=== PATIENT | male | born 1945 | race Caucasian/White ===

== ENCOUNTER 2018-12-21 16:47 | Inpatient (IN) | payer MEDICARE ==
[~2018-12-21] VITALS: Ht 168.9 cm; Wt 112.4 kg
[2018-12-21 17:19] LABS: BASOPHILS 0 % (0-2); EOSINOPHILS 2.4 % (0-7); HEMATOCRIT 27.4 % (42.0-54.0); HEMOGLOBIN 9.2 g/dL (13.5-17.5); IMMATURE GRANULOCYTES 0.2 % (0-5); LYMPHOCYTES 13.8 % (15-50); MCH 28.8 pg (26.0-34.0); MCHC 33.6 g/dL (31.0-37.0); MCV 85.9 fL (80.0-100.0); MEAN PLATELET VOLUME 10.9 fL (7.4-10.4); NEUTROPHILS 71.6 % (40-80); RBC 3.19 10x6/uL (4.20-6.10); RDW 15.1 % (11.5-14.5); WBC 5.1 10x3/uL (4.8-10.8)
[2018-12-21 17:34] LABS: PLATELET COUNT 164 10x3/uL (130-400)
[2018-12-21 17:41] LABS: ANION GAP 11.7 mmol/L (8-16); BILIRUBIN - TOTAL 0.28 mg/dL (0.2-1.3); CALCIUM 8.2 mg/dL (8.5-10.1); CARBON DIOXIDE 26.9 mmol/L (21.0-32.0); CREATININE - SERUM 4.4 mg/dL (0.6-1.3); POTASSIUM - SERUM 5.6 mmol/L (3.5-5.1); PROTEIN - SERUM 5.9 g/dL (6.4-8.2)
[2018-12-21 17:49] LABS: MAGNESIUM - SERUM 2.2 mg/dL (1.8-2.4); TROPONIN-I 0.025 ng/mL (0.000-0.060)
--- NOTE | 2018-12-21 18:37 | MORECARE ---
CASE MANAGEMENT DISCHARGE SUMMARY PATIENT: ABBY PHILLIPS UNIT: [id number] ADM DATE: 12/21/18 AGE: 73 : [birth year] SEX: M ROOM/BED: D.2137 AUTHOR: NICOLASA MATTHEWS PHYSICIAN: REFERRING PHYSICIAN: THANH ALEJANDRO MD DATE OF SERVICE: 12/21/18 Discharge Plan Patient Name: ABBY PHILLIPS Facility: [facility]:[place] : 1945 Planned Disposition: Anticipated Discharge Date: Discharge Date: Expected LOS: Initial Reviewer: [email or web address] Initial Review Date: 12/21/2018 Generated: 12/21/18 7:37 pm Patient Name: ABBY PHILLIPS Page 34531 at 1837 All edits/amendments must be made on the electronic document DICTATION DATE: 12/21/181836 INSURANCE SALES SPECIALIST: APRIL 12/21/181836 RPT#: [id number] DC DATE: STATUS: ADM IN [facility] [address] [place] [address] END OF REPORT
--- NOTE | 2018-12-21 18:39 | NUR ---
1837-RECEIVED VIA STRETCHER TO ROOM FROM THE ED. GLASSES ON. WALSH CATH PATENT WITH YELLOW URINE, SLIGHT BLOOD SEEN IN TUBING. RIGHT AC PIV SEEN WITH SALINE LOCK. ON 2L PER NC. PATIENT IS VERY EDEMATOUS TO ALL EXTREMITIES. BILATERAL SHINS ARE PINK/DISCOLORED TO THEM BILATERAL LARGE BANDAIDS SEEN TO KNEES. BOTTOM LOOKS GOOD, NO SKIN ISSUE THERE. SEEMS SLIGHTLY LETHARGIC. FAMILY IS AT BEDISIDE. SON IN ROOM CALLING FOR MED LIST.
[2018-12-21 18:44] LABS: % SATURATION 10 % (15-55); IRON 22 ug/dl (35-150); TOTAL IRON BIND CAPACITY 205 ug/dl (260-445); UNSAT IRON BIND CAPACITY 183 ug/dl (150-375)
[2018-12-21 18:53] LABS: THYROID STIMULATING HORMONE 5.11 uIU/mL (0.36-3.74)
[2018-12-21] MEDS ORDERED: BAYER ASPIRIN325 MG PO (19:57)
[2018-12-21] MEDS ORDERED: REQUIP1 MG PO ×2 (19:58→19:59)
[2018-12-21] MEDS ORDERED: LISINOPRIL5 MG PO (19:59)
[2018-12-21] MEDS ORDERED: ZYLOPRIM100 MG PO (20:01)
[2018-12-21] MEDS ORDERED: SYNTHROID50 MCG PO (20:03)
[2018-12-21] MEDS ORDERED: CARDURA4 MG PO (20:04)
[2018-12-21] MEDS ORDERED: LIPITOR20 MG PO (20:04)
[2018-12-21] MEDS ORDERED: LYRICA200 MG PO (20:05)
[2018-12-21] MEDS ORDERED: LASIX80 MG PO (20:05)
[2018-12-21] MEDS ORDERED: METOPROLOL TART50 MG PO (20:06)
[2018-12-21] MEDS ORDERED: NEXIUM40 MG PO (20:07)
[2018-12-21] MEDS ORDERED: PLAVIX75 MG PO (20:08)
[2018-12-21] MEDS ORDERED: FERROUS SULFAT325 MG PO (20:09)
[2018-12-21] MEDS ORDERED: VITAMIN D31000 UNIT PO (20:10)
[2018-12-21] MEDS ORDERED: TRAZODONE HCL150 MG PO (20:11)
[2018-12-21] MEDS ORDERED: QUESTRAN LIG1 PACKET PO (20:12)
[2018-12-21] MEDS ORDERED: METOLAZONE5 MG PO (20:12)
[2018-12-21 20:14] VITALS: BP 197/56; BMI 37.2
--- NOTE | 2018-12-21 20:46 | NUR ---
INITIAL ASSEESSMENT COMPLETED. RECIEVED BEDSIDE REPORT. VSS, WITH BP OF 190/56 WILL NOTIFY PROVIDER. AAOX3, WITH LETHARGY. BRUISES AND REDENNED AREA BILAT KNEES, BANDAGES INTACT. PT DENIES ANY NEED FOR PAIN BUT STATES HE FEELS A LITTLE DISCOMFORT IN WALSH SITE/GROIN AREA. MED LIST RECIEVED FROM FAMILY. MED REC COMPLETED. PT ON TELE @ 55 SINUS YVETTE. EXTRA WARM BLANKET PROVIDED AT THIS TIME PER PT REQUEST. PT DENIES ANY FURHTER NEEDS AT THIS TIME. WILL CPOC. CL WITHIN REACH, BED IN LOW, SR UP X2, O2 @ 2L.
--- NOTE | 2018-12-21 21:35 | NUR ---
NOTIFIED PT'S CONTACT LENS TECHNICIANKARLEY ABOUT BP OF 190'S AND PAIN. HE STATES HE WILL ORDER SOME MEDICATIONS AND HE WILL BE ON THE UNIT TO ASSESS PT.
--- NOTE | 2018-12-21 22:51 | NUR ---
PT RESTING IN BED WITH EYES CLOSE. REAASSED BP, 201/56. ALL MEDS GIVEN INCLUDING BP MEDS, AND PRN 10MG HYDRALAZINE. HELD METOPROLOL PER PHOTOGRAMMETRIC STEREO COMPILER ORDER, SINCE HR HAS BEEN RUNNING SINUS YVETTE ON TELE. PT DENIES ANY DISCOMFORT OR PAIN AT THIS TIME. WILL CTM BP.
[2018-12-22] VITALS: BP 201/56
--- NOTE | 2018-12-22 03:15 | NUR ---
BP NOW 155/63. PT LAYING IN BED WITH EYES CLOSED. DENIES ANY FURTHER NEEDS AT THIS TIME. WILL CTM.
[2018-12-22 04:00] VITALS: BP 171/55
[2018-12-22 05:09] LABS: BASOPHILS 0.2 % (0-2); HEMATOCRIT 26.3 % (42.0-54.0); HEMOGLOBIN 8.7 g/dL (13.5-17.5); IMMATURE GRANULOCYTES 0.2 % (0-5); LYMPHOCYTES 14.9 % (15-50); MCH 28.4 pg (26.0-34.0); MCHC 33.1 g/dL (31.0-37.0); MCV 85.9 fL (80.0-100.0); MEAN PLATELET VOLUME 10.9 fL (7.4-10.4); MONOCYTES 14.3 % (2-11); NEUTROPHILS 67.4 % (40-80); PLATELET COUNT 158 10x3/uL (130-400); RBC 3.06 10x6/uL (4.20-6.10); RDW 15.2 % (11.5-14.5)
--- NOTE | 2018-12-22 05:12 | NUR ---
ON ASSESSMENT PT BP 171/55. 0.5ML OF 20MG/ML OF HYDRALAZINE GIVEN @ THIS TIME PER PROVIDERS ORDER. WILL CTM. PT IN BED WITH EYES CLOSE. NO S/S OF DISTRESS.
[2018-12-22 05:27] LABS: ALBUMIN 2.8 g/dL (3.4-5.0); ANION GAP 13.3 mmol/L (8-16); BILIRUBIN - TOTAL 0.32 mg/dL (0.2-1.3); CALCIUM 8.2 mg/dL (8.5-10.1); CARBON DIOXIDE 24.1 mmol/L (21.0-32.0); CREATININE - SERUM 4.5 mg/dL (0.6-1.3); MAGNESIUM - SERUM 2.1 mg/dL (1.8-2.4); PHOSPHOROUS 5.3 mg/dL (2.5-4.9); POTASSIUM - SERUM 5.4 mmol/L (3.5-5.1); PROTEIN - SERUM 5.6 g/dL (6.4-8.2)
--- NOTE | 2018-12-22 07:27 | NUR ---
REPORT RECEIVED. WILL CONTINUE WITH POC. PT CURRENTLY LYING SUPINE. CALL LIGHT W/I REACH. PT IS RESTING AT THE MOMENT. RR EVEN AND UNLABORED ON 2L 02. R.AC PIV IS SALINE LOCKED. PT DENIES ANY NEEDS AT THIS TIME. NO S/S OF DISTRESS NOTED. WILL CTM.
[2018-12-22 08:33] VITALS: BP 142/52
[2018-12-22 10:10] LABS: COMPLEMENT C4 17.9 mg/dL (17.4-52.2)
[2018-12-22 11:15] LABS: ERYTHROCYTE SEDIMENTATION RATE 6 mm/hr (0-20)
[2018-12-22 11:52] VITALS: BP 151/94
[2018-12-22 14:21] VITALS: Ht 168.9 cm; Wt 112.4 kg
[2018-12-22 15:46] VITALS: BP 170/53
--- NOTE | 2018-12-22 17:33 | NUR ---
PT ON BIPAP UPON ENTERING ROOM AND PT REQUESTED TO TAKE OFF SO THAT HE COULD EAT DINNER. REMOVED BIPAP AND PT BEGAN TO EAT. FSBS @1630 WAS 97 AND RECEIVED NO INSULIN. PT HAS SWOLLEN TESTICLE AND COMPLAIN ON PAIN. DISCOVERED THAT THE STATLOCK WAS ORIGINALLY PLACED TOO FAR DOWN THE LEG. REMOVED OLD STATLOCK, CLEANED WALSH CATH, AND PLACED NEW STATLOCK SO THAT IT WOULD NOT PULL ON CATHETER. PT VERBALIZED THAT IT FELT BETTER. RR EVEN AND UNLABORED ON 2L 02. WILL PASS BIPAP ON ONCE PT FINISHED EATING DINNER. PT CLEANED AND NEW LINEN PLACED. WILL CTM. DOBUTAMINE INFUSING @2.5MCG/KG/MIN.
[2018-12-22 18:03] LABS: APPEARANCE CLOUDY (CLEAR); BILIRUBIN NEGATIVE (NEGATIVE); COLOR YELLOW (YELLOW); CREATININE - URINE 114.4 mg/dL (30-125); GLUCOSE NEGATIVE (NEGATIVE); KETONE NEGATIVE (NEGATIVE); NITRITE NEGATIVE (NEGATIVE); PROTEIN 2+ mg/dL (NEGATIVE); PROTEIN - URINE 232.1 mg/dL (0.0-11.9); SPECIFIC GRAVITY 1.015 (1.005-1.020); UROBILINOGEN NORMAL (NORMAL)
[2018-12-22 18:04] LABS: EPITHELIAL CELLS 0-5 /hpf (0-5); WHITE CELLS - URINE 0-5 /hpf (0-5)
[2018-12-22 18:05] LABS: BACTERIA FEW /hpf (NONE SEEN)
--- NOTE | 2018-12-22 18:36 | NUR ---
I have reviewed this patient and I concur with the Shift Assessment completed by the Licensed Practical Nurse today this shift.
--- NOTE | 2018-12-22 19:30 | NUR ---
PT ASLEEP, SNORING WITH MOUTH OPEN AT TIMES. 2L O2 NC. PT HAS NO S/S OF DISTRESS. RESP EVEN AND UNLABORED. NAME AND DATE PLACED ON BOARD. BED LOW AND CALL LIGHT IN REACH. WALSH CATH NOTED. NO KINKS AND OFF FLOOR. WILL CPOC
[2018-12-22 20:00] VITALS: BP 180/59
--- NOTE | 2018-12-22 23:14 | NUR ---
FSBS IS 113 NO INSULIN NEEDED. PT AAO TO NAME AND . REORIENTED PT TO PLACE AND YEAR AND SITUATION. PT ABLE TO TELL PLACE BEFORE NURSE LEFT ROOM NEEDED REORIENTATION ON YEAR AGAIN. PT DENIES ANY NEEDS. DOBUTAMINE INFUSING ORDERED. DENIES ANY NEEDS. ALARM ON AND ACTIVE. WILL CPOC
[2018-12-23] VITALS: BP 155/45
[2018-12-23 05:09] LABS: BASOPHILS 0 % (0-2); EOSINOPHILS 1.4 % (0-7); HEMATOCRIT 25.5 % (42.0-54.0); HEMOGLOBIN 8.5 g/dL (13.5-17.5); IMMATURE GRANULOCYTES 0.2 % (0-5); LYMPHOCYTES 13.3 % (15-50); MCH 28.3 pg (26.0-34.0); MCHC 33.3 g/dL (31.0-37.0); MEAN PLATELET VOLUME 11.3 fL (7.4-10.4); MONOCYTES 13.6 % (2-11); NEUTROPHILS 71.5 % (40-80); PLATELET COUNT 166 10x3/uL (130-400); RDW 15.2 % (11.5-14.5); WBC 6.3 10x3/uL (4.8-10.8)
--- NOTE | 2018-12-23 05:35 | NUR ---
PT ON BIPAP. TOOK OFF FOR MORNING MEDS AND PLACED BACK ON. PT BP IS ELEVATED. 196/57 PRN HYDRALAZINE GIVEN ORDERED. DOBUTAMINE INFUSING ORDERED. PT HAS NO S/S OF DISTRESS. BEDLOW AND CALL LIGHT IN REACH. ATTEMPTING TO COLLECT URINE THAT IS ORDERED FROM WALSH TUBE. WILL CPOC
[2018-12-23 05:51] LABS: ALBUMIN 2.8 g/dL (3.4-5.0); ANION GAP 12.7 mmol/L (8-16); BILIRUBIN - TOTAL 0.3 mg/dL (0.2-1.3); CALCIUM 8.2 mg/dL (8.5-10.1); CARBON DIOXIDE 25.7 mmol/L (21.0-32.0); CREATININE - SERUM 4.9 mg/dL (0.6-1.3); MAGNESIUM - SERUM 2.2 mg/dL (1.8-2.4); PHOSPHOROUS 5.4 mg/dL (2.5-4.9); POTASSIUM - SERUM 5.4 mmol/L (3.5-5.1); PROTEIN - SERUM 5.6 g/dL (6.4-8.2)
--- NOTE | 2018-12-23 05:57 | NUR ---
CLEANED PT AND CHANGED LINEN. PT HAS CONFUSION. NO S/S OF DISTRESS. PT CALL LIGHT IN REACH. ON 2L O2 NC. WILL CPOC
[2018-12-23 07:04] VITALS: BP 106/57
--- NOTE | 2018-12-23 07:34 | NUR ---
ROUNDING DONE WITH PATIENT LAYING ON BACK WITH 2L PER NC ON. RESTING WITH EYES CLOSED, AROUSES EASILY. ON HEART MONITOR SHOWING SR W BBB, HR 65. BIPAP IN ROOM. RIGHT AC PIV SEEN WITH DOBUTAMINE INFUSING AT 2.5 MCG/8 CC PER PUMP. WALSH CATH PATENT WITH YELLOW URINE.
--- NOTE | 2018-12-23 08:08 | NUR ---
PAGE INTO JOSE ALEJANDRO GARNER APN R/T B/P 132/30 AND PATIENT IS ON DOBUTAMINE AND ALSO SUPPOSE TO HAVE BUMEX. AWAITING CALL BACK.
[2018-12-23 08:13] VITALS: BP 132/30
--- NOTE | 2018-12-23 08:21 | NUR ---
JOSE ALEJANDRO GARNER APN TO CALL BACK. ASKED THAT I CALL MAYDA SANCHES APN. I DID AND SHE SAID TO GO AHEAD AND GIVE THE MEDS.
--- NOTE | 2018-12-23 08:35 | NUR ---
0830-PATIENT NOT OPENING HIS EYES OR RESPOMDIMNG TO ME WITH A STERNAL RUB. RAPID RESPONSE CALLED. PLACED ON BIPAP.
[2018-12-23 09:17] LABS: FOLATE (FOLIC ACID) - SERUM 5.3 ng/mL (>3.0)
--- NOTE | 2018-12-23 09:36 | NUR ---
PATIENT IS MORE AWAKE NOW, TALKING TO ME. STATES HE DOES NOT KNOW WHAT HAPPEN THIS AM. I TOLD HIM. WILL LEAVE HIM ON BIPAP.
--- NOTE | 2018-12-23 10:49 | NUR ---
MARCOS Caruso T TO PLACE PATIENT BACK ON NASAL CANNULA. DR MACIAS IN TO SEE PATIENT. AWAITING NEW ORDERS.
--- NOTE | 2018-12-23 11:59 | NUR ---
CALLED ISAAK IN PHARMACY FOR SOURAV.
[2018-12-23 12:21] VITALS: BP 157/51
--- NOTE | 2018-12-23 13:04 | NUR ---
ON NASAL CANNULA, AROUSES EASILY WHEN TOUCHED. ALERT AND TALKING.
--- NOTE | 2018-12-23 14:07 | NUR ---
CALL PLACED TO MAYDA SANCHES APN PATIENT HAS ONLY HAD 100 CC URINE OUTPUT FOR THIS SHIFT AT THIS TIME. HAD TO LEAVE A VOICEMAIL.
[2018-12-23 14:17] LABS: T4 THYROXINE 5.1 ug/dL (4.7-13.3)
--- NOTE | 2018-12-23 14:25 | NUR ---
PATIENT IS VERY LETHARGIC AGAIN WHILE ON BIPAP. MARCOS WITH RT HERE. VSS. B/P 156/43, SAT IS 94%, AND HR 69. FSBS IS 123. LOOKING THOUGH ORDERS CT HEAD NOT PLACED. STAT ORDER IN. 1450-RADIOLOGY HERE FOR STAT CT OF HEAD. FEMALE FAMILY MEMBERS HERE.
--- NOTE | 2018-12-23 15:15 | NUR ---
RETURNS FROM CT, AROUSES SOME.
[2018-12-23 16:47] VITALS: BP 187/45
--- NOTE | 2018-12-23 17:01 | NUR ---
TAKEN OFF BIPAP AND PLACED ON NASAL CANNULA. FAMILY AT BEDSIDE. PATIENT TO EAT SUPPER THEN I WILL PLACED HIM BACK ON IT.
--- NOTE | 2018-12-23 17:06 | NUR ---
NEW ORDERS PER DR ALEJANDRO R/T SIOBHAN.
--- NOTE | 2018-12-23 17:43 | NUR ---
PLACED BACK ON BIPAP. PATIENT IS ALERT AND TALKING TO LOTS OF FAMILY IN THE ROOM.
--- NOTE | 2018-12-23 18:03 | NUR ---
PATIENT HAS NOT HAD A BOWEL MOVEMENT FOR STOOL COLLECTION FOR THIS SHIFT. WILL PASS TO NEXT SHIFT.
[2018-12-23 20:00] VITALS: BP 143/30
--- NOTE | 2018-12-23 20:05 | NUR ---
RECIEVED LAYING IN BED WITH EYES CLOSED AND CPAP IN PLACE. OPENS EYES WITH VERBAL STIMULI. ORIENTED TO PERSON. F/C INTACT WITH CLEAR YELLOW URINE DRAINING TO BEDSIDE DRAINAGE BAG. TELEMETRY IN PLACE. IV TO RIGHT AC WITH DOBUTAMINE AT 8CC/HR AND D5NS AT 30CC/HE.REMAINS ON 100CC FLUID RESTRICTION.
[2018-12-23 20:06] LABS: SPE - A/G RATIO 1.4 (0.7-1.7); SPE - ALPHA-1 GLOBULIN 0.3 g/dL (0.0-0.4); SPE - ALPHA-2 GLOBULIN 0.6 g/dL (0.4-1.0); SPE - BETA GLOBULIN 0.6 g/dL (0.7-1.3); SPE - GAMMA GLOBULIN 0.8 g/dL (0.4-1.8); SPE - M-SPIKE Not Observed g/dL (Not Observed); SPE - TOTAL PROTEIN 5.2 g/dL (6.0-8.5)
[2018-12-24] VITALS: BP 189/50
--- NOTE | 2018-12-24 03:39 | NUR ---
C/O CPAP MASK HURTING HIS NOSE. FOAM DSG APPLIED TO EASE PRESSURE. STATES IT FEELS BETTER.
[2018-12-24 05:00] VITALS: BP 136/69
--- NOTE | 2018-12-24 07:46 | NUR ---
ROUNDING DONE WITH PATIENT BEING ON BIPAP, AROUSES EASILY WHEN AWOKEN. ON HEART MONITOR SHOWING SR W BBB, HR 71. RIGHT AC PIV WITH DOBUTAMINE INFUSING AT 8 CC/HR. WALSH CATH PATENT WITH YELLOW URINE. GENITALS ARE VERY SWOLLEN. NPO STATUS FOR POSSIBLE SURGERY TODAY. COMPLETE SURGERY BATH AND LINENS DONE.
[2018-12-24 08:00] LABS: BASOPHILS 0 % (0-2); EOSINOPHILS 1.8 % (0-7); HEMATOCRIT 24.9 % (42.0-54.0); HEMOGLOBIN 8.4 g/dL (13.5-17.5); IMMATURE GRANULOCYTES 0.2 % (0-5); LYMPHOCYTES 13.5 % (15-50); MCH 28.4 pg (26.0-34.0); MCHC 33.7 g/dL (31.0-37.0); MCV 84.1 fL (80.0-100.0); MEAN PLATELET VOLUME 11.1 fL (7.4-10.4); MONOCYTES 18.6 % (2-11); NEUTROPHILS 65.9 % (40-80); PLATELET COUNT 169 10x3/uL (130-400); RBC 2.96 10x6/uL (4.20-6.10); RDW 15.2 % (11.5-14.5); WBC 6.5 10x3/uL (4.8-10.8)
[2018-12-24 08:26] LABS: ALBUMIN 2.7 g/dL (3.4-5.0); ANION GAP 13.9 mmol/L (8-16); BILIRUBIN - TOTAL 0.31 mg/dL (0.2-1.3); CALCIUM 8.2 mg/dL (8.5-10.1); CREATININE - SERUM 5.4 mg/dL (0.6-1.3); MAGNESIUM - SERUM 2.2 mg/dL (1.8-2.4); PHOSPHOROUS 5.3 mg/dL (2.5-4.9); POTASSIUM - SERUM 4.9 mmol/L (3.5-5.1); PROTEIN - SERUM 5.5 g/dL (6.4-8.2)
--- NOTE | 2018-12-24 09:24 | NUR ---
I TRIED CALLING [employer]) TO LET HER KNOW THAT PATIENT IS GOING TO SURGERY TODAY. LEFT VOICE MAIL.
--- NOTE | 2018-12-24 09:40 | EC ---
PATIENT:ABBY PHILLIPS DATE OF SERVICE: 12/21/18 SEX: M MEDICAL RECORD: [id number] DATE OF : [birth year] LOCATION:D.M2 D.213 AGE OF PATIENT: 73 ADMISSION DATE: 12/21/18 REFERRING PHYSICIAN: INTERPRETING PHYSICIAN: HOLLIS KINGSTON MD ECHOCARDIOGRAM REPORT ECHO CHARGES 4 ECHO COMPLETE Date: 12/22/18 CLINICAL DIAGNOSIS: DYSPNEA ECHOCARDIOGRAPHIC MEASUREMENTS (adult normal given) AC root (d.<3.7cm) 2.7 cm LV Septum d (<1.2 cm> 1.0 cm Valve Excursion 1.1 cm LV Septum (systole) 1.7 cm Left Atria (s.<4.0cm> 4.5 cm LVPW d(<1.2cm) 1.2 cm RV (d.<2.3cm) 3.4 cm LVPW (sytole) 1.5 cm LV diastole(<5.6CM) 6.2 cm MV E-F(>70mm/sec) cm LV systole 3.7 cm LVOT Diameter 1.5 cm MV exc.(>10mm) cm Est.ejection fraction (50-75%) % DOPPLER: LVIT cm/sec A 92 cm/sec E 104 cm/sec LA cm/sec RVSP 53.5 mmHg LVOT 128 cm/sec AOP1/2T m/s Asc. Ao 191 cm/sec RVOT 79 cm/sec RA cm/sec PA 108 cm/sec AV Gradient Peak 14.6 mmHg AV Mean 9.2 mmHg AV Area 1.2 cm MV Gradient Peak mmHg MV Mean mmHg MV Area cm COMMENTS: Structural Mill Supervisor: Petar HERNÁNDEZ Store Specialist: 1 Dr. Kingston TAPE# PACS Pericardial Effusion N DATE OF SERVICE: FINDINGS: 1. Left ventricular chamber size is mildly dilated. Left ventricular systolic function is preserved at 55%. 2. Left atrium is enlarged at 4.5 cm. Right atrium and right ventricular chamber sizes are within normal limits. 3. Valvular structures have normal structure and motion. 4. Doppler interrogation reveals mild tricuspid regurgitation, no other valvular insufficiency or stenosis; however, pulmonary systolic pressure is ECHOCARDIOGRAM REPORT [id number] ABBY PHILLIPS elevated at 54 mmHg. 5. No evidence of pericardial effusion or left ventricular thrombus. TRANSINT:[id number] Voice Confirmation ID: [id number] DOCUMENT ID: [id number] HOLLIS KINGSTON MD at 0940 CC: [id number] DICTATION DATE: 12/22/18951 WELFARE ELIGIBILITY INTERVIEWER: 12/22/18 1219 ADM IN [facility] [address] [id number]
--- NOTE | 2018-12-24 09:40 | NUR ---
0936-PERMITS ARE SIGNED.
[2018-12-24 10:06] LABS: INR 1.18 (0.85-1.17); PROTIME 14.4 SECONDS (11.6-15.0)
--- NOTE | 2018-12-24 11:05 | MORECARE ---
CASE MANAGEMENT DISCHARGE SUMMARY PATIENT: ABBY PHILLIPS UNIT: [id number] ADM DATE: 12/21/18 AGE: 73 : [birth year] SEX: M ROOM/BED: D.2137 AUTHOR: NICOLASA MATTHEWS PHYSICIAN: REFERRING PHYSICIAN: THANH ALEJANDRO MD DATE OF SERVICE: 12/24/18 Discharge Plan Patient Name: ABBY PHILLIPS [facility] : 1945 Planned Disposition: Anticipated Discharge Date: Discharge Date: Expected LOS: Initial Reviewer: [email or web address] Initial Review Date: 12/21/2018 Generated: 12/24/18 12:04 pm DCPIA - Discharge Planning Initial Assessment Updated by [email or web address]: Lizzie Basurto on 12/24/18 10:58 am * Is the patient Alert and Oriented? Yes * How many steps to enter\exit or inside your home? NONE * PCP [facility] SEAN FRIEDMAN * Pharmacy [facility] IN [place], [place] * Preadmission Environment Home with Family * ADLs Independent * Equipment BIPAP Cane Oxygen Wheelchair * Other Equipment OXYGEN STATIONARY UNIT AND PORTABLE, CANE, WHEELCHAIR, SHOWER CHAIR * List name and contact numbers for known caregivers / representatives who currently or will assist patient after discharge: [facility] [phone] * Verbal permission to speak to the caregivers and representatives has been obtained from the patient. No * Community resources currently utilized None * Please name any agencies selected above. N/A * Additional services required to return to the preadmission environment? Yes * Can the patient safely return to the preadmission environment? Yes * Has this patient been hospitalized within the prior 30 days at any hospital? No Last DP export: 12/21/18 5:37 p Patient Name: ABBY PHILLIPS Page 13587 at 1105 All edits/amendments must be made on the electronic document DICTATION DATE: 12/24/18 110 FOOT ORTHOPEDIST: APRIL 12/24/18 1104 RPT#: [id number] DC DATE: STATUS: ADM IN [facility] [address] [place] [address] END OF REPORT
--- NOTE | 2018-12-24 11:15 | MORECARE ---
CASE MANAGEMENT DISCHARGE SUMMARY PATIENT: ABBY PHILLIPS UNIT: [id number] ADM DATE: 12/21/18 AGE: 73 : [birth year] SEX: M ROOM/BED: D.7695 AUTHOR: BYRON,DOC PHYSICIAN: REFERRING PHYSICIAN: THANH ALEJANDRO MD DATE OF SERVICE: 12/24/18 Discharge Plan Patient Name: ABBY PHILLIPS Facility: [facility]:[place] : 1945 Planned Disposition: Anticipated Discharge Date: Discharge Date: Expected LOS: Initial Reviewer: [email or web address] Initial Review Date: 12/21/2018 Generated: 12/24/18 12:15 pm Comments DCP- Discharge Planning Updated by [id number]: Lizzie Basurto on 12/24/18 10:[address] CM VISITED W/ THE PATIENT AT THE BEDSIDE. HE STATES HE IS FEELING WORSE TODAY. PATIENT IS NPO FOR SURGERY FOR DIALYSIS ACCESS. HE STATED HE WAS COLD. CM PROVIDED A WARM BLANKET. HE STATED HE HAD ABDOMINAL PAIN AND "WAS HURTING ALL OVER." CM ADVISED HIS PRIMARY NURSE. THE PATIENT PLANS TO RETURN TO HOME AT DISCHARGE. LIVES WITH HIS SISTER. IS WILLING TO CONSIDER HOME HEALTH IF NEEDED. DID NOT GO INTO A LONG EXPLANATION HE IS UNCOMFORTABLE. HAS DME NOTED BUT CANNOT RECALL THE PROVIDER'S NAME. THE DME COMPANY IS LOCATED IN [place]. PHARMACY- [facility] IN [place] PCP IS LOCATED IN [facility]. CM WILL F/U WHEN PATIENT IS MORE COMFORTABLE. DCPIA - Discharge Planning Initial Assessment Updated by [email or web address]: Lizzie Basurto on 12/24/18 10:58 am * Is the patient Alert and Oriented? Yes * How many steps to enter\\exit or inside your home? NONE * PCP [facility] SEAN FRIEDMAN * Pharmacy [facility] IN [place], [place] * Preadmission Environment Home with Family * ADLs Independent * Equipment BIPAP Cane Oxygen Wheelchair * Other Equipment OXYGEN STATIONARY UNIT AND PORTABLE, CANE, WHEELCHAIR, SHOWER CHAIR * List name and contact numbers for known caregivers / representatives who currently or will assist patient after discharge: PARRISH GORDON- [facility]- [phone] * Verbal permission to speak to the caregivers and representatives has been obtained from the patient. No * Community resources currently utilized None * Please name any agencies selected above. N/A * Additional services required to return to the preadmission environment? Yes * Can the patient safely return to the preadmission environment? Yes * Has this patient been hospitalized within the prior 30 days at any hospital? No Last DP export: 12/24/18 10:05 a Patient Name: ABBY PHILLIPS Page 31892 at 1115 All edits/amendments must be made on the electronic document DICTATION DATE: 12/24/18 111 FARE REGISTER REPAIRER: APRIL 12/24/181113 RPT#: [id number] ID DATE: STATUS: ADM IN [facility] [address] [place] [address] END OF REPORT
--- NOTE | 2018-12-24 11:22 | NUR ---
TO OR VIA BED WITH PRE-OP OF ANCEF.
--- NOTE | 2018-12-24 13:55 | NUR ---
Nutrition follow-up: Pt NPO for sursgery today; dailysis access placement PO intake of renal diet has been ~75% of meal Labs reviewed WT: 233# RDN following.
--- NOTE | 2018-12-24 14:34 | NUR ---
PATIENT TO RETURN TO ROOM WITH NO SURGERY DONE AT THIS TIME. I CALLED SURGERY TO HAVE SOMEONE PLEASE COME AND TALK TO THE FAMILY. NO ANSWER.
--- NOTE | 2018-12-24 14:47 | NUR ---
DR RAE OFFICE TO CALL AND SPEAK TO HANDY (SISTER) AND TELLS HER THAT SURGERY HAS BEEN PUT OFF TILL THURSDAY. THIS IS WHAT HANDY TELLS ME. APPLE JUICE AND CRANBERRY JUICE GIVEN TO PATIENT.
[2018-12-24 16:11] LABS: ANCA - ANTIMYELOPEROXIDASE <9.0 U/mL (0.0-9.0); ANCA - ANTIPROTEINASE 3 <3.5 U/mL (0.0-3.5); ANCA - ATYPICAL <1:20 titer (Neg:<1:20); ANCA - CYTOPLASMIC <1:20 titer (Neg:<1:20); ANCA - PERINUCLEAR <1:20 titer (Neg:<1:20)
[2018-12-24 17:09] LABS: UPE RAND - ALBUMIN 68.9 % (()); UPE RAND - ALPHA 1 GLOBULIN 1.2 % (()); UPE RAND - ALPHA 2 GLOBULIN 5.1 % (()); UPE RAND - BETA GLOBULIN 11.1 % (()); UPE RAND - GAMMA GLOBULIN 13.6 % (())
--- NOTE | 2018-12-24 17:17 | MORECARE ---
CASE MANAGEMENT DISCHARGE SUMMARY PATIENT: ABBY PHILLIPS UNIT: [id number] ADM DATE: 12/21/18 AGE: 73 : 47 SEX: M ROOM/BED: D.5235 AUTHOR: BYRON,DOC PHYSICIAN: REFERRING PHYSICIAN: THANH ALEJANDRO MD DATE OF SERVICE: 12/24/18 Discharge Plan Patient Name: ABBY PHILLIPS Facility: [facility]:[place] : 1945 Planned Disposition: Home Anticipated Discharge Date: Discharge Date: Expected LOS: Initial Reviewer: [email or web address] Initial Review Date: 12/21/2018 Generated: 12/24/18 6:17 pm Comments DCP- Discharge Planning Updated by [email or web address]: Lizzie Basurto on 12/24/18 10:[address] CM VISITED W/ THE PATIENT AT THE BEDSIDE. HE STATES HE IS FEELING WORSE TODAY. PATIENT IS NPO FOR SURGERY FOR DIALYSIS ACCESS. HE STATED HE WAS COLD. CM PROVIDED A WARM BLANKET. HE STATED HE HAD ABDOMINAL PAIN AND "WAS HURTING ALL OVER." CM ADVISED HIS PRIMARY NURSE. THE PATIENT PLANS TO RETURN TO HOME AT DISCHARGE. LIVES WITH HIS SISTER. IS WILLING TO CONSIDER HOME HEALTH IF NEEDED. DID NOT GO INTO A LONG EXPLANATION HE IS UNCOMFORTABLE. HAS DME NOTED BUT CANNOT RECALL THE PROVIDER'S NAME. THE DME COMPANY IS LOCATED IN [place]. PHARMACY- [facility] IN [place] PCP IS LOCATED IN [facility]. CM WILL F/U WHEN PATIENT IS MORE COMFORTABLE. DCPIA - Discharge Planning Initial Assessment Updated by [id number]: Lizzie Basurto on 12/24/18 10:58 am * Is the patient Alert and Oriented? Yes * How many steps to enter\\exit or inside your home? NONE * PCP [facility] SEAN FRIEDMAN * Pharmacy [facility] IN [place], [place] * Preadmission Environment Home with Family * ADLs Independent * Equipment BIPAP Cane Oxygen Wheelchair * Other Equipment OXYGEN STATIONARY UNIT AND PORTABLE, CANE, WHEELCHAIR, SHOWER CHAIR * List name and contact numbers for known caregivers / representatives who currently or will assist patient after discharge: PARRISH GORDON- [facility]- [phone] * Verbal permission to speak to the caregivers and representatives has been obtained from the patient. No * Community resources currently utilized None * Please name any agencies selected above. N/A * Additional services required to return to the preadmission environment? Yes * Can the patient safely return to the preadmission environment? Yes * Has this patient been hospitalized within the prior 30 days at any hospital? No Last DP export: 12/24/18 10:15 a Patient Name: ABBY PHILLIPS Page 53049 at 1717 All edits/amendments must be made on the electronic document DICTATION DATE: 12/24/181716 GAS PLANT OPERATOR: APRIL 12/24/181716 RPT#: [id number] DC DATE: STATUS: ADM IN [facility] [address] [place] [address] END OF REPORT
--- NOTE | 2018-12-24 17:19 | NUR ---
SITTING UP IN THE BED EATING SUPPER, FEMALE MEMBER AT BEDSIDE. EMPTIED 700 CC OF CLEAR URINE FROM WALSH CATH. PATIENT IS ALERT AND TALKING. WILL CONTINUE TO MONITOR AND ASSESS OFTEN.
--- NOTE | 2018-12-24 17:38 | NUR ---
NO BOWEL MOVEMENT FOR THIS SHIFT TO BE OBTAINED, WILL PASS TO NEXT SHIFT.
[2018-12-24 17:57] VITALS: BP 115/44
--- NOTE | 2018-12-24 18:04 | NUR ---
CHARLEY (SON ) AND DR COOPER ARE AWARE OF SURGERY FOR HEMISPLIT TOMORROW. I ALSO CALLED HARJIT REBOLLEDOSPEEDER MACHINE OPERATOR AND MADE AWARE OF SURGERY.
--- NOTE | 2018-12-24 19:08 | NUR ---
PATIENT CLEANED UP FROM LARGE AMOUT STOOL, SENT TO LAB OREFERED.
--- NOTE | 2018-12-24 19:30 | NUR ---
EVENING ROUNDS COMPLETED. REPORT RECEIVED. PT SITTING UP IN BED WITH EYES OPEN, RR EVEN AND UNLABORED. BED IN LOW POSITION. NO S/S OF DISTRESS NOTED. 72 SINUS ON TELEMETRY. INTRODUCED SELF TO PT. PT REQUESTED TO BE PLACED ON BIPAP. NOTIFIED RESPIRATORY. PT DENIES FURTHER NEEDS AT THIS TIME. CALL LIGHT IN REACH. WILL CTM.
[2018-12-24 20:00] VITALS: BP 191/65
[2018-12-25] VITALS: BP 172/64
--- NOTE | 2018-12-25 01:23 | NUR ---
ADMINISTERED ORDERED PHENERGRAN FOR PT COMPLAINTS OF NAUSEA, ASSISTED PT IN ADJUSTING BIPAP SECURELY. PT DENIES FURTHER NEEDS AT THIS TIME. CALL LIGHT IN REACH. WILL CTM.
[2018-12-25 04:00] VITALS: BP 110/97
--- NOTE | 2018-12-25 04:39 | NUR ---
I have reviewed this patient and I concur with the Shift Assessment completed by the Licensed Practical Nurse today this shift.
[2018-12-25 05:43] LABS: BASOPHILS 0.2 % (0-2); EOSINOPHILS 1.7 % (0-7); HEMOGLOBIN 8.8 g/dL (13.5-17.5); IMMATURE GRANULOCYTES 2.3 % (0-5); LYMPHOCYTES 12.7 % (15-50); MCH 28.5 pg (26.0-34.0); MCHC 33.8 g/dL (31.0-37.0); MCV 84.1 fL (80.0-100.0); MONOCYTES 15.5 % (2-11); NEUTROPHILS 67.6 % (40-80); PLATELET COUNT 161 10x3/uL (130-400); RBC 3.09 10x6/uL (4.20-6.10); RDW 15.2 % (11.5-14.5)
[2018-12-25 05:44] LABS: WBC 8.2 10x3/uL (4.8-10.8)
[2018-12-25 06:09] LABS: ALBUMIN 2.6 g/dL (3.4-5.0); ANION GAP 14.2 mmol/L (8-16); BILIRUBIN - TOTAL 0.35 mg/dL (0.2-1.3); CALCIUM 8.1 mg/dL (8.5-10.1); CARBON DIOXIDE 21.8 mmol/L (21.0-32.0); CREATININE - SERUM 4.8 mg/dL (0.6-1.3); MAGNESIUM - SERUM 2.2 mg/dL (1.8-2.4); PHOSPHOROUS 4.6 mg/dL (2.5-4.9); PROTEIN - SERUM 5.7 g/dL (6.4-8.2)
[2018-12-25 10:08] VITALS: BP 135/48
--- NOTE | 2018-12-25 10:32 | NUR ---
ROHITH YANEZ AT BEDSIDE AND STATED THAT TEXT HER THIS AM AND PATIENT WILL HAVE DIALYSIS ACCESS PLACEMENT ON THURSDAY BECAUSE HIS CREATININE HAS IMPROVED AND DOES NOT NEED DIALYSIS RIGHT NOW. THIS JOURNEYMAN WELDER WAS UNAWARE OF CHANGES AND HAS KEPT PATIENT NPO ALL MORNING.
--- NOTE | 2018-12-25 11:57 | NUR ---
FSBS 107. NO INSULIN PER SLIDING SCALE.
--- NOTE | 2018-12-25 17:31 | NUR ---
FSBS 196. 2 UNITS HUMALOG ADMINISTERED PER SLIDING SCALE. MEDICATED FOR PAIN AT THIS TIME.
[2018-12-25 18:55] VITALS: BP 210/61
--- NOTE | 2018-12-25 19:30 | NUR ---
EVENING ROUNDS COMPLETED. REPORT RECEIVED. PT SITTING UP IN BED WITH EYES OPEN, RR EVEN AND UNLABORED. NO S/S OF DISTRESS NOTED. CALL LIGHT IN REACH. INTRODUCED SELF TO PT. PT DENIES FURTHER NEEDS AT THIS TIME. WILL CTM.
[2018-12-25 20:00] VITALS: BP 180/68
[2018-12-26] VITALS: BP 188/70
--- NOTE | 2018-12-26 01:22 | NUR ---
ADMINISTERED ORDERED HYDRALAZINE FOR PT BLOOD PRESSURE OF 199/65.
--- NOTE | 2018-12-26 02:54 | NUR ---
PT BLOOD PRESSURE HAS DECREASED TO 175/34. WILL CTM.
--- NOTE | 2018-12-26 03:20 | NUR ---
I have reviewed this patient and I concur with the Shift Assessment completed by the Licensed Practical Nurse today this shift.
[2018-12-26 04:00] VITALS: BP 185/80
[2018-12-26 06:43] LABS: BASOPHILS 0.1 % (0-2); EOSINOPHILS 3.4 % (0-7); HEMATOCRIT 24.2 % (42.0-54.0); HEMOGLOBIN 8.3 g/dL (13.5-17.5); IMMATURE GRANULOCYTES 0.3 % (0-5); LYMPHOCYTES 11.3 % (15-50); MCH 28.8 pg (26.0-34.0); MCHC 34.3 g/dL (31.0-37.0); MEAN PLATELET VOLUME 11.5 fL (7.4-10.4); MONOCYTES 13.3 % (2-11); NEUTROPHILS 71.6 % (40-80); PLATELET COUNT 187 10x3/uL (130-400); RBC 2.88 10x6/uL (4.20-6.10); RDW 15.4 % (11.5-14.5)
--- NOTE | 2018-12-26 07:00 | NUR ---
RECEIVED REPORT. ASSUMED CARE OF PATIENT. CALL LIGHT WITHIN REACH. NO DISTRESS. RESTING WELL WITH EYES CLOSED, EASILY AROUSED. RESP EVEN AND UNLABORED. F/C TO DRAINAGE VIA GRAVITY. DENIES PAIN.
[2018-12-26 07:14] LABS: ALBUMIN 2.5 g/dL (3.4-5.0); ANION GAP 12.8 mmol/L (8-16); BILIRUBIN - TOTAL 0.28 mg/dL (0.2-1.3); CALCIUM 8.1 mg/dL (8.5-10.1); CARBON DIOXIDE 25.5 mmol/L (21.0-32.0); CREATININE - SERUM 4.3 mg/dL (0.6-1.3); MAGNESIUM - SERUM 2.1 mg/dL (1.8-2.4); PHOSPHOROUS 4.4 mg/dL (2.5-4.9); POTASSIUM - SERUM 4.3 mmol/L (3.5-5.1); PROTEIN - SERUM 5.5 g/dL (6.4-8.2)
[2018-12-26 08:51] VITALS: BP 181/60
--- NOTE | 2018-12-26 08:54 | NUR ---
RESTING IN BED. CONSUMED AM MEAL. NO DISTRESS. CALL LIGHT WITHIN REACH.
--- NOTE | 2018-12-26 11:01 | NUR ---
ASSISTED PATIENT BACK TO BED WITH THE HELP OF PHYSICAL THERAPY. NEW STAT LOCK TO RIGHT THIGH APPLIED OLD ONE HAS CAME OFF. NO DISTRESS. RESTING WITH EYES CLOSED.
--- NOTE | 2018-12-26 11:56 | NUR ---
EPOGEN NOT AVAILABLE FROM PHARMACY YET. STILL WAITING.
--- NOTE | 2018-12-26 11:57 | NUR ---
FSBS 172. 2 UNITS HUMALOG ADMINISTERED PER SLIDING SCALE. NO DISTRESS.
[2018-12-26 12:07] VITALS: BP 173/60
[2018-12-26 16:59] VITALS: BP 170/60
--- NOTE | 2018-12-26 17:32 | NUR ---
FSBA 176. 2 UNITS HUMULOG ADMINISTERED PER SLIDING SCALE. PATIENT SITTING UP IN BED CONSUMING PM MEAL WITH FAMILY AT BEDSIDE. NO DISTRESS.
[2018-12-26 20:00] VITALS: BP 180/60
--- NOTE | 2018-12-26 23:51 | NUR ---
EVENING ROUNDS COMPLETED. REPORT RECEIVED. PT SITTING UP IN BED WITH EYES OPEN, BIPAP IN PLACE. EVENING MEDICATIONS ADMINISTERED WITHOUT ISSUE. 167 BLOOD SUGAR TREATED ORDERED PER SLIDING SCALE. NO S/S OF DISTRESS NOTED. CALL LIGHT IN REACH. WILL CTM.
[2018-12-27] VITALS: BP 170/77
--- NOTE | 2018-12-27 01:10 | NUR ---
ADMINISTERED ORDERED CATAPRES 0.1 MG TAB FOR PT BLOOD PRESSURE OF 179/77.
[2018-12-27 04:00] VITALS: BP 166/40
--- NOTE | 2018-12-27 04:00 | NUR ---
I have reviewed this patient and I concur with the Shift Assessment completed by the Licensed Practical Nurse today this shift.
[2018-12-27 05:37] LABS: BASOPHILS 0.1 % (0-2); EOSINOPHILS 2.8 % (0-7); HEMATOCRIT 24.1 % (42.0-54.0); HEMOGLOBIN 8.1 g/dL (13.5-17.5); IMMATURE GRANULOCYTES 0.3 % (0-5); LYMPHOCYTES 10.2 % (15-50); MCH 28.5 pg (26.0-34.0); MCHC 33.6 g/dL (31.0-37.0); MCV 84.9 fL (80.0-100.0); MEAN PLATELET VOLUME 11.2 fL (7.4-10.4); MONOCYTES 13.2 % (2-11); NEUTROPHILS 73.4 % (40-80); PLATELET COUNT 189 10x3/uL (130-400); RBC 2.84 10x6/uL (4.20-6.10); RDW 15.4 % (11.5-14.5); WBC 7.4 10x3/uL (4.8-10.8)
[2018-12-27 06:10] LABS: ALBUMIN 2.5 g/dL (3.4-5.0); ANION GAP 13.5 mmol/L (8-16); BILIRUBIN - TOTAL 0.32 mg/dL (0.2-1.3); CALCIUM 8.1 mg/dL (8.5-10.1); CARBON DIOXIDE 25.4 mmol/L (21.0-32.0); POTASSIUM - SERUM 3.9 mmol/L (3.5-5.1); PROTEIN - SERUM 5.7 g/dL (6.4-8.2)
[2018-12-27 08:00] VITALS: BP 179/66
[2018-12-27 12:12] VITALS: BP 182/61
[2018-12-27 16:24] VITALS: BP 183/58
[2018-12-27 20:00] VITALS: BP 103/58; BP 188/42
--- NOTE | 2018-12-27 20:10 | NUR ---
EVENING ROUNDS COMPLETED. PT APPEARS LETHARGIC ON INITIAL ASSESSMENT,EASY TO AROUSE. PT PIV INFILTRATED. REMOVED IV, APPLIED 2X2 GAUZE AND TAPED. RESTART A NEW PIV ON PT'S LAC 22G X1 STICK. PT TOLERATE WELL. PT CURRENLTY ON 4L O2 HIGHFLOW. TELEMTRY ON, BRUISES BILAT ARM AND REDDENED BUTTOCKS. PT CURRENTLY SITTING UP IN BED. DENIES ANY FURTHER NEEDS AT THIS TIME. WILL CPOC.
--- NOTE | 2018-12-28 02:32 | NUR ---
ATTEMPTED TO GET AN EKG ON PT. PT REFUSED EKG. STATES "I TOLD MY DOCTOR I DON'T WANT NO EKG, I WANT Y'ALL TO LEAVE ME ALONE, I DON'T WANT NOBODY SNOOPING AROUNDS." PT CURRENTLY ON BIPAP @ THIS TIME. WILL CTM.
[2018-12-28 04:00] VITALS: BP 118/60
[2018-12-28 06:31] LABS: BASOPHILS 0.1 % (0-2); EOSINOPHILS 2.4 % (0-7); HEMOGLOBIN 8.2 g/dL (13.5-17.5); IMMATURE GRANULOCYTES 0.1 % (0-5); LYMPHOCYTES 8.3 % (15-50); MCH 28.3 pg (26.0-34.0); MCHC 32.8 g/dL (31.0-37.0); MCV 86.2 fL (80.0-100.0); MEAN PLATELET VOLUME 11.5 fL (7.4-10.4); MONOCYTES 14.2 % (2-11); NEUTROPHILS 74.9 % (40-80); PLATELET COUNT 218 10x3/uL (130-400); RDW 15.4 % (11.5-14.5); WBC 7.6 10x3/uL (4.8-10.8)
--- NOTE | 2018-12-28 06:41 | NUR ---
PT REFUSED TO GET HIS FSBS CHECKED. STATES "I DON'T WANNA BE DISTURBED RIGHT NOW." PT ALSO REFUSED HIS AM SYNTHROID. WILL TRANFER REPORT TO INCOMING NURSE.
[2018-12-28 06:49] LABS: ALBUMIN 2.6 g/dL (3.4-5.0); ANION GAP 13.5 mmol/L (8-16); BILIRUBIN - TOTAL 0.32 mg/dL (0.2-1.3); CALCIUM 8.9 mg/dL (8.5-10.1); CARBON DIOXIDE 25.4 mmol/L (21.0-32.0); CREATININE - SERUM 4.2 mg/dL (0.6-1.3); POTASSIUM - SERUM 3.9 mmol/L (3.5-5.1); PROTEIN - SERUM 5.8 g/dL (6.4-8.2)
[2018-12-28 08:15] VITALS: BP 174/35
--- NOTE | 2018-12-28 08:20 | MORECARE ---
CASE MANAGEMENT DISCHARGE SUMMARY PATIENT: ABBY PHILLIPS UNIT: [id number] ADM DATE: 12/21/18 AGE: 73 : [birth year] SEX: M ROOM/BED: D.3119 AUTHOR: BYRON,DOC PHYSICIAN: REFERRING PHYSICIAN: THANH ALEJANDRO MD DATE OF SERVICE: 12/28/18 Discharge Plan Patient Name: ABBY PIHLLIPS Facility: [facility]:[place] : 1945 Planned Disposition: Home Anticipated Discharge Date: Discharge Date: Expected LOS: Initial Reviewer: [email or web address] Initial Review Date: 12/21/2018 Generated: 12/28/18 9:20 am DCP- Discharge Planning Updated by [email or web address]: Lizzie Basurto on 12/24/18 10:[address] CM VISITED W/ THE PATIENT AT THE BEDSIDE. HE STATES HE IS FEELING WORSE TODAY. PATIENT IS NPO FOR SURGERY FOR DIALYSIS ACCESS. HE STATED HE WAS COLD. CM PROVIDED A WARM BLANKET. HE STATED HE HAD ABDOMINAL PAIN AND "WAS HURTING ALL OVER." CM ADVISED HIS PRIMARY NURSE. THE PATIENT PLANS TO RETURN TO HOME AT DISCHARGE. LIVES WITH HIS SISTER. IS WILLING TO CONSIDER HOME HEALTH IF NEEDED. DID NOT GO INTO A LONG EXPLANATION HE IS UNCOMFORTABLE. HAS DME NOTED BUT CANNOT RECALL THE PROVIDER'S NAME. THE DME COMPANY IS LOCATED IN [place]. PHARMACY- [facility] IN [place] PCP IS LOCATED IN [facility]. CM WILL F/U WHEN PATIENT IS MORE COMFORTABLE. DCPIA - Discharge Planning Initial Assessment Updated by [email or web address]: Lizzie Basurto on 12/24/18 10:58 am * Is the patient Alert and Oriented? Yes * How many steps to enter\\exit or inside your home? NONE * PCP [facility] SEAN FRIEDMAN * Pharmacy [facility] IN [place], [place] * Preadmission Environment Home with Family * ADLs Independent * Equipment BIPAP Cane Oxygen Wheelchair * Other Equipment OXYGEN STATIONARY UNIT AND PORTABLE, CANE, WHEELCHAIR, SHOWER CHAIR * List name and contact numbers for known caregivers / representatives who currently or will assist patient after discharge: PARRISH GORDON- [facility]- [phone] * Verbal permission to speak to the caregivers and representatives has been obtained from the patient. No * Community resources currently utilized None * Please name any agencies selected above. N/A * Additional services required to return to the preadmission environment? Yes * Can the patient safely return to the preadmission environment? Yes * Has this patient been hospitalized within the prior 30 days at any hospital? No Last DP export: 12/24/18 4:17 p Patient Name: ABBY PHILLIPS Page [phone] at 0820 All edits/amendments must be made on the electronic document DICTATION DATE: 12/28/18818 PRODUCTION ADMINISTRATIVE ASSISTANT: APRIL 12/28/18818 RPT#: [id number] DC DATE: STATUS: ADM IN [facility] [address] [place] [address] END OF REPORT
[2018-12-28 11:48] VITALS: BP 167/37
--- NOTE | 2018-12-28 13:00 | NUR ---
TAKEN TO PROCEDURE VIA BED.
--- NOTE | 2018-12-28 14:00 | NUR ---
ARRIVE BACK TO ROOM VIA BED. VITALS STABLE AND DOCUMENTED POST OP VITALS. SEDATED, AROUSES EASILY TO STIMULI. FAMILY AT BEDSIDE. RESERVE LT ARM SIGNS PLACED ON DOOR AND ABOVE HOB. LT ARM DRESSING C/D/I. LT ARM IN SLING. CONTINUE PLAN OF CARE AND SAFETY PRECAUTIONS.
--- NOTE | 2018-12-28 19:30 | NUR ---
PT ASLEEP. AROUSES TO VERBAL STIMULI, DENIES ANY NEEDS. NO S/S OF DISTRESS. PT BEDLOW AND CALL LIGHT IN REACH. NAME AND DATE PLACED ON BOARD. 4L O2 NC. PT WILL CALL FOR ASSIST WHEN NEEDED. WILL CPOC
[2018-12-28 20:00] VITALS: BP 195/74
--- NOTE | 2018-12-29 | NUR ---
PT RIGHT HAND IV FOUND IN BED WITH PATENT. ONE ATTEMPT UNSUCCESSFUL. WILL CONTINUE TO ATTEMPT TO OBTAIN IV ACCESS. IV FOUND AROUND 2324 IN BED WITH CATH INTACT
--- NOTE | 2018-12-29 02:13 | NUR ---
TRAMADOL GIVEN FOR LEFT ARM PAIN
--- NOTE | 2018-12-29 02:51 | NUR ---
PT REPOSITIONED TO RIGHT SIDE. NURSE PLACED MOISTURE BARRIER ON BUTTOCK AND COMPLETED WALSH CARE, FIXED STAT LOCK SO IT IS CORRECT. MOISTURE BARRIER PLACED IN GROIN AND ON SCROTUM AND PENIS. PT DRANK 240 ML OF APPLE JUICE. NON ADHESIVE BARRIER AND A BANDAID PLACED ON BRIDGE OF NOSE DUE TO BREAKDOWN FROM BIPAP. PT WILL CALL FOR ASSIST WHEN NEEDED. WILL CPOC
[2018-12-29 05:10] LABS: BASOPHILS 0 % (0-2); HEMATOCRIT 23.1 % (42.0-54.0); HEMOGLOBIN 7.6 g/dL (13.5-17.5); IMMATURE GRANULOCYTES 0.3 % (0-5); LYMPHOCYTES 6.6 % (15-50); MCHC 32.9 g/dL (31.0-37.0); MCV 85.2 fL (80.0-100.0); MEAN PLATELET VOLUME 11.1 fL (7.4-10.4); MONOCYTES 15.2 % (2-11); NEUTROPHILS 76.9 % (40-80); PLATELET COUNT 206 10x3/uL (130-400); RBC 2.71 10x6/uL (4.20-6.10); RDW 15.6 % (11.5-14.5); WBC 7.7 10x3/uL (4.8-10.8)
[2018-12-29 05:48] LABS: ALBUMIN 2.4 g/dL (3.4-5.0); ANION GAP 13.1 mmol/L (8-16); BILIRUBIN - TOTAL 0.28 mg/dL (0.2-1.3); CALCIUM 8.3 mg/dL (8.5-10.1); CREATININE - SERUM 4.4 mg/dL (0.6-1.3); POTASSIUM - SERUM 4.1 mmol/L (3.5-5.1); PROTEIN - SERUM 5.6 g/dL (6.4-8.2)
--- NOTE | 2018-12-29 07:21 | NUR ---
PT FSBS IS 168 2 UNITS GIVEN. PT STILL DOESNT HAVE AN IV ACCESS. WILL PASS IN REPORT. PT TAKEN OFF BIPAP AND GIVEN MORNING MEDICAITONS. PT DENIES ANY NEEDS. WILL CPOC
[2018-12-29 11:47] VITALS: BP 164/56
[2018-12-29 11:49] VITALS: BP 176/52
--- NOTE | 2018-12-29 14:27 | NUR ---
Nutrition follow-up: Diet: Renal ADA with po intake 75-100% of most meals Pt has been NPO for several meals recently Labs reviewed Wt: 162# charted today??? Pt has not lose 74# overnight Please reweigh pt RDN following.
--- NOTE | 2018-12-29 15:26 | NUR ---
ALERT AND ORIENTED X4. PHYSICAL THERAPY ASSIST BACK TO BED FROM CHAIR. INITIATE PRBC TRANSFUSION. RESITE IV RT FA 20G SUCCESSFUL X1 ATTEMPT. INITIAL RATE AT 75ml/HR. BP-183/74, HR-68 SINUS RHYTHM, O2-100% WITH 4L NC, T-97.5. REMAIN IN ROOM FOR FIRST 15mins TO MONITOR FRO REACTIONS. CONTINUE PLAN OF CARE AND SAFETY PRECAUTIONS.
--- NOTE | 2018-12-29 15:40 | NUR ---
ALERT AND ORIENTED X4. SITTING UP IN BED. BP-176/67, HR-70 SINUS RHYTHM, R-16, O2-100% WITH 4L NC, T-98.3. INCREASE TRANSFUSION RATE TO 125mL/HR. NO SIGNS OF ADVERSE REACTION. CONTINUE TO MONITOR. CONTINUE PLAN OF CARE AND SAFETY PRECAUTIONS.
--- NOTE | 2018-12-29 18:16 | NUR ---
ALERT AND ORIENTED X4. LAYING IN BED. DC WALSH BULB INTACT. INITIATE RAJ CARE. SCROTUM AND HEAD OF PENIS SWOLLEN. ENCOURAGE TO INFORM NURSE AFTER FIRST URINATION. PRBC TRANSFUSION COMPLETE. BP-186/76, HR-75 SINUS RHYTHM, 02-100% WITH 4L NC, T-97. DENIES ANY OTHER NEEDS. CONTINUE PLAN OF CARE AND SAFETY PRECAUTIONS.
[2018-12-29 18:36] VITALS: BP 164/55
[2018-12-29 20:00] VITALS: BP 204/72
--- NOTE | 2018-12-29 20:00 | NUR ---
PT ALERT AND ORIENTED. URINATED SMALL AMOUNT INTO URINAL. ABDOMEN DISTENDED WITH ACTIVE BOWEL SOUNDS IN EACH FOUR QUADRANTS. LUNG DIMINSHED IN BILATERAL LOWER LOBES. PT WEARING 4L NC. SCROTOM SWOLLEN WITH REDNESS TO AREA. PT VERBALZES FLUID RESTRICTION. CALL LIGHT IN HAND. USES WHEN IN NEED.
--- NOTE | 2018-12-30 00:25 | NUR ---
PT BLOOD PRESSURE 204/76 ELECRONIC. MANUAL PRESENTS WITH 190/90. PT HAS HAD 0.1 CLONODINE PRN AND NO IMPROVEMENT IN RESULTS SO FAR. CALL TO RENAL PREPARATION PLANT REPAIRERDanial YANEZ. INSTRUCTED TO GIVE ADDITIONAL DOSE OF 0.1 CLONIDINE AT THIS TIME. ADMINISTERED ORDERED. PT TOLERATED WELL. HAS CALL LIGHT IN REACH.
--- NOTE | 2018-12-30 02:42 | NUR ---
BLOOD PRESSURE RECHECKED AND IS 169/88.
[2018-12-30 04:00] VITALS: BP 169/88
--- NOTE | 2018-12-30 04:04 | NUR ---
I have reviewed this patient and I concur with the Shift Assessment completed by the Licensed Practical Nurse today this shift.
[2018-12-30 06:48] LABS: BASOPHILS 0.1 % (0-2); HEMATOCRIT 25.3 % (42.0-54.0); HEMOGLOBIN 8.3 g/dL (13.5-17.5); IMMATURE GRANULOCYTES 0.1 % (0-5); MCH 27.9 pg (26.0-34.0); MCHC 32.8 g/dL (31.0-37.0); MCV 85.2 fL (80.0-100.0); MEAN PLATELET VOLUME 10.9 fL (7.4-10.4); MONOCYTES 14.8 % (2-11); PLATELET COUNT 213 10x3/uL (130-400); RBC 2.97 10x6/uL (4.20-6.10); RDW 15.6 % (11.5-14.5); WBC 7.1 10x3/uL (4.8-10.8)
[2018-12-30 07:14] LABS: ALBUMIN 2.5 g/dL (3.4-5.0); ANION GAP 13.1 mmol/L (8-16); BILIRUBIN - TOTAL 0.29 mg/dL (0.2-1.3); CALCIUM 8.5 mg/dL (8.5-10.1); CARBON DIOXIDE 25.8 mmol/L (21.0-32.0); CREATININE - SERUM 4.6 mg/dL (0.6-1.3); POTASSIUM - SERUM 3.9 mmol/L (3.5-5.1); PROTEIN - SERUM 5.8 g/dL (6.4-8.2)
[2018-12-30 08:10] VITALS: BP 138/86
[2018-12-30 11:37] VITALS: BP 121/74
--- NOTE | 2018-12-30 12:03 | NUR ---
Rehab Note- Acute Inpatient Rehab prescreen order received. THe patient has [facility] insurance and will require a PreAuth prior to an inpatient acute rehab stay. Will need an OT Eval- spoke with HARSHAL Lozada. Will begin the PreAuth process. Will follow at this time. THank you for this referral! Shauna Kulkarni RN CLinical Liaison, [facility] Re[facility]
[2018-12-30 14:38] VITALS: BP 132/76
--- NOTE | 2018-12-30 15:06 | NUR ---
I have reviewed this patient and I concur with the Shift Assessment completed by the Licensed Practical Nurse today this shift.
--- NOTE | 2018-12-30 15:36 | NUR ---
OT NOTE: PT COMPLETED BED MOB USING RUE WITH MOD A. PT COMPLETED HYGIENE TASKS WITH RUE WITH MIN/MOD A. THANK YOU, DEISY COTTON
--- NOTE | 2018-12-30 16:26 | MORECARE ---
CASE MANAGEMENT DISCHARGE SUMMARY PATIENT: ABBY PHILLIPS UNIT: [id number] ADM DATE: 12/21/18 AGE: 73 : [birth year] SEX: M ROOM/BED: D.6890 AUTHOR: BYRON,DOC PHYSICIAN: REFERRING PHYSICIAN: THANH ALEJANDRO MD DATE OF SERVICE: 12/30/18 Discharge Plan Patient Name: ABBY PHILLIPS Facility: [facility]:[place] : 1945 Planned Disposition: Home with Home Health Anticipated Discharge Date: 12/31/18 Discharge Date: Expected LOS: 10 Initial Reviewer: [email or web address] Initial Review Date: 12/21/2018 Generated: 12/30/18 5:26 pm DCP- Discharge Planning Updated by [email or web address]: Lizzie Basurto on 12/24/18 10:[address] CM VISITED W/ THE PATIENT AT THE BEDSIDE. HE STATES HE IS FEELING WORSE TODAY. PATIENT IS NPO FOR SURGERY FOR DIALYSIS ACCESS. HE STATED HE WAS COLD. CM PROVIDED A WARM BLANKET. HE STATED HE HAD ABDOMINAL PAIN AND "WAS HURTING ALL OVER." CM ADVISED HIS PRIMARY NURSE. THE PATIENT PLANS TO RETURN TO HOME AT DISCHARGE. LIVES WITH HIS SISTER. IS WILLING TO CONSIDER HOME HEALTH IF NEEDED. DID NOT GO INTO A LONG EXPLANATION HE IS UNCOMFORTABLE. HAS DME NOTED BUT CANNOT RECALL THE PROVIDER'S NAME. THE DME COMPANY IS LOCATED IN [place]. PHARMACY- [facility] IN [place] PCP IS LOCATED IN [facility]. CM WILL F/U WHEN PATIENT IS MORE COMFORTABLE. DCPIA - Discharge Planning Initial Assessment Updated by [id number]: Lizzie Basurto on 12/24/18 10:58 am * Is the patient Alert and Oriented? Yes * How many steps to enter\\exit or inside your home? NONE * PCP [facility] SEAN FRIDEMAN * Pharmacy [facility] IN [place], [place] * Preadmission Environment Home with Family * ADLs Independent * Equipment BIPAP Cane Oxygen Wheelchair * Other Equipment OXYGEN STATIONARY UNIT AND PORTABLE, CANE, WHEELCHAIR, SHOWER CHAIR * List name and contact numbers for known caregivers / representatives who currently or will assist patient after discharge: PARRISH GORDON- [facility]- [phone] * Verbal permission to speak to the caregivers and representatives has been obtained from the patient. No * Community resources currently utilized None * Please name any agencies selected above. N/A * Additional services required to return to the preadmission environment? Yes * Can the patient safely return to the preadmission environment? Yes * Has this patient been hospitalized within the prior 30 days at any hospital? No Coverage Notice Reviewer: [id number] Garcia Notice Issued Date-Time: 12/30/2018 15:55 Notice Type: Patient Choice Letter Notice Delivered To: Patient Relationship to Patient: Science Tutor Name: Delivery Method: HAND - Hand Delivered Anusha Days: Prior Verbal Notification: Recipient Understood Notice: Yes Recipient Signature: Yes Med Rec Note Co-signed by Attending: Coverage Notice Comment: NO HOME HEALTH PROVIDER CHOICE OUT OF [place] Reviewer: [email or web address] Skylar Garcia Notice Issued Date-Time: 12/30/2018 15:55 Notice Type: IM Discharge Notice Notice Delivered To: Patient Relationship to Patient: Science Tutor Name: Delivery Method: HAND - Hand Delivered Anusha Days: Prior Verbal Notification: Recipient Understood Notice: Yes Recipient Signature: Yes Med Rec Note Co-signed by Attending: Coverage Notice Comment: Last DP export: 12/28/18 7:20 a Patient Name: ABBY PHILLIPS Page [id number] at 1626 All edits/amendments must be made on the electronic document DICTATION DATE: 12/30/181624 BUSINESS APPLICATIONS MANAGER: APRIL 12/30/18 162 RPT#: [id number] DC DATE: STATUS: ADM IN [facility] [address] [place] [address] END OF REPORT
--- NOTE | 2018-12-30 16:34 | MORECARE ---
CASE MANAGEMENT DISCHARGE SUMMARY PATIENT: ABBY PHILLIPS UNIT: [id number] ADM DATE: 12/21/18 AGE: 73 : [birth year] SEX: M ROOM/BED: D.7299 AUTHOR: BYRON,DOC PHYSICIAN: REFERRING PHYSICIAN: THANH ALEJANDRO MD DATE OF SERVICE: 12/30/18 Discharge Plan Patient Name: ABBY PHILLIPS Facility: [facility]:[place] : 1945 Planned Disposition: Home with Home Health Anticipated Discharge Date: 12/31/18 Discharge Date: Expected LOS: 10 Initial Reviewer: [email or web address] Initial Review Date: 12/21/2018 Generated: 12/30/18 5:34 pm Comments DCP- Discharge Planning Updated by [email or web address]: Brandin Garcia on 12/30/18 3:[address] Patient Name: ABBY PHILLIPS Encounter No: [id number] : 1945 Primary Insurance: [facility] MEDICARE SOLUTIONS Anticipated DC Date: 12-31-2018 Planned Disposition: Home with Home Health External Planned Provider: TO BE DETERMINED DCP follow-up note: CM MET WITH PT IN ROOM TO DISCUSS DISCHARGE NEEDS AND PLANNING. CM DISCUSSED AVAILABILITY OF HOME HEALTH, REHAB SERVICES AND MEDICAL EQUIPMENT. PT DENIES REHAB NEED, STATES HE WANTS HOME HEALTH FOR HOME PHYSICAL THERAPY. PT STATES HE HAS NO PREFERENCE ON PROVIDER FROM [place] FOR HOME HEALTH. CHOICE SIGNED. PT PLANS TO DISCHARGE HOME WITH ASSISTANCE OF SISTER. PT'S SISTER TO TRANSPORT HOME AT DISCHARGE. IMPORTANT MESSAGE FROM MEDICARE PROVIDED AND EXPLAINED. CM TO FOLLOW AND ASSIST NEEDED. PT PLANS TO DISCHARGE HOME WITH SISTER. PT WANTS HOME HEALTH FOR PHYSICAL THERAPY. CM TO ARRANGE WITH NO PROVIDER PREFERENCE WITH PHYSICIAN AGREEMENT AND ORDER. Brandin Garcia, CASE MANAGEMENT DCP- Discharge Planning Updated by [id number]: Lizzie Basurto on 12/24/18 10:[address] CM VISITED W/ THE PATIENT AT THE BEDSIDE. HE STATES HE IS FEELING WORSE TODAY. PATIENT IS NPO FOR SURGERY FOR DIALYSIS ACCESS. HE STATED HE WAS COLD. CM PROVIDED A WARM BLANKET. HE STATED HE HAD ABDOMINAL PAIN AND "WAS HURTING ALL OVER." CM ADVISED HIS PRIMARY NURSE. THE PATIENT PLANS TO RETURN TO HOME AT DISCHARGE. LIVES WITH HIS SISTER. IS WILLING TO CONSIDER HOME HEALTH IF NEEDED. DID NOT GO INTO A LONG EXPLANATION HE IS UNCOMFORTABLE. HAS DME NOTED BUT CANNOT RECALL THE PROVIDER'S NAME. THE DME COMPANY IS LOCATED IN [place]. PHARMACY- [facility] IN [place] PCP IS LOCATED IN [facility]. CM WILL F/U WHEN PATIENT IS MORE COMFORTABLE. DCPIA - Discharge Planning Initial Assessment Updated by [id number]: Lizzie Basurto on 12/24/18 10:58 am * Is the patient Alert and Oriented? Yes * How many steps to enter\\exit or inside your home? NONE * PCP [facility] SEAN FRIEDMAN * Pharmacy [facility] IN [place], [place] * Preadmission Environment Home with Family * ADLs Independent * Equipment BIPAP Cane Oxygen Wheelchair * Other Equipment OXYGEN STATIONARY UNIT AND PORTABLE, CANE, WHEELCHAIR, SHOWER CHAIR * List name and contact numbers for known caregivers / representatives who currently or will assist patient after discharge: PARRISH GORDON- [facility] [phone] * Verbal permission to speak to the caregivers and representatives has been obtained from the patient. No * Community resources currently utilized None * Please name any agencies selected above. N/A * Additional services required to return to the preadmission environment? Yes * Can the patient safely return to the preadmission environment? Yes * Has this patient been hospitalized within the prior 30 days at any hospital? No Coverage Notice Reviewer: [id number] Garcia Notice Issued Date-Time: 12/30/2018 15:55 Notice Type: Patient Choice Letter Notice Delivered To: Patient Relationship to Patient: Art Editor Name: Delivery Method: HAND - Hand Delivered Anusha Days: Prior Verbal Notification: Recipient Understood Notice: Yes Recipient Signature: Yes Med Rec Note Co-signed by Attending: Coverage Notice Comment: NO HOME HEALTH PROVIDER CHOICE OUT OF [place] Reviewer: [id number] Skylar Garcia Notice Issued Date-Time: 12/30/2018 15:55 Notice Type: IM Discharge Notice Notice Delivered To: Patient Relationship to Patient: Art Editor Name: Delivery Method: HAND - Hand Delivered Anusha Days: Prior Verbal Notification: Recipient Understood Notice: Yes Recipient Signature: Yes Med Rec Note Co-signed by Attending: Coverage Notice Comment: Last DP export: 12/30/18 3:26 p Patient Name: ABBY PHILLIPS Page [id number] at 1634 All edits/amendments must be made on the electronic document DICTATION DATE: 12/30/181633 MARKETING PRODUCTION MANAGER: APRIL 12/30/18 163 RPT#: [id number] DC DATE: STATUS: ADM IN [facility] [address] [place] [address] END OF REPORT
[2018-12-30 20:00] VITALS: BP 198/66
[2018-12-31] VITALS: BP 213/65
--- NOTE | 2018-12-31 00:05 | NUR ---
PATIENT BP 213/65. 0.1MG OF CLONIDINE GIVEN. WILL CHECK BLOOD PRESSURE AGAIN IN 1 HOUR.
--- NOTE | 2018-12-31 01:00 | NUR ---
PATIENT'S BLOOD PRESSURE 190/58. PATIENT STATES HE FEELS FINE. NO PAIN. WILL CONTINUE TO MONITOR BLOOD PRESSURE.
--- NOTE | 2018-12-31 03:27 | NUR ---
PATIENT LAYING IN BED. EYES CLOSED, CHEST RISING AND FALLING. NO DISTRESS NOTED.
[2018-12-31 04:00] VITALS: BP 198/56
[2018-12-31 06:37] LABS: BASOPHILS 0 % (0-2); EOSINOPHILS 5.2 % (0-7); HEMATOCRIT 25.2 % (42.0-54.0); HEMOGLOBIN 8.2 g/dL (13.5-17.5); IMMATURE GRANULOCYTES 0.5 % (0-5); LYMPHOCYTES 10.3 % (15-50); MCH 27.8 pg (26.0-34.0); MCHC 32.5 g/dL (31.0-37.0); MCV 85.4 fL (80.0-100.0); MEAN PLATELET VOLUME 11.5 fL (7.4-10.4); MONOCYTES 15.1 % (2-11); NEUTROPHILS 68.9 % (40-80); PLATELET COUNT 228 10x3/uL (130-400); RBC 2.95 10x6/uL (4.20-6.10); RDW 15.6 % (11.5-14.5); WBC 6.3 10x3/uL (4.8-10.8)
[2018-12-31 06:58] LABS: ALBUMIN 2.2 g/dL (3.4-5.0); ANION GAP 13.6 mmol/L (8-16); BILIRUBIN - TOTAL 0.21 mg/dL (0.2-1.3); CALCIUM 8.2 mg/dL (8.5-10.1); CARBON DIOXIDE 25.1 mmol/L (21.0-32.0); CREATININE - SERUM 4.4 mg/dL (0.6-1.3); POTASSIUM - SERUM 3.7 mmol/L (3.5-5.1); PROTEIN - SERUM 5.5 g/dL (6.4-8.2)
--- NOTE | 2018-12-31 07:32 | NUR ---
REPORT RECEIVED. WILL CONTINUE WITH POC. PT CURRENTLY LYING SUPINE. CALL LIGHT W/I REACH. PT IS RESTING AT THE MOMENT. RR EVEN AND UNLABORED ON 4L 02. NS INFUSING @KVO VIA R.FOR PIV. PT DENIES ANY NEEDS AT THIS TIME. NO S/S OF DISTRESS NOTED. WILL CTM.
[2018-12-31 08:18] VITALS: BP 128/78
--- NOTE | 2018-12-31 09:25 | NUR ---
PT YELLING OUT INTO THE [place]. ASKED THE PT WHAT HE NEEDED AND HE SAID "I CAN YELL OUT IF I WANT TO, PEOPLE ARE LAUGHING SO IM GONNA YELL." WHEN ASKED THE PATIENT IF HE NEEDED ANYTHING HE SAID "IM ITCHING BUT IM NOT GONNA TAKE ANYTHING YOU GIVE ME." PT LYING SUPINE. CALL LIGHT W/I REACH. PT REFUSES HELP.
--- NOTE | 2018-12-31 09:37 | NUR ---
PT IS REFUSING ALL MEDICATIONS STATING "IM NOT TAKING ANYTHING. YOU DONT HAVE ANYTHING TO GIVE ME THATS GOING TO MAKE ME FEEL ANY BETTER THAN I DO." INSPITE OF INSTRUCTING PT ON THE IMPORTANCE OF TAKING MEDICATIONS, HE CONTINUED TO REFUSE.
--- NOTE | 2018-12-31 10:50 | NUR ---
OT NOTE: PT ANGRY AND AGITATED THIS AM. MOD ASSIST FOR BED MOB; PT WITH CONTINUAL C/O PAIN SECONDARY TO SWELLING OF SCROTUM. ASSIST WITH EOB SITTING DUE TO SAME ISSUE. TRANSFER TO CHAIR WITH MOD ASSIST. SET UP WITH FEEDING BUT PT REFUSED FOOD; ONLY AGREEABLE TO DRINK MILK AND JUICE. PATRICK GANDHI, OTR/L
[2018-12-31] MEDS ORDERED: LOPRESSOR25 MG PO (11:28)
[2018-12-31] MEDS ORDERED: REQUIP0.25 MG PO (11:29)
[2018-12-31] MEDS ORDERED: BUMEX2 MG PO (11:30)
[2018-12-31 11:51] VITALS: BP 152/72
--- NOTE | 2018-12-31 15:16 | OP ---
PATIENT NAME: ABBY PHILLIPS MEDICAL RECORD: [id number] :[birth year] LOCATION:D. D.2137 ADMISSION DATE:12/21/18 SURGEON: VERÓNICA RAE MD DATE OF OPERATION: 12/28/2018 PREOPERATIVE DIAGNOSIS: Chronic kidney disease V. POSTOPERATIVE DIAGNOSIS: Chronic kidney disease V. OPERATION PERFORMED: Creation of a left brachial artery to cephalic vein arteriovenous fistula. SURGEON: Verónica Rae MD ANESTHESIA: Regional nerve block plus IV sedation per ROGUER. REFERRING PHYSICIAN: Olman Byrnes MD PREOPERATIVE NOTE: Mr. Phillips is a 73-year-old white male diabetic, hypertensive patient with chronic renal insufficiency, who I had seen previously in my office and scheduled for an AV fistula creation to be done today. In the meantime, however, he was admitted to the hospital with an exacerbation of COPD and congestive heart failure and a worsening in his renal function. He is narrowly avoided insertion of a tunneled dialysis catheter. He is brought to the operating room today, still an inpatient to have his brachiocephalic AV fistula constructed. PROCEDURE IN DETAIL: After a left upper extremity nerve block and the patient was taken to the operating room and sedated then prepped and draped in a sterile manner. A Lutz drain was used as a proximal venous tourniquet and topical nitroglycerin ointment applied to the arm and forearm. Duplex ultrasound examination was performed and this revealed a large, very suitable cephalic vein in the upper arm with a large median cubital vein and atherosclerotic large brachial artery and a smaller vein at the wrist, which I did not think. At this point, we should risk a nonmaturing fistula, so I opted for the brachiocephalic. A transverse antecubital incision was made and the median cubital vein mobilized, it was about a centimeter in diameter and it is in mid portion of the antecubital space and tapered above and below that. Distally, there was a bifurcation where the distal vessels were ligated and the median cubital vein transected and bevelled. It was flushed with heparinized saline, treated with topical papaverine and occluded with an atraumatic vascular clamp proximally. The artery was exposed and controlled with doubly looped Silastic tapes proximally and distally and small branches divided between clips and also with electrocautery. The Silastic loops proved unable to occlude the artery and in addition of these during the procedure, vascular clamps were used. The artery was occluded and opened, flushed with heparinized saline proximally and distally and the end of the vein was sutured to the side of the artery with running 7-0 Prolene. The suture line was treated with EnSeal and when the occluding loops and clamps were released, flow was established in the artery and in the fistula and the suture line was hemostatic. There was good pulsatile Doppler flow in the median cubital and cephalic veins and good pulsatile flow was restored in the distal brachial artery. The wound was irrigated with Ancef and gentamicin solution. Hemostasis assured again with electrocautery and the wound closed with interrupted inverted 3-0 Vicryl and running intracuticular 4-0 Monocryl and Dermabond glue. It was dressed with Maxorb Ag, Tegaderm, and Cavilon skin prep OPERATIVE REPORT [id number] ABBY PHILLIPS and the patient was then awakened from his anesthetic, was taken to the recovery room. Blood loss during the operation was about 50 cc, was unreplaced. Sponges, instruments, and needles were accounted for. No drain was used and no surgical specimen submitted for histopathology. PLAN: The patient will go home when okay with nephrology. I will plan to see him back in my office in 2 weeks. I fully expect this fistula will mature, though I do not know if the patient may not require placement of a tunneled dialysis catheter before that. TRANSINT:[id number] Voice Confirmation ID: [id number] DOCUMENT ID: [id number] VERÓNICA RAE MD at 1516 CC: OLMAN BYRNES [id number] DICTATION DATE: 12/28/18 1458 HOME CARE MANAGER: 12/28/18 1545 ADM IN [facility] [address] [place] [address]
[2018-12-31 15:22] VITALS: BP 146/70
--- NOTE | 2018-12-31 19:34 | NUR ---
DONNED BILEVEL 06/19/30 % JAMEE APPLICATION WELL
[2018-12-31 20:00] VITALS: BP 203/65
--- NOTE | 2018-12-31 20:30 | NUR ---
EVENING ROUNDS COMPLETED. VSS, AA0X2, NO S/S OF RESP DISTRESS. RR EVEN AND UNLABORED. PT C/O OF RESTLESS LEG. REQUIP GIVEN ALONGSIDE HS MEDS. FSBS 191, 2 UNITS OF HUMALOG GIVEN. PT CURRENTLY ON 4L O2. ASSIST PT WITH HIS URINAL. PT VOICED THANKS. PT DENIES ANY FURTHER NEEDS AT THIS TIME. WILL CPOC. CL WITHIN REACH, BED IN LOW, SR UP X2.
[2019-01-01] VITALS: BP 156/63
--- NOTE | 2019-01-01 00:22 | NUR ---
PT C/O PAIN IN LEG, ABD. PO 50MG PRN ULTRAM GIVEN. PT CURRENTLY ON BIPAP. NO S/S OF DISTRESS. WILL CTM. CL IN REACH.
[2019-01-01 04:00] VITALS: BP 121/73
--- NOTE | 2019-01-01 05:12 | NUR ---
PT C/O HEADACHE AND BACK PAIN. TYLENOL PO 325MG GIVEN AT THIS TIME. PT INSIST THAT HE WANTS TO GET UP IN BED TO SIT IN CHAIR. ASSIST PT UP TO CHAIR. 02 4L. WILL CTM.
--- NOTE | 2019-01-01 07:14 | NUR ---
PT AWAKE AND ORIENTED SITTING IN CHAIR BY BED, ASSISTED HARJIT KILGORE IN MOVING PT BACK TO BED. PT WAS X2 ASSIST, BUT ABLE TO WALK FAIRLY WELL. PT WAS VERY CRANKY, STATES HE WANTS TO MAKE SURE HE SPEAKS TO CASE MANAGMENT TODAY. WILL ACCOMIDATE. NO OTHER COMPLAINTS/CONCERNS THIS A.M. REQUESTED I BOTHER HIM LITTLE POSSIBLE TODAY. WILL TRY. CL IN REACH, SRX2, BED ALARM ON.
[2019-01-01 09:12] VITALS: BP 225/76
[2019-01-01 10:10] LABS: BASOPHILS 0.1 % (0-2); EOSINOPHILS 4.4 % (0-7); HEMATOCRIT 26.2 % (42.0-54.0); HEMOGLOBIN 8.6 g/dL (13.5-17.5); IMMATURE GRANULOCYTES 0.1 % (0-5); LYMPHOCYTES 12.5 % (15-50); MCH 28.1 pg (26.0-34.0); MCHC 32.8 g/dL (31.0-37.0); MCV 85.6 fL (80.0-100.0); MEAN PLATELET VOLUME 10.8 fL (7.4-10.4); MONOCYTES 12.5 % (2-11); NEUTROPHILS 70.4 % (40-80); PLATELET COUNT 251 10x3/uL (130-400); RBC 3.06 10x6/uL (4.20-6.10); RDW 15.3 % (11.5-14.5); WBC 6.8 10x3/uL (4.8-10.8)
[2019-01-01 10:16] LABS: ANION GAP 14.9 mmol/L (8-16); CALCIUM 8.8 mg/dL (8.5-10.1); CARBON DIOXIDE 26.7 mmol/L (21.0-32.0); CREATININE - SERUM 4.7 mg/dL (0.6-1.3); POTASSIUM - SERUM 3.6 mmol/L (3.5-5.1)
[2019-01-01] MEDS ORDERED: CEFUROXIME500 MG PO (10:43)
--- NOTE | 2019-01-01 10:43 | NUR ---
I have reviewed this patient and I concur with the Shift Assessment completed by the Licensed Practical Nurse today this shift.
--- NOTE | 2019-01-01 12:47 | MORECARE ---
CASE MANAGEMENT DISCHARGE SUMMARY PATIENT: ABBY PHILLIPS UNIT: [id number] ADM DATE: 12/21/18 AGE: 73 : 47 SEX: M ROOM/BED: D.7752 AUTHOR: BYRONDOC PHYSICIAN: REFERRING PHYSICIAN: THANH ALEJANDRO MD DATE OF SERVICE: 01/01/19 Discharge Plan Patient Name: ABBY PHILLIPS Facility: [facility]:[place] : 1945 Planned Disposition: Home with Home Health Anticipated Discharge Date: 12/31/18 Discharge Date: Expected LOS: 10 Initial Reviewer: [email or web address] Initial Review Date: 12/21/2018 Generated: 01/01/19 1:46 pm Comments DCP- Discharge Planning Updated by [email or web address]: Jannette Gomez on 01/01/19 11:[address] DC WITH HH THRU [facility] SIGNED . ALL INFO CALLED IN [place] OFFICE AND FAXED DCP- Discharge Planning Updated by [email or web address]: Brandin Garcia on 12/30/18 3:[address] Patient Name: ABBY PHILLIPS Encounter No: [id number] : 1945 Primary Insurance: [facility] MEDICARE SOLUTIONS Anticipated DC Date: 12-31-2018 Planned Disposition: Home with Home Health External Planned Provider: TO BE DETERMINED DCP follow-up note: CM MET WITH PT IN ROOM TO DISCUSS DISCHARGE NEEDS AND PLANNING. CM DISCUSSED AVAILABILITY OF HOME HEALTH, REHAB SERVICES AND MEDICAL EQUIPMENT. PT DENIES REHAB NEED, STATES HE WANTS HOME HEALTH FOR HOME PHYSICAL THERAPY. PT STATES HE HAS NO PREFERENCE ON PROVIDER FROM [place] FOR HOME HEALTH. CHOICE SIGNED. PT PLANS TO DISCHARGE HOME WITH ASSISTANCE OF SISTER. PT'S SISTER TO TRANSPORT HOME AT DISCHARGE. IMPORTANT MESSAGE FROM MEDICARE PROVIDED AND EXPLAINED. CM TO FOLLOW AND ASSIST NEEDED. PT PLANS TO DISCHARGE HOME WITH SISTER. PT WANTS HOME HEALTH FOR PHYSICAL THERAPY. CM TO ARRANGE WITH NO PROVIDER PREFERENCE WITH PHYSICIAN AGREEMENT AND ORDER. Brandin Garcia, CASE MANAGEMENT DCP- Discharge Planning Updated by [id number]: Lizzie Basurto on 12/24/18 10:[address] CM VISITED W/ THE PATIENT AT THE BEDSIDE. HE STATES HE IS FEELING WORSE TODAY. PATIENT IS NPO FOR SURGERY FOR DIALYSIS ACCESS. HE STATED HE WAS COLD. CM PROVIDED A WARM BLANKET. HE STATED HE HAD ABDOMINAL PAIN AND "WAS HURTING ALL OVER." CM ADVISED HIS PRIMARY NURSE. THE PATIENT PLANS TO RETURN TO HOME AT DISCHARGE. LIVES WITH HIS SISTER. IS WILLING TO CONSIDER HOME HEALTH IF NEEDED. DID NOT GO INTO A LONG EXPLANATION HE IS UNCOMFORTABLE. HAS DME NOTED BUT CANNOT RECALL THE PROVIDER'S NAME. THE DME COMPANY IS LOCATED IN [place]. PHARMACY- [facility] IN [place] PCP IS LOCATED IN [facility]. CM WILL F/U WHEN PATIENT IS MORE COMFORTABLE. DCPIA - Discharge Planning Initial Assessment Updated by [id number]: Lizzie Basurto on 12/24/18 10:58 am * Is the patient Alert and Oriented? Yes * How many steps to enter\\exit or inside your home? NONE * PCP [facility] SEAN [facility]RIEDMAN * Pharmacy [facility] IN [place], [place] * Preadmission Environment Home with Family * ADLs Independent * Equipment BIPAP Cane Oxygen Wheelchair * Other Equipment OXYGEN STATIONARY UNIT AND PORTABLE, CANE, WHEELCHAIR, SHOWER CHAIR * List name and contact numbers for known caregivers / representatives who currently or will assist patient after discharge: PARRISH GORDON- [facility]- [phone] * Verbal permission to speak to the caregivers and representatives has been obtained from the patient. No * Community resources currently utilized None * Please name any agencies selected above. N/A * Additional services required to return to the preadmission environment? Yes * Can the patient safely return to the preadmission environment? Yes * Has this patient been hospitalized within the prior 30 days at any hospital? No Coverage Notice Reviewer: [id number] Garcia Notice Issued Date-Time: 12/30/2018 15:55 Notice Type: Patient Choice Letter Notice Delivered To: Patient Relationship to Patient: Machine Cutter Name: Delivery Method: HAND - Hand Delivered Anusha Days: Prior Verbal Notification: Recipient Understood Notice: Yes Recipient Signature: Yes Med Rec Note Co-signed by Attending: Coverage Notice Comment: NO HOME HEALTH PROVIDER CHOICE OUT OF [place] PT ZAF[facility] CALDERON Reviewer: [id number] Skylar Garcia Notice Issued Date-Time: 12/30/2018 15:55 Notice Type: IM Discharge Notice Notice Delivered To: Patient Relationship to Patient: Machine Cutter Name: Delivery Method: HAND - Hand Delivered Anusha Days: Prior Verbal Notification: Recipient Understood Notice: Yes Recipient Signature: Yes Med Rec Note Co-signed by Attending: Coverage Notice Comment: Last DP export: 12/30/18 3:34 p Patient Name: ABBY PHILLIPS Page 46898 at 1247 All edits/amendments must be made on the electronic document DICTATION DATE: 01/01/19 124 INDEPENDENT LIVING SPECIALIST: APRIL 01/01/19 1246 RPT#: [id number] DC DATE: STATUS: ADM IN [facility] [address] [place] [address] END OF REPORT
--- NOTE | 2019-01-01 15:14 | NUR ---
PT ESCORTED OUT VIA WHEELCHAIR TO SISTERS P.O.V WITH [facility]HA BY SIDE. AID ALICIA AND I ASSISTED IN TRANSFERS. PT REFUSED TO LET ME SEND HIM HOME WITH OXYGEN SINCE THE FAMILY FORGOT HIS. I TRIED MULTIPLE TIMES AND EXPLAINED THE RISK. DENIED MY ADVICE.
--- NOTE | 2019-01-03 10:31 | MORECARE ---
CASE MANAGEMENT DISCHARGE SUMMARY PATIENT: ABBY PHILLIPS UNIT: [id number] ADM DATE: 12/21/18 AGE: 73 : 47 SEX: M ROOM/BED: D.6702 AUTHOR: BYRON,DOC PHYSICIAN: REFERRING PHYSICIAN: THANH ALEJANDRO MD DATE OF SERVICE: 01/03/19 Discharge Plan Patient Name: ABBY PHILLIPS Facility: [facility]:[place] : 1945 Planned Disposition: Home with Home Health Anticipated Discharge Date: 01/01/19 Discharge Date: 01/01/2019 Expected LOS: 11 Initial Reviewer: [id number] Initial Review Date: 12/21/2018 Generated: 01/03/19 11:30 am Comments DCP- Discharge Planning Updated by [email or web address]: Jannette Gomez on 01/01/19 11:[address] DC WITH HH THRU [facility] SIGNED . ALL INFO CALLED IN [place] OFFICE AND FAXED DCP- Discharge Planning Updated by [id number]: Brandin Garcia on 12/30/18 3:[address] Patient Name: ABBY PHILLIPS Encounter No: [id number] : 1945 Primary Insurance: [facility] MEDICARE SOLUTIONS Anticipated DC Date: 12-31-2018 Planned Disposition: Home with Home Health External Planned Provider: TO BE DETERMINED DCP follow-up note: CM MET WITH PT IN ROOM TO DISCUSS DISCHARGE NEEDS AND PLANNING. CM DISCUSSED AVAILABILITY OF HOME HEALTH, REHAB SERVICES AND MEDICAL EQUIPMENT. PT DENIES REHAB NEED, STATES HE WANTS HOME HEALTH FOR HOME PHYSICAL THERAPY. PT STATES HE HAS NO PREFERENCE ON PROVIDER FROM [place] FOR HOME HEALTH. CHOICE SIGNED. PT PLANS TO DISCHARGE HOME WITH ASSISTANCE OF SISTER. PT'S SISTER TO TRANSPORT HOME AT DISCHARGE. IMPORTANT MESSAGE FROM MEDICARE PROVIDED AND EXPLAINED. CM TO FOLLOW AND ASSIST NEEDED. PT PLANS TO DISCHARGE HOME WITH SISTER. PT WANTS HOME HEALTH FOR PHYSICAL THERAPY. CM TO ARRANGE WITH NO PROVIDER PREFERENCE WITH PHYSICIAN AGREEMENT AND ORDER. Brandin Garcia, CASE MANAGEMENT DCP- Discharge Planning Updated by [id number]: Lizzie Basurto on 12/24/18 10:[address] CM VISITED W/ THE PATIENT AT THE BEDSIDE. HE STATES HE IS FEELING WORSE TODAY. PATIENT IS NPO FOR SURGERY FOR DIALYSIS ACCESS. HE STATED HE WAS COLD. CM PROVIDED A WARM BLANKET. HE STATED HE HAD ABDOMINAL PAIN AND "WAS HURTING ALL OVER." CM ADVISED HIS PRIMARY NURSE. THE PATIENT PLANS TO RETURN TO HOME AT DISCHARGE. LIVES WITH HIS SISTER. IS WILLING TO CONSIDER HOME HEALTH IF NEEDED. DID NOT GO INTO A LONG EXPLANATION HE IS UNCOMFORTABLE. HAS DME NOTED BUT CANNOT RECALL THE PROVIDER'S NAME. THE DME COMPANY IS LOCATED IN [place]. PHARMACY- [facility] IN [place] PCP IS LOCATED IN [facility]. CM WILL F/U WHEN PATIENT IS MORE COMFORTABLE. DCPIA - Discharge Planning Initial Assessment Updated by [id number]: Lizzie Basurto on 12/24/18 10:58 am * Is the patient Alert and Oriented? Yes * How many steps to enter\\exit or inside your home? NONE * PCP [facility] SEAN FRIEDMAN * Pharmacy [facility] IN [place], [place] * Preadmission Environment Home with Family * ADLs Independent * Equipment BIPAP Cane Oxygen Wheelchair * Other Equipment OXYGEN STATIONARY UNIT AND PORTABLE, CANE, WHEELCHAIR, SHOWER CHAIR * List name and contact numbers for known caregivers / representatives who currently or will assist patient after discharge: PARRISH GORDON- [facility]- [phone] * Verbal permission to speak to the caregivers and representatives has been obtained from the patient. No * Community resources currently utilized None * Please name any agencies selected above. N/A * Additional services required to return to the preadmission environment? Yes * Can the patient safely return to the preadmission environment? Yes * Has this patient been hospitalized within the prior 30 days at any hospital? No Coverage Notice Reviewer: [id number] Garcia Notice Issued Date-Time: 12/30/2018 15:55 Notice Type: Patient Choice Letter Notice Delivered To: Patient Relationship to Patient: Bit Sharpener Operator Name: Delivery Method: HAND - Hand Delivered Anusha Days: Prior Verbal Notification: Recipient Understood Notice: Yes Recipient Signature: Yes Med Rec Note Co-signed by Attending: Coverage Notice Comment: NO HOME HEALTH PROVIDER CHOICE OUT OF [place] PT ZAFAR CALDERON Reviewer: [id number] Garcia Notice Issued Date-Time: 12/30/2018 15:55 Notice Type: IM Discharge Notice Notice Delivered To: Patient Relationship to Patient: Bit Sharpener Operator Name: Delivery Method: HAND - Hand Delivered Anusha Days: Prior Verbal Notification: Recipient Understood Notice: Yes Recipient Signature: Yes Med Rec Note Co-signed by Attending: Coverage Notice Comment: Last DP export: 01/01/19 11:46 a Patient Name: ABBY PHILLIPS Page 16046 at 1031 All edits/amendments must be made on the electronic document DICTATION DATE: 01/03/19 1030 PEST CONTROL APPLICATOR: APRIL 01/03/19 1030 RPT#: [id number] DC DATE:01/01/19 STATUS: DIS IN [facility] [address] [place] [address] END OF REPORT
== END 2019-01-01 15:16 | disposition home health service (06) | DRG 673 ==
LOC: D.ER 16:47 → D.EDHOLD 17:17 → D.M2 17:17
PROVIDERS: Family Medicine; Internal Medicine Nephrology; Surgery; ADMIT Family Medicine; ATTEND Family Medicine
PROC: 03180JF Bypass Left Brachial Artery to Lower Arm Vein with Synthetic Substitute, Open Approach (ICD-10-PCS; principal; 2018-12-28 12:00)
DX: N17.9 Acute kidney failure, unspecified (principal); G92 Toxic encephalopathy; I50.31 Acute diastolic (congestive) heart failure; I13.2 Hypertensive heart and chronic kidney disease with heart failure and with stage 5 chronic kidney disease, or end stage renal disease; E87.1 Hypo-osmolality and hyponatremia; N39.0 Urinary tract infection, site not specified; E11.22 Type 2 diabetes mellitus with diabetic chronic kidney disease; N18.5 Chronic kidney disease, stage 5; D63.1 Anemia in chronic kidney disease; E03.9 Hypothyroidism, unspecified; R00.1 Bradycardia, unspecified; E87.5 Hyperkalemia; J98.4 Other disorders of lung; I44.0 Atrioventricular block, first degree; G25.81 Restless legs syndrome; B96.20 Unspecified Escherichia coli [E. coli] as the cause of diseases classified elsewhere

== ENCOUNTER 2019-04-09 16:18 | Inpatient (IN) | payer MEDICARE ==
[2019-04-09] VITALS (7 sets, daily range): BP systolic 98–156; BP diastolic 55–91; BMI 23.8
[~2019-04-09] VITALS: Ht 168.9 cm; Wt 67.4 kg
[~2019-04-09 16:18] MED LIST: BAYER ASPIRIN325 MG PO; BUMEX2 MG PO; CARDURA4 MG PO; CEFUROXIME500 MG PO; FERROUS SULFAT325 MG PO; LASIX80 MG PO; LIPITOR20 MG PO; LISINOPRIL5 MG PO; LOPRESSOR25 MG PO; LYRICA200 MG PO; METOLAZONE5 MG PO; METOPROLOL TART50 MG PO; NEXIUM40 MG PO; PLAVIX75 MG PO; QUESTRAN LIG1 PACKET PO; REQUIP0.25 MG PO; REQUIP1 MG PO; SYNTHROID50 MCG PO; TRAZODONE HCL150 MG PO; VITAMIN D31000 UNIT PO; ZYLOPRIM100 MG PO
[2019-04-09] MEDS ORDERED: ZYLOPRIM100 MG PO (16:20)
[2019-04-09] MEDS ORDERED: BAYER CHEWABLE81 MG PO (16:21)
[2019-04-09] MEDS ORDERED: LASIX80 MG PO (16:22)
[2019-04-09] MEDS ORDERED: METOPROLOL TART50 MG PO (16:23)
[2019-04-09] MEDS ORDERED: TRAZODONE (16:24)
[2019-04-09] MEDS ORDERED: VITAMIN D3 (16:24)
--- NOTE | 2019-04-09 16:30 | NUR ---
PIV TO LAV STARTED BOTTOM FILLER. PT STATES THE FISTULA (NOTED BY THRILL) TO LT UPPER ARM IS NOT FUNCTIONING AND WAS ONLY USED ONCE. DIALYSIS CATH NOTED TO RT CHEST.
[2019-04-09 17:45] LABS: MAGNESIUM - SERUM 1.7 mg/dL (1.8-2.4); POTASSIUM - SERUM 3.7 mmol/L (3.5-5.1); TROPONIN-I 0.032 ng/mL (0.000-0.060)
--- NOTE | 2019-04-09 19:00 | NUR ---
RECIEVED PT FROM ED. ADMISSION ASSESSMENT COMPLETE. VSS STABLE. NO VISUAL CUES OF DISTRESS NOTED. WILL CONTINUE TO MONITOR.
--- NOTE | 2019-04-09 19:20 | MORECARE ---
CASE MANAGEMENT DISCHARGE SUMMARY PATIENT: ABBY PHILLIPS UNIT: [id number] ADM DATE: 04/09/19 AGE: 73 : [birth year] SEX: M ROOM/BED: D.2305 AUTHOR: NICOLASA MATTHEWS PHYSICIAN: REFERRING PHYSICIAN: DARREL TOURE DO DATE OF SERVICE: 04/09/19 Discharge Plan Patient Name: ABBY PHILLIPS Facility: [facility]:[place] : 1945 Planned Disposition: Home Anticipated Discharge Date: 04/11/19 Discharge Date: Expected LOS: 2 Initial Reviewer: [email or web address] Initial Review Date: 04/09/2019 Generated: 04/09/19 8:20 pm DCPIA - Discharge Planning Initial Assessment Updated by [email or web address]: Lia Gordon on 04/09/19 7:18 pm * Is the patient Alert and Oriented? Yes * PCP Dr. Jef Erwin * Pharmacy [facility] * Preadmission Environment Home with Family * ADLs Partial Dependent * Partial ADLs (Assistance needed) Ambulation Medication Management Transfers * Equipment Wheelchair * List name and contact numbers for known caregivers / representatives who currently or will assist patient after discharge: Mariah Bauer - sister - [phone] * Verbal permission to speak to the caregivers and representatives has been obtained from the patient. Yes * Community resources currently utilized Other * Please name any agencies selected above. Dialysis [facility] Sister transports him to & from HD. * Additional services required to return to the preadmission environment? No * Can the patient safely return to the preadmission environment? Yes * Has this patient been hospitalized within the prior 30 days at any hospital? No Patient Name: ABBY PHILLIPS Page 40317 at 1920 All edits/amendments must be made on the electronic document DICTATION DATE: 04/09/191919 FIELD SUPERINTENDENT: APRIL 04/09/191919 RPT#: [id number] DC DATE: STATUS: ADM IN [facility] [address] [place] [address] END OF REPORT
--- NOTE | 2019-04-09 19:27 | MORECARE ---
CASE MANAGEMENT DISCHARGE SUMMARY PATIENT: ABBY PHILLIPS UNIT: [id number] ADM DATE: 04/09/19 AGE: 73 : [birth year] SEX: M ROOM/BED: D.2305 AUTHOR: BYRON,DOC PHYSICIAN: REFERRING PHYSICIAN: DARREL TOURE DO DATE OF SERVICE: 04/09/19 Discharge Plan Patient Name: ABBY PHILLIPS Facility: [facility]:[place] : 1945 Planned Disposition: Home Anticipated Discharge Date: 04/11/19 Discharge Date: Expected LOS: 2 Initial Reviewer: [email or web address] Initial Review Date: 04/09/2019 Generated: 04/09/19 8:26 pm Comments DCP- Discharge Planning Updated by [id number]: Lia Gordon on 04/09/19 6:[address] DC PLAN: Return home with his sister. Ambulance to transport. ANTICIPATED DC NEEDS: Refused rehab- unsure about home health. CM met with patient to complete initial dc planning assessment. CM educated patient on the CM role and verbal consent given by patient to complete assessment. CM verified patient's address, phone number, and emergency contact phone numbers. Patient lives at home with his sister. He reports his sister transports him to and from dialysis on ,,S[place] in [place]. At discharge patient plans to return home with his sister and feels this is a safe discharge. CM discussed availability of home health, rehab services, and medical equipment. He reports he is not able to ambulate now. CM asked about rehab and he said he would not go to rehab. He is unsure if he would want HH at this time. He has however had home health before. Patient denied known discharge needs at this time. Patient reports he will transport home by ambulance time of discharge. CM will continue to follow and will assist as needed with dc plans/needs. Lia Gordon RN, [facility] DCPIA - Discharge Planning Initial Assessment Updated by [id number]: Lia Gordon on 04/09/19 7:18 pm * Is the patient Alert and Oriented? Yes * PCP Dr. Jef Erwin * Pharmacy [facility] * Preadmission Environment Home with Family * ADLs Partial Dependent * Partial ADLs (Assistance needed) Ambulation Medication Management Transfers * Equipment Wheelchair * List name and contact numbers for known caregivers / representatives who currently or will assist patient after discharge: Mariah Bauer - sister - [phone] * Verbal permission to speak to the caregivers and representatives has been obtained from the patient. Yes * Community resources currently utilized Other * Please name any agencies selected above. Dialysis [facility] Sister transports him to & from HD. * Additional services required to return to the preadmission environment? No * Can the patient safely return to the preadmission environment? Yes * Has this patient been hospitalized within the prior 30 days at any hospital? No Last DP export: 04/09/19 6:20 p Patient Name: ABBY PHILLIPS Page 18840 at 1927 All edits/amendments must be made on the electronic document DICTATION DATE: 04/09/191925 SOLUTIONS OPERATOR: APRIL 04/09/191925 RPT#: [id number] DC DATE: STATUS: ADM IN [facility] [address] [place] [address] END OF REPORT
[2019-04-10] VITALS (25 sets, daily range): BP systolic 83–170; BP diastolic 31–118
--- NOTE | 2019-04-10 07:15 | NUR ---
REPORT RECEIVED. PT AWAKE AND ALERT. RESERVE LEFT ARM. TO RECEIVE DIALYSIS TODAY. PT HAS A LEFT ARM FISTULA. HE HAS A RIGHT CHEST HEMESPLIT AND A RIGHT UPPER ARM PIV. PT HAS PRESSURE ULCER TO COCCYX THAT IS COVERED WITH MEPELEX DRESSING. HE IS WEARING O2 AT 2L. HE HAS A G-TUBE. VSS. WILL CONTINUE TO MONITOR.
[2019-04-10 07:37] LABS: BASOPHILS 0 % (0-2); EOSINOPHILS 0 % (0-7); HEMATOCRIT 22.3 % (42.0-54.0); IMMATURE GRANULOCYTES 0.3 % (0-5); LYMPHOCYTES 8.1 % (15-50); MCH 25.5 pg (26.0-34.0); MCHC 30.9 g/dL (31.0-37.0); MCV 82.3 fL (80.0-100.0); NEUTROPHILS 85.6 % (40-80); RBC 2.71 10x6/uL (4.20-6.10); RDW 17.7 % (11.5-14.5); WBC 11.8 10x3/uL (4.8-10.8)
[2019-04-10 07:42] LABS: HEMOGLOBIN 6.9 g/dL (13.5-17.5); PLATELET COUNT 354 10x3/uL (130-400)
[2019-04-10 07:58] LABS: ALBUMIN 2.3 g/dL (3.4-5.0); ANION GAP 13.5 mmol/L (8-16); BILIRUBIN - TOTAL 0.37 mg/dL (0.2-1.3); CALCIUM 7.3 mg/dL (8.5-10.1); CARBON DIOXIDE 27.5 mmol/L (21.0-32.0); CREATININE - SERUM 4.1 mg/dL (0.6-1.3); PROTEIN - SERUM 5.6 g/dL (6.4-8.2)
--- NOTE | 2019-04-10 09:04 | NUR ---
PT ANGERED WHEN TOLD THAT HE WOULD BE NPO. STATED "HE WOULD NOT WAIT TO HAVE TO SWALLOW EVAL," AND THAT "YALL MAY FOLLOW THAT, BUT I WON'T." CALLED HERIBERTO OHARA, AND TOLD HER WHAT PT SAID AND HOW HE ACTED. SHE STATED TO TRY MECH SOFT DIET AND TO WATCH PT, AND THAT IF HE STARTS COUGHING AND CHOKING ON DINNER TO REMOVE IT AND MAKE HIM NPO AGAIN. WILL MONITOR.
--- NOTE | 2019-04-10 11:00 | NUR ---
PT RESTING QUIETLY. LAB ABLE TO GET 1ST CULTURE. UNABLE TO OBTAIN 2ND CULTURE AT THIS TIME. WENT ON AND GAVE 1ST DOSE OF VANC.
--- NOTE | 2019-04-10 12:30 | NUR ---
2ND BLOOD CULTURE OBTAINED.
--- NOTE | 2019-04-10 13:15 | NUR ---
DIALYSIS NURSE HERE STARTING PT ON DIALYSIS. TO RECEIVE BLOOD DURING DIALYSIS. WILL CONTINUE TO MONITOR.
--- NOTE | 2019-04-10 13:23 | NUR ---
PT CHOKING AND SPUTTERING ON LUNCH. REMOVED HIS TRAY AND TOLD HIM THAT HE COULDN'T HAVE ANYTHING ELSE TO EAT OR DRINK. PT UPSET, BUT EDUCATION PROVIDED ABOUT ASPIRATION. WILL MAKE PT NPO (PER DISCUSSION WITH HERIBERTO OHARA, EARLIER THIS AM).
--- NOTE | 2019-04-10 13:45 | NUR ---
DR TOURE WANTS PT TO HAVE BOLUS FEEDINGS VIA G-TUBE TID WITH 120ML OF NEPRO, TO TITRATE UP TO GOAL OF 240ML TID. HOLD IF RESIDUAL IS >200.
--- NOTE | 2019-04-10 14:33 | NUR ---
GETTING 1ST UNIT OF BLOOD WITH DIALYSIS.
--- NOTE | 2019-04-10 15:11 | NUR ---
PT STILL ON DIALYSIS. HAS FINISHED RECEIVING 2 UNITS OF PRBC.
--- NOTE | 2019-04-10 17:20 | NUR ---
BOLUS FEED OF 120ML NEPRO GIVEN WITH FLUSH. PT TOLERATED WELL. BRUSHED TEETH. PT SUCTIONING SPUTUM OUT OF MOUTH. VSS. WILL CONTINUE TO MONITOR.
--- NOTE | 2019-04-10 18:18 | NUR ---
PT REQUESTED FAN FOR ROOM. CALLED ANTHROPOLOGY INSTRUCTOR. STATED SHE WOULD LOOK FOR ONE.
--- NOTE | 2019-04-10 19:00 | NUR ---
REPORT RECEIVED, CARE ASSUMED. PT IS RESTING IN BED AT THIS TIME. REQUESTED A FAM FOR HIS ROOM, CALLED VERTICAL ROLL OPERATOR AGAIN, FAN LOCATED AND PLACED INTO ROOM FOR PATIENT. INITIAL ASSESSMENT COMPLETED, SEE FLOWSHEET FOR DETAILS. PT IS WANTING TO KNOW IF HE IS GOING HOME TOMORROW. NO FURTHER NEEDS NOTED. NO SIGNS OF ACUTE DISTRESS. WILL CONTINUE TO MONITOR.
--- NOTE | 2019-04-10 21:00 | NUR ---
PT IS RESTING IN BED AT THIS TIME. NO SIGNS OF ACUTE DISTRESS. NIGHT MEDS GIVEN PER G TUBE, SEE EMAR FOR DETAILS. WILL CONTINUE TO MONITOR.
--- NOTE | 2019-04-10 23:00 | NUR ---
REASSESSMENT COMPLETED, SEE FLOWSHEET FOR DETAILS. PT COMPLAINED OF NOT BEING ABLE TO SLEEP, READJUSTED PT IN BED. NO FURTHER NEEDS NOTED. NO SIGNS OF ACUTE DISTRESS. WILL CONTINUE TO MONITOR.
[2019-04-11] VITALS (16 sets, daily range): BP systolic 94–162; BP diastolic 36–337; Ht 168.9 cm; Wt 67.4 kg
--- NOTE | 2019-04-11 01:00 | NUR ---
PT IS RESTING IN BED AT THIS TIME. PT DENIES NEEDS AT THIS TIME. NO SIGNS OF ACUTE DISTRESS NOTED. WILL CONTINUE TO MONITOR.
[2019-04-11 02:57] LABS: BASOPHILS 0 % (0-2); EOSINOPHILS 1.1 % (0-7); IMMATURE GRANULOCYTES 0.3 % (0-5); LYMPHOCYTES 14.1 % (15-50); MCH 25.9 pg (26.0-34.0); MCHC 30.6 g/dL (31.0-37.0); MEAN PLATELET VOLUME 9.8 fL (7.4-10.4); MONOCYTES 11.7 % (2-11); NEUTROPHILS 72.8 % (40-80); PLATELET COUNT 355 10x3/uL (130-400); RDW 16.8 % (11.5-14.5); WBC 11.3 10x3/uL (4.8-10.8)
--- NOTE | 2019-04-11 03:00 | NUR ---
REASSESSMENT COMPLETED, SEE FLOWSHEET FOR DETAILS. PT IS LAYING IN BED REQUESTING PAPERWORK TO GO AMA. ADVISED PT THAT AT THIS TIME HE WOULD BE UNABLE TO GO AMA DUE TO HIM BEING UNABLE TO LEAVE THE HOSPITAL ON HIS OWN. THIS DID NOT SATISFY PT. I TOLD HIM THAT HE WOULD NEED TO BE RELEASED FROM THE HOSPITAL BY HIS PHYSICIAN. NO FURTHER NEEDS NOTED. NO SIGNS OF ACUTE DISTRESS. WILL CONTINUE TO MONITOR.
[2019-04-11 03:04] LABS: HEMATOCRIT 31.7 % (42.0-54.0); HEMOGLOBIN 9.7 g/dL (13.5-17.5); MCV 84.5 fL (80.0-100.0); RBC 3.75 10x6/uL (4.20-6.10)
[2019-04-11 03:16] LABS: ANION GAP 11.1 mmol/L (8-16); CALCIUM 7.9 mg/dL (8.5-10.1); CARBON DIOXIDE 30.5 mmol/L (21.0-32.0); VANCOMYCIN - RANDOM 17.9 ug/mL (10.0-20.0)
[2019-04-11 03:17] LABS: CREATININE - SERUM 2.7 mg/dL (0.6-1.3); POTASSIUM - SERUM 3.6 mmol/L (3.5-5.1)
--- NOTE | 2019-04-11 05:00 | NUR ---
PT IS LAYING IN BED WATCHING TV AT THIS TIME. NO NEEDS VOICED. NO SIGNS OF ACUTE DISTRESS. WILL CONTINUE TO MONITOR.
--- NOTE | 2019-04-11 09:54 | NUR ---
SPOKE WITH MOTHER IN LAW OF PT. GOT PT SON PHONE NUMBER FROM HER. TRANSFERRED SON TO PT ROOM.
--- NOTE | 2019-04-11 10:10 | NUR ---
PATIENT STATED SON WAS GOING TO COME PICK HIM UP.
--- NOTE | 2019-04-11 10:11 | NUR ---
DR TOURE AWARE OF PT WANTING TO LEAVE AMA.
--- NOTE | 2019-04-11 10:16 | NUR ---
[facility] PHONE NUMBER [phone]
--- NOTE | 2019-04-11 10:22 | NUR ---
PATIENT STATED HE WNATED TO BE DISCONNECTED FROM EVERYTING OR HE WOULD RIP IT OUT. I REMOVED IV, BLOOD PRESSURE CUFF, SPO2, AND TELEMETRY. EDUCATED HIM WE WOULD NOT BE ABLE TO MONITOR HIM WITHOUT THESE THINGS. HE STATED HE UNDERSTOOD. PATIENT WANTED A WHEELCHAIR. EDUCATED ON WHY I CAN NOT PROVIDE HIM WITH THAT.
--- NOTE | 2019-04-11 10:23 | NUR ---
PATIENT BLOOD PRESSURE IS HIGH. 202/48. HE REFUSED APRESOLINE. EDUCATED ON WHAT A HIGH BP DOES. STATED HE UNDRSTOOD THAT.
--- NOTE | 2019-04-11 11:07 | NUR ---
PATIENT REFUSED A FINGER STICK. TOLD HIM WE NEEDED TO CHECK HIS BLOOD SUGAR BUT HE STATED HIS SON WAS BOUT TO BE HERE TO PICK HIM UP.
--- NOTE | 2019-04-11 11:16 | NUR ---
NEPRO GIVEN. PATIENT DID NOT REFUSE. STATED HE UNDERSTOOD WHY NEPRO WAS BEING GIVEN.
--- NOTE | 2019-04-11 12:15 | NUR ---
spoke with son. stated he worked in and will not be able to pick him up at 1230. he stated he will be by this afternoon to speak with him.
--- NOTE | 2019-04-11 12:24 | NUR ---
spoke with sister. [phone]. stated she would get in contact with other sister to see what will be done about his ride.
--- NOTE | 2019-04-11 13:08 | NUR ---
patient keeps calling people in the hospital trying to get someone to pick him up.
--- NOTE | 2019-04-11 13:09 | NUR ---
sister has stated she will not come pick him up. pt aware she said that. no leads. no BP cuff no SPO2 attached due to refusal. patient wont even let me touch him to pull him up in bed.
--- NOTE | 2019-04-11 14:10 | NUR ---
GIANNI LOMBARDI STATED TO KEEP PATIENT HERE UNTIL WE KNOW MORE ABOUT WHETHER PT WILL HAVE A RIDE THIS AFTERNOON.
--- NOTE | 2019-04-11 14:31 | NUR ---
SPOKE WITH TRACY GALE. [phone].
--- NOTE | 2019-04-11 15:03 | NUR ---
spoke with son siddharth and sister jam. they stated they will not come by to pick him up. they want him to stay in the hospital. explained this to patient. explained to patient why he should remain in the hospital.
--- NOTE | 2019-04-11 15:14 | NUR ---
spoke with manuel from [facility]. explained situation. she is aware pt wants to leave AMA. stated she will speak with family as to why they can not transfer him over there until it is a actual discharge from the doctor.
--- NOTE | 2019-04-11 15:42 | NUR ---
nepro given at this time
--- NOTE | 2019-04-11 16:40 | NUR ---
ATTEMPTED AN IV TWICE ON PATIENT BECAUSE FIRST ONE WAS TAKEN OUT DUE TO AMA. NO SUCCESS.
--- NOTE | 2019-04-11 16:45 | NUR ---
speech eval at bedside. [facility] soft diet.
--- NOTE | 2019-04-11 17:08 | NUR ---
BLOOD PRESSURE CUFF PUT ON LEFT LOWER EXTREMITY. DULCE MARIATENT STATE THE BLOOD PRESSURE CUFF WAS MAKING HIS RIGHT ARM ACHE.
--- NOTE | 2019-04-11 17:08 | NUR ---
CHG BATH AND LINEN CHANGE. PATIENT IS COMPLIANT
--- NOTE | 2019-04-11 17:30 | NUR ---
PATIENT SON CAME BUT IS NOT TAKING PATIENT HOME.
--- NOTE | 2019-04-11 17:30 | NUR ---
chg bath and full linen change. patient laying in bed watching tv. suction at bedside. will continue to monitor.
--- NOTE | 2019-04-11 18:38 | NUR ---
patient ate 20% of meal. patient went sinus tach while eating. he had a hard time eating. he was sob. pulled him up in bed and raised his oxygen for 10 minutes until sob stopped. vss. will continue to monitor patient
--- NOTE | 2019-04-11 19:00 | NUR ---
BEDSIDE REPORT AND SHIFT ASSESSMENT COMPLETE. VSS, NO SIGNS OF ACUTE DISTRESS NOTED. PT REQUESTING SLEEPING MEDICINE, WILL CHECK MAR. DENIES ANY OTHER NEEDS AT THIS TIME, CALL LIGHT IN REACH. WILL CONTINUE TO MONITOR.
--- NOTE | 2019-04-11 21:00 | NUR ---
MEDS GIVEN PER MAR WITH APPLESAUCE, PT TOLERATED. DENIES ANY NEEDS AT THIS TIME. CALL LIGHT IN REACH, WILL CONTINUE TO MONITOR.
--- NOTE | 2019-04-11 23:00 | NUR ---
PT SLEEPING. VSS, NO SIGNS OF ACUTE DISTRESS NOTED. CALL LIGHT IN REACH, WILL CONTINUE TO MONITOR.
--- NOTE | 2019-04-12 01:00 | NUR ---
PT SLEEPING. VSS, NO SIGNS OF ACUTE DISTRESS NOTED. WILL CONTINUE TO MONITOR.
[2019-04-12 03:00] VITALS: BP 114/63
--- NOTE | 2019-04-12 03:00 | NUR ---
PT SLEEPING. VSS, NO SIGNS OF ACUTE DISTRESS NOTED. CALL LIGHT IN REACH.
[2019-04-12 05:19] LABS: BASOPHILS 0 % (0-2); EOSINOPHILS 2.2 % (0-7); HEMATOCRIT 31.3 % (42.0-54.0); HEMOGLOBIN 9.7 g/dL (13.5-17.5); IMMATURE GRANULOCYTES 0.3 % (0-5); LYMPHOCYTES 13.9 % (15-50); MCH 25.9 pg (26.0-34.0); MCV 83.7 fL (80.0-100.0); MEAN PLATELET VOLUME 9.8 fL (7.4-10.4); MONOCYTES 14.8 % (2-11); NEUTROPHILS 68.8 % (40-80); PLATELET COUNT 375 10x3/uL (130-400); RBC 3.74 10x6/uL (4.20-6.10); RDW 16.9 % (11.5-14.5); WBC 10.7 10x3/uL (4.8-10.8)
[2019-04-12 05:46] LABS: ANION GAP 10.6 mmol/L (8-16); CALCIUM 7.7 mg/dL (8.5-10.1); CARBON DIOXIDE 29.7 mmol/L (21.0-32.0); POTASSIUM - SERUM 3.3 mmol/L (3.5-5.1); VANCOMYCIN - RANDOM 16.1 ug/mL (10.0-20.0)
[2019-04-12 05:47] LABS: CREATININE - SERUM 3.5 mg/dL (0.6-1.3)
--- NOTE | 2019-04-12 06:45 | NUR ---
PT SLEEPING. VSS, NO SIGNS OF ACUTE DISTRESS NOTED.
[2019-04-12 07:00] VITALS: BP 116/48
--- NOTE | 2019-04-12 07:21 | NUR ---
RN LEFT BEFORE GIVING INSULIN. WENT BACK THROUGH GLUCOMETER AND COULD NOT FIND RESULTS THAT MATCHED MEDICAL RECORD NUMBER. LAST SUGAR WAS 142. NO INSULIN GIVEN.
--- NOTE | 2019-04-12 07:40 | NUR ---
RECEIEVED REPORT. INSULIN NOT GIVEN PER PROTOCOL. PATIENT IS ALERT AND AWAKE. STATES HE WANTS TO HAVE DIALYSIS TODAY. BED LOW AND LOCKED. NO DISTRESS. PATIENT TURNED TO SIDE. HOB 30. WILL CONTINUE TO MONITOR.
--- NOTE | 2019-04-12 09:45 | NUR ---
REPORT RECEIVED FROM HARJIT SOTELO. PT AWAKE AND ALERT IN BED. NO NEEDS AT THIS TIME.
[2019-04-12 11:00] VITALS: BP 106/42
--- NOTE | 2019-04-12 11:08 | NUR ---
SPEECH PATHOLOGIST IN WITH PT AT THIS TIME.
--- NOTE | 2019-04-12 12:43 | NUR ---
Nutrition Follow-up: Evaluated by ST; they rec mechanical soft with ground meats and gravy with thin liquids. Pt eating lunch at time of visit. Reports no difficulty chewing/swallowing. Diet: Regular, Mech Soft with Ground Meats and Gravy and Thin Liquids Wt: 139# No BMs recorded Labs noted: K+ 3.3, Ca 7.7, Glu 142 Meds noted: Lasix, NS @ 40, Humulin -Change to Renal Carb Consistent with consistencies per ST -Nepro with meals -[place] food preferences within diet restrictions -RD following
--- NOTE | 2019-04-12 13:24 | NUR ---
DIALYSIS BEING STARTED ON PT. HAVE ROOM TO TRANSFER PT TO.
--- NOTE | 2019-04-12 13:28 | NUR ---
ATTEMPTED TO CALL MED 2 TO GIVE REPORT. WAS TOLD THAT NURSE WOULD CALL BACK FOR REPORT.
--- NOTE | 2019-04-12 13:45 | NUR ---
REPORT GIVEN TO ANNA RODRIGUEZ, ON MED 2.
--- NOTE | 2019-04-12 14:21 | NUR ---
RECEIVED PT FROM ICU VIA BED. PT IS AAO AND BEDFAST. RR EVEN AND UNLABORED ON 3L 02. PT ABOUT TO BE TRANSFERED TO DIALYSIS. NO S/S OF DISTRESS NOTED. QUICKSTART COMPLETE. PT DENIES ANY NEEDS. WILL CTM.
--- NOTE | 2019-04-12 17:54 | NUR ---
PT RETURNED FROM DIALYSIS. CAREGIVER AT BEDSIDE. PT DENIES ANY NEEDS. WILL CTM.
--- NOTE | 2019-04-12 19:37 | NUR ---
BEDSIDE REPORT RECEIVED FROM DAY SHIFT, PT CARE ASSUMED. INTRODUCED SELF AND WROTE NAME ON BOARD. PT LYING IN BED WATCHING TV AND SUCTIONING MOUTH, AWAKE AND ALERT. DENIES ANY NEEDS AT THIS TIME. BED IN LOWEST POSITION, SR X2, CALL LIGHT WITHIN REACH. WILL CONTINUE TO MONITOR.
[2019-04-12 20:00] VITALS: BP 98/44
--- NOTE | 2019-04-12 21:55 | NUR ---
PT SITTING UP IN BED WATCHING TV. FSBS 231, NIGHT TIME MEDS ADMINISTERED, PER ORDER. SNACK OFFERED AND PT ACCEPTED. DENIES ANY OTHER NEEDS AT THIS TIME. BED IN LOWEST POSITION, SR X2, CALL LIGHT WITHIN REACH. WILL CONTINUE TO MONITOR.
[2019-04-13 00:30] VITALS: BP 97/50
--- NOTE | 2019-04-13 01:21 | NUR ---
PT C/O INABILITY TO SLEEP. PAGED AND SPOKE WITH HERIBERTO CRANDALL, RECEIVED TELEPHONE ORDER FOR LUNESTA 1 MG PO ONE TIME.
[2019-04-13 04:00] VITALS: BP 165/68
[2019-04-13 05:20] LABS: BASOPHILS 0 % (0-2); HEMATOCRIT 33.3 % (42.0-54.0); HEMOGLOBIN 10.3 g/dL (13.5-17.5); IMMATURE GRANULOCYTES 0.4 % (0-5); LYMPHOCYTES 14.2 % (15-50); MCHC 30.9 g/dL (31.0-37.0); MCV 84.1 fL (80.0-100.0); MONOCYTES 14.1 % (2-11); NEUTROPHILS 70.3 % (40-80); PLATELET COUNT 379 10x3/uL (130-400); RBC 3.96 10x6/uL (4.20-6.10); RDW 16.6 % (11.5-14.5)
[2019-04-13 05:43] LABS: CALCIUM 7.5 mg/dL (8.5-10.1); CARBON DIOXIDE 32.4 mmol/L (21.0-32.0); CREATININE - SERUM 2.9 mg/dL (0.6-1.3); POTASSIUM - SERUM 3.4 mmol/L (3.5-5.1); VANCOMYCIN - RANDOM 12.7 ug/mL (10.0-20.0)
[2019-04-13 08:00] VITALS: BP 158/71
[2019-04-13] MEDS ORDERED: OMNICEF300 MG PO (10:53)
--- NOTE | 2019-04-13 11:39 | NUR ---
PER KRISS SANCHES APN WILL REFER FLU SHOT TO DIALYSIS UNIT IN [place].
[2019-04-13 13:59] VITALS: BP 188/70
--- NOTE | 2019-04-13 17:05 | MORECARE ---
CASE MANAGEMENT DISCHARGE SUMMARY PATIENT: ABBY PHILLIPS UNIT: [id number] ADM DATE: 04/09/19 AGE: 73 : 47 SEX: M ROOM/BED: D.7432 AUTHOR: BYRON,DOC PHYSICIAN: REFERRING PHYSICIAN: DARREL TOURE DO DATE OF SERVICE: 04/13/19 Discharge Plan Patient Name: ABBY PHILLIPS Facility: [facility]:[place] : 1945 Planned Disposition: Snf Facility Anticipated Discharge Date: 04/14/19 Discharge Date: Expected LOS: 5 Initial Reviewer: [id number] Initial Review Date: 04/09/2019 Generated: 04/13/19 6:04 pm DCP- Discharge Planning Updated by [id number]: Lia Gordon on 04/09/19 6:[address] DC PLAN: Return home with his sister. Ambulance to transport. ANTICIPATED DC NEEDS: Refused rehab- unsure about home health. CM met with patient to complete initial dc planning assessment. CM educated patient on the CM role and verbal consent given by patient to complete assessment. CM verified patient's address, phone number, and emergency contact phone numbers. Patient lives at home with his sister. He reports his sister transports him to and from dialysis on ,,SAT in [place]. At discharge patient plans to return home with his sister and feels this is a safe discharge. CM discussed availability of home health, rehab services, and medical equipment. He reports he is not able to ambulate now. CM asked about rehab and he said he would not go to rehab. He is unsure if he would want HH at this time. He has however had home health before. Patient denied known discharge needs at this time. Patient reports he will transport home by ambulance time of discharge. CM will continue to follow and will assist as needed with dc plans/needs. Lia Gordon RN, [facility] DCPIA - Discharge Planning Initial Assessment Updated by [id number]: Lia Gordon on 04/09/19 7:18 pm * Is the patient Alert and Oriented? Yes * PCP Dr. Jef Erwin * Pharmacy [facility] * Preadmission Environment Home with Family * ADLs Partial Dependent * Partial ADLs (Assistance needed) Ambulation Medication Management Transfers * Equipment Wheelchair * List name and contact numbers for known caregivers / representatives who currently or will assist patient after discharge: Mariah Bauer - sister - [phone] * Verbal permission to speak to the caregivers and representatives has been obtained from the patient. Yes * Community resources currently utilized Other * Please name any agencies selected above. Dialysis T-TH-SAT Sister transports him to & from HD. * Additional services required to return to the preadmission environment? No * Can the patient safely return to the preadmission environment? Yes * Has this patient been hospitalized within the prior 30 days at any hospital? No External Providers External Provider: [facility] Next Contact Date: 04/13/2019 Service Request Date: Service Type: Resolution: Reviewer: Comments: Coverage Notice Reviewer: [id number] Skylar Garcia Notice Issued Date-Time: 04/13/2019 12:45 Notice Type: Patient Choice Letter Notice Delivered To: Patient Relationship to Patient: Fitness Worker Name: Delivery Method: HAND - Hand Delivered Anusha Days: Prior Verbal Notification: Recipient Understood Notice: Yes Recipient Signature: Yes Med Rec Note Co-signed by Attending: Coverage Notice Comment: NO HOME HEALTH PROVIDER PREFERENCE Reviewer: [id number] Skylar Garcia Notice Issued Date-Time: 04/13/2019 12:45 Notice Type: IM Discharge Notice Notice Delivered To: Patient Relationship to Patient: Fitness Worker Name: Delivery Method: HAND - Hand Delivered Anusha Days: Prior Verbal Notification: Recipient Understood Notice: Yes Recipient Signature: Yes Med Rec Note Co-signed by Attending: Coverage Notice Comment: Last DP export: 04/09/19 6:27 p Patient Name: ABBY PHILLIPS Page [id number] at 1705 All edits/amendments must be made on the electronic document DICTATION DATE: 04/13/191703 DIRECTOR OF STAFF DEVELOPMENT: APRIL 04/13/191703 RPT#: [id number] DC DATE: STATUS: ADM IN [facility] [address] [place] [address] END OF REPORT
--- NOTE | 2019-04-13 17:15 | MORECARE ---
CASE MANAGEMENT DISCHARGE SUMMARY PATIENT: ABBY PHILLIPS UNIT: [id number] ADM DATE: 04/09/19 AGE: 73 : 47 SEX: M ROOM/BED: D.2107 AUTHOR: BYRON,DOC PHYSICIAN: REFERRING PHYSICIAN: DARREL TOURE DO DATE OF SERVICE: 04/13/19 Discharge Plan Patient Name: ABBY PHILLIPS Facility: [facility]:[place] : 1945 Planned Disposition: Chcf Facility Anticipated Discharge Date: 04/14/19 Discharge Date: Expected LOS: 5 Initial Reviewer: [email or web address] Initial Review Date: 04/09/2019 Generated: 04/13/19 6:15 pm Comments DCP- Discharge Planning Updated by [id number]: Brandin Garcia on 04/13/19 4:[address] Patient Name: ABBY PHILLIPS Encounter No: [id number] : 1945 Primary Insurance: [facility] MEDICARE SOLUTIONS Anticipated DC Date: 04-14-2019 Planned Disposition: Chcf Facility External Planned Provider: [facility], MEDICARE REHAB BED DCP follow-up note: CM RECEIVED DISCHARGE ORDER, SPOKE TO BEDSIDE NURSE WHO INFORMED CM THAT PT WANTS TO SEE CM HE DOES NOT HAVE OXYGEN FOR DISCHARGE HOME TODAY. CM MET WITH PT IN ROOM TO DISCUSS DISCHARGE PLANNING AND NEEDS. CM DISCUSSED AVAILABILITY OF HOME HEALTH, REHAB SERVICES AND MEDICAL EQUIPMENT. PT REPORTS NEEDING OXYGEN FOR DISCHARGE HOME AND HE GETS HIS OXYGEN AT HOME FROM [facility]; PT REPORTS A FRIEND WILL PICK HIM UP FOR DISCHARGE HOME. IMPORTANT MESSAGE FROM MEDICARE PROVIDED AND EXPLAINED. CM CALLED [facility], THEY COULD NOT FIND PT IN THEIR SERVICE. CM CALLED [facility] IN [place], , SPOKE TO CHRIS WHO CONFIRMED PT IS ACTIVE AND WILL ARRANGE PORTABLE OXYGEN TO HOSPITAL FOR PT'S DISCHARAGE HOME. CM RECEIVED CALL FROM PT'S SON, CHARLEY, WHO INFORMED CM THAT PT CALLED FOR A RIDE HOME AND INFORMED CM THAT PT LIVES ALONE AND CANNOT GO HOME AND NEEDS TO RETURN TO REHAB. HE WILL CALL PT IN ROOM TO DISCUSS THIS. CM SPOKE TO PT IN ROOM A FEW MINUTES LATER. PT STATES HE TALKED TO HIS SON, AND HE THINKS HIS SISTER WILL CARE FOR HIM AT HIS HOME. CM CALLED PT'S SISTER, HANDY JONES, , LEFT [facility] ASKING FOR RETURN CALL. CM DISCUSSED PT'S FUNCTIONING. PT REPORTS INABILITY TO WALK BUT CAN TRANSFER FROM BED TO CHAIR WITHOUT ASSISTANCE. PT STATES HE HAS BEEN UNABLE TO WALK FOR ABOUT 6 WEEKS AND THAT IS WHY HE WAS IN REHAB. CM DISCUSSED HAVING SAFE DISCHARGE PLAN, PT AGREES THAT HIS SISTER CANNOT PICK HIM UP IF NEEDED AND PT AGREES TO GO BACK TO REHAB AT [facility]. CHOICE SIGNED. CM CALLED AND CANCELLED PORTABLE OXYGEN DELIVERY WITH [facility] IN [place]. CM CALLED [facility], , SPOKE TO KAM WHO INFORMED CM THAT PT HAS BEEN DECLINING RETURN TO REHAB AND WANTING TO LEAVE HOSPITAL AMA. CM EXPLAINED PT'S CHANGE OF MIND AND REQUESTING FURHTER REHAB. KAM REPORTS SHE NEEDS A REFERRAL AND PHYSICAL WELL OCCUPATIONAL THERAPY EVALUATIONS PT HAS MANAGED MEDICARE AND REQUIRES PRIOR AUTH TO RETURN TO REHAB AT [facility]. ORDERS OBTAINED. CM FAXED REFERRAL TO [facility], . CM WILL FAX OCCUPATIONAL THERAPY EVAUATION TO [facility] WHEN DOCUMENTED. CM WAITING ADMISISON DETERMINATION WELL INSURANCE AUTHORIZATION FOR [facility] REHAB SERVICES. Brandin Garcia, CASE MANAGEMENT DCP- Discharge Planning Updated by [id number]: Lia Gordon on 04/09/19 6:[address] DC PLAN: Return home with his sister. Ambulance to transport. ANTICIPATED DC NEEDS: Refused rehab- unsure about home health. CM met with patient to complete initial dc planning assessment. CM educated patient on the CM role and verbal consent given by patient to complete assessment. CM verified patient's address, phone number, and emergency contact phone numbers. Patient lives at home with his sister. He reports his sister transports him to and from dialysis on ,SAT in [place]. At discharge patient plans to return home with his sister and feels this is a safe discharge. CM discussed availability of home health, rehab services, and medical equipment. He reports he is not able to ambulate now. CM asked about rehab and he said he would not go to rehab. He is unsure if he would want HH at this time. He has however had home health before. Patient denied known discharge needs at this time. Patient reports he will transport home by ambulance time of discharge. CM will continue to follow and will assist as needed with dc plans/needs. Lia Gordon RN, [facility] DCPIA - Discharge Planning Initial Assessment Updated by [email or web address]: Lia Gordon on 04/09/19 7:18 pm * Is the patient Alert and Oriented? Yes * PCP Dr. Jef Erwin * Pharmacy [facility] * Preadmission Environment Home with Family * ADLs Partial Dependent * Partial ADLs (Assistance needed) Ambulation Medication Management Transfers * Equipment Wheelchair * List name and contact numbers for known caregivers / representatives who currently or will assist patient after discharge: Handy Jones - - [phone] * Verbal permission to speak to the caregivers and representatives has been obtained from the patient. Yes * Community resources currently utilized Other * Please name any agencies selected above. Dialysis T-TH-SAT Sister transports him to & from HD. * Additional services required to return to the preadmission environment? No * Can the patient safely return to the preadmission environment? Yes * Has this patient been hospitalized within the prior 30 days at any hospital? No Coverage Notice Reviewer: [id number] Skylar Garcia Notice Issued Date-Time: 04/13/2019 12:45 Notice Type: Patient Choice Letter Notice Delivered To: Patient Relationship to Patient: Soaking Tank Worker Name: Delivery Method: HAND - Hand Delivered Anusha Days: Prior Verbal Notification: Recipient Understood Notice: Yes Recipient Signature: Yes Med Rec Note Co-signed by Attending: Coverage Notice Comment: NO HOME HEALTH PROVIDER PREFERENCE Reviewer: [id number] Skylar Garcia Notice Issued Date-Time: 04/13/2019 12:45 Notice Type: IM Discharge Notice Notice Delivered To: Patient Relationship to Patient: Soaking Tank Worker Name: Delivery Method: HAND - Hand Delivered Anusha Days: Prior Verbal Notification: Recipient Understood Notice: Yes Recipient Signature: Yes Med Rec Note Co-signed by Attending: Coverage Notice Comment: Last DP export: 04/13/19 4:05 p Patient Name: ABBY PHILLIPS Page [id number] at 8193 All edits/amendments must be made on the electronic document DICTATION DATE: 101714 PEARL HAND: APRIL 04/13/191714 RPT#: [id number] DC DATE: STATUS: ADM IN [facility] [address] [place] [address] END OF REPORT
[2019-04-13 17:19] VITALS: BP 154/83
--- NOTE | 2019-04-13 17:43 | NUR ---
OT NOTE: PT COMPLETED BED MOB TASKS WITH ALIREZA Sutton. PT COMPLETED UE AROM AX. PT COMPLETED HYGIENE TASK WITH ALIREZA Sutton. THANK YOU, DEISY COTTON
--- NOTE | 2019-04-13 19:15 | NUR ---
REPORT RECEIVED, WILL CONTINUE POC. PATIENT IS A/OX4, IN BED WATCHING TV. PATIENT HAS RT CHEST HEMOSPLIT. PEG TUBE NOTED TO ABDOMEN. RR LABORED ON 4L O2 VIA NC. NO S/S OF DISTRESS OBSERVED. PATIENT DENIES FURTHER NEEDS AT THIS TIME. CL IN REACH, BED LOCKED AND LOWERED. WILL CTM.
[2019-04-13 20:00] VITALS: BP 173/74
--- NOTE | 2019-04-13 23:58 | NUR ---
PATIENT REQUESTED SOMETHING FOR SLEEP. KARLEY PAGED, ORDER FOR LUNESTA 1MG GIVEN. DOSE ADMINISTERED. WILL CTM.
[2019-04-14] VITALS: BP 143/70
[2019-04-14 04:00] VITALS: BP 159/66
[2019-04-14 05:16] LABS: BASOPHILS 0.1 % (0-2); EOSINOPHILS 1.2 % (0-7); HEMATOCRIT 31.4 % (42.0-54.0); HEMOGLOBIN 9.7 g/dL (13.5-17.5); IMMATURE GRANULOCYTES 0.5 % (0-5); LYMPHOCYTES 15.8 % (15-50); MCHC 30.9 g/dL (31.0-37.0); MCV 84.2 fL (80.0-100.0); MEAN PLATELET VOLUME 10.5 fL (7.4-10.4); MONOCYTES 12.5 % (2-11); NEUTROPHILS 69.9 % (40-80); PLATELET COUNT 422 10x3/uL (130-400); RBC 3.73 10x6/uL (4.20-6.10); RDW 16.8 % (11.5-14.5)
[2019-04-14 05:28] LABS: WBC 13.9 10x3/uL (4.8-10.8)
[2019-04-14 05:43] LABS: ANION GAP 13.1 mmol/L (8-16); CALCIUM 7.8 mg/dL (8.5-10.1); CARBON DIOXIDE 28.1 mmol/L (21.0-32.0); POTASSIUM - SERUM 3.2 mmol/L (3.5-5.1); VANCOMYCIN - RANDOM 11.9 ug/mL (10.0-20.0)
[2019-04-14 06:05] LABS: CREATININE - SERUM 3.7 mg/dL (0.6-1.3)
--- NOTE | 2019-04-14 09:22 | MORECARE ---
CASE MANAGEMENT DISCHARGE SUMMARY PATIENT: ABBY PHILLIPS UNIT: [id number] ADM DATE: 04/09/19 AGE: 73 : 47 SEX: M ROOM/BED: D.2102 AUTHOR: BYRON,NICOLASA PHYSICIAN: REFERRING PHYSICIAN: DARREL TOURE DO DATE OF SERVICE: 04/14/19 Discharge Plan Patient Name: ABBY PHILLIPS Facility: [facility]:[place] : 1945 Planned Disposition: Shelter Facility Anticipated Discharge Date: 04/14/19 Discharge Date: Expected LOS: 5 Initial Reviewer: [id number] Initial Review Date: 04/09/2019 Generated: 04/14/19 10:22 am Comments DCP- Discharge Planning Updated by [email or web address]: Brandin Garcia on 04/14/19 8:[address] Patient Name: ABBY PHILLIPS Encounter No: [id number] : 1945 Primary Insurance: [facility] MEDICARE SOLUTIONS Anticipated DC Date: 04-14-2019 Planned Disposition: Shelter Facility External [facility] BED DCP follow-up note: CM SPOKE TO MAIL TECHNICIAN NURSE WHO INFORMED CM THAT PT WANTS TO SEE CM. CM MET WITH PT IN ROOM, PT STATES HE WANTS TO GO BACK TO [facility] TODAY. CM EXPLAINED DELAY IN INSURANCE AUTHORIZATION AND ASSURED PT THAT CM WAS WORKING FAST POSSIBLE. PT THANKED CM. CM REVIEWED CHART, OCCUPATIONAL THERAPY EVALUATION AND NOTE FROM LAST EVENING TO [facility], . CM WAITING ADMISISON DETERMINATION WELL INSURANCE AUTHORIZATION FOR LONG-TERM REHAB SERVICES. Brandin Garcia, CASE ROXANNA DCP- Discharge Planning Updated by [id number]: Brandin Garcia on 04/13/19 4:[address] Patient Name: ABBY PHILLIPS Encounter No: [id number] : 1945 Primary Insurance: [facility] MEDICARE SOLUTIONS Anticipated DC Date: 04-14-2019 Planned Disposition: Shelter Facility External [facility] MEDICARE REHAB BED DCP follow-up note: CM RECEIVED DISCHARGE ORDER, SPOKE TO BEDSIDE NURSE WHO INFORMED CM THAT PT WANTS TO SEE CM HE DOES NOT HAVE OXYGEN FOR DISCHARGE HOME TODAY. CM MET WITH PT IN ROOM TO DISCUSS DISCHARGE PLANNING AND NEEDS. CM DISCUSSED AVAILABILITY OF HOME HEALTH, REHAB SERVICES AND MEDICAL EQUIPMENT. PT REPORTS NEEDING OXYGEN FOR DISCHARGE HOME AND HE GETS HIS OXYGEN AT HOME FROM [facility]; PT REPORTS A FRIEND WILL PICK HIM UP FOR DISCHARGE HOME. IMPORTANT MESSAGE FROM MEDICARE PROVIDED AND EXPLAINED. CM CALLED [facility], THEY COULD NOT FIND PT IN THEIR SERVICE. CM CALLED [facility] IN [place], , SPOKE TO CHRIS WHO CONFIRMED PT IS ACTIVE AND WILL ARRANGE PORTABLE OXYGEN TO HOSPITAL FOR PT'S DISCHARAGE HOME. CM RECEIVED CALL FROM PT'S SON, CHARLEY, WHO INFORMED CM THAT PT CALLED FOR A RIDE HOME AND INFORMED CM THAT PT LIVES ALONE AND CANNOT GO HOME AND NEEDS TO RETURN TO REHAB. HE WILL CALL PT IN ROOM TO DISCUSS THIS. CM SPOKE TO PT IN ROOM A FEW MINUTES LATER. PT STATES HE TALKED TO HIS SON, AND HE THINKS HIS SISTER WILL CARE FOR HIM AT HIS HOME. CM CALLED PT'S SISTER, HANDY JONES, , LEFT [place] ASKING FOR RETURN CALL. CM DISCUSSED PT'S FUNCTIONING. PT REPORTS INABILITY TO WALK BUT CAN TRANSFER FROM BED TO CHAIR WITHOUT ASSISTANCE. PT STATES HE HAS BEEN UNABLE TO WALK FOR ABOUT 6 WEEKS AND THAT IS WHY HE WAS IN REHAB. CM DISCUSSED HAVING SAFE DISCHARGE PLAN, PT AGREES THAT HIS SISTER CANNOT PICK HIM UP IF NEEDED AND PT AGREES TO GO BACK TO REHAB AT [facility]. CHOICE SIGNED. CM CALLED AND CANCELLED PORTABLE OXYGEN DELIVERY WITH [facility] IN [place]. CM CALLED [facility], , SPOKE TO KAM WHO INFORMED CM THAT PT HAS BEEN DECLINING RETURN TO REHAB AND WANTING TO LEAVE HOSPITAL AMA. CM EXPLAINED PT'S CHANGE OF MIND AND REQUESTING FURHTER REHAB. KAM REPORTS SHE NEEDS A REFERRAL AND PHYSICAL WELL OCCUPATIONAL THERAPY EVALUATIONS PT HAS MANAGED MEDICARE AND REQUIRES PRIOR AUTH TO RETURN TO REHAB AT LONG-TERM. ORDERS OBTAINED. CM FAXED REFERRAL TO [facility], . CM WILL FAX OCCUPATIONAL THERAPY EVAUATION TO [facility] WHEN DOCUMENTED. CM WAITING ADMISISON DETERMINATION WELL INSURANCE AUTHORIZATION FOR LONG-TERM REHAB SERVICES. Brandin Garcia, CASE MANAGEMENT DCP- Discharge Planning Updated by [id number]: Lia Gordon on 04/09/19 6:[address] DC PLAN: Return home with his sister. Ambulance to transport. ANTICIPATED DC NEEDS: Refused rehab- unsure about home health. CM met with patient to complete initial dc planning assessment. CM educated patient on the CM role and verbal consent given by patient to complete assessment. CM verified patient's address, phone number, and emergency contact phone numbers. Patient lives at home with his sister. He reports his sister transports him to and from dialysis on T,TH,SAT in [place]. At discharge patient plans to return home with his sister and feels this is a safe discharge. CM discussed availability of home health, rehab services, and medical equipment. He reports he is not able to ambulate now. CM asked about rehab and he said he would not go to rehab. He is unsure if he would want HH at this time. He has however had home health before. Patient denied known discharge needs at this time. Patient reports he will transport home by ambulance time of discharge. CM will continue to follow and will assist as needed with dc plans/needs. Lia Gordon RN, [facility] DCPIA - Discharge Planning Initial Assessment Updated by [id number]: Lia Gordon on 04/09/19 7:18 pm * Is the patient Alert and Oriented? Yes * PCP Dr. Jef Erwin * Pharmacy [facility] * Preadmission Environment Home with Family * ADLs Partial Dependent * Partial ADLs (Assistance needed) Ambulation Medication Management Transfers * Equipment Wheelchair * List name and contact numbers for known caregivers / representatives who currently or will assist patient after discharge: Handy Jones - sister - [phone] * Verbal permission to speak to the caregivers and representatives has been obtained from the patient. Yes * Community resources currently utilized Other * Please name any agencies selected above. Dialysis T-TH-SAT Sister transports him to & from HD. * Additional services required to return to the preadmission environment? No * Can the patient safely return to the preadmission environment? Yes * Has this patient been hospitalized within the prior 30 days at any hospital? No Coverage Notice Reviewer: [id number] - Brandin Garcia Notice Issued Date-Time: 04/13/2019 12:45 Notice Type: Patient Choice Letter Notice Delivered To: Patient Relationship to Patient: Technical Solutions Engineer Name: Delivery Method: HAND - Hand Delivered Anusha Days: Prior Verbal Notification: Recipient Understood Notice: Yes Recipient Signature: Yes Med Rec Note Co-signed by Attending: Coverage Notice Comment: NO HOME HEALTH PROVIDER PREFERENCE Reviewer: [id number] Skylar Garcia Notice Issued Date-Time: 04/13/2019 12:45 Notice Type: IM Discharge Notice Notice Delivered To: Patient Relationship to Patient: Technical Solutions Engineer Name: Delivery Method: HAND - Hand Delivered Anusha Days: Prior Verbal Notification: Recipient Understood Notice: Yes Recipient Signature: Yes Med Rec Note Co-signed by Attending: Coverage Notice Comment: Last DP export: 04/13/19 4:15 p Patient Name: ABBY PHILLIPS Page [id number] at 0922 All edits/amendments must be made on the electronic document DICTATION DATE: 04/14/19921 INSULATION ESTIMATOR: APRIL 04/14/19921 RPT#: [id number] DC DATE: STATUS: ADM IN [facility] [address] [place] [address] END OF REPORT
[2019-04-14 09:45] VITALS: BP 121/73
[2019-04-14 13:22] VITALS: BP 146/71
--- NOTE | 2019-04-14 14:26 | MORECARE ---
CASE MANAGEMENT DISCHARGE SUMMARY PATIENT: ABBY PHILLIPS UNIT: [id number] ADM DATE: 04/09/19 AGE: 73 : [birth year] SEX: M ROOM/BED: D.0124 AUTHOR: BYRON,DOC PHYSICIAN: REFERRING PHYSICIAN: DARREL TOURE DO DATE OF SERVICE: 04/14/19 Discharge Plan Patient Name: ABBY PHILLIPS Facility: [facility]:[place] : 1945 Planned Disposition: Home Anticipated Discharge Date: 04/14/19 Discharge Date: Expected LOS: 5 Initial Reviewer: [email or web address] Initial Review Date: 04/09/2019 Generated: 04/14/19 3:25 pm Comments DCP- Discharge Planning Updated by [email or web address]: Brandin Garcia on 04/14/19 1:[address] Patient Name: ABBY PHILLIPS Encounter No: [id number] : 1945 Primary Insurance: [facility] MEDICARE SOLUTIONS Anticipated DC Date: 04-14-2019 Planned Disposition: Home DCP follow-up note: CM SPOKE TO PRASHANTH OF [facility], SHE HAS MET WITH PT IN ROOM, HE HAS DECLINED TO GO TO THE FACILITY AND STATED TO HER HE IS GOING HOME, HIS SISTER IS TAKING CARE OF HIM. PT STATES THAT THEY WILL HIRE OTHER CAREGIVERS IF NECESSARY. CM TO FOLLOW UP WITH PT SOON POSSIBLE. Brandin Garcia, CASE MANAGEMENT DCP- Discharge Planning Updated by [id number]: Brandin Garcia on 04/14/19 8:[address] Patient Name: ABBY PHILLIPS Encounter No: [id number] : 1945 Primary Insurance: [facility] MEDICARE SOLUTIONS Anticipated DC Date: 04-14-2019 Planned Disposition: Detention Facility External Planned Provider: [facility], MEDICARE REHAB BED DCP follow-up note: CM SPOKE TO WHOLESALE PARTS SALESPERSON NURSE WHO INFORMED CM THAT PT WANTS TO SEE CM. CM MET WITH PT IN ROOM, PT STATES HE WANTS TO GO BACK TO [facility] TODAY. CM EXPLAINED DELAY IN INSURANCE AUTHORIZATION AND ASSURED PT THAT CM WAS WORKING FAST POSSIBLE. PT THANKED CM. CM REVIEWED CHART, OCCUPATIONAL THERAPY EVALUATION AND NOTE [facility], . CM WAITING ADMISISON DETERMINATION WELL INSURANCE AUTHORIZATION FOR [facility]. Brandin Garcia, CASE MANAGEMENT DCP- Discharge Planning Updated by [id number]: Brandin Garcia on 04/13/19 4:[address] Patient Name: ABBY PHILLIPS Encounter No: [id number] : 1945 Primary Insurance: [facility] MEDICARE SOLUTIONS Anticipated DC Date: 04-14-2019 Planned Disposition: Detention Facility External Planned Provider: [facility], MEDICARE REHAB BED DCP follow-up note: CM RECEIVED DISCHARGE ORDER, SPOKE TO BEDSIDE NURSE WHO INFORMED CM THAT PT WANTS TO SEE CM HE DOES NOT HAVE OXYGEN FOR DISCHARGE HOME TODAY. CM MET WITH PT IN ROOM TO DISCUSS DISCHARGE PLANNING AND NEEDS. CM DISCUSSED AVAILABILITY OF HOME HEALTH, REHAB SERVICES AND MEDICAL EQUIPMENT. PT REPORTS NEEDING OXYGEN FOR DISCHARGE HOME AND HE GETS HIS OXYGEN AT HOME FROM [facility] [place]; PT REPORTS A FRIEND WILL PICK HIM UP FOR DISCHARGE HOME. IMPORTANT MESSAGE FROM MEDICARE PROVIDED AND EXPLAINED. CM CALLED [facility], THEY COULD NOT FIND PT IN THEIR SERVICE. CM CALLED [facility] IN [place], , SPOKE TO CHRIS WHO CONFIRMED PT IS ACTIVE AND WILL ARRANGE PORTABLE OXYGEN TO HOSPITAL FOR PT'S DISCHARAGE HOME. CM RECEIVED CALL FROM PT'S SON, CHARLEY, WHO INFORMED CM THAT PT CALLED FOR A RIDE HOME AND INFORMED CM THAT PT LIVES ALONE AND CANNOT GO HOME AND NEEDS TO RETURN TO REHAB. HE WILL CALL PT IN ROOM TO DISCUSS THIS. CM SPOKE TO PT IN ROOM A FEW MINUTES LATER. PT STATES HE TALKED TO HIS SON, AND HE THINKS HIS SISTER WILL CARE FOR HIM AT HIS HOME. CM CALLED PT'S SISTER, HANDY JONES, , LEFT [place] ASKING FOR RETURN CALL. CM DISCUSSED PT'S FUNCTIONING. PT REPORTS INABILITY TO WALK BUT CAN TRANSFER FROM BED TO CHAIR WITHOUT ASSISTANCE. PT STATES HE HAS BEEN UNABLE TO WALK FOR ABOUT 6 WEEKS AND THAT IS WHY HE WAS IN REHAB. CM DISCUSSED HAVING SAFE DISCHARGE PLAN, PT AGREES THAT HIS SISTER CANNOT PICK HIM UP IF NEEDED AND PT AGREES TO GO BACK TO REHAB AT [facility]. CHOICE SIGNED. CM CALLED AND CANCELLED PORTABLE OXYGEN DELIVERY WITH [facility] IN [place]. CM CALLED [facility], , SPOKE TO KAM WHO INFORMED CM THAT PT HAS BEEN DECLINING RETURN TO REHAB AND WANTING TO LEAVE HOSPITAL AMA. CM EXPLAINED PT'S CHANGE OF MIND AND REQUESTING FURHTER REHAB. KAM REPORTS SHE NEEDS A REFERRAL AND PHYSICAL WELL OCCUPATIONAL THERAPY EVALUATIONS PT HAS MANAGED MEDICARE AND REQUIRES PRIOR AUTH TO RETURN TO REHAB AT [facility]. ORDERS OBTAINED. CM FAXED REFERRAL TO [facility], . CM WILL FAX OCCUPATIONAL THERAPY EVAUATION TO [facility] WHEN DOCUMENTED. CM WAITING ADMISISON DETERMINATION WELL INSURANCE AUTHORIZATION FOR [facility] RE[facility] SERVICES. Brandin Garcia, CASE MANAGEMENT DCP- Discharge Planning Updated by [id number]: Lia Gordon on 04/09/19 6:[address] DC PLAN: Return home with his sister. Ambulance to transport. ANTICIPATED DC NEEDS: Refused rehab- unsure about home health. CM met with patient to complete initial dc planning assessment. CM educated patient on the CM role and verbal consent given by patient to complete assessment. CM verified patient's address, phone number, and emergency contact phone numbers. Patient lives at home with his sister. He reports his sister transports him to and from dialysis on ,SAT in [place]. At discharge patient plans to return home with his sister and feels this is a safe discharge. CM discussed availability of home health, rehab services, and medical equipment. He reports he is not able to ambulate now. CM asked about rehab and he said he would not go to rehab. He is unsure if he would want HH at this time. He has however had home health before. Patient denied known discharge needs at this time. Patient reports he will transport home by ambulance time of discharge. CM will continue to follow and will assist as needed with dc plans/needs. Lia Gordon RN, [facility] DCPIA - Discharge Planning Initial Assessment Updated by [id number]: Lia Gordon on 04/09/19 7:18 pm * Is the patient Alert and Oriented? Yes * PCP Dr. Jef Erwin * Pharmacy [facility] * Preadmission Environment Home with Family * ADLs Partial Dependent * Partial ADLs (Assistance needed) Ambulation Medication Management Transfers * Equipment Wheelchair * List name and contact numbers for known caregivers / representatives who currently or will assist patient after discharge: Handy Jones - sister - [phone] * Verbal permission to speak to the caregivers and representatives has been obtained from the patient. Yes * Community resources currently utilized Other * Please name any agencies selected above. Dialysis [place] Sister transports him to & from HD. * Additional services required to return to the preadmission environment? No * Can the patient safely return to the preadmission environment? Yes * Has this patient been hospitalized within the prior 30 days at any hospital? No Coverage Notice Reviewer: [id number] Garcia Notice Issued Date-Time: 04/13/2019 12:45 Notice Type: Patient Choice Letter Notice Delivered To: Patient Relationship to Patient: Mandarin Chinese Teacher Name: Delivery Method: HAND - Hand Delivered Anusha Days: Prior Verbal Notification: Recipient Understood Notice: Yes Recipient Signature: Yes Med Rec Note Co-signed by Attending: Coverage Notice Comment: NO HOME HEALTH PROVIDER PREFERENCE Reviewer: [id number] Garcia Notice Issued Date-Time: 04/13/2019 12:45 Notice Type: IM Discharge Notice Notice Delivered To: Patient Relationship to Patient: Mandarin Chinese Teacher Name: Delivery Method: HAND - Hand Delivered Anusha Days: Prior Verbal Notification: Recipient Understood Notice: Yes Recipient Signature: Yes Med Rec Note Co-signed by Attending: Coverage Notice Comment: Last DP export: 04/14/19 8:22 a Patient Name: ABBY PHILLIPS Page [id number] at 1426 All edits/amendments must be made on the electronic document DICTATION DATE: 04/14/19 142 CORE CLEANER: APRIL 04/14/19 142 RPT#: [id number] DC DATE: STATUS: ADM IN [facility] [address] [place] [address] END OF REPORT
--- NOTE | 2019-04-14 16:11 | MORECARE ---
CASE MANAGEMENT DISCHARGE SUMMARY PATIENT: ABBY PHILLIPS UNIT: [id number] ADM DATE: 04/09/19 AGE: 73 : [birth year] SEX: M ROOM/BED: D.6287 AUTHOR: BYRON,DOC PHYSICIAN: REFERRING PHYSICIAN: DARREL TOURE DO DATE OF SERVICE: 04/14/19 Discharge Plan Patient Name: ABBY PHILLIPS Facility: [facility]:[place] : 1945 Planned Disposition: Home Anticipated Discharge Date: 04/14/19 Discharge Date: Expected LOS: 5 Initial Reviewer: [id number] Initial Review Date: 04/09/2019 Generated: 04/14/19 5:10 pm Comments DCP- Discharge Planning Updated by [id number]: Aj Millan on 04/14/19 3:[address] Patient Name: ABBY PHILLIPS Encounter No: [id number] : 1945 Primary Insurance: [facility] MEDICARE SOLUTIONS Anticipated DC Date: 04-14-2019 Planned Disposition: Home DCP follow-up note: CM SPOKE TO [facility]ASH[facility]TH OF [facility], SHE HAS MET WITH PT IN ROOM, HE HAS DECLINED TO GO TO THE FACILITY AND STATED TO HER HE IS GOING HOME, HIS SISTER IS TAKING CARE OF HIM. PT STATES THAT THEY WILL HIRE OTHER CAREGIVERS IF NECESSARY. CM TO FOLLOW UP WITH PT SOON POSSIBLE. Aj Millan, CASE MANAGEMENT Appended by Aj Millan on 04/14/2019 16:05 CDT: CM MET WITH PT IN DIALYSIS, THERE WERE NO OTHER PATIENTS THERE. CM DISCUSSED DISCHARGE PLANNING. PT REPORTS HE IS GOING HOME, NOT TO REHAB AND HE WANTS HOME HEALTH. PT INSISTS THAT HE HAS "SOMEONE" TO PICK HIM UP AND THAT HIS SISTER WILL BE HOME TO CARE FOR HIM AND THAT THEY WILL HIRE PERSONAL CARE IF NEEDED. CM INFORMED PT THAT [facility] WILL NOT ACCEPT PT BACK IF HE CHANGES HIS MIND. PT REPORTS UNDERSTANDING AND AGAIN STATES HE DOES NOT WANT TO RETURN. CM EXPLAINED THAT PT WAS DISCHARGED YESTERDAY AND HE NEEDS TO GET HIS RIDE HERE TO PICK HIM UP SOON POSSIBLE TODAY. CM EXPLAINED THAT THE HOSPITAL IS NOT A HOTEL AND THAT INSURANCE WILL NOT PAY FOR HIS STAY WHEN MEDICALLY STABLE. PT REPORTS UNDERSTANDING. PT REPORTS ABILITY TO USE THE PHONE IN THE ROOM AND HAS BEEN TALKING TO FAMILY AND FRIENDS. CM ADVISED PT THAT HIS SISTER HAS NOT CALLED CM BACK. PT ASSURES CM THAT SHE HAS AGREED TO ASSIST HIM AND HE IS GOING HOME. CM TO ARRANGE PORTABLE OXYGEN FROM [facility] AND HOME HEALTH FOR DISCHARGE HOME TODAY PREVIOUSLY ORDERED. AJ MILLAN CASE MANAGEMENT DCP- Discharge Planning Updated by [id number]: Aj Millan on 04/14/19 8:[address] Patient Name: ABBY PHILLIPS Encounter No: [id number] : 1945 Primary Insurance: [facility] MEDICARE SOLUTIONS Anticipated DC Date: 04-14-2019 Planned Disposition: [facility]sp Facility External Planned Provider: [facility], MEDICARE REHAB BED DCP follow-up note: CM SPOKE TO PARKING LOT SUPERVISOR NURSE WHO INFORMED CM THAT PT WANTS TO SEE CM. CM MET WITH PT IN ROOM, PT STATES HE WANTS TO GO BACK TO [facility] TODAY. CM EXPLAINED DELAY IN INSURANCE AUTHORIZATION AND ASSURED PT THAT CM WAS WORKING FAST POSSIBLE. PT THANKED CM. CM REVIEWED CHART, OCCUPATIONAL THERAPY EVALUATION AND NOTE FROM LAST EVENING TO [facility], . CM WAITING ADMISISON DETERMINATION WELL INSURANCE AUTHORIZATION FOR CUSTODIAL REHAB SERVICES. Aj Millan CASE ROXANNA DCP- Discharge Planning Updated by [id number]: Aj Millan on 04/13/19 4:[address] Patient Name: ABBY PHILLIPS Encounter No: [id number] : 1945 Primary Insurance: [facility] MEDICARE SOLUTIONS Anticipated DC Date: 04-14-2019 Planned Disposition: Usp Facility External Planned Provider: [facility], MEDICARE REHAB BED DCP follow-up note: CM RECEIVED DISCHARGE ORDER, SPOKE TO BEDSIDE NURSE WHO INFORMED CM THAT PT WANTS TO SEE CM HE DOES NOT HAVE OXYGEN FOR DISCHARGE HOME TODAY. CM MET WITH PT IN ROOM TO DISCUSS DISCHARGE PLANNING AND NEEDS. CM DISCUSSED AVAILABILITY OF HOME HEALTH, REHAB SERVICES AND MEDICAL EQUIPMENT. PT REPORTS NEEDING OXYGEN FOR DISCHARGE HOME AND HE GETS HIS OXYGEN AT HOME FROM [facility]; PT REPORTS A FRIEND WILL PICK HIM UP FOR DISCHARGE HOME. IMPORTANT MESSAGE FROM MEDICARE PROVIDED AND EXPLAINED. CM CALLED [facility], THEY COULD NOT FIND PT IN THEIR SERVICE. CM CALLED [facility] IN [place], , SPOKE TO CHRIS WHO CONFIRMED PT IS ACTIVE AND WILL ARRANGE PORTABLE OXYGEN TO HOSPITAL FOR PT'S DISCHARAGE HOME. CM RECEIVED CALL FROM PT'S SON, CHARLEY, WHO INFORMED CM THAT PT CALLED FOR A RIDE HOME AND INFORMED CM THAT PT LIVES ALONE AND CANNOT GO HOME AND NEEDS TO RETURN TO REHAB. HE WILL CALL PT IN ROOM TO DISCUSS THIS. CM SPOKE TO PT IN ROOM A FEW MINUTES LATER. PT STATES HE TALKED TO HIS SON, AND HE THINKS HIS SISTER WILL CARE FOR HIM AT HIS HOME. CM CALLED PT'S SISTER, MARIAH JONES, , LEFT [facility] ASKING FOR RETURN CALL. CM DISCUSSED PT'S FUNCTIONING. PT REPORTS INABILITY TO WALK BUT CAN TRANSFER FROM BED TO CHAIR WITHOUT ASSISTANCE. PT STATES HE HAS BEEN UNABLE TO WALK FOR ABOUT 6 WEEKS AND THAT IS WHY HE WAS IN REHAB. CM DISCUSSED HAVING SAFE DISCHARGE PLAN, PT AGREES THAT HIS SISTER CANNOT PICK HIM UP IF NEEDED AND PT AGREES TO GO BACK TO REHAB AT [facility]. CHOICE SIGNED. CM CALLED AND CANCELLED PORTABLE OXYGEN DELIVERY WITH [facility] IN [place]. CM CALLED [facility], , SPOKE TO KAM WHO INFORMED CM THAT PT HAS BEEN DECLINING RETURN TO REHAB AND WANTING TO LEAVE HOSPITAL AMA. CM EXPLAINED PT'S CHANGE OF MIND AND REQUESTING FURHTER REHAB. KAM REPORTS SHE NEEDS A REFERRAL AND PHYSICAL WELL OCCUPATIONAL THERAPY EVALUATIONS PT HAS MANAGED MEDICARE AND REQUIRES PRIOR AUTH TO RETURN TO REHAB AT [facility]UST[facility]. ORDERS OBTAINED. CM FAXED REFERRAL TO [facility], . CM WILL FAX OCCUPATIONAL THERAPY EVAUATION TO [facility] WHEN DOCUMENTED. CM WAITING ADMISISON DETERMINATION WELL INSURANCE AUTHORIZATION FOR CUSTODIAL REHAB SERVICES. Aj Millan, CASE MANAGEMENT DCP- Discharge Planning Updated by [id number]: Lia Gordon on 04/09/19 6:[address] DC PLAN: Return home with his sister. Ambulance to transport. ANTICIPATED DC NEEDS: Refused rehab- unsure about home health. CM met with patient to complete initial dc planning assessment. CM educated patient on the CM role and verbal consent given by patient to complete assessment. CM verified patient's address, phone number, and emergency contact phone numbers. Patient lives at home with his sister. He reports his sister transports him to and from dialysis on T,TH,SAT in [place]. At discharge patient plans to return home with his sister and feels this is a safe discharge. CM discussed availability of home health, rehab services, and medical equipment. He reports he is not able to ambulate now. CM asked about rehab and he said he would not go to rehab. He is unsure if he would want HH at this time. He has however had home health before. Patient denied known discharge needs at this time. Patient reports he will transport home by ambulance time of discharge. CM will continue to follow and will assist as needed with dc plans/needs. Lia Gordon RN, [facility] DCPIA - Discharge Planning Initial Assessment Updated by [id number]: Lia Gordon on 04/09/19 7:18 pm * Is the patient Alert and Oriented? Yes * PCP Dr. Jef Erwin * Pharmacy [facility] * Preadmission Environment Home with Family * ADLs Partial Dependent * Partial ADLs (Assistance needed) Ambulation Medication Management Transfers * Equipment Wheelchair * List name and contact numbers for known caregivers / representatives who currently or will assist patient after discharge: Mariah Jones - sister - [phone] * Verbal permission to speak to the caregivers and representatives has been obtained from the patient. Yes * Community resources currently utilized Other * Please name any agencies selected above. Dialysis [facility] Sister transports him to & from HD. * Additional services required to return to the preadmission environment? No * Can the patient safely return to the preadmission environment? Yes * Has this patient been hospitalized within the prior 30 days at any hospital? No Coverage Notice Reviewer: [id number] Skylar Millan Notice Issued Date-Time: 04/13/2019 12:45 Notice Type: Patient Choice Letter Notice Delivered To: Patient Relationship to Patient: First Aid Nurse Name: Delivery Method: HAND - Hand Delivered Anusha Days: Prior Verbal Notification: Recipient Understood Notice: Yes Recipient Signature: Yes Med Rec Note Co-signed by Attending: Coverage Notice Comment: NO HOME HEALTH PROVIDER PREFERENCE Reviewer: [id number] Skylar Millan Notice Issued Date-Time: 04/13/2019 12:45 Notice Type: IM Discharge Notice Notice Delivered To: Patient Relationship to Patient: First Aid Nurse Name: Delivery Method: HAND - Hand Delivered Anusha Days: Prior Verbal Notification: Recipient Understood Notice: Yes Recipient Signature: Yes Med Rec Note Co-signed by Attending: Coverage Notice Comment: Last DP export: 04/14/19 1:26 p Patient Name: ABBY PHILLIPS Page [id number] at 1611 All edits/amendments must be made on the electronic document DICTATION DATE: 04/14/191609 REAL ESTATE CLOSER: APRIL 04/14/191609 RPT#: [id number] DC DATE: STATUS: ADM IN [facility] [address] [place] [address] END OF REPORT
--- NOTE | 2019-04-14 16:43 | NUR ---
BACK FROM DIALYSIS. 1999 L REMOVED. PT REFUSED TO EAT DINNER. BS WAS 224 BUT DUE TO NOT EATING- INSULIN NOT GIVEN.
--- NOTE | 2019-04-14 17:09 | MORECARE ---
CASE MANAGEMENT DISCHARGE SUMMARY PATIENT: ABBY PHILLIPS UNIT: [id number] ADM DATE: 04/09/19 AGE: 73 : [birth year] SEX: M ROOM/BED: D.2106 AUTHOR: BYRON,DOC PHYSICIAN: REFERRING PHYSICIAN: DARREL TOURE DO DATE OF SERVICE: 04/14/19 Discharge Plan Patient Name: ABBY PHILLIPS Facility: [facility]:[place] : 1945 Planned Disposition: Home with Home Health Anticipated Discharge Date: 04/14/19 Discharge Date: Expected LOS: 5 Initial Reviewer: [id number] Initial Review Date: 04/09/2019 Generated: 04/14/19 6:08 pm Comments DCP- Discharge Planning Updated by [id number]: Aj Millan on 04/14/19 3:[address] Patient Name: ABBY PHILLIPS Encounter No: [id number] : 1945 Primary Insurance: [facility] MEDICARE SOLUTIONS Anticipated DC Date: 04-14-2019 Planned Disposition: Home DCP follow-up note: CM SPOKE TO PRASHANTH OF [facility], SHE HAS MET WITH PT IN ROOM, HE HAS DECLINED TO GO TO THE FACILITY AND STATED TO HER HE IS GOING HOME, HIS SISTER IS TAKING CARE OF HIM. PT STATES THAT THEY WILL HIRE OTHER CAREGIVERS IF NECESSARY. CM TO FOLLOW UP WITH PT SOON POSSIBLE. Aj Millan, CASE MANAGEMENT Appended by Aj Millan on 04/14/2019 16:05 CDT: CM MET WITH PT IN DIALYSIS, THERE WERE NO OTHER PATIENTS THERE. CM DISCUSSED DISCHARGE PLANNING. PT REPORTS HE IS GOING HOME, NOT TO REHAB AND HE WANTS HOME HEALTH. PT INSISTS THAT HE HAS "SOMEONE" TO PICK HIM UP AND THAT HIS SISTER WILL BE HOME TO CARE FOR HIM AND THAT THEY WILL HIRE PERSONAL CARE IF NEEDED. CM INFORMED PT THAT [facility] WILL NOT ACCEPT PT BACK IF HE CHANGES HIS MIND. PT REPORTS UNDERSTANDING AND AGAIN STATES HE DOES NOT WANT TO RETURN. CM EXPLAINED THAT PT WAS DISCHARGED YESTERDAY AND HE NEEDS TO GET HIS RIDE HERE TO PICK HIM UP SOON POSSIBLE TODAY. CM EXPLAINED THAT THE HOSPITAL IS NOT A HOTEL AND THAT INSURANCE WILL NOT PAY FOR HIS STAY WHEN MEDICALLY STABLE. PT REPORTS UNDERSTANDING. PT REPORTS ABILITY TO USE THE PHONE IN THE ROOM AND HAS BEEN TALKING TO FAMILY AND FRIENDS. CM ADVISED PT THAT HIS SISTER HAS NOT CALLED CM BACK. PT ASSURES CM THAT SHE HAS AGREED TO ASSIST HIM AND HE IS GOING HOME. CM TO ARRANGE PORTABLE OXYGEN FROM [facility] FOR DISCHARGE HOME TODAY PREVIOUSLY ORDERED. AJ MILLAN CASE MANAGEMENT DCP- Discharge Planning Updated by [id number]: Aj Millan on 04/14/19 8:[address] Patient Name: ABBY PHILLIPS Encounter No: [id number] : 1945 Primary Insurance: [facility] MEDICARE SOLUTIONS Anticipated DC Date: 04-14-2019 Planned Disposition: Shelter Facility External Planned Provider: [facility], MEDICARE REHAB BED DCP follow-up note: CM SPOKE TO FINANCIAL SYSTEMS DIRECTOR NURSE WHO INFORMED CM THAT PT WANTS TO SEE CM. CM MET WITH PT IN ROOM, PT STATES HE WANTS TO GO BACK TO [facility] TODAY. CM EXPLAINED DELAY IN INSURANCE AUTHORIZATION AND ASSURED PT THAT CM WAS WORKING FAST POSSIBLE. PT THANKED CM. CM REVIEWED CHART, OCCUPATIONAL THERAPY EVALUATION AND NOTE FROM LAST EVENING TO [facility], . CM WAITING ADMISISON DETERMINATION WELL INSURANCE AUTHORIZATION FOR [facility]. Aj Millan CASE ROXANNA DCP- Discharge Planning Updated by [id number]: Aj Millan on 04/13/19 4:[address] Patient Name: ABBY PHILLIPS Encounter No: [id number] : 1945 Primary Insurance: [facility] MEDICARE SOLUTIONS Anticipated DC Date: 04-14-2019 Planned Disposition: Shelter Facility External Planned Provider: [facility], MEDICARE REHAB BED DCP follow-up note: CM RECEIVED DISCHARGE ORDER, SPOKE TO BEDSIDE NURSE WHO INFORMED CM THAT PT WANTS TO SEE CM HE DOES NOT HAVE OXYGEN FOR DISCHARGE HOME TODAY. CM MET WITH PT IN ROOM TO DISCUSS DISCHARGE PLANNING AND NEEDS. CM DISCUSSED AVAILABILITY OF HOME HEALTH, REHAB SERVICES AND MEDICAL EQUIPMENT. PT REPORTS NEEDING OXYGEN FOR DISCHARGE HOME AND HE GETS HIS OXYGEN AT HOME FROM [facility]; PT REPORTS A FRIEND WILL PICK HIM UP FOR DISCHARGE HOME. IMPORTANT MESSAGE FROM MEDICARE PROVIDED AND EXPLAINED. CM CALLED [facility], THEY COULD NOT FIND PT IN THEIR SERVICE. CM CALLED [facility] IN [place], , SPOKE TO CHRIS WHO CONFIRMED PT IS ACTIVE AND WILL ARRANGE PORTABLE OXYGEN TO HOSPITAL FOR PT'S DISCHARAGE HOME. CM RECEIVED CALL FROM PT'S SON, CHARLEY, WHO INFORMED CM THAT PT CALLED FOR A RIDE HOME AND INFORMED CM THAT PT LIVES ALONE AND CANNOT GO HOME AND NEEDS TO RETURN TO REHAB. HE WILL CALL PT IN ROOM TO DISCUSS THIS. CM SPOKE TO PT IN ROOM A FEW MINUTES LATER. PT STATES HE TALKED TO HIS SON, AND HE THINKS HIS SISTER WILL CARE FOR HIM AT HIS HOME. CM CALLED PT'S SISTER, MARIAH JONES, , [place] [facility] [place] CALL. CM DISCUSSED PT'S FUNCTIONING. PT REPORTS INABILITY TO WALK BUT CAN TRANSFER FROM BED TO CHAIR WITHOUT ASSISTANCE. PT STATES HE HAS BEEN UNABLE TO WALK FOR ABOUT 6 WEEKS AND THAT IS WHY HE WAS IN REHAB. CM DISCUSSED HAVING SAFE DISCHARGE PLAN, PT AGREES THAT HIS SISTER CANNOT PICK HIM UP IF NEEDED AND PT AGREES TO GO BACK TO REHAB AT [facility]. CHOICE SIGNED. CM CALLED AND CANCELLED PORTABLE OXYGEN DELIVERY WITH [facility] IN [place]. CM CALLED [facility], , SPOKE TO KAM WHO INFORMED CM THAT PT HAS BEEN DECLINING RETURN TO REHAB AND WANTING TO LEAVE HOSPITAL AMA. CM EXPLAINED PT'S CHANGE OF MIND AND REQUESTING [facility] REHAB. KAM REPORTS SHE NEEDS A REFERRAL AND PHYSICAL WELL OCCUPATIONAL THERAPY EVALUATIONS PT HAS MANAGED MEDICARE AND REQUIRES PRIOR AUTH TO RETURN TO REHAB AT [facility]. ORDERS OBTAINED. CM FAXED REFERRAL TO [facility], . CM WILL FAX OCCUPATIONAL THERAPY EVAUATION TO [facility] WHEN DOCUMENTED. CM WAITING ADMISISON DETERMINATION WELL INSURANCE AUTHORIZATION FOR [facility] SERVICES. Aj Millan, CASE MANAGEMENT DCP- Discharge Planning Updated by [id number]: Lia Gordon on 04/09/19 6:[address] DC PLAN: Return home with his sister. Ambulance to transport. ANTICIPATED DC NEEDS: Refused rehab- unsure about home health. CM met with patient to complete initial dc planning assessment. CM educated patient on the CM role and verbal consent given by patient to complete assessment. CM verified patient's address, phone number, and emergency contact phone numbers. Patient lives at home with his sister. He reports his sister transports him to and from dialysis on T,TH,SAT in [place]. At discharge patient plans to return home with his sister and feels this is a safe discharge. CM discussed availability of home health, rehab services, and medical equipment. He reports he is not able to ambulate now. CM asked about rehab and he said he would not go to rehab. He is unsure if he would want HH at this time. He has however had home health before. Patient denied known discharge needs at this time. Patient reports he will transport home by ambulance time of discharge. CM will continue to follow and will assist as needed with dc plans/needs. Lia Gordon RN, [facility] DCPIA - Discharge Planning Initial Assessment Updated by [id number]: Lia Gordon on 04/09/19 7:18 pm * Is the patient Alert and Oriented? Yes * PCP Dr. Jef Erwin * [facility] * Preadmission Environment Home with Family * ADLs Partial Dependent * Partial ADLs (Assistance needed) Ambulation Medication Management Transfers * Equipment Wheelchair * List name and contact numbers for known caregivers / representatives who currently or will assist patient after discharge: Mariah Jones - sister - [phone] * Verbal permission to speak to the caregivers and representatives has been obtained from the patient. Yes * Community resources currently utilized Other * Please name any agencies selected above. Dialysis T-TH-SAT Sister transports him to & from HD. * Additional services required to return to the preadmission environment? No * Can the patient safely return to the preadmission environment? Yes * Has this patient been hospitalized within the prior 30 days at any hospital? No Coverage Notice Reviewer: [id number] Skylar Millan Notice Issued Date-Time: 04/13/2019 12:45 Notice Type: Patient Choice Letter Notice Delivered To: Patient Relationship to Patient: Cyber Workforce Developer And Manager Name: Delivery Method: HAND - Hand Delivered Anusha Days: Prior Verbal Notification: Recipient Understood Notice: Yes Recipient Signature: Yes Med Rec Note Co-signed by Attending: Coverage Notice Comment: NO HOME HEALTH PROVIDER PREFERENCE Reviewer: [id number] Skylar Millan Notice Issued Date-Time: 04/13/2019 12:45 Notice Type: IM Discharge Notice Notice Delivered To: Patient Relationship to Patient: Cyber Workforce Developer And Manager Name: Delivery Method: HAND - Hand Delivered Anusha Days: Prior Verbal Notification: Recipient Understood Notice: Yes Recipient Signature: Yes Med Rec Note Co-signed by Attending: Coverage Notice Comment: Last DP export: 04/14/19 3:11 p Patient Name: ABBY PHILLIPS Page 42531 at 1709 All edits/amendments must be made on the electronic document DICTATION DATE: 04/14/191707 COMMERCIAL ACCOUNT OFFICER: APRIL 04/14/191707 RPT#: [id number] DC DATE: STATUS: ADM IN [facility] [address] [place] [address] END OF REPORT
--- NOTE | 2019-04-14 17:17 | MORECARE ---
CASE MANAGEMENT DISCHARGE SUMMARY PATIENT: ABBY PHILLIPS UNIT: [id number] ADM DATE: 04/09/19 AGE: 73 : [birth year] SEX: M ROOM/BED: D.210 AUTHOR: BYRON,DOC PHYSICIAN: REFERRING PHYSICIAN: DARREL TOURE DO DATE OF SERVICE: 04/14/19 Discharge Plan Patient Name: ABBY PHILLIPS Facility: [facility]:[place] : 1945 Planned Disposition: Home with Home Health Anticipated Discharge Date: 04/14/19 Discharge Date: Expected LOS: 5 Initial Reviewer: [id number] Initial Review Date: 04/09/2019 Generated: 04/14/19 6:17 pm Comments DCP- Discharge Planning Updated by [id number]: Aj Millan on 04/14/19 4:[address] Patient Name: ABBY PHILLIPS Encounter No: [id number] : 1945 Primary Insurance: [facility] MEDICARE SOLUTIONS Anticipated DC Date: 04-14-2019 Planned Disposition: Home with Home Health External Planned Provider: [facility] DCP follow-up note: CM CALLED [facility] IN [place], , SPOKE TO CINTHYA WHO CONFIRMED PT IS ACTIVE AND WILL ARRANGE PORTABLE OXYGEN TO HOSPITAL FOR PT'S DISCHARAGE HOME TODAY. CM SPOKE TO PT IN ROOM. PT STILL INSISTANT ON GOING HOME, REFUSES ANY REHAB PLACEMENT. PT WILL ACCEPT HOME HEALTH. CHOICE LISTING GIVEN. PT HAS NO PREFERENCE ON PROVIDER. CHOICE LETTER SIGNED BY PT. PT REPORTS HE HAS CALLED HIS SON AND IS WORKING ON TRANSPORTATION NOW. OXYGEN HAS BEEN DELIVERED TO ROOM FROM [facility], RASHIDA FROM [employer] INSTRUCTED PT ON USE OF OXYGEN, PT REPORTS HAVING OXYGEN AT HOME AND KNOWS HOW TO USE THE E-TANK. CM [facility]ED [facility], , SPOKE TO APPEALS AND GENERALIST CLERK NURSE HERNANDEZ WHO INFORMED CM THAT THEY WILL ACCEPT PT BUT CAUTIONED THAT THEY WILL ASSESS PT AND IF HE DOES NOT HAVE 24 HOUR CAREGIVER, THEY WILL NOT SEE HIM AND MAY REPORT TO ADULT PROTECTIVE SERVICES. CM NOTIFIED PT WHO IS IN AGREEMENT AND ASSURES CM THAT HE HAS 24 HOUR CAREGIVER WITH HIS SISTER AND WILL HIRE SOMEONE IF NECESSARY. PT STATES THAT CM CAN TALK TO HIS SON, CHARLEY, REGARDING HIS CARE AND DISCHARGE PLAN. CM FAXED HOME HEALTH REFERRAL TO [facility] AT [phone]. CM RECEIVED CALL FROM CHARLEY PHILLIPS, , WHO HAS TALKED TO PT AND INFORMED CM THAT PT'S SISTER IS NOT ABLE TO TAKE CARE OF PT AND HE IS NOT GOING TO LEAD CARE MANAGER PT AND TAKE PT HOME. CM EXPLAINED THAT PT HAS DECLINED REHAB AND PT IS NOT DEEMED INCOMPETENT TO MAKE DECISIONS, PT HAS NO GUARDIAN AND CM CANNOT MAKE PT GO TO REHAB. CM EXPLAINED THAT PT IS FREE TO GO IF HE CAN FIND SOMEONE TO PICK HIM UP. CM EXPLAINED THAT HOME HEALTH WILL ASSESS PT AT HOME AND IF NOT SAFE DISCHARGE PLAN, IF PT DOES NOT HAVE 24 HOUR CARE, HOME HEALTH WILL NOT SEE PT AND MAY REPORT TO ADULT PROTECTIVE SERVICES. CHARLEY WILL CALL OTHER FAMILY MEMBERS TO SPEAK TO THEM REGARDING ASSISTANCE WITH PT AND DISCHARGE PLAN. CM INFORMED PT OF PHONE CALL. PT REPORTS HE WILL FIND SOMEONE TO PICK HIM UP TODAY AND THANKED CM FOR MAKING ARRANGEMENTS FOR HIM. CYLINDER BATCHER NURSE NOTIFIED. Aj Millan, CASE MANAGEMENT DCP- Discharge Planning Updated by [id number]: Aj Millan on 04/14/19 3:[address] Patient Name: ABBY PHILLIPS Encounter No: [id number] : 1945 Primary Insurance: [facility] MEDICARE SOLUTIONS Anticipated DC Date: 04-14-2019 Planned Disposition: Home DCP follow-up note: CM SPOKE TO PRASHANTH OF [facility], SHE HAS MET WITH PT IN ROOM, HE HAS DECLINED TO GO TO THE FACILITY AND STATED TO HER HE IS GOING HOME, HIS SISTER IS TAKING CARE OF HIM. PT STATES THAT THEY WILL HIRE OTHER CAREGIVERS IF NECESSARY. CM TO FOLLOW UP WITH PT SOON POSSIBLE. Aj Millan, CASE MANAGEMENT Appended by Aj Millan on 04/14/2019 16:05 CDT: CM MET WITH PT IN DIALYSIS, THERE WERE NO OTHER PATIENTS THERE. CM DISCUSSED DISCHARGE PLANNING. PT REPORTS HE IS GOING HOME, NOT TO REHAB AND HE WANTS HOME HEALTH. PT INSISTS THAT HE HAS "SOMEONE" TO PICK HIM UP AND THAT HIS SISTER WILL BE HOME TO CARE FOR HIM AND THAT THEY WILL HIRE PERSONAL CARE IF NEEDED. CM INFORMED PT THAT [facility] WILL NOT ACCEPT PT BACK IF HE CHANGES HIS MIND. PT REPORTS UNDERSTANDING AND AGAIN STATES HE DOES NOT WANT TO RETURN. CM EXPLAINED THAT PT WAS DISCHARGED YESTERDAY AND HE NEEDS TO GET HIS RIDE HERE TO PICK HIM UP SOON POSSIBLE TODAY. CM EXPLAINED THAT THE HOSPITAL IS NOT A HOTEL AND THAT INSURANCE WILL NOT PAY FOR HIS STAY WHEN MEDICALLY STABLE. PT REPORTS UNDERSTANDING. PT REPORTS ABILITY TO USE THE PHONE IN THE ROOM AND HAS BEEN TALKING TO FAMILY AND FRIENDS. CM ADVISED PT THAT HIS SISTER HAS NOT CALLED CM BACK. PT ASSURES CM THAT SHE HAS AGREED TO ASSIST HIM AND HE IS GOING HOME. CM TO ARRANGE PORTABLE OXYGEN FROM [facility] FOR DISCHARGE HOME TODAY PREVIOUSLY ORDERED. AJ MILLAN CASE MANAGEMENT DCP- Discharge Planning Updated by [id number]: Aj Millan on 04/14/19 8:[address] Patient Name: ABBY PHILLIPS Encounter No: [id number] : 1945 Primary Insurance: [facility] MEDICARE SOLUTIONS Anticipated DC Date: 04-14-2019 Planned Disposition: Snf Facility External Planned Provider[facility], MEDICARE REHAB BED DCP follow-up note: CM SPOKE TO CREDIT RATING INSPECTOR NURSE WHO INFORMED CM THAT PT WANTS TO SEE CM. CM MET WITH PT IN ROOM, PT STATES HE WANTS TO GO BACK TO [facility] TODAY. CM EXPLAINED DELAY IN INSURANCE AUTHORIZATION AND ASSURED PT THAT CM WAS WORKING FAST POSSIBLE. PT THANKED CM. CM REVIEWED CHART, OCCUPATIONAL THERAPY EVALUATION AND NOTE FROM LAST EVENING TO [facility], . CM WAITING ADMISISON DETERMINATION WELL INSURANCE AUTHORIZATION FOR [facility] SERVICES. Aj Millan CASE ROXANNA DCP- Discharge Planning Updated by [id number]: Aj Millan on 04/13/19 4:[address] Patient Name: ABBY PHILLIPS Encounter No: [id number] : 1945 Primary Insurance: [facility] MEDICARE SOLUTIONS Anticipated DC Date: 04-14-2019 Planned Disposition: Snf Facility External Planned Provider: [facility], MEDICARE REHAB BED DCP follow-up note: CM RECEIVED DISCHARGE ORDER, SPOKE TO BEDSIDE NURSE WHO INFORMED CM THAT PT WANTS TO SEE CM HE DOES NOT HAVE OXYGEN FOR DISCHARGE HOME TODAY. CM MET WITH PT IN ROOM TO DISCUSS DISCHARGE PLANNING AND NEEDS. CM DISCUSSED AVAILABILITY OF HOME HEALTH, REHAB SERVICES AND MEDICAL EQUIPMENT. PT REPORTS NEEDING OXYGEN FOR DISCHARGE HOME AND HE GETS HIS OXYGEN AT HOME FROM [facility]; PT REPORTS A FRIEND WILL PICK HIM UP FOR DISCHARGE HOME. IMPORTANT MESSAGE FROM MEDICARE PROVIDED AND EXPLAINED. CM CALLED [facility], THEY COULD NOT FIND PT IN THEIR SERVICE. CM CALLED [facility] IN [place], , SPOKE TO CHRIS WHO CONFIRMED PT IS ACTIVE AND WILL ARRANGE PORTABLE OXYGEN TO HOSPITAL FOR PT'S DISCHARAGE HOME. CM RECEIVED CALL FROM PT'S SON, CHARLEY, WHO INFORMED CM THAT PT CALLED FOR A RIDE HOME AND INFORMED CM THAT PT LIVES ALONE AND CANNOT GO HOME AND NEEDS TO RETURN TO REHAB. HE WILL CALL PT IN ROOM TO DISCUSS THIS. CM SPOKE TO PT IN ROOM A FEW MINUTES LATER. PT STATES HE TALKED TO HIS SON, AND HE THINKS HIS SISTER WILL CARE FOR HIM AT HIS HOME. CM CALLED PT'S SISTER, MARIAH JONES, , [place] [facility] [place] CALL. CM DISCUSSED PT'S FUNCTIONING. PT REPORTS INABILITY TO WALK BUT CAN TRANSFER FROM BED TO CHAIR WITHOUT ASSISTANCE. PT STATES HE HAS BEEN UNABLE TO WALK FOR ABOUT 6 WEEKS AND THAT IS WHY HE WAS IN REHAB. CM DISCUSSED HAVING SAFE DISCHARGE PLAN, PT AGREES THAT HIS SISTER CANNOT PICK HIM UP IF NEEDED AND PT AGREES TO GO BACK TO REHAB AT [facility]. CHOICE SIGNED. CM CALLED AND CANCELLED PORTABLE OXYGEN DELIVERY WITH [facility] IN [place]. CM CALLED [facility], , SPOKE TO KAM WHO INFORMED CM THAT PT HAS BEEN DECLINING RETURN TO REHAB AND WANTING TO LEAVE HOSPITAL AMA. CM EXPLAINED PT'S CHANGE OF MIND AND REQUESTING FURHTER REHAB. KAM REPORTS SHE NEEDS A REFERRAL AND PHYSICAL WELL OCCUPATIONAL THERAPY EVALUATIONS PT HAS MANAGED MEDICARE AND REQUIRES PRIOR AUTH TO RETURN TO REHAB AT [facility]. ORDERS OBTAINED. CM FAXED REFERRAL TO [facility], . CM WILL FAX OCCUPATIONAL THERAPY EVAUATION TO [facility] WHEN DOCUMENTED. CM WAITING ADMISISON DETERMINATION WELL INSURANCE AUTHORIZATION FOR [facility]. Aj Millan, CASE MANAGEMENT DCP- Discharge Planning Updated by [id number]: Lia Gordon on 04/09/19 6:[address] DC PLAN: Return home with his sister. Ambulance to transport. ANTICIPATED DC NEEDS: Refused rehab- unsure about home health. CM met with patient to complete initial dc planning assessment. CM educated patient on the CM role and verbal consent given by patient to complete assessment. CM verified patient's address, phone number, and emergency contact phone numbers. Patient lives at home with his sister. He reports his sister transports him to and from dialysis on T,TH,SAT in [place]. At discharge patient plans to return home with his sister and feels this is a safe discharge. CM discussed availability of home health, rehab services, and medical equipment. He reports he is not able to ambulate now. CM asked about rehab and he said he would not go to rehab. He is unsure if he would want HH at this time. He has however had home health before. Patient denied known discharge needs at this time. Patient reports he will transport home by ambulance time of discharge. CM will continue to follow and will assist as needed with dc plans/needs. Lia Gordon RN, [facility] DCPIA - Discharge Planning Initial Assessment Updated by [email or web address]: Lia Gordon on 04/09/19 7:18 pm * Is the patient Alert and Oriented? Yes * PCP Dr. Jef Erwin * [facility] * Preadmission Environment Home with Family * ADLs Partial Dependent * Partial ADLs (Assistance needed) Ambulation Medication Management Transfers * Equipment Wheelchair * List name and contact numbers for known caregivers / representatives who currently or will assist patient after discharge: Mariah Jones - sister - [phone] * Verbal permission to speak to the caregivers and representatives has been obtained from the patient. Yes * Community resources currently utilized Other * Please name any agencies selected above. Dialysis T-TH-SAT Sister transports him to & from HD. * Additional services required to return to the preadmission environment? No * Can the patient safely return to the preadmission environment? Yes * Has this patient been hospitalized within the prior 30 days at any hospital? No External Providers [facility] Next Contact Date: 04/14/2019 Service Request Date: Service Type: Resolution: Reviewer: Comments: Coverage Notice Reviewer: [id number] Skylar Millan Notice Issued Date-Time: 04/13/2019 12:45 Notice Type: Patient Choice Letter Notice Delivered To: Patient Relationship to Patient: County Home Demonstration Agent Name: Delivery Method: HAND - Hand Delivered Anusha Days: Prior Verbal Notification: Recipient Understood Notice: Yes Recipient Signature: Yes Med Rec Note Co-signed by Attending: Coverage Notice Comment: NO HOME HEALTH PROVIDER PREFERENCE Reviewer: [id number] Skylar Millan Notice Issued Date-Time: 04/13/2019 12:45 Notice Type: IM Discharge Notice Notice Delivered To: Patient Relationship to Patient: County Home Demonstration Agent Name: Delivery Method: HAND - Hand Delivered Anusha Days: Prior Verbal Notification: Recipient Understood Notice: Yes Recipient Signature: Yes Med Rec Note Co-signed by Attending: Coverage Notice Comment: Last DP export: 04/14/19 4:09 p Patient Name: ABBY PHILLIPS Page 54557 at 1717 All edits/amendments must be made on the electronic document DICTATION DATE: 04/14/191716 ALARM ADJUSTER: APRIL 04/14/191716 RPT#: [id number] DC DATE: STATUS: ADM IN [facility] [address] [place] [address] END OF REPORT
--- NOTE | 2019-04-14 18:56 | NUR ---
SISTER CALLED AND STATED THAT NO ONE CAN COME 3 HOURS AWAY TO PICK PT UP TO TAKE HOME. SISTER SAYS THE OTHER SISTER THAT WOULD BE TAKING CARE OF HIM IS SICK WITH THE FLU. FAMILY WANTS PT TO GO TO REHAB. EXPLAINED TO FAMILY THAT HE REFUSES TO GO TO REHAB.
--- NOTE | 2019-04-14 19:30 | NUR ---
PT CARE ASSUMED. RR EVEN BUT LABORED ON 4L NC. PT COUGHING UP PHLEGM AT THIS TIME. HOB AT 30. PROVIDED SNACK AND WATER PER REQUEST. NO S/S OF DISTRESS NOTED. WILL CPOC.
[2019-04-14 20:00] VITALS: BP 182/87
--- NOTE | 2019-04-14 22:46 | NUR ---
PT REFUSING MEPILEX ON BUTTOCKS
[2019-04-15] VITALS: BP 117/98
--- NOTE | 2019-04-15 02:26 | NUR ---
PT NOW REQUESTING MEPILEX BE PLACED ON BUTTOCKS.
[2019-04-15 05:13] LABS: BASOPHILS 0.1 % (0-2); HEMATOCRIT 31.6 % (42.0-54.0); HEMOGLOBIN 9.6 g/dL (13.5-17.5); IMMATURE GRANULOCYTES 0.6 % (0-5); LYMPHOCYTES 15.9 % (15-50); MCH 25.7 pg (26.0-34.0); MCHC 30.4 g/dL (31.0-37.0); MCV 84.7 fL (80.0-100.0); MEAN PLATELET VOLUME 10.2 fL (7.4-10.4); MONOCYTES 15.8 % (2-11); NEUTROPHILS 66.6 % (40-80); PLATELET COUNT 383 10x3/uL (130-400); RBC 3.73 10x6/uL (4.20-6.10); RDW 16.8 % (11.5-14.5)
[2019-04-15 05:35] LABS: ANION GAP 10.9 mmol/L (8-16); CARBON DIOXIDE 29.5 mmol/L (21.0-32.0); CREATININE - SERUM 3.6 mg/dL (0.6-1.3); POTASSIUM - SERUM 3.4 mmol/L (3.5-5.1); VANCOMYCIN - RANDOM 10.7 ug/mL (10.0-20.0)
[2019-04-15 05:42] LABS: CALCIUM 7.9 mg/dL (8.5-10.1)
[2019-04-15 08:32] VITALS: BP 171/61
--- NOTE | 2019-04-15 08:55 | NUR ---
ALAYNA LIBRARY TECHNICIAN GAVE PT NUMBERS TO CALL HIS SISTERS HANDY AND JORGE FOR A RIDE HOME BECAUSE HE HAS BEEN DISCHARGED. PT COULD NOT [phone] THIS NURSE CALLED [facility] AND RECEIVED NO ANSWER AND COULD NOT LEAVE A VOICEMAIL D/T THERE BEING NO VOICEMAIL SET UP. CALLED JORGE AND SPOKE WITH HER THAT PT NEEDS A RIDE AND I COULD NOT GET AHOLD OF [facility] I ALSO STATED TO HER PT NEEDS TO SPEAK WITH HER. SHE VERBALIZED UNDERSTANDING AND GAVE HER PT'S ROOM NUMBER [phone].
--- NOTE | 2019-04-15 11:46 | MORECARE ---
CASE MANAGEMENT DISCHARGE SUMMARY PATIENT: ABBY PHILLIPS UNIT: [id number] ADM DATE: 04/09/19 AGE: 73 : [birth year] SEX: M ROOM/BED: D.7161 AUTHOR: BYRON,DOC PHYSICIAN: REFERRING PHYSICIAN: DARREL TOURE DO DATE OF SERVICE: 04/15/19 Discharge Plan Patient Name: ABBY PHILLIPS Facility: [facility] : 1945 Planned Disposition: Home with Home Health Anticipated Discharge Date: 04/15/19 Discharge Date: Expected LOS: 6 Initial Reviewer: [id number] Initial Review Date: 04/09/2019 Generated: 04/15/19 12:45 pm Comments DCP- Discharge Planning Updated by [id number]: Aj Millan on 04/15/19 10:[address] Patient Name: ABBY PHILLIPS Encounter No: [id number] : 1945 Primary Insurance: [employer] Anticipated DC Date: 04-15-2019 Planned Disposition: Home with Home Health External [facility] follow-up note: CM SPOKE TO PT IN ROOM AT HIS REQUEST. PT REPORTS HIS SON IS ON THE WAY FROM [place] TO PICK HIM UP FOR TRANSPORT HOME TODAY. PT DENIES FURTHER DISCHARGE NEEDS. HARSHAL RECEIVED CALL FROM SHIRA OF [facility], . SHIRA REPORTS HE IS PT'S NEW HEALTH WORKERS. HARSHAL OBTAINED PERMISSION FROM PT TO SPEAK TO [facility]. HARSHAL UPDATED SHIRA ON PT'S TREATMENT AND DISCHARGE PLAN. SHIRA WILL CALL AND SPEAK TO DIALYSIS UNIT AND WILL FOLLOW UP WITH PT VIA PHONE AT HOME TO DETERMINE IF PT HAS FURHTER NEEDS OTHER THAN HOME HEALTH AFTER GETTING HOME. HARSHAL PROVIDED PT WITH [facility] CONTACT NUMBER. PT REPORTS HIS SON IS ON THE WAY TO [facility] PT TODAY FOR TRANSPORT HOME. [facility] IS SCHEDULED TO SEE PT ON 04-17-19. AJ MILLAN, CASE MANAGEMENT Aj Millan DCP- Discharge Planning Updated by [id number]: Aj Millan on 04/14/19 4:[address] Patient Name: ABBY PHILLIPS Encounter No: [id number] : 01-05-1946 Primary Insurance: [employer] Anticipated DC Date: 04-14-2019 Planned Disposition: Home with Home Health External Planned Provider: [facility] DCP follow-up note: CM CALLED [facility] IN [place], , SPOKE TO CINTHYA WHO CONFIRMED PT IS ACTIVE AND WILL ARRANGE PORTABLE OXYGEN TO HOSPITAL FOR PT'S DISCHARAGE HOME TODAY. CM SPOKE TO PT IN ROOM. PT STILL INSISTANT ON GOING HOME, REFUSES ANY REHAB PLACEMENT. PT WILL ACCEPT HOME HEALTH. CHOICE LISTING GIVEN. PT HAS NO PREFERENCE ON PROVIDER. CHOICE LETTER SIGNED BY PT. PT REPORTS HE HAS CALLED HIS SON AND IS WORKING ON TRANSPORTATION NOW. OXYGEN HAS BEEN DELIVERED TO ROOM FROM [facility], RASHIDA FROM [facility] INSTRUCTED PT ON USE OF OXYGEN, PT REPORTS HAVING OXYGEN AT HOME AND KNOWS HOW TO USE THE E-TANK. CM CALLED [facility], [facility], , SPOKE TO PHOTOGRAPHIC PLATEMAKER NURSE HERNANDEZ WHO INFORMED CM THAT THEY WILL ACCEPT PT BUT CAUTIONED THAT THEY WILL ASSESS PT AND IF HE DOES NOT HAVE 24 HOUR CAREGIVER, THEY WILL NOT SEE HIM AND MAY REPORT TO ADULT PROTECTIVE SERVICES. CM NOTIFIED PT WHO IS IN AGREEMENT AND ASSURES CM THAT HE HAS 24 HOUR CAREGIVER WITH HIS SISTER AND WILL HIRE SOMEONE IF NECESSARY. PT STATES THAT CM CAN TALK TO HIS SON, CHARLEY, REGARDING HIS CARE AND DISCHARGE PLAN. CM FAXED HOME HEALTH REFERRAL TO [facility] AT [phone]. CM RECEIVED CALL FROM CHARLEY PHILLIPS, , WHO HAS TALKED TO PT AND INFORMED CM THAT PT'S SISTER IS NOT ABLE TO TAKE CARE OF PT AND HE IS NOT GOING TO PROFESSOR OF HISTORICAL THEOLOGY PT AND TAKE PT HOME. CM EXPLAINED THAT PT HAS DECLINED REHAB AND PT IS NOT DEEMED INCOMPETENT TO MAKE DECISIONS, PT HAS NO GUARDIAN AND CM CANNOT MAKE PT GO TO REHAB. CM EXPLAINED THAT PT IS FREE TO GO IF HE CAN FIND SOMEONE TO PICK HIM UP. CM EXPLAINED THAT HOME HEALTH WILL ASSESS PT AT HOME AND IF NOT SAFE DISCHARGE PLAN, IF PT DOES NOT HAVE 24 HOUR CARE, HOME HEALTH WILL NOT SEE PT AND MAY REPORT TO ADULT PROTECTIVE SERVICES. CHARLEY WILL CALL OTHER FAMILY MEMBERS TO SPEAK TO THEM REGARDING ASSISTANCE WITH PT AND DISCHARGE PLAN. CM INFORMED PT OF PHONE CALL. PT REPORTS HE WILL FIND SOMEONE TO PICK HIM UP TODAY AND THANKED CM FOR MAKING ARRANGEMENTS FOR HIM. THREAT ANALYST NURSE NOTIFIED. SELENA Cullen MANAGEMENT DCP- Discharge Planning Updated by [id number]: Aj Millan on 04/14/19 3:[address] Patient Name: ABBY PHILLIPS Encounter No: [id number] : 1945 Primary Insurance: [facility] MEDICARE SOLUTIONS Anticipated DC Date: 04-14-2019 Planned Disposition: Home DCP follow-up note: CM SPOKE TO PRASHANTH [facility], SHE HAS MET WITH PT IN ROOM, HE HAS DECLINED TO GO TO THE FACILITY AND STATED TO HER HE IS GOING HOME, HIS SISTER IS TAKING CARE OF HIM. PT STATES THAT THEY WILL HIRE OTHER CAREGIVERS IF NECESSARY. CM TO FOLLOW UP WITH PT SOON POSSIBLE. Aj Millan, CASE MANAGEMENT Appended by Aj Millan on 04/14/2019 16:05 CDT: CM MET WITH PT IN DIALYSIS, THERE WERE NO OTHER PATIENTS THERE. CM DISCUSSED DISCHARGE PLANNING. PT REPORTS HE IS GOING HOME, NOT TO REHAB AND HE WANTS HOME HEALTH. PT INSISTS THAT HE HAS "SOMEONE" TO PICK HIM UP AND THAT HIS SISTER WILL BE HOME TO CARE FOR HIM AND THAT THEY WILL HIRE PERSONAL CARE IF NEEDED. CM INFORMED PT THAT [facility] NOT [facility] PT BACK IF HE CHANGES HIS MIND. PT REPORTS UNDERSTANDING AND AGAIN STATES HE DOES NOT WANT TO RETURN. CM EXPLAINED THAT PT WAS DISCHARGED YESTERDAY AND HE NEEDS TO GET HIS RIDE HERE TO PICK HIM UP SOON POSSIBLE TODAY. CM EXPLAINED THAT THE HOSPITAL IS NOT A HOTEL AND THAT INSURANCE WILL NOT PAY FOR HIS STAY WHEN MEDICALLY STABLE. PT REPORTS UNDERSTANDING. PT REPORTS ABILITY TO USE THE PHONE IN THE ROOM AND HAS BEEN TALKING TO FAMILY AND FRIENDS. CM ADVISED PT THAT HIS SISTER HAS NOT CALLED CM BACK. PT ASSURES CM THAT SHE HAS AGREED TO ASSIST HIM AND HE IS GOING HOME. CM TO ARRANGE PORTABLE OXYGEN FROM [facility] AND HOME HEALTH FOR DISCHARGE HOME TODAY PREVIOUSLY ORDERED. SELENA CULLEN DCP- Discharge Planning Updated by [id number]: Aj Millan on 04/14/19 8:[address] Patient Name: ABBY PHILLIPS Encounter No: [id number] : 1945 Primary Insurance: [facility] MEDICARE SOLUTIONS Anticipated DC Date: 04-14-2019 Planned Disposition: [facility] Facility External Planned Provider: [facility], MEDICARE REHAB BED DCP follow-up note: CM SPOKE TO DENTAL AMALGAM PROCESSOR NURSE WHO INFORMED CM THAT PT WANTS TO SEE CM. CM MET WITH PT IN ROOM, PT STATES HE WANTS TO GO BACK TO [place] REHAB TODAY. CM EXPLAINED DELAY IN INSURANCE AUTHORIZATION AND ASSURED PT THAT CM WAS WORKING FAST POSSIBLE. PT THANKED CM. CM REVIEWED CHART, OCCUPATIONAL THERAPY EVALUATION AND NOTE FROM LAST EVENING TO [facility], . CM WAITING ADMISISON DETERMINATION WELL INSURANCE AUTHORIZATION FOR [facility]. Aj Millan, CASE MANAGEMENT DCP- Discharge Planning Updated by [id number]: Aj Millan on 04/13/19 4:[address] Patient Name: ABBY PHILLIPS Encounter No: [id number] : 1945 Primary Insurance: [facility] MEDICARE SOLUTIONS Anticipated DC Date: 04-14-2019 Planned Disposition: [facility]sp Facility External Planned Provider: [facility], MEDICARE REHAB BED DCP follow-up note: CM RECEIVED DISCHARGE ORDER, SPOKE TO BEDSIDE NURSE WHO INFORMED CM THAT PT WANTS TO SEE CM HE DOES NOT HAVE OXYGEN FOR DISCHARGE HOME TODAY. CM MET WITH PT IN ROOM TO DISCUSS DISCHARGE PLANNING AND NEEDS. CM DISCUSSED AVAILABILITY OF HOME HEALTH, REHAB SERVICES AND MEDICAL EQUIPMENT. PT REPORTS NEEDING OXYGEN FOR DISCHARGE HOME AND HE GETS HIS OXYGEN AT HOME FROM [facility]; PT REPORTS A FRIEND WILL PICK HIM UP FOR DISCHARGE HOME. IMPORTANT MESSAGE FROM MEDICARE PROVIDED AND EXPLAINED. CM CALLED [facility], THEY COULD NOT FIND PT IN THEIR SERVICE. CM CALLED [facility] IN [place], , SPOKE TO CHRIS WHO CONFIRMED PT IS ACTIVE AND WILL ARRANGE PORTABLE OXYGEN TO HOSPITAL FOR PT'S DISCHARAGE HOME. CM RECEIVED CALL FROM PT'S SON, CHARLEY, WHO INFORMED CM THAT PT CALLED FOR A RIDE HOME AND INFORMED CM THAT PT LIVES ALONE AND CANNOT GO HOME AND NEEDS TO RETURN TO REHAB. HE WILL CALL PT IN ROOM TO DISCUSS THIS. CM SPOKE TO PT IN ROOM A FEW MINUTES LATER. PT STATES HE TALKED TO HIS SON, AND HE THINKS HIS SISTER WILL CARE FOR HIM AT HIS HOME. CM CALLED PT'S SISTER, MARIAH JONES, , LEFT [place] ASKING FOR RETURN CALL. CM DISCUSSED PT'S FUNCTIONING. PT REPORTS INABILITY TO WALK BUT CAN TRANSFER FROM BED TO CHAIR WITHOUT ASSISTANCE. PT STATES HE HAS BEEN UNABLE TO WALK FOR ABOUT 6 WEEKS AND THAT IS WHY HE WAS IN REHAB. CM DISCUSSED HAVING SAFE DISCHARGE PLAN, PT AGREES THAT HIS SISTER CANNOT PICK HIM UP IF NEEDED AND PT AGREES TO GO BACK TO REHAB AT [place] [facility]. CHOICE SIGNED. CM CALLED AND CANCELLED PORTABLE OXYGEN DELIVERY WITH [facility] IN [place]. CM CALLED [facility], , SPOKE TO KAM WHO INFORMED CM THAT PT HAS BEEN DECLINING RETURN TO REHAB AND WANTING TO LEAVE HOSPITAL AMA. CM EXPLAINED PT'S CHANGE OF MIND AND REQUESTING FURHTER REHAB. KAM REPORTS SHE NEEDS A REFERRAL AND PHYSICAL WELL OCCUPATIONAL THERAPY EVALUATIONS PT HAS MANAGED MEDICARE AND REQUIRES PRIOR AUTH TO RETURN TO REHAB AT [facility]. ORDERS OBTAINED. CM FAXED REFERRAL TO [facility], . CM WILL FAX OCCUPATIONAL THERAPY EVAUATION TO [facility] AND REHAB WHEN DOCUMENTED. CM WAITING ADMISISON DETERMINATION WELL INSURANCE AUTHORIZATION FOR [facility] SERVICES. Aj Millan, CASE MANAGEMENT DCP- Discharge Planning Updated by [id number]: Lia Gordon on 04/09/19 6:[address] DC PLAN: Return home with his sister. Ambulance to transport. ANTICIPATED DC NEEDS: Refused rehab- unsure about home health. CM met with patient to complete initial dc planning assessment. CM educated patient on the CM role and verbal consent given by patient to complete assessment. CM verified patient's address, phone number, and emergency contact phone numbers. Patient lives at home with his sister. He reports his sister transports him to and from dialysis on T,[place],S[place] in [place]. At discharge patient plans to return home with his sister and feels this is a safe discharge. CM discussed availability of home health, rehab services, and medical equipment. He reports he is not able to ambulate now. CM asked about rehab and he said he would not go to rehab. He is unsure if he would want HH at this time. He has however had home health before. Patient denied known discharge needs at this time. Patient reports he will transport home by ambulance time of discharge. CM will continue to follow and will assist as needed with dc plans/needs. Lia Gordon RN, [place] [place] DCP[facility] - Discharge Planning Initial Assessment Updated by [id number]: Lia Gordon on 04/09/19 7:18 pm * Is the patient Alert and Oriented? Yes * PCP Dr. Jef Erwin * Pharmacy [facility] * Preadmission Environment Home with Family * ADLs Partial Dependent * Partial ADLs (Assistance needed) Ambulation Medication Management Transfers * Equipment Wheelchair * List name and contact numbers for known caregivers / representatives who currently or will assist patient after discharge: Mariah fernandez - [phone] * Verbal permission to speak to the caregivers and representatives has been obtained from the patient. Yes * Community resources currently utilized Other * Please name any agencies selected above. Dialysis [place] Sister transports him to & from HD. * Additional services required to return to the preadmission environment? No * Can the patient safely return to the preadmission environment? Yes * Has this patient been hospitalized within the prior 30 days at any hospital? No Coverage Notice Reviewer: [id number] Millan Notice Issued Date-Time: 04/13/2019 12:45 Notice Type: Patient Choice Letter Notice Delivered To: Patient Relationship to Patient: Supervisor [employer] Former Name: Delivery Method: HAND - Hand Delivered Anusha Days: Prior Verbal Notification: Recipient Understood Notice: Yes Recipient Signature: Yes Med Rec Note Co-signed by Attending: Coverage Notice Comment: NO HOME HEALTH PROVIDER PREFERENCE Reviewer: [id number] Millan Notice Issued Date-Time: 04/13/2019 12:45 Notice Type: IM Discharge Notice Notice Delivered To: Patient Relationship to Patient: Supervisor [employer] Former Name: Delivery Method: HAND - Hand Delivered Anusha Days: Prior Verbal Notification: Recipient Understood Notice: Yes Recipient Signature: Yes Med Rec Note Co-signed by Attending: Coverage Notice Comment: Reviewer: [id number] Millan Notice Issued Date-Time: 04/14/2019 16:35 Notice Type: Patient Choice Letter Notice Delivered To: Patient Relationship to Patient: Supervisor [employer] Former Name: Delivery Method: HAND - Hand Delivered Anusha Days: Prior Verbal Notification: Recipient Understood Notice: Yes Recipient Signature: Yes Med Rec Note Co-signed by Attending: Coverage Notice Comment: NO HOME HEALTH PROVIDER PREFERENCE Last DP export: 04/14/19 4:17 p Patient Name: JACQUELINE, ABBY Page [id number] at 1146 All edits/amendments must be made on the electronic document DICTATION DATE: 04/15/19 114 PERSONNEL ADVISER: APRIL 04/15/19 114 RPT#: [id number] DC DATE: STATUS: ADM IN [facility] [address] [place] [address] END OF REPORT
--- NOTE | 2019-04-15 12:30 | NUR ---
PT'S SON CHARLEY AND PT'S SISTER AT BEDSIDE TO TAKE PT HOME. DISCHARGE INSTRUCTIONS EXPLAINED TO PT AND FAMILY BY THIS NURSE AND ALAYNA FURNITURE MOVER EXPLAINED HOME HEALTH AND CIGARETTE MAKING MACHINE CATCHER TO THEM. PT VERBALIZED UNDERSTANDING. PT HAS NO IV ACCESS. PT DRESSED. PT HAS OXYGEN FROM [facility] AND IS DC'D WITH THAT. PT TAKEN DOWN VIA WC BY VOLUNTEER ACCOMOMPANIED BY FAMILY AND LEFT IN SON'S TRUCK.
--- NOTE | 2019-04-15 14:07 | MORECARE ---
CASE MANAGEMENT DISCHARGE SUMMARY PATIENT: ABBY PHILLIPS UNIT: [id number] ADM DATE: 04/09/19 AGE: 73 : [birth year] SEX: M ROOM/BED: D.3808 AUTHOR: NICOLASA MATTHEWS PHYSICIAN: REFERRING PHYSICIAN: DARREL TOURE DO DATE OF SERVICE: 04/15/19 Discharge Plan Patient Name: ABBY PHILLIPS Facility: [facility]:[place] : 1945 Planned Disposition: Home with Home Health Anticipated Discharge Date: 04/15/19 Discharge Date: 04/15/2019 Expected LOS: 6 Initial Reviewer: [id number] Initial Review Date: 04/09/2019 Generated: 04/15/19 3:06 pm Comments DCP- Discharge Planning Updated by [id number]: Aj Millan on 04/15/19 10:[address] Patient Name: ABBY PHILLIPS Encounter No: [id number] : 1945 Primary Insurance: [employer] MEDICARE SOLUTIONS Anticipated DC Date: 04-15-2019 Planned Disposition: Home with Home Health External Planned Provider[facility] DCP follow-up note: CM SPOKE TO PT IN ROOM AT HIS REQUEST. PT REPORTS HIS SON IS ON THE WAY FROM [place] TO PICK HIM UP FOR TRANSPORT HOME TODAY. PT DENIES FURTHER DISCHARGE NEEDS. HARSHAL RECEIVED CALL FROM SHIRA OF [facility], . SHIRA REPORTS HE IS PT'S NEW EXECUTIVE ASST. HARSHAL OBTAINED PERMISSION FROM PT TO SPEAK TO MANLY. HARSHAL UPDATED SHIRA ON PT'S TREATMENT AND DISCHARGE PLAN. SHIRA WILL CALL AND SPEAK TO DIALYSIS UNIT AND WILL FOLLOW UP WITH PT VIA PHONE AT HOME TO DETERMINE IF PT HAS FURHTER NEEDS OTHER THAN HOME HEALTH AFTER GETTING HOME. HARSHAL PROVIDED PT WITH [facility] CONTACT NUMBER. PT REPORTS HIS SON IS ON THE WAY TO [place] [facility] TODAY FOR TRANSPORT HOME. [facility] IS SCHEDULED TO SEE PT ON 04-17-19. AJ MILLAN, CASE MANAGEMENT Aj Millan DCP- Discharge Planning Updated by [id number]: Aj Millan on 04/14/19 4:[address] Patient Name: ABBY PHILLIPS Encounter No: [id number] : 1945 Primary Insurance: [facility] MEDICARE SOLUTIONS Anticipated DC Date: 04-14-2019 Planned Disposition: Home with Home Health External Planned Provider: [facility] DCP follow-up note: CM CALLED [facility] IN [place], , SPOKE TO CINTHYA WHO CONFIRMED PT IS ACTIVE AND WILL ARRANGE PORTABLE OXYGEN TO HOSPITAL FOR PT'S DISCHARAGE HOME TODAY. CM SPOKE TO PT IN ROOM. PT STILL INSISTANT ON GOING HOME, REFUSES ANY REHAB PLACEMENT. PT WILL ACCEPT HOME HEALTH. CHOICE LISTING GIVEN. PT HAS NO PREFERENCE ON PROVIDER. CHOICE LETTER SIGNED BY PT. PT REPORTS HE HAS CALLED HIS SON AND IS WORKING ON TRANSPORTATION NOW. OXYGEN HAS BEEN DELIVERED TO ROOM FROM [facility], RASHIDA FROM [facility] INSTRUCTED PT ON USE OF OXYGEN, PT REPORTS HAVING OXYGEN AT HOME AND KNOWS HOW TO USE THE E-TANK. CM CALLED [facility], [place], , SPOKE TO POURER BUGGY LADLE NURSE HERNANDEZ WHO INFORMED CM THAT THEY WILL ACCEPT PT BUT CAUTIONED THAT THEY WILL ASSESS PT AND IF HE DOES NOT HAVE 24 HOUR CAREGIVER, THEY WILL NOT SEE HIM AND MAY REPORT TO ADULT PROTECTIVE SERVICES. CM NOTIFIED PT WHO IS IN AGREEMENT AND ASSURES CM THAT HE HAS 24 HOUR CAREGIVER WITH HIS SISTER AND WILL HIRE SOMEONE IF NECESSARY. PT STATES THAT CM CAN TALK TO HIS SON, CHARLEY, REGARDING HIS CARE AND DISCHARGE PLAN. CM FAXED HOME HEALTH REFERRAL TO [facility] AT [phone]. CM RECEIVED CALL FROM CHARLEY PHILLIPS, , WHO HAS TALKED TO PT AND INFORMED CM THAT PT'S SISTER IS NOT ABLE TO TAKE CARE OF PT AND HE IS NOT GOING TO [place] PT AND TAKE PT HOME. CM EXPLAINED THAT PT HAS DECLINED REHAB AND PT IS NOT DEEMED INCOMPETENT TO MAKE DECISIONS, PT HAS NO GUARDIAN AND CM CANNOT MAKE PT GO TO REHAB. CM EXPLAINED THAT PT IS FREE TO GO IF HE CAN FIND SOMEONE TO PICK HIM UP. CM EXPLAINED THAT HOME HEALTH WILL ASSESS PT AT HOME AND IF NOT SAFE DISCHARGE PLAN, IF PT DOES NOT HAVE 24 HOUR CARE, HOME HEALTH WILL NOT SEE PT AND MAY REPORT TO ADULT PROTECTIVE SERVICES. CHARLEY WILL CALL OTHER FAMILY MEMBERS TO SPEAK TO THEM REGARDING ASSISTANCE WITH PT AND DISCHARGE PLAN. CM INFORMED PT OF PHONE CALL. PT REPORTS HE WILL FIND SOMEONE TO PICK HIM UP TODAY AND THANKED CM FOR MAKING ARRANGEMENTS FOR HIM. STATE INSPECTOR NURSE NOTIFIED. SELENA Cullen MANAGEMENT DCP- Discharge Planning Updated by [id number]: jA Millan on 04/14/19 3:[address] Patient Name: ABBY PHILLIPS Encounter No: [id number] : 1945 Primary Insurance: [facility] MEDICARE SOLUTIONS Anticipated DC Date: 04-14-2019 Planned Disposition: Home DCP follow-up note: CM SPOKE TO PRASHANTH OF [facility], SHE HAS MET WITH PT IN ROOM, HE HAS DECLINED TO GO TO THE FACILITY AND STATED TO HER HE IS GOING HOME, HIS SISTER IS TAKING CARE OF HIM. PT STATES THAT THEY WILL HIRE OTHER CAREGIVERS IF NECESSARY. CM TO FOLLOW UP WITH PT SOON POSSIBLE. Aj Millan, CASE MANAGEMENT Appended by Aj Millan on 04/14/2019 16:05 CDT: CM MET WITH PT IN DIALYSIS, THERE WERE NO OTHER PATIENTS THERE. CM DISCUSSED DISCHARGE PLANNING. PT REPORTS HE IS GOING HOME, NOT TO REHAB AND HE WANTS HOME HEALTH. PT INSISTS THAT HE HAS "SOMEONE" TO PICK HIM UP AND THAT HIS SISTER WILL BE HOME TO CARE FOR HIM AND THAT THEY WILL HIRE PERSONAL CARE IF NEEDED. CM INFORMED PT THAT [facility] WILL NOT ACCEPT PT BACK IF HE CHANGES HIS MIND. PT REPORTS UNDERSTANDING AND AGAIN STATES HE DOES NOT WANT TO RETURN. CM EXPLAINED THAT PT WAS DISCHARGED YESTERDAY AND HE NEEDS TO GET HIS RIDE HERE TO PICK HIM UP SOON POSSIBLE TODAY. CM EXPLAINED THAT THE HOSPITAL IS NOT A HOTEL AND THAT INSURANCE WILL NOT PAY FOR HIS STAY WHEN MEDICALLY STABLE. PT REPORTS UNDERSTANDING. PT REPORTS ABILITY TO USE THE PHONE IN THE ROOM AND HAS BEEN TALKING TO FAMILY AND FRIENDS. CM ADVISED PT THAT HIS SISTER HAS NOT CALLED CM BACK. PT ASSURES CM THAT SHE HAS AGREED TO ASSIST HIM AND HE IS GOING HOME. CM TO ARRANGE PORTABLE OXYGEN FROM [facility] AND HOME HEALTH FOR DISCHARGE HOME TODAY PREVIOUSLY ORDERED. SELENA CULLEN DCP- Discharge Planning Updated by [id number]: Aj Millan on 04/14/19 8:[address] Patient Name: ABBY PHILLIPS Encounter No: [id number] : 1945 Primary Insurance: [facility] MEDICARE SOLUTIONS Anticipated DC Date: 04-14-2019 Planned Disposition: Detention Facility External Planned Provider: [facility], MEDICARE REHAB BED DCP follow-up note: CM SPOKE TO TOUCH UP WORKER NURSE WHO INFORMED CM THAT PT WANTS TO SEE CM. CM MET WITH PT IN ROOM, PT STATES HE WANTS TO GO BACK TO [place] REHAB TODAY. CM EXPLAINED DELAY IN INSURANCE AUTHORIZATION AND ASSURED PT THAT CM WAS WORKING FAST POSSIBLE. PT THANKED CM. CM REVIEWED CHART, OCCUPATIONAL THERAPY EVALUATION AND NOTE FROM LAST EVENING TO [facility], . CM WAITING ADMISISON DETERMINATION WELL INSURANCE AUTHORIZATION FOR LONG-TERM REHAB SERVICES. Aj Millan, CASE MANAGEMENT DCP- Discharge Planning Updated by [id number]: Aj Millan on 04/13/19 4:[address] Patient Name: ABBY PHILLIPS Encounter No: [id number] : 1945 Primary Insurance: [facility] MEDICARE SOLUTIONS Anticipated DC Date: 04-14-2019 Planned Disposition: Detention Facility External Planned Provider: [facility], MEDICARE REHAB BED DCP follow-up note: CM RECEIVED DISCHARGE ORDER, SPOKE TO BEDSIDE NURSE WHO INFORMED CM THAT PT WANTS TO SEE CM HE DOES NOT HAVE OXYGEN FOR DISCHARGE HOME TODAY. CM MET WITH PT IN ROOM TO DISCUSS DISCHARGE PLANNING AND NEEDS. CM DISCUSSED AVAILABILITY OF HOME HEALTH, REHAB SERVICES AND MEDICAL EQUIPMENT. PT REPORTS NEEDING OXYGEN FOR DISCHARGE HOME AND HE GETS HIS OXYGEN AT HOME FROM [facility]; PT REPORTS A FRIEND WILL PICK HIM UP FOR DISCHARGE HOME. IMPORTANT MESSAGE FROM MEDICARE PROVIDED AND EXPLAINED. CM CALLED [facility], THEY COULD NOT FIND PT IN THEIR SERVICE. CM CALLED [facility] IN [place], , SPOKE TO CHRIS WHO CONFIRMED PT IS ACTIVE AND WILL ARRANGE PORTABLE OXYGEN TO HOSPITAL FOR PT'S DISCHARAGE HOME. CM RECEIVED CALL FROM PT'S SON, CHARLEY, WHO INFORMED CM THAT PT CALLED FOR A RIDE HOME AND INFORMED CM THAT PT LIVES ALONE AND CANNOT GO HOME AND NEEDS TO RETURN TO REHAB. HE WILL CALL PT IN ROOM TO DISCUSS THIS. CM SPOKE TO PT IN ROOM A FEW MINUTES LATER. PT STATES HE TALKED TO HIS SON, AND HE THINKS HIS SISTER WILL CARE FOR HIM AT HIS HOME. CM CALLED PT'S SISTER, MARIAH JONES, , LEFT MESSSAGE ASKING FOR RETURN CALL. CM DISCUSSED PT'S FUNCTIONING. PT REPORTS INABILITY TO WALK BUT CAN TRANSFER FROM BED TO CHAIR WITHOUT ASSISTANCE. PT STATES HE HAS BEEN UNABLE TO WALK FOR ABOUT 6 WEEKS AND THAT IS WHY HE WAS IN REHAB. CM DISCUSSED HAVING SAFE DISCHARGE PLAN, PT AGREES THAT HIS SISTER CANNOT PICK HIM UP IF NEEDED AND PT AGREES TO GO BACK TO REHAB AT [facility] [facility]. CHOICE SIGNED. CM CALLED AND CANCELLED PORTABLE OXYGEN DELIVERY WITH [facility] IN [place]. CM CALLED [facility], , SPOKE TO KAM WHO INFORMED CM THAT PT HAS BEEN DECLINING RETURN TO REHAB AND WANTING TO LEAVE HOSPITAL AMA. CM EXPLAINED PT'S CHANGE OF MIND AND REQUESTING FURHTER REHAB. KAM REPORTS SHE NEEDS A REFERRAL AND PHYSICAL WELL OCCUPATIONAL THERAPY EVALUATIONS PT HAS MANAGED MEDICARE AND REQUIRES PRIOR AUTH TO RETURN TO REHAB AT LONG-TERM. ORDERS OBTAINED. CM FAXED REFERRAL TO [facility], . CM WILL FAX OCCUPATIONAL THERAPY EVAUATION TO [facility] AND [facility]HAB WHEN DOCUMENTED. CM WAITING ADMISISON DETERMINATION WELL INSURANCE AUTHORIZATION FOR LONG-TERM REHAB SERVICES. Aj Millan, CASE MANAGEMENT DCP- Discharge Planning Updated by [id number]: Liabon Gordon on 04/09/19 6:[address] DC PLAN: Return home with his sister. Ambulance to transport. ANTICIPATED DC NEEDS: Refused rehab- unsure about home health. CM met with patient to complete initial dc planning assessment. CM educated patient on the CM role and verbal consent given by patient to complete assessment. CM verified patient's address, phone number, and emergency contact phone numbers. Patient lives at home with his sister. He reports his sister transports him to and from dialysis on T,,SAT in [place]. At discharge patient plans to return home with his sister and feels this is a safe discharge. CM discussed availability of home health, rehab services, and medical equipment. He reports he is not able to ambulate now. CM asked about rehab and he said he would not go to rehab. He is unsure if he would want HH at this time. He has however had home health before. Patient denied known discharge needs at this time. Patient reports he will transport home by ambulance time of discharge. CM will continue to follow and will assist as needed with dc plans/needs. Lia Gordon RN, [facility] DCPIA - Discharge Planning Initial Assessment Updated by [id number]: Lia Gordon on 04/09/19 7:18 pm * Is the patient Alert and Oriented? Yes * PCP Dr. Jef Erwin * Pharmacy [facility] * Preadmission Environment Home with Family * ADLs Partial Dependent * Partial ADLs (Assistance needed) Ambulation Medication Management Transfers * Equipment Wheelchair * List name and contact numbers for known caregivers / representatives who currently or will assist patient after discharge: Mariah fernandez - [phone] * Verbal permission to speak to the caregivers and representatives has been obtained from the patient. Yes * Community resources currently utilized Other * Please name any agencies selected above. Dialysis [facility] Sister transports him to & from HD. * Additional services required to return to the preadmission environment? No * Can the patient safely return to the preadmission environment? Yes * Has this patient been hospitalized within the prior 30 days at any hospital? No Coverage Notice Reviewer: [id number] Millan Notice Issued Date-Time: 04/13/2019 12:45 Notice Type: Patient Choice Letter Notice Delivered To: Patient Relationship to Patient: Entry Level Project Coordinator Name: Delivery Method: HAND - Hand Delivered Anusha Days: Prior Verbal Notification: Recipient Understood Notice: Yes Recipient Signature: Yes Med Rec Note Co-signed by Attending: Coverage Notice Comment: NO HOME HEALTH PROVIDER PREFERENCE Reviewer: [id number] Millan Notice Issued Date-Time: 04/13/2019 12:45 Notice Type: IM Discharge Notice Notice Delivered To: Patient Relationship to Patient: Entry Level Project Coordinator Name: Delivery Method: HAND - Hand Delivered Anusha Days: Prior Verbal Notification: Recipient Understood Notice: Yes Recipient Signature: Yes Med Rec Note Co-signed by Attending: Coverage Notice Comment: Reviewer: [id number] Millan Notice Issued Date-Time: 04/14/2019 16:35 Notice Type: Patient Choice Letter Notice Delivered To: Patient Relationship to Patient: Entry Level Project Coordinator Name: Delivery Method: HAND - Hand Delivered Anusha Days: Prior Verbal Notification: Recipient Understood Notice: Yes Recipient Signature: Yes Med Rec Note Co-signed by Attending: Coverage Notice Comment: NO HOME HEALTH PROVIDER PREFERENCE Last DP export: 04/15/19 10:45 a Patient Name: ABBY PHILLIPS Page [id number] at 1407 All edits/amendments must be made on the electronic document DICTATION DATE: 04/15/191405 MEDIA JOB TITLES: APRIL 04/15/191405 RPT#: [id number] DC DATE:04/15/19 STATUS: DIS IN [facility] [address] [place] [address] END OF REPORT
== END 2019-04-15 13:40 | disposition home health service (06) | DRG 177 ==
LOC: D.ER 16:18 → D.ICU 18:20 → D.M2 18:20 → D.ICU 04-11 09:02 → D.M2 04-12 14:15
PROVIDERS: Emergency Medicine; ADMIT Internal Medicine; ATTEND Internal Medicine
DX: J69.0 Pneumonitis due to inhalation of food and vomit (principal); N18.6 End stage renal disease; J96.01 Acute respiratory failure with hypoxia; I13.2 Hypertensive heart and chronic kidney disease with heart failure and with stage 5 chronic kidney disease, or end stage renal disease; I50.32 Chronic diastolic (congestive) heart failure; I12.0 Hypertensive chronic kidney disease with stage 5 chronic kidney disease or end stage renal disease; E11.22 Type 2 diabetes mellitus with diabetic chronic kidney disease; E11.65 Type 2 diabetes mellitus with hyperglycemia; Z99.2 Dependence on renal dialysis; D63.1 Anemia in chronic kidney disease; E87.6 Hypokalemia

== ENCOUNTER 2019-04-18 15:52 | Inpatient (IN) | payer MEDICARE ==
[~2019-04-18] VITALS: Ht 168.9 cm; Wt 71.1 kg
[~2019-04-18 15:52] MED LIST changes: +BAYER CHEWABLE81 MG PO; +OMNICEF300 MG PO; +TRAZODONE; +VITAMIN D3
[2019-04-18 18:29] LABS: BASOPHILS 0.1 % (0-2); EOSINOPHILS 0.4 % (0-7); HEMATOCRIT 30.2 % (42.0-54.0); HEMOGLOBIN 9.2 g/dL (13.5-17.5); IMMATURE GRANULOCYTES 0.2 % (0-5); LYMPHOCYTES 15.6 % (15-50); MCH 25.5 pg (26.0-34.0); MCHC 30.5 g/dL (31.0-37.0); MCV 83.7 fL (80.0-100.0); MEAN PLATELET VOLUME 9.7 fL (7.4-10.4); MONOCYTES 7.9 % (2-11); NEUTROPHILS 75.8 % (40-80); PLATELET COUNT 421 10x3/uL (130-400); RBC 3.61 10x6/uL (4.20-6.10); RDW 16.8 % (11.5-14.5); WBC 11.6 10x3/uL (4.8-10.8)
[2019-04-18 18:59] LABS: ALBUMIN 2.3 g/dL (3.4-5.0); ALKALINE PHOSPHATASE 123 U/L (46-116); ALT (SGPT) 11 U/L (10-68); BILIRUBIN - TOTAL 0.38 mg/dL (0.2-1.3); CALC OSMOLALITY 289 mosm/kg (275-300); CALCIUM 7.5 mg/dL (8.5-10.1); CARBON DIOXIDE 25.3 mmol/L (21.0-32.0); CHLORIDE - SERUM 96 mmol/L (98-107); CREATININE - SERUM 6.6 mg/dL (0.6-1.3); GLUCOSE 148 mg/dL (74-106); POTASSIUM - SERUM 4.3 mmol/L (3.5-5.1); PROTEIN - SERUM 5.6 g/dL (6.4-8.2); SODIUM 134 mmol/L (136-145); UREA NITROGEN 67 mg/dL (7-18); eGFR NON AFRICAN AMERICAN 9 mL/min (90-120)
[2019-04-18 19:12] LABS: PRO BNP 27494 pg/mL (0-125); TROPONIN-I < 0.017 ng/mL (0.000-0.060)
[2019-04-18 20:00] VITALS: BP 167/56
[2019-04-18 22:46] VITALS: BP 167/56; BMI 26.2
--- NOTE | 2019-04-18 23:08 | NUR ---
RECIEVED REPORT FROM STEVE LOMBARDI IN ER. ARRIVED TO FLOOR ON STRETCHER. REQUIRED 3 STAFF TO TRANSFER TO BED. PT STATES HE IS UNABLE TO WALK OR BEAR WT. ALERT AND ORIENTED X4. FISTULA TO LEFT ARM WITH BRUIT AND TRILL. BRUISING TO LEFT UPPER ARM. USES URINAL. ALL HS MEDICATION GIVEN EXCEPT LASIX WAS GIVEN IN ER. LUNG SOUNDS CRACKLES BILATERALLY. FREQUENT COUGH PRODUCTIVE. SPUTUM WHITE. REQUIRES EXTENSIVE ASSIST WITH ADLS. WILL CONT. POC.
[2019-04-19] VITALS: BP 174/50
[2019-04-19 04:00] VITALS: BP 191/61
[2019-04-19 05:43] LABS: ALBUMIN 2.3 g/dL (3.4-5.0); ANION GAP 15.7 mmol/L (8-16); BILIRUBIN - TOTAL 0.41 mg/dL (0.2-1.3); CALCIUM 7.6 mg/dL (8.5-10.1); CARBON DIOXIDE 27.6 mmol/L (21.0-32.0); CREATININE - SERUM 6.6 mg/dL (0.6-1.3); POTASSIUM - SERUM 4.3 mmol/L (3.5-5.1); PROTEIN - SERUM 5.7 g/dL (6.4-8.2)
[2019-04-19 05:50] LABS: HEMATOCRIT 30.3 % (42.0-54.0); HEMOGLOBIN 9.3 g/dL (13.5-17.5); MCH 25.3 pg (26.0-34.0); MCHC 30.7 g/dL (31.0-37.0); MCV 82.6 fL (80.0-100.0); MEAN PLATELET VOLUME 9.9 fL (7.4-10.4); PLATELET COUNT 432 10x3/uL (130-400); RBC 3.67 10x6/uL (4.20-6.10); RDW 17.2 % (11.5-14.5); WBC 11.4 10x3/uL (4.8-10.8)
[2019-04-19 07:10] LABS: LYMPHOCYTES 15 % (15-50); MONOCYTES 12 % (2-11); NEUTROPHILS 72 % (40-80); PLATELET ESTIMATE NORMAL
--- NOTE | 2019-04-19 07:30 | NUR ---
RECIEVED REPORT. RESTING IN BED WITH EYES CLOSED. NO SIGNS OF DISTRESS. CONTINUE PLAN OF CARE AND SAFETY PRECAUTIONS.
[2019-04-19 08:45] VITALS: BP 180/67
--- NOTE | 2019-04-19 12:30 | NUR ---
TAKEN TO DIALYSIS VIA BED.
[2019-04-19 14:24] VITALS: BMI 26.2
--- NOTE | 2019-04-19 15:35 | MORECARE ---
CASE MANAGEMENT DISCHARGE SUMMARY PATIENT: ABBY PHILLIPS UNIT: [id number] ADM DATE: 04/19/19 AGE: 73 : [birth year] SEX: M ROOM/BED: D.9441 AUTHOR: BYRNO,DOC PHYSICIAN: REFERRING PHYSICIAN: SAMUEL COOPER MD DATE OF SERVICE: 04/19/19 Discharge Plan Patient Name: ABBY PHILLIPS Facility: [facility]:[place] : 1945 Planned Disposition: Home Anticipated Discharge Date: 04/19/19 Discharge Date: Expected LOS: 1 Initial Reviewer: [id number] Initial Review Date: 04/18/2019 Generated: 04/19/19 4:35 pm DCPIA - Discharge Planning Initial Assessment Updated by [id number]: Brandin Garcia on 04/19/19 3:31 pm * Is the patient Alert and Oriented? Yes * How many steps to enter\\exit or inside your home? NONE * PCP DR. ARACELI SIDHU * Pharmacy [facility] * Preadmission Environment Home with Family * ADLs Partial Dependent * Partial ADLs (Assistance needed) Ambulation Bathing Dressing Medication Management Toileting Transfers * Equipment Areli Lift Oxygen Wheelchair * Other Equipment HOME AND PORTABLE OXYGEN, [facility] * List name and contact numbers for known caregivers / representatives who currently or will assist patient after discharge: HANDY JONES, SISTER [phone] JORGE GORDON, SISTER, CHARLEY PHILLIPS, SON, * Verbal permission to speak to the caregivers and representatives has been obtained from the patient. Yes * Community resources currently utilized None * Please name any agencies selected above. PT HAD INTAKE WITH [facility] FROM [place], ACCORDING TO PT, THEY DECLINED T PROVIDE SERVICES UNTIL HE WAS "DOING BETTER". * Additional services required to return to the preadmission environment? No * Can the patient safely return to the preadmission environment? Yes * Has this patient been hospitalized within the prior 30 days at any hospital? Yes Coverage Notice Reviewer: [id number] - Deborah [place] Notice Issued Date-Time: 04/19/2019 9:30 Notice Type: Medicare Outpatient Observation Notice Notice Delivered To: Patient Relationship to Patient: Self Marine Mammal Trainer Name: Delivery Method: HAND - Hand Delivered Anusha Days: Prior Verbal Notification: Recipient Understood Notice: Yes Recipient Signature: Yes Med Rec Note Co-signed by Attending: Coverage Notice Comment: Patient Name: ABBY PHILLIPS Page [id number] at 1535 All edits/amendments must be made on the electronic document DICTATION DATE: 04/19/191534 JAVA ENGINEER: APRIL 04/19/191534 RPT#: [id number] DC DATE: STATUS: ADM IN [facility] [address] [place] [address] END OF REPORT
--- NOTE | 2019-04-19 15:48 | MORECARE ---
CASE MANAGEMENT DISCHARGE SUMMARY PATIENT: ABBY PHILLIPS UNIT: [id number] ADM DATE: 04/19/19 AGE: 73 : 49 SEX: M ROOM/BED: D.3028 AUTHOR: BYRON,DOC PHYSICIAN: REFERRING PHYSICIAN: SAMUEL COOPER MD DATE OF SERVICE: 04/19/19 Discharge Plan Patient Name: ABBY PHILLIPS Facility: [facility]:[place] : 1945 Planned Disposition: Home Anticipated Discharge Date: 04/19/19 Discharge Date: Expected LOS: 1 Initial Reviewer: [id number] Initial Review Date: 04/18/2019 Generated: 04/19/19 4:48 pm Comments DCP- Discharge Planning Updated by [email or web address]: Brandin Garcia on 04/19/19 2:[address] Patient Name: ABBY PHILLIPS Admission Status: ER Accout number: [id number] Admission Date: 04-19-2019 : 1945 Admission Diagnosis: Attending: SAMUEL COOPER Current LOS: 1 Anticipated DC Date: 04-19-2019 Planned Disposition: Home Primary Insurance: [facility] MEDICARE SOLUTIONS Discharge Planning Comments: CM MET WITH PT IN ROOM TO DISCUSS DISCHARGE PLANNING AND NEEDS. PT REPORTS LIVING AT HOME DEPENDENTLY WITH HIS SISTER HANDY WHO IS STAYING WITH PT IN PT'S HOME TO CARE FOR PT. . PT HAS ARELI LIFT AND WHEELCHAIR WELL HOME AND PORTABLE OXYGEN FROM [facility]. PT HAS NO OUTSIDE SERVICES ASSISTING IN THE HOME [facility] DECLINED TO ADMIT HIM AND TOLD HIM HE HAS TO BE DOING BETTER FOR HOME HEALTH SERVICES. CM DISCUSSED AVAILABILITY OF HOME HEALTH, REHAB SERVICES AND MEDICAL EQUIPMENT. PT DECLINED CUSTODIAL OR REHAB PLACEMENT. PT DENIES DISCHARGE NEEDS, REPORTS HIS SISTER HANDY WILL PICK HIM UP FOR DISCHARGE HOME. PT REPORTS MISSING DIALYSIS BECAUSE HE WENT ON THURSDAY AND THEY DID NOT HAVE A SLING TO USE ON THE LIFT TO PICK HIM UP AT THE DIALYSIS UNIT. PT STATES HE HAS A SLING AT HOME AND FORGOT ABOUT IT. PT REPORTS HIS SISTER USES THE ARELI LIFT TO GET HIM TO THE WHEELCHAIR AND THEY WILL LEAVE THE SLING UNDER HIM FOR DIALYSIS TO USE FROM NOW ON. CHOICE SIGNED FOR [facility] TO VERIFY WITH THEM THAT THEY WILL NOT SEE PT. CM CALLED [email or web address], , LEFT MESSAGE ASKING FOR THE NURSE TO CALL CM BACK. PT PLANS TO DISCHARGE HOME WITH HIS SISTER, PT REPORTS HIS SISTER WILL PICK HIM UP FOR DISCHARGE HOME. PT DECLINES CUSTODIAL, PRISON OR REHAB PLACEMENT. Geotechnical Engineering Technician: Brandin Garcia DCPIA - Discharge Planning Initial Assessment Updated by [id number]: Brandin Garcia on 04/19/19 3:31 pm * Is the patient Alert and Oriented? Yes * How many steps to enter\\exit or inside your home? NONE * PCP DR. ARACELI SIDHU * Pharmacy [facility] * Preadmission Environment Home with Family * ADLs Partial Dependent * Partial ADLs (Assistance needed) Ambulation Bathing Dressing Medication Management Toileting Transfers * Equipment Areli Lift Oxygen Wheelchair * Other Equipment HOME AND PORTABLE OXYGEN, [facility] * List name and contact numbers for known caregivers / representatives who currently or will assist patient after discharge: HANDY JONES, SISTER [phone] JORGE GORDON, SISTER, CHARLEY PHILLIPS, SON, * Verbal permission to speak to the caregivers and representatives has been obtained from the patient. Yes * Community resources currently utilized None * Please name any agencies selected above. PT HAD INTAKE WITH [facility] FROM [place], ACCORDING TO PT, THEY DECLINED T PROVIDE SERVICES UNTIL HE WAS "DOING BETTER". * Additional services required to return to the preadmission environment? No * Can the patient safely return to the preadmission environment? Yes * Has this patient been hospitalized within the prior 30 days at any hospital? Yes Coverage Notice Reviewer: [id number] - Deborah Augustin Notice Issued Date-Time: 04/19/2019 9:30 Notice Type: Medicare Outpatient Observation Notice Notice Delivered To: Patient Relationship to Patient: Self Plastic Mould Maker Name: Delivery Method: HAND - Hand Delivered Anusha Days: Prior Verbal Notification: Recipient Understood Notice: Yes Recipient Signature: Yes Med Rec Note Co-signed by Attending: Coverage Notice Comment: Reviewer: [id number] - Brandin Garcia Notice Issued Date-Time: 04/19/2019 12:15 Notice Type: Patient Choice Letter Notice Delivered To: Patient Relationship to Patient: Plastic Mould Maker Name: Delivery Method: HAND - Hand Delivered Anusha Days: Prior Verbal Notification: Recipient Understood Notice: Yes Recipient Signature: Yes Med Rec Note Co-signed by Attending: Coverage Notice Comment: [facility] Last DP export: 04/19/19 2:35 p Patient Name: ABBY PHILLIPS Page 01965 at 1548 All edits/amendments must be made on the electronic document DICTATION DATE: 04/19/191547 PASSENGER ATTENDANT: APRIL 04/19/191547 RPT#: [id number] DC DATE: STATUS: ADM IN [facility] [address] [place] [address] END OF REPORT
--- NOTE | 2019-04-19 17:03 | MORECARE ---
CASE MANAGEMENT DISCHARGE SUMMARY PATIENT: ABBY PHILLIPS UNIT: [id number] ADM DATE: 04/19/19 AGE: 73 : [birth year] SEX: M ROOM/BED: D.0091 AUTHOR: BYRON,DOC PHYSICIAN: REFERRING PHYSICIAN: SAMUEL COOPER MD DATE OF SERVICE: 04/19/19 Discharge Plan Patient Name: ABBY PHILLIPS Facility: [facility]:[place] : 1945 Planned Disposition: Home Anticipated Discharge Date: 04/19/19 Discharge Date: Expected LOS: 1 Initial Reviewer: [id number] Initial Review Date: 04/18/2019 Generated: 04/19/19 6:03 pm Comments DCP- Discharge Planning Updated by [id number]: Brandin Garcia on 04/19/19 3:[address] Patient Name: ABBY PHILLIPS Admission Status: ER Accout number: [id number] Admission Date: 04-19-2019 : 1945 Admission Diagnosis: Attending: SAMUEL COOPER Current LOS: 1 Anticipated DC Date: 04-19-2019 Planned Disposition: Home Primary Insurance: [facility] MEDICARE SOLUTIONS Discharge Planning Comments: CM MET WITH PT IN ROOM TO DISCUSS DISCHARGE PLANNING AND NEEDS. PT REPORTS LIVING AT HOME DEPENDENTLY WITH HIS SISTER HANDY WHO IS STAYING WITH PT IN PT'S HOME TO CARE FOR PT. . PT HAS HARSHAL LIFT AND WHEELCHAIR WELL HOME AND PORTABLE OXYGEN FROM [facility]. PT HAS NO OUTSIDE SERVICES ASSISTING IN THE HOME [facility] DECLINED TO ADMIT HIM AND TOLD HIM HE HAS TO BE DOING BETTER FOR HOME HEALTH SERVICES. CM DISCUSSED AVAILABILITY OF HOME HEALTH, REHAB SERVICES AND MEDICAL EQUIPMENT. PT DECLINED JAIL OR REHAB PLACEMENT. PT DENIES DISCHARGE NEEDS, REPORTS HIS SISTER HANDY WILL PICK HIM UP FOR DISCHARGE HOME. PT REPORTS MISSING DIALYSIS BECAUSE HE WENT ON THURSDAY AND THEY DID NOT HAVE A SLING TO USE ON THE LIFT TO PICK HIM UP AT THE DIALYSIS UNIT. PT STATES HE HAS A SLING AT HOME AND FORGOT ABOUT IT. PT REPORTS HIS SISTER USES THE HARSHAL LIFT TO GET HIM TO THE WHEELCHAIR AND THEY WILL LEAVE THE SLING UNDER HIM FOR DIALYSIS TO USE FROM NOW ON. CHOICE SIGNED FOR [facility] TO VERIFY WITH THEM THAT THEY WILL NOT SEE PT. CM CALLED [facility], , LEFT MESSAGE ASKING FOR THE NURSE TO CALL CM BACK. PT PLANS TO DISCHARGE HOME WITH HIS SISTER, PT REPORTS HIS SISTER WILL PICK HIM UP FOR DISCHARGE HOME. PT DECLINES JAIL, DETENTION OR REHAB PLACEMENT. Market Director: Brandin Garcia Appended by Brandin Garcia on 04/19/2019 16:56 CDT: CM RECEIVED CALL FROM JERICA OF [facility] WHO INFORMED CM THAT THEY DID GO FOR THE HOME HEALTH ADMIT AND INFORMED PT AND FAMILY THAT PT NEEDS REHAB AND IS NOT APPROPRIATE FOR HOME HEALTH SERVICES AT THIS TIME. PT PLANS TO DISCHARGE HOME WITH HIS SISTER, PT REPORTS HIS SISTER WILL PICK HIM UP FOR DISCHARGE HOME. PT DECLINES JAIL, DETENTION OR REHAB PLACEMENT. Market Director: Brandin Garcia DCPIA - Discharge Planning Initial Assessment Updated by [id number]: Brandin Garcia on 04/19/19 3:31 pm * Is the patient Alert and Oriented? Yes * How many steps to enter\\exit or inside your home? NONE * PCP DR. ARACELI SIDHU * Pharm[facility] * Preadmission Environment Home with Family * ADLs Partial Dependent * Partial ADLs (Assistance needed) Ambulation Bathing Dressing Medication Management Toileting Transfers * Equipment Harshal Lift Oxygen Wheelchair * Other Equipment HOME AND PORTABLE OXYGEN, [facility] * List name and contact numbers for known caregivers / representatives who currently or will assist patient after discharge: HANDY JONES, SISTER [phone] JORGE GORDON, SISTER, CHARLEY PHILLIPS, SON, * Verbal permission to speak to the caregivers and representatives has been obtained from the patient. Yes * Community resources currently utilized None * Please name any agencies selected above. PT HAD INTAKE WITH [facility] FROM [place], ACCORDING TO PT, THEY DECLINED T PROVIDE SERVICES UNTIL HE WAS "DOING BETTER". * Additional services required to return to the preadmission environment? No * Can the patient safely return to the preadmission environment? Yes * Has this patient been hospitalized within the prior 30 days at any hospital? Yes Coverage Notice Reviewer: [id number] - Deborah [place] Notice Issued Date-Time: 04/19/2019 9:30 Notice Type: Medicare Outpatient Observation Notice Notice Delivered To: Patient Relationship to Patient: Self Warp Dyeing Vat Tender Name: Delivery Method: HAND - Hand Delivered Anusha Days: Prior Verbal Notification: Recipient Understood Notice: Yes Recipient Signature: Yes Med Rec Note Co-signed by Attending: Coverage Notice Comment: Reviewer: [id number] Skylar Garcia Notice Issued Date-Time: 04/19/2019 12:15 Notice Type: Patient Choice Letter Notice Delivered To: Patient Relationship to Patient: Warp Dyeing Vat Tender Name: Delivery Method: HAND - Hand Delivered Anusha Days: Prior Verbal Notification: Recipient Understood Notice: Yes Recipient Signature: Yes Med Rec Note Co-signed by Attending: Coverage Notice Comment: [facility] Last DP export: 04/19/19 2:48 p Patient Name: ABBY PHILLIPS Page 99295 at 1703 All edits/amendments must be made on the electronic document DICTATION DATE: 04/19/191702 MACHINING SUPERVISOR: APRIL 04/19/191702 RPT#: [id number] DC DATE: STATUS: ADM IN [facility] [address] [place] [address] END OF REPORT
--- NOTE | 2019-04-19 17:22 | NUR ---
RETURN TO ROOM VIA BED. ALERT AND ORIENTED X4. CHECK WITH HERIBERTO LUU REGARDING DISCHARGE PLANNING PER PATIENT REQUEST. BELL STATES, "DUE TO ELEVATED WBC, WAIT TO DC UNTIL TOMORROW." NOTIFY PATIENT PLAN OF CARE. DENIES ANY OTHER NEEDS. CONTINUE PLAN OF CARE AND SAFETY PRECAUTIONS.
--- NOTE | 2019-04-19 19:11 | NUR ---
PATIENT IS AAO. WATCHING TV. PATENT DENIES ANY PAIN OR CONCERNS AT THIS TIME. NO SIGNS OF VISIBLE DISTRESS. BED IN THE LOWEST POSITION AND CALL LIGHT WITHIN REACH.
[2019-04-19 20:00] VITALS: BP 143/61
--- NOTE | 2019-04-19 20:39 | NUR ---
CALLED HERIBERTO SANCHES ABOUT PATIENT BP (191/101). Jason SANCHES ORDERED CLONIDINE 0.1MG Q4H PRN IF SYSTOLIC GREATER THAN 170 AND TO RESTART AMLODIPINE 5 MG PO DAILY IN THE MORNING (04/20).
[2019-04-20] VITALS: BP 148/60
[2019-04-20 04:00] VITALS: BP 161/57
[2019-04-20 06:01] LABS: ANION GAP 13.1 mmol/L (8-16); CALCIUM 7.5 mg/dL (8.5-10.1); CARBON DIOXIDE 29.3 mmol/L (21.0-32.0); CREATININE - SERUM 4.4 mg/dL (0.6-1.3); GENTAMICIN - RANDOM 1.5 ug/mL (0.5-2.0); PHOSPHOROUS 4.5 mg/dL (2.5-4.9); POTASSIUM - SERUM 3.4 mmol/L (3.5-5.1); VANCOMYCIN - RANDOM 11.1 ug/mL (10.0-20.0)
[2019-04-20 07:53] LABS: BASOPHILS 0.2 % (0-2); EOSINOPHILS 0.6 % (0-7); HEMATOCRIT 32.1 % (42.0-54.0); HEMOGLOBIN 9.8 g/dL (13.5-17.5); IMMATURE GRANULOCYTES 0.4 % (0-5); LYMPHOCYTES 19.1 % (15-50); MCH 25.3 pg (26.0-34.0); MCHC 30.5 g/dL (31.0-37.0); MCV 82.7 fL (80.0-100.0); MONOCYTES 11.4 % (2-11); NEUTROPHILS 68.3 % (40-80); PLATELET COUNT 383 10x3/uL (130-400); RBC 3.88 10x6/uL (4.20-6.10); RDW 16.8 % (11.5-14.5)
[2019-04-20 08:00] VITALS: BP 176/49
--- NOTE | 2019-04-20 08:59 | NUR ---
AM MEDS GIVEN AT THIS TIME. PT EATING BREAKFAST, RESPOSITIONED PT IN BED. PT STATING THAT HE IS SUPPOSE TO GET DIALYSIS AGAIN TODAY, WILL CALL DIALYSIS TO FIND OUT. PT DENIES ANY NEEDS AT THIS TIME. CALL LIGHT IN REACH, NAD NOTED,W ILL CONTINUE TO MONITOR.
--- NOTE | 2019-04-20 11:12 | NUR ---
CALLED PHARMACY AND SPOKE WITH MIGUEL A, INFORMED HER THAT I NEED HUMALOG FOR PT.
--- NOTE | 2019-04-20 11:42 | NUR ---
BLOOD SUGAR OF 266, 6UNITS OF HUMALOG GIVEN AT THIS TIME, PT ASKING TO SEE DOCTOR, INFORMED HIM THAT JIMMY THAO WITH [facility] WAS IN TO SEE HIM THIS AM AND ORDERED FOR HIM TO GO TO DIALYSIS FOR 2HRS TODAY. PT STATED THAT JIMMY DID NOT TALK TO HIM THIS AM. THIS NURSE SAW WHEN JIMMY THAO WENT IN PT'S ROOM. HELPED PT TO REPOSITION IN BED, CALL LIGHT IN REACH, NAD NOTED.
[2019-04-20 12:00] VITALS: BP 164/87
--- NOTE | 2019-04-20 14:01 | NUR ---
REPOSITIONED PT IN BED, PT DENIES ANY OTHER NEEDS AT THIS TIME. CALL LIGHT IN REACH, NAD NOTED, WILL CONITNUE TO MONITOR.
--- NOTE | 2019-04-20 14:38 | MORECARE ---
CASE MANAGEMENT DISCHARGE SUMMARY PATIENT: ABBY PHILLIPS UNIT: [id number] ADM DATE: 04/19/19 AGE: 73 : 49 SEX: M ROOM/BED: D.3768 AUTHOR: BYRON,DOC PHYSICIAN: REFERRING PHYSICIAN: SAMUEL COOPER MD DATE OF SERVICE: 04/20/19 Discharge Plan Patient Name: ABBY PHILLIPS Facility: [facility]:[place] : 1945 Planned Disposition: Home Anticipated Discharge Date: 04/19/19 Discharge Date: Expected LOS: 1 Initial Reviewer: [id number] Initial Review Date: 04/18/2019 Generated: 04/20/19 3:37 pm Comments DCP- Discharge Planning Updated by [id number]: Brandin Garcia on 04/20/19 1:[address] Patient Name: ABBY PHILLIPS Encounter No: [id number] : 1945 Primary Insurance: [facility] MEDICARE SOLUTIONS Anticipated DC Date: 04-19-2019 Planned Disposition: Home DCP follow-up note: CM MET WITH PT IN ROOM AND ENCOURAGED PT TO GO TO REHAB PRIOR TO DISCHARGE HOME. PT CONTINUES TO REFUSE AND REPORTS HIS SISTER WILL PICK HIM UP FOR DISCHARGE HOME. PT STATES HE MAY NEED OXYGEN FROM [facility] AGAIN TO GO HOME. CM EXPLAINED THAT IF HIS SISTER IS PICKING HIM UP AND SHE IS STAYING WITH PT IN PT'S HOME, SHE SHOULD BRING OXYGEN WITH HER. PT WILL REQUEST HIS SISTER BRING OXYGEN WITH HER. HARSHAL RECEIVED CALL FROM MIRIAM GORDON, , WHO INFORMED CM THAT PT HAS BEEN CALLING STATING HE IS GOING TO BE DISCHARGED TODAY AND NEEDS A RIDE HOME. JORGE STATES PT NEEDS TO GO BACK TO NURSING FACILITY FOR REHAB AND NOT HOME. HARSHAL EXPLAINED THAT CM CANNOT MAKE PT DO SOMETHING AGAINST PT'S WILL AND THAT IF PT IS NOT DEEMED INCOMPETENT BY A PHYSICIAN OR COURT, PT CAN MAKE BAD DECISIONS FOR HIMSELF. CM EXPLAINED HOW TO FILE FOR GUARDIANSHIP OF A PERSON AND THAT THIS WOULD HAVE TO BE GRANTED FOR ANYONE TO MAKE PT DO SOMETHING AGAINST HIS WILL. JORGE REPORTS UNDERSTANDING. PT PLANS TO DISCHARGE HOME WITH HIS SISTER, PT REPORTS HIS SISTER WILL PICK HIM UP FOR DISCHARGE HOME. PT DECLINES [facility], CARE HOME OR REHAB PLACEMENT. PATIENT IS NOT APPROPRIATE FOR HOME HEALTH PER [facility]. Teaching Music Lessons: Brandin Garcia DCP- Discharge Planning Updated by [email or web address]: Brandin Garcia on 04/19/19 3:[address] Patient Name: ABBY PHILLIPS Admission Status: ER Accout number: [id number] Admission Date: 04-19-2019 : 1945 Admission Diagnosis: Attending: SAMUEL COOPER Current LOS: 1 Anticipated DC Date: 04-19-2019 Planned Disposition: Home Primary Insurance: [facility] MEDICARE SOLUTIONS Discharge Planning Comments: CM MET WITH PT IN ROOM TO DISCUSS DISCHARGE PLANNING AND NEEDS. PT REPORTS LIVING AT HOME DEPENDENTLY WITH HIS SISTER HANDY WHO IS STAYING WITH PT IN PT'S HOME TO CARE FOR PT. . PT HAS ARELI LIFT AND WHEELCHAIR WELL HOME AND PORTABLE OXYGEN FROM [facility]. PT HAS NO OUTSIDE SERVICES ASSISTING IN THE HOME [facility] DECLINED TO ADMIT HIM AND TOLD HIM HE HAS TO BE DOING BETTER FOR HOME HEALTH SERVICES. CM DISCUSSED AVAILABILITY OF HOME HEALTH, REHAB SERVICES AND MEDICAL EQUIPMENT. PT DECLINED [facility] OR REHAB PLACEMENT. PT DENIES DISCHARGE NEEDS, REPORTS HIS SISTER HANDY WILL PICK HIM UP FOR DISCHARGE HOME. PT REPORTS MISSING DIALYSIS BECAUSE HE WENT ON THURSDAY AND THEY DID NOT HAVE A SLING TO USE ON THE LIFT TO PICK HIM UP AT THE DIALYSIS UNIT. PT STATES HE HAS A SLING AT HOME AND FORGOT ABOUT IT. PT REPORTS HIS SISTER USES THE ARELI LIFT TO GET HIM TO THE WHEELCHAIR AND THEY WILL LEAVE THE SLING UNDER HIM FOR DIALYSIS TO USE FROM NOW ON. CHOICE SIGNED FOR [facility] TO VERIFY WITH THEM THAT THEY WILL NOT SEE PT. CM CALLED [facility], , LEFT MESSAGE ASKING FOR THE NURSE TO CALL CM BACK. PT PLANS TO DISCHARGE HOME WITH HIS SISTER, PT REPORTS HIS SISTER WILL PICK HIM UP FOR DISCHARGE HOME. PT DECLINES [facility], CARE HOME OR REHAB PLACEMENT. Teaching Music Lessons: Brandin Garcia Appended by Brandin Garcia on 04/19/2019 16:56 CDT: CM RECEIVED CALL FROM JERICA OF [facility] WHO INFORMED CM THAT THEY DID GO FOR THE HOME HEALTH ADMIT AND INFORMED PT AND FAMILY THAT PT NEEDS REHAB AND IS NOT APPROPRIATE FOR HOME HEALTH SERVICES AT THIS TIME. PT PLANS TO DISCHARGE HOME WITH HIS SISTER, PT REPORTS HIS SISTER WILL PICK HIM UP FOR DISCHARGE HOME. PT DECLINES [facility], CARE HOME OR REHAB PLACEMENT. Teaching Music Lessons: Brandin Garcia DCPIA - Discharge Planning Initial Assessment Updated by [id number]: Brandin Garcia on 04/19/19 3:31 pm * Is the patient Alert and Oriented? Yes * How many steps to enter\\exit or inside your home? NONE * PCP DR. ARACELI SIDHU * Pharmacy [facility] * Preadmission Environment Home with Family * ADLs Partial Dependent * Partial ADLs (Assistance needed) Ambulation Bathing Dressing Medication Management Toileting Transfers * Equipment Areli Lift Oxygen Wheelchair * Other Equipment HOME AND PORTABLE OXYGEN, [facility] * List name and contact numbers for known caregivers / representatives who currently or will assist patient after discharge: HANDY JONES, SISTER [phone] JORGE GORDON, SISTER, CHARLEY PHILLIPS, SON, * Verbal permission to speak to the caregivers and representatives has been obtained from the patient. Yes * Community resources currently utilized None * Please name any agencies selected above. PT HAD INTAKE WITH [facility] FROM [place], ACCORDING TO PT, THEY DECLINED T PROVIDE SERVICES UNTIL HE WAS "DOING BETTER". * Additional services required to return to the preadmission environment? No * Can the patient safely return to the preadmission environment? Yes * Has this patient been hospitalized within the prior 30 days at any hospital? Yes Coverage Notice Reviewer: [id number] - Deborah [place] Notice Issued Date-Time: 04/19/2019 9:30 Notice Type: Medicare Outpatient Observation Notice Notice Delivered To: Patient Relationship to Patient: Self Chief Supply Chain Officer Name: Delivery Method: HAND - Hand Delivered Anusha Days: Prior Verbal Notification: Recipient Understood Notice: Yes Recipient Signature: Yes Med Rec Note Co-signed by Attending: Coverage Notice Comment: Reviewer: [id number] - Brandin Garcia Notice Issued Date-Time: 04/19/2019 12:15 Notice Type: Patient Choice Letter Notice Delivered To: Patient Relationship to Patient: Chief Supply Chain Officer Name: Delivery Method: HAND - Hand Delivered Anusha Days: Prior Verbal Notification: Recipient Understood Notice: Yes Recipient Signature: Yes Med Rec Note Co-signed by Attending: Coverage Notice Comment: [facility] Last DP export: 04/19/19 4:03 p Patient Name: ABBY PHILLIPS Page 18703 at 1438 All edits/amendments must be made on the electronic document DICTATION DATE: 04/20/191436 BEACH PATROL LIEUTENANT: APRIL 04/20/191436 RPT#: [id number] DC DATE: STATUS: ADM IN [facility] [address] [facility] [place] [address] END OF REPORT
[2019-04-20 16:00] VITALS: BP 124/46
--- NOTE | 2019-04-20 19:21 | NUR ---
BEDSIDE REPORT RECEIVED, PT CARE ASSUMED. INTRODUCED SELF AND WROTE NAME ON BOARD. PT LYING IN BED, AAOX4, DENIES ANY NEEDS AT THIS TIME. DR. PATEL AT BEDSIDE. BED IN LOWEST POSITION, SR X2, CALL LIGHT WITHIN REACH. WILL CONTINUE TO MONITOR.
[2019-04-20 20:18] VITALS: Ht 168.9 cm; Wt 71.1 kg
[2019-04-20 20:35] VITALS: BP 183/54
--- NOTE | 2019-04-20 20:44 | NUR ---
ASSISTED PT TO DIALYSIS VIA BED WITH MARYSOL GERARD.
--- NOTE | 2019-04-20 23:41 | NUR ---
PT BACK TO ROOM VIA BED ACCOMPANIED BY MARYSOL GERARD. FSBS 166, REFUSED INSULIN. NIGHT TIME MEDS ADMINSITERED, PER ORDER. OFFERED SNACK, PT ACCEPTED. DENIES ANY OTHER NEEDS AT THIS TIME. BED IN LOWEST POSITION, SR X3, CALL LIGHT WITHIN REACH. WILL CONTINUE TO MONITOR.
[2019-04-21 00:45] VITALS: BP 144/63
--- NOTE | 2019-04-21 02:26 | NUR ---
PT LYING IN BED AWAKE, REQUESTED EXTRA BLANKET. TOOK EXTRA BLANKET TO PT. PT DENIES ANY OTHER NEEDS AT THIS TIME. BED IN LOWEST POSITION, SR X3, CALL LIGHT WITHIN REACH. WILL CONTINUE TO MONITOR.
[2019-04-21 04:30] VITALS: BP 160/64
[2019-04-21 04:49] LABS: BASOPHILS 0.2 % (0-2); EOSINOPHILS 0.5 % (0-7); HEMATOCRIT 31.2 % (42.0-54.0); HEMOGLOBIN 9.5 g/dL (13.5-17.5); IMMATURE GRANULOCYTES 0.5 % (0-5); MCH 25.5 pg (26.0-34.0); MCHC 30.4 g/dL (31.0-37.0); MCV 83.6 fL (80.0-100.0); MEAN PLATELET VOLUME 9.7 fL (7.4-10.4); MONOCYTES 10.6 % (2-11); NEUTROPHILS 70.2 % (40-80); PLATELET COUNT 330 10x3/uL (130-400); RBC 3.73 10x6/uL (4.20-6.10); RDW 16.8 % (11.5-14.5); WBC 12.2 10x3/uL (4.8-10.8)
[2019-04-21 05:21] LABS: CARBON DIOXIDE 29.4 mmol/L (21.0-32.0); CREATININE - SERUM 3.3 mg/dL (0.6-1.3); VANCOMYCIN - RANDOM 15.4 ug/mL (10.0-20.0)
[2019-04-21 05:22] LABS: ANION GAP 9.6 mmol/L (8-16); CALCIUM 7.6 mg/dL (8.5-10.1); PHOSPHOROUS 2.3 mg/dL (2.5-4.9)
--- NOTE | 2019-04-21 07:50 | NUR ---
REPORT RECIEVED. PT LYING FOWLERS. HE HAS A R WRIST PIV THAT IS SL. HE STATES HE IS READY TO GO HOME. RR EVEN AND UNLABORED ON 2L NC. HE HAS A R CHEST HEMO SPLIT AND A L AV FISTULA WHICH MAKES HIM A L ARM RESERVE. HE ALSO HAS A PEG TUBE WHICH WE ARE NOT USING. BED LOCKED AND IN LOWEST POSITION, CALL LIGHT WITHIN REACH. WILL CTM
--- NOTE | 2019-04-21 08:24 | MORECARE ---
CASE MANAGEMENT DISCHARGE SUMMARY PATIENT: ABBY PHILLIPS UNIT: [id number] ADM DATE: 04/19/19 AGE: 73 : [birth year] SEX: M ROOM/BED: D.0455 AUTHOR: BYRON,DOC PHYSICIAN: REFERRING PHYSICIAN: SAMUEL COOPER MD DATE OF SERVICE: 04/21/19 Discharge Plan Patient Name: ABBY PHILLIPS Facility: [facility]:[place] : 1945 Planned Disposition: Home Anticipated Discharge Date: 04/19/19 Discharge Date: Expected LOS: 1 Initial Reviewer: [id number] Initial Review Date: 04/18/2019 Generated: 04/21/19 9:24 am Comments DCP- Discharge Planning Updated by [id number]: Brandin Garcia on 04/20/19 1:[address] Patient Name: ABBY PHILLIPS Encounter No: [id number] : 1945 Primary Insurance: [place] MEDIC[employer] SOLUTIONS Anticipated DC Date: 04-19-2019 Planned Disposition: Home DCP follow-up note: CM MET WITH PT IN ROOM AND ENCOURAGED PT TO GO TO REHAB PRIOR TO DISCHARGE HOME. PT CONTINUES TO REFUSE AND REPORTS HIS SISTER WILL PICK HIM UP FOR DISCHARGE HOME. PT STATES HE MAY NEED OXYGEN FROM [facility] AGAIN TO GO HOME. CM EXPLAINED THAT IF HIS SISTER IS PICKING HIM UP AND SHE IS STAYING WITH PT IN PT'S HOME, SHE SHOULD BRING OXYGEN WITH HER. PT WILL REQUEST HIS SISTER BRING OXYGEN WITH HER. HARSHAL RECEIVED CALL FROM MIRIAM GORDON, , WHO INFORMED CM THAT PT HAS BEEN CALLING STATING HE IS GOING TO BE DISCHARGED TODAY AND NEEDS A RIDE HOME. JORGE STATES PT NEEDS TO GO BACK TO NURSING FACILITY FOR REHAB AND NOT HOME. HARSHAL EXPLAINED THAT CM CANNOT MAKE PT DO SOMETHING AGAINST PT'S WILL AND THAT IF PT IS NOT DEEMED INCOMPETENT BY A PHYSICIAN OR COURT, PT CAN MAKE BAD DECISIONS FOR HIMSELF. CM EXPLAINED HOW TO FILE FOR GUARDIANSHIP OF A PERSON AND THAT THIS WOULD HAVE TO BE GRANTED FOR ANYONE TO MAKE PT DO SOMETHING AGAINST HIS WILL. JORGE REPORTS UNDERSTANDING. PT PLANS TO DISCHARGE HOME WITH HIS SISTER, PT REPORTS HIS SISTER WILL PICK HIM UP FOR DISCHARGE HOME. PT DECLINES PENITENTIARY, [facility]PC OR REHAB PLACEMENT. PATIENT IS NOT APPROPRIATE FOR HOME HEALTH PER [facility]. Workers Compensation Claims Examiner: Brandin Garcia DCP- Discharge Planning Updated by [email or web address]: Brandin Garcia on 04/19/19 3:[address] Patient Name: ABBY PHILLIPS Admission Status: ER Accout number: [id number] Admission Date: 04-19-2019 : 1945 Admission Diagnosis: Attending: SAMUEL COOPER Current LOS: 1 Anticipated DC Date: 04-19-2019 Planned Disposition: Home Primary Insurance: [place] [employer] Discharge Planning Comments: CM MET WITH PT IN ROOM TO DISCUSS DISCHARGE PLANNING AND NEEDS. PT REPORTS LIVING AT HOME DEPENDENTLY WITH HIS SISTER HANDY WHO IS STAYING WITH PT IN PT'S HOME TO CARE FOR PT. . PT HAS ARELI LIFT AND WHEELCHAIR WELL HOME AND PORTABLE OXYGEN FROM [facility]. PT HAS NO OUTSIDE SERVICES ASSISTING IN THE HOME [facility] DECLINED TO ADMIT HIM AND TOLD HIM HE HAS TO BE DOING BETTER FOR HOME HEALTH SERVICES. CM DISCUSSED AVAILABILITY OF HOME HEALTH, REHAB SERVICES AND MEDICAL EQUIPMENT. PT DECLINED PENITENTIARY OR REHAB PLACEMENT. PT DENIES DISCHARGE NEEDS, REPORTS HIS SISTER HANDY WILL PICK HIM UP FOR DISCHARGE HOME. PT REPORTS MISSING DIALYSIS BECAUSE HE WENT ON THURSDAY AND THEY DID NOT HAVE A SLING TO USE ON THE LIFT TO PICK HIM UP AT THE DIALYSIS UNIT. PT STATES HE HAS A SLING AT HOME AND FORGOT ABOUT IT. PT REPORTS HIS SISTER USES THE ARELI LIFT TO GET HIM TO THE WHEELCHAIR AND THEY WILL LEAVE THE SLING UNDER HIM FOR DIALYSIS TO USE FROM NOW ON. CHOICE SIGNED FOR [facility] TO VERIFY WITH THEM THAT THEY WILL NOT SEE PT. CM CALLED [facility], , LEFT MESSAGE ASKING FOR THE NURSE TO CALL CM BACK. PT PLANS TO DISCHARGE HOME WITH HIS SISTER, PT REPORTS HIS SISTER WILL PICK HIM UP FOR DISCHARGE HOME. PT DECLINES PENITENTIARY, FPC OR REHAB PLACEMENT. Workers Compensation Claims Examiner: Brandin Garcia Appended by Brandin Garcia on 04/19/2019 16:56 CDT: CM RECEIVED CALL FROM JERICA OF [facility] WHO INFORMED CM THAT THEY DID GO FOR THE HOME HEALTH ADMIT AND INFORMED PT AND FAMILY THAT PT NEEDS REHAB AND IS NOT APPROPRIATE FOR HOME HEALTH SERVICES AT THIS TIME. PT PLANS TO DISCHARGE HOME WITH HIS SISTER, PT REPORTS HIS SISTER WILL PICK HIM UP FOR DISCHARGE HOME. PT DECLINES PENITENTIARY, FPC OR REHAB PLACEMENT. Workers Compensation Claims Examiner: Brandin Garcia DCPIA - Discharge Planning Initial Assessment Updated by [id number]: Brandin Garcia on 04/19/19 3:31 pm * Is the patient Alert and Oriented? Yes * How many steps to enter\\exit or inside your home? NONE * PCP DR. ARACELI SIDHU * Pharmacy [facility] * Preadmission Environment Home with Family * ADLs Partial Dependent * Partial ADLs (Assistance needed) Ambulation Bathing Dressing Medication Management Toileting Transfers * Equipment Areli Lift Oxygen Wheelchair * Other Equipment HOME AND PORTABLE OXYGEN, [facility] * List name and contact numbers for known caregivers / representatives who currently or will assist patient after discharge: HANDY JONES, SISTER [phone] JORGE GORDON, SISTER, CHARLEY PHILLIPS, SON, * Verbal permission to speak to the caregivers and representatives has been obtained from the patient. Yes * Community resources currently utilized None * Please name any agencies selected above. PT HAD INTAKE WITH [facility], ACCORDING TO PT, THEY DECLINED T PROVIDE SERVICES UNTIL HE WAS "DOING BETTER". * Additional services required to return to the preadmission environment? No * Can the patient safely return to the preadmission environment? Yes * Has this patient been hospitalized within the prior 30 days at any hospital? Yes Coverage Notice Reviewer: [id number] - Deborah Augustin Notice Issued Date-Time: 04/19/2019 9:30 Notice Type: Medicare Outpatient Observation Notice Notice Delivered To: Patient Relationship to Patient: Self Train Starter Name: Delivery Method: HAND - Hand Delivered Anusha Days: Prior Verbal Notification: Recipient Understood Notice: Yes Recipient Signature: Yes Med Rec Note Co-signed by Attending: Coverage Notice Comment: Reviewer: [id number] - Brandin Garcia Notice Issued Date-Time: 04/19/2019 12:15 Notice Type: Patient Choice Letter Notice Delivered To: Patient Relationship to Patient: Train Starter Name: Delivery Method: HAND - Hand Delivered Anusha Days: Prior Verbal Notification: Recipient Understood Notice: Yes Recipient Signature: Yes Med Rec Note Co-signed by Attending: Coverage Notice Comment: [facility] Last DP export: 04/20/19 1:38 p Patient Name: ABBY PHILLIPS Page 76589 at 0824 All edits/amendments must be made on the electronic document DICTATION DATE: 04/21/19823 LANDSCAPE CONTRACTOR: APRIL 04/21/19823 RPT#: [id number] DC DATE: STATUS: ADM IN [facility] [address] [facility] [place] [address] END OF REPORT
[2019-04-21 08:55] VITALS: BP 166/56
--- NOTE | 2019-04-21 09:45 | MORECARE ---
CASE MANAGEMENT DISCHARGE SUMMARY PATIENT: ABBY PHILLIPS UNIT: [id number] ADM DATE: 04/19/19 AGE: 73 : [birth year] SEX: M ROOM/BED: D.3846 AUTHOR: BYRONDOC PHYSICIAN: REFERRING PHYSICIAN: SAMUEL COOPER MD DATE OF SERVICE: 04/21/19 Discharge Plan Patient Name: ABBY PHILLIPS Facility: [facility]:[place] : 1945 Planned Disposition: Left Against Medical Advice Anticipated Discharge Date: 04/21/19 Discharge Date: Expected LOS: 2 Initial Reviewer: [id number] Initial Review Date: 04/18/2019 Generated: 04/21/19 10:44 am Comments DCP- Discharge Planning Updated by [id number]: Brandin Garcia on 04/20/19 1:[address] Patient Name: ABBY PHILLIPS Encounter No: [id number] : 1945 Primary Insurance: [facility] MEDICARE SOLUTIONS Anticipated DC Date: 04-19-2019 Planned Disposition: Home DCP follow-up note: CM MET WITH PT IN ROOM AND ENCOURAGED PT TO GO TO REHAB PRIOR TO DISCHARGE HOME. PT CONTINUES TO REFUSE AND REPORTS HIS SISTER WILL PICK HIM UP FOR DISCHARGE HOME. PT STATES HE MAY NEED OXYGEN FROM [facility] AGAIN TO GO HOME. CM EXPLAINED THAT IF HIS SISTER IS PICKING HIM UP AND SHE IS STAYING WITH PT IN PT'S HOME, SHE SHOULD BRING OXYGEN WITH HER. PT WILL REQUEST HIS SISTER BRING OXYGEN WITH HER. HARSHAL RECEIVED CALL FROM MIRIAM GORDON, , WHO INFORMED CM THAT PT HAS BEEN CALLING STATING HE IS GOING TO BE DISCHARGED TODAY AND NEEDS A RIDE HOME. JORGE STATES PT NEEDS TO GO BACK TO NURSING FACILITY FOR REHAB AND NOT HOME. HARSHAL EXPLAINED THAT CM CANNOT MAKE PT DO SOMETHING AGAINST PT'S WILL AND THAT IF PT IS NOT DEEMED INCOMPETENT BY A PHYSICIAN OR COURT, PT CAN MAKE BAD DECISIONS FOR HIMSELF. HARSHAL EXPLAINED HOW TO FILE FOR GUARDIANSHIP OF A PERSON AND THAT THIS WOULD HAVE TO BE GRANTED FOR ANYONE TO MAKE PT DO SOMETHING AGAINST HIS WILL. JORGE REPORTS UNDERSTANDING. PT PLANS TO DISCHARGE HOME WITH HIS SISTER, PT REPORTS HIS SISTER WILL PICK HIM UP FOR DISCHARGE HOME. PT DECLINES USP, SNF OR REHAB PLACEMENT. PATIENT IS NOT APPROPRIATE FOR HOME HEALTH PER [facility]. Per Diem Interpreter: Brandin Garcia DCP- Discharge Planning Updated by [id number]: Brandin Garcia on 04/19/19 3:[address] Patient Name: ABBY PHILLIPS Admission Status: ER Accout number: [id number] Admission Date: 04-19-2019 : 1945 Admission Diagnosis: Attending: SAMUEL COOPER Current LOS: 1 Anticipated DC Date: 04-19-2019 Planned Disposition: Home Primary Insurance: [facility] MEDICARE SOLUTIONS Discharge Planning Comments: CM MET WITH PT IN ROOM TO DISCUSS DISCHARGE PLANNING AND NEEDS. PT REPORTS LIVING AT HOME DEPENDENTLY WITH HIS SISTER HANDY WHO IS STAYING WITH PT IN PT'S HOME TO CARE FOR PT. . PT HAS [employer] LIFT AND WHEELCHAIR WELL HOME AND PORTABLE OXYGEN FROM [facility]. PT HAS NO OUTSIDE SERVICES ASSISTING IN THE HOME [facility] DECLINED TO ADMIT HIM AND TOLD HIM HE HAS TO BE DOING BETTER FOR HOME HEALTH SERVICES. CM DISCUSSED AVAILABILITY OF HOME HEALTH, REHAB SERVICES AND MEDICAL EQUIPMENT. PT DECLINED USP OR REHAB PLACEMENT. PT DENIES DISCHARGE NEEDS, REPORTS HIS SISTER HANDY WILL PICK HIM UP FOR DISCHARGE HOME. PT REPORTS MISSING DIALYSIS BECAUSE HE WENT ON THURSDAY AND THEY DID NOT HAVE A SLING TO USE ON THE LIFT TO PICK HIM UP AT THE DIALYSIS UNIT. PT STATES HE HAS A SLING AT HOME AND FORGOT ABOUT IT. PT REPORTS HIS SISTER USES THE HARSHAL LIFT TO GET HIM TO THE WHEELCHAIR AND THEY WILL LEAVE THE SLING UNDER HIM FOR DIALYSIS TO USE FROM NOW ON. CHOICE SIGNED FOR [facility] TO VERIFY WITH THEM THAT THEY WILL NOT SEE PT. CM CALLED [facility], , LEFT MESSAGE ASKING FOR THE NURSE TO CALL CM BACK. PT PLANS TO DISCHARGE HOME WITH HIS SISTER, PT REPORTS HIS SISTER WILL PICK HIM UP FOR DISCHARGE HOME. PT DECLINES USP, SNF OR REHAB PLACEMENT. Per Diem Interpreter: Brandin Garcia Appended by Brandin Garcia on 04/19/2019 16:56 CDT: CM RECEIVED CALL FROM JERICA OF [facility] WHO INFORMED CM THAT THEY DID GO FOR THE HOME HEALTH ADMIT AND INFORMED PT AND FAMILY THAT PT NEEDS REHAB AND IS NOT APPROPRIATE FOR HOME HEALTH SERVICES AT THIS TIME. PT PLANS TO DISCHARGE HOME WITH HIS SISTER, PT REPORTS HIS SISTER WILL PICK HIM UP FOR DISCHARGE HOME. PT DECLINES USP, SNF OR REHAB PLACEMENT. Per Diem Interpreter: Brandin Garcia DCPIA - Discharge Planning Initial Assessment Updated by [id number]: Brandin Garcia on 04/19/19 3:31 pm * Is the patient Alert and Oriented? Yes * How many steps to enter\\exit or inside your home? NONE * PCP DR. ARACELI SIDHU * [facility] * Preadmission Environment Home with Family * ADLs Partial Dependent * Partial ADLs (Assistance needed) Ambulation Bathing Dressing Medication Management Toileting Transfers * Equipment Harshal Lift Oxygen Wheelchair * Other Equipment HOME AND PORTABLE OXYGEN, [facility] * List name and contact numbers for known caregivers / representatives who currently or will assist patient after discharge: HANDY JONES, SISTER [phone] JORGE GORDON, SISTER, CHARLEY PHILLIPS, SON, * Verbal permission to speak to the caregivers and representatives has been obtained from the patient. Yes * Community resources currently utilized None * Please name any agencies selected above. PT HAD INTAKE WITH [facility] FROM [facility], ACCORDING TO PT, THEY DECLINED T PROVIDE SERVICES UNTIL HE WAS "DOING BETTER". * Additional services required to return to the preadmission environment? No * Can the patient safely return to the preadmission environment? Yes * Has this patient been hospitalized within the prior 30 days at any hospital? Yes Coverage Notice Reviewer: [id number] - Deborah Augustin Notice Issued Date-Time: 04/19/2019 9:30 Notice Type: Medicare Outpatient Observation Notice Notice Delivered To: Patient Relationship to Patient: Self Wreath Machine Operator Name: Delivery Method: HAND - Hand Delivered Anusha Days: Prior Verbal Notification: Recipient Understood Notice: Yes Recipient Signature: Yes Med Rec Note Co-signed by Attending: Coverage Notice Comment: Reviewer: [id number] - Brandin Garcia Notice Issued Date-Time: 04/19/2019 12:15 Notice Type: Patient Choice Letter Notice Delivered To: Patient Relationship to Patient: Wreath Machine Operator Name: Delivery Method: HAND - Hand Delivered Anusha Days: Prior Verbal Notification: Recipient Understood Notice: Yes Recipient Signature: Yes Med Rec Note Co-signed by Attending: Coverage Notice Comment: [employer] Last DP export: 04/21/19 7:24 Patient Name: ABBY PHILLIPS Page [id number] at 0945 All edits/amendments must be made on the electronic document DICTATION DATE: 04/21/19943 OUTSIDE EVENT SALES SPECIALIST: APRIL 04/21/19943 RPT#: [id number] DC DATE: STATUS: ADM IN [facility] [address] [place] [address] END OF REPORT
--- NOTE | 2019-04-21 09:59 | MORECARE ---
CASE MANAGEMENT DISCHARGE SUMMARY PATIENT: ABBY PHILLIPS UNIT: [id number] ADM DATE: 04/19/19 AGE: 73 : [birth year] SEX: M ROOM/BED: D.1177 AUTHOR: BYRON,DOC PHYSICIAN: REFERRING PHYSICIAN: SAMUEL COOPER MD DATE OF SERVICE: 04/21/19 Discharge Plan Patient Name: ABBY PHILLIPS Facility: [facility]:[place] : 1945 Planned Disposition: Left Against Medical Advice Anticipated Discharge Date: 04/21/19 Discharge Date: Expected LOS: 2 Initial Reviewer: [id number] Initial Review Date: 04/18/2019 Generated: 04/21/19 10:59 am Comments DCP- Discharge Planning Updated by [id number]: Brandin Garcia on 04/21/19 8:[address] Patient Name: ABBY PHILLIPS Encounter No: [id number] : 1945 Primary Insurance: [facility] MEDICARE SOLUTIONS Anticipated DC Date: 04-21-2019 Planned Disposition: Left Against Medical Advice DCP follow-up note: CM SPOKE TO HERIBERTO SANCHES REGARDING PT'S DISCHARGE PLAN. TREATMENT TEAM CONCERNED THAT PT DOES NOT HAVE SAFE DISCHARGE PLAN. CM MET WITH HERIBERTO SANCHES WITH PT IN ROOM. PT INSISTS THAT HE WILL GO HOME, JOHN SANCHES, , WILL PICK HIM UP. PT REPORTS ALEXSANDRA LOPEZ, A FRIEND FROM [place] WILL ASSIST WITH CARING FOR PT IN HOME AND ASSIST WITH GETTING TO AND FROM DIALYSIS. PT REPORTS HE NORMALLY DRIVES HIMSELF TO AND FROM DIALYSIS AND IS ABLE TO TRANSFER HIMSELF TO A WHEELCHAIR, GET TO HIS CAR, GET THE WHEELCHAIR INTO THE TRUCK OF THE CAR AND THEN WALK TO AND GET INTO THE DRIVERS SEAT HOLDING ON TO THE CAR. PT REPORTS HAVING ELECTRIC AND MANUAL WHEELCHAIR AND IS ABLE TO TRANSFER HIMSELF FROM BED TO CHAIR AND CHAIR TO BED. PT DOES NOT KNOW THE NUMBER TO HIS FRIEND ALEXSANDRA, TO VERIFY HE WILL ASSIST AFTER DISCHARGE. PT REPORTS HIS SISTER HANDY LIVES IN HIS HOUSE AND HAS FOR FOUR MONTHS. CM ADVISED THAT FAMILY INFORMED STAFF HERE THAT PT NEEDS NURSING REHAB. PT REPORTS THAT HIS FAMILY IS WANTING TO KEEP HIM AWAY AND IN THE PRISON. HERIBERTO SANCHES ADVISED THAT PT MUST HAVE A SAFE AND VERIFIABLE PLAN TO DISCHARGE HOME. CM ATTEMPTED TO CALL [facility], ; THERE WAS NO ANSWER AND NO MESSAGE MACHINE. CM CALLED [facility], , SPOKE TO SKIVER COUNTER RAYNE WHO INFORMED CM THAT THEY CAN DELIVER PORTABLE OXYGEN TO PT'S ROOM FOR DISCHARGE IF NEEDED. HARSHAL SPOKE TO PT IN ROOM, HERIBERTO SANCHES WAS IN ROOM SPEAKING TO PT. PT STATES HE IS LEAVING "AMA". HERIBERTO SANCHES INFORMED PT THAT PT MUST HAVE A PERSON TO VERIFY THEY ARE TRANSPORTING PRIOR TO ANY AMA FORMS BEING PRESENTED. CM ADVISED PT IF HE IS ABLE TO VERIFY TRANSPORATATION BY CM SPEAKING TO THAT PERSON AND THEY AGREE TO SCUBA DIVING TEACHER PT, CM WILL ASK JEANNIE TO DELIVER PORTABLE OXYGEN TO ROOM. CM ASKED THAT IF PT CHANGES HIS MIND AND DECIDES TO GO TO LONGTERM REHAB, TO PLEASE NOTIFY CM AND CM WILL BE GLAD TO ASSIST WITH PLACEMENT. PT DECLINED. CM WAITING ON PT TO DEVELOP TRANSPORTATION HOME. IF TRANSPORTATION IS VERIFIED, CALL JEANNIE, , WILL HAS AGREED TO ARRANGE PORTABLE OXGYEN TO HOSPITAL FOR PT TO LEAVE HOSPITAL. CM TO CONTINUE TO FOLLOW AND ASSIST NEEDED. Intelligence Applications: Brandin Garcia DCP- Discharge Planning Updated by [id number]: Brandin Garcia on 04/20/19 1:[address] Patient Name: ABBY PHILLIPS Encounter No: [id number] : 1945 Primary Insurance: [facility] MEDICARE SOLUTIONS Anticipated DC Date: 04-19-2019 Planned Disposition: Home DCP follow-up note: HARSHAL MET WITH PT IN ROOM AND ENCOURAGED PT TO GO TO REHAB PRIOR TO DISCHARGE HOME. PT CONTINUES TO REFUSE AND REPORTS HIS SISTER WILL PICK HIM UP FOR DISCHARGE HOME. PT STATES HE MAY NEED OXYGEN FROM [facility] AGAIN TO GO HOME. HARSHAL EXPLAINED THAT IF HIS SISTER IS PICKING HIM UP AND SHE IS STAYING WITH PT IN PT'S HOME, SHE SHOULD BRING OXYGEN WITH HER. PT WILL REQUEST HIS SISTER BRING OXYGEN WITH HER. HARSHAL RECEIVED CALL FROM MIRIAM GORDON, , WHO INFORMED CM THAT PT HAS BEEN CALLING STATING HE IS GOING TO BE DISCHARGED TODAY AND NEEDS A RIDE HOME. JORGE STATES PT NEEDS TO GO BACK TO NURSING FACILITY FOR REHAB AND NOT HOME. CM EXPLAINED THAT CM CANNOT MAKE PT DO SOMETHING AGAINST PT'S WILL AND THAT IF PT IS NOT DEEMED INCOMPETENT BY A PHYSICIAN OR COURT, PT CAN MAKE BAD DECISIONS FOR HIMSELF. CM EXPLAINED HOW TO FILE FOR GUARDIANSHIP OF A PERSON AND THAT THIS WOULD HAVE TO BE GRANTED FOR ANYONE TO MAKE PT DO SOMETHING AGAINST HIS WILL. JORGE REPORTS UNDERSTANDING. PT PLANS TO DISCHARGE HOME WITH HIS SISTER, PT REPORTS HIS SISTER WILL PICK HIM UP FOR DISCHARGE HOME. PT DECLINES PRISON, LONGTERM OR REHAB PLACEMENT. PATIENT IS NOT APPROPRIATE FOR HOME HEALTH PER [facility]. Intelligence Applications: Brandin Garcia DCP- Discharge Planning Updated by [id number]: Brandin Garcia on 04/19/19 3:[address] Patient Name: ABBY PHILLIPS Admission Status: ER Accout number: [id number] Admission Date: 04-19-2019 : 1945 Admission Diagnosis: Attending: SAMUEL COOPER Current LOS: 1 Anticipated DC Date: 04-19-2019 Planned Disposition: Home Primary Insurance: [facility] MEDICARE SOLUTIONS Discharge Planning Comments: CM MET WITH PT IN ROOM TO DISCUSS DISCHARGE PLANNING AND NEEDS. PT REPORTS LIVING AT HOME DEPENDENTLY WITH HIS SISTER HANDY WHO IS STAYING WITH PT IN PT'S HOME TO CARE FOR PT. . PT HAS [employer] LIFT AND WHEELCHAIR WELL HOME AND PORTABLE OXYGEN FROM [facility]. PT HAS NO OUTSIDE SERVICES ASSISTING IN THE HOME [facility] DECLINED TO ADMIT HIM AND TOLD HIM HE HAS TO BE DOING BETTER FOR HOME HEALTH SERVICES. CM DISCUSSED AVAILABILITY OF HOME HEALTH, REHAB SERVICES AND MEDICAL EQUIPMENT. PT DECLINED PRISON OR REHAB PLACEMENT. PT DENIES DISCHARGE NEEDS, REPORTS HIS SISTER HANDY WILL PICK HIM UP FOR DISCHARGE HOME. PT REPORTS MISSING DIALYSIS BECAUSE HE WENT ON THURSDAY AND THEY DID NOT HAVE A SLING TO USE ON THE LIFT TO PICK HIM UP AT THE DIALYSIS UNIT. PT STATES HE HAS A SLING AT HOME AND FORGOT ABOUT IT. PT REPORTS HIS SISTER USES THE [employer] LIFT TO GET HIM TO THE WHEELCHAIR AND THEY WILL LEAVE THE SLING UNDER HIM FOR DIALYSIS TO USE FROM NOW ON. CHOICE SIGNED FOR [facility] TO VERIFY WITH THEM THAT THEY WILL NOT SEE PT. CM CALLED [facility], , LEFT MESSAGE ASKING FOR THE NURSE TO CALL CM BACK. PT PLANS TO DISCHARGE HOME WITH HIS SISTER, PT REPORTS HIS SISTER WILL PICK HIM UP FOR DISCHARGE HOME. PT DECLINES PRISON, LONGTERM OR REHAB PLACEMENT. Intelligence Applications: Brandin Garcia Appended by Brandin Garcia on 04/19/2019 16:56 CDT: CM RECEIVED CALL FROM JERICA OF [employer] [facility] WHO INFORMED CM THAT THEY DID GO FOR THE HOME HEALTH ADMIT AND INFORMED PT AND FAMILY THAT PT NEEDS REHAB AND IS NOT APPROPRIATE FOR HOME HEALTH SERVICES AT THIS TIME. PT PLANS TO DISCHARGE HOME WITH HIS SISTER, PT REPORTS HIS SISTER WILL PICK HIM UP FOR DISCHARGE HOME. PT DECLINES PRISON, LONGTERM OR REHAB PLACEMENT. Intelligence Applications: Brandin Garcia DCPIA - Discharge Planning Initial Assessment Updated by [id number]: Brandin Garcia on 04/19/19 3:31 pm * Is the patient Alert and Oriented? Yes * How many steps to enter\\exit or inside your home? NONE * PCP DR. ARACELI SIDHU * Pharmacy [facility] * Preadmission Environment Home with Family * ADLs Partial Dependent * Partial ADLs (Assistance needed) Ambulation Bathing Dressing Medication Management Toileting Transfers * Equipment Areli Lift Oxygen Wheelchair * Other Equipment HOME AND PORTABLE OXYGEN, [facility] * List name and contact numbers for known caregivers / representatives who currently or will assist patient after discharge: HANDY JONES, SISTER [phone] JORGE GORDON, SISTER, CHARLEY PHILLIPS, SON, * Verbal permission to speak to the caregivers and representatives has been obtained from the patient. Yes * Community resources currently utilized None * Please name any agencies selected above. PT HAD INTAKE WITH [employer] [facility] FROM [place], ACCORDING TO PT, THEY DECLINED T PROVIDE SERVICES UNTIL HE WAS "DOING BETTER". * Additional services required to return to the preadmission environment? No * Can the patient safely return to the preadmission environment? Yes * Has this patient been hospitalized within the prior 30 days at any hospital? Yes Coverage Notice Reviewer: [id number] Skylar Cabrera [place] Notice Issued Date-Time: 04/19/2019 9:30 Notice Type: Medicare Outpatient Observation Notice Notice Delivered To: Patient Relationship to Patient: Self Wire Sawyer Name: Delivery Method: HAND - Hand Delivered Anusha Days: Prior Verbal Notification: Recipient Understood Notice: Yes Recipient Signature: Yes Med Rec Note Co-signed by Attending: Coverage Notice Comment: Reviewer: [id number] Skylar Garcia Notice Issued Date-Time: 04/19/2019 12:15 Notice Type: Patient Choice Letter Notice Delivered To: Patient Relationship to Patient: Wire Sawyer Name: Delivery Method: HAND - Hand Delivered Anusha Days: Prior Verbal Notification: Recipient Understood Notice: Yes Recipient Signature: Yes Med Rec Note Co-signed by Attending: Coverage Notice Comment: [facility] Last DP export: 04/21/19 8:45 Patient Name: ABBY PHILLIPS Page 32881 at 0959 All edits/amendments must be made on the electronic document DICTATION DATE: 04/21/19958 ECONOMICS INSTRUCTOR: APRIL 04/21/19958 RPT#: [id number] DC DATE: STATUS: ADM IN [facility] [address] [place] [address] END OF REPORT
[2019-04-21 12:10] VITALS: BP 144/56
--- NOTE | 2019-04-21 12:37 | MORECARE ---
CASE MANAGEMENT DISCHARGE SUMMARY PATIENT: ABBY PHILLIPS UNIT: [id number] ADM DATE: 04/19/19 AGE: 73 : [birth year] SEX: M ROOM/BED: D.9612 AUTHOR: BYRON,DOC PHYSICIAN: REFERRING PHYSICIAN: SAMUEL COOPER MD DATE OF SERVICE: 04/21/19 Discharge Plan Patient Name: ABBY PHILLIPS Facility: [facility]:Wellborn : 1945 Planned Disposition: Left Against Medical Advice Anticipated Discharge Date: 04/21/19 Discharge Date: Expected LOS: 2 Initial Reviewer: [id number] Initial Review Date: 04/18/2019 Generated: 04/21/19 1:37 pm Comments DCP- Discharge Planning Updated by [id number]: Brandin Garcia on 04/21/19 11:[address] Patient Name: ABBY PHILLIPS Encounter No: [id number] : 1945 Primary Insurance: [facility] MEDICARE SOLUTIONS Anticipated DC Date: 04-21-2019 Planned Disposition: Left Against Medical Advice DCP follow-up note: CM SPOKE TO BEDSIDE NURSE WHO REPORTS PT'S SISTER, JORGE, CALLED AND STATES SHE WILL NOT BE PICKING PT UP FOR TRANSPORT HOME. CM MET WITH PT IN ROOM TO DISCUSS DISCHARGE PLANNING AND NEEDS. PT REPORTS STILL PLANNING TO LEAVE WHEN HE FINDS A RIDE. CM EXPLAINED THAT PT'S FAMILY MEMBERS ARE CALLING AND INFORMING HOSPITAL STAFF THEY ARE NOT PICKING UP PT. PT STATES HE HAS FRIENDS THAT ARE GOING TO HELP. CM PROVIDED PT WITH MEDICARE WEBSITE RESULTS FOR LONG-TERM REHABS WITHIN 50 MILES OF HIS HOME. CM EXPLAINED THAT [facility] WILL NOT ACCEPT PT BACK AND THAT IF PT CHANGES HIS MIND AND DECIDES TO GO TO REHAB, CM WILL NEED PT'S TOP TWO SELECTIONS AND SIGNATURE ON THE CHOICE FORM. IMPORTANT MESSAGE FROM MEDICARE PROVIDED AND EXPLAINED. PT ASKED CM TO CALL ADAM SANCHES, PHARMACIST AT [facility] TO HAVE HER , JOHN SANCHES, CALL PT. CM CALLED AND WAS ADVISED BY ADAM THAT AGUSTIN SPOKE TO PT YESTERDAY AND SHE WILL LET HER KNOW THAT PT WANTS TO TALK TO HIM AGAIN. CM STILL REFUSING LONG-TERM FACLITY PLACEMENT. CM WAITING ON PT TO DEVELOP TRANSPORTATION HOME. IF TRANSPORTATION IS VERIFIED, CALL JEANNIE, , WILL HAS AGREED TO ARRANGE PORTABLE OXGYEN TO HOSPITAL FOR PT TO LEAVE HOSPITAL. CM TO CONTINUE TO FOLLOW AND ASSIST NEEDED. [employer] Department: Brandin Garcia DCP- Discharge Planning Updated by [id number]: Brandin Garcia on 04/21/19 8:[address] Patient Name: ABBY PHILLIPS Encounter No: [id number] : 1945 Primary Insurance: [facility] MEDICARE SOLUTIONS Anticipated DC Date: 04-21-2019 Planned Disposition: Left Against Medical Advice DCP follow-up note: CM SPOKE TO HERIBERTO SANCHES REGARDING PT'S DISCHARGE PLAN. TREATMENT TEAM CONCERNED THAT PT DOES NOT HAVE SAFE DISCHARGE PLAN. CM MET WITH HERIBERTO SANCHES WITH PT IN ROOM. PT INSISTS THAT HE WILL GO HOME, JOHN SANCHES, , WILL PICK HIM UP. PT REPORTS ALEXSANDRA LOPEZ, A FRIEND FROM [facility] WILL ASSIST WITH CARING FOR PT IN HOME AND ASSIST WITH GETTING TO AND FROM DIALYSIS. PT REPORTS HE NORMALLY DRIVES HIMSELF TO AND FROM DIALYSIS AND IS ABLE TO TRANSFER HIMSELF TO A WHEELCHAIR, GET TO HIS CAR, GET THE WHEELCHAIR INTO THE TRUCK OF THE CAR AND THEN WALK TO AND GET INTO THE DRIVERS SEAT HOLDING ON TO THE CAR. PT REPORTS HAVING ELECTRIC AND MANUAL WHEELCHAIR AND IS ABLE TO TRANSFER HIMSELF FROM BED TO CHAIR AND CHAIR TO BED. PT DOES NOT KNOW THE NUMBER TO HIS FRIEND ALEXSANDRA, TO VERIFY HE WILL ASSIST AFTER DISCHARGE. PT REPORTS HIS SISTER HANDY LIVES IN HIS HOUSE AND HAS FOR FOUR MONTHS. CM ADVISED THAT FAMILY INFORMED STAFF HERE THAT PT NEEDS NURSING REHAB. PT REPORTS THAT HIS FAMILY IS WANTING TO KEEP HIM AWAY AND IN THE LONG TERM. HERIBERTO SANCHES ADVISED THAT PT MUST HAVE A SAFE AND VERIFIABLE PLAN TO DISCHARGE HOME. CM ATTEMPTED TO CALL JOHN SANCHES, ; THERE WAS NO ANSWER AND NO MESSAGE MACHINE. CM CALLED [facility], , SPOKE TO GAME AUTHOR RAYNE WHO INFORMED CM THAT THEY CAN DELIVER PORTABLE OXYGEN TO PT'S ROOM FOR DISCHARGE IF NEEDED. HARSHAL SPOKE TO PT IN ROOM, HERIBERTO SANCHES WAS IN ROOM SPEAKING TO PT. PT STATES HE IS LEAVING "AMA". HERIBERTO SANCHES INFORMED PT THAT PT MUST HAVE A PERSON TO VERIFY THEY ARE TRANSPORTING PRIOR TO ANY AMA FORMS BEING PRESENTED. CM ADVISED PT IF HE IS ABLE TO VERIFY TRANSPORATATION BY CM SPEAKING TO THAT PERSON AND THEY AGREE TO [employer] DIRECTOR PT, CM WILL ASK JEANNIE TO DELIVER PORTABLE OXYGEN TO ROOM. CM ASKED THAT IF PT CHANGES HIS MIND AND DECIDES TO GO TO LONG-TERM REHAB, TO PLEASE NOTIFY CM AND CM WILL BE GLAD TO ASSIST WITH PLACEMENT. PT DECLINED. CM WAITING ON PT TO DEVELOP TRANSPORTATION HOME. IF TRANSPORTATION IS VERIFIED, CALL JEANNIE, , WILL HAS AGREED TO ARRANGE PORTABLE OXGYEN TO HOSPITAL FOR PT TO LEAVE HOSPITAL. CM TO CONTINUE TO FOLLOW AND ASSIST NEEDED. [employer] Department: Brandin Garcia DCP- Discharge Planning Updated by [id number]: Brandin Garcia on 04/20/19 1:[address] Patient Name: ABBY PHILLIPS Encounter No: [id number] : 1945 Primary Insurance: [facility] MEDICARE SOLUTIONS Anticipated DC Date: 04-19-2019 Planned Disposition: Home DCP follow-up note: CM MET WITH PT IN ROOM AND ENCOURAGED PT TO GO TO REHAB PRIOR TO DISCHARGE HOME. PT CONTINUES TO REFUSE AND REPORTS HIS SISTER WILL PICK HIM UP FOR DISCHARGE HOME. PT STATES HE MAY NEED OXYGEN FROM [facility] AGAIN TO GO HOME. HARSHAL EXPLAINED THAT IF HIS SISTER IS PICKING HIM UP AND SHE IS STAYING WITH PT IN PT'S HOME, SHE SHOULD BRING OXYGEN WITH HER. PT WILL REQUEST HIS SISTER BRING OXYGEN WITH HER. HARSHAL RECEIVED CALL FROM MIRIAM GORDON, , WHO INFORMED CM THAT PT HAS BEEN CALLING STATING HE IS GOING TO BE DISCHARGED TODAY AND NEEDS A RIDE HOME. JORGE STATES PT NEEDS TO GO BACK TO NURSING FACILITY FOR REHAB AND NOT HOME. HARSHAL EXPLAINED THAT CM CANNOT MAKE PT DO SOMETHING AGAINST PT'S WILL AND THAT IF PT IS NOT DEEMED INCOMPETENT BY A PHYSICIAN OR COURT, PT CAN MAKE BAD DECISIONS FOR HIMSELF. HARSHAL EXPLAINED HOW TO FILE FOR GUARDIANSHIP OF A PERSON AND THAT THIS WOULD HAVE TO BE GRANTED FOR ANYONE TO MAKE PT DO SOMETHING AGAINST HIS WILL. JORGE REPORTS UNDERSTANDING. PT PLANS TO DISCHARGE HOME WITH HIS SISTER, PT REPORTS HIS SISTER WILL PICK HIM UP FOR DISCHARGE HOME. PT DECLINES LONG TERM, LONG-TERM OR REHAB PLACEMENT. PATIENT IS NOT APPROPRIATE FOR HOME HEALTH PER [facility]. [employer] Department: Brandin Garcia DCP- Discharge Planning Updated by [id number]: Brandin Garcia on 04/19/19 3:[address] Patient Name: ABBY PHILLIPS Admission Status: ER Accout number: [id number] Admission Date: 04-19-2019 : 1945 Admission Diagnosis: Attending: SAMUEL COOPER Current LOS: 1 Anticipated DC Date: 04-19-2019 Planned Disposition: Home Primary Insurance: [facility] MEDICARE SOLUTIONS Discharge Planning Comments: CM MET WITH PT IN ROOM TO DISCUSS DISCHARGE PLANNING AND NEEDS. PT REPORTS LIVING AT HOME DEPENDENTLY WITH HIS SISTER HANDY WHO IS STAYING WITH PT IN PT'S HOME TO CARE FOR PT. . PT HAS [employer] LIFT AND WHEELCHAIR WELL HOME AND PORTABLE OXYGEN FROM [facility]. PT HAS NO OUTSIDE SERVICES ASSISTING IN THE HOME [facility] DECLINED TO ADMIT HIM AND TOLD HIM HE HAS TO BE DOING BETTER FOR HOME HEALTH SERVICES. CM DISCUSSED AVAILABILITY OF HOME HEALTH, REHAB SERVICES AND MEDICAL EQUIPMENT. PT DECLINED LONG TERM OR REHAB PLACEMENT. PT DENIES DISCHARGE NEEDS, REPORTS HIS SISTER HANDY WILL PICK HIM UP FOR DISCHARGE HOME. PT REPORTS MISSING DIALYSIS BECAUSE HE WENT ON THURSDAY AND THEY DID NOT HAVE A SLING TO USE ON THE LIFT TO PICK HIM UP AT THE DIALYSIS UNIT. PT STATES HE HAS A SLING AT HOME AND FORGOT ABOUT IT. PT REPORTS HIS SISTER USES THE ARELI LIFT TO GET HIM TO THE WHEELCHAIR AND THEY WILL LEAVE THE SLING UNDER HIM FOR DIALYSIS TO USE FROM NOW ON. CHOICE SIGNED FOR [facility] TO VERIFY WITH THEM THAT THEY WILL NOT SEE PT. CM CALLED [facility], , LEFT MESSAGE ASKING FOR THE NURSE TO CALL CM BACK. PT PLANS TO DISCHARGE HOME WITH HIS SISTER, PT REPORTS HIS SISTER WILL PICK HIM UP FOR DISCHARGE HOME. PT DECLINES LONG TERM, LONG-TERM OR REHAB PLACEMENT. [employer] Department: Brandin Garcia Appended by Brandin Garcia on 04/19/2019 16:56 CDT: CM RECEIVED CALL FROM JERICA OF [facility] WHO INFORMED CM THAT THEY DID GO FOR THE HOME HEALTH ADMIT AND INFORMED PT AND FAMILY THAT PT NEEDS REHAB AND IS NOT APPROPRIATE FOR HOME HEALTH SERVICES AT THIS TIME. PT PLANS TO DISCHARGE HOME WITH HIS SISTER, PT REPORTS HIS SISTER WILL PICK HIM UP FOR DISCHARGE HOME. PT DECLINES LONG TERM, LONG-TERM OR REHAB PLACEMENT. [employer]man [employer] Department: Brandin Garcia DCPIA - Discharge Planning Initial Assessment Updated by [id number]: Brandin Garcia on 04/19/19 3:31 pm * Is the patient Alert and Oriented? Yes * How many steps to enter\\exit or inside your home? NONE * PCP DR. ARACELI SIDHU * Pharmacy [facility] * Preadmission Environment Home with Family * ADLs Partial Dependent * Partial ADLs (Assistance needed) Ambulation Bathing Dressing Medication Management Toileting Transfers * Equipment Areli Lift Oxygen Wheelchair * Other Equipment HOME AND PORTABLE OXYGEN, [facility] * List name and contact numbers for known caregivers / representatives who currently or will assist patient after discharge: HANDY JONES, SISTER [phone] JORGE GORDON, SISTER, CHARLEY PHILLIPS, SON, * Verbal permission to speak to the caregivers and representatives has been obtained from the patient. Yes * Community resources currently utilized None * Please name any agencies selected above. PT HAD INTAKE WITH [email or web address] [facility] FROM [facility], ACCORDING TO PT, THEY DECLINED T PROVIDE SERVICES UNTIL HE WAS "DOING BETTER". * Additional services required to return to the preadmission environment? No * Can the patient safely return to the preadmission environment? Yes * Has this patient been hospitalized within the prior 30 days at any hospital? Yes Coverage Notice Reviewer: [email or web address] - Deborah Augustin Notice Issued Date-Time: 04/19/2019 9:30 Notice Type: Medicare Outpatient Observation Notice Notice Delivered To: Patient Relationship to Patient: Self [employer] Professor Name: Delivery Method: HAND - Hand Delivered Anusha Days: Prior Verbal Notification: Recipient Understood Notice: Yes Recipient Signature: Yes Med Rec Note Co-signed by Attending: Coverage Notice Comment: Reviewer: [email or web address] Skylar Garcia Notice Issued Date-Time: 04/19/2019 12:15 Notice Type: Patient Choice Letter Notice Delivered To: Patient Relationship to Patient: [employer] Professor Name: Delivery Method: HAND - Hand Delivered Anusha Days: Prior Verbal Notification: Recipient Understood Notice: Yes Recipient Signature: Yes Med Rec Note Co-signed by Attending: Coverage Notice Comment: [employer] [facility] Reviewer: [id number] Skylar Garcia Notice Issued Date-Time: 04/21/2019 11:45 Notice Type: IM Discharge Notice Notice Delivered To: Patient Relationship to Patient: [employer] Professor Name: Delivery Method: HAND - Hand Delivered Anusha Days: Prior Verbal Notification: Recipient Understood Notice: Yes Recipient Signature: Yes Med Rec Note Co-signed by Attending: Coverage Notice Comment: Last DP export: 04/21/19 8:59 Patient Name: ABBY PHILLIPS Page [id number] at 1237 All edits/amendments must be made on the electronic document DICTATION DATE: 04/21/19 123 CHIEF COOK: APRIL 04/21/19 1237 RPT#: [id number] DC DATE: STATUS: ADM IN [facility] [address] [place] [address] END OF REPORT
--- NOTE | 2019-04-21 14:03 | NUR ---
PT TAKIN TO DIALYSIS AT THIS TIME.
--- NOTE | 2019-04-21 14:29 | NUR ---
Nutrition Follow-up: Pt reports good appetite/PO intake and that he ate the majority of his breakfast this AM. PO intake record states 25%. Also states he drinks 2 Nepro/day. No c/o chewing/swallowing difficulties. Per chart, noted multiple skin issues. Diet: Mechanical Soft Renal ADA, Nepro BID No new wt Last BM: 04/20 Labs noted: Na 133, K+ 4.0, PO4 2.3, Glu 216 Meds noted: Humalog, Lasix -Continue current diet/supplements as tolerated. -May consider Trae for wound healing if acceptable to pt. -Rec new wt; will monitor trend. -RD following.
--- NOTE | 2019-04-21 17:16 | MORECARE ---
CASE MANAGEMENT DISCHARGE SUMMARY PATIENT: ABBY PHILLIPS UNIT: [id number] ADM DATE: 04/19/19 AGE: 73 : [birth year] SEX: M ROOM/BED: D.0307 AUTHOR: BYRONDOC PHYSICIAN: REFERRING PHYSICIAN: SAMUEL COOPER MD DATE OF SERVICE: 04/21/19 Discharge Plan Patient Name: ABBY PHILLIPS Facility: [facility]:[place] : 1945 Planned Disposition: Correction Facility Anticipated Discharge Date: 04/21/19 Discharge Date: Expected LOS: 2 Initial Reviewer: [id number] Initial Review Date: 04/18/2019 Generated: 04/21/19 6:16 pm Comments DCP- Discharge Planning Updated by [id number]: Brandin Garcia on 04/21/19 4:[address] Patient Name: ABBY PHILLIPS Encounter No: [id number] : 1945 Primary Insurance: C MEDICARE SOLUTIONS Anticipated DC Date: 04-21-2019 Planned Disposition: Correction Facility External Planned Provider: [facility] OR OTHER INTERMEDIATE IN [place] DCP follow-up note: CM RECEIVED CALL FROM CHARLEY PHILLIPS, PT'S SON, WHO REPORTS THAT HE HAS TALKED TO PT VIA PHONE AND PT IS NOW AGREEING TO GO TO INTERMEDIATE REHAB IN [place], CLOSE TO HIS SON. CM ATTEMPTED TO SEE PT WHO WAS OUT OF ROOM AT APPROXIMATELY 1345 HOURS. CM WILL SPEAK TO PT SOON POSSIBLE REGARDING INTERMEDIATE REHAB IN [place] AND SEND REFERRALS IF PT WILL SIGN THE CONSENT. SELENA Escobedo DCP- Discharge Planning Updated by [id number]: Brandin Garcia on 04/21/19 11:[address] Patient Name: ABBY PHILLIPS Encounter No: [id number] : 1945 Primary Insurance: [facility] MEDICARE SOLUTIONS Anticipated DC Date: 04-21-2019 Planned Disposition: Left Against Medical Advice DCP follow-up note: CM SPOKE TO BEDSIDE NURSE WHO REPORTS PT'S SISTER, JORGE, CALLED AND STATES SHE WILL NOT BE PICKING PT UP FOR TRANSPORT HOME. CM MET WITH PT IN ROOM TO DISCUSS DISCHARGE PLANNING AND NEEDS. PT REPORTS STILL PLANNING TO LEAVE WHEN HE FINDS A RIDE. CM EXPLAINED THAT PT'S FAMILY MEMBERS ARE CALLING AND INFORMING HOSPITAL STAFF THEY ARE NOT PICKING UP PT. PT STATES HE HAS FRIENDS THAT ARE GOING TO HELP. CM PROVIDED PT WITH MEDICARE WEBSITE RESULTS FOR INTERMEDIATE REHABS WITHIN 50 MILES OF HIS HOME. CM EXPLAINED THAT [facility] WILL NOT ACCEPT PT BACK AND THAT IF PT CHANGES HIS MIND AND DECIDES TO GO TO REHAB, CM WILL NEED PT'S TOP TWO SELECTIONS AND SIGNATURE ON THE CHOICE FORM. IMPORTANT MESSAGE FROM MEDICARE PROVIDED AND EXPLAINED. PT ASKED CM TO CALL ADAM SANCHES, PHARMACIST AT [facility] TO HAVE HER , JOHN SANCHES, CALL PT. CM CALLED AND WAS ADVISED BY ADAM THAT AGUSTIN SPOKE TO PT YESTERDAY AND SHE WILL LET HER KNOW THAT PT WANTS TO TALK TO HIM AGAIN. CM STILL REFUSING INTERMEDIATE FACLITY PLACEMENT. CM WAITING ON PT TO DEVELOP TRANSPORTATION HOME. IF TRANSPORTATION IS VERIFIED, CALL JEANNIE, , WILL HAS AGREED TO ARRANGE PORTABLE OXGYEN TO HOSPITAL FOR PT TO LEAVE HOSPITAL. CM TO CONTINUE TO FOLLOW AND ASSIST NEEDED. Bevel Polisher: Brandin Garcia DCP- Discharge Planning Updated by [id number]: Brandin Garcia on 04/21/19 8:[address] Patient Name: ABBY PHILLIPS Encounter No: [id number] : 1945 Primary Insurance: [facility] MEDICARE SOLUTIONS Anticipated DC Date: 04-21-2019 Planned Disposition: Left Against Medical Advice DCP follow-up note: CM SPOKE TO HERIBERTO SANCHES REGARDING PT'S DISCHARGE PLAN. TREATMENT TEAM CONCERNED THAT PT DOES NOT HAVE SAFE DISCHARGE PLAN. CM MET WITH HERIBERTO SANCHES WITH PT IN ROOM. PT INSISTS THAT HE WILL GO HOME, JOHN SANCHES, , WILL PICK HIM UP. PT REPORTS ALEXSANDRA LOPEZ, A FRIEND FROM [place] WILL ASSIST WITH CARING FOR PT IN HOME AND ASSIST WITH GETTING TO AND FROM DIALYSIS. PT REPORTS HE NORMALLY DRIVES HIMSELF TO AND FROM DIALYSIS AND IS ABLE TO TRANSFER HIMSELF TO A WHEELCHAIR, GET TO HIS CAR, GET THE WHEELCHAIR INTO THE TRUCK OF THE CAR AND THEN WALK TO AND GET INTO THE DRIVERS SEAT HOLDING ON TO THE CAR. PT REPORTS HAVING ELECTRIC AND MANUAL WHEELCHAIR AND IS ABLE TO TRANSFER HIMSELF FROM BED TO CHAIR AND CHAIR TO BED. PT DOES NOT KNOW THE NUMBER TO HIS FRIEND ALEXSANDRA, TO VERIFY HE WILL ASSIST AFTER DISCHARGE. PT REPORTS HIS SISTER HANDY LIVES IN HIS HOUSE AND HAS FOR FOUR MONTHS. CM ADVISED THAT FAMILY INFORMED STAFF HERE THAT PT NEEDS NURSING REHAB. PT REPORTS THAT HIS FAMILY IS WANTING TO KEEP HIM AWAY AND IN THE CARE HOME. HERIBERTO SANCHES ADVISED THAT PT MUST HAVE A SAFE AND VERIFIABLE PLAN TO DISCHARGE HOME. CM ATTEMPTED TO CALL JOHN VERÓNICA, ; THERE WAS NO ANSWER AND NO MESSAGE MACHINE. CM CALLED [facility], , SPOKE TO BUMPER AND PAINTER WILL WHO INFORMED CM THAT THEY CAN DELIVER PORTABLE OXYGEN TO PT'S ROOM FOR DISCHARGE IF NEEDED. HARSHAL SPOKE TO PT IN ROOM, HERIBERTO SANCHES WAS IN ROOM SPEAKING TO PT. PT STATES HE IS LEAVING "AMA". HERIBERTO SANCHES INFORMED PT THAT PT MUST HAVE A PERSON TO VERIFY THEY ARE TRANSPORTING PRIOR TO ANY AMA FORMS BEING PRESENTED. CM ADVISED PT IF HE IS ABLE TO VERIFY TRANSPORATATION BY CM SPEAKING TO THAT PERSON AND THEY AGREE TO [employer]TONHOLE MAKER HAND PT, CM WILL ASK JEANNIE TO DELIVER PORTABLE OXYGEN TO ROOM. CM ASKED THAT IF PT CHANGES HIS MIND AND DECIDES TO GO TO INTERMEDIATE REHAB, TO PLEASE NOTIFY CM AND CM WILL BE GLAD TO ASSIST WITH PLACEMENT. PT DECLINED. CM WAITING ON PT TO DEVELOP TRANSPORTATION HOME. IF TRANSPORTATION IS VERIFIED, CALL JEANNIE, , WILL HAS AGREED TO ARRANGE PORTABLE OXGYEN TO HOSPITAL FOR PT TO LEAVE HOSPITAL. CM TO CONTINUE TO FOLLOW AND ASSIST NEEDED. Bevel Polisher: Brandin Garcia DCP- Discharge Planning Updated by [id number]: Brandin Garcia on 04/20/19 1:[address] Patient Name: ABBY PHILLIPS Encounter No: [id number] : 1945 Primary Insurance: [facility] MEDICARE SOLUTIONS Anticipated DC Date: 04-19-2019 Planned Disposition: Home DCP follow-up note: CM MET WITH PT IN ROOM AND ENCOURAGED PT TO GO TO REHAB PRIOR TO DISCHARGE HOME. PT CONTINUES TO REFUSE AND REPORTS HIS SISTER WILL PICK HIM UP FOR DISCHARGE HOME. PT STATES HE MAY NEED OXYGEN FROM [facility] AGAIN TO GO HOME. CM EXPLAINED THAT IF HIS SISTER IS PICKING HIM UP AND SHE IS STAYING WITH PT IN PT'S HOME, SHE SHOULD BRING OXYGEN WITH HER. PT WILL REQUEST HIS SISTER BRING OXYGEN WITH HER. CM RECEIVED CALL FROM MIRIAM GORDON, , WHO INFORMED CM THAT PT HAS BEEN CALLING STATING HE IS GOING TO BE DISCHARGED TODAY AND NEEDS A RIDE HOME. JORGE STATES PT NEEDS TO GO BACK TO NURSING FACILITY FOR REHAB AND NOT HOME. CM EXPLAINED THAT CM CANNOT MAKE PT DO SOMETHING AGAINST PT'S WILL AND THAT IF PT IS NOT DEEMED INCOMPETENT BY A PHYSICIAN OR COURT, PT CAN MAKE BAD DECISIONS FOR HIMSELF. CM EXPLAINED HOW TO FILE FOR GUARDIANSHIP OF A PERSON AND THAT THIS WOULD HAVE TO BE GRANTED FOR ANYONE TO MAKE PT DO SOMETHING AGAINST HIS WILL. JORGE REPORTS UNDERSTANDING. PT PLANS TO DISCHARGE HOME WITH HIS SISTER, PT REPORTS HIS SISTER WILL PICK HIM UP FOR DISCHARGE HOME. PT DECLINES CARE HOME, INTERMEDIATE OR REHAB PLACEMENT. PATIENT IS NOT APPROPRIATE FOR HOME HEALTH PER [facility]. Bevel Polisher: Brandin Garcia DCP- Discharge Planning Updated by [id number]: Brandin Garcia on 04/19/19 3:[address] Patient Name: ABBY PHILLIPS Admission Status: ER Accout number: [id number] Admission Date: 04-19-2019 : 1945 Admission Diagnosis: Attending: SAMUEL COOPER Current LOS: 1 Anticipated DC Date: 04-19-2019 Planned Disposition: Home Primary Insurance: [facility] MEDICARE SOLUTIONS Discharge Planning Comments: CM MET WITH PT IN ROOM TO DISCUSS DISCHARGE PLANNING AND NEEDS. PT REPORTS LIVING AT HOME DEPENDENTLY WITH HIS SISTER HANDY WHO IS STAYING WITH PT IN PT'S HOME TO CARE FOR PT. . PT HAS [employer] LIFT AND WHEELCHAIR WELL HOME AND PORTABLE OXYGEN FROM [facility]. PT HAS NO OUTSIDE SERVICES ASSISTING IN THE HOME [facility] [employer] [facility] DECLINED TO ADMIT HIM AND TOLD HIM HE HAS TO BE DOING BETTER FOR HOME HEALTH SERVICES. CM DISCUSSED AVAILABILITY OF HOME HEALTH, REHAB SERVICES AND MEDICAL EQUIPMENT. PT DECLINED CARE HOME OR REHAB PLACEMENT. PT DENIES DISCHARGE NEEDS, REPORTS HIS SISTER HANDY WILL PICK HIM UP FOR DISCHARGE HOME. PT REPORTS MISSING DIALYSIS BECAUSE HE WENT ON THURSDAY AND THEY DID NOT HAVE A SLING TO USE ON THE LIFT TO PICK HIM UP AT THE DIALYSIS UNIT. PT STATES HE HAS A SLING AT HOME AND FORGOT ABOUT IT. PT REPORTS HIS SISTER USES THE ARELI LIFT TO GET HIM TO THE WHEELCHAIR AND THEY WILL LEAVE THE SLING UNDER HIM FOR DIALYSIS TO USE FROM NOW ON. CHOICE SIGNED FOR [facility] TO VERIFY WITH THEM THAT THEY WILL NOT SEE PT. CM CALLED [facility], , LEFT MESSAGE ASKING FOR THE NURSE TO CALL CM BACK. PT PLANS TO DISCHARGE HOME WITH HIS SISTER, PT REPORTS HIS SISTER WILL PICK HIM UP FOR DISCHARGE HOME. PT DECLINES CARE HOME, INTERMEDIATE OR REHAB PLACEMENT. Bevel Polisher: Brandin Garcia Appended by Brandin Garcia on 04/19/2019 16:56 CDT: CM RECEIVED CALL FROM JERICA OF [facility] WHO INFORMED CM THAT THEY DID GO FOR THE HOME HEALTH ADMIT AND INFORMED PT AND FAMILY THAT PT NEEDS REHAB AND IS NOT APPROPRIATE FOR HOME HEALTH SERVICES AT THIS TIME. PT PLANS TO DISCHARGE HOME WITH HIS SISTER, PT REPORTS HIS SISTER WILL PICK HIM UP FOR DISCHARGE HOME. PT DECLINES CARE HOME, INTERMEDIATE OR REHAB PLACEMENT. Bevel Polisher: Brandin Garcia DCPIA - Discharge Planning Initial Assessment Updated by [id number]: Brandin Garcia on 04/19/19 3:31 pm * Is the patient Alert and Oriented? Yes * How many steps to enter\\exit or inside your home? NONE * PCP DR. ARACELI SIDHU * Pharmacy [facility] * Preadmission Environment Home with Family * ADLs Partial Dependent * Partial ADLs (Assistance needed) Ambulation Bathing Dressing Medication Management Toileting Transfers * Equipment Areli Lift Oxygen Wheelchair * Other Equipment HOME AND PORTABLE OXYGEN, [facility] * List name and contact numbers for known caregivers / representatives who currently or will assist patient after discharge: HANDY JONES, SISTER [phone] JORGE GORDON, SISTER, CHARLEY PHILLIPS, SON, * Verbal permission to speak to the caregivers and representatives has been obtained from the patient. Yes * Community resources currently utilized None * Please name any agencies selected above. PT HAD INTAKE WITH [facility] FROM [place], ACCORDING TO PT, THEY DECLINED T PROVIDE SERVICES UNTIL HE WAS "DOING BETTER". * Additional services required to return to the preadmission environment? No * Can the patient safely return to the preadmission environment? Yes * Has this patient been hospitalized within the prior 30 days at any hospital? Yes Coverage Notice Reviewer: [id number] - [facility] Notice Issued Date-Time: 04/19/2019 9:30 Notice Type: Medicare Outpatient Observation Notice Notice Delivered To: Patient Relationship to Patient: Self Cardiac Nurse Name: Delivery Method: HAND - Hand Delivered Anusha Days: Prior Verbal Notification: Recipient Understood Notice: Yes Recipient Signature: Yes Med Rec Note Co-signed by Attending: Coverage Notice Comment: Reviewer: LIO Garcia Notice Issued Date-Time: 04/19/2019 12:15 Notice Type: Patient Choice Letter Notice Delivered To: Patient Relationship to Patient: Cardiac Nurse Name: Delivery Method: HAND - Hand Delivered Anusha Days: Prior Verbal Notification: Recipient Understood Notice: Yes Recipient Signature: Yes Med Rec Note Co-signed by Attending: Coverage Notice Comment: [facility] Reviewer: [id number] Garcia Notice Issued Date-Time: 04/21/2019 11:45 Notice Type: IM Discharge Notice Notice Delivered To: Patient Relationship to Patient: Cardiac Nurse Name: Delivery Method: HAND - Hand Delivered Anusha Days: Prior Verbal Notification: Recipient Understood Notice: Yes Recipient Signature: Yes Med Rec Note Co-signed by Attending: Coverage Notice Comment: Last DP export: 04/21/19 11:37 Patient Name: ABBY PHILLIPS Page [id number] at 1716 All edits/amendments must be made on the electronic document DICTATION DATE: 04/21/191715 JUVENILE COUNSELOR: APRIL 04/21/191715 RPT#: [id number] DC DATE: STATUS: ADM IN [facility] [address] [place] [address] END OF REPORT
--- NOTE | 2019-04-21 19:17 | NUR ---
BEDSIDE REPORT RECEIVED FROM DAY SHIFT, PT CARE ASSUMED. WROTE NAME ON BOARD, PT LYING IN BED WATCHING TV, ON THE PHONE WITH FAMILY, AAOX4. C/O LEFT LEG PAIN OF 8, ON A SCALE OF 0 - 10. DENIES ANY OTHER NEEDS AT THIS TIME. BED IN LOWEST POSITION, SR X2, CALL LIGHT WITHIN REACH. WILL CONTINUE TO MONITOR.
[2019-04-21 20:00] VITALS: BP 170/53
--- NOTE | 2019-04-21 23:02 | NUR ---
PT C/O SOB, RR 19, EVEN AND SHALLOW, O2 SAT 99% WITH O2 @ 2L VIA NC, DIMINISHED BREATH SOUNDS NOTED BILATERALLY LOWER LOBES, ALL OTHER LOBES CLEAR. SOLDERING MACHINE TENDER DR COOMBS.
--- NOTE | 2019-04-21 23:46 | NUR ---
MANAGER PARK DOCTOR PAGED AGAIN.
[2019-04-22 00:01] VITALS: BP 142/62
[2019-04-22 04:00] VITALS: BP 175/46
[2019-04-22 05:39] LABS: BASOPHILS 0.2 % (0-2); EOSINOPHILS 0.9 % (0-7); HEMATOCRIT 31.3 % (42.0-54.0); HEMOGLOBIN 9.5 g/dL (13.5-17.5); IMMATURE GRANULOCYTES 0.6 % (0-5); LYMPHOCYTES 22.6 % (15-50); MCH 25.5 pg (26.0-34.0); MCHC 30.4 g/dL (31.0-37.0); MCV 83.9 fL (80.0-100.0); MEAN PLATELET VOLUME 9.4 fL (7.4-10.4); MONOCYTES 11.7 % (2-11); PLATELET COUNT 299 10x3/uL (130-400); RBC 3.73 10x6/uL (4.20-6.10); RDW 16.5 % (11.5-14.5); WBC 11.7 10x3/uL (4.8-10.8)
[2019-04-22 06:11] LABS: ANION GAP 12.1 mmol/L (8-16); CALCIUM 7.9 mg/dL (8.5-10.1); CARBON DIOXIDE 28.2 mmol/L (21.0-32.0); CREATININE - SERUM 2.9 mg/dL (0.6-1.3); VANCOMYCIN - RANDOM 12.2 ug/mL (10.0-20.0)
[2019-04-22 06:14] LABS: POTASSIUM - SERUM 3.3 mmol/L (3.5-5.1)
--- NOTE | 2019-04-22 07:08 | NUR ---
REPORT RECEIVED. WILL CONTINUE WITH POC. PT CURRENTLY LYING SEMI FOWLERS. CALL LIGHT W/I REACH. PT IS ASLEEP AT THIS TIME WITH EYES CLOSED. RR EVEN AND UNLABORED ON 2L 02. R.WRIST PIV IS SALINE LOCKED. NO S/S OF DISTRESS NOTED. PT DENIES ANY NEEDS. WILL CTM.
[2019-04-22 08:00] VITALS: BP 175/70
--- NOTE | 2019-04-22 10:04 | MORECARE ---
CASE MANAGEMENT DISCHARGE SUMMARY PATIENT: ABBY PHILLIPS UNIT: [id number] ADM DATE: 04/19/19 AGE: 73 : [birth year] SEX: M ROOM/BED: D.4832 AUTHOR: BYRONDOC PHYSICIAN: REFERRING PHYSICIAN: SAMUEL COOPER MD DATE OF SERVICE: 04/22/19 Discharge Plan Patient Name: ABBY PHILLIPS Facility: [facility]:[place] : 1945 Planned Disposition: Residential Facility Anticipated Discharge Date: 04/21/19 Discharge Date: Expected LOS: 2 Initial Reviewer: [id number] Initial Review Date: 04/18/2019 Generated: 04/22/19 11:04 am Comments DCP- Discharge Planning Updated by [id number]: Brandin Garcia on 04/21/19 4:[address] Patient Name: ABBY PHILLIPS Encounter No: [id number] : 1945 Primary Insurance: [facility] MED[employer] SOLUTIONS Anticipated DC Date: 04-21-2019 Planned Disposition: Residential Facility External Planned Provider: [facility] OR OTHER [facility] IN [place] DCP follow-up note: CM RECEIVED CALL FROM CHARLEY PHILLIPS, PT'S SON, WHO REPORTS THAT HE HAS TALKED TO PT VIA PHONE AND PT IS NOW AGREEING TO GO TO [facility] REHAB IN [place], CLOSE TO HIS SON. CM ATTEMPTED TO SEE PT WHO WAS OUT OF ROOM AT APPROXIMATELY 1345 HOURS. CM WILL SPEAK TO PT SOON POSSIBLE REGARDING HAL[facility]AY REHAB IN [place] AND SEND REFERRALS IF PT WILL SIGN THE CONSENT. SELENA Escobedo DCP- Discharge Planning Updated by [id number]: Brandin Garcia on 04/21/19 11:[address] Patient Name: ABBY PHILLIPS Encounter No: [id number] : 1945 Primary Insurance: [facility] [employer] SOLUTIONS Anticipated DC Date: 04-21-2019 Planned Disposition: Left Against Medical Advice DCP follow-up note: CM SPOKE TO BEDSIDE NURSE WHO REPORTS PT'S SISTER, JORGE, CALLED AND STATES SHE WILL NOT BE PICKING PT UP FOR TRANSPORT HOME. CM MET WITH PT IN ROOM TO DISCUSS DISCHARGE PLANNING AND NEEDS. PT REPORTS STILL PLANNING TO LEAVE WHEN HE FINDS A RIDE. CM EXPLAINED THAT PT'S FAMILY MEMBERS ARE CALLING AND INFORMING HOSPITAL STAFF THEY ARE NOT PICKING UP PT. PT STATES HE HAS FRIENDS THAT ARE GOING TO HELP. CM PROVIDED PT WITH MEDICARE WEBSITE RESULTS FOR HALFWAY REHABS WITHIN 50 MILES OF HIS HOME. CM EXPLAINED THAT [facility] WILL NOT ACCEPT PT BACK AND THAT IF PT CHANGES HIS MIND AND DECIDES TO GO TO REHAB, CM WILL NEED PT'S TOP TWO SELECTIONS AND SIGNATURE ON THE CHOICE FORM. IMPORTANT MESSAGE FROM MEDICARE PROVIDED AND EXPLAINED. PT ASKED CM TO CALL ADAM SANCHES, PHARMACIST AT [facility] TO HAVE HER , JOHN SANCHES, CALL PT. CM CALLED AND WAS ADVISED BY ADAM THAT AGUSTIN SPOKE TO PT YESTERDAY AND SHE WILL LET HER KNOW THAT PT WANTS TO TALK TO HIM AGAIN. CM STILL REFUSING HALFWAY FACLITY PLACEMENT. CM WAITING ON PT TO DEVELOP TRANSPORTATION HOME. IF TRANSPORTATION IS VERIFIED, CALL JEANNIE, , WILL HAS AGREED TO ARRANGE PORTABLE OXGYEN TO HOSPITAL FOR PT TO LEAVE HOSPITAL. CM TO CONTINUE TO FOLLOW AND ASSIST NEEDED. Capture Manager: Brandin Garcia DCP- Discharge Planning Updated by [id number]: Brandin Garcia on 04/21/19 8:[address] Patient Name: ABBY PHILLIPS Encounter No: [id number] : 1945 Primary Insurance: [facility] MED[employer] SOLUTIONS Anticipated DC Date: 04-21-2019 Planned Disposition: Left Against Medical Advice DCP follow-up note: CM SPOKE TO HERIBERTO SANCHES REGARDING PT'S DISCHARGE PLAN. TREATMENT TEAM CONCERNED THAT PT DOES NOT HAVE SAFE DISCHARGE PLAN. CM MET WITH HERIBERTO SANCHES WITH PT IN ROOM. PT INSISTS THAT HE WILL GO HOME, [facility] SANCHES, , WILL PICK HIM UP. PT REPORTS ALEXSANDRA LOPEZ, A FRIEND FROM [place] WILL ASSIST WITH CARING FOR PT IN HOME AND ASSIST WITH GETTING TO AND FROM DIALYSIS. PT REPORTS HE NORMALLY DRIVES HIMSELF TO AND FROM DIALYSIS AND IS ABLE TO TRANSFER HIMSELF TO A WHEELCHAIR, GET TO HIS CAR, GET THE WHEELCHAIR INTO THE TRUCK OF THE CAR AND THEN WALK TO AND GET INTO THE DRIVERS SEAT HOLDING ON TO THE CAR. PT REPORTS HAVING ELECTRIC AND MANUAL WHEELCHAIR AND IS ABLE TO TRANSFER HIMSELF FROM BED TO CHAIR AND CHAIR TO BED. PT DOES NOT KNOW THE NUMBER TO HIS FRIEND ALEXSANDRA, TO VERIFY HE WILL ASSIST AFTER DISCHARGE. PT REPORTS HIS SISTER HANDY LIVES IN HIS HOUSE AND HAS FOR FOUR MONTHS. CM ADVISED THAT FAMILY INFORMED STAFF HERE THAT PT NEEDS NURSING REHAB. PT REPORTS THAT HIS FAMILY IS WANTING TO KEEP HIM AWAY AND IN THE [facility]. HERIBERTO SANCHES ADVISED THAT PT MUST HAVE A SAFE AND VERIFIABLE PLAN TO DISCHARGE HOME. CM ATTEMPTED TO CALL JOHN VERÓNICA, ; THERE WAS NO ANSWER AND NO MESSAGE MACHINE. CM CALLED [facility], , SPOKE TO PRACTICE PERFORMANCE MANAGER WILL WHO INFORMED CM THAT THEY CAN DELIVER PORTABLE OXYGEN TO PT'S ROOM FOR DISCHARGE IF NEEDED. HARSHAL SPOKE TO PT IN ROOM, HERIBERTO SANCHES WAS IN ROOM SPEAKING TO PT. PT STATES HE IS LEAVING "AMA". HERIBERTO SANCHES INFORMED PT THAT PT MUST HAVE A PERSON TO VERIFY THEY ARE TRANSPORTING PRIOR TO ANY AMA FORMS BEING PRESENTED. CM ADVISED PT IF HE IS ABLE TO VERIFY TRANSPORATATION BY CM SPEAKING TO THAT PERSON AND THEY AGREE TO TOOL RADIAL DRILL PRESS SET UP OPERATOR PT, CM WILL ASK JEANNIE TO DELIVER PORTABLE OXYGEN TO ROOM. CM ASKED THAT IF PT CHANGES HIS MIND AND DECIDES TO GO TO HALFWAY REHAB, TO PLEASE NOTIFY CM AND CM WILL BE GLAD TO ASSIST WITH PLACEMENT. PT DECLINED. CM WAITING ON PT TO DEVELOP TRANSPORTATION HOME. IF TRANSPORTATION IS VERIFIED, CALL JEANNIE, , WILL HAS AGREED TO ARRANGE PORTABLE OXGYEN TO HOSPITAL FOR PT TO LEAVE HOSPITAL. CM TO CONTINUE TO FOLLOW AND ASSIST NEEDED. Capture Manager: Brandin Garcia DCP- Discharge Planning Updated by [id number]: Brandin Garcia on 04/20/19 1:[address] Patient Name: ABBY PHILLIPS Encounter No: [id number] : 1945 Primary Insurance: [facility] [employer] SOLUTIONS Anticipated DC Date: 04-19-2019 Planned Disposition: Home DCP follow-up note: CM MET WITH PT IN ROOM AND ENCOURAGED PT TO GO TO REHAB PRIOR TO DISCHARGE HOME. PT CONTINUES TO REFUSE AND REPORTS HIS SISTER WILL PICK HIM UP FOR DISCHARGE HOME. PT STATES HE MAY NEED OXYGEN FROM [facility] AGAIN TO GO HOME. CM EXPLAINED THAT IF HIS SISTER IS PICKING HIM UP AND SHE IS STAYING WITH PT IN PT'S HOME, SHE SHOULD BRING OXYGEN WITH HER. PT WILL REQUEST HIS SISTER BRING OXYGEN WITH HER. CM RECEIVED CALL FROM MIRIAM GORDON, , WHO INFORMED CM THAT PT HAS BEEN CALLING STATING HE IS GOING TO BE DISCHARGED TODAY AND NEEDS A RIDE HOME. JORGE STATES PT NEEDS TO GO BACK TO NURSING FACILITY FOR REHAB AND NOT HOME. CM EXPLAINED THAT CM CANNOT MAKE PT DO SOMETHING AGAINST PT'S WILL AND THAT IF PT IS NOT DEEMED INCOMPETENT BY A PHYSICIAN OR COURT, PT CAN MAKE BAD DECISIONS FOR HIMSELF. CM EXPLAINED HOW TO FILE FOR GUARDIANSHIP OF A PERSON AND THAT THIS WOULD HAVE TO BE GRANTED FOR ANYONE TO MAKE PT DO SOMETHING AGAINST HIS WILL. JORGE REPORTS UNDERSTANDING. PT PLANS TO DISCHARGE HOME WITH HIS SISTER, PT REPORTS HIS SISTER WILL PICK HIM UP FOR DISCHARGE HOME. PT DECLINES [facility], [facility] OR REHAB PLACEMENT. PATIENT IS NOT APPROPRIATE FOR HOME HEALTH PER [facility]. Capture Manager: Brandin Garcia DCP- Discharge Planning Updated by [id number]: Brandin Garcia on 04/19/19 3:[address] Patient Name: ABBY PHILLIPS Admission Status: ER Accout number: [id number] Admission Date: 04-19-2019 : 1945 Admission Diagnosis: Attending: SAMUEL COOPER Current LOS: 1 Anticipated DC Date: 04-19-2019 Planned Disposition: Home Primary Insurance: [facility] MEDICARE SOLUTIONS Discharge Planning Comments: CM MET WITH PT IN ROOM TO DISCUSS DISCHARGE PLANNING AND NEEDS. PT REPORTS LIVING AT HOME DEPENDENTLY WITH HIS SISTER HANDY WHO IS STAYING WITH PT IN PT'S HOME TO CARE FOR PT. . PT HAS [facility] LIFT AND WHEELCHAIR WELL HOME AND PORTABLE OXYGEN FROM [facility]. PT HAS NO OUTSIDE SERVICES ASSISTING IN THE HOME [facility] DECLINED TO ADMIT HIM AND TOLD HIM HE HAS TO BE DOING BETTER FOR HOME HEALTH SERVICES. CM DISCUSSED AVAILABILITY OF HOME HEALTH, REHAB SERVICES AND MEDICAL EQUIPMENT. PT DECLINED [facility] OR REHAB PLACEMENT. PT DENIES DISCHARGE NEEDS, REPORTS HIS SISTER HANDY WILL PICK HIM UP FOR DISCHARGE HOME. PT REPORTS MISSING DIALYSIS BECAUSE HE WENT ON THURSDAY AND THEY DID NOT HAVE A SLING TO USE ON THE LIFT TO PICK HIM UP AT THE DIALYSIS UNIT. PT STATES HE HAS A SLING AT HOME AND FORGOT ABOUT IT. PT REPORTS HIS SISTER USES THE [employer] LIFT TO GET HIM TO THE WHEELCHAIR AND THEY WILL LEAVE THE SLING UNDER HIM FOR DIALYSIS TO USE FROM NOW ON. CHOICE SIGNED FOR [facility] TO VERIFY WITH THEM THAT THEY WILL NOT SEE PT. CM CALLED [facility], , LEFT MESSAGE ASKING FOR THE NURSE TO CALL CM BACK. PT PLANS TO DISCHARGE HOME WITH HIS SISTER, PT REPORTS HIS SISTER WILL PICK HIM UP FOR DISCHARGE HOME. PT DECLINES [facility], [facility] OR REHAB PLACEMENT. Capture Manager: Brandin Garcia Appended by Brandin Garcia on 04/19/2019 16:56 CDT: CM RECEIVED CALL FROM JERICA OF [facility] WHO INFORMED CM THAT THEY DID GO FOR THE HOME HEALTH ADMIT AND INFORMED PT AND FAMILY THAT PT NEEDS REHAB AND IS NOT APPROPRIATE FOR HOME HEALTH SERVICES AT THIS TIME. PT PLANS TO DISCHARGE HOME WITH HIS SISTER, PT REPORTS HIS SISTER WILL PICK HIM UP FOR DISCHARGE HOME. PT DECLINES [facility], [facility] OR REHAB PLACEMENT. Capture Manager: Brandin Garcia DCPIA - Discharge Planning Initial Assessment Updated by [id number]: Brandin Garcia on 04/19/19 3:31 pm * Is the patient Alert and Oriented? Yes * How many steps to enter\\exit or inside your home? NONE * PCP DR. ARACELI SIDHU * [facility] * Preadmission Environment Home with Family * ADLs Partial Dependent * Partial ADLs (Assistance needed) Ambulation Bathing Dressing Medication Management Toileting Transfers * Equipment [employer] Lift Oxygen Wheelchair * Other Equipment HOME AND PORTABLE OXYGEN, [facility] * List name and contact numbers for known caregivers / representatives who currently or will assist patient after discharge: HANDY JONES, SISTER [phone] JORGE GORDON, SISTER, CHARLEY PHILLIPS, SON, * Verbal permission to speak to the caregivers and representatives has been obtained from the patient. Yes * Community resources currently utilized None * Please name any agencies selected above. PT HAD INTAKE WITH [facility] FROM [place], ACCORDING TO PT, THEY DECLINED T PROVIDE SERVICES UNTIL HE WAS "DOING BETTER". * Additional services required to return to the preadmission environment? No * Can the patient safely return to the preadmission environment? Yes * Has this patient been hospitalized within the prior 30 days at any hospital? Yes External Providers External Provider: OTHER-OTHER Next Contact Date: 04/22/2019 Service Request Date: Service Type: Resolution: Reviewer: Comments: External Provider: OTHER-OTHER Next Contact Date: 04/22/2019 Service Request Date: Service Type: Resolution: Reviewer: Comments: Coverage Notice Reviewer: [id number] - Deborah Augustin Notice Issued Date-Time: 04/19/2019 9:30 Notice Type: Medicare Outpatient Observation Notice Notice Delivered To: Patient Relationship to Patient: Self Risk Control Consultant Name: Delivery Method: HAND - Hand Delivered Anusha Days: Prior Verbal Notification: Recipient Understood Notice: Yes Recipient Signature: Yes Med Rec Note Co-signed by Attending: Coverage Notice Comment: Reviewer: [id number] Garcia Notice Issued Date-Time: 04/19/2019 12:15 Notice Type: Patient Choice Letter Notice Delivered To: Patient Relationship to Patient: Risk Control Consultant Name: Delivery Method: HAND - Hand Delivered Anusha Days: Prior Verbal Notification: Recipient Understood Notice: Yes Recipient Signature: Yes Med Rec Note Co-signed by Attending: Coverage Notice Comment: [facility] Reviewer: [id number] Skylar Garcia Notice Issued Date-Time: 04/21/2019 11:45 Notice Type: IM Discharge Notice Notice Delivered To: Patient Relationship to Patient: Risk Control Consultant Name: Delivery Method: HAND - Hand Delivered Anusha Days: Prior Verbal Notification: Recipient Understood Notice: Yes Recipient Signature: Yes Med Rec Note Co-signed by Attending: Coverage Notice Comment: Last DP export: 04/21/19 4:16 Patient Name: ABBY PHILLIPS Page [id number] at 1004 All edits/amendments must be made on the electronic document DICTATION DATE: 04/22/19 1003 VP PACKAGING: DM 04/22/19 1003 RPT#: [id number] DC DATE: STATUS: ADM IN [facility] [address] [place] [address] END OF REPORT
--- NOTE | 2019-04-22 11:01 | MORECARE ---
CASE MANAGEMENT DISCHARGE SUMMARY PATIENT: ABBY PHILLIPS UNIT: [id number] ADM DATE: 04/19/19 AGE: 73 : [birth year] SEX: M ROOM/BED: D.0324 AUTHOR: BYRONDOC PHYSICIAN: REFERRING PHYSICIAN: SAMUEL COOPER MD DATE OF SERVICE: 04/22/19 Discharge Plan Patient Name: ABBY PHILLIPS Facility: [facility]:[place] : 1945 Planned Disposition: Long Term Facility Anticipated Discharge Date: 04/21/19 Discharge Date: Expected LOS: 2 Initial Reviewer: [id number] Initial Review Date: 04/18/2019 Generated: 04/22/19 12:01 pm Comments DCP- Discharge Planning Updated by [id number]: Brandin Garcia on 04/21/19 4:[address] Patient Name: ABBY PHILLIPS Encounter No: [id number] : 1945 Primary Insurance: [employer] Anticipated DC Date: 04-21-2019 Planned Disposition: Long Term Facility External Planned Provider: [facility] OR OTHER [facility] IN [place] DCP follow-up note: CM RECEIVED CALL FROM CHARLEY PHILLIPS, PT'S SON, WHO REPORTS THAT HE HAS TALKED TO PT VIA PHONE AND PT IS NOW AGREEING TO GO TO [facility] RE[facility] IN [place], CLOSE TO HIS SON. CM ATTEMPTED TO SEE PT WHO WAS OUT OF ROOM AT APPROXIMATELY 1345 HOURS. CM WILL SPEAK TO PT SOON POSSIBLE REGARDING [facility] REHAB IN [place] AND SEND REFERRALS IF PT WILL SIGN THE CONSENT. SELENA Escobedo DCP- Discharge Planning Updated by [id number]: Brandin Garcia on 04/21/19 11:[address] Patient Name: ABBY PHILLIPS Encounter No: [id number] : 1945 Primary Insurance: [facility] MEDICARE SOLUTIONS Anticipated DC Date: 04-21-2019 Planned Disposition: Left Against Medical Advice DCP follow-up note: CM SPOKE TO BEDSIDE NURSE WHO REPORTS PT'S SISTER, JORGE, CALLED AND STATES SHE WILL NOT BE PICKING PT UP FOR TRANSPORT HOME. CM MET WITH PT IN ROOM TO DISCUSS DISCHARGE PLANNING AND NEEDS. PT REPORTS STILL PLANNING TO LEAVE WHEN HE FINDS A RIDE. CM EXPLAINED THAT PT'S FAMILY MEMBERS ARE CALLING AND INFORMING HOSPITAL STAFF THEY ARE NOT PICKING UP PT. PT STATES HE HAS FRIENDS THAT ARE GOING TO HELP. CM PROVIDED PT WITH MEDICARE WEBSITE RESULTS FOR [facility] REHABS WITHIN 50 MILES OF HIS HOME. CM EXPLAINED THAT [facility] WILL NOT ACCEPT PT BACK AND THAT IF PT CHANGES HIS MIND AND DECIDES TO GO TO REHAB, CM WILL NEED PT'S TOP TWO SELECTIONS AND SIGNATURE ON THE CHOICE FORM. IMPORTANT MESSAGE FROM MEDICARE PROVIDED AND EXPLAINED. PT ASKED CM TO CALL ADAM SNACHES, PHARMACIST AT [facility] TO HAVE HER , JOHN SANCHES, CALL PT. CM CALLED AND WAS ADVISED BY ADAM THAT AGUSTIN SPOKE TO PT YESTERDAY AND SHE WILL LET HER KNOW THAT PT WANTS TO TALK TO HIM AGAIN. CM STILL REFUSING [facility] FACLITY PLACEMENT. CM WAITING ON PT TO DEVELOP TRANSPORTATION HOME. IF TRANSPORTATION IS VERIFIED, CALL JEANN[facility], , WILL HAS AGREED TO ARRANGE PORTABLE OXGYEN TO HOSPITAL FOR PT TO LEAVE HOSPITAL. CM TO CONTINUE TO FOLLOW AND ASSIST NEEDED. Tub Washer: Brandin Garcia DCP- Discharge Planning Updated by [id number]: Brandin Garcia on 04/21/19 8:[address] Patient Name: ABBY PHILLIPS Encounter No: [id number] : 1945 Primary Insurance: [facility] MEDICARE SOLUTIONS Anticipated DC Date: 04-21-2019 Planned Disposition: Left Against Medical Advice DCP follow-up note: CM SPOKE TO HERIBERTO SANCHES REGARDING PT'S DISCHARGE PLAN. TREATMENT TEAM CONCERNED THAT PT DOES NOT HAVE SAFE DISCHARGE PLAN. CM MET WITH HERIBERTO SANCHES WITH PT IN ROOM. PT INSISTS THAT HE WILL GO HOME, JOHN SANCHES, , WILL PICK HIM UP. PT REPORTS ALEXSANDRA LOPEZ, A FRIEND FROM [place] WILL ASSIST WITH CARING FOR PT IN HOME AND ASSIST WITH GETTING TO AND FROM DIALYSIS. PT REPORTS HE NORMALLY DRIVES HIMSELF TO AND FROM DIALYSIS AND IS ABLE TO TRANSFER HIMSELF TO A WHEELCHAIR, GET TO HIS CAR, GET THE WHEELCHAIR INTO THE TRUCK OF THE CAR AND THEN WALK TO AND GET INTO THE DRIVERS SEAT HOLDING ON TO THE CAR. PT REPORTS HAVING ELECTRIC AND MANUAL WHEELCHAIR AND IS ABLE TO TRANSFER HIMSELF FROM BED TO CHAIR AND CHAIR TO BED. PT DOES NOT KNOW THE NUMBER TO HIS FRIEND ALEXSANDRA, TO VERIFY HE WILL ASSIST AFTER DISCHARGE. PT REPORTS HIS SISTER HANDY LIVES IN HIS HOUSE AND HAS FOR FOUR MONTHS. CM ADVISED THAT FAMILY INFORMED STAFF HERE THAT PT NEEDS NURSING REHAB. PT REPORTS THAT HIS FAMILY IS WANTING TO KEEP HIM AWAY AND IN THE RESIDENTIAL. HERIBERTO SANCHES ADVISED THAT PT MUST HAVE A SAFE AND VERIFIABLE PLAN TO DISCHARGE HOME. CM ATTEMPTED TO CALL JOHN VERÓNICA, ; THERE WAS NO ANSWER AND NO MESSAGE MACHINE. CM CALLED [facility], , SPOKE TO CIVIL ENGINEERING MANAGER WILL WHO INFORMED CM THAT THEY CAN DELIVER PORTABLE OXYGEN TO PT'S ROOM FOR DISCHARGE IF NEEDED. HARSHAL SPOKE TO PT IN ROOM, HERIBERTO SANCHES WAS IN ROOM SPEAKING TO PT. PT STATES HE IS LEAVING "AMA". HERIBERTO SANCHES INFORMED PT THAT PT MUST HAVE A PERSON TO VERIFY THEY ARE TRANSPORTING PRIOR TO ANY AMA FORMS BEING PRESENTED. CM ADVISED PT IF HE IS ABLE TO VERIFY TRANSPORATATION BY CM SPEAKING TO THAT PERSON AND THEY AGREE TO DISCOVERY MANAGER PT, CM WILL ASK JEANNIE TO DELIVER PORTABLE OXYGEN TO ROOM. CM ASKED THAT IF PT CHANGES HIS MIND AND DECIDES TO GO TO [facility] REH[facility], TO PLEASE NOTIFY CM AND CM WILL BE GLAD TO ASSIST WITH PLACEMENT. PT DECLINED. CM WAITING ON PT TO DEVELOP TRANSPORTATION HOME. IF TRANSPORTATION IS VERIFIED, CALL JEANNIE, , WILL HAS AGREED TO ARRANGE PORTABLE OXGYEN TO HOSPITAL FOR PT TO LEAVE HOSPITAL. CM TO CONTINUE TO FOLLOW AND ASSIST NEEDED. Tub Washer: Brandin Garcia DCP- Discharge Planning Updated by [id number]: Brandin Garcia on 04/20/19 1:[address] Patient Name: ABBY PHILLIPS Encounter No: [id number] : 1945 Primary Insurance: [facility] MEDICARE SOLUTIONS Anticipated DC Date: 04-19-2019 Planned Disposition: Home DCP follow-up note: CM MET WITH PT IN ROOM AND ENCOURAGED PT TO GO TO REHAB PRIOR TO DISCHARGE HOME. PT CONTINUES TO REFUSE AND REPORTS HIS SISTER WILL PICK HIM UP FOR DISCHARGE HOME. PT STATES HE MAY NEED OXYGEN FROM [facility] AGAIN TO GO HOME. CM EXPLAINED THAT IF HIS SISTER IS PICKING HIM UP AND SHE IS STAYING WITH PT IN PT'S HOME, SHE SHOULD BRING OXYGEN WITH HER. PT WILL REQUEST HIS SISTER BRING OXYGEN WITH HER. CM RECEIVED CALL FROM MIRIAM GORDON, , WHO INFORMED CM THAT PT HAS BEEN CALLING STATING HE IS GOING TO BE DISCHARGED TODAY AND NEEDS A RIDE HOME. JORGE STATES PT NEEDS TO GO BACK TO NURSING FACILITY FOR REHAB AND NOT HOME. CM EXPLAINED THAT CM CANNOT MAKE PT DO SOMETHING AGAINST PT'S WILL AND THAT IF PT IS NOT DEEMED INCOMPETENT BY A PHYSICIAN OR COURT, PT CAN MAKE BAD DECISIONS FOR HIMSELF. CM EXPLAINED HOW TO FILE FOR GUARDIANSHIP OF A PERSON AND THAT THIS WOULD HAVE TO BE GRANTED FOR ANYONE TO MAKE PT DO SOMETHING AGAINST HIS WILL. JORGE REPORTS UNDERSTANDING. PT PLANS TO DISCHARGE HOME WITH HIS SISTER, PT REPORTS HIS SISTER WILL PICK HIM UP FOR DISCHARGE HOME. PT DECLINES RESIDENTIAL, [facility] OR REHAB PLACEMENT. PATIENT IS NOT APPROPRIATE FOR HOME HEALTH PER [employer] PENDING SALE TO [facility]. Tub Washer: Brandin Garcia DCP- Discharge Planning Updated by [id number]: Brandin Garcia on 04/19/19 3:[address] Patient Name: ABBY PHILLIPS Admission Status: ER Accout number: [id number] Admission Date: 04-19-2019 : 1945 Admission Diagnosis: Attending: SAMUEL COOPER Current LOS: 1 Anticipated DC Date: 04-19-2019 Planned Disposition: Home Primary Insurance: [facility] MEDICARE SOLUTIONS Discharge Planning Comments: CM MET WITH PT IN ROOM TO DISCUSS DISCHARGE PLANNING AND NEEDS. PT REPORTS LIVING AT HOME DEPENDENTLY WITH HIS SISTER HANDY WHO IS STAYING WITH PT IN PT'S HOME TO CARE FOR PT. . PT HAS [facility] LIFT AND WHEELCHAIR WELL HOME AND PORTABLE OXYGEN FROM [facility]. PT HAS NO OUTSIDE SERVICES ASSISTING IN THE HOME [facility] DECLINED TO ADMIT HIM AND TOLD HIM HE HAS TO BE DOING BETTER FOR HOME HEALTH SERVICES. CM DISCUSSED AVAILABILITY OF HOME HEALTH, REHAB SERVICES AND MEDICAL EQUIPMENT. PT DECLINED RESIDENTIAL OR REHAB PLACEMENT. PT DENIES DISCHARGE NEEDS, REPORTS HIS SISTER HANDY WILL PICK HIM UP FOR DISCHARGE HOME. PT REPORTS MISSING DIALYSIS BECAUSE HE WENT ON THURSDAY AND THEY DID NOT HAVE A SLING TO USE ON THE LIFT TO PICK HIM UP AT THE DIALYSIS UNIT. PT STATES HE HAS A SLING AT HOME AND FORGOT ABOUT IT. PT REPORTS HIS SISTER USES THE [employer] LIFT TO GET HIM TO THE WHEELCHAIR AND THEY WILL LEAVE THE SLING UNDER HIM FOR DIALYSIS TO USE FROM NOW ON. CHOICE SIGNED FOR [employer] PENDING SALE TO [facility] TO VERIFY WITH THEM THAT THEY WILL NOT SEE PT. CM CALLED [employer] [facility]ENDING [facility] TO [facility], , LEFT MESSAGE ASKING FOR THE NURSE TO CALL CM BACK. PT PLANS TO DISCHARGE HOME WITH HIS SISTER, PT REPORTS HIS SISTER WILL PICK HIM UP FOR DISCHARGE HOME. PT DECLINES RESIDENTIAL, [facility] OR REHAB PLACEMENT. Tub Washer: Brandin Garcia Appended by Brandin Garcia on 04/19/2019 16:56 CDT: CM RECEIVED CALL FROM JERICA OF [employer] [facility]ENDING [facility] WHO INFORMED CM THAT THEY DID GO FOR THE HOME HEALTH ADMIT AND INFORMED PT AND FAMILY THAT PT NEEDS REHAB AND IS NOT APPROPRIATE FOR HOME HEALTH SERVICES AT THIS TIME. PT PLANS TO DISCHARGE HOME WITH HIS SISTER, PT REPORTS HIS SISTER WILL PICK HIM UP FOR DISCHARGE HOME. PT DECLINES RESIDENTIAL, [facility] OR REHAB PLACEMENT. Tub Washer: Brandin Garcia DCPIA - Discharge Planning Initial Assessment Updated by [id number]: Brandin Garcia on 04/22/19 10:55 am * Is the patient Alert and Oriented? Yes * How many steps to enter\\exit or inside your home? NONE * PCP DR. ARACELI SIDHU * Pharmacy [facility] * Preadmission Environment Home with Family * ADLs Partial Dependent * Partial ADLs (Assistance needed) Ambulation Bathing Dressing Medication Management Toileting Transfers * Equipment Areli Lift Oxygen Wheelchair * Other Equipment HOME AND PORTABLE OXYGEN, [facility] * List name and contact numbers for known caregivers / representatives who currently or will assist patient after discharge: HANDY JONES, SISTER [phone] JORGE GORDON, SISTER, CHARLEY PHILLIPS, SON, * Verbal permission to speak to the caregivers and representatives has been obtained from the patient. Yes * Community resources currently utilized None * Please name any agencies selected above. PT HAD INTAKE WITH [facility] FROM [place], ACCORDING TO PT, THEY DECLINED T PROVIDE SERVICES UNTIL HE WAS "DOING BETTER" OUTPATIENT DIALYSIS , [facility], [facility], [facility]. PT REPORTS HE HAS BEEN DRIVING HIMSELF. * Additional services required to return to the preadmission environment? No * Can the patient safely return to the preadmission environment? Yes * Has this patient been hospitalized within the prior 30 days at any hospital? Yes Coverage Notice Reviewer: [id number] Skylar Deborah Augustin Notice Issued Date-Time: 04/19/2019 9:30 Notice Type: Medicare Outpatient Observation Notice Notice Delivered To: Patient Relationship to Patient: Self Behavioral Medical Director Name: Delivery Method: HAND - Hand Delivered Anusha Days: Prior Verbal Notification: Recipient Understood Notice: Yes Recipient Signature: Yes Med Rec Note Co-signed by Attending: Coverage Notice Comment: Reviewer: [id number] Skylar Garcia Notice Issued Date-Time: 04/19/2019 12:15 Notice Type: Patient Choice Letter Notice Delivered To: Patient Relationship to Patient: Behavioral Medical Director Name: Delivery Method: HAND - Hand Delivered Anusha Days: Prior Verbal Notification: Recipient Understood Notice: Yes Recipient Signature: Yes Med Rec Note Co-signed by Attending: Coverage Notice Comment: [facility] Reviewer: [id number] Skylar Garcia Notice Issued Date-Time: 04/21/2019 11:45 Notice Type: IM Discharge Notice Notice Delivered To: Patient Relationship to Patient: Behavioral Medical Director Name: Delivery Method: HAND - Hand Delivered Anusha Days: Prior Verbal Notification: Recipient Understood Notice: Yes Recipient Signature: Yes Med Rec Note Co-signed by Attending: Coverage Notice Comment: Last DP export: 04/22/19 9:04 Patient Name: ABBY PHILLIPS Page [id number] at 1101 All edits/amendments must be made on the electronic document DICTATION DATE: 04/22/191100 MONORAIL OPERATOR: APRIL 04/22/191100 RPT#: [id number] DC DATE: STATUS: ADM IN [facility] [address] [place] [address] END OF REPORT
--- NOTE | 2019-04-22 11:10 | NUR ---
I have reviewed this patient and I concur with the Shift Assessment completed by the Licensed Practical Nurse today this shift.
--- NOTE | 2019-04-22 11:17 | MORECARE ---
CASE MANAGEMENT DISCHARGE SUMMARY PATIENT: ABBY PHILLIPS UNIT: [id number] ADM DATE: 04/19/19 AGE: 73 : [birth year] SEX: M ROOM/BED: D.0888 AUTHOR: BYRON,DOC PHYSICIAN: REFERRING PHYSICIAN: SAMUEL COOPER MD DATE OF SERVICE: 04/22/19 Discharge Plan Patient Name: ABBY PHILLIPS Facility: [facility]:[place] : 1945 Planned Disposition: Group Home Facility Anticipated Discharge Date: 04/21/19 Discharge Date: Expected LOS: 2 Initial Reviewer: [id number] Initial Review Date: 04/18/2019 Generated: 04/22/19 12:16 pm Comments DCP- Discharge Planning Updated by [id number]: Brandin Garcia on 04/22/19 10:[address] Patient Name: ABBY PHILLIPS Encounter No: [id number] : 1945 Primary Insurance: [facility] MEDICARE SOLUTIONS Anticipated DC Date: 04-21-2019 Planned Disposition: Group Home Facility External Planned Provider: [facility] IN [place], MEDICARE REHAB BED DCP follow-up note: CM SPOKE TO PT IN ROOM REGARDING DISCHARGE PLANNING. PT WILL GO TO REHAB IN [place] SO HE WILL BE CLOSE TO HIS SON. PT ASKED CM TO HURRY UP HE IS TIRED OF BEING IN THE HOSPITAL. CM EXPLAINED TO PT THAT IF HE WOULD HAVE DECIDED SOONER, CM WOULD HAVE ALREADY BEEN WORKING ON REHAB PLACEMENT. PT SIGNED CONSENT FOR [facility] SUGGESTED BY HIS SON AND FOR ANY PRISON REHAB IN [place]. CM EXPLAINED TO PT THAT HIS INSURANCE MAY TAKE SEVERAL DAYS TO APPROVE OR DECLINE REHAB SERVICES AND THAT CM WILL HAVE TO FIND A FACILITY THAT WILL TRANSPORT TO DIALYSIS AND IF ALL OF THAT IS DONE, CM WILL HAVE TO REQUEST A NEW DIALYSIS UNIT. PT REPORTS UNDERSTANDING. CM CALLED [facility], , SPOKE TO KAVIN WHO WILL SCREEN FOR ADMISSION. CM FAXED REFERRAL TO [facility] AT [phone]. CM NOTIFIED PRASHAN[facility] OF [facility], , OF REFERRAL. CM FAXED REFERRAL FOR [facility] TO PRASHANTH AT [phone]. CM WAITING ADMISSION DETERMINATIONS FROM [facility] AND [facility]. Brandin Garcia CASE MANAGEMENT DCP- Discharge Planning Updated by [id number]: Brandin Garcia on 04/21/19 4:[address] Patient Name: ABBY PHILLIPS Encounter No: [id number] : 1945 Primary Insurance: [facility] MEDICARE SOLUTIONS Anticipated DC Date: 04-21-2019 Planned Disposition: Group Home Facility External Planned Provider: [facility] OTHER [facility] IN [place] DCP follow-up note: CM RECEIVED CALL FROM CHARLEY PHILLIPS, PT'S SON, WHO REPORTS THAT HE HAS TALKED TO PT VIA PHONE AND PT IS NOW AGREEING TO GO TO PRISON REHAB IN [place], CLOSE TO HIS SON. CM ATTEMPTED TO SEE PT WHO WAS OUT OF ROOM AT APPROXIMATELY 1345 HOURS. CM WILL SPEAK TO PT SOON POSSIBLE REGARDING PRISON REHAB IN [place] AND SEND REFERRALS IF PT WILL SIGN THE CONSENT. Brandin Garcia CASE MANAGEMENT DCP- Discharge Planning Updated by [id number]: Brandin Garcia on 04/21/19 11:[address] Patient Name: ABBY PHILLIPS Encounter No: [id number] : 1945 Primary Insurance: [facility] MEDICARE SOLUTIONS Anticipated DC Date: 04-21-2019 Planned Disposition: Left Against Medical Advice DCP follow-up note: CM SPOKE TO BEDSIDE NURSE WHO REPORTS PT'S SISTER, JORGE, CALLED AND STATES SHE WILL NOT BE PICKING PT UP FOR TRANSPORT HOME. CM MET WITH PT IN ROOM TO DISCUSS DISCHARGE PLANNING AND NEEDS. PT REPORTS STILL PLANNING TO LEAVE WHEN HE FINDS A RIDE. CM EXPLAINED THAT PT'S FAMILY MEMBERS ARE CALLING AND INFORMING HOSPITAL STAFF THEY ARE NOT PICKING UP PT. PT STATES HE HAS FRIENDS THAT ARE GOING TO HELP. CM PROVIDED PT WITH MEDICARE WEBSITE RESULTS FOR PRISON REHABS WITHIN 50 MILES OF HIS HOME. CM EXPLAINED THAT [facility] WILL NOT ACCEPT PT BACK AND THAT IF PT CHANGES HIS MIND AND DECIDES TO GO TO REHAB, CM WILL NEED PT'S TOP TWO SELECTIONS AND SIGNATURE ON THE CHOICE FORM. IMPORTANT MESSAGE FROM MEDICARE PROVIDED AND EXPLAINED. PT ASKED CM TO CALL ADAM SANCHES, PHARMACIST AT [facility] TO HAVE HER , JOHN SANCHES, CALL PT. CM CALLED AND WAS ADVISED BY ADAM THAT AGUSTIN SPOKE TO PT YESTERDAY AND SHE WILL LET HER KNOW THAT PT WANTS TO TALK TO HIM AGAIN. CM STILL REFUSING PRISON FACLITY PLACEMENT. CM WAITING ON PT TO DEVELOP TRANSPORTATION HOME. IF TRANSPORTATION IS VERIFIED, CALL JEANN[facility] [phone], WILL HAS AGREED TO ARRANGE PORTABLE OXGYEN TO HOSPITAL FOR PT TO LEAVE HOSPITAL. CM TO CONTINUE TO FOLLOW AND ASSIST NEEDED. Orientation & Mobility Specialist: Brandin Garcia DCP- Discharge Planning Updated by [id number]: Brandin Garcia on 04/21/19 8:[address] Patient Name: ABBY PHILLIPS Encounter No: [id number] : 1945 Primary Insurance: [facility] MEDICARE SOLUTIONS Anticipated DC Date: 04-21-2019 Planned Disposition: Left Against Medical Advice DCP follow-up note: CM SPOKE TO HERIBERTO SANCHES REGARDING PT'S DISCHARGE PLAN. TREATMENT TEAM CONCERNED THAT PT DOES NOT HAVE SAFE DISCHARGE PLAN. CM MET WITH HERIBERTO SANCHES WITH PT IN ROOM. PT INSISTS THAT HE WILL GO HOME, JOHN SANCHES, , WILL PICK HIM UP. PT REPORTS ALEXSANDRA LOPEZ, A FRIEND FROM [facility] WILL ASSIST WITH CARING FOR PT IN HOME AND ASSIST WITH GETTING TO AND FROM DIALYSIS. PT REPORTS HE NORMALLY DRIVES HIMSELF TO AND FROM DIALYSIS AND IS ABLE TO TRANSFER HIMSELF TO A WHEELCHAIR, GET TO HIS CAR, GET THE WHEELCHAIR INTO THE TRUCK OF THE CAR AND THEN WALK TO AND GET INTO THE DRIVERS SEAT HOLDING ON TO THE CAR. PT REPORTS HAVING ELECTRIC AND MANUAL WHEELCHAIR AND IS ABLE TO TRANSFER HIMSELF FROM BED TO CHAIR AND CHAIR TO BED. PT DOES NOT KNOW THE NUMBER TO HIS FRIEND ALEXSANDRA, TO VERIFY HE WILL ASSIST AFTER DISCHARGE. PT REPORTS HIS SISTER HANDY LIVES IN HIS HOUSE AND HAS FOR FOUR MONTHS. CM ADVISED THAT FAMILY INFORMED STAFF HERE THAT PT NEEDS NURSING REHAB. PT REPORTS THAT HIS FAMILY IS WANTING TO KEEP HIM AWAY AND IN THE [facility]. HERIBERTO SANCHES ADVISED THAT PT MUST HAVE A SAFE AND VERIFIABLE PLAN TO DISCHARGE HOME. CM ATTEMPTED TO CALL JOHN SANCHES, ; THERE WAS NO ANSWER AND NO MESSAGE MACHINE. CM CALLED [facility], , SPOKE TO BANDER RAYNE WHO INFORMED CM THAT THEY CAN DELIVER PORTABLE OXYGEN TO PT'S ROOM FOR DISCHARGE IF NEEDED. CM SPOKE TO PT IN ROOM, HERIBERTO VERÓNICA WAS IN ROOM SPEAKING TO PT. PT STATES HE IS LEAVING "AMA". HERIBERTO SANCHES INFORMED PT THAT PT MUST HAVE A PERSON TO VERIFY THEY ARE TRANSPORTING PRIOR TO ANY AMA FORMS BEING PRESENTED. CM ADVISED PT IF HE IS ABLE TO VERIFY TRANSPORATATION BY CM SPEAKING TO THAT PERSON AND THEY AGREE TO AD OPERATIONS ASSOCIATE PT, CM WILL ASK [facility] TO DELIVER PORTABLE OXYGEN TO ROOM. CM ASKED THAT IF PT CHANGES HIS MIND AND DECIDES TO GO TO PRISON REHAB, TO PLEASE NOTIFY CM AND CM WILL BE GLAD TO ASSIST WITH PLACEMENT. PT DECLINED. CM WAITING ON PT TO DEVELOP TRANSPORTATION HOME. IF TRANSPORTATION IS VERIFIED, CALL JEANNIE, , WILL HAS AGREED TO ARRANGE PORTABLE OXGYEN TO HOSPITAL FOR PT TO LEAVE HOSPITAL. CM TO CONTINUE TO FOLLOW AND ASSIST NEEDED. Orientation & Mobility Specialist: Brandin Garcia DCP- Discharge Planning Updated by [id number]: Brandin Garcia on 04/20/19 1:[address] Patient Name: ABBY PHILLIPS Encounter No: [id number] : 1945 Primary Insurance: [facility] MEDICARE SOLUTIONS Anticipated DC Date: 04-19-2019 Planned Disposition: Home DCP follow-up note: CM MET WITH PT IN ROOM AND ENCOURAGED PT TO GO TO REHAB PRIOR TO DISCHARGE HOME. PT CONTINUES TO REFUSE AND REPORTS HIS SISTER WILL PICK HIM UP FOR DISCHARGE HOME. PT STATES HE MAY NEED OXYGEN FROM [facility] AGAIN TO GO HOME. HARSHAL EXPLAINED THAT IF HIS SISTER IS PICKING HIM UP AND SHE IS STAYING WITH PT IN PT'S HOME, SHE SHOULD BRING OXYGEN WITH HER. PT WILL REQUEST HIS SISTER BRING OXYGEN WITH HER. HARSHAL RECEIVED CALL FROM MIRIAM GORDON, , WHO INFORMED CM THAT PT HAS BEEN CALLING STATING HE IS GOING TO BE DISCHARGED TODAY AND NEEDS A RIDE HOME. JORGE STATES PT NEEDS TO GO BACK TO NURSING FACILITY FOR REHAB AND NOT HOME. HARSHAL EXPLAINED THAT CM CANNOT MAKE PT DO SOMETHING AGAINST PT'S WILL AND THAT IF PT IS NOT DEEMED INCOMPETENT BY A PHYSICIAN OR COURT, PT CAN MAKE BAD DECISIONS FOR HIMSELF. HARSHAL EXPLAINED HOW TO FILE FOR GUARDIANSHIP OF A PERSON AND THAT THIS WOULD HAVE TO BE GRANTED FOR ANYONE TO MAKE PT DO SOMETHING AGAINST HIS WILL. JORGE REPORTS UNDERSTANDING. PT PLANS TO DISCHARGE HOME WITH HIS SISTER, PT REPORTS HIS SISTER WILL PICK HIM UP FOR DISCHARGE HOME. PT DECLINES [facility], PRISON OR REHAB PLACEMENT. PATIENT IS NOT APPROPRIATE FOR HOME HEALTH PER [facility]. Orientation & Mobility Specialist: Brandin Garcia DCP- Discharge Planning Updated by [id number]: Brandin Garcia on 04/19/19 3:[address] Patient Name: ABBY PHILLIPS Admission Status: ER Accout number: [id number] Admission Date: 04-19-2019 : 1945 Admission Diagnosis: Attending: SAMUEL COOPER Current LOS: 1 Anticipated DC Date: 04-19-2019 Planned Disposition: Home Primary Insurance: [facility] MEDICARE SOLUTIONS Discharge Planning Comments: CM MET WITH PT IN ROOM TO DISCUSS DISCHARGE PLANNING AND NEEDS. PT REPORTS LIVING AT HOME DEPENDENTLY WITH HIS SISTER HANDY WHO IS STAYING WITH PT IN PT'S HOME TO CARE FOR PT. . PT HAS [employer] WHEELCHAIR WELL HOME AND PORTABLE OXYGEN FROM [facility]. PT HAS NO OUTSIDE SERVICES ASSISTING IN THE HOME [facility] DECLINED TO ADMIT HIM AND TOLD HIM HE HAS TO BE DOING BETTER FOR HOME HEALTH SERVICES. CM DISCUSSED AVAILABILITY OF HOME HEALTH, REHAB SERVICES AND MEDICAL EQUIPMENT. PT DECLINED [facility] OR REHAB PLACEMENT. PT DENIES DISCHARGE NEEDS, REPORTS HIS SISTER HANDY WILL PICK HIM UP FOR DISCHARGE HOME. PT REPORTS MISSING DIALYSIS BECAUSE HE WENT ON THURSDAY AND THEY DID NOT HAVE A SLING TO USE ON THE LIFT TO PICK HIM UP AT THE DIALYSIS UNIT. PT STATES HE HAS A SLING AT HOME AND FORGOT ABOUT IT. PT REPORTS HIS SISTER USES THE [employer] LIFT TO GET HIM TO THE WHEELCHAIR AND THEY WILL LEAVE THE SLING UNDER HIM FOR DIALYSIS TO USE FROM NOW ON. CHOICE SIGNED FOR [facility] TO VERIFY WITH THEM THAT THEY WILL NOT SEE PT. CM CALLED [facility], , LEFT MESSAGE ASKING FOR THE NURSE TO CALL CM BACK. PT PLANS TO DISCHARGE HOME WITH HIS SISTER, PT REPORTS HIS SISTER WILL PICK HIM UP FOR DISCHARGE HOME. PT DECLINES [facility], PRISON OR REHAB PLACEMENT. Orientation & Mobility Specialist: Brandin Garcia Appended by Brandin Garcia on 04/19/2019 16:56 CDT: CM RECEIVED CALL FROM JERICA OF [facility] [facility] WHO INFORMED CM THAT THEY DID GO FOR THE HOME HEALTH ADMIT AND INFORMED PT AND FAMILY THAT PT NEEDS REHAB AND IS NOT APPROPRIATE FOR HOME HEALTH SERVICES AT THIS TIME. PT PLANS TO DISCHARGE HOME WITH HIS SISTER, PT REPORTS HIS SISTER WILL PICK HIM UP FOR DISCHARGE HOME. PT DECLINES [facility], PRISON OR REHAB PLACEMENT. Orientation & Mobility Specialist: Brandin Garcia DCPIA - Discharge Planning Initial Assessment Updated by [id number]: Brandin Garcia on 04/22/19 11:13 am * Is the patient Alert and Oriented? Yes * How many steps to enter\\exit or inside your home? NONE * PCP DR. ARACELI SIDHU * Pharmacy [facility] * Preadmission Environment Home with Family * ADLs Partial Dependent * Partial ADLs (Assistance needed) Ambulation Bathing Dressing Medication Management Toileting Transfers * Equipment [employer] Lift Oxygen Wheelchair * Other Equipment HOME AND PORTABLE OXYGEN, [facility] * List name and contact numbers for known caregivers / representatives who currently or will assist patient after discharge: HANDY JONES, SISTER [phone] JORGE GORDON, SISTER, CHARLEY PHILLIPS, SON, * Verbal permission to speak to the caregivers and representatives has been obtained from the patient. Yes * Community resources currently utilized None * Please name any agencies selected above. PT HAD INTAKE WITH [facility] [facility] FROM [facility], ACCORDING TO PT, THEY DECLINED T PROVIDE SERVICES UNTIL HE WAS "DOING BETTER" OUTPATIENT DIALYSIS , [facility], [facility], [facility]. PT REPORTS HE HAS BEEN DRIVING HIMSELF. * Additional services required to return to the preadmission environment? No * Can the patient safely return to the preadmission environment? Yes * Has this patient been hospitalized within the prior 30 days at any hospital? Yes Coverage Notice Reviewer: [id number] Skylar Garcia Notice Issued Date-Time: 04/21/2019 11:45 Notice Type: IM Discharge Notice Notice Delivered To: Patient Relationship to Patient: Dude Wrangler Name: Delivery Method: HAND - Hand Delivered Anusha Days: Prior Verbal Notification: Recipient Understood Notice: Yes Recipient Signature: Yes Med Rec Note Co-signed by Attending: Coverage Notice Comment: Reviewer: [id number] Skylar Garcia Notice Issued Date-Time: 04/22/2019 16:05 Notice Type: Patient Choice Letter Notice Delivered To: Patient Relationship to Patient: Dude Wrangler Name: Delivery Method: HAND - Hand Delivered Anusha Days: Prior Verbal Notification: Recipient Understood Notice: Yes Recipient Signature: Yes Med Rec Note Co-signed by Attending: Coverage Notice Comment: [facility]. Reviewer: [id number] - Brandin Garcia Notice Issued Date-Time: 04/19/2019 12:15 Notice Type: Patient Choice Letter Notice Delivered To: Patient Relationship to Patient: Dude Wrangler Name: Delivery Method: HAND - Hand Delivered Anusha Days: Prior Verbal Notification: Recipient Understood Notice: Yes Recipient Signature: Yes Med Rec Note Co-signed by Attending: Coverage Notice Comment: [facility] Reviewer: [id number] - Deborah Augustin Notice Issued Date-Time: 04/19/2019 9:30 Notice Type: Medicare Outpatient Observation Notice Notice Delivered To: Patient Relationship to Patient: Self Dude Wrangler Name: Delivery Method: HAND - Hand Delivered Anusha Days: Prior Verbal Notification: Recipient Understood Notice: Yes Recipient Signature: Yes Med Rec Note Co-signed by Attending: Coverage Notice Comment: Last DP export: 04/22/19 10:01 Patient Name: ABBY HPILLIPS Page [id number] at 1117 All edits/amendments must be made on the electronic document DICTATION DATE: 04/22/19 1116 PIPE WASHER: APRIL 04/22/19 1116 RPT#: [id number] DC DATE: STATUS: ADM IN [facility] [address] [place] [address] END OF REPORT
[2019-04-22 12:00] VITALS: BP 117/72
--- NOTE | 2019-04-22 13:39 | NUR ---
PT HYPERTENSIVE WITH SYS BP OF 212. CALLED AND SPOKE WITH LUIS ALBERTO HDEZ APN WHO ORDERED 0.1MG CLONIDINE Q6HPR FOR SYS BP GREATER THAN 170. PT ALSO REPORTS OF SEVERE PAIN TO FINGERS ON LEFT HAND STATING "THEYRE BURNING BAD." LUIS ALBERTO ALSO ORDERED NORCO 7.5MG Q6HPRN. WILL ADMININSTER BOTH MEDICATIONS AND CTM.
[2019-04-22 16:04] VITALS: BP 157/62
--- NOTE | 2019-04-22 19:40 | NUR ---
RECEIVED REPORT, WILL ASSUME CARE OF PT, COMPLAINS OF PAIN ALL OVER, GAVE NORCO ORDER, BED IS LOW, SRX2, CALL LIGHT IN REACH, WILL CONTINUE PLAN OF CARE
[2019-04-22 20:02] VITALS: BP 181/55
--- NOTE | 2019-04-22 23:12 | NUR ---
BIN TRIPPER OPERATOR REPORTS PT REFUSED VITALS
--- NOTE | 2019-04-23 01:07 | NUR ---
I have reviewed this patient and I concur with the Shift Assessment completed by the Licensed Practical Nurse today this shift.
[2019-04-23 04:45] VITALS: BP 166/66
[2019-04-23 05:40] LABS: BASOPHILS 0.1 % (0-2); EOSINOPHILS 1.2 % (0-7); HEMATOCRIT 28.4 % (42.0-54.0); HEMOGLOBIN 8.5 g/dL (13.5-17.5); IMMATURE GRANULOCYTES 0.7 % (0-5); LYMPHOCYTES 17.8 % (15-50); MCH 25.1 pg (26.0-34.0); MCHC 29.9 g/dL (31.0-37.0); MCV 83.8 fL (80.0-100.0); MEAN PLATELET VOLUME 9.9 fL (7.4-10.4); MONOCYTES 10.7 % (2-11); NEUTROPHILS 69.5 % (40-80); PLATELET COUNT 297 10x3/uL (130-400); RBC 3.39 10x6/uL (4.20-6.10); RDW 16.6 % (11.5-14.5); WBC 14.1 10x3/uL (4.8-10.8)
[2019-04-23 05:56] LABS: CALCIUM 7.9 mg/dL (8.5-10.1); CARBON DIOXIDE 28.7 mmol/L (21.0-32.0); PHOSPHOROUS 2.3 mg/dL (2.5-4.9); POTASSIUM - SERUM 3.7 mmol/L (3.5-5.1); VANCOMYCIN - RANDOM 10.4 ug/mL (10.0-20.0)
[2019-04-23 05:59] LABS: CREATININE - SERUM 3.8 mg/dL (0.6-1.3)
--- NOTE | 2019-04-23 07:54 | NUR ---
PATIENT REQUESTED TO BE TURNED TO HIS RIGHT SIDE. HE HAS A PEG TUBE IN LEFT ABD. HE DOES NOT HAVE A GOWN OR ANYTHING , JUST A SHEET. THE ROOM IS COOL AND HE REPORTS THAT HE IS FEELING HOT.
[2019-04-23 08:00] VITALS: BP 155/62
--- NOTE | 2019-04-23 09:04 | NUR ---
Patient will be going to dialysis in about 1 hour. Holding lowpressor and lasix after discussing with the patient and dialysis nurse.
--- NOTE | 2019-04-23 11:01 | NUR ---
PATIENT IS IN DIALYSIS AT THIS TIME.
--- NOTE | 2019-04-23 14:31 | NUR ---
PATIENT IS BACK FROM DIALYSIS. THEY REMOVED 4 LITERS.
--- NOTE | 2019-04-23 14:39 | NUR ---
PATIENT IS SITTING UP IN BED, HE ATE LUNCH AND DENIES ANY NEEDS AT THIS TIME.
[2019-04-23 16:00] VITALS: BP 145/68
--- NOTE | 2019-04-23 17:45 | NUR ---
Changed peg tube dressing. It was stuck to the skin with green drainage. Soaked it first with normal saline, then removed it when it came loose at no discomfort to the patient. Applied the slit gauze to keep area clean and dry. redressed the right hand iv. IV is infusing as ordered.
[2019-04-23 20:35] VITALS: BP 139/45
--- NOTE | 2019-04-23 22:59 | NUR ---
INITIAL ROUNDS COMPLETED AT 1914 HRS. PT HAS C/O NAUSEA. DEMANDING SOMETHING FOR NAUSEA. INFORMED PT NO ORDERS AND WILL CALL MD. PT DEMANDING SOMETHING NOW. INFORMED PT AGAIN THAT MD NEEDED TO BE CALLED FOR ORDER. RENAL SERVICES CALLED AT 0 HRS. LUIS ALBERTO HDEZ APN RETURNED CALL. INFIRMED OF PT'S/O NAUSEA. NEW ORDERS RECEIVED AND NOTED. ZOFRAN 4MG SIVP GIVEN. ASSESSMENT COMPLETED AT 2024 HRS. PT STATED ZOFRAN ALLEVIATED NAUSEA. VSS. 02 2LNC. IV TO R WRIST SL. R CHEST HEMOAPLIT CLEAN, DRY AND INTACT. IMMATURE FISTULA TO THE L ARM WITH BRUIT AND THRILL. LUNGS DIMINISHED N BASES BILAT. TIP OF R THUMB AND R INDEX FINGER BLACK. PEG TUBE NOTED. THURSTON. PM FSBS 205. 4 UNITS HUMALOG GIVEN SUB-Q TO ABD. PM MEDS GIVEN. PM SNACK SERVED. PT REPOSITIONED IN BED FOR COMFORT. MEPILEX NOTED TO BUTTOCKS. NORCO 7.5 PO GIVEN AT 2300 FOR C/O R THUMB PAIN. WILL CONTINUE TO MONITOR. SR UP X2, CALL LIGHT WITHIN REACH.
--- NOTE | 2019-04-23 23:28 | NUR ---
PT REFUSES VS AT THIS TIME.
--- NOTE | 2019-04-24 00:34 | NUR ---
TYLENOL 650 MG PO GIVEN FOR C/O BUTTOCKS PAIN. REPOSITIONED IN BED PER REQUEST. SR UP X2,CALL LIGHT WITHIN REACH.
--- NOTE | 2019-04-24 02:21 | NUR ---
PT YELLING AT CIRCUIT MANAGER STATING SHE IS USELESS. INFORMED PT NOT TO SPEAK TO STAFF THAT WAY. PT THEN STATED "WHEN I PUT MY CALL LIGHT ON YOU BETTER BE HERE IMMEDIATELY!" INFORMED PT I WILL ANSWER HIS CALL LIGHT IN A TIMELY MANNER BUT IF THIS NURSE IS IN ANOTHER PT'S ROOM I WOULD BE A FEW MINUTES. PT THEN GRUMBLED. REPOSITIONED IN BED. CALL LIGHT WITHIN REACH.
--- NOTE | 2019-04-24 04:18 | NUR ---
PT REFUSES 0400 VS. CALL LIGHT WITHIN REACH.
[2019-04-24 04:54] LABS: BASOPHILS 0.2 % (0-2); EOSINOPHILS 0.7 % (0-7); HEMATOCRIT 29.8 % (42.0-54.0); HEMOGLOBIN 8.9 g/dL (13.5-17.5); IMMATURE GRANULOCYTES 0.6 % (0-5); LYMPHOCYTES 14.4 % (15-50); MCH 25.6 pg (26.0-34.0); MCHC 29.9 g/dL (31.0-37.0); MEAN PLATELET VOLUME 10.3 fL (7.4-10.4); MONOCYTES 9.1 % (2-11); PLATELET COUNT 306 10x3/uL (130-400); RBC 3.47 10x6/uL (4.20-6.10); RDW 16.7 % (11.5-14.5); WBC 17.5 10x3/uL (4.8-10.8)
--- NOTE | 2019-04-24 04:55 | NUR ---
PT HAD Ericka PAK LPN REMOVE MEPILEX TO COCCYX AND APPLY LAILA'S TO AREA EARLIER IN THE SHIFT. PT NOW REQUESTS MEPILEX BE PLACED BACK ON WOUNDS ARE STINGING. 2 SORES NOTED. #1 TO COCCYX STAGE 3 APPROX 1CM X 0.25 CM AND 0.25 CM DEEP. 2ND SORE STAGE 2 IRREGULAR SHAPED 3CM X 5CM. AREA CLEANED AND DRIED AND NEW MEPILEX APPLIED. CALL LIGHT WITHIN REACH.
[2019-04-24 05:00] LABS: MCV 85.9 fL (80.0-100.0)
[2019-04-24 05:13] LABS: ANION GAP 12.1 mmol/L (8-16); CALCIUM 8.5 mg/dL (8.5-10.1); CARBON DIOXIDE 28.3 mmol/L (21.0-32.0); CREATININE - SERUM 3.4 mg/dL (0.6-1.3); VANCOMYCIN - RANDOM 9.9 ug/mL (10.0-20.0)
[2019-04-24 05:17] LABS: POTASSIUM - SERUM 4.4 mmol/L (3.5-5.1)
--- NOTE | 2019-04-24 07:15 | NUR ---
PT REFUSED 2400 AND 0400 VS. CONTINUES TO HAVE C/O L THUMB PAIN. CALL LIGHT WITHIN REACH.
--- NOTE | 2019-04-24 07:32 | NUR ---
PATIENT IS RESTING ON HIS BACK IN BED. HE HAS HAD ZOFRAN FOR NAUSEA LAST NIGHT. HE DENIES ANY NEEDS AT THIS TIME.
[2019-04-24 08:47] VITALS: BP 160/57
--- NOTE | 2019-04-24 10:21 | NUR ---
PATIENT IS REQUESTING PAIN MEDICATION. THE MEDICATION IS NOT LOADED IN THE PIXIS , CALLED PHARM AND THEY WILL REFILL .
--- NOTE | 2019-04-24 11:21 | NUR ---
removed iv from right wrist because it was dislodged and sore. catheter intact. patient is refusing to have another iv placed at this time. He is refusing the in and out cath, however he states that he will use the urinal for the urine sample. Will come back and aask him to reconsider the IV in about 30 minutes.
[2019-04-24 13:04] VITALS: BP 143/52
--- NOTE | 2019-04-24 14:58 | NUR ---
PT REFUSED CXR ON 04/24/19 @ 1500. VERBALIZED TO NURSE TIAN
--- NOTE | 2019-04-24 16:24 | NUR ---
PATIENT AGREED TO GET AN IV PLACED. I ATTEMPTED AN IV AND WAS UNABLE TO. ASKED ANOTHER NURSE ON THE FLOOR TO ATTEMPT THE IV.
--- NOTE | 2019-04-24 16:58 | NUR ---
IV STARTED BY GOPI LOMBARDI IN RIGHT WRIST.
--- NOTE | 2019-04-24 17:27 | NUR ---
1645 20 GAUGE IV PLACED TO RIGHT ANTERIOR WRIST X 1 STICK. GOOD BLOOD RETURN, EASY FLUSH. TOLERATED IV PLACEMENET WELL. IV TAPED, DATED AND SECURED. NO DISTRESS.
[2019-04-24 17:47] VITALS: BP 107/46
--- NOTE | 2019-04-24 19:32 | NUR ---
INITIAL ROUNDS COMPLETED. NO DISTRESS NOTED. CALL LIGHT WITHIN REACH.
[2019-04-24 20:32] VITALS: BP 150/58
--- NOTE | 2019-04-24 22:17 | NUR ---
ASSESSMENT COMPLETED AT 1945 HRS. VSS. PT ALERT AND ORIENTED TO PERSON, PLACE AND TIME. THURSTON. O2 2LNC. LUNGS DIMINISHED IN BASES BILAT. PT HS A PRODUCTIVE COUGH WITH GARCIA SPUTUM NOTED. MEPILEX TO COCCYX AND BUTTOCKS CLEAN,DRY AND INTACT. THE TIPS OF R THUMB AND R INDEX FINGER NECROTIC. L ARM FISTULA WITH GOOD BRUIT AND THRILL. R CHEST HEMOSPLIT CLEAN, DRY AND INTACT. PEG TUBE NOTED. GREEN EXUDATE NOTED AROUND INSERTION SITE. AREA CLEANED AND NEW DRAIN SPONGES APPLIED. PM FSBS 259. 6 UNITS HUMALOG GIVEN SUB-Q TO UPPER R ARM. PM MEDS GIVEN. PM SNACK SERVED. PT REPOSITIONED IN BED FOR COMFORT. PT REFUSES IN AND OUT CATH. CLEAN CATH URINE OBTAIN. URINE DARKA ND CLOUDY. SENT TO LAB. PT CURRENTLY RESTING WITH EYES CLOSED. RESP EVEN AND REGULAR. SR UP X2, CALL LIGHT WITHIN REACH.
[2019-04-24 23:51] VITALS: BP 159/50
--- NOTE | 2019-04-25 00:03 | NUR ---
NORCO 7.5MG PO GIVEN FOR C/O R THUMB PAIN. CALL LIGHT WITHIN REACH.
--- NOTE | 2019-04-25 02:08 | NUR ---
PT RESTING WITH EYES CLOSED. RESP EVEN AND REGULAR. SR UP X2, CALL LIGHT WITHIN REACH.
--- NOTE | 2019-04-25 04:16 | NUR ---
PT REQUESTING NORCO FOR CHRONIC PAIN. INFORMED NEXT DOSE NOT DUE UNTIL 0600. WILL CONTINUE TO MONITOR.
[2019-04-25 04:30] VITALS: BP 157/47
--- NOTE | 2019-04-25 04:47 | NUR ---
PT REFUSES AM LAB DRAW.
--- NOTE | 2019-04-25 06:45 | NUR ---
AM FSBS 150. NO COVERGE NECESSARY. PT UNCOOPERATIVE WITH LAB THIS AM. STATES PAIN IS NOW 5/10. WILL CONTINUE TO MONITOR. CALL LIGHT WITHIN REACH.
--- NOTE | 2019-04-25 08:57 | MORECARE ---
CASE MANAGEMENT DISCHARGE SUMMARY PATIENT: ABBY PHILLIPS UNIT: [id number] ADM DATE: 04/19/19 AGE: 73 : [birth year] SEX: M ROOM/BED: D.2743 AUTHOR: BYRON,DOC PHYSICIAN: REFERRING PHYSICIAN: SAMUEL COOPER MD DATE OF SERVICE: 04/25/19 Discharge Plan Patient Name: ABBY PHILLIPS Facility: [facility]:[place] : 1945 Planned Disposition: Long Term Facility Anticipated Discharge Date: 04/21/19 Discharge Date: Expected LOS: 2 Initial Reviewer: [id number] Initial Review Date: 04/18/2019 Generated: 04/25/19 9:57 am Comments DCP- Discharge Planning Updated by [id number]: Brandin Garcia on 04/22/19 10:[address] Patient Name: ABBY PHILLIPS Encounter No: [id number] : 1945 Primary Insurance: [facility] MEDICARE SOLUTIONS Anticipated DC Date: 04-21-2019 Planned Disposition: Long Term Facility External Planned Provider: [facility] IN [place], MEDICARE REHAB BED DCP follow-up note: CM SPOKE TO PT IN ROOM REGARDING DISCHARGE PLANNING. PT WILL GO TO REHAB IN [place] SO HE WILL BE CLOSE TO HIS SON. PT ASKED CM TO HURRY UP HE IS TIRED OF BEING IN THE HOSPITAL. CM EXPLAINED TO PT THAT IF HE WOULD HAVE DECIDED SOONER, CM WOULD HAVE ALREADY BEEN WORKING ON REHAB PLACEMENT. PT SIGNED CONSENT FOR [facility] SUGGESTED BY HIS SON AND FOR ANY [facility] IN [place]. CM EXPLAINED TO PT THAT HIS INSURANCE MAY TAKE SEVERAL DAYS TO APPROVE OR DECLINE REHAB SERVICES AND THAT CM WILL HAVE TO FIND A FACILITY THAT WILL TRANSPORT TO DIALYSIS AND IF ALL OF THAT IS DONE, CM WILL HAVE TO REQUEST A NEW DIALYSIS UNIT. PT REPORTS UNDERSTANDING. CM CALLED [facility], , SPOKE TO KAVIN WHO WILL SCREEN FOR ADMISSION. CM FAXED REFERRAL TO [facility] AT [phone]. CM NOTIFIED [facility] OF [facility], , OF REFERRAL. CM FAXED REFERRAL FOR [facility] TO [facility] AT [phone]. CM WAITING ADMISSION DETERMINATIONS FROM [facility] AND [facility]. Brandin Garcia CASE MANAGEMENT DCP- Discharge Planning Updated by [id number]: Brandin Garcia on 04/21/19 4:[address] Patient Name: ABBY PHILLIPS Encounter No: [id number] : 1945 Primary Insurance: [facility] MEDICARE SOLUTIONS Anticipated DC Date: 04-21-2019 Planned Disposition: Long Term Facility External Planned Provider: [facility] OTHER [facility] IN [place] DCP follow-up note: CM RECEIVED CALL FROM CHARLEY PHILLIPS, PT'S SON, WHO REPORTS THAT HE HAS TALKED TO PT VIA PHONE AND PT IS NOW AGREEING TO GO TO [facility] IN [place], CLOSE TO HIS SON. CM ATTEMPTED TO SEE PT WHO WAS OUT OF ROOM AT APPROXIMATELY 1345 HOURS. CM WILL SPEAK TO PT SOON POSSIBLE REGARDING [facility] IN [place] AND SEND REFERRALS IF PT WILL SIGN THE CONSENT. Brandin Garcia CASE MANAGEMENT DCP- Discharge Planning Updated by [id number]: Brandin Garcia on 04/21/19 11:[address] Patient Name: ABBY PHILLIPS Encounter No: [id number] : 1945 Primary Insurance: [facility] MEDICARE SOLUTIONS Anticipated DC Date: 04-21-2019 Planned Disposition: Left Against Medical Advice DCP follow-up note: CM SPOKE TO BEDSIDE NURSE WHO REPORTS PT'S SISTER, JORGE, CALLED AND STATES SHE WILL NOT BE PICKING PT UP FOR TRANSPORT HOME. CM MET WITH PT IN ROOM TO DISCUSS DISCHARGE PLANNING AND NEEDS. PT REPORTS STILL PLANNING TO LEAVE WHEN HE FINDS A RIDE. CM EXPLAINED THAT PT'S FAMILY MEMBERS ARE CALLING AND INFORMING HOSPITAL STAFF THEY ARE NOT PICKING UP PT. PT STATES HE HAS FRIENDS THAT ARE GOING TO HELP. CM PROVIDED PT WITH MEDICARE WEBSITE RESULTS FOR [facility] REHABS WITHIN 50 MILES OF HIS HOME. CM EXPLAINED THAT [facility] WILL NOT ACCEPT PT BACK AND THAT IF PT CHANGES HIS MIND AND DECIDES TO GO TO REHAB, CM WILL NEED PT'S TOP TWO SELECTIONS AND SIGNATURE ON THE CHOICE FORM. IMPORTANT MESSAGE FROM MEDICARE PROVIDED AND EXPLAINED. PT ASKED CM TO CALL ADAM SANCHES, PHARMACIST AT [facility] TO HAVE HER , JOHN SANCHES, CALL PT. CM CALLED AND WAS ADVISED BY ADAM THAT AGUSTIN SPOKE TO PT YESTERDAY AND SHE WILL LET HER KNOW THAT PT WANTS TO TALK TO HIM AGAIN. CM STILL REFUSING JAIL FACLITY PLACEMENT. CM WAITING ON PT TO DEVELOP TRANSPORTATION HOME. IF TRANSPORTATION IS VERIFIED, CALL JEANN[facility] [phone], WILL HAS AGREED TO ARRANGE PORTABLE OXGYEN TO HOSPITAL FOR PT TO LEAVE HOSPITAL. CM TO CONTINUE TO FOLLOW AND ASSIST NEEDED. Facilities Engineer: Brandin Garcia DCP- Discharge Planning Updated by [id number]: Brandin Garcia on 04/21/19 8:[address] Patient Name: ABBY PHILLIPS Encounter No: [id number] : 1945 Primary Insurance: [facility] MEDICARE SOLUTIONS Anticipated DC Date: 04-21-2019 Planned Disposition: Left Against Medical Advice DCP follow-up note: CM SPOKE TO HERIBERTO SANCHES REGARDING PT'S DISCHARGE PLAN. TREATMENT TEAM CONCERNED THAT PT DOES NOT HAVE SAFE DISCHARGE PLAN. CM MET WITH HERIBERTO SANCHES WITH PT IN ROOM. PT INSISTS THAT HE WILL GO HOME, JOHN SANCHES, , WILL PICK HIM UP. PT REPORTS ALEXSANDRA LOPEZ, A FRIEND FROM [facility] WILL ASSIST WITH CARING FOR PT IN HOME AND ASSIST WITH GETTING TO AND FROM DIALYSIS. PT REPORTS HE NORMALLY DRIVES HIMSELF TO AND FROM DIALYSIS AND IS ABLE TO TRANSFER HIMSELF TO A WHEELCHAIR, GET TO HIS CAR, GET THE WHEELCHAIR INTO THE TRUCK OF THE CAR AND THEN WALK TO AND GET INTO THE DRIVERS SEAT HOLDING ON TO THE CAR. PT REPORTS HAVING ELECTRIC AND MANUAL WHEELCHAIR AND IS ABLE TO TRANSFER HIMSELF FROM BED TO CHAIR AND CHAIR TO BED. PT DOES NOT KNOW THE NUMBER TO HIS FRIEND ALEXSANDRA, TO VERIFY HE WILL ASSIST AFTER DISCHARGE. PT REPORTS HIS SISTER HANDY LIVES IN HIS HOUSE AND HAS FOR FOUR MONTHS. CM ADVISED THAT FAMILY INFORMED STAFF HERE THAT PT NEEDS NURSING REHAB. PT REPORTS THAT HIS FAMILY IS WANTING TO KEEP HIM AWAY AND IN THE HALF-WAY. HERIBERTO SANCHES ADVISED THAT PT MUST HAVE A SAFE AND VERIFIABLE PLAN TO DISCHARGE HOME. CM ATTEMPTED TO CALL JOHN SANCHES, ; THERE WAS NO ANSWER AND NO MESSAGE MACHINE. CM CALLED [facility], , SPOKE TO [employer]ANCE IMAGING DIRECTOR RAYNE WHO INFORMED CM THAT THEY CAN DELIVER PORTABLE OXYGEN TO PT'S ROOM FOR DISCHARGE IF NEEDED. CM SPOKE TO PT IN ROOM, HERIBERTO VERÓNICA WAS IN ROOM SPEAKING TO PT. PT STATES HE IS LEAVING "AMA". HERIBERTO SANCHES INFORMED PT THAT PT MUST HAVE A PERSON TO VERIFY THEY ARE TRANSPORTING PRIOR TO ANY AMA FORMS BEING PRESENTED. CM ADVISED PT IF HE IS ABLE TO VERIFY TRANSPORATATION BY CM SPEAKING TO THAT PERSON AND THEY AGREE TO PROGRAM EVALUATOR PT, CM WILL ASK [facility] TO DELIVER PORTABLE OXYGEN TO ROOM. CM ASKED THAT IF PT CHANGES HIS MIND AND DECIDES TO GO TO JAIL REHAB, TO PLEASE NOTIFY CM AND CM WILL BE GLAD TO ASSIST WITH PLACEMENT. PT DECLINED. CM WAITING ON PT TO DEVELOP TRANSPORTATION HOME. IF TRANSPORTATION IS VERIFIED, CALL JEANNIE, , WILL HAS AGREED TO ARRANGE PORTABLE OXGYEN TO HOSPITAL FOR PT TO LEAVE HOSPITAL. CM TO CONTINUE TO FOLLOW AND ASSIST NEEDED. Facilities Engineer: Brandin Gracia DCP- Discharge Planning Updated by [id number]: Brandin Garcia on 04/20/19 1:[address] Patient Name: ABBY PHILLIPS Encounter No: [id number] : 1945 Primary Insurance: [facility] MEDICARE SOLUTIONS Anticipated DC Date: 04-19-2019 Planned Disposition: Home DCP follow-up note: CM MET WITH PT IN ROOM AND ENCOURAGED PT TO GO TO REHAB PRIOR TO DISCHARGE HOME. PT CONTINUES TO REFUSE AND REPORTS HIS SISTER WILL PICK HIM UP FOR DISCHARGE HOME. PT STATES HE MAY NEED OXYGEN FROM [facility] AGAIN TO GO HOME. HARSHAL EXPLAINED THAT IF HIS SISTER IS PICKING HIM UP AND SHE IS STAYING WITH PT IN PT'S HOME, SHE SHOULD BRING OXYGEN WITH HER. PT WILL REQUEST HIS SISTER BRING OXYGEN WITH HER. HARSHAL RECEIVED CALL FROM MIRIAM GORDON, , WHO INFORMED CM THAT PT HAS BEEN CALLING STATING HE IS GOING TO BE DISCHARGED TODAY AND NEEDS A RIDE HOME. JORGE STATES PT NEEDS TO GO BACK TO NURSING FACILITY FOR REHAB AND NOT HOME. HARSHAL EXPLAINED THAT CM CANNOT MAKE PT DO SOMETHING AGAINST PT'S WILL AND THAT IF PT IS NOT DEEMED INCOMPETENT BY A PHYSICIAN OR COURT, PT CAN MAKE BAD DECISIONS FOR HIMSELF. HARSHAL EXPLAINED HOW TO FILE FOR GUARDIANSHIP OF A PERSON AND THAT THIS WOULD HAVE TO BE GRANTED FOR ANYONE TO MAKE PT DO SOMETHING AGAINST HIS WILL. JORGE REPORTS UNDERSTANDING. PT PLANS TO DISCHARGE HOME WITH HIS SISTER, PT REPORTS HIS SISTER WILL PICK HIM UP FOR DISCHARGE HOME. PT DECLINES HALF-WAY, JAIL OR REHAB PLACEMENT. PATIENT IS NOT APPROPRIATE FOR HOME HEALTH PER [facility]. Facilities Engineer: Brandin Garcia DCP- Discharge Planning Updated by [id number]: Brandin Garcia on 04/19/19 3:[address] Patient Name: ABBY PHILLIPS Admission Status: ER Accout number: [id number] Admission Date: 04-19-2019 : 1945 Admission Diagnosis: Attending: SAMUEL COOPER Current LOS: 1 Anticipated DC Date: 04-19-2019 Planned Disposition: Home Primary Insurance: [facility] MEDICARE SOLUTIONS Discharge Planning Comments: CM MET WITH PT IN ROOM TO DISCUSS DISCHARGE PLANNING AND NEEDS. PT REPORTS LIVING AT HOME DEPENDENTLY WITH HIS SISTER HANDY WHO IS STAYING WITH PT IN PT'S HOME TO CARE FOR PT. . PT HAS [employer] WHEELCHAIR WELL HOME AND PORTABLE OXYGEN FROM [facility] [employer]. PT HAS NO OUTSIDE SERVICES ASSISTING IN THE HOME [facility] DECLINED TO ADMIT HIM AND TOLD HIM HE HAS TO BE DOING BETTER FOR HOME HEALTH SERVICES. CM DISCUSSED AVAILABILITY OF HOME HEALTH, REHAB SERVICES AND MEDICAL EQUIPMENT. PT DECLINED HALF-WAY OR REHAB PLACEMENT. PT DENIES DISCHARGE NEEDS, REPORTS HIS SISTER HANDY WILL PICK HIM UP FOR DISCHARGE HOME. PT REPORTS MISSING DIALYSIS BECAUSE HE WENT ON THURSDAY AND THEY DID NOT HAVE A SLING TO USE ON THE LIFT TO PICK HIM UP AT THE DIALYSIS UNIT. PT STATES HE HAS A SLING AT HOME AND FORGOT ABOUT IT. PT REPORTS HIS SISTER USES THE [employer] LIFT TO GET HIM TO THE WHEELCHAIR AND THEY WILL LEAVE THE SLING UNDER HIM FOR DIALYSIS TO USE FROM NOW ON. CHOICE SIGNED FOR [facility] TO VERIFY WITH THEM THAT THEY WILL NOT SEE PT. CM CALLED [facility], , LEFT MESSAGE ASKING FOR THE NURSE TO CALL CM BACK. PT PLANS TO DISCHARGE HOME WITH HIS SISTER, PT REPORTS HIS SISTER WILL PICK HIM UP FOR DISCHARGE HOME. PT DECLINES HALF-WAY, JAIL OR REHAB PLACEMENT. Facilities Engineer: Brandin Garcia Appended by Brandin Garcia on 04/19/2019 16:56 CDT: CM RECEIVED CALL FROM JERICA OF [facility] WHO INFORMED CM THAT THEY DID GO FOR THE HOME HEALTH ADMIT AND INFORMED PT AND FAMILY THAT PT NEEDS REHAB AND IS NOT APPROPRIATE FOR HOME HEALTH SERVICES AT THIS TIME. PT PLANS TO DISCHARGE HOME WITH HIS SISTER, PT REPORTS HIS SISTER WILL PICK HIM UP FOR DISCHARGE HOME. PT DECLINES HALF-WAY, JAIL OR REHAB PLACEMENT. Facilities Engineer: Brandin Garcia DCPIA - Discharge Planning Initial Assessment Updated by [id number]: Brandin Garcia on 04/22/19 11:13 am * Is the patient Alert and Oriented? Yes * How many steps to enter\\exit or inside your home? NONE * PCP DR. ARACELI SIDHU * Pharmacy [facility] * Preadmission Environment Home with Family * ADLs Partial Dependent * Partial ADLs (Assistance needed) Ambulation Bathing Dressing Medication Management Toileting Transfers * Equipment [employer] Lift Oxygen Wheelchair * Other Equipment HOME AND PORTABLE OXYGEN, [facility] * List name and contact numbers for known caregivers / representatives who currently or will assist patient after discharge: HANDY JONES, SISTER [phone] JORGE GORDON, SISTER, CHARLEY PHILLIPS, SON, * Verbal permission to speak to the caregivers and representatives has been obtained from the patient. Yes * Community resources currently utilized None * Please name any agencies selected above. PT HAD INTAKE WITH [facility] FROM [facility], ACCORDING TO PT, THEY DECLINED T PROVIDE SERVICES UNTIL HE WAS "DOING BETTER" OUTPATIENT DIALYSIS , [facility], [facility], [facility]. PT REPORTS HE HAS BEEN DRIVING HIMSELF. * Additional services required to return to the preadmission environment? No * Can the patient safely return to the preadmission environment? Yes * Has this patient been hospitalized within the prior 30 days at any hospital? Yes Coverage Notice Reviewer: [id number] - Deborah Carbon Notice Issued Date-Time: 04/19/2019 9:30 Notice Type: Medicare Outpatient Observation Notice Notice Delivered To: Patient Relationship to Patient: Self Manager System Name: Delivery Method: HAND - Hand Delivered Anusha Days: Prior Verbal Notification: Recipient Understood Notice: Yes Recipient Signature: Yes Med Rec Note Co-signed by Attending: Coverage Notice Comment: Reviewer: [id number] Skylar Garcia Notice Issued Date-Time: 04/19/2019 12:15 Notice Type: Patient Choice Letter Notice Delivered To: Patient Relationship to Patient: Manager System Name: Delivery Method: HAND - Hand Delivered Anusha Days: Prior Verbal Notification: Recipient Understood Notice: Yes Recipient Signature: Yes Med Rec Note Co-signed by Attending: Coverage Notice Comment: [facility] Reviewer: [id number] Skylar Garcia Notice Issued Date-Time: 04/21/2019 11:45 Notice Type: IM Discharge Notice Notice Delivered To: Patient Relationship to Patient: Manager System Name: Delivery Method: HAND - Hand Delivered Anusha Days: Prior Verbal Notification: Recipient Understood Notice: Yes Recipient Signature: Yes Med Rec Note Co-signed by Attending: Coverage Notice Comment: Reviewer: [id number] Garcia Notice Issued Date-Time: 04/22/2019 16:05 Notice Type: Patient Choice Letter Notice Delivered To: Patient Relationship to Patient: Manager System Name: Delivery Method: HAND - Hand Delivered Anusah Days: Prior Verbal Notification: Recipient Understood Notice: Yes Recipient Signature: Yes Med Rec Note Co-signed by Attending: Coverage Notice Comment: [facility]. Last DP export: 04/22/19 10:17 Patient Name: ABBY PHILLIPS Page [id number] at 0857 All edits/amendments must be made on the electronic document DICTATION DATE: 04/25/19856 DIRECTOR VIDEO: APRIL 04/25/19856 RPT#: [id number] DC DATE: STATUS: ADM IN [facility] [address] [place] [address] END OF REPORT
[2019-04-25 09:13] VITALS: BP 163/57
--- NOTE | 2019-04-25 09:43 | NUR ---
PATIENT IS REFUSING LABS, REFUSED CHEST X RAY, AND JUST REFUSED TO TAKE HIS PO MEDICATIONS THIS MORNING.
[2019-04-25 10:22] LABS: HEMATOCRIT 31.6 % (42.0-54.0); HEMOGLOBIN 9.8 g/dL (13.5-17.5); MCH 26.1 pg (26.0-34.0); MCV 84.3 fL (80.0-100.0); PLATELET COUNT 284 10x3/uL (130-400); RBC 3.75 10x6/uL (4.20-6.10); RDW 17.2 % (11.5-14.5); WBC 21.1 10x3/uL (4.8-10.8)
[2019-04-25 10:38] LABS: EOSINOPHILS 1 % (0-7); LYMPHOCYTES 20 % (15-50); MONOCYTES 9 % (2-11); NEUTROPHILS 65 % (40-80); PLATELET ESTIMATE NORMAL
--- NOTE | 2019-04-25 10:39 | NUR ---
PATIENT TOOK HIS MEDS AND NOW WANTS TO GET HIS XRAY.
--- NOTE | 2019-04-25 10:41 | NUR ---
CALLED [facility], AND THEY SAID THEY WILL TRY AGAIN SOON POSSIBLE.
[2019-04-25 12:17] VITALS: BP 157/49
--- NOTE | 2019-04-25 14:13 | MORECARE ---
CASE MANAGEMENT DISCHARGE SUMMARY PATIENT: ABBY PHILLIPS UNIT: [id number] ADM DATE: 04/19/19 AGE: 73 : [birth year] SEX: M ROOM/BED: D.7764 AUTHOR: BYRON,DOC PHYSICIAN: REFERRING PHYSICIAN: SAMUEL COOPER MD DATE OF SERVICE: 04/25/19 Discharge Plan Patient Name: ABBY PHILLIPS Facility: [facility]:Melvin : 1945 Planned Disposition: Usp Facility Anticipated Discharge Date: 04/21/19 Discharge Date: Expected LOS: 2 Initial Reviewer: [id number] Initial Review Date: 04/18/2019 Generated: 04/25/19 3:13 pm Comments DCP- Discharge Planning Updated by [id number]: Brandin Garcia on 04/25/19 1:[address] Patient Name: ABBY PHILLIPS Encounter No: [id number] : 1945 Primary Insurance: [facility] MEDICARE SOLUTIONS Anticipated DC Date: 04-21-2019 Planned Disposition: Usp Facility External Planned Provider: [facility] IN [place], MEDICARE REHAB BED DCP follow-up note: CM RECEIVED CALL FROM CHARLEY PHILLIPS, PT'S SON, WHO ASKED WHAT IS TAKING SO LONG TO GET PT INTO REHAB IN [place]. CM EXPLAINED PLACEMENT PROCESS, INSURANCE APPROVAL TIME FRAME AND ALSO THE PROCESS OF HAVING TO GET ACCEPTING DIALYSIS UNIT IF CM CAN GET FACILITY TO ACCEPT PT. CHARLEY REPORTS UNDERSTANDING. CM CALLED [facility], , SPOKE TO SYD WHO INFORMED CM THAT SHE DID NOT GET THE REFERRAL. CM CONFIRMED FAX NUMBER, REVIEWED AND FOUND FAX CONFIRMATION FROM THURSDAY. CM FAXED REFERRAL AND UPDATE TO [facility] AT [phone]. CM SPOKE [facility] OF [facility], , SHE WILL CALL [facility] AND GET UPDATE SHE HAS NOT "HEARD A WORD". CM FAXED REFERRAL [facility] FOR THE [facility] TO [facility] AT [phone]. CM WAITING ADMISSION DETERMINATIONS FROM [facility] AND [facility]. Brandin Garcia, CASE MANAGEMENT DCP- Discharge Planning Updated by [id number]: Brandin Garcia on 04/22/19 10:[address] Patient Name: ABBY PHILLIPS Encounter No: [id number] : 1945 Primary Insurance: [facility] MEDICARE SOLUTIONS Anticipated DC Date: 04-21-2019 Planned Disposition: Usp Facility External Planned Provider: [facility] IN [place], MEDICARE REHAB BED DCP follow-up note: CM SPOKE TO PT IN ROOM REGARDING DISCHARGE PLANNING. PT WILL GO TO REHAB IN [place] SO HE WILL BE CLOSE TO HIS SON. PT ASKED CM TO HURRY UP HE IS TIRED OF BEING IN THE HOSPITAL. CM EXPLAINED TO PT THAT IF HE WOULD HAVE DECIDED SOONER, CM WOULD HAVE ALREADY BEEN WORKING ON REHAB PLACEMENT. PT SIGNED CONSENT FOR [facility] SUGGESTED BY HIS SON AND FOR ANY GROUP HOME REHAB IN [place]. CM EXPLAINED TO PT THAT HIS INSURANCE MAY TAKE SEVERAL DAYS TO APPROVE OR DECLINE REHAB SERVICES AND THAT CM WILL HAVE TO FIND A FACILITY THAT WILL TRANSPORT TO DIALYSIS AND IF ALL OF THAT IS DONE, CM WILL HAVE TO REQUEST A NEW DIALYSIS UNIT. PT REPORTS UNDERSTANDING. CM CALLED [facility], , SPOKE TO KAVIN WHO WILL SCREEN FOR ADMISSION. CM FAXED REFERRAL TO [facility] AT [phone]. CM NOTIFIED PRASHANTH OF THE [facility], , OF REFERRAL. CM FAXED REFERRAL FOR THE [facility] TO [facility] AT [phone]. CM WAITING ADMISSION DETERMINATIONS FROM [facility] AND [facility]. Brandin Garcia, CASE MANAGEMENT DCP- Discharge Planning Updated by [id number]: Brandin Garcia on 04/21/19 4:[address] Patient Name: ABBY PHILLIPS Encounter No: [id number] : 1945 Primary Insurance: [facility] MEDICARE SOLUTIONS Anticipated DC Date: 04-21-2019 Planned Disposition: [facility]sp Facility External Planned Provider: [facility] OR OTHER GROUP HOME IN [place] DCP follow-up note: CM RECEIVED CALL FROM CHARLEY PHILLIPS, PT'S SON, WHO REPORTS THAT HE HAS TALKED TO PT VIA PHONE AND PT IS NOW AGREEING TO GO TO GROUP HOME REHAB IN [place], CLOSE TO HIS SON. CM ATTEMPTED TO SEE PT WHO WAS OUT OF ROOM AT APPROXIMATELY 1345 HOURS. CM WILL SPEAK TO PT SOON POSSIBLE REGARDING GROUP HOME REHAB IN [place] AND SEND REFERRALS IF PT WILL SIGN THE CONSENT. Brandin Garcia, CASE MANAGEMENT DCP- Discharge Planning Updated by [id number]: Brandin Garcia on 04/21/19 11:[address] Patient Name: ABBY PHILLIPS Encounter No: [id number] : 1945 Primary Insurance: [facility] MEDICARE SOLUTIONS Anticipated DC Date: 04-21-2019 Planned Disposition: Left Against Medical Advice DCP follow-up note: CM SPOKE TO BEDSIDE NURSE WHO REPORTS PT'S SISTER, JORGE, CALLED AND STATES SHE WILL NOT BE PICKING PT UP FOR TRANSPORT HOME. CM MET WITH PT IN ROOM TO DISCUSS DISCHARGE PLANNING AND NEEDS. PT REPORTS STILL PLANNING TO LEAVE WHEN HE FINDS A RIDE. CM EXPLAINED THAT PT'S FAMILY MEMBERS ARE CALLING AND INFORMING HOSPITAL STAFF THEY ARE NOT PICKING UP PT. PT STATES HE HAS FRIENDS THAT ARE GOING TO HELP. CM PROVIDED PT WITH MEDICARE WEBSITE RESULTS FOR GROUP HOME REHABS WITHIN 50 MILES OF HIS HOME. CM EXPLAINED THAT [facility] WILL NOT ACCEPT PT BACK AND THAT IF PT CHANGES HIS MIND AND DECIDES TO GO TO REHAB, CM WILL NEED PT'S TOP TWO SELECTIONS AND SIGNATURE ON THE CHOICE FORM. IMPORTANT MESSAGE FROM MEDICARE PROVIDED AND EXPLAINED. PT ASKED CM TO CALL ADAM SANCHES, PHARMACIST AT [facility] TO HAVE HER , JOHN SANCHES, CALL PT. CM CALLED AND WAS ADVISED BY ADAM THAT AGUSTIN SPOKE TO PT YESTERDAY AND SHE WILL LET HER KNOW THAT PT WANTS TO TALK TO HIM AGAIN. CM STILL REFUSING GROUP HOME FACLITY PLACEMENT. CM WAITING ON PT TO DEVELOP TRANSPORTATION HOME. IF TRANSPORTATION IS VERIFIED, CALL [facility], , WILL HAS AGREED TO ARRANGE PORTABLE OXGYEN TO HOSPITAL FOR PT TO LEAVE HOSPITAL. CM TO CONTINUE TO FOLLOW AND ASSIST NEEDED. Public Services Assistant: Brandin Garcia DCP- Discharge Planning Updated by [id number]: Brandin Garcia on 04/21/19 8:[address] Patient Name: ABBY PHILLIPS Encounter No: [id number] : 1945 Primary Insurance: [facility] MEDICARE SOLUTIONS Anticipated DC Date: 04-21-2019 Planned Disposition: Left Against Medical Advice DCP follow-up note: HARSHAL SPOKE TO HERIBERTO SANCHES REGARDING PT'S DISCHARGE PLAN. TREATMENT TEAM CONCERNED THAT PT DOES NOT HAVE SAFE DISCHARGE PLAN. CM MET WITH HERIBERTO SANCHES WITH PT IN ROOM. PT INSISTS THAT HE WILL GO HOME, JOHN SANCHES, , WILL PICK HIM UP. PT REPORTS ALEXSANDRA LOPEZ, A FRIEND FROM [place] WILL ASSIST WITH CARING FOR PT IN HOME AND ASSIST WITH GETTING TO AND FROM DIALYSIS. PT REPORTS HE NORMALLY DRIVES HIMSELF TO AND FROM DIALYSIS AND IS ABLE TO TRANSFER HIMSELF TO A WHEELCHAIR, GET TO HIS CAR, GET THE WHEELCHAIR INTO THE TRUCK OF THE CAR AND THEN WALK TO AND GET INTO THE DRIVERS SEAT HOLDING ON TO THE CAR. PT REPORTS HAVING ELECTRIC AND MANUAL WHEELCHAIR AND IS ABLE TO TRANSFER HIMSELF FROM BED TO CHAIR AND CHAIR TO BED. PT DOES NOT KNOW THE NUMBER TO HIS FRIEND ALEXSANDRA, TO VERIFY HE WILL ASSIST AFTER DISCHARGE. PT REPORTS HIS SISTER HANDY LIVES IN HIS HOUSE AND HAS FOR FOUR MONTHS. CM ADVISED THAT FAMILY INFORMED STAFF HERE THAT PT NEEDS NURSING REHAB. PT REPORTS THAT HIS FAMILY IS WANTING TO KEEP HIM AWAY AND IN THE SENIOR LIVING. HERIBERTO SANCHES ADVISED THAT PT MUST HAVE A SAFE AND VERIFIABLE PLAN TO DISCHARGE HOME. CM ATTEMPTED TO CALL JOHN SANCHES, ; THERE WAS NO ANSWER AND NO MESSAGE MACHINE. CM CALLED [facility], , SPOKE TO SENIOR INTERACTION DESIGNER WILL WHO INFORMED CM THAT THEY CAN DELIVER PORTABLE OXYGEN TO PT'S ROOM FOR DISCHARGE IF NEEDED. HARSHAL SPOKE TO PT IN ROOM, HERIBERTO SANCHES WAS IN ROOM SPEAKING TO PT. PT STATES HE IS LEAVING "AMA". HERIBERTO SANCHES INFORMED PT THAT PT MUST HAVE A PERSON TO VERIFY THEY ARE TRANSPORTING PRIOR TO ANY AMA FORMS BEING PRESENTED. CM ADVISED PT IF HE IS ABLE TO VERIFY TRANSPORATATION BY CM SPEAKING TO THAT PERSON AND THEY AGREE TO HAMMER SHOP SUPERVISOR PT, CM WILL ASK [facility] TO DELIVER PORTABLE OXYGEN TO ROOM. CM ASKED THAT IF PT CHANGES HIS MIND AND DECIDES TO GO TO GROUP HOME REHAB, TO PLEASE NOTIFY CM AND CM WILL BE GLAD TO ASSIST WITH PLACEMENT. PT DECLINED. CM WAITING ON PT TO DEVELOP TRANSPORTATION HOME. IF TRANSPORTATION IS VERIFIED, CALL [facility], , WILL HAS AGREED TO ARRANGE PORTABLE OXGYEN TO HOSPITAL FOR PT TO LEAVE HOSPITAL. CM TO CONTINUE TO FOLLOW AND ASSIST NEEDED. Public Services Assistant: Brandin Garcia DCP- Discharge Planning Updated by [id number]: Brandin Garcia on 04/20/19 1:[address] Patient Name: ABBY PHILLIPS Encounter No: [id number] : 1945 Primary Insurance: [employer] MEDICARE SOLUTIONS Anticipated DC Date: 04-19-2019 Planned Disposition: Home DCP follow-up note: CM MET WITH PT IN ROOM AND ENCOURAGED PT TO GO TO REHAB PRIOR TO DISCHARGE HOME. PT CONTINUES TO REFUSE AND REPORTS HIS SISTER WILL PICK HIM UP FOR DISCHARGE HOME. PT STATES HE MAY NEED OXYGEN FROM [facility] AGAIN TO GO HOME. CM EXPLAINED THAT IF HIS SISTER IS PICKING HIM UP AND SHE IS STAYING WITH PT IN PT'S HOME, SHE SHOULD BRING OXYGEN WITH HER. PT WILL REQUEST HIS SISTER BRING OXYGEN WITH HER. CM RECEIVED CALL FROM MIRIAM GORDON, , WHO INFORMED CM THAT PT HAS BEEN CALLING STATING HE IS GOING TO BE DISCHARGED TODAY AND NEEDS A RIDE HOME. JORGE STATES PT NEEDS TO GO BACK TO NURSING FACILITY FOR REHAB AND NOT HOME. CM EXPLAINED THAT CM CANNOT MAKE PT DO SOMETHING AGAINST PT'S WILL AND THAT IF PT IS NOT DEEMED INCOMPETENT BY A PHYSICIAN OR COURT, PT CAN MAKE BAD DECISIONS FOR HIMSELF. CM EXPLAINED HOW TO FILE FOR GUARDIANSHIP OF A PERSON AND THAT THIS WOULD HAVE TO BE GRANTED FOR ANYONE TO MAKE PT DO SOMETHING AGAINST HIS WILL. JORGE REPORTS UNDERSTANDING. PT PLANS TO DISCHARGE HOME WITH HIS SISTER, PT REPORTS HIS SISTER WILL PICK HIM UP FOR DISCHARGE HOME. PT DECLINES SENIOR LIVING, GROUP HOME OR REHAB PLACEMENT. PATIENT IS NOT APPROPRIATE FOR HOME HEALTH PER [facility]. Public Services Assistant: Brandin Garcia DCP- Discharge Planning Updated by [id number]: Brandin Garcia on 04/19/19 3:[address] Patient Name: ABBY PHILLIPS Admission Status: ER Accout number: [id number] Admission Date: 04-19-2019 : 1945 Admission Diagnosis: Attending: SAMUEL COOPER Current LOS: 1 Anticipated DC Date: 04-19-2019 Planned Disposition: Home Primary Insurance: [facility] MEDICARE SOLUTIONS Discharge Planning Comments: CM MET WITH PT IN ROOM TO DISCUSS DISCHARGE PLANNING AND NEEDS. PT REPORTS LIVING AT HOME DEPENDENTLY WITH HIS SISTER HANDY WHO IS STAYING WITH PT IN PT'S HOME TO CARE FOR PT. . PT HAS [facility] LIFT AND WHEELCHAIR WELL HOME AND PORTABLE OXYGEN FROM [facility]. PT HAS NO OUTSIDE SERVICES ASSISTING IN THE HOME [facility] DECLINED TO ADMIT HIM AND TOLD HIM HE HAS TO BE DOING BETTER FOR HOME HEALTH SERVICES. CM DISCUSSED AVAILABILITY OF HOME HEALTH, REHAB SERVICES AND MEDICAL EQUIPMENT. PT DECLINED SENIOR LIVING OR REHAB PLACEMENT. PT DENIES DISCHARGE NEEDS, REPORTS HIS SISTER HANDY WILL PICK HIM UP FOR DISCHARGE HOME. PT REPORTS MISSING DIALYSIS BECAUSE HE WENT ON THURSDAY AND THEY DID NOT HAVE A SLING TO USE ON THE LIFT TO PICK HIM UP AT THE DIALYSIS UNIT. PT STATES HE HAS A SLING AT HOME AND FORGOT ABOUT IT. PT REPORTS HIS SISTER USES THE [employer] LIFT TO GET HIM TO THE WHEELCHAIR AND THEY WILL LEAVE THE SLING UNDER HIM FOR DIALYSIS TO USE FROM NOW ON. CHOICE SIGNED FOR [facility] TO VERIFY WITH THEM THAT THEY WILL NOT SEE PT. CM CALLED [facility], , LEFT MESSAGE ASKING FOR THE NURSE TO CALL CM BACK. PT PLANS TO DISCHARGE HOME WITH HIS SISTER, PT REPORTS HIS SISTER WILL PICK HIM UP FOR DISCHARGE HOME. PT DECLINES SENIOR LIVING, GROUP HOME OR REHAB PLACEMENT. Public Services Assistant: Brandin Garcia Appended by Brandin Garcia on 04/19/2019 16:56 CDT: CM RECEIVED CALL FROM JERICA OF [facility] WHO INFORMED CM THAT THEY DID GO FOR THE HOME HEALTH ADMIT AND INFORMED PT AND FAMILY THAT PT NEEDS REHAB AND IS NOT APPROPRIATE FOR HOME HEALTH SERVICES AT THIS TIME. PT PLANS TO DISCHARGE HOME WITH HIS SISTER, PT REPORTS HIS SISTER WILL PICK HIM UP FOR DISCHARGE HOME. PT DECLINES SENIOR LIVING, GROUP HOME OR REHAB PLACEMENT. Public Services Assistant: Brandin Garcia DCPIA - Discharge Planning Initial Assessment Updated by [id number]: Brandin Garcia on 04/22/19 11:13 am * Is the patient Alert and Oriented? Yes * How many steps to enter\\exit or inside your home? NONE * PCP DR. ARACELI SIDHU * [facility] * Preadmission Environment Home with Family * ADLs Partial Dependent * Partial ADLs (Assistance needed) Ambulation Bathing Dressing Medication Management Toileting Transfers * Equipment [facility] Lift Oxygen Wheelchair * Other Equipment HOME AND PORTABLE OXYGEN, [facility] * List name and contact numbers for known caregivers / representatives who currently or will assist patient after discharge: HANDY JONES, SISTER [phone] JORGE GORDON, SISTER, CHARLEY PHILLIPS, SON, * Verbal permission to speak to the caregivers and representatives has been obtained from the patient. Yes * Community resources currently utilized None * Please name any agencies selected above. PT HAD INTAKE WITH [facility] FROM [place], ACCORDING TO PT, THEY DECLINED T PROVIDE SERVICES UNTIL HE WAS "DOING BETTER" OUTPATIENT DIALYSIS , [facility], [facility], [facility]. PT REPORTS HE HAS BEEN DRIVING HIMSELF. * Additional services required to return to the preadmission environment? No * Can the patient safely return to the preadmission environment? Yes * Has this patient been hospitalized within the prior 30 days at any hospital? Yes Coverage Notice Reviewer: [id number] Skylar Augustin Notice Issued Date-Time: 04/19/2019 9:30 Notice Type: Medicare Outpatient Observation Notice Notice Delivered To: Patient Relationship to Patient: Self Direct Sales Representative Name: Delivery Method: HAND - Hand Delivered Anusha Days: Prior Verbal Notification: Recipient Understood Notice: Yes Recipient Signature: Yes Med Rec Note Co-signed by Attending: Coverage Notice Comment: Reviewer: [id number] Garcia Notice Issued Date-Time: 04/19/2019 12:15 Notice Type: Patient Choice Letter Notice Delivered To: Patient Relationship to Patient: Direct Sales Representative Name: Delivery Method: HAND - Hand Delivered Anusha Days: Prior Verbal Notification: Recipient Understood Notice: Yes Recipient Signature: Yes Med Rec Note Co-signed by Attending: Coverage Notice Comment: [employer] [facility] Reviewer: [id number] Skylar Garcia Notice Issued Date-Time: 04/21/2019 11:45 Notice Type: IM Discharge Notice Notice Delivered To: Patient Relationship to Patient: Direct Sales Representative Name: Delivery Method: HAND - Hand Delivered Anusha Days: Prior Verbal Notification: Recipient Understood Notice: Yes Recipient Signature: Yes Med Rec Note Co-signed by Attending: Coverage Notice Comment: Reviewer: [id number] Garcia Notice Issued Date-Time: 04/22/2019 16:05 Notice Type: Patient Choice Letter Notice Delivered To: Patient Relationship to Patient: Direct Sales Representative Name: Delivery Method: HAND - Hand Delivered Anusha Days: Prior Verbal Notification: Recipient Understood Notice: Yes Recipient Signature: Yes Med Rec Note Co-signed by Attending: Coverage Notice Comment: [facility]. Last DP export: 04/25/19 7:57 Patient Name: ABBY PHILLIPS Page [id number] at 1413 All edits/amendments must be made on the electronic document DICTATION DATE: 04/25/191412 MILK PICKUP TRUCK DRIVER: APRIL 04/25/191412 RPT#: [id number] DC DATE: STATUS: ADM IN [facility] [address] [place] [address] END OF REPORT
[2019-04-25 17:24] VITALS: BP 178/62
[2019-04-25 20:00] VITALS: BP 164/54
--- NOTE | 2019-04-25 23:00 | NUR ---
PT FENESTRATED GAUZE ABD DRESSING WAS FOUND IN BED. PT STATES HE HAD NO IDEA HOW IT CAME OFF.SITE CLEANED AND NEW FENESTRATED GAUZE DRESSING PLACED AND TAPED. PT VOICED THANKS.
[2019-04-26] VITALS: BP 178/61
--- NOTE | 2019-04-26 | NUR ---
PT BP 178/61. PO PRN 0.1MG CLONIDE GIVEN AT THIS TIME. WILL CTM.
--- NOTE | 2019-04-26 00:44 | NUR ---
PT C/O PAIN. KASSY LOMBARDI HELP ADMINISTER TYLENOL AT THIS TIME.
[2019-04-26 04:00] VITALS: BP 138/47
[2019-04-26 06:02] LABS: BASOPHILS 0.2 % (0-2); EOSINOPHILS 1.4 % (0-7); HEMATOCRIT 32.6 % (42.0-54.0); HEMOGLOBIN 9.9 g/dL (13.5-17.5); IMMATURE GRANULOCYTES 0.6 % (0-5); LYMPHOCYTES 17.4 % (15-50); MCH 25.6 pg (26.0-34.0); MCHC 30.4 g/dL (31.0-37.0); MCV 84.2 fL (80.0-100.0); MONOCYTES 10.1 % (2-11); NEUTROPHILS 70.3 % (40-80); PLATELET COUNT 239 10x3/uL (130-400); RBC 3.87 10x6/uL (4.20-6.10); RDW 17.9 % (11.5-14.5)
[2019-04-26 06:03] LABS: WBC 11.6 10x3/uL (4.8-10.8)
--- NOTE | 2019-04-26 07:37 | NUR ---
SLEEPING BUT AWAKENS EAISLY. O2 AT 2 L/M PER NC. LEFT ARM FISTULA NOTED. RIGHT CHEST HEMISPLIT. OLD PEG TUBE NOTED. SORE TO LEFT HEEL ANDMEPIPLEX TO BUTTOCKS. FINGERS ARE NECORITIC ON LEFT HAND TO THUMB AND FOREFINGER . PT IS BEDFAST. SR UP WITH CALL LIGHT IN REACH
[2019-04-26 09:29] VITALS: BP 156/54
--- NOTE | 2019-04-26 09:58 | MORECARE ---
CASE MANAGEMENT DISCHARGE SUMMARY PATIENT: ABBY PHILLIPS UNIT: [id number] ADM DATE: 04/19/19 AGE: 73 : [birth year] SEX: M ROOM/BED: D.4738 AUTHOR: BYRONDOC PHYSICIAN: REFERRING PHYSICIAN: SAMUEL COOPER MD DATE OF SERVICE: 04/26/19 Discharge Plan Patient Name: ABBY PHILLIPS Facility: [facility]:[place] : 1945 Planned Disposition: Penitentiary Facility Anticipated Discharge Date: 04/21/19 Discharge Date: Expected LOS: 2 Initial Reviewer: [id number] Initial Review Date: 04/18/2019 Generated: 04/26/19 10:58 am Comments DCP- Discharge Planning Updated by [id number]: Brandin Garcia on 04/26/19 8:[address] Patient Name: ABBY PHILLIPS Encounter No: [id number] : 1945 Primary Insurance: [facility] MEDICARE SOLUTIONS Anticipated DC Date: 04-21-2019 Planned Disposition: Penitentiary Facility External Planned Provider:[facility] IN [place], MEDICARE REHAB BED DCP follow-up note: CM FAXED REFERRALUPDATE TO [facility] AT [phone]. CM FAXED REFERRAL UDPATE FOR THE [facility] TO PRASHANTH AT [phone]. CM TO DISCUSS WITH REHAB TODAY THAT PT NEEDS TO HAVE DEMONSTRATED ABILITY TO SIT FOR THREE OR MORE HOURS IN CHAIR FOR OUTPATIENT DIALYSIS. CM WAITING ADMISSION DETERMINATIONS FROM [facility] AND [facility]. Brandin Garcia CASE ROXANNA DCP- Discharge Planning Updated by [id number]: Brandin Garcia on 04/25/19 1:[address] Patient Name: ABBY PHILLIPS Encounter No: [id number] : 1945 Primary Insurance: [facility] MEDICARE SOLUTIONS Anticipated DC Date: 04-21-2019 Planned Disposition: Penitentiary Facility External Planned Provider: [facility] IN [place], MEDICARE REHAB BED DCP follow-up note: CM RECEIVED CALL FROM CHARLEY PHILLIPS, PT'S SON, WHO ASKED WHAT IS TAKING SO LONG TO GET PT INTO REHAB IN [place]. CM EXPLAINED PLACEMENT PROCESS, INSURANCE APPROVAL TIME FRAME AND ALSO THE PROCESS OF HAVING TO GET ACCEPTING DIALYSIS UNIT IF CM CAN GET FACILITY TO ACCEPT PT. CHARLEY REPORTS UNDERSTANDING. CM CALLED [facility], , SPOKE TO SYD WHO INFORMED CM THAT SHE DID NOT GET THE REFERRAL. CM CONFIRMED FAX NUMBER, REVIEWED AND FOUND FAX CONFIRMATION FROM THURSDAY. CM FAXED REFERRAL AND UPDATE TO E[facility] AT [phone]. CM SPOKE PRASHANTH OF THE [facility], , SHE WILL CALL THE [facility] AND GET UPDATE SHE HAS NOT "HEARD A WORD". CM FAXED REFERRAL UDPATE FOR THE [facility] TO PRASHANTH AT [phone]. CM WAITING ADMISSION DETERMINATIONS FROM [facility] AND [facility]. Brandin Garcia, CASE MANAGEMENT DCP- Discharge Planning Updated by [id number]: Brandin Garcia on 04/22/19 10:[address] Patient Name: ABBY PHILLIPS Encounter No: [id number] : 1945 Primary Insurance: [facility] MEDICARE SOLUTIONS Anticipated DC Date: 04-21-2019 Planned Disposition: Penitentiary Facility External Planned Provider: [facility] IN [place], MEDICARE REHAB BED DCP follow-up note: CM SPOKE TO PT IN ROOM REGARDING DISCHARGE PLANNING. PT WILL GO TO REHAB IN [place] SO HE WILL BE CLOSE TO HIS SON. PT ASKED CM TO HURRY UP HE IS TIRED OF BEING IN THE HOSPITAL. CM EXPLAINED TO PT THAT IF HE WOULD HAVE DECIDED SOONER, CM WOULD HAVE ALREADY BEEN WORKING ON REHAB PLACEMENT. PT SIGNED CONSENT FOR [facility] SUGGESTED BY HIS SON AND FOR ANY [facility] IN [place]. CM EXPLAINED TO PT THAT HIS INSURANCE MAY TAKE SEVERAL DAYS TO APPROVE OR DECLINE REHAB SERVICES AND THAT CM WILL HAVE TO FIND A FACILITY THAT WILL TRANSPORT TO DIALYSIS AND IF ALL OF THAT IS DONE, CM WILL HAVE TO REQUEST A NEW DIALYSIS UNIT. PT REPORTS UNDERSTANDING. CM CALLED [facility], , SPOKE TO KAVIN WHO WILL SCREEN FOR ADMISSION. CM FAXED REFERRAL TO [facility] AT [phone]. CM NOTIFIED PRASHANTH OF THE [facility], , OF REFERRAL. CM FAXED REFERRAL FOR THE [facility] TO PRASHANTH AT [phone]. CM WAITING ADMISSION DETERMINATIONS FROM [facility] AND [facility]. Brandin Garcia, CASE MANAGEMENT DCP- Discharge Planning Updated by [id number]: Brandin Garcia on 04/21/19 4:[address] Patient Name: ABBY PHILLIPS Encounter No: [id number] : 1945 Primary Insurance: [facility] MEDICARE SOLUTIONS Anticipated DC Date: 04-21-2019 Planned Disposition: Penitentiary Facility External Planned Provider: [facility] OTHER [facility] IN [place] DCP follow-up note: CM RECEIVED CALL FROM CHARLEY PHILLIPS, PT'S SON, WHO REPORTS THAT HE HAS TALKED TO PT VIA PHONE AND PT IS NOW AGREEING TO GO TO [facility] IN [place], CLOSE TO HIS SON. CM ATTEMPTED TO SEE PT WHO WAS OUT OF ROOM AT APPROXIMATELY 1345 HOURS. CM WILL SPEAK TO PT SOON POSSIBLE REGARDING [facility] IN [place] AND SEND REFERRALS IF PT WILL SIGN THE CONSENT. Brandin Garcia, CASE MANAGEMENT DCP- Discharge Planning Updated by [id number]: Brandin Garcia on 04/21/19 11:[address] Patient Name: ABBY PHILLIPS Encounter No: [id number] : 1945 Primary Insurance: [facility] MEDICARE SOLUTIONS Anticipated DC Date: 04-21-2019 Planned Disposition: Left Against Medical Advice DCP follow-up note: CM SPOKE TO BEDSIDE NURSE WHO REPORTS PT'S SISTER, JORGE, CALLED AND STATES SHE WILL NOT BE PICKING PT UP FOR TRANSPORT HOME. CM MET WITH PT IN ROOM TO DISCUSS DISCHARGE PLANNING AND NEEDS. PT REPORTS STILL PLANNING TO LEAVE WHEN HE FINDS A RIDE. CM EXPLAINED THAT PT'S FAMILY MEMBERS ARE CALLING AND INFORMING HOSPITAL STAFF THEY ARE NOT PICKING UP PT. PT STATES HE HAS FRIENDS THAT ARE GOING TO HELP. CM PROVIDED PT WITH MEDICARE WEBSITE RESULTS FOR [facility] REHABS WITHIN 50 MILES OF HIS HOME. CM EXPLAINED THAT [facility] WILL NOT ACCEPT PT BACK AND THAT IF PT CHANGES HIS MIND AND DECIDES TO GO TO REHAB, CM WILL NEED PT'S TOP TWO SELECTIONS AND SIGNATURE ON THE CHOICE FORM. IMPORTANT MESSAGE FROM MEDICARE PROVIDED AND EXPLAINED. PT ASKED CM TO CALL ADAM SANCHES, PHARMACIST AT [facility] TO HAVE HER , JOHN SANCHES, CALL PT. CM CALLED AND WAS ADVISED BY ADAM THAT AGUSTIN SPOKE TO PT YESTERDAY AND SHE WILL LET HER KNOW THAT PT WANTS TO TALK TO HIM AGAIN. CM STILL REFUSING [facility] FACLITY PLACEMENT. CM WAITING ON PT TO DEVELOP TRANSPORTATION HOME. IF TRANSPORTATION IS VERIFIED, CALL [facility], , WILL HAS AGREED TO ARRANGE PORTABLE OXGYEN TO HOSPITAL FOR PT TO LEAVE HOSPITAL. CM TO CONTINUE TO FOLLOW AND ASSIST NEEDED. Assembly Member: Brandin Garcia DCP- Discharge Planning Updated by [id number]: Brandin Garcia on 04/21/19 8:[address] Patient Name: ABBY PHILLIPS Encounter No: [id number] : 1945 Primary Insurance: [facility] MEDICARE SOLUTIONS Anticipated DC Date: 04-21-2019 Planned Disposition: Left Against Medical Advice DCP follow-up note: CM SPOKE TO HERIBERTO SANCHES REGARDING PT'S DISCHARGE PLAN. TREATMENT TEAM CONCERNED THAT PT DOES NOT HAVE SAFE DISCHARGE PLAN. CM MET WITH HERIBERTO SANCHES WITH PT IN ROOM. PT INSISTS THAT HE WILL GO HOME, JOHN VERÓNICA, , WILL PICK HIM UP. PT REPORTS ALEXSANDRA LOPEZ, A FRIEND FROM [place] WILL ASSIST WITH CARING FOR PT IN HOME AND ASSIST WITH GETTING TO AND FROM DIALYSIS. PT REPORTS HE NORMALLY DRIVES HIMSELF TO AND FROM DIALYSIS AND IS ABLE TO TRANSFER HIMSELF TO A WHEELCHAIR, GET TO HIS CAR, GET THE WHEELCHAIR INTO THE TRUCK OF THE CAR AND THEN WALK TO AND GET INTO THE DRIVERS SEAT HOLDING ON TO THE CAR. PT REPORTS HAVING ELECTRIC AND MANUAL WHEELCHAIR AND IS ABLE TO TRANSFER HIMSELF FROM BED TO CHAIR AND CHAIR TO BED. PT DOES NOT KNOW THE NUMBER TO HIS FRIEND ALEXSANDRA, TO VERIFY HE WILL ASSIST AFTER DISCHARGE. PT REPORTS HIS SISTER HANDY LIVES IN HIS HOUSE AND HAS FOR FOUR MONTHS. CM ADVISED THAT FAMILY INFORMED STAFF HERE THAT PT NEEDS NURSING REHAB. PT REPORTS THAT HIS FAMILY IS WANTING TO KEEP HIM AWAY AND IN THE HALFWAY. HERIBERTO SANCHES ADVISED THAT PT MUST HAVE A SAFE AND VERIFIABLE PLAN TO DISCHARGE HOME. CM ATTEMPTED TO CALL JOHN SANCHES, ; THERE WAS NO ANSWER AND NO MESSAGE MACHINE. CM CALLED [facility], , SPOKE TO MIXING SUPERVISOR RAYNE WHO INFORMED CM THAT THEY CAN DELIVER PORTABLE OXYGEN TO PT'S ROOM FOR DISCHARGE IF NEEDED. HARSHAL SPOKE TO PT IN ROOM, HERIBERTO SANCHES WAS IN ROOM SPEAKING TO PT. PT STATES HE IS LEAVING "AMA". HERIBERTO VERÓNICA INFORMED PT THAT PT MUST HAVE A PERSON TO VERIFY THEY ARE TRANSPORTING PRIOR TO ANY AMA FORMS BEING PRESENTED. CM ADVISED PT IF HE IS ABLE TO VERIFY TRANSPORATATION BY CM SPEAKING TO THAT PERSON AND THEY AGREE TO AGENCY APPOINTMENTS SUPERVISOR PT, CM WILL ASK JE[facility] TO DELIVER PORTABLE OXYGEN TO ROOM. CM ASKED THAT IF PT CHANGES HIS MIND AND DECIDES TO GO TO [facility] REHAB, TO PLEASE NOTIFY CM AND CM WILL BE GLAD TO ASSIST WITH PLACEMENT. PT DECLINED. CM WAITING ON PT TO DEVELOP TRANSPORTATION HOME. IF TRANSPORTATION IS VERIFIED, CALL JEANNIE [phone], WILL HAS AGREED TO ARRANGE PORTABLE OXGYEN TO HOSPITAL FOR PT TO LEAVE HOSPITAL. CM TO CONTINUE TO FOLLOW AND ASSIST NEEDED. Assembly Member: Brandin Garcia DCP- Discharge Planning Updated by [id number]: Brandin Garcia on 04/20/19 1:[address] Patient Name: ABBY PHILLIPS Encounter No: [id number] : 1945 Primary Insurance: [facility] MEDICARE SOLUTIONS Anticipated DC Date: 04-19-2019 Planned Disposition: Home DCP follow-up note: HARSHAL MET WITH PT IN ROOM AND ENCOURAGED PT TO GO TO REHAB PRIOR TO DISCHARGE HOME. PT CONTINUES TO REFUSE AND REPORTS HIS SISTER WILL PICK HIM UP FOR DISCHARGE HOME. PT STATES HE MAY NEED OXYGEN FROM [facility] AGAIN TO GO HOME. HARSHAL EXPLAINED THAT IF HIS SISTER IS PICKING HIM UP AND SHE IS STAYING WITH PT IN PT'S HOME, SHE SHOULD BRING OXYGEN WITH HER. PT WILL REQUEST HIS SISTER BRING OXYGEN WITH HER. HARSHAL RECEIVED CALL FROM MIRIAM GORDON, , WHO INFORMED CM THAT PT HAS BEEN CALLING STATING HE IS GOING TO BE DISCHARGED TODAY AND NEEDS A RIDE HOME. JORGE STATES PT NEEDS TO GO BACK TO NURSING FACILITY FOR REHAB AND NOT HOME. HARSHAL EXPLAINED THAT CM CANNOT MAKE PT DO SOMETHING AGAINST PT'S WILL AND THAT IF PT IS NOT DEEMED INCOMPETENT BY A PHYSICIAN OR COURT, PT CAN MAKE BAD DECISIONS FOR HIMSELF. HARSHAL EXPLAINED HOW TO FILE FOR GUARDIANSHIP OF A PERSON AND THAT THIS WOULD HAVE TO BE GRANTED FOR ANYONE TO MAKE PT DO SOMETHING AGAINST HIS WILL. JORGE REPORTS UNDERSTANDING. PT PLANS TO DISCHARGE HOME WITH HIS SISTER, PT REPORTS HIS SISTER WILL PICK HIM UP FOR DISCHARGE HOME. PT DECLINES HALFWAY, CORRECTION OR REHAB PLACEMENT. PATIENT IS NOT APPROPRIATE FOR HOME HEALTH PER [facility]. Assembly Member: Brandin Garcia DCP- Discharge Planning Updated by [id number]: Brandin Garcia on 04/19/19 3:[address] Patient Name: ABBY PHILLIPS Admission Status: ER Accout number: [id number] Admission Date: 04-19-2019 : 1945 Admission Diagnosis: Attending: SAMUEL COOPER Current LOS: 1 Anticipated DC Date: 04-19-2019 Planned Disposition: Home Primary Insurance: [facility] MEDICARE SOLUTIONS Discharge Planning Comments: CM MET WITH PT IN ROOM TO DISCUSS DISCHARGE PLANNING AND NEEDS. PT REPORTS LIVING AT HOME DEPENDENTLY WITH HIS SISTER HANDY WHO IS STAYING WITH PT IN PT'S HOME TO CARE FOR PT. . PT HAS [facility] LIFT AND WHEELCHAIR WELL HOME AND PORTABLE OXYGEN FROM [facility]. PT HAS NO OUTSIDE SERVICES ASSISTING IN THE HOME [facility] DECLINED TO ADMIT HIM AND TOLD HIM HE HAS TO BE DOING BETTER FOR HOME HEALTH SERVICES. CM DISCUSSED AVAILABILITY OF HOME HEALTH, REHAB SERVICES AND MEDICAL EQUIPMENT. PT DECLINED HALFWAY OR REHAB PLACEMENT. PT DENIES DISCHARGE NEEDS, REPORTS HIS SISTER HANDY WILL PICK HIM UP FOR DISCHARGE HOME. PT REPORTS MISSING DIALYSIS BECAUSE HE WENT ON THURSDAY AND THEY DID NOT HAVE A SLING TO USE ON THE LIFT TO PICK HIM UP AT THE DIALYSIS UNIT. PT STATES HE HAS A SLING AT HOME AND FORGOT ABOUT IT. PT REPORTS HIS SISTER USES THE [employer] LIFT TO GET HIM TO THE WHEELCHAIR AND THEY WILL LEAVE THE SLING UNDER HIM FOR DIALYSIS TO USE FROM NOW ON. CHOICE SIGNED FOR [facility] ON LICENSE OF [facility] TO VERIFY WITH THEM THAT THEY WILL NOT SEE PT. CM CALLED [facility] ON LICENSE OF [facility], , LEFT MESSAGE ASKING FOR THE NURSE TO CALL CM BACK. PT PLANS TO DISCHARGE HOME WITH HIS SISTER, PT REPORTS HIS SISTER WILL PICK HIM UP FOR DISCHARGE HOME. PT DECLINES HALFWAY, CORRECTION OR REHAB PLACEMENT. Assembly Member: Brandin Garcia Appended by Brandin Garcia on 04/19/2019 16:56 CDT: CM RECEIVED CALL FROM JERICA OF [facility] ON LICENSE OF [facility] WHO INFORMED CM THAT THEY DID GO FOR THE HOME HEALTH ADMIT AND INFORMED PT AND FAMILY THAT PT NEEDS REHAB AND IS NOT APPROPRIATE FOR HOME HEALTH SERVICES AT THIS TIME. PT PLANS TO DISCHARGE HOME WITH HIS SISTER, PT REPORTS HIS SISTER WILL PICK HIM UP FOR DISCHARGE HOME. PT DECLINES HALFWAY, CORRECTION OR REHAB PLACEMENT. Assembly Member: Brandin Garcia DCPIA - Discharge Planning Initial Assessment Updated by [id number]: Brandin Garcia on 04/22/19 11:13 am * Is the patient Alert and Oriented? Yes * How many steps to enter\\exit or inside your home? NONE * PCP DR. ARACELI SIDHU * Pharmacy [facility] * Preadmission Environment Home with Family * ADLs Partial Dependent * Partial ADLs (Assistance needed) Ambulation Bathing Dressing Medication Management Toileting Transfers * Equipment Areli Lift Oxygen Wheelchair * Other Equipment HOME AND PORTABLE OXYGEN, [facility] * List name and contact numbers for known caregivers / representatives who currently or will assist patient after discharge: HANDY JONES, SISTER [phone] JORGE GORDON, SISTER, CHARLEY PHILLIPS, SON, * Verbal permission to speak to the caregivers and representatives has been obtained from the patient. Yes * Community resources currently utilized None * Please name any agencies selected above. PT HAD INTAKE WITH [facility] ON LICENSE OF [facility] FROM [place], ACCORDING TO PT, THEY DECLINED T PROVIDE SERVICES UNTIL HE WAS "DOING BETTER" OUTPATIENT DIALYSIS , [facility], [facility], [facility]. PT REPORTS HE HAS BEEN DRIVING HIMSELF. * Additional services required to return to the preadmission environment? No * Can the patient safely return to the preadmission environment? Yes * Has this patient been hospitalized within the prior 30 days at any hospital? Yes Coverage Notice Reviewer: [id number] Skylar Augustin Notice Issued Date-Time: 04/19/2019 9:30 Notice Type: Medicare Outpatient Observation Notice Notice Delivered To: Patient Relationship to Patient: Self Emergency Planner Name: Delivery Method: HAND - Hand Delivered Anusha Days: Prior Verbal Notification: Recipient Understood Notice: Yes Recipient Signature: Yes Med Rec Note Co-signed by Attending: Coverage Notice Comment: Reviewer: [id number] - Brandin Garcia Notice Issued Date-Time: 04/19/2019 12:15 Notice Type: Patient Choice Letter Notice Delivered To: Patient Relationship to Patient: Emergency Planner Name: Delivery Method: HAND - Hand Delivered Anusha Days: Prior Verbal Notification: Recipient Understood Notice: Yes Recipient Signature: Yes Med Rec Note Co-signed by Attending: Coverage Notice Comment: [facility] Reviewer: [id number] Skylar Garcia Notice Issued Date-Time: 04/21/2019 11:45 Notice Type: IM Discharge Notice Notice Delivered To: Patient Relationship to Patient: Emergency Planner Name: Delivery Method: HAND - Hand Delivered Anusha Days: Prior Verbal Notification: Recipient Understood Notice: Yes Recipient Signature: Yes Med Rec Note Co-signed by Attending: Coverage Notice Comment: Reviewer: [id number] Skylar Garcia Notice Issued Date-Time: 04/22/2019 16:05 Notice Type: Patient Choice Letter Notice Delivered To: Patient Relationship to Patient: Emergency Planner Name: Delivery Method: HAND - Hand Delivered Anusha Days: Prior Verbal Notification: Recipient Understood Notice: Yes Recipient Signature: Yes Med Rec Note Co-signed by Attending: Coverage Notice Comment: [facility]. Last DP export: 04/25/19 1:13 Patient Name: ABBY PHILLIPS Page [id number] at 0958 All edits/amendments must be made on the electronic document DICTATION DATE: 04/26/19957 FILM BOOKER: APRIL 04/26/19957 RPT#: [id number] DC DATE: STATUS: ADM IN [facility] [address] [place] [address] END OF REPORT
[2019-04-26 12:13] VITALS: BP 171/53
--- NOTE | 2019-04-26 13:53 | NUR ---
TO DIALYSIS PER BED
--- NOTE | 2019-04-26 15:50 | NUR ---
I have reviewed this patient and I concur with the Shift Assessment completed by the Licensed Practical Nurse today this shift.
--- NOTE | 2019-04-26 17:28 | NUR ---
PT BACK FROM [facility]YLSIS. V/S STABLE DENIES ANY NEEDS. SR UP WITH CALL LIGHT IN REACH. WILL MONITOR
--- NOTE | 2019-04-26 19:27 | NUR ---
BEDSIDE REPORT RECEIVED FROM DAY SHIFT, PT CARE ASSUMED. WROTE NAME ON BOARD, PT SITTING UP IN BED VISITING WITH [id number] AND GRANDSON, [id number]. DENIES ANY NEEDS AT THIS TIME. BED IN LOWEST POSITION, SR X2, CALL LIGHT WITHIN REACH. WILL CONTINUE TO MONITOR.
[2019-04-26 20:35] VITALS: BP 167/53
--- NOTE | 2019-04-26 21:16 | NUR ---
CALL RECEIVED FROM ER HAT CUTTER THAT PT CALLED AND STATED THAT HE WAS IN DISTRESS. ENTERED PT ROOM AND ASKED PT IF HE WAS OK. PT STATED "YES, I NEEDED SOME CRACKERS AND A SPRITE AND TO BE COVERED UP, IM COLD" PT DID NOT APPEAR TO BE IN DISTRESS. NO C/O PAIN.
--- NOTE | 2019-04-27 03:15 | NUR ---
PT C/O SOB, REQUESTING RESPIRATORY TX. RESPIRATORY CALLED.
[2019-04-27 04:30] VITALS: BP 161/48
[2019-04-27 07:05] LABS: BASOPHILS 0.1 % (0-2); HEMATOCRIT 28.9 % (42.0-54.0); HEMOGLOBIN 8.6 g/dL (13.5-17.5); IMMATURE GRANULOCYTES 0.7 % (0-5); LYMPHOCYTES 19.1 % (15-50); MCH 25.7 pg (26.0-34.0); MCHC 29.8 g/dL (31.0-37.0); MEAN PLATELET VOLUME 9.6 fL (7.4-10.4); MONOCYTES 11.6 % (2-11); NEUTROPHILS 67.5 % (40-80); RBC 3.34 10x6/uL (4.20-6.10); RDW 18.4 % (11.5-14.5); WBC 14.3 10x3/uL (4.8-10.8)
[2019-04-27 07:08] LABS: MCV 86.5 fL (80.0-100.0); PLATELET COUNT 367 10x3/uL (130-400)
--- NOTE | 2019-04-27 07:32 | NUR ---
LYING QUIETLY. ALERT AND ORIENTED. PT HAS A RIGHT CHEST HEMOSPLIT. RESERVE LEFT ARM WITH INMATURE FISTULA. PEG TUBE TO ABD. PT HAS 2 NACORTIC FINGERS ON THE RIGHT HAND. DENIES ANY NEEDS AT PRESENT TIME.
[2019-04-27 09:13] VITALS: BP 166/80
--- NOTE | 2019-04-27 12:02 | NUR ---
OT NOTE: PT DOING MUCH BETTER TODAY. PARTICIPATED WITH THERAPY; NO AGITATION NOTED ON THIS DATE. PERFORMED SIMPLE GROOMING WITH SET UP; ABLE TO MARINA SOCKS AND GOWN WITH MIN ASSIST. ABLE TO SIT UP ON EOB AND PERFORM UE/LE EXS WITH MIN REST BREAKS. GOOD SITTING BALANCE; TRANSFERRED FROM BED TO CHAIR WITH MIN ASSIST AND USE OF WALKER AND GAIT BELT. PATRICK GANDHI, OTR/L
--- NOTE | 2019-04-27 12:21 | MORECARE ---
CASE MANAGEMENT DISCHARGE SUMMARY PATIENT: ABBY PHILLIPS UNIT: [id number] ADM DATE: 04/19/19 AGE: 73 : [birth year] SEX: M ROOM/BED: D.2378 AUTHOR: BYRON,DOC PHYSICIAN: REFERRING PHYSICIAN: SAMUEL COOPER MD DATE OF SERVICE: 04/27/19 Discharge Plan Patient Name: ABBY PHILLIPS Facility: [facility]:[place] : 1945 Planned Disposition: [facility] Facility Anticipated Discharge Date: 04/21/19 Discharge Date: Expected LOS: 2 Initial Reviewer: [id number] Initial Review Date: 04/18/2019 Generated: 04/27/19 1:21 pm Comments DCP- Discharge Planning Updated by [id number]: Brandin Garcia on 04/27/19 11:[address] Patient Name: ABBY PHILLIPS Encounter No: [id number] : 1945 Primary Insurance: [facility] MEDIC[facility] SOLUTIONS Anticipated DC Date: 04-21-2019 Planned Disposition: [facility] Facility External Planned Provider: [facility] IN [place], MEDICARE REHAB BED DCP follow-up note: CM REVIEWED CHART, PT DID NOT PARTICIPATE WITH THERAPY ON 04-26-19. CM MET WITH PT IN ROOM TO DISCUSS DISCHARGE PLANNING AND NEEDS. PT DOES NOT WANT [facility]. PT INSISTS THAT HE WANTS REHAB SERVICES. CM EXPLAINED THAT PT HAS TO PARTICIPATE FULLY WITH THERAPY EACH TIME OFFERED INSURANCE WILL NOT PAY FOR REHAB SERVICES WITHOUT PARTICIPATION WITH OFFERED THERAPY. PT REPORTS UNDERSTANDING. PT PROMISES TO PARTICIPATE WITH THERAPY SERVICES AND UNDERSTANDS THAT HE MUST SIT UP IN [place] FOR THREE OR MORE HOURS TO SHOW HE CAN GO TO OUTPATIENT DIALYSIS. CM RECEIVED CALL FROM MATILDA OF [facility] WHO WILL FOLLOW, BUT WILL ONLY CONSIDER IF PT IS PARTICIPATING WITH THERAPY. CM [facility] [phone]. AND [facility] AT [phone], ONCE NEW THERAPY NOTES ARE DOCUMENTED ON 04-27. CM WAITING [facility] DET[facility]ATIONS [facility] AND [facility]. IF EITHER FACLITY WILL ACCEPT, CM WILL REQUEST CHANGE OF DIALYSIS UNIT. PT'S INSURANCE ALSO REQUIRES PRIOR AUTHORIZATION FOR REHAB PLACEMENT. Brandin Garcia, CASE MANAGEMENT DCP- Discharge Planning Updated by [id number]: Brandin Garcia on 04/26/19 8:[address] Patient Name: ABBY PHILLIPS Encounter No: [id number] : 1945 Primary Insurance: [facility] MEDICARE SOLUTIONS Anticipated DC Date: 04-21-2019 Planned Disposition: [facility] Facility External [facility] IN [place], MEDICARE REHAB BED DCP follow-up note: CM FAXED REFERRALUPDATE TO [facility] AT [phone]. CM FAXED REFERRAL UDPATE FOR [facility] TO [facility] AT [phone]. CM TO DISCUSS WITH REHAB TODAY THAT PT NEEDS TO HAVE DEMONSTRATED ABILITY TO SIT FOR THREE OR MORE HOURS IN CHAIR FOR OUTPATIENT DIALYSIS. CM WAITING ADMISSION DETERMINATIONS FROM [facility] AND [facility]. Brandin Garcia CASE MANAGEMENT DCP- Discharge Planning Updated by [id number]: Brandin Garcia on 04/25/19 1:[address] Patient Name: ABBY PHILLIPS Encounter No: [id number] : 1945 Primary Insurance: [facility] MEDICARE SOLUTIONS Anticipated DC Date: 04-21-2019 Planned Disposition: [facility] Facility External [facility] IN [place], MEDICARE REHAB BED DCP follow-up note: CM RECEIVED CALL FROM CHARLEY PHILLIPS, PT'S SON, WHO ASKED WHAT IS TAKING SO LONG TO GET PT INTO REHAB IN [place]. CM EXPLAINED PLACEMENT PROCESS, INSURANCE APPROVAL TIME FRAME AND ALSO THE PROCESS OF HAVING TO GET ACCEPTING DIALYSIS UNIT IF CM CAN GET FACILITY TO ACCEPT PT. CHARLEY REPORTS UNDERSTANDING. CM [facility], , SPOKE TO SDY WHO INFORMED CM THAT SHE DID NOT GET THE REFERRAL. CM CONFIRMED FAX NUMBER, REVIEWED AND FOUND FAX CONFIRMATION FROM THURSDAY. CM FAXED REFERRAL AND UPDATE TO [facility] AT [phone]. CM SPOKE PRASHANTH OF [facility], , SHE WILL CALL [facility] AND GET UPDATE SHE HAS NOT "HEARD A WORD". CM FAXED REFERRAL UDPATE FOR [facility] TO [facility] AT [phone]. CM WAITING ADMISSION DETERMINATIONS FROM [facility] AND [facility]. SELENA Escobedo MANAGEMENT DCP- Discharge Planning Updated by [id number]: Brandin Garcia on 04/22/19 10:[address] Patient Name: ABBY PHILLIPS Encounter No: [id number] : 1945 Primary Insurance: [facility] MEDIC[facility] SOLUTIONS Anticipated DC Date: 04-21-2019 Planned Disposition: [facility] Facility External Planned Provider: [facility] [place], MEDICARE REHAB BED DCP follow-up note: CM SPOKE TO PT IN ROOM REGARDING DISCHARGE PLANNING. PT WILL GO TO REHAB IN [place] SO HE WILL BE CLOSE TO HIS SON. PT ASKED CM TO HURRY UP HE IS TIRED OF BEING IN THE HOSPITAL. CM EXPLAINED TO PT THAT IF HE WOULD HAVE DECIDED SOONER, CM WOULD HAVE ALREADY BEEN WORKING ON REHAB PLACEMENT. PT SIGNED CONSENT FOR [facility] SUGGESTED BY HIS SON AND FOR ANY [facility] REH[facility] IN [place]. CM EXPLAINED TO PT THAT HIS INSURANCE MAY TAKE SEVERAL DAYS TO APPROVE OR DECLINE REHAB SERVICES AND THAT CM WILL HAVE TO FIND A FACILITY THAT WILL TRANSPORT TO DIALYSIS AND IF ALL OF THAT IS DONE, CM WILL HAVE TO REQUEST A NEW DIALYSIS UNIT. PT REPORTS UNDERSTANDING. CM CALLED [facility], , SPOKE TO KAVIN WHO WILL SCREEN FOR ADMISSION. CM FAXED REFERRAL TO [facility] AT [phone]. CM NOTIFIED PRASHANTH OF [facility], , OF REFERRAL. CM FAXED REFERRAL FOR [facility] TO [facility] AT [phone]. CM WAITING [facility] DET[facility]MINATIONS [facility] AND [facility]. Brandin Garcia, CASE MANAGEMENT DCP- Discharge Planning Updated by [id number]: Brandin Garcia on 04/21/19 4:[address] Patient Name: ABBY PHILLIPS Encounter No: [id number] : 1945 Primary Insurance: [facility] MEDIC[facility] SOLUTIONS Anticipated DC Date: 04-21-2019 Planned Disposition: [facility] Facility External Planned Provider: [facility] OTHER [facility] IN [place] DCP follow-up note: CM RECEIVED CALL FROM CHARLEY PHILLIPS, PT'S SON, WHO REPORTS THAT HE HAS TALKED TO PT VIA PHONE AND PT IS NOW AGREEING TO GO TO [facility] RE[facility] IN [place], CLOSE TO HIS SON. CM ATTEMPTED TO SEE PT WHO WAS OUT OF ROOM AT APPROXIMATELY 1345 HOURS. CM WILL SPEAK TO PT SOON POSSIBLE REGARDING [facility] IN [place] AND SEND REFERRALS IF PT WILL SIGN THE CONSENT. Brandin Garcia, CASE MANAGEMENT DCP- Discharge Planning Updated by [id number]: Brandin Garcia on 04/21/19 11:[address] Patient Name: ABBY PHILLIPS Encounter No: [id number] : 1945 Primary Insurance: [facility] MEDICARE SOLUTIONS Anticipated DC Date: 04-21-2019 Planned Disposition: Left Against Medical Advice DCP follow-up note: CM SPOKE TO BEDSIDE NURSE WHO REPORTS PT'S SISTER, JORGE, CALLED AND STATES SHE WILL NOT BE PICKING PT UP FOR TRANSPORT HOME. CM MET WITH PT IN ROOM TO DISCUSS DISCHARGE PLANNING AND NEEDS. PT REPORTS STILL PLANNING TO LEAVE WHEN HE FINDS A RIDE. CM EXPLAINED THAT PT'S FAMILY MEMBERS ARE CALLING AND INFORMING HOSPITAL STAFF THEY ARE NOT PICKING UP PT. PT STATES HE HAS FRIENDS THAT ARE GOING TO HELP. CM PROVIDED PT WITH MEDICARE WEBSITE RESULTS FOR [facility] WITHIN 50 MILES OF HIS HOME. CM EXPLAINED THAT [facility] WILL NOT ACCEPT PT BACK AND THAT IF PT CHANGES HIS MIND AND DECIDES TO GO TO REHAB, CM WILL NEED PT'S TOP TWO SELECTIONS AND SIGNATURE ON THE CHOICE FORM. IMPORTANT MESSAGE FROM MEDICARE PROVIDED AND EXPLAINED. PT ASKED CM TO CALL ADAM SANCHES, PHARMACIST AT [facility] TO HAVE HER , JOHN SANCHES, CALL PT. CM CALLED AND WAS ADVISED BY ADAM THAT AGUSTIN SPOKE TO PT YESTERDAY AND SHE WILL LET HER KNOW THAT PT WANTS TO TALK TO HIM AGAIN. CM STILL REFUSING [facility] FACLITY PLACEMENT. CM WAITING ON PT TO DEVELOP TRANSPORTATION HOME. IF TRANSPORTATION IS VERIFIED, CALL [facility], , WILL HAS AGREED TO ARRANGE PORTABLE OXGYEN TO HOSPITAL FOR PT TO LEAVE HOSPITAL. CM TO CONTINUE TO FOLLOW AND ASSIST NEEDED. Chief Yeoman: Brandin Garcia DCP- Discharge Planning Updated by [id number]: Brandin Garcia on 04/21/19 8:[address] Patient Name: ABBY PHILLIPS Encounter No: [id number] : 1945 Primary Insurance: [facility] MEDIC[facility] SOLUTIONS Anticipated DC Date: 04-21-2019 Planned Disposition: Left Against Medical Advice DCP follow-up note: HARSHAL SPOKE TO HERIBERTO SANCHES REGARDING PT'S DISCHARGE PLAN. TREATMENT TEAM CONCERNED THAT PT DOES NOT HAVE SAFE DISCHARGE PLAN. CM MET WITH HERIBERTO SANCHES WITH PT IN ROOM. PT INSISTS THAT HE WILL GO HOME, JOHN SANCHES, , WILL PICK HIM UP. PT REPORTS ALEXSANDRA LOPEZ, A FRIEND FROM [facility] WILL ASSIST WITH CARING FOR PT IN HOME AND ASSIST WITH GETTING TO AND FROM DIALYSIS. PT REPORTS HE NORMALLY DRIVES HIMSELF TO AND FROM DIALYSIS AND IS ABLE TO TRANSFER HIMSELF TO A WHEELCHAIR, GET TO HIS CAR, GET THE WHEELCHAIR INTO THE TRUCK OF THE CAR AND THEN WALK TO AND GET INTO THE DRIVERS SEAT HOLDING ON TO THE CAR. PT REPORTS HAVING ELECTRIC AND MANUAL WHEELCHAIR AND IS ABLE TO TRANSFER HIMSELF FROM BED TO CHAIR AND CHAIR TO BED. PT DOES NOT KNOW THE NUMBER TO HIS FRIEND ALEXSANDRA, TO VERIFY HE WILL ASSIST AFTER DISCHARGE. PT REPORTS HIS SISTER HANDY LIVES IN HIS HOUSE AND HAS FOR FOUR MONTHS. CM ADVISED THAT FAMILY INFORMED STAFF HERE THAT PT NEEDS NURSING REHAB. PT REPORTS THAT HIS FAMILY IS WANTING TO KEEP HIM AWAY AND IN THE [facility]. HERIBERTO SANCHES ADVISED THAT PT MUST HAVE A SAFE AND VERIFIABLE PLAN TO DISCHARGE HOME. HARSHAL ATTEMPTED TO CALL JOHN SANCHES, ; THERE WAS NO ANSWER AND NO MESSAGE MACHINE. HARSHAL CALLED [facility], , SPOKE TO POURER METAL RAYNE WHO INFORMED CM THAT THEY CAN DELIVER PORTABLE OXYGEN TO PT'S ROOM FOR DISCHARGE IF NEEDED. HARSHAL SPOKE TO PT IN ROOM, HERIBERTO SANCHES WAS IN ROOM SPEAKING TO PT. PT STATES HE IS LEAVING "AMA". HERIBERTO SANCHES INFORMED PT THAT PT MUST HAVE A PERSON TO VERIFY THEY ARE TRANSPORTING PRIOR TO ANY AMA FORMS BEING PRESENTED. HARSHAL ADVISED PT IF HE IS ABLE TO VERIFY TRANSPORATATION BY CM SPEAKING TO THAT PERSON AND THEY AGREE TO COMMUTATOR ASSEMBLER PT, HARSHAL WILL ASK [facility] TO DELIVER PORTABLE OXYGEN TO ROOM. CM ASKED THAT IF PT CHANGES HIS MIND AND DECIDES TO GO TO [facility], TO PLEASE NOTIFY CM AND CM WILL BE GLAD TO ASSIST WITH PLACEMENT. PT DECLINED. CM WAITING ON PT TO DEVELOP TRANSPORTATION HOME. IF TRANSPORTATION IS VERIFIED, CALL [facility], , WILL HAS AGREED TO ARRANGE PORTABLE OXGYEN TO HOSPITAL FOR PT TO LEAVE HOSPITAL. CM TO CONTINUE TO FOLLOW AND ASSIST NEEDED. Chief Yeoman: Brandin Garcia DCP- Discharge Planning Updated by [email or web address]: Brandin Garcia on 04/20/19 1:[address] Patient Name: ABBY PHILLIPS Encounter No: [id number] : 1945 Primary Insurance: [facility] MEDICARE SOLUTIONS Anticipated DC Date: 04-19-2019 Planned Disposition: Home DCP follow-up note: CM MET WITH PT IN ROOM AND ENCOURAGED PT TO GO TO REHAB PRIOR TO DISCHARGE HOME. PT CONTINUES TO REFUSE AND REPORTS HIS SISTER WILL PICK HIM UP FOR DISCHARGE HOME. PT STATES HE MAY NEED OXYGEN FROM [facility] AGAIN TO GO HOME. CM EXPLAINED THAT IF HIS SISTER IS PICKING HIM UP AND SHE IS STAYING WITH PT IN PT'S HOME, SHE SHOULD BRING OXYGEN WITH HER. PT WILL REQUEST HIS SISTER BRING OXYGEN WITH HER. CM RECEIVED CALL FROM MIRIAM GORDON, , WHO INFORMED CM THAT PT HAS BEEN CALLING STATING HE IS GOING TO BE DISCHARGED TODAY AND NEEDS A RIDE HOME. JORGE STATES PT NEEDS TO GO BACK TO NURSING FACILITY FOR REHAB AND NOT HOME. CM EXPLAINED THAT CM CANNOT MAKE PT DO SOMETHING AGAINST PT'S WILL AND THAT IF PT IS NOT DEEMED INCOMPETENT BY A PHYSICIAN OR COURT, PT CAN MAKE BAD DECISIONS FOR HIMSELF. CM EXPLAINED HOW TO FILE FOR GUARDIANSHIP OF A PERSON AND THAT THIS WOULD HAVE TO BE GRANTED FOR ANYONE TO MAKE PT DO SOMETHING AGAINST HIS WILL. JORGE REPORTS UNDERSTANDING. PT PLANS TO DISCHARGE HOME WITH HIS SISTER, PT REPORTS HIS SISTER WILL PICK HIM UP FOR DISCHARGE HOME. PT DECLINES [facility], [facility] OR REHAB PLACEMENT. PATIENT IS NOT APPROPRIATE FOR HOME HEALTH PER [facility]. Chief Yeoman: Brandin Garcia DCP- Discharge Planning Updated by [id number]: Brandin Garcia on 04/19/19 3:[address] Patient Name: ABBY PHILLIPS Admission Status: ER Accout number: [id number] Admission Date: 04-19-2019 : 1945 Admission Diagnosis: Attending: SAMUEL COOPER Current LOS: 1 Anticipated DC Date: 04-19-2019 Planned Disposition: Home Primary Insurance: [facility] MEDICARE SOLUTIONS Discharge Planning Comments: CM MET WITH PT IN ROOM TO DISCUSS DISCHARGE PLANNING AND NEEDS. PT REPORTS LIVING AT HOME DEPENDENTLY WITH HIS SISTER HANDY WHO IS STAYING WITH PT IN PT'S HOME TO CARE FOR PT. . PT HAS [facility] LIFT AND WHEELCHAIR WELL HOME AND PORTABLE OXYGEN FROM [facility]. PT HAS NO OUTSIDE SERVICES ASSISTING IN THE HOME [facility] DECLINED TO ADMIT HIM AND TOLD HIM HE HAS TO BE DOING BETTER FOR HOME HEALTH SERVICES. CM DISCUSSED AVAILABILITY OF HOME HEALTH, REHAB SERVICES AND MEDICAL EQUIPMENT. PT DECLINED [facility] OR REHAB PLACEMENT. PT DENIES DISCHARGE NEEDS, REPORTS HIS SISTER HANDY WILL PICK HIM UP FOR DISCHARGE HOME. PT REPORTS MISSING DIALYSIS BECAUSE HE WENT ON THURSDAY AND THEY DID NOT HAVE A SLING TO USE ON THE LIFT TO PICK HIM UP AT THE DIALYSIS UNIT. PT STATES HE HAS A SLING AT HOME AND FORGOT ABOUT IT. PT REPORTS HIS SISTER USES THE ARELI LIFT TO GET HIM TO THE WHEELCHAIR AND THEY WILL LEAVE THE SLING UNDER HIM FOR DIALYSIS TO USE FROM NOW ON. CHOICE SIGNED FOR [facility] TO VERIFY WITH THEM THAT THEY WILL NOT SEE PT. CM CALLED [facility], , LEFT MESSAGE ASKING FOR THE NURSE TO CALL CM BACK. PT PLANS TO DISCHARGE HOME WITH HIS SISTER, PT REPORTS HIS SISTER WILL PICK HIM UP FOR DISCHARGE HOME. PT DECLINES [facility], [facility] OR REHAB PLACEMENT. Chief Yeoman: Brandin Garcia Appended by Brandin Garcia on 04/19/2019 16:56 CDT: CM RECEIVED CALL FROM JERICA OF [facility] WHO INFORMED CM THAT THEY DID GO FOR THE HOME HEALTH ADMIT AND INFORMED PT AND FAMILY THAT PT NEEDS REHAB AND IS NOT APPROPRIATE FOR HOME HEALTH SERVICES AT THIS TIME. PT PLANS TO DISCHARGE HOME WITH HIS SISTER, PT REPORTS HIS SISTER WILL PICK HIM UP FOR DISCHARGE HOME. PT DECLINES [facility], [facility] OR REHAB PLACEMENT. Chief Yeoman: Brandin Garcia DCPIA - Discharge Planning Initial Assessment Updated by [id number]: Brandin Garcia on 04/22/19 11:13 am * Is the patient Alert and Oriented? Yes * How many steps to enter\\exit or inside your home? NONE * PCP DR. ARACELI SIDHU * [facility] * Preadmission Environment Home with Family * ADLs Partial Dependent * Partial ADLs (Assistance needed) Ambulation Bathing Dressing Medication Management Toileting Transfers * Equipment [employer] Lift Oxygen Wheelchair * Other Equipment HOME AND PORTABLE OXYGEN, [facility] * List name and contact numbers for known caregivers / representatives who currently or will assist patient after discharge: HANDY JONES, SISTER [phone] JORGE GORDON, SISTER, CHARLEY PHILLIPS, SON, * Verbal permission to speak to the caregivers and representatives has been obtained from the patient. Yes * Community resources currently utilized None * Please name any agencies selected above. PT HAD INTAKE WITH [facility] FROM [facility], ACCORDING TO PT, THEY DECLINED T PROVIDE SERVICES UNTIL HE WAS "DOING BETTER" OUTPATIENT DIALYSIS , [facility], [facility], [facility]. PT REPORTS HE HAS BEEN DRIVING HIMSELF. * Additional services required to return to the preadmission environment? No * Can the patient safely return to the preadmission environment? Yes * Has this patient been hospitalized within the prior 30 days at any hospital? Yes Coverage Notice Reviewer: [id number] Skylar Augustin Notice Issued Date-Time: 04/19/2019 9:30 Notice Type: Medicare Outpatient Observation Notice Notice Delivered To: Patient Relationship to Patient: Self Rib Cloth Knitter Name: Delivery Method: HAND - Hand Delivered Anusha Days: Prior Verbal Notification: Recipient Understood Notice: Yes Recipient Signature: Yes Med Rec Note Co-signed by Attending: Coverage Notice Comment: Reviewer: [id number] Garcia Notice Issued Date-Time: 04/19/2019 12:15 Notice Type: Patient Choice Letter Notice Delivered To: Patient Relationship to Patient: Rib Cloth Knitter Name: Delivery Method: HAND - Hand Delivered Anusha Days: Prior Verbal Notification: Recipient Understood Notice: Yes Recipient Signature: Yes Med Rec Note Co-signed by Attending: Coverage Notice Comment: [facility] Reviewer: [id number] Garcia Notice Issued Date-Time: 04/21/2019 11:45 Notice Type: IM Discharge Notice Notice Delivered To: Patient Relationship to Patient: Rib Cloth Knitter Name: Delivery Method: HAND - Hand Delivered Anusha Days: Prior Verbal Notification: Recipient Understood Notice: Yes Recipient Signature: Yes Med Rec Note Co-signed by Attending: Coverage Notice Comment: Reviewer: [id number] Garcia Notice Issued Date-Time: 04/22/2019 16:05 Notice Type: Patient Choice Letter Notice Delivered To: Patient Relationship to Patient: Rib Cloth Knitter Name: Delivery Method: HAND - Hand Delivered Anusha Days: Prior Verbal Notification: Recipient Understood Notice: Yes Recipient Signature: Yes Med Rec Note Co-signed by Attending: Coverage Notice Comment: [facility]. Last DP export: 04/26/19 8:58 Patient Name: ABBY PHILLIPS Page [id number] at 1221 All edits/amendments must be made on the electronic document DICTATION DATE: 04/27/19 1221 LIQUOR ESTABLISHMENT MANAGER: APRIL 04/27/19 1221 RPT#: [id number] RI DATE: STATUS: ADM IN [facility] [address] [place] [address] END OF REPORT
[2019-04-27 13:36] VITALS: BP 118/48
--- NOTE | 2019-04-27 13:49 | NUR ---
I have reviewed this patient and I concur with the Shift Assessment completed by the Licensed Practical Nurse today this shift.
--- NOTE | 2019-04-27 14:10 | NUR ---
Nutrition Follow-up: Pt sitting up in chair with lunch tray at time of visit. C/o of nausea; no vomiting. Per record, 25% of breakfast eaten this AM. Drinking 2 Nepro/day. Diet: Renal ADA, Mechanical Soft PO intake: 67% avg x 6 meals No new wt Last BM: 3-4 days ago per pt Labs reviewed Meds reviewed -Continue current diet/supplements as tolerated. -Rec new wt. -RD following.
--- NOTE | 2019-04-27 17:26 | NUR ---
OT NOTE: PT COMPLETED GROOMING TASKS WITH MIN A. PT COMPLETED BED MOB TASKS WITH MIN A. THANK YOU, DEISY COTTON
[2019-04-27 18:12] VITALS: BP 169/59
--- NOTE | 2019-04-27 19:14 | NUR ---
BEDSIDE REPORT RECEIVED FROM DAY SHIFT, PT CARE ASSUMED. WROTE NAME ON BOARD, PT SITTING UP IN BED, AAOX4, C/O SOB, REQUESTING RESPIRATORY TX. RESPIRATORY CURRENTLY ROUNDING ON THE UNIT, INFORMED OF PT'S REQUEST, STATED WOULD SEE HIM NEXT FOR PRN TREATMENT. DENIES ANY OTHER NEEDS AT THIS TIME. BED IN LOWEST POSITION, SR X2, CALL LIGHT WITHIN REACH. WILL CONTINUE TO MONITOR.
[2019-04-27 20:00] VITALS: BP 178/65
--- NOTE | 2019-04-27 22:17 | NUR ---
FSBS 197. NIGHT TIME MEDS ADMINISTERED, PER ORDER. OFFERED PT SNACK, PT ACCEPTED. C/O SOB, RESPIRATORY CALLED. DENIES ANY OTHER NEEDS AT THIS TIME. BED IN LOWEST POSITION, SR X2, CALL LIGHT WITHIN REACH. WILL CONTINUE TO MONITOR.
[2019-04-28] VITALS: BP 148/50
[2019-04-28 04:00] VITALS: BP 156/75
[2019-04-28 06:09] LABS: BASOPHILS 0.1 % (0-2); EOSINOPHILS 1.1 % (0-7); HEMATOCRIT 28.8 % (42.0-54.0); HEMOGLOBIN 8.6 g/dL (13.5-17.5); IMMATURE GRANULOCYTES 0.4 % (0-5); LYMPHOCYTES 17.8 % (15-50); MCH 25.9 pg (26.0-34.0); MCHC 29.9 g/dL (31.0-37.0); MCV 86.7 fL (80.0-100.0); MEAN PLATELET VOLUME 9.7 fL (7.4-10.4); MONOCYTES 13.6 % (2-11); PLATELET COUNT 378 10x3/uL (130-400); RBC 3.32 10x6/uL (4.20-6.10); RDW 18.6 % (11.5-14.5); WBC 13.4 10x3/uL (4.8-10.8)
--- NOTE | 2019-04-28 07:55 | MORECARE ---
CASE MANAGEMENT DISCHARGE SUMMARY PATIENT: ABBY PHILLIPS UNIT: [id number] ADM DATE: 04/19/19 AGE: 73 : [birth year] SEX: M ROOM/BED: D.8612 AUTHOR: BYRON,DOC PHYSICIAN: REFERRING PHYSICIAN: SAMUEL COOPER MD DATE OF SERVICE: 04/28/19 Discharge Plan Patient Name: ABBY PHILLIPS Facility: [facility]:[place] : 1945 Planned Disposition: Custodial Facility Anticipated Discharge Date: 04/21/19 Discharge Date: Expected LOS: 2 Initial Reviewer: [email or web address] Initial Review Date: 04/18/2019 Generated: 04/28/19 8:54 am Comments DCP- Discharge Planning Updated by [id number]: Brandin Garcia on 04/28/19 6:[address] Patient Name: ABBY PHILLIPS Encounter No: [id number] : 1945 Primary Insurance: [facility] [employer] Anticipated DC Date: 04-21-2019 Planned Disposition: Custodial Facility External Planned Provider: [facility] OR [facility] IN [place], MEDICARE REHAB BED DCP follow-up note: CM REVIEWED CHART, PT DID PARTICIPATE WITH THERAPY ON 04-27-19. PT DID SIT UP IN CHAIR FOR THREE OR MORE HOURS. CM FAXED REFERRAL UPDATE TO [facility] AT [phone]. AND [facility] AT [phone]. CM WAITING ADMISSION DETERMINATIONS FROM [facility] AND [facility]. IF EITHER FACLITY WILL ACCEPT, CM WILL REQUEST CHANGE OF DIALYSIS UNIT. PT'S INSURANCE ALSO REQUIRES PRIOR AUTHORIZATION FOR REHAB PLACEMENT. SELENA Escobedo DCP- Discharge Planning Updated by [id number]: Brandin Garcia on 04/27/19 11:[address] Patient Name: ABBY PHILLIPS Encounter No: [id number] : 1945 Primary Insurance: [facility] [employer] [employer] Anticipated DC Date: 04-21-2019 Planned Disposition: Custodial Facility External Planned Provider: [facility] OR [facility] IN [place], MEDICARE REHAB BED DCP follow-up note: CM REVIEWED CHART, PT DID NOT PARTICIPATE WITH THERAPY ON 04-26-19. CM MET WITH PT IN ROOM TO DISCUSS DISCHARGE PLANNING AND NEEDS. PT DOES NOT WANT PRISON CARE OR HOSPICE. PT INSISTS THAT HE WANTS REHAB SERVICES. CM EXPLAINED THAT PT HAS TO PARTICIPATE FULLY WITH THERAPY EACH TIME OFFERED INSURANCE WILL NOT PAY FOR REHAB SERVICES WITHOUT PARTICIPATION WITH OFFERED THERAPY. PT REPORTS UNDERSTANDING. PT PROMISES TO PARTICIPATE WITH THERAPY SERVICES AND UNDERSTANDS THAT HE MUST SIT UP IN CHAIR FOR THREE OR MORE HOURS TO SHOW HE CAN GO TO OUTPATIENT DIALYSIS. CM RECEIVED CALL FROM MATILDA OF [facility] WHO WILL FOLLOW, BUT WILL ONLY CONSIDER IF PT IS PARTICIPATING WITH THERAPY. CM TO FAX REFERRAL UPDATE [facility] AT [phone]. AND [facility] AT [phone], ONCE NEW THERAPY NOTES ARE DOCUMENTED ON 04-27. CM WAITING ADMISSION DETERMINATIONS FROM [facility] AND [facility]. IF EITHER FACLITY WILL ACCEPT, CM WILL REQUEST CHANGE OF DIALYSIS UNIT. PT'S INSURANCE ALSO REQUIRES PRIOR AUTHORIZATION FOR REHAB PLACEMENT. Brandin Garcia, CASE MANAGEMENT DCP- Discharge Planning Updated by [id number]: Brandin Garcia on 04/26/19 8:[address] Patient Name: ABBY PHILLIPS Encounter No: [id number] : 1945 Primary Insurance: [facility] [employer] [employer] Anticipated DC Date: 04-21-2019 Planned Disposition: Custodial Facility External [facility] IN [place], MEDICARE REHAB BED DCP follow-up note: CM [facility] [phone]. CM FAXED REFERRAL UDPATE FOR [facility] TO PRASHANTH AT [phone]. CM TO DISCUSS WITH REHAB TODAY THAT PT NEEDS TO HAVE DEMONSTRATED ABILITY TO SIT FOR THREE OR MORE HOURS IN CHAIR FOR OUTPATIENT DIALYSIS. CM WAITING ADMISSION DETERMINATIONS FROM [facility] AND [facility]. Brandin Garcia CASE MANAGEMENT DCP- Discharge Planning Updated by [id number]: Brandin Garcia on 04/25/19 1:[address] Patient Name: ABBY PHILLIPS Encounter No: [id number] : 1945 Primary Insurance: [facility] [employer] [employer] Anticipated DC Date: 04-21-2019 Planned Disposition: Custodial Facility External Planned Provider: [facility] IN [place], MEDICARE REHAB BED DCP follow-up note: CM RECEIVED CALL FROM CHARLEY PHILLIPS, PT'S SON, WHO ASKED WHAT IS TAKING SO LONG TO GET PT INTO REHAB IN [place]. CM EXPLAINED PLACEMENT PROCESS, INSURANCE APPROVAL TIME FRAME AND ALSO THE PROCESS OF HAVING TO GET ACCEPTING DIALYSIS UNIT IF CM CAN GET FACILITY TO ACCEPT PT. CHARLEY REPORTS UNDERSTANDING. CM CALLED [facility], , SPOKE TO SYD WHO INFORMED CM THAT SHE DID NOT GET THE REFERRAL. CM CONFIRMED FAX NUMBER, REVIEWED AND FOUND FAX CONFIRMATION FROM THURSDAY. CM FAXED REFERRAL AND UPDATE TO [facility] AT [phone]. CM SPOKE PRASHANTH OF [facility], , SHE WILL CALL [facility] AND GET UPDATE SHE HAS NOT "HEARD A WORD". CM FAXED REFERRAL UDPATE FOR [facility] TO PR[facility]AN[facility] AT [phone]. CM WAITING [facility]ATIONS [facility]. Brandin Garcia, CASE MANAGEMENT DCP- Discharge Planning Updated by [id number]: Brandin Garcia on 04/22/19 10:[address] Patient Name: ABBY PHILLIPS Encounter No: [id number] : 1945 Primary Insurance: [facility] [employer] [employer] Anticipated DC Date: 04-21-2019 Planned Disposition: Custodial Facility External Planned Provider: [facility] IN [place], MEDICARE REHAB BED DCP follow-up note: CM SPOKE TO PT IN ROOM REGARDING DISCHARGE PLANNING. PT WILL GO TO REHAB IN [place] SO HE WILL BE CLOSE TO HIS SON. PT ASKED CM TO HURRY UP HE IS TIRED OF BEING IN THE HOSPITAL. CM EXPLAINED TO PT THAT IF HE WOULD HAVE DECIDED SOONER, CM WOULD HAVE ALREADY BEEN WORKING ON REHAB PLACEMENT. PT SIGNED CONSENT FOR [facility] SUGGESTED BY HIS SON AND FOR ANY LONG TERM REHAB IN [place]. CM EXPLAINED TO PT THAT HIS INSURANCE MAY TAKE SEVERAL DAYS TO APPROVE OR DECLINE REHAB SERVICES AND THAT CM WILL HAVE TO FIND A FACILITY THAT WILL TRANSPORT TO DIALYSIS AND IF ALL OF THAT IS DONE, CM WILL HAVE TO REQUEST A NEW DIALYSIS UNIT. PT REPORTS UNDERSTANDING. CM CALLED [facility], , SPOKE TO KAVIN WHO WILL SCREEN FOR ADMISSION. CM FAXED REFERRAL TO [facility] AT [phone]. CM NOTIFIED PRASHANTH OF [facility], , OF REFERRAL. CM FAXED REFERRAL FOR [facility] TO PRASHANTH AT [phone]. CM WAITING ADMISSION DETERMINATIONS FROM [facility]. Brandin Garcia, CASE MANAGEMENT DCP- Discharge Planning Updated by [id number]: Brandin Garcia on 04/21/19 4:[address] Patient Name: ABBY PHILLIPS Encounter No: [id number] : 1945 Primary Insurance: [facility] [employer] [employer] Anticipated DC Date: 04-21-2019 Planned Disposition: Custodial Facility External Planned Provider: [facility] OR OTHER LONG TERM IN [place] DCP follow-up note: CM RECEIVED CALL FROM CHARLEY PHILLIPS, PT'S SON, WHO REPORTS THAT HE HAS TALKED TO PT VIA PHONE AND PT IS NOW AGREEING TO GO TO LONG TERM REHAB IN [place], CLOSE TO HIS SON. CM ATTEMPTED TO SEE PT WHO WAS OUT OF ROOM AT APPROXIMATELY 1345 HOURS. CM WILL SPEAK TO PT SOON POSSIBLE REGARDING LONG TERM REHAB IN [place] AND SEND REFERRALS IF PT WILL SIGN THE CONSENT. Brandin Garcia CASE ROXANNA DCP- Discharge Planning Updated by [id number]: Brandin Garcia on 04/21/19 11:[address] Patient Name: ABBY PHILLIPS Encounter No: [id number] : 1945 Primary Insurance: [facility] [employer] [employer] Anticipated DC Date: 04-21-2019 Planned Disposition: Left Against Medical Advice DCP follow-up note: CM SPOKE TO BEDSIDE NURSE WHO REPORTS PT'S SISTER, JORGE, CALLED AND STATES SHE WILL NOT BE PICKING PT UP FOR TRANSPORT HOME. CM MET WITH PT IN ROOM TO DISCUSS DISCHARGE PLANNING AND NEEDS. PT REPORTS STILL PLANNING TO LEAVE WHEN HE FINDS A RIDE. CM EXPLAINED THAT PT'S FAMILY MEMBERS ARE CALLING AND INFORMING HOSPITAL STAFF THEY ARE NOT PICKING UP PT. PT STATES HE HAS FRIENDS THAT ARE GOING TO HELP. CM PROVIDED PT WITH MEDICARE WEBSITE RESULTS FOR LONG TERM REHABS WITHIN 50 MILES OF HIS HOME. CM EXPLAINED THAT [facility] WILL NOT ACCEPT PT BACK AND THAT IF PT CHANGES HIS MIND AND DECIDES TO GO TO REHAB, CM WILL NEED PT'S TOP TWO SELECTIONS AND SIGNATURE ON THE CHOICE FORM. IMPORTANT MESSAGE FROM MEDICARE PROVIDED AND EXPLAINED. PT ASKED CM TO CALL ADAM SANCHES, PHARMACIST AT [facility] TO HAVE HER , JOHN SANCHES, CALL PT. CM CALLED AND WAS ADVISED BY ADAM THAT AGUTSIN SPOKE TO PT YESTERDAY AND SHE WILL LET HER KNOW THAT PT WANTS TO TALK TO HIM AGAIN. CM STILL REFUSING LONG TERM FACLITY PLACEMENT. CM WAITING ON PT TO DEVELOP TRANSPORTATION HOME. IF TRANSPORTATION IS VERIFIED, CALL [facility], , WILL HAS AGREED TO ARRANGE PORTABLE OXGYEN TO HOSPITAL FOR PT TO LEAVE HOSPITAL. CM TO CONTINUE TO FOLLOW AND ASSIST NEEDED. Manual Qa Tester: Brandin Garcia DCP- Discharge Planning Updated by [id number]: Brandin Garcia on 04/21/19 8:[address] Patient Name: ABBY PHILLIPS Encounter No: [id number] : 1945 Primary Insurance: [facility] [employer] [employer] Anticipated DC Date: 04-21-2019 Planned Disposition: Left Against Medical Advice DCP follow-up note: CM SPOKE TO HERIBERTO SANCHES REGARDING PT'S DISCHARGE PLAN. TREATMENT TEAM CONCERNED THAT PT DOES NOT HAVE SAFE DISCHARGE PLAN. CM MET WITH HERIBERTO SANCHES WITH PT IN ROOM. PT INSISTS THAT HE WILL GO HOME, [facility], , WILL PICK HIM UP. PT REPORTS ALEXSANDRA LOPEZ, A FRIEND FROM [facility] WILL ASSIST WITH CARING FOR PT IN HOME AND ASSIST WITH GETTING TO AND FROM DIALYSIS. PT REPORTS HE NORMALLY DRIVES HIMSELF TO AND FROM DIALYSIS AND IS ABLE TO TRANSFER HIMSELF TO A WHEELCHAIR, GET TO HIS CAR, GET THE WHEELCHAIR INTO THE TRUCK OF THE CAR AND THEN WALK TO AND GET INTO THE DRIVERS SEAT HOLDING ON TO THE CAR. PT REPORTS HAVING ELECTRIC AND MANUAL WHEELCHAIR AND IS ABLE TO TRANSFER HIMSELF FROM BED TO CHAIR AND CHAIR TO BED. PT DOES NOT KNOW THE NUMBER TO HIS FRIEND ALEXSANDRA, TO VERIFY HE WILL ASSIST AFTER DISCHARGE. PT REPORTS HIS SISTER HANDY LIVES IN HIS HOUSE AND HAS FOR FOUR MONTHS. CM ADVISED THAT FAMILY INFORMED STAFF HERE THAT PT NEEDS NURSING REHAB. PT REPORTS THAT HIS FAMILY IS WANTING TO KEEP HIM AWAY AND IN THE DETENTION. HERIBERTO SANCHES ADVISED THAT PT MUST HAVE A SAFE AND VERIFIABLE PLAN TO DISCHARGE HOME. CM ATTEMPTED TO CALL JOHN [facility], ; THERE WAS NO ANSWER AND NO MESSAGE MACHINE. CM CALLED [facility], , SPOKE TO [employer] WILL WHO INFORMED CM THAT THEY CAN DELIVER PORTABLE OXYGEN TO PT'S ROOM FOR DISCHARGE IF NEEDED. CM SPOKE TO PT IN ROOM, HERIBERTO SANCHES WAS IN ROOM SPEAKING TO PT. PT STATES HE IS LEAVING "AMA". HERIBERTO SANCHES INFORMED PT THAT PT MUST HAVE A PERSON TO VERIFY THEY ARE TRANSPORTING PRIOR TO ANY AMA FORMS BEING PRESENTED. CM ADVISED PT IF HE IS ABLE TO VERIFY TRANSPORATATION BY CM SPEAKING TO THAT PERSON AND THEY AGREE TO LABOR AND DELIVERY NURSE PT, CM WILL ASK [facility] TO DELIVER PORTABLE OXYGEN TO ROOM. CM ASKED THAT IF PT CHANGES HIS MIND AND DECIDES TO GO TO LONG TERM REHAB, TO PLEASE NOTIFY CM AND CM WILL BE GLAD TO ASSIST WITH PLACEMENT. PT DECLINED. CM WAITING ON PT TO DEVELOP TRANSPORTATION HOME. IF TRANSPORTATION IS VERIFIED, CALL [facility], , WILL HAS AGREED TO ARRANGE PORTABLE OXGYEN TO HOSPITAL FOR PT TO LEAVE HOSPITAL. CM TO CONTINUE TO FOLLOW AND ASSIST NEEDED. Manual Qa Tester: Brandin Garcia DCP- Discharge Planning Updated by [id number]: Brandin Garcia on 04/20/19 1:[address] Patient Name: ABBY PHILLIPS Encounter No: [id number] : 1945 Primary Insurance: [facility] [employer] Anticipated DC Date: 04-19-2019 Planned Disposition: Home DCP follow-up note: CM MET WITH PT IN ROOM AND ENCOURAGED PT TO GO TO REHAB PRIOR TO DISCHARGE HOME. PT CONTINUES TO REFUSE AND REPORTS HIS SISTER WILL PICK HIM UP FOR DISCHARGE HOME. PT STATES HE MAY NEED OXYGEN FROM [facility] AGAIN TO GO HOME. CM EXPLAINED THAT IF HIS SISTER IS PICKING HIM UP AND SHE IS STAYING WITH PT IN PT'S HOME, SHE SHOULD BRING OXYGEN WITH HER. PT WILL REQUEST HIS SISTER BRING OXYGEN WITH HER. CM RECEIVED CALL FROM MIRIAM GORDON, , WHO INFORMED CM THAT PT HAS BEEN CALLING STATING HE IS GOING TO BE DISCHARGED TODAY AND NEEDS A RIDE HOME. JORGE STATES PT NEEDS TO GO BACK TO NURSING FACILITY FOR REHAB AND NOT HOME. CM EXPLAINED THAT CM CANNOT MAKE PT DO SOMETHING AGAINST PT'S WILL AND THAT IF PT IS NOT DEEMED INCOMPETENT BY A PHYSICIAN OR COURT, PT CAN MAKE BAD DECISIONS FOR HIMSELF. CM EXPLAINED HOW TO FILE FOR GUARDIANSHIP OF A PERSON AND THAT THIS WOULD HAVE TO BE GRANTED FOR ANYONE TO MAKE PT DO SOMETHING AGAINST HIS WILL. JORGE REPORTS UNDERSTANDING. PT PLANS TO DISCHARGE HOME WITH HIS SISTER, PT REPORTS HIS SISTER WILL PICK HIM UP FOR DISCHARGE HOME. PT DECLINES DETENTION, LONG TERM OR REHAB PLACEMENT. PATIENT IS NOT APPROPRIATE FOR HOME HEALTH PER [facility]. Manual Qa Tester: Brandin Garcia DCP- Discharge Planning Updated by [id number]: Brandin Garcia on 04/19/19 3:[address] Patient Name: ABBY PHILLIPS Admission Status: ER Accout number: [id number] Admission Date: 04-19-2019 : 1945 Admission Diagnosis: Attending: SAMUEL COOPER Current LOS: 1 Anticipated DC Date: 04-19-2019 Planned Disposition: Home Primary Insurance: [facility] [employer] [employer] Discharge Planning Comments: CM MET WITH PT IN ROOM TO DISCUSS DISCHARGE PLANNING AND NEEDS. PT REPORTS LIVING AT HOME DEPENDENTLY WITH HIS SISTER HANDY WHO IS STAYING WITH PT IN PT'S HOME TO CARE FOR PT. . PT HAS [facility] WHEELCHAIR WELL HOME AND PORTABLE OXYGEN FROM [facility]. PT HAS NO OUTSIDE SERVICES ASSISTING IN THE HOME [facility] DECLINED TO ADMIT HIM AND TOLD HIM HE HAS TO BE DOING BETTER FOR HOME HEALTH SERVICES. CM DISCUSSED AVAILABILITY OF HOME HEALTH, REHAB SERVICES AND MEDICAL EQUIPMENT. PT DECLINED DETENTION OR REHAB PLACEMENT. PT DENIES DISCHARGE NEEDS, REPORTS HIS SISTER HANDY WILL PICK HIM UP FOR DISCHARGE HOME. PT REPORTS MISSING DIALYSIS BECAUSE HE WENT ON THURSDAY AND THEY DID NOT HAVE A SLING TO USE ON THE LIFT TO PICK HIM UP AT THE DIALYSIS UNIT. PT STATES HE HAS A SLING AT HOME AND FORGOT ABOUT IT. PT REPORTS HIS SISTER USES THE [employer] LIFT TO GET HIM TO THE WHEELCHAIR AND THEY WILL LEAVE THE SLING UNDER HIM FOR DIALYSIS TO USE FROM NOW ON. CHOICE SIGNED FOR [facility] TO VERIFY WITH THEM THAT THEY WILL NOT SEE PT. CM CALLED [facility], , LEFT MESSAGE ASKING FOR THE NURSE TO CALL CM BACK. PT PLANS TO DISCHARGE HOME WITH HIS SISTER, PT REPORTS HIS SISTER WILL PICK HIM UP FOR DISCHARGE HOME. PT DECLINES DETENTION, LONG TERM OR REHAB PLACEMENT. Manual Qa Tester: Brandin Garcia Appended by Brandin Garcia on 04/19/2019 16:56 CDT: CM RECEIVED CALL FROM JERICA OF [employer] [facility] WHO INFORMED CM THAT THEY DID GO FOR THE HOME HEALTH ADMIT AND INFORMED PT AND FAMILY THAT PT NEEDS REHAB AND IS NOT APPROPRIATE FOR HOME HEALTH SERVICES AT THIS TIME. PT PLANS TO DISCHARGE HOME WITH HIS SISTER, PT REPORTS HIS SISTER WILL PICK HIM UP FOR DISCHARGE HOME. PT DECLINES DETENTION, LONG TERM OR REHAB PLACEMENT. Manual Qa Tester: Brandin Garcia DCPIA - Discharge Planning Initial Assessment Updated by [id number]: Brandin Garcia on 04/22/19 11:13 am * Is the patient Alert and Oriented? Yes * How many steps to enter\\exit or inside your home? NONE * PCP DR. ARACELI SIDHU * Pharmacy [facility] * Preadmission Environment Home with Family * ADLs Partial Dependent * Partial ADLs (Assistance needed) Ambulation Bathing Dressing Medication Management Toileting Transfers * Equipment [employer] Lift Oxygen Wheelchair * Other Equipment HOME AND PORTABLE OXYGEN, [facility] * List name and contact numbers for known caregivers / representatives who currently or will assist patient after discharge: HANDY JONES, SISTER [phone] JORGE GORDON, SISTER, CHARLEY PHILLIPS, SON, * Verbal permission to speak to the caregivers and representatives has been obtained from the patient. Yes * Community resources currently utilized None * Please name any agencies selected above. PT HAD INTAKE WITH [facility] [facility] FROM [facility], ACCORDING TO PT, THEY DECLINED T PROVIDE SERVICES UNTIL HE WAS "DOING BETTER" OUTPATIENT DIALYSIS , [facility], [facility], [facility]. PT REPORTS HE HAS BEEN DRIVING HIMSELF. * Additional services required to return to the preadmission environment? No * Can the patient safely return to the preadmission environment? Yes * Has this patient been hospitalized within the prior 30 days at any hospital? Yes Coverage Notice Reviewer: [id number] - Deborah [place] Notice Issued Date-Time: 04/19/2019 9:30 Notice Type: Medicare Outpatient Observation Notice Notice Delivered To: Patient Relationship to Patient: Self Compressor Mechanic Name: Delivery Method: HAND - Hand Delivered Anusha Days: Prior Verbal Notification: Recipient Understood Notice: Yes Recipient Signature: Yes Med Rec Note Co-signed by Attending: Coverage Notice Comment: Reviewer: LIO Garcia Notice Issued Date-Time: 04/19/2019 12:15 Notice Type: Patient Choice Letter Notice Delivered To: Patient Relationship to Patient: Compressor Mechanic Name: Delivery Method: HAND - Hand Delivered Anusha Days: Prior Verbal Notification: Recipient Understood Notice: Yes Recipient Signature: Yes Med Rec Note Co-signed by Attending: Coverage Notice Comment: [facility] Reviewer: LIO Garcia Notice Issued Date-Time: 04/21/2019 11:45 Notice Type: IM Discharge Notice Notice Delivered To: Patient Relationship to Patient: Compressor Mechanic Name: Delivery Method: HAND - Hand Delivered Anusha Days: Prior Verbal Notification: Recipient Understood Notice: Yes Recipient Signature: Yes Med Rec Note Co-signed by Attending: Coverage Notice Comment: Reviewer: LIO Garcia Notice Issued Date-Time: 04/22/2019 16:05 Notice Type: Patient Choice Letter Notice Delivered To: Patient Relationship to Patient: Compressor Mechanic Name: Delivery Method: HAND - Hand Delivered Anusha Days: Prior Verbal Notification: Recipient Understood Notice: Yes Recipient Signature: Yes Med Rec Note Co-signed by Attending: Coverage Notice Comment: [facility] LONG TERM FACILITY. Last DP export: 04/27/19 11:21 Patient Name: ABBY PHILLIPS Page [id number] at 0755 All edits/amendments must be made on the electronic document DICTATION DATE: 04/28/19 075 PLATING TANK OPERATOR APPRENTICE: APRIL 04/28/19 0754 RPT#: [id number] DC DATE: STATUS: ADM IN [facility] [address] [place] [address] END OF REPORT
[2019-04-28 10:44] VITALS: BP 132/96
[2019-04-28 13:42] VITALS: BP 117/81
--- NOTE | 2019-04-28 14:00 | NUR ---
OT NOTE: PT AGREEABLE TO SIT UP IN CHAIR; BED MOB WITH MIN ASSIST; RESISTANT TO ALLOW THERAPIST TO MARINA SOCKS BUT EDUCATED ON SAFETY AND PREVENTION OF FALLS. MIN ASSIST TO MARINA GOWN. SET UP FOR FEEDING. SIT TO STAND WITH MIN ASSIST; TRANSFER TO CHAIR WITH MIN ASSIST AND USE OF WALKER. UE AROM EXS WHILE SITTING UP. TOLERATED 90 DEGREES SHOULDER FLEX FOR L UE. PATRICK GANDHI OTR/Kayleigh
--- NOTE | 2019-04-28 15:26 | NUR ---
OT NOTE: PT EXHIBITED INCREASED AGITATION. PT COMPLETED BED MOBILITY TASK WITH CGA/MIN A. PT COMPLETED SIT TO STAND WITH CGA/MIN. PT COMPLETED FACE WASH WITH SET UP. PT COMPLETED GROOMING WITH SET UP. THANK YOU, DEISY COTTON
[2019-04-28 18:20] VITALS: BP 158/82
--- NOTE | 2019-04-28 18:55 | NUR ---
PT TAKEN TO DIALYSIS. VSS. DENIES PAIN OR NEEDS. BED LOW. HE IS ON 2L NC.
[2019-04-28 20:00] VITALS: BP 154/55
--- NOTE | 2019-04-28 21:00 | NUR ---
DIALYSIS NURSE CALLED TO SAY PT IS C/O BEING CONSTIPATED. HE IS TRYING TO REMOVE THE STOOL WITH HIS FINGER.INSTRUCTED PT NOT TO DO THAT AND GAVE HIM A PRUNE JUICE. ORDER GIVEN BY DR. COOPER TO GIVE STOOL SOFTENER NEEDED FOR CONSTIPATION. @ 2300 PT BACK FROM DIALYSIS. HE HAD A LARGE FORMED-HARD BOWEL MOVEMENT. OFFERED STOOL SOFTENER. HE DOES NOT WANT ONE AT THIS TIME BUT MAYBE TOMORROW HE STATES. VSS. PM MEDS GIVEN. GOWN AND LINEN CHANGE DONE. COCCYX WOUND CLEANED AND NEW MEPILEX PLACED OVER WOUND. BED LOW, AUGUSTINE BED ALARM ON AND CALL LIGHT IS WITHIN REACH. DENIES NEEDS AT THIS TIME.
[2019-04-29 04:00] VITALS: BP 171/54
--- NOTE | 2019-04-29 05:57 | NUR ---
AM MEDS GIVEN AND ATTEMPTED TO CHANGE PEG TUBE DRESSING. DRESSING HAS BROWN DRAINAGE AND THERE IS A FOUL ODOR NOTED. PT STATES TO COME BACK LATER BECAUSE HE WANTS TO SLEEP. ENCOURAGED HIM TO LET ME CHANGE IT AND DISCUSSED RISK OF INFECTION. HE STILL REFUSED AND ASKED ME TO GET OUT OF HIS ROOM SO HE COULD SLEEP. DENIES PAIN OR NEEDS. BED LOW. CALL LIGHT IN REACH.
[2019-04-29 07:00] LABS: BASOPHILS 0.3 % (0-2); EOSINOPHILS 1.5 % (0-7); HEMATOCRIT 32.6 % (42.0-54.0); HEMOGLOBIN 9.7 g/dL (13.5-17.5); IMMATURE GRANULOCYTES 0.6 % (0-5); LYMPHOCYTES 11.6 % (15-50); MCHC 29.8 g/dL (31.0-37.0); MCV 87.4 fL (80.0-100.0); MEAN PLATELET VOLUME 9.8 fL (7.4-10.4); MONOCYTES 14.7 % (2-11); NEUTROPHILS 71.3 % (40-80); PLATELET COUNT 342 10x3/uL (130-400); RBC 3.73 10x6/uL (4.20-6.10); RDW 19.2 % (11.5-14.5); WBC 14.3 10x3/uL (4.8-10.8)
--- NOTE | 2019-04-29 07:33 | MORECARE ---
CASE MANAGEMENT DISCHARGE SUMMARY PATIENT: ABBY PHILLIPS UNIT: [id number] ADM DATE: 04/19/19 AGE: 73 : [birth year] SEX: M ROOM/BED: D.3454 AUTHOR: BYRON,DOC PHYSICIAN: REFERRING PHYSICIAN: SAMUEL COOPER MD DATE OF SERVICE: 04/29/19 Discharge Plan Patient Name: ABBY PHILLIPS Facility: [facility]:[place] : 1945 Planned Disposition: Half-Way Facility Anticipated Discharge Date: 04/21/19 Discharge Date: Expected LOS: 2 Initial Reviewer: [id number] Initial Review Date: 04/18/2019 Generated: 04/29/19 8:33 am Comments DCP- Discharge Planning Updated by [id number]: Brandin Garcia on 04/29/19 6:[address] Patient Name: ABBY PHILLIPS Encounter No: [id number] : 1945 Primary Insurance: [facility] MEDICARE SOLUTIONS Anticipated DC Date: 04-21-2019 Planned Disposition: Half-Way Facility External Planned Provider:[facility] [place] DCP follow-up note: CM REVIEWED CHART, PT DID PARTICIPATE WITH THERAPY ON 04-27-19 AND 04-28-19. PT HAS DEMONSTRATED ABILITY TO TRANSFER AND SIT IN CHAIR FOR THREE OR MORE HOURS. CM FAXED REFERRAL UPDATE TO [facility] AT [phone]. [facility] [place] [phone]. CM WAITING ADMISSION DETERMINATIONS FROM [facility] AND [facility] IF EITHER FACLITY WILL ACCEPT, CM WILL REQUEST CHANGE OF DIALYSIS UNIT. PT'S INSURANCE ALSO REQUIRES PRIOR AUTHORIZATION FOR REHAB PLACEMENT. SELENA Escobedo DCP- Discharge Planning Updated by [id number]: Brandin Garcia on 04/28/19 6:[address] Patient Name: ABBY PHILLIPS Encounter No: [id number] : 1945 Primary Insurance: [facility] MEDICARE SOLUTIONS Anticipated DC Date: 04-21-2019 Planned Disposition: Half-Way Facility External Planned Provider[place] [facility] [place] [facility] [place] B[place] DCP follow-up note: CM REVIEWED CHART, PT DID PARTICIPATE WITH THERAPY ON 04-27-19. PT DID SIT UP IN CHAIR FOR THREE OR MORE HOURS. CM FAXED REFERRAL UPDATE TO [facility] AT [phone]. [facility] [phone]. CM WAITING ADMISSION DETERMINATIONS FROM [facility] IF EITHER FACLITY WILL ACCEPT, CM WILL REQUEST CHANGE OF DIALYSIS UNIT. PT'S INSURANCE ALSO REQUIRES PRIOR AUTHORIZATION FOR REHAB PLACEMENT. Brandin Garcia CASE MANAGEMENT DCP- Discharge Planning Updated by [id number]: Brandin Garcia on 04/27/19 11:[address] Patient Name: ABBY PHILLIPS Encounter No: [id number] : 1945 Primary Insurance: [facility] MEDICARE SOLUTIONS Anticipated DC Date: 04-21-2019 Planned Disposition: Half-Way Facility External Planned Provider: [facility] [place] B[place] DCP follow-up note: CM REVIEWED CHART, PT DID NOT PARTICIPATE WITH THERAPY ON 04-26-19. CM MET WITH PT IN ROOM TO DISCUSS DISCHARGE PLANNING AND NEEDS. PT DOES NOT WANT CUSTODIAL CARE OR HOSPICE. PT INSISTS THAT HE WANTS REHAB SERVICES. CM EXPLAINED THAT PT HAS TO PARTICIPATE FULLY WITH THERAPY EACH TIME OFFERED INSURANCE WILL NOT PAY FOR REHAB SERVICES WITHOUT PARTICIPATION WITH OFFERED THERAPY. PT REPORTS UNDERSTANDING. PT PROMISES TO PARTICIPATE WITH THERAPY SERVICES AND UNDERSTANDS THAT HE MUST SIT UP IN CHAIR FOR THREE OR MORE HOURS TO SHOW HE CAN GO TO OUTPATIENT DIALYSIS. CM RECEIVED CALL FROM MATILDA OF [facility] WHO WILL FOLLOW, BUT WILL ONLY CONSIDER IF PT IS PARTICIPATING WITH THERAPY. CM TO FAX REFERRAL UPDATE STO [facility] AT [phone]. AND [facility] [phone], ONCE NEW THERAPY NOTES ARE DOCUMENTED ON 04-27. CM WAITING ADMISSION DETERMINATIONS FROM [facility] IF EITHER FACLITY WILL ACCEPT, CM WILL REQUEST CHANGE OF DIALYSIS UNIT. PT'S INSURANCE ALSO REQUIRES PRIOR AUTHORIZATION FOR REHAB PLACEMENT. SELENA Escobedo MANAGEMENT DCP- Discharge Planning Updated by [id number]: Brandin Garcia on 04/26/19 8:[address] Patient Name: ABBY PHILLIPS Encounter No: [id number] : 1945 Primary Insurance: [facility] MEDICARE SOLUTIONS Anticipated DC Date: 04-21-2019 Planned Disposition: Half-Way Facility External Planned Provider:[facility] OR [facility] [place], MEDICARE REHAB BED DCP follow-up note: CM FAXED REFERRALUPDATE TO [facility] AT [phone]. CM FA[facility]ED REFERRAL [facility] TO [facility] AT [phone]. CM TO DISCUSS WITH REHAB TODAY THAT PT NEEDS TO HAVE DEMONSTRATED ABILITY TO SIT FOR THREE OR MORE HOURS IN CHAIR FOR OUTPATIENT DIALYSIS. CM WAITING ADMISSION DETERMINATIONS FROM [facility] AND [facility]. Brandin Garcia CASE MANAGEMENT DCP- Discharge Planning Updated by [id number]: Brandin Garcia on 04/25/19 1:[address] Patient Name: ABBY PHILLIPS Encounter No: [id number] : 1945 Primary Insurance: [facility] MEDICARE SOLUTIONS Anticipated DC Date: 04-21-2019 Planned Disposition: Half-Way Facility External Planned Provider: [facility] OR [facility] [place], MEDICARE REHAB BED DCP follow-up note: CM RECEIVED CALL FROM CHARLEY PHILLIPS, PT'S SON, WHO ASKED WHAT IS TAKING SO LONG TO GET PT INTO REHAB IN [place]. CM EXPLAINED PLACEMENT PROCESS, INSURANCE APPROVAL TIME FRAME AND ALSO THE PROCESS OF HAVING TO GET ACCEPTING DIALYSIS UNIT IF CM CAN GET FACILITY TO ACCEPT PT. CHARLEY REPORTS UNDERSTANDING. CM CALLED [facility], , SPOKE TO SYD WHO INFORMED CM THAT SHE DID NOT GET THE REFERRAL. CM CONFIRMED FAX NUMBER, REVIEWED AND FOUND FAX CONFIRMATION FROM THURSDAY. CM FAXED REFERRAL AND UPDATE TO [facility] AT [phone]. CM SPOKE PRASH[facility] OF [facility], , SHE WILL CALL [facility] AND GET UPDATE SHE HAS NOT "HEARD A WORD". CM FAXED REF[facility]AL [facility] TO [facility] AT [phone]. CM WAITING ADMISSION DETERMINATIONS FROM [facility] Brandin Garcia, CASE MANAGEMENT DCP- Discharge Planning Updated by [id number]: Brandin Garcia on 04/22/19 10:[address] Patient Name: ABBY PHILLIPS Encounter No: [id number] : 1945 Primary Insurance: [facility] MEDICARE SOLUTIONS Anticipated DC Date: 04-21-2019 Planned Disposition: Half-Way Facility External Planned Provider: [facility] [place], MEDICARE REHAB BED DCP follow-up note: CM SPOKE TO PT IN ROOM REGARDING DISCHARGE PLANNING. PT WILL GO TO REHAB IN [place] SO HE WILL BE CLOSE TO HIS SON. PT ASKED CM TO HURRY UP HE IS TIRED OF BEING IN THE HOSPITAL. CM EXPLAINED TO PT THAT IF HE WOULD HAVE DECIDED SOONER, CM WOULD HAVE ALREADY BEEN WORKING ON REHAB PLACEMENT. PT SIGNED CONSENT FOR [facility] SUGGESTED BY HIS SON AND FOR ANY [facility] RE[facility]AB IN [place]. CM EXPLAINED TO PT THAT HIS INSURANCE MAY TAKE SEVERAL DAYS TO APPROVE OR DECLINE REHAB SERVICES AND THAT CM WILL HAVE TO FIND A FACILITY THAT WILL TRANSPORT TO DIALYSIS AND IF ALL OF THAT IS DONE, CM WILL HAVE TO REQUEST A NEW DIALYSIS UNIT. PT REPORTS UNDERSTANDING. CM CALLED [facility], , SPOKE TO KAVIN WHO WILL SCREEN FOR ADMISSION. CM FAXED REFERRAL TO [facility] AT [phone]. CM NOTIFIED [facility] , [place]FERR[place]. CM [place]ED [facility] [facility] [place] [facility] AT [phone]. CM WAITING ADMISSION DETERMINATIONS FROM [facility] Brandin Garcia, CASE MANAGEMENT DCP- Discharge Planning Updated by [id number]: Brandin Garcia on 04/21/19 4:[address] Patient Name: ABBY PHILLIPS Encounter No: [id number] : 1945 Primary Insurance: [facility] MEDICARE SOLUTIONS Anticipated DC Date: 04-21-2019 Planned Disposition: Half-Way Facility External Planned Provider: [facility] OTHER [facility] [place] DCP follow-up note: CM RECEIVED CALL FROM CHARLEY PHILLIPS, PT'S SON, WHO REPORTS THAT HE HAS TALKED TO PT VIA PHONE AND PT IS NOW AGREEING TO GO TO [facility] [place], CLOSE TO HIS SON. CM ATTEMPTED TO SEE PT WHO WAS OUT OF ROOM AT APPROXIMATELY 1345 HOURS. CM WILL SPEAK TO PT SOON POSSIBLE REGARDING [facility] RE[facility] IN [place] AND SEND REFERRALS IF PT WILL SIGN THE CONSENT. Brandin Garcia, CASE MANAGEMENT DCP- Discharge Planning Updated by [id number]: Brandin Garcia on 04/21/19 11:[address] Patient Name: ABBY PHILLIPS Encounter No: [id number] : 1945 Primary Insurance: [facility] MEDICARE SOLUTIONS Anticipated DC Date: 04-21-2019 Planned Disposition: Left Against Medical Advice DCP follow-up note: CM SPOKE TO BEDSIDE NURSE WHO REPORTS PT'S SISTER, JORGE, CALLED AND STATES SHE WILL NOT BE PICKING PT UP FOR TRANSPORT HOME. CM MET WITH PT IN ROOM TO DISCUSS DISCHARGE PLANNING AND NEEDS. PT REPORTS STILL PLANNING TO LEAVE WHEN HE FINDS A RIDE. CM EXPLAINED THAT PT'S FAMILY MEMBERS ARE CALLING AND INFORMING HOSPITAL STAFF THEY ARE NOT PICKING UP PT. PT STATES HE HAS FRIENDS THAT ARE GOING TO HELP. CM PROVIDED PT WITH MEDICARE WEBSITE RESULTS FOR [facility] RE[facility]ABS WITHIN 50 MILES OF HIS HOME. CM EXPLAINED THAT [facility] WILL NOT ACCEPT PT BACK AND THAT IF PT CHANGES HIS MIND AND DECIDES TO GO TO REHAB, CM WILL NEED PT'S TOP TWO SELECTIONS AND SIGNATURE ON THE CHOICE FORM. IMPORTANT MESSAGE FROM MEDICARE PROVIDED AND EXPLAINED. PT ASKED CM TO CALL ADAM SANCHES, PHARMACIST AT [facility] TO HAVE HER , JOHN SANCHES, CALL PT. CM CALLED AND WAS ADVISED BY ADAM THAT AGUSTIN SPOKE TO PT YESTERDAY AND SHE WILL LET HER KNOW THAT PT WANTS TO TALK TO HIM AGAIN. CM STILL REFUSING [facility] FACLITY PLACEMENT. CM WAITING ON PT TO DEVELOP TRANSPORTATION HOME. IF TRANSPORTATION IS VERIFIED, CALL [facility], , WILL HAS AGREED TO ARRANGE PORTABLE OXGYEN TO HOSPITAL FOR PT TO LEAVE HOSPITAL. CM TO CONTINUE TO FOLLOW AND ASSIST NEEDED. Wet Process Operator: Brandin Garcia DCP- Discharge Planning Updated by [id number]: Brandin Garcia on 04/21/19 8:[address] Patient Name: ABBY PHILLIPS Encounter No: [id number] : 1945 Primary Insurance: [facility] MEDICARE SOLUTIONS Anticipated DC Date: 04-21-2019 Planned Disposition: Left Against Medical Advice DCP follow-up note: HARSHAL SPOKE TO HERIBERTO SANCHES REGARDING PT'S DISCHARGE PLAN. TREATMENT TEAM CONCERNED THAT PT DOES NOT HAVE SAFE DISCHARGE PLAN. CM MET WITH HERIBERTO SANCHES WITH PT IN ROOM. PT INSISTS THAT HE WILL GO HOME, JOHN SANCHES, , WILL PICK HIM UP. PT REPORTS ALEXSANDRA LOPEZ, A FRIEND FROM [facility] WILL ASSIST WITH CARING FOR PT IN HOME AND ASSIST WITH GETTING TO AND FROM DIALYSIS. PT REPORTS HE NORMALLY DRIVES HIMSELF TO AND FROM DIALYSIS AND IS ABLE TO TRANSFER HIMSELF TO A WHEELCHAIR, GET TO HIS CAR, GET THE WHEELCHAIR INTO THE TRUCK OF THE CAR AND THEN WALK TO AND GET INTO THE DRIVERS SEAT HOLDING ON TO THE CAR. PT REPORTS HAVING ELECTRIC AND MANUAL WHEELCHAIR AND IS ABLE TO TRANSFER HIMSELF FROM BED TO CHAIR AND CHAIR TO BED. PT DOES NOT KNOW THE NUMBER TO HIS FRIEND ALEXSANDRA, TO VERIFY HE WILL ASSIST AFTER DISCHARGE. PT REPORTS HIS SISTER HANDY LIVES IN HIS HOUSE AND HAS FOR FOUR MONTHS. CM ADVISED THAT FAMILY INFORMED STAFF HERE THAT PT NEEDS NURSING REHAB. PT REPORTS THAT HIS FAMILY IS WANTING TO KEEP HIM AWAY AND IN THE PRISON. HERIBERTO SANCHES ADVISED THAT PT MUST HAVE A SAFE AND VERIFIABLE PLAN TO DISCHARGE HOME. CM ATTEMPTED TO CALL JOHN SANCHES, ; THERE WAS NO ANSWER AND NO MESSAGE MACHINE. CM CALLED [facility], , SPOKE TO ORDERING MACHINE OPERATOR [facility] WHO INFORMED CM THAT THEY CAN DELIVER PORTABLE OXYGEN TO PT'S ROOM FOR DISCHARGE IF NEEDED. HARSHAL SPOKE TO PT IN ROOM, HERIBERTO SANCHES WAS IN ROOM SPEAKING TO PT. PT STATES HE IS LEAVING "AMA". HERIBERTO SANCHES INFORMED PT THAT PT MUST HAVE A PERSON TO VERIFY THEY ARE TRANSPORTING PRIOR TO ANY AMA FORMS BEING PRESENTED. CM ADVISED PT IF HE IS ABLE TO VERIFY TRANSPORATATION BY CM SPEAKING TO THAT PERSON AND THEY AGREE TO PRINT CUTTER PT, CM WILL ASK [facility] TO DELIVER PORTABLE OXYGEN TO ROOM. CM ASKED THAT IF PT CHANGES HIS MIND AND DECIDES TO GO TO [facility] RE[facility], TO PLEASE NOTIFY CM AND CM WILL BE GLAD TO ASSIST WITH PLACEMENT. PT DECLINED. CM WAITING ON PT TO DEVELOP TRANSPORTATION HOME. IF TRANSPORTATION IS VERIFIED, CALL [facility], , WILL HAS AGREED TO ARRANGE PORTABLE OXGYEN TO HOSPITAL FOR PT TO LEAVE HOSPITAL. CM TO CONTINUE TO FOLLOW AND ASSIST NEEDED. Wet Process Operator: Brandin Garcia DCP- Discharge Planning Updated by [id number]: Brandin Garcia on 04/20/19 1:[address] Patient Name: ABBY PHILLIPS Encounter No: [id number] : 1945 Primary Insurance: [employer] MEDICARE SOLUTIONS Anticipated DC Date: 04-19-2019 Planned Disposition: Home DCP follow-up note: CM MET WITH PT IN ROOM AND ENCOURAGED PT TO GO TO REHAB PRIOR TO DISCHARGE HOME. PT CONTINUES TO REFUSE AND REPORTS HIS SISTER WILL PICK HIM UP FOR DISCHARGE HOME. PT STATES HE MAY NEED OXYGEN FROM [facility] AGAIN TO GO HOME. CM EXPLAINED THAT IF HIS SISTER IS PICKING HIM UP AND SHE IS STAYING WITH PT IN PT'S HOME, SHE SHOULD BRING OXYGEN WITH HER. PT WILL REQUEST HIS SISTER BRING OXYGEN WITH HER. CM RECEIVED CALL FROM MIRIAM GORDON, , WHO INFORMED CM THAT PT HAS BEEN CALLING STATING HE IS GOING TO BE DISCHARGED TODAY AND NEEDS A RIDE HOME. JORGE STATES PT NEEDS TO GO BACK TO NURSING FACILITY FOR REHAB AND NOT HOME. CM EXPLAINED THAT CM CANNOT MAKE PT DO SOMETHING AGAINST PT'S WILL AND THAT IF PT IS NOT DEEMED INCOMPETENT BY A PHYSICIAN OR COURT, PT CAN MAKE BAD DECISIONS FOR HIMSELF. CM EXPLAINED HOW TO FILE FOR GUARDIANSHIP OF A PERSON AND THAT THIS WOULD HAVE TO BE GRANTED FOR ANYONE TO MAKE PT DO SOMETHING AGAINST HIS WILL. JORGE REPORTS UNDERSTANDING. PT PLANS TO DISCHARGE HOME WITH HIS SISTER, PT REPORTS HIS SISTER WILL PICK HIM UP FOR DISCHARGE HOME. PT DECLINES PRISON, [facility] OR REHAB PLACEMENT. PATIENT IS NOT APPROPRIATE FOR HOME HEALTH PER [facility]. Wet Process Operator: Brandin Garcia DCP- Discharge Planning Updated by [id number]: Brandin Garcia on 04/19/19 3:[address] Patient Name: ABBY PHILLIPS Admission Status: ER Accout number: [id number] Admission Date: 04-19-2019 : 1945 Admission Diagnosis: Attending: SAMUEL COOPER Current LOS: 1 Anticipated DC Date: 04-19-2019 Planned Disposition: Home Primary Insurance: [facility] MEDICARE SOLUTIONS Discharge Planning Comments: CM MET WITH PT IN ROOM TO DISCUSS DISCHARGE PLANNING AND NEEDS. PT REPORTS LIVING AT HOME DEPENDENTLY WITH HIS SISTER HANDY WHO IS STAYING WITH PT IN PT'S HOME TO CARE FOR PT. . PT HAS [facility] LIFT AND WHEELCHAIR WELL HOME AND PORTABLE OXYGEN FROM [facility]. PT HAS NO OUTSIDE SERVICES ASSISTING IN THE HOME [facility] DECLINED TO ADMIT HIM AND TOLD HIM HE HAS TO BE DOING BETTER FOR HOME HEALTH SERVICES. CM DISCUSSED AVAILABILITY OF HOME HEALTH, REHAB SERVICES AND MEDICAL EQUIPMENT. PT DECLINED PRISON OR REHAB PLACEMENT. PT DENIES DISCHARGE NEEDS, REPORTS HIS SISTER HANDY WILL PICK HIM UP FOR DISCHARGE HOME. PT REPORTS MISSING DIALYSIS BECAUSE HE WENT ON THURSDAY AND THEY DID NOT HAVE A SLING TO USE ON THE LIFT TO PICK HIM UP AT THE DIALYSIS UNIT. PT STATES HE HAS A SLING AT HOME AND FORGOT ABOUT IT. PT REPORTS HIS SISTER USES THE [employer] LIFT TO GET HIM TO THE WHEELCHAIR AND THEY WILL LEAVE THE SLING UNDER HIM FOR DIALYSIS TO USE FROM NOW ON. CHOICE SIGNED FOR [facility] TO VERIFY WITH THEM THAT THEY WILL NOT SEE PT. CM CALLED [facility], , LEFT MESSAGE ASKING FOR THE NURSE TO CALL CM BACK. PT PLANS TO DISCHARGE HOME WITH HIS SISTER, PT REPORTS HIS SISTER WILL PICK HIM UP FOR DISCHARGE HOME. PT DECLINES PRISON, [facility] OR REHAB PLACEMENT. Wet Process Operator: Brandin Garcia Appended by Brandin Garcia on 04/19/2019 16:56 CDT: CM RECEIVED CALL FROM JERICA OF [facility] WHO INFORMED CM THAT THEY DID GO FOR THE HOME HEALTH ADMIT AND INFORMED PT AND FAMILY THAT PT NEEDS REHAB AND IS NOT APPROPRIATE FOR HOME HEALTH SERVICES AT THIS TIME. PT PLANS TO DISCHARGE HOME WITH HIS SISTER, PT REPORTS HIS SISTER WILL PICK HIM UP FOR DISCHARGE HOME. PT DECLINES PRISON, [facility] OR REHAB PLACEMENT. Wet Process Operator: Brandin Garcia DCPIA - Discharge Planning Initial Assessment Updated by [id number]: Brandin Garcia on 04/22/19 11:13 am * Is the patient Alert and Oriented? Yes * How many steps to enter\\exit or inside your home? NONE * PCP DR. ARACELI SIDHU * [facility] * Preadmission Environment Home with Family * ADLs Partial Dependent * Partial ADLs (Assistance needed) Ambulation Bathing Dressing Medication Management Toileting Transfers * Equipment [employer] Lift Oxygen Wheelchair * Other Equipment HOME AND PORTABLE OXYGEN, [facility] * List name and contact numbers for known caregivers / representatives who currently or will assist patient after discharge: HANDY JONES, SISTER [phone] JORGE GORDON, SISTER, CHARLEY PHILLIPS, SON, * Verbal permission to speak to the caregivers and representatives has been obtained from the patient. Yes * Community resources currently utilized None * Please name any agencies selected above. PT HAD INTAKE WITH [facility] FROM [facility], ACCORDING TO PT, THEY DECLINED T PROVIDE SERVICES UNTIL HE WAS "DOING BETTER" OUTPATIENT DIALYSIS , [facility], [facility], [facility]. PT REPORTS HE HAS BEEN DRIVING HIMSELF. * Additional services required to return to the preadmission environment? No * Can the patient safely return to the preadmission environment? Yes * Has this patient been hospitalized within the prior 30 days at any hospital? Yes Coverage Notice Reviewer: [id number] Skylar Augustin Notice Issued Date-Time: 04/19/2019 9:30 Notice Type: Medicare Outpatient Observation Notice Notice Delivered To: Patient Relationship to Patient: Self Evaluation Assistant Name: Delivery Method: HAND - Hand Delivered Anusha Days: Prior Verbal Notification: Recipient Understood Notice: Yes Recipient Signature: Yes Med Rec Note Co-signed by Attending: Coverage Notice Comment: Reviewer: [id number] Garcia Notice Issued Date-Time: 04/19/2019 12:15 Notice Type: Patient Choice Letter Notice Delivered To: Patient Relationship to Patient: Evaluation Assistant Name: Delivery Method: HAND - Hand Delivered Anusha Days: Prior Verbal Notification: Recipient Understood Notice: Yes Recipient Signature: Yes Med Rec Note Co-signed by Attending: Coverage Notice Comment: [facility] Reviewer: [id number] Skylar Garcia Notice Issued Date-Time: 04/21/2019 11:45 Notice Type: IM Discharge Notice Notice Delivered To: Patient Relationship to Patient: Evaluation Assistant Name: Delivery Method: HAND - Hand Delivered Anusha Days: Prior Verbal Notification: Recipient Understood Notice: Yes Recipient Signature: Yes Med Rec Note Co-signed by Attending: Coverage Notice Comment: Reviewer: [id number] Garcia Notice Issued Date-Time: 04/22/2019 16:05 Notice Type: Patient Choice Letter Notice Delivered To: Patient Relationship to Patient: Evaluation Assistant Name: Delivery Method: HAND - Hand Delivered Anusha Days: Prior Verbal Notification: Recipient Understood Notice: Yes Recipient Signature: Yes Med Rec Note Co-signed by Attending: Coverage Notice Comment: [facility]. Last DP export: 04/28/19 6:55 Patient Name: ABBY PHILLIPS Page [id number] at 0733 All edits/amendments must be made on the electronic document DICTATION DATE: 04/29/19732 DELIVERY REP: APRIL 04/29/19732 RPT#: [id number] DC DATE: STATUS: ADM IN [facility] [address] [place] [address] END OF REPORT
[2019-04-29 08:58] VITALS: BP 161/60
--- NOTE | 2019-04-29 09:15 | NUR ---
PT PEG TUBE DRESSING SOILED WITH GRAYISH/GREEN TINGED DRAINAGE WITH ODOR. CLEANSED WITE WITH WOUND CLEANSER AND PLACED ON NREW DRESSING. PEG TUBE CLOGGED WITH SAME DRAINAGE AND FLUSHED WITH 40ML OF WATER. PT WANTING TO NEW O2 TUBING AND MEPILEX PLACED ON BUTTOCK. CHANGED O2 TUBING AND PT HAS A STAGE 2 TO HIS LEFT BUTTOCK AND STAGE 3 TO COCCYX PLACED MEPILEX.
--- NOTE | 2019-04-29 11:25 | NUR ---
PT DEMANDING TO GET BACK IN BED. CALLED FRANK FROM [facility] AND HE STATES HE WILL LET THE OTHER [facility] KNOW. I VERBALIZED UNDERSTANDING.
[2019-04-29 12:00] VITALS: BP 155/50
--- NOTE | 2019-04-29 12:17 | NUR ---
[facility] STATES PT TRIED TO HIT HER DURING TRANSFER BACK TO BED.
--- NOTE | 2019-04-29 12:27 | NUR ---
I have reviewed this patient and I concur with the Shift Assessment completed by the Licensed Practical Nurse today this shift.
--- NOTE | 2019-04-29 14:49 | MORECARE ---
CASE MANAGEMENT DISCHARGE SUMMARY PATIENT: ABBY PHILLIPS UNIT: [id number] ADM DATE: 04/19/19 AGE: 73 : [birth year] SEX: M ROOM/BED: D.4789 AUTHOR: BYRON,DOC PHYSICIAN: REFERRING PHYSICIAN: SAMUEL COOPER MD DATE OF SERVICE: 04/29/19 Discharge Plan Patient Name: ABBY PHILLIPS Facility: [facility]:[place] : 1945 Planned Disposition: Shelter Facility Anticipated Discharge Date: 04/21/19 Discharge Date: Expected LOS: 2 Initial Reviewer: [id number] Initial Review Date: 04/18/2019 Generated: 04/29/19 3:49 pm Comments DCP- Discharge Planning Updated by [id number]: Brandin Garcia on 04/29/19 6:[address] Patient Name: ABBY PHILLIPS Encounter No: [id number] : 1945 Primary Insurance: [facility] MEDICARE SOLUTIONS Anticipated DC Date: 04-21-2019 Planned Disposition: Shelter Facility External Planned Provider:[facility] OR [facility] [place], MEDICARE REHAB BED DCP follow-up note: CM REVIEWED CHART, PT DID PARTICIPATE WITH THERAPY ON 04-27-19 AND 04-28-19. PT HAS DEMONSTRATED ABILITY TO TRANSFER AND SIT IN CHAIR FOR THREE OR MORE HOURS. CM FAXED REFERRAL UPDATE TO [facility] AT [phone]. AND [facility] AT [phone]. CM WAITING ADMISSION DETERMINATIONS FROM [facility] AND [facility]. IF EITHER FACLITY WILL ACCEPT, CM WILL REQUEST CHANGE OF DIALYSIS UNIT. PT'S INSURANCE ALSO REQUIRES PRIOR AUTHORIZATION FOR REHAB PLACEMENT. SELENA Escobedo DCP- Discharge Planning Updated by [id number]: Brandin Garcia on 04/28/19 6:[address] Patient Name: ABBY PHILLIPS Encounter No: [id number] : 1945 Primary Insurance: [facility] MEDICARE SOLUTIONS Anticipated DC Date: 04-21-2019 Planned Disposition: Shelter Facility External Planned Provider: [facility] IN [place], MEDICARE REHAB BED DCP follow-up note: CM REVIEWED CHART, PT DID PARTICIPATE WITH THERAPY ON 04-27-19. PT DID SIT UP IN CHAIR FOR THREE OR MORE HOURS. CM FAXED REFERRAL UPDATE TO [facility] AT [phone]. AND [facility] AT [phone]. CM WAITING ADMISSION DETERMINATIONS FROM [facility] AND [facility]. IF EITHER FACLITY WILL ACCEPT, CM WILL REQUEST CHANGE OF DIALYSIS UNIT. PT'S INSURANCE ALSO REQUIRES PRIOR AUTHORIZATION FOR REHAB PLACEMENT. Brandin Garcia CASE MANAGEMENT DCP- Discharge Planning Updated by [id number]: Brandin Garcia on 04/27/19 11:[address] Patient Name: ABBY PHILLIPS Encounter No: [id number] : 1945 Primary Insurance: [facility] MEDICARE SOLUTIONS Anticipated DC Date: 04-21-2019 Planned Disposition: Shelter Facility External Planned Provider: [facility] IN [place], MEDICARE REHAB BED DCP follow-up note: CM REVIEWED CHART, PT DID NOT PARTICIPATE WITH THERAPY ON 04-26-19. CM MET WITH PT IN ROOM TO DISCUSS DISCHARGE PLANNING AND NEEDS. PT DOES NOT WANT [facility]PC CARE OR HOSPICE. PT INSISTS THAT HE WANTS REHAB SERVICES. CM EXPLAINED THAT PT HAS TO PARTICIPATE FULLY WITH THERAPY EACH TIME OFFERED INSURANCE WILL NOT PAY FOR REHAB SERVICES WITHOUT PARTICIPATION WITH OFFERED THERAPY. PT REPORTS UNDERSTANDING. PT PROMISES TO PARTICIPATE WITH THERAPY SERVICES AND UNDERSTANDS THAT HE MUST SIT UP IN CHAIR FOR THREE OR MORE HOURS TO SHOW HE CAN GO TO OUTPATIENT DIALYSIS. CM RECEIVED CALL FROM MATILDA OF [facility] WHO WILL FOLLOW, BUT WILL ONLY CONSIDER IF PT IS PARTICIPATING WITH THERAPY. CM TO FAX REFERRAL UPDATE ST[facility] AT [phone]. AND [facility] AT [phone], ONCE NEW THERAPY NOTES ARE DOCUMENTED ON 04-27. CM WAITING ADMISSION DETERMINATIONS FROM [facility] AND [facility]. IF EITHER FACLITY WILL ACCEPT, CM WILL REQUEST CHANGE OF DIALYSIS UNIT. PT'S INSURANCE ALSO REQUIRES PRIOR AUTHORIZATION FOR REHAB PLACEMENT. SELENA Escobedo MANAGEMENT DCP- Discharge Planning Updated by [id number]: Brandin Garcia on 04/26/19 8:[address] Patient Name: ABBY PHILLIPS Encounter No: [id number] : 1945 Primary Insurance: [facility] MEDICARE SOLUTIONS Anticipated DC Date: 04-21-2019 Planned Disposition: Shelter Facility External [facility] [place], MEDICARE REHAB BED DCP follow-up note: CM FAXED REFERRALUPDATE TO [facility] AT [phone]. CM FA[facility] AT [phone]. CM TO DISCUSS WITH REHAB TODAY THAT PT NEEDS TO HAVE DEMONSTRATED ABILITY TO SIT FOR THREE OR MORE HOURS IN CHAIR FOR OUTPATIENT DIALYSIS. CM WAITING ADMISSION DETERMINATIONS FROM [facility] AND [facility]. Brandin Garcia CASE MANAGEMENT DCP- Discharge Planning Updated by [id number]: Brandin Garcia on 04/25/19 1:[address] Patient Name: ABBY PHILLIPS Encounter No: [id number] : 1945 Primary Insurance: [facility] MEDICARE SOLUTIONS Anticipated DC Date: 04-21-2019 Planned Disposition: Shelter Facility External [facility] IN [place], MEDICARE REHAB BED DCP follow-up note: CM RECEIVED CALL FROM CHARLEY PHILLIPS, PT'S SON, WHO ASKED WHAT IS TAKING SO LONG TO GET PT INTO REHAB IN [place]ENTER. CM EXPLAINED PLACEMENT PROCESS, INSURANCE APPROVAL TIME FRAME AND ALSO THE PROCESS OF HAVING TO GET ACCEPTING DIALYSIS UNIT IF CM CAN GET FACILITY TO ACCEPT PT. CHARLEY REPORTS UNDERSTANDING. CM CALLED [facility], , SPOKE TO SYD WHO INFORMED CM THAT SHE DID NOT GET THE REFERRAL. CM CONFIRMED FAX NUMBER, REVIEWED AND FOUND FAX CONFIRMATION FROM THURSDAY. CM FAXED REFERRAL AND UPDATE TO [facility] AT [phone]. CM SPOKE [facility] OF [facility], , SHE WILL CALL [facility] AND GET UPDATE SHE HAS NOT "HEARD A WORD". CM FA[facility]ED [facility] AT [phone]. CM WAITING ADMISSION DETERMINATIONS FROM [facility] AND [facility]. Brandin Garcia, CASE MANAGEMENT DCP- Discharge Planning Updated by [id number]: Brandin Garcia on 04/22/19 10:[address] Patient Name: ABBY PHILLIPS Encounter No: [id number] : 1945 Primary Insurance: [facility] MEDICARE SOLUTIONS Anticipated DC Date: 04-21-2019 Planned Disposition: Shelter Facility External Planned Provider: [facility] [place], MEDICARE REHAB BED DCP follow-up note: CM SPOKE TO PT IN ROOM REGARDING DISCHARGE PLANNING. PT WILL GO TO REHAB IN CENTER SO HE WILL BE CLOSE TO HIS SON. PT ASKED CM TO HURRY UP HE IS TIRED OF BEING IN THE HOSPITAL. CM EXPLAINED TO PT THAT IF HE WOULD HAVE DECIDED SOONER, CM WOULD HAVE ALREADY BEEN WORKING ON REHAB PLACEMENT. PT SIGNED CONSENT FOR [facility] SUGGESTED BY HIS SON AND FOR ANY [facility] IN [place]. CM EXPLAINED TO PT THAT HIS INSURANCE MAY TAKE SEVERAL DAYS TO APPROVE OR DECLINE REHAB SERVICES AND THAT CM WILL HAVE TO FIND A FACILITY THAT WILL TRANSPORT TO DIALYSIS AND IF ALL OF THAT IS DONE, CM WILL HAVE TO REQUEST A NEW DIALYSIS UNIT. PT REPORTS UNDERSTANDING. CM CALLED [facility], , SPOKE TO KAVIN WHO WILL SCREEN FOR ADMISSION. [facility] AT [phone]. CM NOTIFIED [facility] OF [facility], , OF REFERRAL. CM FAXED REFERRAL FOR [facility] TO [facility] AT [phone]. CM WAITING ADMISSION DETERMINATIONS FROM [facility] AND [facility]. Brandin Garcia, CASE MANAGEMENT DCP- Discharge Planning Updated by [id number]: rBandin Garcia on 04/21/19 4:[address] Patient Name: ABBY PHILLIPS Encounter No: [id number] : 1945 Primary Insurance: [facility] MEDICARE SOLUTIONS Anticipated DC Date: 04-21-2019 Planned Disposition: Shelter Facility External Planned Provider: [facility] [place] DCP follow-up note: CM RECEIVED CALL FROM CHARLEY PHILLIPS, PT'S SON, WHO REPORTS THAT HE HAS TALKED TO PT VIA PHONE AND PT IS NOW AGREEING TO GO TO [facility] [place], CLOSE TO HIS SON. CM ATTEMPTED TO SEE PT WHO WAS OUT OF ROOM AT APPROXIMATELY 1345 HOURS. CM WILL SPEAK TO PT SOON POSSIBLE REGARDING [facility] IN [place] AND SEND REFERRALS IF PT WILL SIGN THE CONSENT. Brandin Garcia, CASE MANAGEMENT DCP- Discharge Planning Updated by [id number]: Brandin Garcia on 04/21/19 11:[address] Patient Name: ABBY PHILLIPS Encounter No: [id number] : 1945 Primary Insurance: [facility] MEDICARE SOLUTIONS Anticipated DC Date: 04-21-2019 Planned Disposition: Left Against Medical Advice DCP follow-up note: CM SPOKE TO BEDSIDE NURSE WHO REPORTS PT'S SISTER, JORGE, CALLED AND STATES SHE WILL NOT BE PICKING PT UP FOR TRANSPORT HOME. CM MET WITH PT IN ROOM TO DISCUSS DISCHARGE PLANNING AND NEEDS. PT REPORTS STILL PLANNING TO LEAVE WHEN HE FINDS A RIDE. CM EXPLAINED THAT PT'S FAMILY MEMBERS ARE CALLING AND INFORMING HOSPITAL STAFF THEY ARE NOT PICKING UP PT. PT STATES HE HAS FRIENDS THAT ARE GOING TO HELP. CM PROVIDED PT WITH MEDICARE WEBSITE RESULTS FOR [facility] RE[facility]ABS WITHIN 50 MILES OF HIS HOME. CM EXPLAINED THAT [facility] WILL NOT ACCEPT PT BACK AND THAT IF PT CHANGES HIS MIND AND DECIDES TO GO TO REHAB, CM WILL NEED PT'S TOP TWO SELECTIONS AND SIGNATURE ON THE CHOICE FORM. IMPORTANT MESSAGE FROM MEDICARE PROVIDED AND EXPLAINED. PT ASKED CM TO CALL ADAM SANCHES, PHARMACIST AT [facility] TO HAVE HER , JOHN SANCHES, CALL PT. CM CALLED AND WAS ADVISED BY ADAM THAT AGUSTIN SPOKE TO PT YESTERDAY AND SHE WILL LET HER KNOW THAT PT WANTS TO TALK TO HIM AGAIN. CM STILL REFUSING [facility] FACLITY PLACEMENT. CM WAITING ON PT TO DEVELOP TRANSPORTATION HOME. IF TRANSPORTATION IS VERIFIED, CALL [facility], , WILL HAS AGREED TO ARRANGE PORTABLE OXGYEN TO HOSPITAL FOR PT TO LEAVE HOSPITAL. CM TO CONTINUE TO FOLLOW AND ASSIST NEEDED. Science Instructor: Brandin Garcia DCP- Discharge Planning Updated by [id number]: Brandin Garcia on 04/21/19 8:[address] Patient Name: ABBY PHILLIPS Encounter No: [id number] : 1945 Primary Insurance: [facility] MEDICARE SOLUTIONS Anticipated DC Date: 04-21-2019 Planned Disposition: Left Against Medical Advice DCP follow-up note: HARSHAL SPOKE TO HERIBERTO SANCHES REGARDING PT'S DISCHARGE PLAN. TREATMENT TEAM CONCERNED THAT PT DOES NOT HAVE SAFE DISCHARGE PLAN. CM MET WITH HERIBERTO SANCHES WITH PT IN ROOM. PT INSISTS THAT HE WILL GO HOME, JOHN SANCHES, , WILL PICK HIM UP. PT REPORTS ALEXSANDRA LOPEZ, A FRIEND FROM [place] WILL ASSIST WITH CARING FOR PT IN HOME AND ASSIST WITH GETTING TO AND FROM DIALYSIS. PT REPORTS HE NORMALLY DRIVES HIMSELF TO AND FROM DIALYSIS AND IS ABLE TO TRANSFER HIMSELF TO A WHEELCHAIR, GET TO HIS CAR, GET THE WHEELCHAIR INTO THE TRUCK OF THE CAR AND THEN WALK TO AND GET INTO THE DRIVERS SEAT HOLDING ON TO THE CAR. PT REPORTS HAVING ELECTRIC AND MANUAL WHEELCHAIR AND IS ABLE TO TRANSFER HIMSELF FROM BED TO CHAIR AND CHAIR TO BED. PT DOES NOT KNOW THE NUMBER TO HIS FRIEND ALEXSANDRA, TO VERIFY HE WILL ASSIST AFTER DISCHARGE. PT REPORTS HIS SISTER HANDY LIVES IN HIS HOUSE AND HAS FOR FOUR MONTHS. CM ADVISED THAT FAMILY INFORMED STAFF HERE THAT PT NEEDS NURSING REHAB. PT REPORTS THAT HIS FAMILY IS WANTING TO KEEP HIM AWAY AND IN THE SENIOR CARE. HERIBERTO SANCHES ADVISED THAT PT MUST HAVE A SAFE AND VERIFIABLE PLAN TO DISCHARGE HOME. CM ATTEMPTED TO CALL JOHN SANCHES, ; THERE WAS NO ANSWER AND NO MESSAGE MACHINE. CM CALLED [facility], , SPOKE TO [employer] [facility] WHO INFORMED CM THAT THEY CAN DELIVER PORTABLE OXYGEN TO PT'S ROOM FOR DISCHARGE IF NEEDED. HARSHAL SPOKE TO PT IN ROOM, HERIBERTO SANCHES WAS IN ROOM SPEAKING TO PT. PT STATES HE IS LEAVING "AMA". HERIBERTO SANCHES INFORMED PT THAT PT MUST HAVE A PERSON TO VERIFY THEY ARE TRANSPORTING PRIOR TO ANY AMA FORMS BEING PRESENTED. CM ADVISED PT IF HE IS ABLE TO VERIFY TRANSPORATATION BY CM SPEAKING TO THAT PERSON AND THEY AGREE TO STRUCTURAL STEEL WORKER PT, CM WILL ASK [facility] TO DELIVER PORTABLE OXYGEN TO ROOM. CM ASKED THAT IF PT CHANGES HIS MIND AND DECIDES TO GO TO [facility] RE[facility], TO PLEASE NOTIFY CM AND CM WILL BE GLAD TO ASSIST WITH PLACEMENT. PT DECLINED. CM WAITING ON PT TO DEVELOP TRANSPORTATION HOME. IF TRANSPORTATION IS VERIFIED, CALL [facility], , WILL HAS AGREED TO ARRANGE PORTABLE OXGYEN TO HOSPITAL FOR PT TO LEAVE HOSPITAL. CM TO CONTINUE TO FOLLOW AND ASSIST NEEDED. Science Instructor: Brandin Garcia DCP- Discharge Planning Updated by [id number]: Brandin Garcia on 04/20/19 1:[address] Patient Name: ABBY PHILLIPS Encounter No: [id number] : 1945 Primary Insurance: [employer] MEDICARE SOLUTIONS Anticipated DC Date: 04-19-2019 Planned Disposition: Home DCP follow-up note: CM MET WITH PT IN ROOM AND ENCOURAGED PT TO GO TO REHAB PRIOR TO DISCHARGE HOME. PT CONTINUES TO REFUSE AND REPORTS HIS SISTER WILL PICK HIM UP FOR DISCHARGE HOME. PT STATES HE MAY NEED OXYGEN FROM [facility] AGAIN TO GO HOME. CM EXPLAINED THAT IF HIS SISTER IS PICKING HIM UP AND SHE IS STAYING WITH PT IN PT'S HOME, SHE SHOULD BRING OXYGEN WITH HER. PT WILL REQUEST HIS SISTER BRING OXYGEN WITH HER. CM RECEIVED CALL FROM MIRIAM GORDON, , WHO INFORMED CM THAT PT HAS BEEN CALLING STATING HE IS GOING TO BE DISCHARGED TODAY AND NEEDS A RIDE HOME. JORGE STATES PT NEEDS TO GO BACK TO NURSING FACILITY FOR REHAB AND NOT HOME. CM EXPLAINED THAT CM CANNOT MAKE PT DO SOMETHING AGAINST PT'S WILL AND THAT IF PT IS NOT DEEMED INCOMPETENT BY A PHYSICIAN OR COURT, PT CAN MAKE BAD DECISIONS FOR HIMSELF. CM EXPLAINED HOW TO FILE FOR GUARDIANSHIP OF A PERSON AND THAT THIS WOULD HAVE TO BE GRANTED FOR ANYONE TO MAKE PT DO SOMETHING AGAINST HIS WILL. JORGE REPORTS UNDERSTANDING. PT PLANS TO DISCHARGE HOME WITH HIS SISTER, PT REPORTS HIS SISTER WILL PICK HIM UP FOR DISCHARGE HOME. PT DECLINES SENIOR CARE, [facility] OR REHAB PLACEMENT. PATIENT IS NOT APPROPRIATE FOR HOME HEALTH PER [facility]. Science Instructor: Brandin Garcia DCP- Discharge Planning Updated by [id number]: Brandin Garcia on 04/19/19 3:[address] Patient Name: ABBY PHILLIPS Admission Status: ER Accout number: [id number] Admission Date: 04-19-2019 : 1945 Admission Diagnosis: Attending: SAMUEL COOPER Current LOS: 1 Anticipated DC Date: 04-19-2019 Planned Disposition: Home Primary Insurance: [facility] MEDICARE SOLUTIONS Discharge Planning Comments: CM MET WITH PT IN ROOM TO DISCUSS DISCHARGE PLANNING AND NEEDS. PT REPORTS LIVING AT HOME DEPENDENTLY WITH HIS SISTER HANDY WHO IS STAYING WITH PT IN PT'S HOME TO CARE FOR PT. . PT HAS [facility] LIFT AND WHEELCHAIR WELL HOME AND PORTABLE OXYGEN FROM [facility]. PT HAS NO OUTSIDE SERVICES ASSISTING IN THE HOME [facility] DECLINED TO ADMIT HIM AND TOLD HIM HE HAS TO BE DOING BETTER FOR HOME HEALTH SERVICES. CM DISCUSSED AVAILABILITY OF HOME HEALTH, REHAB SERVICES AND MEDICAL EQUIPMENT. PT DECLINED SENIOR CARE OR REHAB PLACEMENT. PT DENIES DISCHARGE NEEDS, REPORTS HIS SISTER HANDY WILL PICK HIM UP FOR DISCHARGE HOME. PT REPORTS MISSING DIALYSIS BECAUSE HE WENT ON THURSDAY AND THEY DID NOT HAVE A SLING TO USE ON THE LIFT TO PICK HIM UP AT THE DIALYSIS UNIT. PT STATES HE HAS A SLING AT HOME AND FORGOT ABOUT IT. PT REPORTS HIS SISTER USES THE [employer] LIFT TO GET HIM TO THE WHEELCHAIR AND THEY WILL LEAVE THE SLING UNDER HIM FOR DIALYSIS TO USE FROM NOW ON. CHOICE SIGNED FOR [facility] TO VERIFY WITH THEM THAT THEY WILL NOT SEE PT. CM CALLED [facility], , LEFT MESSAGE ASKING FOR THE NURSE TO CALL CM BACK. PT PLANS TO DISCHARGE HOME WITH HIS SISTER, PT REPORTS HIS SISTER WILL PICK HIM UP FOR DISCHARGE HOME. PT DECLINES SENIOR CARE, [facility] OR REHAB PLACEMENT. Science Instructor: Brandin Garcia Appended by Brandin Garcia on 04/19/2019 16:56 CDT: CM RECEIVED CALL FROM JERICA OF [facility] WHO INFORMED CM THAT THEY DID GO FOR THE HOME HEALTH ADMIT AND INFORMED PT AND FAMILY THAT PT NEEDS REHAB AND IS NOT APPROPRIATE FOR HOME HEALTH SERVICES AT THIS TIME. PT PLANS TO DISCHARGE HOME WITH HIS SISTER, PT REPORTS HIS SISTER WILL PICK HIM UP FOR DISCHARGE HOME. PT DECLINES SENIOR CARE, [facility] OR REHAB PLACEMENT. Science Instructor: Brandin Garcia DCPIA - Discharge Planning Initial Assessment Updated by [id number]: Brandin Garcia on 04/22/19 11:13 am * Is the patient Alert and Oriented? Yes * How many steps to enter\\exit or inside your home? NONE * PCP DR. ARACELI SIDHU * [facility] * Preadmission Environment Home with Family * ADLs Partial Dependent * Partial ADLs (Assistance needed) Ambulation Bathing Dressing Medication Management Toileting Transfers * Equipment Areli Lift Oxygen Wheelchair * Other Equipment HOME AND PORTABLE OXYGEN, [facility] * List name and contact numbers for known caregivers / representatives who currently or will assist patient after discharge: HANDY JONES, SISTER [phone] JORGE GORDON, SISTER, CHARLEY PHILLIPS, SON, * Verbal permission to speak to the caregivers and representatives has been obtained from the patient. Yes * Community resources currently utilized None * Please name any agencies selected above. PT HAD INTAKE WITH [facility] FROM [place], ACCORDING TO PT, THEY DECLINED T PROVIDE SERVICES UNTIL HE WAS "DOING BETTER" OUTPATIENT DIALYSIS , [facility], [facility], [facility]. PT REPORTS HE HAS BEEN DRIVING HIMSELF. * Additional services required to return to the preadmission environment? No * Can the patient safely return to the preadmission environment? Yes * Has this patient been hospitalized within the prior 30 days at any hospital? Yes External Providers External Provider: OTHER-OTHER Next Contact Date: 04/29/2019 Service Request Date: Service Type: Resolution: Reviewer: Comments: Coverage Notice Reviewer: [id number] Skylar Augustin Notice Issued Date-Time: 04/19/2019 9:30 Notice Type: Medicare Outpatient Observation Notice Notice Delivered To: Patient Relationship to Patient: Self Forward Air Controller/Air Officer Name: Delivery Method: HAND - Hand Delivered Anusha Days: Prior Verbal Notification: Recipient Understood Notice: Yes Recipient Signature: Yes Med Rec Note Co-signed by Attending: Coverage Notice Comment: Reviewer: [id number] Garcia Notice Issued Date-Time: 04/19/2019 12:15 Notice Type: Patient Choice Letter Notice Delivered To: Patient Relationship to Patient: Forward Air Controller/Air Officer Name: Delivery Method: HAND - Hand Delivered Anusha Days: Prior Verbal Notification: Recipient Understood Notice: Yes Recipient Signature: Yes Med Rec Note Co-signed by Attending: Coverage Notice Comment: [facility] Reviewer: [id number] Skylar Garcia Notice Issued Date-Time: 04/21/2019 11:45 Notice Type: IM Discharge Notice Notice Delivered To: Patient Relationship to Patient: Forward Air Controller/Air Officer Name: Delivery Method: HAND - Hand Delivered Anusha Days: Prior Verbal Notification: Recipient Understood Notice: Yes Recipient Signature: Yes Med Rec Note Co-signed by Attending: Coverage Notice Comment: Reviewer: [id number] Garcia Notice Issued Date-Time: 04/22/2019 16:05 Notice Type: Patient Choice Letter Notice Delivered To: Patient Relationship to Patient: Forward Air Controller/Air Officer Name: Delivery Method: HAND - Hand Delivered Anusha Days: Prior Verbal Notification: Recipient Understood Notice: Yes Recipient Signature: Yes Med Rec Note Co-signed by Attending: Coverage Notice Comment: [facility]. Last DP export: 04/29/19 6:33 Patient Name: ABBY PHILLIPS Page [id number] at 1449 All edits/amendments must be made on the electronic document DICTATION DATE: 04/29/191448 AUDIT MACHINE OPERATOR: APRIL 04/29/191448 RPT#: [id number] DC DATE: STATUS: ADM IN [facility] [address] [place] [address] END OF REPORT
--- NOTE | 2019-04-29 14:59 | MORECARE ---
CASE MANAGEMENT DISCHARGE SUMMARY PATIENT: ABBY PHILLIPS UNIT: [id number] ADM DATE: 04/19/19 AGE: 73 : [birth year] SEX: M ROOM/BED: D.9362 AUTHOR: BYRON,DOC PHYSICIAN: REFERRING PHYSICIAN: SAMUEL COOPER MD DATE OF SERVICE: 04/29/19 Discharge Plan Patient Name: ABBY PHILLIPS Facility: [facility]:[place] : 1945 Planned Disposition: Fpc Facility Anticipated Discharge Date: 05/02/19 Discharge Date: Expected LOS: 13 Initial Reviewer: [id number] Initial Review Date: 04/18/2019 Generated: 04/29/19 3:59 pm Comments DCP- Discharge Planning Updated by [id number]: Brandin Garcia on 04/29/19 6:[address] Patient Name: ABBY PHILLIPS Encounter No: [id number] : 1945 Primary Insurance: [facility] MEDICARE SOLUTIONS Anticipated DC Date: 04-21-2019 Planned Disposition: Fpc Facility External Planned Provider:[facility] OR [facility] IN [place], MEDICARE REHAB BED DCP follow-up note: CM REVIEWED CHART, PT DID PARTICIPATE WITH THERAPY ON 04-27-19 AND 04-28-19. PT HAS DEMONSTRATED ABILITY TO TRANSFER AND SIT IN CHAIR FOR THREE OR MORE HOURS. CM FAXED REFERRAL UPDATE TO [facility] AT [phone]. AND [facility] AT [phone]. CM WAITING ADMISSION DETERMINATIONS FROM [facility] AND [facility]. IF EITHER FACLITY WILL ACCEPT, CM WILL REQUEST CHANGE OF DIALYSIS UNIT. PT'S INSURANCE ALSO REQUIRES PRIOR AUTHORIZATION FOR REHAB PLACEMENT. SELENA Escobedo DCP- Discharge Planning Updated by [id number]: Brandin Garcia on 04/28/19 6:[address] Patient Name: ABBY PHILLIPS Encounter No: [id number] : 1945 Primary Insurance: [facility] MEDICARE SOLUTIONS Anticipated DC Date: 04-21-2019 Planned Disposition: Fpc Facility External Planned Provider: [facility] IN [place], MEDICARE REHAB BED DCP follow-up note: CM REVIEWED CHART, PT DID PARTICIPATE WITH THERAPY ON 04-27-19. PT DID SIT UP IN CHAIR FOR THREE OR MORE HOURS. CM FAXED REFERRAL UPDATE TO [facility] AT [phone]. AND [facility] AT [phone]. CM WAITING ADMISSION DETERMINATIONS FROM [facility] AND [facility]. IF EITHER FACLITY WILL ACCEPT, CM WILL REQUEST CHANGE OF DIALYSIS UNIT. PT'S INSURANCE ALSO REQUIRES PRIOR AUTHORIZATION FOR REHAB PLACEMENT. Brandin Garcia CASE MANAGEMENT DCP- Discharge Planning Updated by [id number]: Brandin Garcia on 04/27/19 11:[address] Patient Name: ABBY PHILLIPS Encounter No: [id number] : 1945 Primary Insurance: [facility] MEDICARE SOLUTIONS Anticipated DC Date: 04-21-2019 Planned Disposition: Fpc Facility External Planned Provider: [facility] IN [place], MEDICARE REHAB BED DCP follow-up note: CM REVIEWED CHART, PT DID NOT PARTICIPATE WITH THERAPY ON 04-26-19. CM MET WITH PT IN ROOM TO DISCUSS DISCHARGE PLANNING AND NEEDS. PT DOES NOT WANT CARE HOME CARE OR HOSPICE. PT INSISTS THAT HE WANTS REHAB SERVICES. CM EXPLAINED THAT PT HAS TO PARTICIPATE FULLY WITH THERAPY EACH TIME OFFERED INSURANCE WILL NOT PAY FOR REHAB SERVICES WITHOUT PARTICIPATION WITH OFFERED THERAPY. PT REPORTS UNDERSTANDING. PT PROMISES TO PARTICIPATE WITH THERAPY SERVICES AND UNDERSTANDS THAT HE MUST SIT UP IN CHAIR FOR THREE OR MORE HOURS TO SHOW HE CAN GO TO OUTPATIENT DIALYSIS. CM RECEIVED CALL FROM MATILDA OF [facility] WHO WILL FOLLOW, BUT WILL ONLY CONSIDER IF PT IS PARTICIPATING WITH THERAPY. CM TO FAX REFERRAL UPDATE [facility] AT [phone]. AND [facility] AT [phone], ONCE NEW THERAPY NOTES ARE DOCUMENTED ON 04-27. CM WAITING ADMISSION DETERMINATIONS FROM [facility] AND [facility]. IF EITHER FACLITY WILL ACCEPT, CM WILL REQUEST CHANGE OF DIALYSIS UNIT. PT'S INSURANCE ALSO REQUIRES PRIOR AUTHORIZATION FOR REHAB PLACEMENT. SELENA Escobedo MANAGEMENT DCP- Discharge Planning Updated by [id number]: Brandin Garcia on 04/26/19 8:[address] Patient Name: ABBY PHILLIPS Encounter No: [id number] : 1945 Primary Insurance: [facility] MEDICARE SOLUTIONS Anticipated DC Date: 04-21-2019 Planned Disposition: Fpc Facility External [facility] IN [place], MEDICARE REHAB BED DCP follow-up note: CM FAXED REFERRALUPDATE TO [facility] AT [phone]. CM FAXED REFERRAL [facility] TO [facility] AT [phone]. CM TO DISCUSS WITH REHAB TODAY THAT PT NEEDS TO HAVE DEMONSTRATED ABILITY TO SIT FOR THREE OR MORE HOURS IN CHAIR FOR OUTPATIENT DIALYSIS. CM WAITING ADMISSION DETERMINATIONS FROM [facility] AND [facility]. Brandin Garcia CASE MANAGEMENT DCP- Discharge Planning Updated by [id number]: Brandin Garcia on 04/25/19 1:[address] Patient Name: ABBY PHILLIPS Encounter No: [id number] : 1945 Primary Insurance: [facility] MEDICARE SOLUTIONS Anticipated DC Date: 04-21-2019 Planned Disposition: Fpc Facility External Planned Provider: [facility] IN [place], MEDICARE REHAB BED DCP follow-up note: CM RECEIVED CALL FROM CHARLEY PHILLIPS, PT'S SON, WHO ASKED WHAT IS TAKING SO LONG TO GET PT INTO REHAB IN [place]. CM EXPLAINED PLACEMENT PROCESS, INSURANCE APPROVAL TIME FRAME AND ALSO THE PROCESS OF HAVING TO GET ACCEPTING DIALYSIS UNIT IF CM CAN GET FACILITY TO ACCEPT PT. CHARLEY REPORTS UNDERSTANDING. CM CALLED [facility], , SPOKE TO SYD WHO INFORMED CM THAT SHE DID NOT GET THE REFERRAL. CM CONFIRMED FAX NUMBER, REVIEWED AND FOUND FAX CONFIRMATION FROM THURSDAY. CM FAXED REFERRAL AND UPDATE TO [facility] AT [phone]. CM SPOKE PR[facility] OF [facility], , SHE WILL CALL [facility] AND GET UPDATE SHE HAS NOT "HEARD A WORD". CM FAXED REFERRAL [facility] TO [facility] AT [phone]. CM WAITING ADMISSION DETERMINATIONS FROM [facility] AND [facility]. Brandin Garcia, CASE MANAGEMENT DCP- Discharge Planning Updated by [id number]: Brandin Garcia on 04/22/19 10:[address] Patient Name: ABBY PHILLIPS Encounter No: [id number] : 1945 Primary Insurance: [facility] MEDICARE SOLUTIONS Anticipated DC Date: 04-21-2019 Planned Disposition: Fpc Facility External Planned Provider: [facility] IN [place], MEDICARE REHAB BED DCP follow-up note: CM SPOKE TO PT IN ROOM REGARDING DISCHARGE PLANNING. PT WILL GO TO REHAB IN [place] SO HE WILL BE CLOSE TO HIS SON. PT ASKED CM TO HURRY UP HE IS TIRED OF BEING IN THE HOSPITAL. CM EXPLAINED TO PT THAT IF HE WOULD HAVE DECIDED SOONER, CM WOULD HAVE ALREADY BEEN WORKING ON REHAB PLACEMENT. PT SIGNED CONSENT FOR [facility] SUGGESTED BY HIS SON AND FOR ANY SENIOR CARE REHAB IN [place]. CM EXPLAINED TO PT THAT HIS INSURANCE MAY TAKE SEVERAL DAYS TO APPROVE OR DECLINE REHAB SERVICES AND THAT CM WILL HAVE TO FIND A FACILITY THAT WILL TRANSPORT TO DIALYSIS AND IF ALL OF THAT IS DONE, CM WILL HAVE TO REQUEST A NEW DIALYSIS UNIT. PT REPORTS UNDERSTANDING. CM CALLED [facility], , SPOKE TO KAVIN WHO WILL SCREEN FOR ADMISSION. CM [facility]ED [facility] AT [phone]. CM NOTIFIED PRASHAN[facility] OF [facility], , OF REFERRAL. CM FAXED REFERRAL FOR [facility] TO [facility] AT [phone]. CM WAITING ADMISSION DETERMINATIONS FROM [facility] AND [facility]. Brandin Garcia, CASE MANAGEMENT DCP- Discharge Planning Updated by [id number]: Brandin Garcia on 04/21/19 4:[address] Patient Name: ABBY PHILLIPS Encounter No: [id number] : 1945 Primary Insurance: [facility] MEDICARE SOLUTIONS Anticipated DC Date: 04-21-2019 Planned Disposition: Fpc Facility External Planned Provider: [facility] OR OTHER [facility] IN [place] DCP follow-up note: CM RECEIVED CALL FROM CHARLEY PHILLIPS, PT'S SON, WHO REPORTS THAT HE HAS TALKED TO PT VIA PHONE AND PT IS NOW AGREEING TO GO TO SENIOR CARE REHAB IN [place], CLOSE TO HIS SON. CM ATTEMPTED TO SEE PT WHO WAS OUT OF ROOM AT APPROXIMATELY 1345 HOURS. CM WILL SPEAK TO PT SOON POSSIBLE REGARDING SENIOR CARE REHAB IN [place] AND SEND REFERRALS IF PT WILL SIGN THE CONSENT. Brandin Garcia, CASE MANAGEMENT DCP- Discharge Planning Updated by [id number]: Brandin Garcia on 04/21/19 11:[address] Patient Name: ABBY PHILLIPS Encounter No: [id number] : 1945 Primary Insurance: [facility] MEDICARE SOLUTIONS Anticipated DC Date: 04-21-2019 Planned Disposition: Left Against Medical Advice DCP follow-up note: CM SPOKE TO BEDSIDE NURSE WHO REPORTS PT'S SISTER, JORGE, CALLED AND STATES SHE WILL NOT BE PICKING PT UP FOR TRANSPORT HOME. CM MET WITH PT IN ROOM TO DISCUSS DISCHARGE PLANNING AND NEEDS. PT REPORTS STILL PLANNING TO LEAVE WHEN HE FINDS A RIDE. CM EXPLAINED THAT PT'S FAMILY MEMBERS ARE CALLING AND INFORMING HOSPITAL STAFF THEY ARE NOT PICKING UP PT. PT STATES HE HAS FRIENDS THAT ARE GOING TO HELP. CM PROVIDED PT WITH MEDICARE WEBSITE RESULTS FOR SENIOR CARE REHABS WITHIN 50 MILES OF HIS HOME. CM EXPLAINED THAT [facility] WILL NOT ACCEPT PT BACK AND THAT IF PT CHANGES HIS MIND AND DECIDES TO GO TO REHAB, CM WILL NEED PT'S TOP TWO SELECTIONS AND SIGNATURE ON THE CHOICE FORM. IMPORTANT MESSAGE FROM MEDICARE PROVIDED AND EXPLAINED. PT ASKED CM TO CALL ADAM SANCHES, PHARMACIST AT [facility] TO HAVE HER , JOHN SANCHES, CALL PT. CM CALLED AND WAS ADVISED BY ADAM THAT AGUSTIN SPOKE TO PT YESTERDAY AND SHE WILL LET HER KNOW THAT PT WANTS TO TALK TO HIM AGAIN. CM STILL REFUSING SENIOR CARE FACLITY PLACEMENT. CM WAITING ON PT TO DEVELOP TRANSPORTATION HOME. IF TRANSPORTATION IS VERIFIED, CALL [facility], , WILL HAS AGREED TO ARRANGE PORTABLE OXGYEN TO HOSPITAL FOR PT TO LEAVE HOSPITAL. CM TO CONTINUE TO FOLLOW AND ASSIST NEEDED. Automation Test Developer: Brandin Garcia DCP- Discharge Planning Updated by [id number]: Brandin Garcia on 04/21/19 8:[address] Patient Name: ABBY PHILLIPS Encounter No: [id number] : 1945 Primary Insurance: [facility] MEDICARE SOLUTIONS Anticipated DC Date: 04-21-2019 Planned Disposition: Left Against Medical Advice DCP follow-up note: HARSHAL SPOKE TO HERIBERTO SANCHES REGARDING PT'S DISCHARGE PLAN. TREATMENT TEAM CONCERNED THAT PT DOES NOT HAVE SAFE DISCHARGE PLAN. CM MET WITH HERIBERTO SANCHES WITH PT IN ROOM. PT INSISTS THAT HE WILL GO HOME, JOHN SANCHES, , WILL PICK HIM UP. PT REPORTS ALEXSANDRA LOPEZ, A FRIEND FROM [place] WILL ASSIST WITH CARING FOR PT IN HOME AND ASSIST WITH GETTING TO AND FROM DIALYSIS. PT REPORTS HE NORMALLY DRIVES HIMSELF TO AND FROM DIALYSIS AND IS ABLE TO TRANSFER HIMSELF TO A WHEELCHAIR, GET TO HIS CAR, GET THE WHEELCHAIR INTO THE TRUCK OF THE CAR AND THEN WALK TO AND GET INTO THE DRIVERS SEAT HOLDING ON TO THE CAR. PT REPORTS HAVING ELECTRIC AND MANUAL WHEELCHAIR AND IS ABLE TO TRANSFER HIMSELF FROM BED TO CHAIR AND CHAIR TO BED. PT DOES NOT KNOW THE NUMBER TO HIS FRIEND ALEXSANDRA, TO VERIFY HE WILL ASSIST AFTER DISCHARGE. PT REPORTS HIS SISTER HANDY LIVES IN HIS HOUSE AND HAS FOR FOUR MONTHS. CM ADVISED THAT FAMILY INFORMED STAFF HERE THAT PT NEEDS NURSING REHAB. PT REPORTS THAT HIS FAMILY IS WANTING TO KEEP HIM AWAY AND IN THE SENIOR CARE. HERIBERTO SANCHES ADVISED THAT PT MUST HAVE A SAFE AND VERIFIABLE PLAN TO DISCHARGE HOME. CM ATTEMPTED TO CALL JOHN SANCHES, ; THERE WAS NO ANSWER AND NO MESSAGE MACHINE. CM CALLED [facility], , SPOKE TO PRESS SETTER [facility] WHO INFORMED CM THAT THEY CAN DELIVER PORTABLE OXYGEN TO PT'S ROOM FOR DISCHARGE IF NEEDED. HARSHAL SPOKE TO PT IN ROOM, HERIBERTO SANCHES WAS IN ROOM SPEAKING TO PT. PT STATES HE IS LEAVING "AMA". HERIBERTO SANCHES INFORMED PT THAT PT MUST HAVE A PERSON TO VERIFY THEY ARE TRANSPORTING PRIOR TO ANY AMA FORMS BEING PRESENTED. CM ADVISED PT IF HE IS ABLE TO VERIFY TRANSPORATATION BY CM SPEAKING TO THAT PERSON AND THEY AGREE TO WELDER EXPLOSION PT, CM WILL ASK [facility] TO DELIVER PORTABLE OXYGEN TO ROOM. CM ASKED THAT IF PT CHANGES HIS MIND AND DECIDES TO GO TO SENIOR CARE REHAB, TO PLEASE NOTIFY CM AND CM WILL BE GLAD TO ASSIST WITH PLACEMENT. PT DECLINED. CM WAITING ON PT TO DEVELOP TRANSPORTATION HOME. IF TRANSPORTATION IS VERIFIED, CALL [facility], , WILL HAS AGREED TO ARRANGE PORTABLE OXGYEN TO HOSPITAL FOR PT TO LEAVE HOSPITAL. CM TO CONTINUE TO FOLLOW AND ASSIST NEEDED. Automation Test Developer: Brandin Garcia DCP- Discharge Planning Updated by [id number]: Brandin Garcia on 04/20/19 1:[address] Patient Name: ABBY PHILLIPS Encounter No: [id number] : 1945 Primary Insurance: [employer] MEDICARE SOLUTIONS Anticipated DC Date: 04-19-2019 Planned Disposition: Home DCP follow-up note: CM MET WITH PT IN ROOM AND ENCOURAGED PT TO GO TO REHAB PRIOR TO DISCHARGE HOME. PT CONTINUES TO REFUSE AND REPORTS HIS SISTER WILL PICK HIM UP FOR DISCHARGE HOME. PT STATES HE MAY NEED OXYGEN FROM [facility] AGAIN TO GO HOME. CM EXPLAINED THAT IF HIS SISTER IS PICKING HIM UP AND SHE IS STAYING WITH PT IN PT'S HOME, SHE SHOULD BRING OXYGEN WITH HER. PT WILL REQUEST HIS SISTER BRING OXYGEN WITH HER. CM RECEIVED CALL FROM MIRIAM GORDON, , WHO INFORMED CM THAT PT HAS BEEN CALLING STATING HE IS GOING TO BE DISCHARGED TODAY AND NEEDS A RIDE HOME. JORGE STATES PT NEEDS TO GO BACK TO NURSING FACILITY FOR REHAB AND NOT HOME. CM EXPLAINED THAT CM CANNOT MAKE PT DO SOMETHING AGAINST PT'S WILL AND THAT IF PT IS NOT DEEMED INCOMPETENT BY A PHYSICIAN OR COURT, PT CAN MAKE BAD DECISIONS FOR HIMSELF. CM EXPLAINED HOW TO FILE FOR GUARDIANSHIP OF A PERSON AND THAT THIS WOULD HAVE TO BE GRANTED FOR ANYONE TO MAKE PT DO SOMETHING AGAINST HIS WILL. JORGE REPORTS UNDERSTANDING. PT PLANS TO DISCHARGE HOME WITH HIS SISTER, PT REPORTS HIS SISTER WILL PICK HIM UP FOR DISCHARGE HOME. PT DECLINES SENIOR CARE, SENIOR CARE OR REHAB PLACEMENT. PATIENT IS NOT APPROPRIATE FOR HOME HEALTH PER [facility]. Automation Test Developer: Brandin Garcia DCP- Discharge Planning Updated by [id number]: Brandin Garcia on 04/19/19 3:[address] Patient Name: ABBY PHILLIPS Admission Status: ER Accout number: [id number] Admission Date: 04-19-2019 : 1945 Admission Diagnosis: Attending: SAMUEL COOPER Current LOS: 1 Anticipated DC Date: 04-19-2019 Planned Disposition: Home Primary Insurance: [facility] MEDICARE SOLUTIONS Discharge Planning Comments: CM MET WITH PT IN ROOM TO DISCUSS DISCHARGE PLANNING AND NEEDS. PT REPORTS LIVING AT HOME DEPENDENTLY WITH HIS SISTER HANDY WHO IS STAYING WITH PT IN PT'S HOME TO CARE FOR PT. . PT HAS [facility] LIFT AND WHEELCHAIR WELL HOME AND PORTABLE OXYGEN FROM [facility]. PT HAS NO OUTSIDE SERVICES ASSISTING IN THE HOME [facility] DECLINED TO ADMIT HIM AND TOLD HIM HE HAS TO BE DOING BETTER FOR HOME HEALTH SERVICES. CM DISCUSSED AVAILABILITY OF HOME HEALTH, REHAB SERVICES AND MEDICAL EQUIPMENT. PT DECLINED SENIOR CARE OR REHAB PLACEMENT. PT DENIES DISCHARGE NEEDS, REPORTS HIS SISTER HANDY WILL PICK HIM UP FOR DISCHARGE HOME. PT REPORTS MISSING DIALYSIS BECAUSE HE WENT ON THURSDAY AND THEY DID NOT HAVE A SLING TO USE ON THE LIFT TO PICK HIM UP AT THE DIALYSIS UNIT. PT STATES HE HAS A SLING AT HOME AND FORGOT ABOUT IT. PT REPORTS HIS SISTER USES THE [employer] LIFT TO GET HIM TO THE WHEELCHAIR AND THEY WILL LEAVE THE SLING UNDER HIM FOR DIALYSIS TO USE FROM NOW ON. CHOICE SIGNED FOR [facility] TO VERIFY WITH THEM THAT THEY WILL NOT SEE PT. CM CALLED [facility], , LEFT MESSAGE ASKING FOR THE NURSE TO CALL CM BACK. PT PLANS TO DISCHARGE HOME WITH HIS SISTER, PT REPORTS HIS SISTER WILL PICK HIM UP FOR DISCHARGE HOME. PT DECLINES SENIOR CARE, SENIOR CARE OR REHAB PLACEMENT. Automation Test Developer: Brandin Garcia Appended by Brandin Garcia on 04/19/2019 16:56 CDT: CM RECEIVED CALL FROM JERICA OF [facility] WHO INFORMED CM THAT THEY DID GO FOR THE HOME HEALTH ADMIT AND INFORMED PT AND FAMILY THAT PT NEEDS REHAB AND IS NOT APPROPRIATE FOR HOME HEALTH SERVICES AT THIS TIME. PT PLANS TO DISCHARGE HOME WITH HIS SISTER, PT REPORTS HIS SISTER WILL PICK HIM UP FOR DISCHARGE HOME. PT DECLINES SENIOR CARE, SENIOR CARE OR REHAB PLACEMENT. Automation Test Developer: Brandin Garcia DCPIA - Discharge Planning Initial Assessment Updated by [id number]: Brandin Garcia on 04/22/19 11:13 am * Is the patient Alert and Oriented? Yes * How many steps to enter\\exit or inside your home? NONE * PCP DR. ARACELI SIDHU * [facility] * Preadmission Environment Home with Family * ADLs Partial Dependent * Partial ADLs (Assistance needed) Ambulation Bathing Dressing Medication Management Toileting Transfers * Equipment [employer] Lift Oxygen Wheelchair * Other Equipment HOME AND PORTABLE OXYGEN, [facility] * List name and contact numbers for known caregivers / representatives who currently or will assist patient after discharge: HANDY JONES, SISTER [phone] JORGE GORDON, SISTER, CHARLEY PHILLIPS, SON, * Verbal permission to speak to the caregivers and representatives has been obtained from the patient. Yes * Community resources currently utilized None * Please name any agencies selected above. PT HAD INTAKE WITH Audiam FROM [facility], ACCORDING TO PT, THEY DECLINED T PROVIDE SERVICES UNTIL HE WAS "DOING BETTER" OUTPATIENT DIALYSIS , [facility], [facility], [facility]. PT REPORTS HE HAS BEEN DRIVING HIMSELF. * Additional services required to return to the preadmission environment? No * Can the patient safely return to the preadmission environment? Yes * Has this patient been hospitalized within the prior 30 days at any hospital? Yes Coverage Notice Reviewer: [id number] Skylar Augustin Notice Issued Date-Time: 04/19/2019 9:30 Notice Type: Medicare Outpatient Observation Notice Notice Delivered To: Patient Relationship to Patient: Self [employer] Name: Delivery Method: HAND - Hand Delivered Anusha Days: Prior Verbal Notification: Recipient Understood Notice: Yes Recipient Signature: Yes Med Rec Note Co-signed by Attending: Coverage Notice Comment: Reviewer: [id number] Garcia Notice Issued Date-Time: 04/19/2019 12:15 Notice Type: Patient Choice Letter Notice Delivered To: Patient Relationship to Patient: [employer] Name: Delivery Method: HAND - Hand Delivered Anusha Days: Prior Verbal Notification: Recipient Understood Notice: Yes Recipient Signature: Yes Med Rec Note Co-signed by Attending: Coverage Notice Comment: [facility] Reviewer: [id number] Skylar Garcia Notice Issued Date-Time: 04/21/2019 11:45 Notice Type: IM Discharge Notice Notice Delivered To: Patient Relationship to Patient: [employer] Name: Delivery Method: HAND - Hand Delivered Anusha Days: Prior Verbal Notification: Recipient Understood Notice: Yes Recipient Signature: Yes Med Rec Note Co-signed by Attending: Coverage Notice Comment: Reviewer: [id number] Garcia Notice Issued Date-Time: 04/22/2019 16:05 Notice Type: Patient Choice Letter Notice Delivered To: Patient Relationship to Patient: [employer] Name: Delivery Method: HAND - Hand Delivered Anusha Days: Prior Verbal Notification: Recipient Understood Notice: Yes Recipient Signature: Yes Med Rec Note Co-signed by Attending: Coverage Notice Comment: [facility]. Last DP export: 04/29/19 1:49 Patient Name: ABBY PHILLIPS Page [id number] at 1455 All edits/amendments must be made on the electronic document DICTATION DATE: 04/29/191458 EXPENSE CLERK: APRIL 04/29/191458 RPT#: [id number] DC DATE: STATUS: ADM IN [facility] [address] [place] [address] END OF REPORT
--- NOTE | 2019-04-29 15:21 | MORECARE ---
CASE MANAGEMENT DISCHARGE SUMMARY PATIENT: ABBY PHILLIPS UNIT: [id number] ADM DATE: 04/19/19 AGE: 73 : [birth year] SEX: M ROOM/BED: D.6774 AUTHOR: BYRON,DOC PHYSICIAN: REFERRING PHYSICIAN: SAMUEL COOPER MD DATE OF SERVICE: 04/29/19 Discharge Plan Patient Name: ABBY PHILLIPS Facility: [facility]:[place] : 1945 Planned Disposition: Fpc Facility Anticipated Discharge Date: 05/02/19 Discharge Date: Expected LOS: 13 Initial Reviewer: [id number] Initial Review Date: 04/18/2019 Generated: 04/29/19 4:20 pm Comments DCP- Discharge Planning Updated by [id number]: Brandin Garcia on 04/29/19 2:[address] Patient Name: ABBY PHILLIPS Encounter No: [id number] : 1945 Primary Insurance: [facility] MEDICARE SOLUTIONS Anticipated DC Date: 05-02-2019 Planned Disposition: Fpc Facility External Planned Provider: [facility], MEDICARE REHAB BED DCP follow-up note: CM RECEIVED CALL FROM PRASHANTH OF [facility], THEY WILL NOT ACCEPT ANOTHER DIALYSIS PATIENT AT THIS TIME. CM CALLED [facility], , WAS ADVISED THAT ADMISSIONS STAFF WERE IN MEETING; CM LEFT MESSAGE ASKING FOR UPDATE ON REHAB REFERRAL WITH CM CONTACT INFORMATION. CM CALLED AND SPOKE TO BETINA OF [facility], ; BETINA INFORMED CM THAT SHE HAS SEVERAL HOMES IN THE [place] AREA AND WILL SCREEN PT FOR REHAB ADMISSION, SHE WILL PERSONALLY COME TO HOSPITAL ON THURSDAY, , TO ASSESS PT FOR ADMISSION; [facility] IS IN NETWORK WITH PT'S INSURANCE. CM FAXED REFERRAL FOR [facility] AT [phone]. CM UPDATED PT WHO REPORTS WANTING REHAB PLACEMENT IN [place] CLOSE TO HIS SON POSSIBLE. CM UPDATE DR. COOPER VIA PHONE. DR. COOPER ADVISED THAT PT IS READY TO DISCHARGE TO REHAB WHEN ACCEPTED. PT HAS BEEN DECLINED BY THE [facility]; CM WAITING ADMISSION DETERMINATIONS FROM [facility] AND [facility] FOR REHAB PLACEMENT. IF ACCEPTED AT EITHER FACILITY, CM WILL REQUEST CHANGE OF OUTPATIENT DIALYSIS UNIT. Brandin Garcia CASE MANAGEMENT DCP- Discharge Planning Updated by [id number]: Brandin Garcia on 04/29/19 6:[address] Patient Name: ABBY PHILLIPS Encounter No: [id number] : 1945 Primary Insurance: [facility] MEDICARE SOLUTIONS Anticipated DC Date: 04-21-2019 Planned Disposition: Fpc Facility External Planned Provider:[facility] OR [facility] [place], MEDICARE REHAB BED DCP follow-up note: CM REVIEWED CHART, PT DID PARTICIPATE WITH THERAPY ON 04-27-19 AND 04-28-19. PT HAS DEMONSTRATED ABILITY TO TRANSFER AND SIT IN CHAIR FOR THREE OR MORE HOURS. CM FAXED REFERRAL UPDATE TO [facility] AT [phone]. AND THE [facility] AT [phone]. CM WAITING ADMISSION DETERMINATIONS FROM [facility] AND THE [facility]. IF EITHER FACLITY WILL ACCEPT, CM WILL REQUEST CHANGE OF DIALYSIS UNIT. PT'S INSURANCE ALSO REQUIRES PRIOR AUTHORIZATION FOR REHAB PLACEMENT. SELENA Escobedo MANAGEMENT DCP- Discharge Planning Updated by [id number]: Brandin Garcia on 04/28/19 6:[address] Patient Name: ABBY PHILLIPS Encounter No: [id number] : 1945 Primary Insurance: [facility] MEDICARE SOLUTIONS Anticipated DC Date: 04-21-2019 Planned Disposition: Fpc Facility External Planned Provider: [facility] OR [facility] [place], MEDICARE REHAB BED DCP follow-up note: CM REVIEWED CHART, PT DID PARTICIPATE WITH THERAPY ON 04-27-19. PT DID SIT UP IN CHAIR FOR THREE OR MORE HOURS. CM FAXED REFERRAL UPDATE TO [facility] AT [phone]. AND THE [facility] AT [phone]. CM WAITING ADMISSION DETERMINATIONS FROM [facility] AND THE [facility]. IF EITHER FACLITY WILL ACCEPT, CM WILL REQUEST CHANGE OF DIALYSIS UNIT. PT'S INSURANCE ALSO REQUIRES PRIOR AUTHORIZATION FOR REHAB PLACEMENT. Brandin Garcia CASE MANAGEMENT DCP- Discharge Planning Updated by [id number]: Brandin Garcia on 04/27/19 11:[address] Patient Name: ABBY PHILLIPS Encounter No: [id number] : 1945 Primary Insurance: [facility] MEDICARE SOLUTIONS Anticipated DC Date: 04-21-2019 Planned Disposition: Fpc Facility External Planned Provider: [facility] [place], MEDICARE REHAB BED DCP follow-up note: CM REVIEWED CHART, PT DID NOT PARTICIPATE WITH THERAPY ON 04-26-19. CM MET WITH PT IN ROOM TO DISCUSS DISCHARGE PLANNING AND NEEDS. PT DOES NOT WANT [facility] OR HOSPICE. PT INSISTS THAT HE WANTS REHAB SERVICES. CM EXPLAINED THAT PT HAS TO PARTICIPATE FULLY WITH THERAPY EACH TIME OFFERED INSURANCE WILL NOT PAY FOR REHAB SERVICES WITHOUT PARTICIPATION WITH OFFERED THERAPY. PT REPORTS UNDERSTANDING. PT PROMISES TO PARTICIPATE WITH THERAPY SERVICES AND UNDERSTANDS THAT HE MUST SIT UP IN CHAIR FOR THREE OR MORE HOURS TO SHOW HE CAN GO TO OUTPATIENT DIALYSIS. CM RECEIVED CALL FROM MATILDA OF THE [facility] WHO WILL FOLLOW, BUT WILL ONLY CONSIDER IF PT IS PARTICIPATING WITH THERAPY. CM TO FAX REFERRAL UPDATE [facility] AT [phone]. AND THE [facility] AT [phone], ONCE NEW THERAPY NOTES ARE DOCUMENTED ON 04-27. CM WAITING ADMISSION DETERMINATIONS FROM [facility] AND [facility]. IF EITHER FACLITY WILL ACCEPT, CM WILL REQUEST CHANGE OF DIALYSIS UNIT. PT'S INSURANCE ALSO REQUIRES PRIOR AUTHORIZATION FOR REHAB PLACEMENT. Brandin Garcia, CASE MANAGEMENT DCP- Discharge Planning Updated by [id number]: Brandin Garcia on 04/26/19 8:[address] Patient Name: ABBY PHILLIPS Encounter No: [id number] : 1945 Primary Insurance: [facility] MEDICARE SOLUTIONS Anticipated DC Date: 04-21-2019 Planned Disposition: Fpc Facility External Planned Provider:[facility] [place], MEDICARE REHAB BED DCP follow-up note: CM FAXED REFERRALUPDATE TO [facility] AT [phone]. CM FAXED REFERRAL [facility] FOR THE [facility] TO PRASHANTH AT [phone]. CM TO DISCUSS WITH REHAB TODAY THAT PT NEEDS TO HAVE DEMONSTRATED ABILITY TO SIT FOR THREE OR MORE HOURS IN CHAIR FOR OUTPATIENT DIALYSIS. CM WAITING ADMISSION DETERMINATIONS FROM [facility] AND THE [facility]. SELENA Escobedo MANAGEMENT DCP- Discharge Planning Updated by [id number]: Brandin Garcia on 04/25/19 1:[address] Patient Name: ABBY PHILLIPS Encounter No: [id number] : 1945 Primary Insurance: [facility] MEDICARE SOLUTIONS Anticipated DC Date: 04-21-2019 Planned Disposition: Fpc Facility External Planned Provider: [facility] OR [facility] [place], MEDICARE REHAB BED DCP follow-up note: CM RECEIVED CALL FROM CHARLEY JACQUELINE, PT'S SON, WHO ASKED WHAT IS TAKING SO LONG TO GET PT INTO REHAB IN [place]. CM EXPLAINED PLACEMENT PROCESS, INSURANCE APPROVAL TIME FRAME AND ALSO THE PROCESS OF HAVING TO GET ACCEPTING DIALYSIS UNIT IF CM CAN GET FACILITY TO ACCEPT PT. CHARLEY REPORTS UNDERSTANDING. CM CALLED [facility], , SPOKE TO SYD WHO INFORMED CM THAT SHE DID NOT GET THE REFERRAL. CM CONFIRMED FAX NUMBER, REVIEWED AND FOUND FAX CONFIRMATION FROM THURSDAY. CM FAXED REFERRAL AND UPDATE TO [facility] AT [phone]. CM SPOKE PRASHANTH OF THE [facility], , SHE WILL CALL [facility] AND GET UPDATE SHE HAS NOT "HEARD A WORD". CM FAXED REFERRAL [facility] FOR THE [facility] TO PRASHANTH AT [phone]. CM WAITING ADMISSION DETERMINATIONS FROM [facility] AND [facility]. SELENA Escobedo MANAGEMENT DCP- Discharge Planning Updated by [id number]: Brandin Garcia on 04/22/19 10:[address] Patient Name: ABBY PHILLIPS Encounter No: [id number] : 1945 Primary Insurance: [facility] MEDIC[facility] SOLUTIONS Anticipated DC Date: 04-21-2019 Planned Disposition: Fpc Facility External Planned Provider: [facility] OR [facility] [place], MEDICARE REHAB BED DCP follow-up note: CM SPOKE TO PT IN ROOM REGARDING DISCHARGE PLANNING. PT WILL GO TO REHAB IN [place] SO HE WILL BE CLOSE TO HIS SON. PT ASKED CM TO HURRY UP HE IS TIRED OF BEING IN THE HOSPITAL. CM EXPLAINED TO PT THAT IF HE WOULD HAVE DECIDED SOONER, CM WOULD HAVE ALREADY BEEN WORKING ON REHAB PLACEMENT. PT SIGNED CONSENT FOR [facility] SUGGESTED BY HIS SON AND FOR ANY HALF-WAY REHAB IN [place]. CM EXPLAINED TO PT THAT HIS INSURANCE MAY TAKE SEVERAL DAYS TO APPROVE OR DECLINE REHAB SERVICES AND THAT CM WILL HAVE TO FIND A FACILITY THAT WILL TRANSPORT TO DIALYSIS AND IF ALL OF THAT IS DONE, CM WILL HAVE TO REQUEST A NEW DIALYSIS UNIT. PT REPORTS UNDERSTANDING. CM CALLED [facility], , SPOKE TO KAVIN WHO WILL SCREEN FOR ADMISSION. CM FAXED REFERRAL TO [facility] AT [phone]. CM NOTIFIED PRASHANTH OF THE [facility], , OF REFERRAL. CM FAXED REFERRAL FOR THE [facility] TO PRASHANTH AT [phone]. CM WAITING ADMISSION DETERMINATIONS FROM [facility] AND [facility]. Brandin Garcia, CASE MANAGEMENT DCP- Discharge Planning Updated by [id number]: Brandin Garcia on 04/21/19 4:[address] Patient Name: ABBY PHILLIPS Encounter No: [id number] : 1945 Primary Insurance: [facility] MEDIC[facility] SOLUTIONS Anticipated DC Date: 04-21-2019 Planned Disposition: Fpc Facility External Planned Provider: [facility] OR OTHER HALF-WAY IN [place] DCP follow-up note: CM RECEIVED CALL FROM CHARLEY PHILLIPS, PT'S SON, WHO REPORTS THAT HE HAS TALKED TO PT VIA PHONE AND PT IS NOW AGREEING TO GO TO HALF-WAY REHAB IN [place], CLOSE TO HIS SON. CM ATTEMPTED TO SEE PT WHO WAS OUT OF ROOM AT APPROXIMATELY 1345 HOURS. CM WILL SPEAK TO PT SOON POSSIBLE REGARDING HALF-WAY REHAB IN [place] AND SEND REFERRALS IF PT WILL SIGN THE CONSENT. Brandin Garcia, CASE ROXANNA DCP- Discharge Planning Updated by [id number]: Brandin Garcia on 04/21/19 11:[address] Patient Name: ABBY PHILLIPS Encounter No: [id number] : 1945 Primary Insurance: [facility] MEDIC[facility] SOLUTIONS Anticipated DC Date: 04-21-2019 Planned Disposition: Left Against Medical Advice DCP follow-up note: CM SPOKE TO BEDSIDE NURSE WHO REPORTS PT'S SISTER, JORGE, CALLED AND STATES SHE WILL NOT BE PICKING PT UP FOR TRANSPORT HOME. CM MET WITH PT IN ROOM TO DISCUSS DISCHARGE PLANNING AND NEEDS. PT REPORTS STILL PLANNING TO LEAVE WHEN HE FINDS A RIDE. CM EXPLAINED THAT PT'S FAMILY MEMBERS ARE CALLING AND INFORMING HOSPITAL STAFF THEY ARE NOT PICKING UP PT. PT STATES HE HAS FRIENDS THAT ARE GOING TO HELP. CM PROVIDED PT WITH MEDICARE WEBSITE RESULTS FOR HALF-WAY REHABS WITHIN 50 MILES OF HIS HOME. CM EXPLAINED THAT [facility] WILL NOT ACCEPT PT BACK AND THAT IF PT CHANGES HIS MIND AND DECIDES TO GO TO REHAB, CM WILL NEED PT'S TOP TWO SELECTIONS AND SIGNATURE ON THE CHOICE FORM. IMPORTANT MESSAGE FROM MEDICARE PROVIDED AND EXPLAINED. PT ASKED CM TO CALL ADAM SANCHES, PHARMACIST AT [facility] TO HAVE HER , JOHN SANCHES, CALL PT. CM CALLED AND WAS ADVISED BY ADAM THAT AGUSTIN SPOKE TO PT YESTERDAY AND SHE WILL LET HER KNOW THAT PT WANTS TO TALK TO HIM AGAIN. CM STILL REFUSING HALF-WAY FACLITY PLACEMENT. CM WAITING ON PT TO DEVELOP TRANSPORTATION HOME. IF TRANSPORTATION IS VERIFIED, CALL [facility], , WILL HAS AGREED TO ARRANGE PORTABLE OXGYEN TO HOSPITAL FOR PT TO LEAVE HOSPITAL. CM TO CONTINUE TO FOLLOW AND ASSIST NEEDED. Metal Handler: Brandin Garcia DCP- Discharge Planning Updated by [id number]: Brandin Garcia on 04/21/19 8:[address] Patient Name: ABBY PHILLIPS Encounter No: [id number] : 1945 Primary Insurance: [facility] MEDIC[facility] SOLUTIONS Anticipated DC Date: 04-21-2019 Planned Disposition: Left Against Medical Advice DCP follow-up note: CM SPOKE TO HERIBERTO SANCHES REGARDING PT'S DISCHARGE PLAN. TREATMENT TEAM CONCERNED THAT PT DOES NOT HAVE SAFE DISCHARGE PLAN. CM MET WITH HERIBERTO SANCHES WITH PT IN ROOM. PT INSISTS THAT HE WILL GO HOME, JOHN SANCHES, , WILL PICK HIM UP. PT REPORTS ALEXSANDRA LOPEZ, A FRIEND FROM [place] WILL ASSIST WITH CARING FOR PT IN HOME AND ASSIST WITH GETTING TO AND FROM DIALYSIS. PT REPORTS HE NORMALLY DRIVES HIMSELF TO AND FROM DIALYSIS AND IS ABLE TO TRANSFER HIMSELF TO A WHEELCHAIR, GET TO HIS CAR, GET THE WHEELCHAIR INTO THE TRUCK OF THE CAR AND THEN WALK TO AND GET INTO THE DRIVERS SEAT HOLDING ON TO THE CAR. PT REPORTS HAVING ELECTRIC AND MANUAL WHEELCHAIR AND IS ABLE TO TRANSFER HIMSELF FROM BED TO CHAIR AND CHAIR TO BED. PT DOES NOT KNOW THE NUMBER TO HIS FRIEND ALEXSANDRA, TO VERIFY HE WILL ASSIST AFTER DISCHARGE. PT REPORTS HIS SISTER HANDY LIVES IN HIS HOUSE AND HAS FOR FOUR MONTHS. CM ADVISED THAT FAMILY INFORMED STAFF HERE THAT PT NEEDS NURSING REHAB. PT REPORTS THAT HIS FAMILY IS WANTING TO KEEP HIM AWAY AND IN THE [facility]. HERIBERTO SANCHES ADVISED THAT PT MUST HAVE A SAFE AND VERIFIABLE PLAN TO DISCHARGE HOME. CM ATTEMPTED TO CALL JOHN SANCHES, ; THERE WAS NO ANSWER AND NO MESSAGE MACHINE. CM CALLED [facility], , SPOKE TO INSOLE LIP TURNER RAYNE WHO INFORMED CM THAT THEY CAN DELIVER PORTABLE OXYGEN TO PT'S ROOM FOR DISCHARGE IF NEEDED. HARSHAL SPOKE TO PT IN ROOM, HERIBERTO SANCHES WAS IN ROOM SPEAKING TO PT. PT STATES HE IS LEAVING "AMA". HERIBERTO SANCHES INFORMED PT THAT PT MUST HAVE A PERSON TO VERIFY THEY ARE TRANSPORTING PRIOR TO ANY AMA FORMS BEING PRESENTED. CM ADVISED PT IF HE IS ABLE TO VERIFY TRANSPORATATION BY CM SPEAKING TO THAT PERSON AND THEY AGREE TO SNAILER PT, CM WILL ASK [facility] TO DELIVER PORTABLE OXYGEN TO ROOM. CM ASKED THAT IF PT CHANGES HIS MIND AND DECIDES TO GO TO HALF-WAY REHAB, TO PLEASE NOTIFY CM AND CM WILL BE GLAD TO ASSIST WITH PLACEMENT. PT DECLINED. CM WAITING ON PT TO DEVELOP TRANSPORTATION HOME. IF TRANSPORTATION IS VERIFIED, CALL [facility], , WILL HAS AGREED TO ARRANGE PORTABLE OXGYEN TO HOSPITAL FOR PT TO LEAVE HOSPITAL. CM TO CONTINUE TO FOLLOW AND ASSIST NEEDED. Metal Handler: Brandin Garcia DCP- Discharge Planning Updated by [id number]: Brandin Garcia on 04/20/19 1:[address] Patient Name: ABBY PHILLIPS Encounter No: [id number] : 1945 Primary Insurance: [facility] MEDIC[facility] SOLUTIONS Anticipated DC Date: 04-19-2019 Planned Disposition: Home DCP follow-up note: CM MET WITH PT IN ROOM AND ENCOURAGED PT TO GO TO REHAB PRIOR TO DISCHARGE HOME. PT CONTINUES TO REFUSE AND REPORTS HIS SISTER WILL PICK HIM UP FOR DISCHARGE HOME. PT STATES HE MAY NEED OXYGEN FROM [facility] AGAIN TO GO HOME. CM EXPLAINED THAT IF HIS SISTER IS PICKING HIM UP AND SHE IS STAYING WITH PT IN PT'S HOME, SHE SHOULD BRING OXYGEN WITH HER. PT WILL REQUEST HIS SISTER BRING OXYGEN WITH HER. CM RECEIVED CALL FROM MIRIAM GORDON, , WHO INFORMED CM THAT PT HAS BEEN CALLING STATING HE IS GOING TO BE DISCHARGED TODAY AND NEEDS A RIDE HOME. JORGE STATES PT NEEDS TO GO BACK TO NURSING FACILITY FOR REHAB AND NOT HOME. CM EXPLAINED THAT CM CANNOT MAKE PT DO SOMETHING AGAINST PT'S WILL AND THAT IF PT IS NOT DEEMED INCOMPETENT BY A PHYSICIAN OR COURT, PT CAN MAKE BAD DECISIONS FOR HIMSELF. CM EXPLAINED HOW TO FILE FOR GUARDIANSHIP OF A PERSON AND THAT THIS WOULD HAVE TO BE GRANTED FOR ANYONE TO MAKE PT DO SOMETHING AGAINST HIS WILL. JORGE REPORTS UNDERSTANDING. PT PLANS TO DISCHARGE HOME WITH HIS SISTER, PT REPORTS HIS SISTER WILL PICK HIM UP FOR DISCHARGE HOME. PT DECLINES [facility], HALF-WAY OR REHAB PLACEMENT. PATIENT IS NOT APPROPRIATE FOR HOME HEALTH PER [facility]. Metal Handler: Brandin Garcia DCP- Discharge Planning Updated by [id number]: Brandin Garcia on 04/19/19 3:[address] Patient Name: ABBY PHILLIPS Admission Status: ER Accout number: [id number] Admission Date: 04-19-2019 : 1945 Admission Diagnosis: Attending: SAMUEL COOPER Current LOS: 1 Anticipated DC Date: 04-19-2019 Planned Disposition: Home Primary Insurance: [facility] MEDICARE SOLUTIONS Discharge Planning Comments: CM MET WITH PT IN ROOM TO DISCUSS DISCHARGE PLANNING AND NEEDS. PT REPORTS LIVING AT HOME DEPENDENTLY WITH HIS SISTER HANDY WHO IS STAYING WITH PT IN PT'S HOME TO CARE FOR PT. . PT HAS [employer] LIFT AND WHEELCHAIR WELL HOME AND PORTABLE OXYGEN FROM [facility]. PT HAS NO OUTSIDE SERVICES ASSISTING IN THE HOME [employer] [facility] DECLINED TO ADMIT HIM AND TOLD HIM HE HAS TO BE DOING BETTER FOR HOME HEALTH SERVICES. CM DISCUSSED AVAILABILITY OF HOME HEALTH, REHAB SERVICES AND MEDICAL EQUIPMENT. PT DECLINED [facility] OR REHAB PLACEMENT. PT DENIES DISCHARGE NEEDS, REPORTS HIS SISTER HANDY WILL PICK HIM UP FOR DISCHARGE HOME. PT REPORTS MISSING DIALYSIS BECAUSE HE WENT ON THURSDAY AND THEY DID NOT HAVE A SLING TO USE ON THE LIFT TO PICK HIM UP AT THE DIALYSIS UNIT. PT STATES HE HAS A SLING AT HOME AND FORGOT ABOUT IT. PT REPORTS HIS SISTER USES THE [employer] LIFT TO GET HIM TO THE WHEELCHAIR AND THEY WILL LEAVE THE SLING UNDER HIM FOR DIALYSIS TO USE FROM NOW ON. CHOICE SIGNED FOR [employer] [facility] TO VERIFY WITH THEM THAT THEY WILL NOT SEE PT. CM CALLED [employer] [facility], , LEFT MESSAGE ASKING FOR THE NURSE TO CALL CM BACK. PT PLANS TO DISCHARGE HOME WITH HIS SISTER, PT REPORTS HIS SISTER WILL PICK HIM UP FOR DISCHARGE HOME. PT DECLINES [facility], HALF-WAY OR REHAB PLACEMENT. Metal Handler: Brandin Garcia Appended by Brandin Garcia on 04/19/2019 16:56 CDT: CM RECEIVED CALL FROM JERICA OF [employer] [facility] WHO INFORMED CM THAT THEY DID GO FOR THE [facility] ADMIT AND INFORMED PT AND FAMILY THAT PT NEEDS REHAB AND IS NOT APPROPRIATE FOR HOME HEALTH SERVICES AT THIS TIME. PT PLANS TO DISCHARGE HOME WITH HIS SISTER, PT REPORTS HIS SISTER WILL PICK HIM UP FOR DISCHARGE HOME. PT DECLINES [facility], HALF-WAY OR REHAB PLACEMENT. Metal Handler: Brandin Garcia DCPIA - Discharge Planning Initial Assessment Updated by [id number]: Brandin Garcia on 04/22/19 11:13 am * Is the patient Alert and Oriented? Yes * How many steps to enter\\exit or inside your home? NONE * PCP DR. ARACELI SIDHU * Pharmacy [facility] * Preadmission Environment Home with Family * ADLs Partial Dependent * Partial ADLs (Assistance needed) Ambulation Bathing Dressing Medication Management Toileting Transfers * Equipment [employer] Lift Oxygen Wheelchair * Other Equipment HOME AND PORTABLE OXYGEN, [facility] * List name and contact numbers for known caregivers / representatives who currently or will assist patient after discharge: HANDY JONES, SISTER [phone] JORGE GORDON, SISTER, CHARLEY PHILLIPS, SON, * Verbal permission to speak to the caregivers and representatives has been obtained from the patient. Yes * Community resources currently utilized None * Please name any agencies selected above. PT HAD INTAKE WITH [facility] FROM [place], ACCORDING TO PT, THEY DECLINED T PROVIDE SERVICES UNTIL HE WAS "DOING BETTER" OUTPATIENT DIALYSIS , [facility], [facility], [facility]. PT REPORTS HE HAS BEEN DRIVING HIMSELF. * Additional services required to return to the preadmission environment? No * Can the patient safely return to the preadmission environment? Yes * Has this patient been hospitalized within the prior 30 days at any hospital? Yes Coverage Notice Reviewer: [id number] Skylar Deborahbon Augustin Notice Issued Date-Time: 04/19/2019 9:30 Notice Type: Medicare Outpatient Observation Notice Notice Delivered To: Patient Relationship to Patient: Self Irrigation Equipment Mechanic Name: Delivery Method: HAND - Hand Delivered Anusha Days: Prior Verbal Notification: Recipient Understood Notice: Yes Recipient Signature: Yes Med Rec Note Co-signed by Attending: Coverage Notice Comment: Reviewer: [id number] Garcia Notice Issued Date-Time: 04/19/2019 12:15 Notice Type: Patient Choice Letter Notice Delivered To: Patient Relationship to Patient: Irrigation Equipment Mechanic Name: Delivery Method: HAND - Hand Delivered Anusha Days: Prior Verbal Notification: Recipient Understood Notice: Yes Recipient Signature: Yes Med Rec Note Co-signed by Attending: Coverage Notice Comment: [facility] Reviewer: [id number] Garcia Notice Issued Date-Time: 04/21/2019 11:45 Notice Type: IM Discharge Notice Notice Delivered To: Patient Relationship to Patient: Irrigation Equipment Mechanic Name: Delivery Method: HAND - Hand Delivered Anusha Days: Prior Verbal Notification: Recipient Understood Notice: Yes Recipient Signature: Yes Med Rec Note Co-signed by Attending: Coverage Notice Comment: Reviewer: [id number] Garcia Notice Issued Date-Time: 04/22/2019 16:05 Notice Type: Patient Choice Letter Notice Delivered To: Patient Relationship to Patient: Irrigation Equipment Mechanic Name: Delivery Method: HAND - Hand Delivered Anusha Days: Prior Verbal Notification: Recipient Understood Notice: Yes Recipient Signature: Yes Med Rec Note Co-signed by Attending: Coverage Notice Comment: [facility] HALF-WAY FACILITY. Last DP export: 04/29/19 1:59 Patient Name: ABBY PHILLIPS Page [id number] at 1521 All edits/amendments must be made on the electronic document DICTATION DATE: 04/29/19 1520 CAUSTIC ROOM OPERATOR: APRIL 04/29/19 1520 RPT#: [id number] DC DATE: STATUS: ADM IN [facility] [address] [place] [address] END OF REPORT
[2019-04-29 19:00] VITALS: BP 166/88
--- NOTE | 2019-04-29 19:00 | NUR ---
PT CARE ASSUMED. RR EVEN AND UNLABORED ON 2L NC. PT DENIES NEEDS AT THIS TIME. NO S/S OF DISTRESS NOTED. A&O X3. SR X2. CALL LIGHT IN REACH. WILL CTM.
[2019-04-30] VITALS: BP 174/84
[2019-04-30 04:00] VITALS: BP 180/82
--- NOTE | 2019-04-30 05:41 | NUR ---
PT REFUSED AM LAB WORK
[2019-04-30 08:19] VITALS: BP 174/65
--- NOTE | 2019-04-30 09:46 | NUR ---
AM MEDS GIVEN AT THIS TIME. ALSO GAVE NORCO FOR PAIN LEVEL OF 10/10 TO LT THUMB, PT ASKING FOR SOMETHING STRONGER THAN NORCO, BECAUSE HE SAYS THAT THE NORCO DOES NOT HELP HIS THUMB PAIN. WILL CALL DOCTOR AND SEE IF SOMETHING ELSE CAN BE ORDERED.
--- NOTE | 2019-04-30 10:35 | NUR ---
PT RESTING COMFORTABLY WITH EYES CLOSED, WILL GIVE NEUROTIN ONCE PT IS AWAKE. CALL LIGHT IN REACH, NAD NOTED, WILL CONTINUE TO MONITOR.
[2019-04-30 13:10] LABS: BASOPHILS 0.2 % (0-2); EOSINOPHILS 2.5 % (0-7); HEMATOCRIT 31.8 % (42.0-54.0); HEMOGLOBIN 9.5 g/dL (13.5-17.5); IMMATURE GRANULOCYTES 0.7 % (0-5); LYMPHOCYTES 18.6 % (15-50); MCH 26.2 pg (26.0-34.0); MCHC 29.9 g/dL (31.0-37.0); MCV 87.6 fL (80.0-100.0); MEAN PLATELET VOLUME 9.4 fL (7.4-10.4); RBC 3.63 10x6/uL (4.20-6.10); RDW 19.3 % (11.5-14.5); WBC 12.2 10x3/uL (4.8-10.8)
[2019-04-30 13:13] LABS: PLATELET COUNT 442 10x3/uL (130-400)
--- NOTE | 2019-04-30 13:30 | NUR ---
PT TO DIALYSIS VIA BED, NAD NOTED.
[2019-04-30 13:31] LABS: ANION GAP 11.3 mmol/L (8-16); CALCIUM 9.2 mg/dL (8.5-10.1); CARBON DIOXIDE 30.2 mmol/L (21.0-32.0); CREATININE - SERUM 3.8 mg/dL (0.6-1.3); POTASSIUM - SERUM 4.5 mmol/L (3.5-5.1)
--- NOTE | 2019-04-30 17:17 | NUR ---
PT BACK TO ROOM 2128, VIA BED. PT DENIES ANY NEEDS AT THIS TIME. CALL LIGHT IN REACH, NAD NOTED,W ILL CONTINUE TO MONITOR.
--- NOTE | 2019-04-30 19:43 | NUR ---
RECIEVED LATING IN BED WITH EYES OPEN. ALERT AND ORIENTED. HARD TO UNDERSTAND D/T VERY LOW TONE VOICE. BECOMES AGGITAED EASILY. HEMOSPLIT TO RIGHT5 CHEST WITH DSG CDI. ALSO, PEG TUBE TO LUQ WITH DSG CDI. BRUSING TO BILATERL ARMS. NECROTIC AREAS TO LEFT THUMB, INDEX FINGER AND THIRD DIGIT. ALSO, LEFT FOOT SCABED AREAS TO LEFT GREAT TOE AND 2ND DIGIT. LEFT LOWER SCHOFIELD ALSO HAS SCABBED AREAS. PT VERY ANGRY AND DOES NOT WANT ANYONE TO WAKE HIM UP TONIGHYT. WILL CONVEY MSG TO AID. DENIES ANY OTHER NEEDS.
[2019-05-01 07:52] VITALS: BP 158/68
[2019-05-01 12:00] VITALS: BP 112/45
[2019-05-01 15:47] VITALS: BP 136/65
--- NOTE | 2019-05-01 19:45 | NUR ---
PT CARE ASSUMED. BEDSIDE SHIFT REPORT COMPLETE. PT UP IN BED EATING A SNACK. RR EVEN AND UNLABORED ON 2L NC. NO S/S OF DISTRESS NOTED AT THIS TIME. SR X2. CALL LIGHT IN REACH. WILL CTM.
[2019-05-01 20:00] VITALS: BP 181/63
--- NOTE | 2019-05-02 00:24 | NUR ---
CALLED FOR ASSISTANCE. PT EXPRESSING THAT HE COULD NOT BREATHE. ELEVATED BED 90 DEGREES. VISABLE USE OF ACCESSORY MUSCLES WHEN TAKING A BREATH. IT INFRASTRUCTURE MANAGER CALLED TO BEDSIDE FOR ASSESMENT. UPDRAFT GIVEN. SPO2 99% ON 7L NC. NO FURTHER S/S OF DISTRESS AT THIS TIME. WILL CTM.
[2019-05-02 00:34] VITALS: BP 192/81
[2019-05-02 04:00] VITALS: BP 188/53
[2019-05-02 05:51] LABS: BASOPHILS 0.1 % (0-2); EOSINOPHILS 2.5 % (0-7); HEMATOCRIT 30.9 % (42.0-54.0); IMMATURE GRANULOCYTES 0.8 % (0-5); LYMPHOCYTES 22.2 % (15-50); MCH 25.9 pg (26.0-34.0); MCHC 29.1 g/dL (31.0-37.0); MEAN PLATELET VOLUME 9.7 fL (7.4-10.4); MONOCYTES 11.6 % (2-11); NEUTROPHILS 62.8 % (40-80); PLATELET COUNT 444 10x3/uL (130-400); RBC 3.47 10x6/uL (4.20-6.10); RDW 20.4 % (11.5-14.5); WBC 14.4 10x3/uL (4.8-10.8)
[2019-05-02 06:22] LABS: ANION GAP 11.3 mmol/L (8-16); CALCIUM 8.7 mg/dL (8.5-10.1); CARBON DIOXIDE 28.9 mmol/L (21.0-32.0); CREATININE - SERUM 3.8 mg/dL (0.6-1.3); POTASSIUM - SERUM 4.2 mmol/L (3.5-5.1)
--- NOTE | 2019-05-02 07:12 | NUR ---
PT RESTING PEACEFULLY, BREATHS EVEN/REGULAR/UNLABORED. NO SIGNS/SYMTPOMS OF ACUTE DISTRESS NOTED AT THIS TIME. CL IN REACH, SRX2, NO FAMLY PRESENT AT BEDSIDE.
[2019-05-02 07:38] VITALS: BP 141/34
--- NOTE | 2019-05-02 08:58 | MORECARE ---
CASE MANAGEMENT DISCHARGE SUMMARY PATIENT: ABBY PHILLIPS UNIT: [id number] ADM DATE: 04/19/19 AGE: 73 : [birth year] SEX: M ROOM/BED: D.5181 AUTHOR: BYRON,DOC PHYSICIAN: REFERRING PHYSICIAN: SAMUEL COOPER MD DATE OF SERVICE: 05/02/19 Discharge Plan Patient Name: ABBY PHILLIPS Facility: [facility]:[place] : 1945 Planned Disposition: Jail Facility Anticipated Discharge Date: 05/02/19 Discharge Date: Expected LOS: 13 Initial Reviewer: [id number] Initial Review Date: 04/18/2019 Generated: 05/02/19 9:58 am Comments DCP- Discharge Planning Updated by [id number]: Brandin Garcia on 04/29/19 2:[address] Patient Name: ABBY PIHLLIPS Encounter No: [id number] : 1945 Primary Insurance: [facility] MEDICARE SOLUTIONS Anticipated DC Date: 05-02-2019 Planned Disposition: Jail Facility External Planned Provider: [facility], MEDICARE REHAB BED DCP follow-up note: CM RECEIVED CALL FROM PRASHANTH OF [facility], THEY WILL NOT ACCEPT ANOTHER DIALYSIS PATIENT AT THIS TIME. CM CALLED [facility], , WAS ADVISED THAT ADMISSIONS STAFF WERE IN MEETING; CM LEFT MESSAGE ASKING FOR UPDATE ON REHAB REFERRAL WITH CM CONTACT INFORMATION. CM CALLED AND SPOKE TO BETINA OF [facility], ; BETINA INFORMED CM THAT SHE HAS SEVERAL HOMES IN THE [place] AREA AND WILL SCREEN PT FOR REHAB ADMISSION, SHE WILL PERSONALLY COME TO HOSPITAL ON , TO ASSESS PT FOR ADMISSION; [facility] IS IN NETWORK WITH PT'S INSURANCE. CM FAXED REFERRAL FOR [facility] AT [phone]. CM UPDATED PT WHO REPORTS WANTING REHAB PLACEMENT IN [place] CLOSE TO HIS SON POSSIBLE. CM UPDATE DR. COOPER VIA PHONE. DR. COOPER ADVISED THAT PT IS READY TO DISCHARGE TO REHAB WHEN ACCEPTED. PT HAS BEEN DECLINED BY [facility]; CM WAITING ADMISSION DETERMINATIONS FROM [facility] AND [facility] FOR REHAB PLACEMENT. IF ACCEPTED AT EITHER FACILITY, CM WILL REQUEST CHANGE OF OUTPATIENT DIALYSIS UNIT. Brandin Garcia CASE MANAGEMENT DCP- Discharge Planning Updated by [id number]: Brandin Garcia on 04/29/19 6:[address] Patient Name: ABBY PHILLIPS Encounter No: [id number] : 1945 Primary Insurance: [facility] MEDICARE SOLUTIONS Anticipated DC Date: 04-21-2019 Planned Disposition: Jail Facility External Planned Provider:[facility] OR [facility] [place], MEDICARE REHAB BED DCP follow-up note: CM REVIEWED CHART, PT DID PARTICIPATE WITH THERAPY ON 04-27-19 AND 04-28-19. PT HAS DEMONSTRATED ABILITY TO TRANSFER AND SIT IN CHAIR FOR THREE OR MORE HOURS. CM FAXED REFERRAL UPDATE TO [facility] AT [phone]. AND [facility] AT [phone]. CM WAITING ADMISSION DETERMINATIONS FROM [facility] AND [facility]. IF EITHER FACLITY WILL ACCEPT, CM WILL REQUEST CHANGE OF DIALYSIS UNIT. PT'S INSURANCE ALSO REQUIRES PRIOR AUTHORIZATION FOR REHAB PLACEMENT. SELENA Escobedo MANAGEMENT DCP- Discharge Planning Updated by [id number]: Brandin Garcia on 04/28/19 6:[address] Patient Name: ABBY PHILLIPS Encounter No: [id number] : 1945 Primary Insurance: [facility] MEDICARE SOLUTIONS Anticipated DC Date: 04-21-2019 Planned Disposition: Jail Facility External Planned Provider: [facility] OR [facility] [place], MEDICARE REHAB BED DCP follow-up note: CM REVIEWED CHART, PT DID PARTICIPATE WITH THERAPY ON 04-27-19. PT DID SIT UP IN CHAIR FOR THREE OR MORE HOURS. CM FAXED REFERRAL UPDATE TO [facility] AT [phone]. AND [facility] AT [phone]. CM WAITING ADMISSION DETERMINATIONS FROM [facility] AND [facility]. IF EITHER FACLITY WILL ACCEPT, CM WILL REQUEST CHANGE OF DIALYSIS UNIT. PT'S INSURANCE ALSO REQUIRES PRIOR AUTHORIZATION FOR REHAB PLACEMENT. Brandin Garcia CASE MANAGEMENT DCP- Discharge Planning Updated by [id number]: Brandin Garcia on 04/27/19 11:[address] Patient Name: ABBY PHILLIPS Encounter No: [id number] : 1945 Primary Insurance: [facility] MEDICARE SOLUTIONS Anticipated DC Date: 04-21-2019 Planned Disposition: Jail Facility External Planned Provider: [facility] [place], MEDICARE REHAB BED DCP follow-up note: CM REVIEWED CHART, PT DID NOT PARTICIPATE WITH THERAPY ON 04-26-19. CM MET WITH PT IN ROOM TO DISCUSS DISCHARGE PLANNING AND NEEDS. PT DOES NOT WANT SCREW MACHINE SETTER CARE OR HOSPICE. PT INSISTS THAT HE WANTS REHAB SERVICES. CM EXPLAINED THAT PT HAS TO PARTICIPATE FULLY WITH THERAPY EACH TIME OFFERED INSURANCE WILL NOT PAY FOR REHAB SERVICES WITHOUT PARTICIPATION WITH OFFERED THERAPY. PT REPORTS UNDERSTANDING. PT PROMISES TO PARTICIPATE WITH THERAPY SERVICES AND UNDERSTANDS THAT HE MUST SIT UP IN CHAIR FOR THREE OR MORE HOURS TO SHOW HE CAN GO TO OUTPATIENT DIALYSIS. CM RECEIVED CALL FROM MATILDA OF THE [facility] WHO WILL FOLLOW, BUT WILL ONLY CONSIDER IF PT IS PARTICIPATING WITH THERAPY. CM TO FAX REFERRAL UPDATE [facility] AT [phone]. AND [facility] AT [phone], ONCE NEW THERAPY NOTES ARE DOCUMENTED ON 04-27. CM WAITING ADMISSION DETERMINATIONS FROM [facility] AND [facility]. IF EITHER FACLITY WILL ACCEPT, CM WILL REQUEST CHANGE OF DIALYSIS UNIT. PT'S INSURANCE ALSO REQUIRES PRIOR AUTHORIZATION FOR REHAB PLACEMENT. Brandin Garcia, CASE MANAGEMENT DCP- Discharge Planning Updated by [id number]: Brandin Garcia on 04/26/19 8:[address] Patient Name: ABBY PHILLIPS Encounter No: [id number] : 1945 Primary Insurance: [facility] MEDICARE SOLUTIONS Anticipated DC Date: 04-21-2019 Planned Disposition: Jail Facility External Planned Provider:[facility] [place], MEDICARE REHAB BED DCP follow-up note: CM FAXED REFERRALUPDATE TO [facility] AT [phone]. CM FAXED REFERRAL [facility] FOR [facility] TO PRASHANTH AT [phone]. CM TO DISCUSS WITH REHAB TODAY THAT PT NEEDS TO HAVE DEMONSTRATED ABILITY TO SIT FOR THREE OR MORE HOURS IN CHAIR FOR OUTPATIENT DIALYSIS. CM WAITING ADMISSION DETERMINATIONS FROM [facility] AND [facility]. SELENA Escobedo MANAGEMENT DCP- Discharge Planning Updated by [id number]: Brandin Garcia on 04/25/19 1:[address] Patient Name: ABBY PHILLIPS Encounter No: [id number] : 1945 Primary Insurance: [facility] MEDICARE SOLUTIONS Anticipated DC Date: 04-21-2019 Planned Disposition: Jail Facility External Planned Provider: [facility] OR [facility] [place], MEDICARE REHAB BED DCP follow-up note: CM RECEIVED CALL FROM CHARLEY JACQUELINE, PT'S SON, WHO ASKED WHAT IS TAKING SO LONG TO GET PT INTO REHAB IN [place]. CM EXPLAINED PLACEMENT PROCESS, INSURANCE APPROVAL TIME FRAME AND ALSO THE PROCESS OF HAVING TO GET ACCEPTING DIALYSIS UNIT IF CM CAN GET FACILITY TO ACCEPT PT. CHARLEY REPORTS UNDERSTANDING. CM CALLED [facility], , SPOKE TO SYD WHO INFORMED CM THAT SHE DID NOT GET THE REFERRAL. CM CONFIRMED FAX NUMBER, REVIEWED AND FOUND FAX CONFIRMATION FROM THURSDAY. CM FAXED REFERRAL AND UPDATE TO [facility] AT [phone]. CM SPOKE PRASHANTH OF [facility], , SHE WILL CALL [facility] AND GET UPDATE SHE HAS NOT "HEARD A WORD". CM FAXED REFERRAL [facility] FOR [facility] TO PRASHANTH AT [phone]. CM WAITING ADMISSION DETERMINATIONS FROM [facility] AND [facility]. SELENA Escobedo MANAGEMENT DCP- Discharge Planning Updated by [id number]: Brandin Garcia on 04/22/19 10:[address] Patient Name: ABBY PHILLIPS Encounter No: [id number] : 1945 Primary Insurance: [facility] MEDICARE SOLUTIONS Anticipated DC Date: 04-21-2019 Planned Disposition: Jail Facility External Planned Provider: [facility] OR [facility] [place], MEDICARE REHAB BED DCP follow-up note: CM SPOKE TO PT IN ROOM REGARDING DISCHARGE PLANNING. PT WILL GO TO REHAB IN [place] SO HE WILL BE CLOSE TO HIS SON. PT ASKED CM TO HURRY UP HE IS TIRED OF BEING IN THE HOSPITAL. CM EXPLAINED TO PT THAT IF HE WOULD HAVE DECIDED SOONER, CM WOULD HAVE ALREADY BEEN WORKING ON REHAB PLACEMENT. PT SIGNED CONSENT FOR [facility] SUGGESTED BY HIS SON AND FOR ANY DETENTION REHAB IN [place]. CM EXPLAINED TO PT THAT HIS INSURANCE MAY TAKE SEVERAL DAYS TO APPROVE OR DECLINE REHAB SERVICES AND THAT CM WILL HAVE TO FIND A FACILITY THAT WILL TRANSPORT TO DIALYSIS AND IF ALL OF THAT IS DONE, CM WILL HAVE TO REQUEST A NEW DIALYSIS UNIT. PT REPORTS UNDERSTANDING. CM CALLED [facility], , SPOKE TO KAVIN WHO WILL SCREEN FOR ADMISSION. CM FAXED REFERRAL TO [facility] AT [phone]. CM NOTIFIED PRASHANTH OF [facility], , OF REFERRAL. CM FAXED REFERRAL FOR [facility] TO PRASHANTH AT [phone]. CM WAITING [facility]ATIONS [facility]. Brandin Garcia, CASE MANAGEMENT DCP- Discharge Planning Updated by [id number]: Brandin Garcia on 04/21/19 4:[address] Patient Name: ABBY PHILLIPS Encounter No: [id number] : 1945 Primary Insurance: [facility] MEDICARE SOLUTIONS Anticipated DC Date: 04-21-2019 Planned Disposition: Jail Facility External Planned Provider: [facility] OR OTHER DETENTION IN [place] DCP follow-up note: CM RECEIVED CALL FROM CHARLEY PHILLIPS, PT'S SON, WHO REPORTS THAT HE HAS TALKED TO PT VIA PHONE AND PT IS NOW AGREEING TO GO TO DETENTION REHAB IN [place], CLOSE TO HIS SON. CM ATTEMPTED TO SEE PT WHO WAS OUT OF ROOM AT APPROXIMATELY 1345 HOURS. CM WILL SPEAK TO PT SOON POSSIBLE REGARDING DETENTION REHAB IN [place] AND SEND REFERRALS IF PT WILL SIGN THE CONSENT. Brandin Garcia, CASE ROXANNA DCP- Discharge Planning Updated by [id number]: Brandin Garcia on 04/21/19 11:[address] Patient Name: ABBY PHILLIPS Encounter No: [id number] : 1945 Primary Insurance: [facility] MEDICARE SOLUTIONS Anticipated DC Date: 04-21-2019 Planned Disposition: Left Against Medical Advice DCP follow-up note: CM SPOKE TO BEDSIDE NURSE WHO REPORTS PT'S SISTER, JORGE, CALLED AND STATES SHE WILL NOT BE PICKING PT UP FOR TRANSPORT HOME. CM MET WITH PT IN ROOM TO DISCUSS DISCHARGE PLANNING AND NEEDS. PT REPORTS STILL PLANNING TO LEAVE WHEN HE FINDS A RIDE. CM EXPLAINED THAT PT'S FAMILY MEMBERS ARE CALLING AND INFORMING HOSPITAL STAFF THEY ARE NOT PICKING UP PT. PT STATES HE HAS FRIENDS THAT ARE GOING TO HELP. CM PROVIDED PT WITH MEDICARE WEBSITE RESULTS FOR DETENTION REHABS WITHIN 50 MILES OF HIS HOME. CM EXPLAINED THAT [facility] WILL NOT ACCEPT PT BACK AND THAT IF PT CHANGES HIS MIND AND DECIDES TO GO TO REHAB, CM WILL NEED PT'S TOP TWO SELECTIONS AND SIGNATURE ON THE CHOICE FORM. IMPORTANT MESSAGE FROM MEDICARE PROVIDED AND EXPLAINED. PT ASKED CM TO CALL ADAM SANCHES, PHARMACIST AT [facility] TO HAVE HER , JOHN SANCHES, CALL PT. CM CALLED AND WAS ADVISED BY ADAM THAT AGUSTIN SPOKE TO PT YESTERDAY AND SHE WILL LET HER KNOW THAT PT WANTS TO TALK TO HIM AGAIN. CM STILL REFUSING DETENTION FACLITY PLACEMENT. CM WAITING ON PT TO DEVELOP TRANSPORTATION HOME. IF TRANSPORTATION IS VERIFIED, CALL [facility], , WILL HAS AGREED TO ARRANGE PORTABLE OXGYEN TO HOSPITAL FOR PT TO LEAVE HOSPITAL. CM TO CONTINUE TO FOLLOW AND ASSIST NEEDED. [employer] Room Service Supervisor: Brandin Garcia DCP- Discharge Planning Updated by [id number]: Brandin Garcia on 04/21/19 8:[address] Patient Name: ABBY PHILLIPS Encounter No: [id number] : 1945 Primary Insurance: [facility] MEDICARE SOLUTIONS Anticipated DC Date: 04-21-2019 Planned Disposition: Left Against Medical Advice DCP follow-up note: CM SPOKE TO HERIBERTO SANCHES REGARDING PT'S DISCHARGE PLAN. TREATMENT TEAM CONCERNED THAT PT DOES NOT HAVE SAFE DISCHARGE PLAN. CM MET WITH HERIBERTO SANCHES WITH PT IN ROOM. PT INSISTS THAT HE WILL GO HOME, JOHN SANCHES, , WILL PICK HIM UP. PT REPORTS ALEXSANDRA LOPEZ, A FRIEND FROM [facility] WILL ASSIST WITH CARING FOR PT IN HOME AND ASSIST WITH GETTING TO AND FROM DIALYSIS. PT REPORTS HE NORMALLY DRIVES HIMSELF TO AND FROM DIALYSIS AND IS ABLE TO TRANSFER HIMSELF TO A WHEELCHAIR, GET TO HIS CAR, GET THE WHEELCHAIR INTO THE TRUCK OF THE CAR AND THEN WALK TO AND GET INTO THE DRIVERS SEAT HOLDING ON TO THE CAR. PT REPORTS HAVING ELECTRIC AND MANUAL WHEELCHAIR AND IS ABLE TO TRANSFER HIMSELF FROM BED TO CHAIR AND CHAIR TO BED. PT DOES NOT KNOW THE NUMBER TO HIS FRIEND ALEXSANDRA, TO VERIFY HE WILL ASSIST AFTER DISCHARGE. PT REPORTS HIS SISTER HANDY LIVES IN HIS HOUSE AND HAS FOR FOUR MONTHS. CM ADVISED THAT FAMILY INFORMED STAFF HERE THAT PT NEEDS NURSING REHAB. PT REPORTS THAT HIS FAMILY IS WANTING TO KEEP HIM AWAY AND IN THE [place]. HERIBERTO SANCHES ADVISED THAT PT MUST HAVE A SAFE AND VERIFIABLE PLAN TO DISCHARGE HOME. CM ATTEMPTED TO CALL JOHN SANCHES, ; THERE WAS NO ANSWER AND NO MESSAGE MACHINE. CM CALLED [facility], , SPOKE TO [employer] SUPERVISOR RAYNE WHO INFORMED CM THAT THEY CAN DELIVER PORTABLE OXYGEN TO PT'S ROOM FOR DISCHARGE IF NEEDED. HARSHAL SPOKE TO PT IN ROOM, HERIBERTO SANCHES WAS IN ROOM SPEAKING TO PT. PT STATES HE IS LEAVING "AMA". HERIBERTO SANCHES INFORMED PT THAT PT MUST HAVE A PERSON TO VERIFY THEY ARE TRANSPORTING PRIOR TO ANY AMA FORMS BEING PRESENTED. CM ADVISED PT IF HE IS ABLE TO VERIFY TRANSPORATATION BY CM SPEAKING TO THAT PERSON AND THEY AGREE TO FILM SPLICER PT, CM WILL ASK [facility] TO DELIVER PORTABLE OXYGEN TO ROOM. CM ASKED THAT IF PT CHANGES HIS MIND AND DECIDES TO GO TO DETENTION REHAB, TO PLEASE NOTIFY CM AND CM WILL BE GLAD TO ASSIST WITH PLACEMENT. PT DECLINED. CM WAITING ON PT TO DEVELOP TRANSPORTATION HOME. IF TRANSPORTATION IS VERIFIED, CALL [facility], , WILL HAS AGREED TO ARRANGE PORTABLE OXGYEN TO HOSPITAL FOR PT TO LEAVE HOSPITAL. CM TO CONTINUE TO FOLLOW AND ASSIST NEEDED. [employer] Motel Room Service Supervisor: Brandin Garcia DCP- Discharge Planning Updated by [id number]: rBandin Garcia on 04/20/19 1:[address] Patient Name: ABBY PHILLIPS Encounter No: [id number] : 1945 Primary Insurance: [facility] MEDICARE SOLUTIONS Anticipated DC Date: 04-19-2019 Planned Disposition: Home DCP follow-up note: CM MET WITH PT IN ROOM AND ENCOURAGED PT TO GO TO REHAB PRIOR TO DISCHARGE HOME. PT CONTINUES TO REFUSE AND REPORTS HIS SISTER WILL PICK HIM UP FOR DISCHARGE HOME. PT STATES HE MAY NEED OXYGEN FROM [facility] AGAIN TO GO HOME. CM EXPLAINED THAT IF HIS SISTER IS PICKING HIM UP AND SHE IS STAYING WITH PT IN PT'S HOME, SHE SHOULD BRING OXYGEN WITH HER. PT WILL REQUEST HIS SISTER BRING OXYGEN WITH HER. CM RECEIVED CALL FROM MIRIAM GORDON, , WHO INFORMED CM THAT PT HAS BEEN CALLING STATING HE IS GOING TO BE DISCHARGED TODAY AND NEEDS A RIDE HOME. JORGE STATES PT NEEDS TO GO BACK TO NURSING FACILITY FOR REHAB AND NOT HOME. CM EXPLAINED THAT CM CANNOT MAKE PT DO SOMETHING AGAINST PT'S WILL AND THAT IF PT IS NOT DEEMED INCOMPETENT BY A PHYSICIAN OR COURT, PT CAN MAKE BAD DECISIONS FOR HIMSELF. CM EXPLAINED HOW TO FILE FOR GUARDIANSHIP OF A PERSON AND THAT THIS WOULD HAVE TO BE GRANTED FOR ANYONE TO MAKE PT DO SOMETHING AGAINST HIS WILL. JORGE REPORTS UNDERSTANDING. PT PLANS TO DISCHARGE HOME WITH HIS SISTER, PT REPORTS HIS SISTER WILL PICK HIM UP FOR DISCHARGE HOME. PT DECLINES [facility], DETENTION OR REHAB PLACEMENT. PATIENT IS NOT APPROPRIATE FOR HOME HEALTH PER [employer] [facility]. Hotel Or Motel Room Service Supervisor: Brandin Garcia DCP- Discharge Planning Updated by [id number]: Brandin Garcia on 04/19/19 3:[address] Patient Name: ABBY PHILLIPS Admission Status: ER Accout number: [id number] Admission Date: 04-19-2019 : 1945 Admission Diagnosis: Attending: SAMUEL COOPER Current LOS: 1 Anticipated DC Date: 04-19-2019 Planned Disposition: Home Primary Insurance: [facility] MEDICARE SOLUTIONS Discharge Planning Comments: CM MET WITH PT IN ROOM TO DISCUSS DISCHARGE PLANNING AND NEEDS. PT REPORTS LIVING AT HOME DEPENDENTLY WITH HIS SISTER HANDY WHO IS STAYING WITH PT IN PT'S HOME TO CARE FOR PT. . PT HAS [employer] LIFT AND WHEELCHAIR WELL HOME AND PORTABLE OXYGEN FROM [facility]. PT HAS NO OUTSIDE SERVICES ASSISTING IN THE HOME [employer] [facility] DECLINED TO ADMIT HIM AND TOLD HIM HE HAS TO BE DOING BETTER FOR HOME HEALTH SERVICES. CM DISCUSSED AVAILABILITY OF HOME HEALTH, REHAB SERVICES AND MEDICAL EQUIPMENT. PT DECLINED [facility] OR REHAB PLACEMENT. PT DENIES DISCHARGE NEEDS, REPORTS HIS SISTER HANDY WILL PICK HIM UP FOR DISCHARGE HOME. PT REPORTS MISSING DIALYSIS BECAUSE HE WENT ON THURSDAY AND THEY DID NOT HAVE A SLING TO USE ON THE LIFT TO PICK HIM UP AT THE DIALYSIS UNIT. PT STATES HE HAS A SLING AT HOME AND FORGOT ABOUT IT. PT REPORTS HIS SISTER USES THE [employer] LIFT TO GET HIM TO THE WHEELCHAIR AND THEY WILL LEAVE THE SLING UNDER HIM FOR DIALYSIS TO USE FROM NOW ON. CHOICE SIGNED FOR [employer] [facility] TO VERIFY WITH THEM THAT THEY WILL NOT SEE PT. CM CALLED [employer] [facility], , LEFT MESSAGE ASKING FOR THE NURSE TO CALL CM BACK. PT PLANS TO DISCHARGE HOME WITH HIS SISTER, PT REPORTS HIS SISTER WILL PICK HIM UP FOR DISCHARGE HOME. PT DECLINES [facility], DETENTION OR REHAB PLACEMENT. Hotel [employer] Motel Room Service Supervisor: Brandin Garcia Appended by Brandin Garcia on 04/19/2019 16:56 CDT: CM RECEIVED CALL FROM JERICA OF [employer] [facility] WHO INFORMED CM THAT THEY DID GO FOR THE [facility] ADMIT AND INFORMED PT AND FAMILY THAT PT NEEDS REHAB AND IS NOT APPROPRIATE FOR HOME HEALTH SERVICES AT THIS TIME. PT PLANS TO DISCHARGE HOME WITH HIS SISTER, PT REPORTS HIS SISTER WILL PICK HIM UP FOR DISCHARGE HOME. PT DECLINES [facility], DETENTION OR REHAB PLACEMENT. Hotel Or Motel Room Service Supervisor: Brandin Garcia DCPIA - Discharge Planning Initial Assessment Updated by [id number]: Brandin Garcia on 04/22/19 11:13 am * Is the patient Alert and Oriented? Yes * How many steps to enter\\exit or inside your home? NONE * PCP DR. ARACELI SIDHU * Pharmacy [facility] * Preadmission Environment Home with Family * ADLs Partial Dependent * Partial ADLs (Assistance needed) Ambulation Bathing Dressing Medication Management Toileting Transfers * Equipment [employer] Lift Oxygen Wheelchair * Other Equipment HOME AND PORTABLE OXYGEN, [facility] * List name and contact numbers for known caregivers / representatives who currently or will assist patient after discharge: HANDY JONES, SISTER [phone] JORGE GORDON, SISTER, CHARLEY PHILLIPS, SON, * Verbal permission to speak to the caregivers and representatives has been obtained from the patient. Yes * Community resources currently utilized None * Please name any agencies selected above. PT HAD INTAKE WITH [facility] FROM [place], ACCORDING TO PT, THEY DECLINED T PROVIDE SERVICES UNTIL HE WAS "DOING BETTER" OUTPATIENT DIALYSIS , [facility], [facility], [facility]. PT REPORTS HE HAS BEEN DRIVING HIMSELF. * Additional services required to return to the preadmission environment? No * Can the patient safely return to the preadmission environment? Yes * Has this patient been hospitalized within the prior 30 days at any hospital? Yes Coverage Notice Reviewer: [id number] Skylar Deborahbon Augustin Notice Issued Date-Time: 04/19/2019 9:30 Notice Type: Medicare Outpatient Observation Notice Notice Delivered To: Patient Relationship to Patient: Self Receiving Supervisor Name: Delivery Method: HAND - Hand Delivered Anusha Days: Prior Verbal Notification: Recipient Understood Notice: Yes Recipient Signature: Yes Med Rec Note Co-signed by Attending: Coverage Notice Comment: Reviewer: [id number] Garcia Notice Issued Date-Time: 04/19/2019 12:15 Notice Type: Patient Choice Letter Notice Delivered To: Patient Relationship to Patient: Receiving Supervisor Name: Delivery Method: HAND - Hand Delivered Anusha Days: Prior Verbal Notification: Recipient Understood Notice: Yes Recipient Signature: Yes Med Rec Note Co-signed by Attending: Coverage Notice Comment: [facility] Reviewer: [id number] Garcia Notice Issued Date-Time: 04/21/2019 11:45 Notice Type: IM Discharge Notice Notice Delivered To: Patient Relationship to Patient: Receiving Supervisor Name: Delivery Method: HAND - Hand Delivered Anusha Days: Prior Verbal Notification: Recipient Understood Notice: Yes Recipient Signature: Yes Med Rec Note Co-signed by Attending: Coverage Notice Comment: Reviewer: [id number] Garcia Notice Issued Date-Time: 04/22/2019 16:05 Notice Type: Patient Choice Letter Notice Delivered To: Patient Relationship to Patient: Receiving Supervisor Name: Delivery Method: HAND - Hand Delivered Anusha Days: Prior Verbal Notification: Recipient Understood Notice: Yes Recipient Signature: Yes Med Rec Note Co-signed by Attending: Coverage Notice Comment: [facility] DETENTION FACILITY. Last DP export: 04/29/19 2:21 Patient Name: ABBY PHILLIPS Page [id number] at 0858 All edits/amendments must be made on the electronic document DICTATION DATE: 05/02/19857 CHILI PEPPER GRINDER: APRIL 05/02/19857 RPT#: [id number] DC DATE: STATUS: ADM IN [facility] [address] [place] [address] END OF REPORT
--- NOTE | 2019-05-02 09:11 | MORECARE ---
CASE MANAGEMENT DISCHARGE SUMMARY PATIENT: ABBY PHILLIPS UNIT: [id number] ADM DATE: 04/19/19 AGE: 73 : 49 SEX: M ROOM/BED: D.8873 AUTHOR: BYRON,DOC PHYSICIAN: REFERRING PHYSICIAN: SAMUEL COOPER MD DATE OF SERVICE: 05/02/19 Discharge Plan Patient Name: ABBY PHILLIPS Facility: [facility]:[employer] : 1945 Planned Disposition: Prison Facility Anticipated Discharge Date: 05/02/19 Discharge Date: Expected LOS: 13 Initial Reviewer: [id number] Initial Review Date: 04/18/2019 Generated: 05/02/19 10:11 am Comments DCP- Discharge Planning Updated by [id number]: Brandin Garcia on 05/02/19 8:[address] Patient Name: ABBY PHILLIPS Encounter No: [id number] : 1945 Primary Insurance: [facility] MEDICARE SOLUTIONS Anticipated DC Date: 05-02-2019 Planned Disposition: Prison Facility External Planned Provider: [facility], MEDICARE REHAB BED DCP follow-up note: CM FAXED UPDATE TO [facility] AT [phone]. CM CALLED [facility], , WAS ADVISED BY ISAIAH THAT ADMISSIONS STAFF WERE IN THEIR MORNING MEETING; CM LEFT MESSAGE ASKING FOR UPDATE ON REHAB REFERRAL WITH CM CONTACT INFORMATION. CM FAXED REFERRAL UDPATE FOR [facility] AT [phone]. BETINA OF THE [facility], , WILL SCREEN PT FOR REHAB ADMISSION, TODAY, , TO ASSESS PT FOR ADMISSION; THE [facility] IS IN NETWORK WITH PT'S INSURANCE.. PT HAS BEEN DECLINED BY THE [facility]; CM WAITING ADMISSION DETERMINATIONS FROM [facility] AND THE [facility] FOR REHAB PLACEMENT. IF ACCEPTED AT EITHER FACILITY, CM WILL REQUEST CHANGE OF OUTPATIENT DIALYSIS UNIT. Brandin Garcia, CASE MANAGEMENT DCP- Discharge Planning Updated by [id number]: Brandin Garcia on 04/29/19 2:[address] Patient Name: ABBY PHILLIPS Encounter No: [id number] : 1945 Primary Insurance: [facility] MEDICARE SOLUTIONS Anticipated DC Date: 05-02-2019 Planned Disposition: Prison Facility External Planned Provider: [facility], MEDICARE REHAB BED DCP follow-up note: CM RECEIVED CALL FROM PRASHANTH OF THE [facility] [place], THEY WILL NOT ACCEPT ANOTHER DIALYSIS PATIENT AT THIS TIME. CM CALLED [facility], , WAS ADVISED THAT ADMISSIONS STAFF WERE IN MEETING; CM LEFT MESSAGE ASKING FOR UPDATE ON REHAB REFERRAL WITH CM CONTACT INFORMATION. CM CALLED AND SPOKE TO BETINA OF THE [facility], ; BETINA INFORMED CM THAT SHE HAS SEVERAL HOMES IN THE [place] AREA AND WILL SCREEN PT FOR REHAB ADMISSION, SHE WILL PERSONALLY COME TO HOSPITAL ON THURSDAY, , TO ASSESS PT FOR ADMISSION; THE [facility] IS IN NETWORK WITH PT'S INSURANCE. CM FAXED REFERRAL FOR THE [facility] AT [phone]. CM UPDATED PT WHO REPORTS WANTING REHAB PLACEMENT IN [place] CLOSE TO HIS SON POSSIBLE. CM UPDATE DR. COOPER VIA PHONE. DR. COOPER ADVISED THAT PT IS READY TO DISCHARGE TO REHAB WHEN ACCEPTED. PT HAS BEEN DECLINED BY THE [facility]; CM WAITING ADMISSION DETERMINATIONS FROM [facility] AND THE [facility] FOR REHAB PLACEMENT. IF ACCEPTED AT EITHER FACILITY, CM WILL REQUEST CHANGE OF OUTPATIENT DIALYSIS UNIT. Brandin Garcia, CASE MANAGEMENT DCP- Discharge Planning Updated by [id number]: Brandin Garcia on 04/29/19 6:[address] Patient Name: ABBY PHILLIPS Encounter No: [id number] : 1945 Primary Insurance: [facility] MEDIC[facility] SOLUTIONS Anticipated DC Date: 04-21-2019 Planned Disposition: Prison Facility External Planned Provider:[facility] OR THE [facility] IN [place], MEDICARE REHAB BED DCP follow-up note: CM REVIEWED CHART, PT DID PARTICIPATE WITH THERAPY ON 04-27-19 AND 04-28-19. PT HAS DEMONSTRATED ABILITY TO TRANSFER AND SIT IN CHAIR FOR THREE OR MORE HOURS. CM FAXED REFERRAL UPDATE TO [facility] AT [phone]. AND THE [facility] AT [phone]. CM WAITING ADMISSION DETERMINATIONS FROM [facility] AND THE [facility]. IF EITHER FACLITY WILL ACCEPT, CM WILL REQUEST CHANGE OF DIALYSIS UNIT. PT'S INSURANCE ALSO REQUIRES PRIOR AUTHORIZATION FOR REHAB PLACEMENT. Brandin Garcia CASE MANAGEMENT DCP- Discharge Planning Updated by [id number]: Brandin Garcia on 04/28/19 6:[address] Patient Name: ABBY PHILLIPS Encounter No: [id number] : 1945 Primary Insurance: [facility] MEDICARE SOLUTIONS Anticipated DC Date: 04-21-2019 Planned Disposition: Prison Facility External Planned Provider: [facility] OR [facility] IN [place], MEDICARE REHAB BED DCP follow-up note: CM REVIEWED CHART, PT DID PARTICIPATE WITH THERAPY ON 04-27-19. PT DID SIT UP IN CHAIR FOR THREE OR MORE HOURS. CM FAXED REFERRAL UPDATE TO [facility] AT [phone]. AND THE [facility] AT [phone]. CM WAITING ADMISSION DETERMINATIONS FROM [facility] AND THE [facility]. IF EITHER FACLITY WILL ACCEPT, CM WILL REQUEST CHANGE OF DIALYSIS UNIT. PT'S INSURANCE ALSO REQUIRES PRIOR AUTHORIZATION FOR REHAB PLACEMENT. Brandin Garcia CASE MANAGEMENT DCP- Discharge Planning Updated by [id number]: Brandin Garcia on 04/27/19 11:[address] Patient Name: ABBY PHILLIPS Encounter No: [id number] : 1945 Primary Insurance: [facility] MED[facility] SOLUTIONS Anticipated DC Date: 04-21-2019 Planned Disposition: Prison Facility External Planned Provider: [facility] OR [facility] IN [place], MEDICARE REHAB BED DCP follow-up note: CM REVIEWED CHART, PT DID NOT PARTICIPATE WITH THERAPY ON 04-26-19. CM MET WITH PT IN ROOM TO DISCUSS DISCHARGE PLANNING AND NEEDS. PT DOES NOT WANT [facility] C[facility] OR HOSPICE. PT INSISTS THAT HE WANTS REHAB SERVICES. CM EXPLAINED THAT PT HAS TO PARTICIPATE FULLY WITH THERAPY EACH TIME OFFERED INSURANCE WILL NOT PAY FOR REHAB SERVICES WITHOUT PARTICIPATION WITH OFFERED THERAPY. PT REPORTS UNDERSTANDING. PT PROMISES TO PARTICIPATE WITH THERAPY SERVICES AND UNDERSTANDS THAT HE MUST SIT UP IN CHAIR FOR THREE OR MORE HOURS TO SHOW HE CAN GO TO OUTPATIENT DIALYSIS. CM RECEIVED CALL FROM MATILDA OF THE [facility] WHO WILL FOLLOW, BUT WILL ONLY CONSIDER IF PT IS PARTICIPATING WITH THERAPY. CM TO FAX REFERRAL UPDATE ST[facility] AT [phone]. AND THE [facility] AT [phone], ONCE NEW THERAPY NOTES ARE DOCUMENTED ON 04-27. CM WAITING ADMISSION DETERMINATIONS FROM [facility] AND THE [facility]. IF EITHER FACLITY WILL ACCEPT, CM WILL REQUEST CHANGE OF DIALYSIS UNIT. PT'S INSURANCE ALSO REQUIRES PRIOR AUTHORIZATION FOR REHAB PLACEMENT. Brandin Garcia, CASE MANAGEMENT DCP- Discharge Planning Updated by [id number]: Brandin Garcia on 04/26/19 8:[address] Patient Name: ABBY PHILLIPS Encounter No: [id number] : 1945 Primary Insurance: [facility] MEDIC[facility] SOLUTIONS Anticipated DC Date: 04-21-2019 Planned Disposition: Prison Facility External Planned Provider:[facility] OR [facility] IN [place], MEDICARE REHAB BED DCP follow-up note: CM [facility] AT [phone]. CM FAXED REFERRAL UDPATE FOR THE [facility] TO PRASHANTH AT [phone]. CM TO DISCUSS WITH REHAB TODAY THAT PT NEEDS TO HAVE DEMONSTRATED ABILITY TO SIT FOR THREE OR MORE HOURS IN CHAIR FOR OUTPATIENT DIALYSIS. CM WAITING ADMISSION DETERMINATIONS FROM [facility] AND THE [facility]. Brandin Garcia, CASE MANAGEMENT DCP- Discharge Planning Updated by [id number]: Brandin Garcia on 04/25/19 1:[address] Patient Name: ABBY PHILLIPS Encounter No: [id number] : 1945 Primary Insurance: [facility] SOLUTIONS Anticipated DC Date: 04-21-2019 Planned Disposition: Prison Facility External Planned Provider: [facility] OR [facility] IN [place], MEDICARE REHAB BED DCP follow-up note: CM RECEIVED CALL FROM CHARLEY PHILLIPS, PT'S SON, WHO ASKED WHAT IS TAKING SO LONG TO GET PT INTO REHAB IN [place]. CM EXPLAINED PLACEMENT PROCESS, INSURANCE APPROVAL TIME FRAME AND ALSO THE PROCESS OF HAVING TO GET ACCEPTING DIALYSIS UNIT IF CM CAN GET FACILITY TO ACCEPT PT. CHARLEY REPORTS UNDERSTANDING. CM CALLED [facility], , SPOKE TO SYD WHO INFORMED CM THAT SHE DID NOT GET THE REFERRAL. CM CONFIRMED FAX NUMBER, REVIEWED AND FOUND FAX CONFIRMATION FROM THURSDAY. CM FAXED REFERRAL AND UPDATE TO [facility] AT [phone]. CM SPOKE PRASHANTH OF THE [facility], , [facility] AND GET UPDATE SHE HAS NOT "HEARD A WORD". CM FAXED REFERRAL UDPATE FOR THE [facility] TO PRASHANTH AT [phone]. CM WAITING ADMISSION DETERMINATIONS FROM [facility] AND THE [facility]. Brandin Garcia, CASE MANAGEMENT DCP- Discharge Planning Updated by [id number]: Brandin Garcia on 04/22/19 10:[address] Patient Name: ABBY PHILLIPS Encounter No: [id number] : 1945 Primary Insurance: [facility] MEDIC[facility] SOLUTIONS Anticipated DC Date: 04-21-2019 Planned Disposition: Prison Facility External Planned Provider: [place] IN [place], MEDICARE REHAB BED DCP follow-up note: CM SPOKE TO PT IN ROOM REGARDING DISCHARGE PLANNING. PT WILL GO TO REHAB IN [place] SO HE WILL BE CLOSE TO HIS SON. PT ASKED HARSHAL TO HURRY UP HE IS TIRED OF BEING IN THE HOSPITAL. CM EXPLAINED TO PT THAT IF HE WOULD HAVE DECIDED SOONER, CM WOULD HAVE ALREADY BEEN WORKING ON REHAB PLACEMENT. PT SIGNED CONSENT FOR [facility] SUGGESTED BY HIS SON AND FOR ANY [facility] REHAB IN [place]. CM EXPLAINED TO PT THAT HIS INSURANCE MAY TAKE SEVERAL DAYS TO APPROVE OR DECLINE REHAB SERVICES AND THAT CM WILL HAVE TO FIND A FACILITY THAT WILL TRANSPORT TO DIALYSIS AND IF ALL OF THAT IS DONE, CM WILL HAVE TO REQUEST A NEW DIALYSIS UNIT. PT REPORTS UNDERSTANDING. CM CALLED [facility], , SPOKE TO KAVIN WHO WILL SCREEN FOR ADMISSION. CM [facility]ED REFERRAL TO [facility] AT [phone]. CM NOTIFIED PRASHANTH OF THE [facility], , OF REFERRAL. CM FAXED REFERRAL FOR THE [facility] TO PRASHANTH AT [phone]. CM WAITING ADMISSION DETERMINATIONS FROM [facility] AND THE [facility]. Brandin Garcia CASE MANAGEMENT DCP- Discharge Planning Updated by [id number]: Brandin Garcia on 04/21/19 4:[address] Patient Name: ABBY PHILLIPS Encounter No: [id number] : 1945 Primary Insurance: [facility] MED[facility] SOLUTIONS Anticipated DC Date: 04-21-2019 Planned Disposition: Prison Facility External Planned Provider: [facility] OR OTHER DETENTION IN [place] DCP follow-up note: CM RECEIVED CALL FROM CHARLEY PHILLIPS, PT'S SON, WHO REPORTS THAT HE HAS TALKED TO PT VIA PHONE AND PT IS NOW AGREEING TO GO TO DETENTION REHAB IN [place], CLOSE TO HIS SON. CM ATTEMPTED TO SEE PT WHO WAS OUT OF ROOM AT APPROXIMATELY 1345 HOURS. CM WILL SPEAK TO PT SOON POSSIBLE REGARDING DETENTION REHAB IN [place] AND SEND REFERRALS IF PT WILL SIGN THE CONSENT. Brandin Garcia CASE ROXANNA DCP- Discharge Planning Updated by [id number]: Brandin Garcia on 04/21/19 11:[address] Patient Name: ABBY PHILLIPS Encounter No: [id number] : 1945 Primary Insurance: [facility] MED[facility] SOLUTIONS Anticipated DC Date: 04-21-2019 Planned Disposition: Left Against Medical Advice DCP follow-up note: CM SPOKE TO BEDSIDE NURSE WHO REPORTS PT'S SISTER, JORGE, CALLED AND STATES SHE WILL NOT BE PICKING PT UP FOR TRANSPORT HOME. CM MET WITH PT IN ROOM TO DISCUSS DISCHARGE PLANNING AND NEEDS. PT REPORTS STILL PLANNING TO LEAVE WHEN HE FINDS A RIDE. CM EXPLAINED THAT PT'S FAMILY MEMBERS ARE CALLING AND INFORMING HOSPITAL STAFF THEY ARE NOT PICKING UP PT. PT STATES HE HAS FRIENDS THAT ARE GOING TO HELP. CM PROVIDED PT WITH MEDICARE WEBSITE RESULTS FOR DETENTION REHABS WITHIN 50 MILES OF HIS HOME. CM EXPLAINED THAT [facility] WILL NOT ACCEPT PT BACK AND THAT IF PT CHANGES HIS MIND AND DECIDES TO GO TO REHAB, CM WILL NEED PT'S TOP TWO SELECTIONS AND SIGNATURE ON THE CHOICE FORM. IMPORTANT MESSAGE FROM MEDICARE PROVIDED AND EXPLAINED. PT ASKED CM TO CALL ADAM SANCHES, PHARMACIST AT [facility] TO HAVE HER , JOHN SANCHES, CALL PT. CM CALLED AND WAS ADVISED BY ADAM THAT AGUSTIN SPOKE TO PT YESTERDAY AND SHE WILL LET HER KNOW THAT PT WANTS TO TALK TO HIM AGAIN. CM STILL REFUSING DETENTION FACLITY PLACEMENT. CM WAITING ON PT TO DEVELOP TRANSPORTATION HOME. IF TRANSPORTATION IS VERIFIED, CALL JEANNIE [phone], RAYNE HAS AGREED TO ARRANGE PORTABLE OXGYEN TO HOSPITAL FOR PT TO LEAVE HOSPITAL. CM TO CONTINUE TO FOLLOW AND ASSIST NEEDED. Auto Glass Worker: Brandin Garcia DCP- Discharge Planning Updated by [id number]: Brandin Garcia on 04/21/19 8:[address] Patient Name: ABBY PHILLIPS Encounter No: [id number] : 1945 Primary Insurance: [facility] MEDIC[facility] SOLUTIONS Anticipated DC Date: 04-21-2019 Planned Disposition: Left Against Medical Advice DCP follow-up note: CM SPOKE TO HERIBERTO SANCHES REGARDING PT'S DISCHARGE PLAN. TREATMENT TEAM CONCERNED THAT PT DOES NOT HAVE SAFE DISCHARGE PLAN. CM MET WITH HERIBERTO SANCHES WITH PT IN ROOM. PT INSISTS THAT HE WILL GO HOME, JOHN SANCHES, , WILL PICK HIM UP. PT REPORTS ALEXSANDRA LOPEZ, A FRIEND FROM [facility] WILL ASSIST WITH CARING FOR PT IN HOME AND ASSIST WITH GETTING TO AND FROM DIALYSIS. PT REPORTS HE NORMALLY DRIVES HIMSELF TO AND FROM DIALYSIS AND IS ABLE TO TRANSFER HIMSELF TO A WHEELCHAIR, GET TO HIS CAR, GET THE WHEELCHAIR INTO THE TRUCK OF THE CAR AND THEN WALK TO AND GET INTO THE DRIVERS SEAT HOLDING ON TO THE CAR. PT REPORTS HAVING ELECTRIC AND MANUAL WHEELCHAIR AND IS ABLE TO TRANSFER HIMSELF FROM BED TO CHAIR AND CHAIR TO BED. PT DOES NOT KNOW THE NUMBER TO HIS FRIEND ALEXSANDRA, TO VERIFY HE WILL ASSIST AFTER DISCHARGE. PT REPORTS HIS SISTER HANDY LIVES IN HIS HOUSE AND HAS FOR FOUR MONTHS. CM ADVISED THAT FAMILY INFORMED STAFF HERE THAT PT NEEDS NURSING REHAB. PT REPORTS THAT HIS FAMILY IS WANTING TO KEEP HIM AWAY AND IN THE GROUP HOME. HERIBERTO SANCHES ADVISED THAT PT MUST HAVE A SAFE AND VERIFIABLE PLAN TO DISCHARGE HOME. CM ATTEMPTED TO CALL JOHN SANCHES, ; THERE WAS NO ANSWER AND NO MESSAGE MACHINE. CM CALLED [facility], , SPOKE TO DOLL DRESSER RAYNE WHO INFORMED CM THAT THEY CAN DELIVER PORTABLE OXYGEN TO PT'S ROOM FOR DISCHARGE IF NEEDED. HARSHAL SPOKE TO PT IN ROOM, HERIBERTO SANCHES WAS IN ROOM SPEAKING TO PT. PT STATES HE IS LEAVING "AMA". HERIBERTO SANCHES INFORMED PT THAT PT MUST HAVE A PERSON TO VERIFY THEY ARE TRANSPORTING PRIOR TO ANY AMA FORMS BEING PRESENTED. CM ADVISED PT IF HE IS ABLE TO VERIFY TRANSPORATATION BY CM SPEAKING TO THAT PERSON AND THEY AGREE TO HUMAN SERVICE COORDINATOR PT, CM WILL ASK CHADE TO DELIVER PORTABLE OXYGEN TO ROOM. CM ASKED THAT IF PT CHANGES HIS MIND AND DECIDES TO GO TO DETENTION REHAB, TO PLEASE NOTIFY CM AND CM WILL BE GLAD TO ASSIST WITH PLACEMENT. PT DECLINED. CM WAITING ON PT TO DEVELOP TRANSPORTATION HOME. IF TRANSPORTATION IS VERIFIED, CALL JEANNIE, , WILL HAS AGREED TO ARRANGE PORTABLE OXGYEN TO HOSPITAL FOR PT TO LEAVE HOSPITAL. CM TO CONTINUE TO FOLLOW AND ASSIST NEEDED. Auto Glass Worker: Brandin Garcia DCP- Discharge Planning Updated by [id number]: Brandin Garcia on 04/20/19 1:[address] Patient Name: ABBY PHLILIPS Encounter No: [id number] : 1945 Primary Insurance: [facility] MED[facility] SOLUTIONS Anticipated DC Date: 04-19-2019 Planned Disposition: Home DCP follow-up note: CM MET WITH PT IN ROOM AND ENCOURAGED PT TO GO TO REHAB PRIOR TO DISCHARGE HOME. PT CONTINUES TO REFUSE AND REPORTS HIS SISTER WILL PICK HIM UP FOR DISCHARGE HOME. PT STATES HE MAY NEED OXYGEN FROM [facility] AGAIN TO GO HOME. HARSHAL EXPLAINED THAT IF HIS SISTER IS PICKING HIM UP AND SHE IS STAYING WITH PT IN PT'S HOME, SHE SHOULD BRING OXYGEN WITH HER. PT WILL REQUEST HIS SISTER BRING OXYGEN WITH HER. HARSHAL RECEIVED CALL FROM MIRIAM GORDON, , WHO INFORMED CM THAT PT HAS BEEN CALLING STATING HE IS GOING TO BE DISCHARGED TODAY AND NEEDS A RIDE HOME. JORGE STATES PT NEEDS TO GO BACK TO NURSING FACILITY FOR REHAB AND NOT HOME. HARSHAL EXPLAINED THAT CM CANNOT MAKE PT DO SOMETHING AGAINST PT'S WILL AND THAT IF PT IS NOT DEEMED INCOMPETENT BY A PHYSICIAN OR COURT, PT CAN MAKE BAD DECISIONS FOR HIMSELF. HARSHAL EXPLAINED HOW TO FILE FOR GUARDIANSHIP OF A PERSON AND THAT THIS WOULD HAVE TO BE GRANTED FOR ANYONE TO MAKE PT DO SOMETHING AGAINST HIS WILL. JORGE REPORTS UNDERSTANDING. PT PLANS TO DISCHARGE HOME WITH HIS SISTER, PT REPORTS HIS SISTER WILL PICK HIM UP FOR DISCHARGE HOME. PT DECLINES GROUP HOME, DETENTION OR REHAB PLACEMENT. PATIENT IS NOT APPROPRIATE FOR HOME HEALTH PER [facility]. Auto Glass Worker: Brandin Garcia DCP- Discharge Planning Updated by [id number]: Brandin Garcia on 04/19/19 3:[address] Patient Name: ABBY PHILLIPS Admission Status: ER Accout number: [id number] Admission Date: 04-19-2019 : 1945 Admission Diagnosis: Attending: SAMUEL COOPER Current LOS: 1 Anticipated DC Date: 04-19-2019 Planned Disposition: Home Primary Insurance: [facility] MEDIC[facility] SOLUTIONS Discharge Planning Comments: CM MET WITH PT IN ROOM TO DISCUSS DISCHARGE PLANNING AND NEEDS. PT REPORTS LIVING AT HOME DEPENDENTLY WITH HIS SISTER HANDY WHO IS STAYING WITH PT IN PT'S HOME TO CARE FOR PT. . PT HAS [employer] L[employer] AND WHEELCHAIR WELL HOME AND PORTABLE OXYGEN FROM [facility]. PT HAS NO OUTSIDE SERVICES ASSISTING IN THE HOME [facility] DECLINED TO ADMIT HIM AND TOLD HIM HE HAS TO BE DOING BETTER FOR HOME HEALTH SERVICES. CM DISCUSSED AVAILABILITY OF HOME HEALTH, REHAB SERVICES AND MEDICAL EQUIPMENT. PT DECLINED GROUP HOME OR REHAB PLACEMENT. PT DENIES DISCHARGE NEEDS, REPORTS HIS SISTER HANDY WILL PICK HIM UP FOR DISCHARGE HOME. PT REPORTS MISSING DIALYSIS BECAUSE HE WENT ON THURSDAY AND THEY DID NOT HAVE A SLING TO USE ON THE LIFT TO PICK HIM UP AT THE DIALYSIS UNIT. PT STATES HE HAS A SLING AT HOME AND FORGOT ABOUT IT. PT REPORTS HIS SISTER USES THE [employer] LIFT TO GET HIM TO THE WHEELCHAIR AND THEY WILL LEAVE THE SLING UNDER HIM FOR DIALYSIS TO USE FROM NOW ON. CHOICE SIGNED FOR [facility] TO VERIFY WITH THEM THAT THEY WILL NOT SEE PT. CM CALLED [employer] [facility], , LEFT MESSAGE ASKING FOR THE NURSE TO CALL CM BACK. PT PLANS TO DISCHARGE HOME WITH HIS SISTER, PT REPORTS HIS SISTER WILL PICK HIM UP FOR DISCHARGE HOME. PT DECLINES GROUP HOME, DETENTION OR REHAB PLACEMENT. Auto Glass Worker: Brandin Garcia Appended by Brandin Garcia on 04/19/2019 16:56 CDT: CM RECEIVED CALL FROM JERICA OF [facility] WHO INFORMED CM THAT THEY DID GO FOR THE HOME HEALTH ADMIT AND INFORMED PT AND FAMILY THAT PT NEEDS REHAB AND IS NOT APPROPRIATE FOR HOME HEALTH SERVICES AT THIS TIME. PT PLANS TO DISCHARGE HOME WITH HIS SISTER, PT REPORTS HIS SISTER WILL PICK HIM UP FOR DISCHARGE HOME. PT DECLINES GROUP HOME, DETENTION OR REHAB PLACEMENT. Auto Glass Worker: Brandin Garcia DCPIA - Discharge Planning Initial Assessment Updated by [id number]: Brandin Garcia on 04/22/19 11:13 am * Is the patient Alert and Oriented? Yes * How many steps to enter\\exit or inside your home? NONE * PCP DR. ARACELI SIDHU * Pharmacy [facility] * Preadmission Environment Home with Family * ADLs Partial Dependent * Partial ADLs (Assistance needed) Ambulation Bathing Dressing Medication Management Toileting Transfers * Equipment [employer] Lift Oxygen Wheelchair * Other Equipment HOME AND PORTABLE OXYGEN, [facility] * List name and contact numbers for known caregivers / representatives who currently or will assist patient after discharge: HANDY JONES, SISTER [phone] JORGE GORDON, SISTER, CHARLEY PHILLIPS, SON, * Verbal permission to speak to the caregivers and representatives has been obtained from the patient. Yes * Community resources currently utilized None * Please name any agencies selected above. PT HAD INTAKE WITH Celly FROM [facility], ACCORDING TO PT, THEY DECLINED T PROVIDE SERVICES UNTIL HE WAS "DOING BETTER" OUTPATIENT DIALYSIS , [facility], [facility], [facility]. PT REPORTS HE HAS BEEN DRIVING HIMSELF. * Additional services required to return to the preadmission environment? No * Can the patient safely return to the preadmission environment? Yes * Has this patient been hospitalized within the prior 30 days at any hospital? Yes Coverage Notice Reviewer: [id number] - Deobrah Augustin Notice Issued Date-Time: 04/19/2019 9:30 Notice Type: Medicare Outpatient Observation Notice Notice Delivered To: Patient Relationship to Patient: Self Digital Printer Operator Name: Delivery Method: HAND - Hand Delivered Anusha Days: Prior Verbal Notification: Recipient Understood Notice: Yes Recipient Signature: Yes Med Rec Note Co-signed by Attending: Coverage Notice Comment: Reviewer: [id number] - Brandin Garcia Notice Issued Date-Time: 04/22/2019 16:05 Notice Type: Patient Choice Letter Notice Delivered To: Patient Relationship to Patient: Digital Printer Operator Name: Delivery Method: HAND - Hand Delivered Anusha Days: Prior Verbal Notification: Recipient Understood Notice: Yes Recipient Signature: Yes Med Rec Note Co-signed by Attending: Coverage Notice Comment: [facility]. Reviewer: [id number] Skylar Garcia Notice Issued Date-Time: 04/19/2019 12:15 Notice Type: Patient Choice Letter Notice Delivered To: Patient Relationship to Patient: Digital Printer Operator Name: Delivery Method: HAND - Hand Delivered Anusha Days: Prior Verbal Notification: Recipient Understood Notice: Yes Recipient Signature: Yes Med Rec Note Co-signed by Attending: Coverage Notice Comment: [facility] Reviewer: [id number] Skylar Garcia Notice Issued Date-Time: 04/21/2019 11:45 Notice Type: IM Discharge Notice Notice Delivered To: Patient Relationship to Patient: Digital Printer Operator Name: Delivery Method: HAND - Hand Delivered Anusha Days: Prior Verbal Notification: Recipient Understood Notice: Yes Recipient Signature: Yes Med Rec Note Co-signed by Attending: Coverage Notice Comment: Last DP export: 05/02/19 7:58 Patient Name: ABBY PHILLIPS Page [id number] at 0911 All edits/amendments must be made on the electronic document DICTATION DATE: 05/02/19910 PROCEDURE MANAGER: APRIL 05/02/19910 RPT#: [id number] DC DATE: STATUS: ADM IN [facility] [address] [place] [address] END OF REPORT
--- NOTE | 2019-05-02 10:35 | NUR ---
I have reviewed this patient and I concur with the Shift Assessment completed by the Licensed Practical Nurse today this shift.
[2019-05-02 11:27] VITALS: BP 138/48
--- NOTE | 2019-05-02 11:29 | MORECARE ---
CASE MANAGEMENT DISCHARGE SUMMARY PATIENT: ABBY PHILLIPS UNIT: [id number] ADM DATE: 04/19/19 AGE: 73 : [birth year] SEX: M ROOM/BED: D.0732 AUTHOR: BYRON,DOC PHYSICIAN: REFERRING PHYSICIAN: SAMUEL COOPER MD DATE OF SERVICE: 05/02/19 Discharge Plan Patient Name: ABBY PHILLIPS Facility: [facility]:[place] : 1945 Planned Disposition: Shelter Facility Anticipated Discharge Date: 05/02/19 Discharge Date: Expected LOS: 13 Initial Reviewer: [id number] Initial Review Date: 04/18/2019 Generated: 05/02/19 12:28 pm DCP- Discharge Planning Updated by [id number]: Brandin Garcia on 05/02/19 8:[address] Patient Name: ABBY PHILLIPS Encounter No: [id number] : 1945 Primary Insurance: [facility] Anticipated DC Date: 05-02-2019 Planned Disposition: Shelter Facility External Planned Provider: [facility], MEDICARE REHAB BED DCP follow-up note: CM FAXED UPDATE TO [facility] AT [phone]. CM CALLED [facility], , WAS ADVISED BY ISAIAH THAT ADMISSIONS STAFF WERE IN THEIR MORNING MEETING; CM LEFT MESSAGE ASKING FOR UPDATE ON REHAB REFERRAL WITH CM CONTACT INFORMATION. CM FAXED REFERRAL UDPATE FOR [facility] AT [phone]. BETINA OF [facility], , WILL SCREEN PT FOR REHAB ADMISSION, TODAY, , TO ASSESS PT FOR ADMISSION; THE [facility] IS IN NETWORK WITH PT'S INSURANCE.. PT HAS BEEN DECLINED BY THE [facility]; CM WAITING ADMISSION DETERMINATIONS FROM [facility] AND [facility] FOR REHAB PLACEMENT. IF ACCEPTED AT EITHER FACILITY, CM WILL REQUEST CHANGE OF OUTPATIENT DIALYSIS UNIT. Brandin Garcia, CASE MANAGEMENT DCP- Discharge Planning Updated by [id number]: Brandin Garcia on 04/29/19 2:[address] Patient Name: ABBY PHILLIPS Encounter No: [id number] : 1945 Primary Insurance: [facility] Anticipated DC Date: 05-02-2019 Planned Disposition: Shelter Facility External Planned Provider: [facility], MEDICARE REHAB BED DCP follow-up note: CM RECEIVED CALL FROM PRASHANTH OF THE [facility], THEY WILL NOT ACCEPT ANOTHER DIALYSIS PATIENT AT THIS TIME. CM CALLED [facility], , WAS ADVISED THAT ADMISSIONS STAFF WERE IN MEETING; CM LEFT MESSAGE ASKING FOR UPDATE ON REHAB REFERRAL WITH CM CONTACT INFORMATION. CM CALLED AND SPOKE TO BETINA OF [facility], ; BETINA INFORMED CM THAT SHE HAS SEVERAL HOMES IN THE [place] AREA AND WILL SCREEN PT FOR REHAB ADMISSION, SHE WILL PERSONALLY COME TO HOSPITAL ON THURSDAY, , TO ASSESS PT FOR ADMISSION; THE [facility] IS IN NETWORK WITH PT'S INSURANCE. CM FAXED REFERRAL FOR [facility] AT [phone]. CM UPDATED PT WHO REPORTS WANTING REHAB PLACEMENT IN [place] CLOSE TO HIS SON POSSIBLE. CM UPDATE DR. COOPER VIA PHONE. DR. COOPER ADVISED THAT PT IS READY TO DISCHARGE TO REHAB WHEN ACCEPTED. PT HAS BEEN DECLINED BY THE [facility]; CM WAITING ADMISSION DETERMINATIONS FROM [facility] AND [facility] FOR REHAB PLACEMENT. IF ACCEPTED AT EITHER FACILITY, CM WILL REQUEST CHANGE OF OUTPATIENT DIALYSIS UNIT. Brandin Garcia, CASE MANAGEMENT DCP- Discharge Planning Updated by [id number]: Brandin Garcia on 04/29/19 6:[address] Patient Name: ABBY PHILLIPS Encounter No: [id number] : 1945 Primary Insurance: [facility] SOLUT[facility] Anticipated DC Date: 04-21-2019 Planned Disposition: Shelter Facility External Planned Provider:[facility] IN [place], MEDICARE REHAB BED DCP follow-up note: CM REVIEWED CHART, PT DID PARTICIPATE WITH THERAPY ON 04-27-19 AND 04-28-19. PT HAS DEMONSTRATED ABILITY TO TRANSFER AND SIT IN CHAIR FOR THREE OR MORE HOURS. CM FAXED REFERRAL UPDATE TO [facility] AT [phone]. AND THE [facility] AT [phone]. CM WAITING ADMISSION DETERMINATIONS FROM [facility] AND [facility]. IF EITHER FACLITY WILL ACCEPT, CM WILL REQUEST CHANGE OF DIALYSIS UNIT. PT'S INSURANCE ALSO REQUIRES PRIOR AUTHORIZATION FOR REHAB PLACEMENT. Brandin Garcia CASE MANAGEMENT DCP- Discharge Planning Updated by [id number]: Brandin Garcia on 04/28/19 6:[address] Patient Name: ABBY PHILLIPS Encounter No: [id number] : 1945 Primary Insurance: [facility] SOLUT[facility] Anticipated DC Date: 04-21-2019 Planned Disposition: Shelter Facility External Planned Provider: [facility] OR [facility] [place], MEDICARE REHAB BED DCP follow-up note: CM REVIEWED CHART, PT DID PARTICIPATE WITH THERAPY ON 04-27-19. PT DID SIT UP IN CHAIR FOR THREE OR MORE HOURS. CM FAXED REFERRAL UPDATE TO [facility] AT [phone]. AND [facility] AT [phone]. CM WAITING ADMISSION DETERMINATIONS FROM [facility] AND [facility]. IF EITHER FACLITY WILL ACCEPT, CM WILL REQUEST CHANGE OF DIALYSIS UNIT. PT'S INSURANCE ALSO REQUIRES PRIOR AUTHORIZATION FOR REHAB PLACEMENT. Brandin Garcia CASE ROXANNA DCP- Discharge Planning Updated by [id number]: Brandin Garcia on 04/27/19 11:[address] Patient Name: ABBY PHILLIPS Encounter No: [id number] : 1945 Primary Insurance: [facility] Anticipated DC Date: 04-21-2019 Planned Disposition: Shelter Facility External Planned Provider: [facility] OR [facility] IN [place], MEDICARE REHAB BED DCP follow-up note: CM REVIEWED CHART, PT DID NOT PARTICIPATE WITH THERAPY ON 04-26-19. CM MET WITH PT IN ROOM TO DISCUSS DISCHARGE PLANNING AND NEEDS. PT DOES NOT WANT [facility] OR HOSPICE. PT INSISTS THAT HE WANTS REHAB SERVICES. CM EXPLAINED THAT PT HAS TO PARTICIPATE FULLY WITH THERAPY EACH TIME OFFERED INSURANCE WILL NOT PAY FOR REHAB SERVICES WITHOUT PARTICIPATION WITH OFFERED THERAPY. PT REPORTS UNDERSTANDING. PT PROMISES TO PARTICIPATE WITH THERAPY SERVICES AND UNDERSTANDS THAT HE MUST SIT UP IN CHAIR FOR THREE OR MORE HOURS TO SHOW HE CAN GO TO OUTPATIENT DIALYSIS. CM RECEIVED CALL FROM MATILDA OF [facility] WHO WILL FOLLOW, BUT WILL ONLY CONSIDER IF PT IS PARTICIPATING WITH THERAPY. CM TO FAX REFERRAL UPDATE [facility] AT [phone]. AND [facility] AT [phone], ONCE NEW THERAPY NOTES ARE DOCUMENTED ON 04-27. CM WAITING ADMISSION DETERMINATIONS FROM [facility] AND [facility]. IF EITHER FACLITY WILL ACCEPT, CM WILL REQUEST CHANGE OF DIALYSIS UNIT. PT'S INSURANCE ALSO REQUIRES PRIOR AUTHORIZATION FOR REHAB PLACEMENT. Brandin Garcia, CASE MANAGEMENT DCP- Discharge Planning Updated by [id number]: Brandin Garcia on 04/26/19 8:[address] Patient Name: ABBY PHILLIPS Encounter No: [id number] : 1945 Primary Insurance: [facility] Anticipated DC Date: 04-21-2019 Planned Disposition: Shelter Facility External Planned Provider:[facility] OR [facility] IN [place], MEDICARE REHAB BED DCP follow-up note: CM FAXED RE[facility]ERRAL[facility] AT [phone]. CM FAXED REFERRAL UDPATE FOR [facility] TO PRASHANTH AT [phone]. CM TO DISCUSS WITH REHAB TODAY THAT PT NEEDS TO HAVE DEMONSTRATED ABILITY TO SIT FOR THREE OR MORE HOURS IN CHAIR FOR OUTPATIENT DIALYSIS. CM WAITING ADMISSION DETERMINATIONS FROM [facility] AND [facility]. Brandin Garcia, CASE MANAGEMENT DCP- Discharge Planning Updated by [id number]: Brandin Garcia on 04/25/19 1:[address] Patient Name: ABBY PHILLIPS Encounter No: [id number] : 1945 Primary Insurance: [facility] Anticipated DC Date: 04-21-2019 Planned Disposition: Shelter Facility External Planned Provider: [facility] IN [place], MEDICARE REHAB BED DCP follow-up note: CM RECEIVED CALL FROM CHARLEY PHILLIPS, PT'S SON, WHO ASKED WHAT IS TAKING SO LONG TO GET PT INTO REHAB IN [place]. CM EXPLAINED PLACEMENT PROCESS, INSURANCE APPROVAL TIME FRAME AND ALSO THE PROCESS OF HAVING TO GET ACCEPTING DIALYSIS UNIT IF CM CAN GET FACILITY TO ACCEPT PT. CHARLEY REPORTS UNDERSTANDING. CM CALLED [facility], , SPOKE TO SYD WHO INFORMED CM THAT SHE DID NOT GET THE REFERRAL. CM CONFIRMED FAX NUMBER, REVIEWED AND FOUND FAX CONFIRMATION FROM THURSDAY. CM FAXED REFERRAL AND UPDATE TO [facility] AT [phone]. CM SPOKE PRASHANTH OF [facility], , [facility] AND GET UPDATE SHE HAS NOT "HEARD A WORD". CM FAXED REFERRAL UDPATE FOR [facility] TO PRASHANTH AT [phone]. CM WAITING ADMISSION DETERMINATIONS FROM [facility] AND [facility]. Brandin Garcia, CASE MANAGEMENT DCP- Discharge Planning Updated by [id number]: Brandin Garcia on 04/22/19 10:[address] Patient Name: ABBY PHILLIPS Encounter No: [id number] : 1945 Primary Insurance: [facility] Anticipated DC Date: 04-21-2019 Planned Disposition: Shelter Facility External Planned Provider: [facility] [place], MEDICARE REHAB BED DCP follow-up note: CM SPOKE TO PT IN ROOM REGARDING DISCHARGE PLANNING. PT WILL GO TO REHAB IN [place] SO HE WILL BE CLOSE TO HIS SON. PT ASKED HARSHAL TO HURRY UP HE IS TIRED OF BEING IN THE HOSPITAL. CM EXPLAINED TO PT THAT IF HE WOULD HAVE DECIDED SOONER, CM WOULD HAVE ALREADY BEEN WORKING ON REHAB PLACEMENT. PT SIGNED CONSENT FOR [facility] SUGGESTED BY HIS SON AND FOR ANY ALF REHAB IN [place]. CM EXPLAINED TO PT THAT HIS INSURANCE MAY TAKE SEVERAL DAYS TO APPROVE OR DECLINE REHAB SERVICES AND THAT CM WILL HAVE TO FIND A FACILITY THAT WILL TRANSPORT TO DIALYSIS AND IF ALL OF THAT IS DONE, CM WILL HAVE TO REQUEST A NEW DIALYSIS UNIT. PT REPORTS UNDERSTANDING. CM CALLED [facility], , SPOKE TO KAVIN WHO WILL SCREEN FOR ADMISSION. CM FAXED REFERRAL TO [facility] AT [phone]. CM NOTIFIED PRASHANTH OF THE [facility], , OF REFERRAL. CM FAXED REFERRAL FOR [facility] TO PRASHANTH AT [phone]. CM WAITING ADMISSION DETERMINATIONS FROM [facility] AND [facility]. Brandin Garcia CASE MANAGEMENT DCP- Discharge Planning Updated by [id number]: Brandin Garcia on 04/21/19 4:[address] Patient Name: ABBY PHILLIPS Encounter No: [id number] : 1945 Primary Insurance: [facility] [employer] Anticipated DC Date: 04-21-2019 Planned Disposition: Shelter Facility External Planned Provider: [facility] OR OTHER ALF IN [place] DCP follow-up note: CM RECEIVED CALL FROM CHARLEY PHILLIPS, PT'S SON, WHO REPORTS THAT HE HAS TALKED TO PT VIA PHONE AND PT IS NOW AGREEING TO GO TO ALF REHAB IN [place], CLOSE TO HIS SON. CM ATTEMPTED TO SEE PT WHO WAS OUT OF ROOM AT APPROXIMATELY 1345 HOURS. CM WILL SPEAK TO PT SOON POSSIBLE REGARDING ALF REHAB IN [place] AND SEND REFERRALS IF PT WILL SIGN THE CONSENT. SELENA Escobedo DCP- Discharge Planning Updated by [id number]: Brandin Garcia on 04/21/19 11:[address] Patient Name: ABBY PHILLIPS Encounter No: [id number] : 1945 Primary Insurance: [facility] [employer]UT[facility] Anticipated DC Date: 04-21-2019 Planned Disposition: Left Against Medical Advice DCP follow-up note: CM SPOKE TO BEDSIDE NURSE WHO REPORTS PT'S SISTER, JORGE, CALLED AND STATES SHE WILL NOT BE PICKING PT UP FOR TRANSPORT HOME. CM MET WITH PT IN ROOM TO DISCUSS DISCHARGE PLANNING AND NEEDS. PT REPORTS STILL PLANNING TO LEAVE WHEN HE FINDS A RIDE. CM EXPLAINED THAT PT'S FAMILY MEMBERS ARE CALLING AND INFORMING HOSPITAL STAFF THEY ARE NOT PICKING UP PT. PT STATES HE HAS FRIENDS THAT ARE GOING TO HELP. CM PROVIDED PT WITH MEDICARE WEBSITE RESULTS FOR ALF REHABS WITHIN 50 MILES OF HIS HOME. CM EXPLAINED THAT [facility] WILL NOT ACCEPT PT BACK AND THAT IF PT CHANGES HIS MIND AND DECIDES TO GO TO REHAB, CM WILL NEED PT'S TOP TWO SELECTIONS AND SIGNATURE ON THE CHOICE FORM. IMPORTANT MESSAGE FROM MEDICARE PROVIDED AND EXPLAINED. PT ASKED CM TO CALL ADAM SANCHES, PHARMACIST AT [facility] TO HAVE HER , JOHN SANCHES, CALL PT. CM CALLED AND WAS ADVISED BY ADAM THAT AGUSTIN SPOKE TO PT YESTERDAY AND SHE WILL LET HER KNOW THAT PT WANTS TO TALK TO HIM AGAIN. CM STILL REFUSING ALF FACLITY PLACEMENT. CM WAITING ON PT TO DEVELOP TRANSPORTATION HOME. IF TRANSPORTATION IS VERIFIED, CALL JEANNIE [phone], RAYNE HAS AGREED TO ARRANGE PORTABLE OXGYEN TO HOSPITAL FOR PT TO LEAVE HOSPITAL. CM TO CONTINUE TO FOLLOW AND ASSIST NEEDED. Bread Oven Operator: Brandin Garcia DCP- Discharge Planning Updated by [id number]: Brandin Garcia on 04/21/19 8:[address] Patient Name: ABBY PHILLIPS Encounter No: [id number] : 1945 Primary Insurance: [facility] SOLUTIONS Anticipated DC Date: 04-21-2019 Planned Disposition: Left Against Medical Advice DCP follow-up note: CM SPOKE TO HERIBERTO SANCHES REGARDING PT'S DISCHARGE PLAN. TREATMENT TEAM CONCERNED THAT PT DOES NOT HAVE SAFE DISCHARGE PLAN. HARSHAL MET WITH HERIBERTO SANCHES WITH PT IN ROOM. PT INSISTS THAT HE WILL GO HOME, JOHN SANCHES, , WILL PICK HIM UP. PT REPORTS ALEXSANDRA LOPEZ, A FRIEND FROM [facility] WILL ASSIST WITH CARING FOR PT IN HOME AND ASSIST WITH GETTING TO AND FROM DIALYSIS. PT REPORTS HE NORMALLY DRIVES HIMSELF TO AND FROM DIALYSIS AND IS ABLE TO TRANSFER HIMSELF TO A WHEELCHAIR, GET TO HIS CAR, GET THE WHEELCHAIR INTO THE TRUCK OF THE CAR AND THEN WALK TO AND GET INTO THE DRIVERS SEAT HOLDING ON TO THE CAR. PT REPORTS HAVING ELECTRIC AND MANUAL WHEELCHAIR AND IS ABLE TO TRANSFER HIMSELF FROM BED TO CHAIR AND CHAIR TO BED. PT DOES NOT KNOW THE NUMBER TO HIS FRIEND ALEXSANDRA, TO VERIFY HE WILL ASSIST AFTER DISCHARGE. PT REPORTS HIS SISTER HANDY LIVES IN HIS HOUSE AND HAS FOR FOUR MONTHS. CM ADVISED THAT FAMILY INFORMED STAFF HERE THAT PT NEEDS NURSING REHAB. PT REPORTS THAT HIS FAMILY IS WANTING TO KEEP HIM AWAY AND IN THE SHELTER. HERIBERTO SANCHES ADVISED THAT PT MUST HAVE A SAFE AND VERIFIABLE PLAN TO DISCHARGE HOME. CM ATTEMPTED TO CALL JOHN SANCHES, ; THERE WAS NO ANSWER AND NO MESSAGE MACHINE. CM CALLED [facility], , SPOKE TO STRAIGHTEDGE MAN RAYNE WHO INFORMED CM THAT THEY CAN DELIVER PORTABLE OXYGEN TO PT'S ROOM FOR DISCHARGE IF NEEDED. HARSHAL SPOKE TO PT IN ROOM, HERIBERTO SANCHES WAS IN ROOM SPEAKING TO PT. PT STATES HE IS LEAVING "AMA". HERIBERTO SANCHES INFORMED PT THAT PT MUST HAVE A PERSON TO VERIFY THEY ARE TRANSPORTING PRIOR TO ANY AMA FORMS BEING PRESENTED. CM ADVISED PT IF HE IS ABLE TO VERIFY TRANSPORATATION BY CM SPEAKING TO THAT PERSON AND THEY AGREE TO CENTRIFUGAL CASTING MACHINE TENDER PT, CM WILL ASK [facility]ADE TO DELIVER PORTABLE OXYGEN TO ROOM. CM ASKED THAT IF PT CHANGES HIS MIND AND DECIDES TO GO TO ALF REHAB, TO PLEASE NOTIFY CM AND CM WILL BE GLAD TO ASSIST WITH PLACEMENT. PT DECLINED. CM WAITING ON PT TO DEVELOP TRANSPORTATION HOME. IF TRANSPORTATION IS VERIFIED, CALL JEANNIE, , WILL HAS AGREED TO ARRANGE PORTABLE OXGYEN TO HOSPITAL FOR PT TO LEAVE HOSPITAL. CM TO CONTINUE TO FOLLOW AND ASSIST NEEDED. Bread Oven Operator: Brandin Garcia DCP- Discharge Planning Updated by [id number]: Brandin Garcia on 04/20/19 1:[address] Patient Name: ABBY PHILLIPS Encounter No: [id number] : 1945 Primary Insurance: [facility] [employer] Anticipated DC Date: 04-19-2019 Planned Disposition: Home DCP follow-up note: CM MET WITH PT IN ROOM AND ENCOURAGED PT TO GO TO REHAB PRIOR TO DISCHARGE HOME. PT CONTINUES TO REFUSE AND REPORTS HIS SISTER WILL PICK HIM UP FOR DISCHARGE HOME. PT STATES HE MAY NEED OXYGEN FROM [facility] AGAIN TO GO HOME. HARSHAL EXPLAINED THAT IF HIS SISTER IS PICKING HIM UP AND SHE IS STAYING WITH PT IN PT'S HOME, SHE SHOULD BRING OXYGEN WITH HER. PT WILL REQUEST HIS SISTER BRING OXYGEN WITH HER. HARSHAL RECEIVED CALL FROM MIRIAM GORDON, , WHO INFORMED CM THAT PT HAS BEEN CALLING STATING HE IS GOING TO BE DISCHARGED TODAY AND NEEDS A RIDE HOME. JORGE STATES PT NEEDS TO GO BACK TO NURSING FACILITY FOR REHAB AND NOT HOME. HARSHAL EXPLAINED THAT CM CANNOT MAKE PT DO SOMETHING AGAINST PT'S WILL AND THAT IF PT IS NOT DEEMED INCOMPETENT BY A PHYSICIAN OR COURT, PT CAN MAKE BAD DECISIONS FOR HIMSELF. HARSHAL EXPLAINED HOW TO FILE FOR GUARDIANSHIP OF A PERSON AND THAT THIS WOULD HAVE TO BE GRANTED FOR ANYONE TO MAKE PT DO SOMETHING AGAINST HIS WILL. JORGE REPORTS UNDERSTANDING. PT PLANS TO DISCHARGE HOME WITH HIS SISTER, PT REPORTS HIS SISTER WILL PICK HIM UP FOR DISCHARGE HOME. PT DECLINES SHELTER, ALF OR REHAB PLACEMENT. PATIENT IS NOT APPROPRIATE FOR HOME HEALTH PER [facility]. Bread Oven Operator: Brandin Garcia DCP- Discharge Planning Updated by [id number]: Brandin Garcia on 04/19/19 3:[address] Patient Name: ABBY PHILLIPS Admission Status: ER Accout number: [id number] Admission Date: 04-19-2019 : 1945 Admission Diagnosis: Attending: SAMUEL COOPER Current LOS: 1 Anticipated DC Date: 04-19-2019 Planned Disposition: Home Primary Insurance: [facility] SOLUT[facility] Discharge Planning Comments: CM MET WITH PT IN ROOM TO DISCUSS DISCHARGE PLANNING AND NEEDS. PT REPORTS LIVING AT HOME DEPENDENTLY WITH HIS SISTER HANDY WHO IS STAYING WITH PT IN PT'S HOME TO CARE FOR PT. . PT HAS [facility] LIFT AND WHEELCHAIR WELL HOME AND PORTABLE OXYGEN FROM [facility]. PT HAS NO OUTSIDE SERVICES ASSISTING IN THE HOME [facility] DECLINED TO ADMIT HIM AND TOLD HIM HE HAS TO BE DOING BETTER FOR HOME HEALTH SERVICES. CM DISCUSSED AVAILABILITY OF HOME HEALTH, REHAB SERVICES AND MEDICAL EQUIPMENT. PT DECLINED SHELTER OR REHAB PLACEMENT. PT DENIES DISCHARGE NEEDS, REPORTS HIS SISTER HANDY WILL PICK HIM UP FOR DISCHARGE HOME. PT REPORTS MISSING DIALYSIS BECAUSE HE WENT ON THURSDAY AND THEY DID NOT HAVE A SLING TO USE ON THE LIFT TO PICK HIM UP AT THE DIALYSIS UNIT. PT STATES HE HAS A SLING AT HOME AND FORGOT ABOUT IT. PT REPORTS HIS SISTER USES THE ARELI LIFT TO GET HIM TO THE WHEELCHAIR AND THEY WILL LEAVE THE SLING UNDER HIM FOR DIALYSIS TO USE FROM NOW ON. CHOICE SIGNED FOR [facility] TO VERIFY WITH THEM THAT THEY WILL NOT SEE PT. CM CALLED [facility], , LEFT MESSAGE ASKING FOR THE NURSE TO CALL CM BACK. PT PLANS TO DISCHARGE HOME WITH HIS SISTER, PT REPORTS HIS SISTER WILL PICK HIM UP FOR DISCHARGE HOME. PT DECLINES SHELTER, ALF OR REHAB PLACEMENT. Bread Oven Operator: Brandin Garcia Appended by Brandin Garcia on 04/19/2019 16:56 CDT: CM RECEIVED CALL FROM JERICA OF [facility] WHO INFORMED CM THAT THEY DID GO FOR THE HOME HEALTH ADMIT AND INFORMED PT AND FAMILY THAT PT NEEDS REHAB AND IS NOT APPROPRIATE FOR HOME HEALTH SERVICES AT THIS TIME. PT PLANS TO DISCHARGE HOME WITH HIS SISTER, PT REPORTS HIS SISTER WILL PICK HIM UP FOR DISCHARGE HOME. PT DECLINES SHELTER, ALF OR REHAB PLACEMENT. Bread Oven Operator: Brandin Garcia DCPIA - Discharge Planning Initial Assessment Updated by [id number]: Brandin Garcia on 04/22/19 11:13 am * Is the patient Alert and Oriented? Yes * How many steps to enter\\exit or inside your home? NONE * PCP DR. ARACELI SIDHU * Pharmacy [facility] * Preadmission Environment Home with Family * ADLs Partial Dependent * Partial ADLs (Assistance needed) Ambulation Bathing Dressing Medication Management Toileting Transfers * Equipment Areli Lift Oxygen Wheelchair * Other Equipment HOME AND PORTABLE OXYGEN, [facility] * List name and contact numbers for known caregivers / representatives who currently or will assist patient after discharge: HANDY JONES, SISTER [phone] JORGE GORDON, SISTER, CHARLEY PHILLIPS, SON, * Verbal permission to speak to the caregivers and representatives has been obtained from the patient. Yes * Community resources currently utilized None * Please name any agencies selected above. PT HAD INTAKE WITH [facility] FROM [facility], ACCORDING TO PT, THEY DECLINED T PROVIDE SERVICES UNTIL HE WAS "DOING BETTER" OUTPATIENT DIALYSIS , [facility], [facility], [facility]. PT REPORTS HE HAS BEEN DRIVING HIMSELF. * Additional services required to return to the preadmission environment? No * Can the patient safely return to the preadmission environment? Yes * Has this patient been hospitalized within the prior 30 days at any hospital? Yes Coverage Notice Reviewer: [id number] - Dbeorah Augustin Notice Issued Date-Time: 04/19/2019 9:30 Notice Type: Medicare Outpatient Observation Notice Notice Delivered To: Patient Relationship to Patient: Self Internet Network Specialist Name: Delivery Method: HAND - Hand Delivered Anusha Days: Prior Verbal Notification: Recipient Understood Notice: Yes Recipient Signature: Yes Med Rec Note Co-signed by Attending: Coverage Notice Comment: Reviewer: [id number] - Brandin Garcia Notice Issued Date-Time: 04/19/2019 12:15 Notice Type: Patient Choice Letter Notice Delivered To: Patient Relationship to Patient: Internet Network Specialist Name: Delivery Method: HAND - Hand Delivered Anusha Days: Prior Verbal Notification: Recipient Understood Notice: Yes Recipient Signature: Yes Med Rec Note Co-signed by Attending: Coverage Notice Comment: [facility] Reviewer: [id number] Skylar Garcia Notice Issued Date-Time: 04/21/2019 11:45 Notice Type: IM Discharge Notice Notice Delivered To: Patient Relationship to Patient: Internet Network Specialist Name: Delivery Method: HAND - Hand Delivered Anusha Days: Prior Verbal Notification: Recipient Understood Notice: Yes Recipient Signature: Yes Med Rec Note Co-signed by Attending: Coverage Notice Comment: Reviewer: [id number] Skylar Garcia Notice Issued Date-Time: 04/22/2019 16:05 Notice Type: Patient Choice Letter Notice Delivered To: Patient Relationship to Patient: Internet Network Specialist Name: Delivery Method: HAND - Hand Delivered Anusha Days: Prior Verbal Notification: Recipient Understood Notice: Yes Recipient Signature: Yes Med Rec Note Co-signed by Attending: Coverage Notice Comment: [facility] OR [place] [facility]. Last DP export: 05/02/19 8:11 Patient Name: ABBY PHILLIPS Page 19552 at 1129 All edits/amendments must be made on the electronic document DICTATION DATE: 05/02/191127 ANTHROPOLOGY PROFESSOR: APRIL 05/02/19 112 RPT#: [id number] DC DATE: STATUS: ADM IN [facility] [address] [place] [address] END OF REPORT
--- NOTE | 2019-05-02 11:36 | MORECARE ---
CASE MANAGEMENT DISCHARGE SUMMARY PATIENT: ABBY PHILLIPS UNIT: [id number] ADM DATE: 04/19/19 AGE: 73 : [birth year] SEX: M ROOM/BED: D.3592 AUTHOR: BYRON,DOC PHYSICIAN: REFERRING PHYSICIAN: SAMUEL COOPER MD DATE OF SERVICE: 05/02/19 Discharge Plan Patient Name: ABBY PHILLIPS Facility: [facility]:[place] : 1945 Planned Disposition: [facility] Facility Anticipated Discharge Date: 05/02/19 Discharge Date: Expected LOS: 13 Initial Reviewer: [id number] Initial Review Date: 04/18/2019 Generated: 05/02/19 12:36 pm Comments DCP- Discharge Planning Updated by [id number]: Brandin Garcia on 05/02/19 10:[address] Patient Name: ABBY PHILLIPS Encounter No: [id number] : 1945 Primary Insurance: [facility] MEDICARE SOLUTIONS Anticipated DC Date: 05-02-2019 Planned Disposition: [facility] Facility External Planned Provider: [facility], MEDICARE REHAB BED DCP follow-up note: CM RECEIVED CALL FROM SYD OF [facility], , WAS ADVISED THEY ARE "PACKED" WITH NO BEDS AVAILABLE. CM RECEIVED CALL FROM BETINA OF [facility] [phone], WHO INFORMED CM THAT CLINICALLY, THEY WILL ACCEPT AND WILL ROZ FOR PRIOR AUTHORIZATION FROM PT'S INSURANCE FOR REHAB; BETINA WILL CALL CM SHORTLY REGARDING DIALYSIS UNIT PLACEMENT SCHEDULE NEEDS. BETINA WILL ALSO CALL PT'S SON. BETINA OF [facility], , CALLED, SHE HAS SPOKEN TO CHARLEY WHO DELINED PLACEMENT AT [facility] AND WANTS PLACEMENT AT [facility] OR [facility]. CM CALLED CHARLEY PHILLIPS AT [phone], LEFT MESSAGE ASKING FOR IMMEDIATE RETURN CALL. PT HAS BEEN DECLINED BY [facility] AND [facility]; PT HAS BEEN ACCEPTED CLINICALLY BY [facility] FOR REHAB PLACEMENT. PT'S FAMILY HAS CANCELLED PLACEMENT; CM WAITING ON RETURN CALL FROM CHARLEY PHILLIPS, PT'S SON. Brandin Garcia, CASE MANAGEMENT DCP- Discharge Planning Updated by [id number]: Brandin Garcia on 05/02/19 8:[address] Patient Name: ABBY PHILLIPS Encounter No: [id number] : 1945 Primary Insurance: [facility] MEDICARE SOLUTIONS Anticipated DC Date: 05-02-2019 Planned Disposition: [facility] Facility External Planned Provider: [facility], MEDICARE REHAB BED DCP follow-up note: CM FAXED UPDATE TO [facility] AT [phone]. CM CALLED [facility], , WAS ADVISED BY ISAIAH THAT ADMISSIONS STAFF WERE IN THEIR MORNING MEETING; CM LEFT MESSAGE ASKING FOR UPDATE ON REHAB REFERRAL WITH CM CONTACT INFORMATION. CM FAXED REFERRAL UDPATE FOR [facility] AT [phone]. BETINA OF [facility], , WILL SCREEN PT FOR REHAB ADMISSION, TODAY, , TO ASSESS PT FOR ADMISSION; [facility] IS IN NETWORK WITH PT'S INSURANCE.. PT HAS BEEN DECLINED BY [facility]; CM WAITING ADMISSION DETERMINATIONS FROM [facility] AND [facility] FOR REHAB PLACEMENT. IF ACCEPTED AT EITHER FACILITY, CM WILL REQUEST CHANGE OF OUTPATIENT DIALYSIS UNIT. Brandin Garcia, CASE MANAGEMENT DCP- Discharge Planning Updated by [id number]: Brandin Garcia on 04/29/19 2:[address] Patient Name: ABBY PHILLIPS Encounter No: [id number] : 1945 Primary Insurance: [facility] MEDICARE SOLUTIONS Anticipated DC Date: 05-02-2019 Planned Disposition: [facility] Facility External Planned Provider: [facility], MEDICARE REHAB BED DCP follow-up note: CM RECEIVED CALL FROM PRASHANTH OF [facility], THEY WILL NOT ACCEPT ANOTHER DIALYSIS PATIENT AT THIS TIME. CM CALLED [facility], , WAS ADVISED THAT ADMISSIONS STAFF WERE IN MEETING; CM LEFT MESSAGE ASKING FOR UPDATE ON REHAB REFERRAL WITH CM CONTACT INFORMATION. CM CALLED AND SPOKE TO BETINA OF [facility], ; BETINA INFORMED CM THAT SHE HAS SEVERAL HOMES IN THE [place] AREA AND WILL SCREEN PT FOR REHAB ADMISSION, SHE WILL PERSONALLY COME TO HOSPITAL ON THURSDAY, , TO ASSESS PT FOR ADMISSION; THE [facility] IS IN NETWORK WITH PT'S INSURANCE. CM FAXED REFERRAL FOR [facility] AT [phone]. CM UPDATED PT WHO REPORTS WANTING REHAB PLACEMENT IN [place] CLOSE TO HIS SON POSSIBLE. CM UPDATE DR. COOPER VIA PHONE. DR. COOPER ADVISED THAT PT IS READY TO DISCHARGE TO REHAB WHEN ACCEPTED. PT HAS BEEN DECLINED BY [facility]; CM WAITING ADMISSION DETERMINATIONS FROM [facility] AND [facility] FOR REHAB PLACEMENT. IF ACCEPTED AT EITHER FACILITY, CM WILL REQUEST CHANGE OF OUTPATIENT DIALYSIS UNIT. Brandin Garcia CASE MANAGEMENT DCP- Discharge Planning Updated by [id number]: Brandin Garcia on 04/29/19 6:[address] Patient Name: ABBY PHILLIPS Encounter No: [id number] : 1945 Primary Insurance: [facility] MEDICARE SOLUTIONS Anticipated DC Date: 04-21-2019 Planned Disposition: [facility] Facility External Planned Provider:[facility] OR [facility] [place], MEDICARE REHAB BED DCP follow-up note: CM REVIEWED CHART, PT DID PARTICIPATE WITH THERAPY ON 04-27-19 AND 04-28-19. PT HAS DEMONSTRATED ABILITY TO TRANSFER AND SIT IN CHAIR FOR THREE OR MORE HOURS. CM FAXED REFERRAL UPDATE TO [facility] AT [phone]. AND [facility] AT [phone]. CM WAITING ADMISSION DETERMINATIONS FROM [facility] AND [facility]. IF EITHER FACLITY WILL ACCEPT, CM WILL REQUEST CHANGE OF DIALYSIS UNIT. PT'S INSURANCE ALSO REQUIRES PRIOR AUTHORIZATION FOR REHAB PLACEMENT. Brandin Garcia CASE ROXANNA DCP- Discharge Planning Updated by [id number]: Brandin Garcia on 04/28/19 6:[address] Patient Name: ABBY PHILLIPS Encounter No: [id number] : 1945 Primary Insurance: [facility] MEDICARE SOLUTIONS Anticipated DC Date: 04-21-2019 Planned Disposition: [facility] Facility External Planned Provider: [facility] OR [facility] [place], MEDICARE REHAB BED DCP follow-up note: CM REVIEWED CHART, PT DID PARTICIPATE WITH THERAPY ON 04-27-19. PT DID SIT UP IN CHAIR FOR THREE OR MORE HOURS. CM FAXED REFERRAL UPDATE TO [facility] AT [phone]. AND [facility] AT [phone]. CM WAITING ADMISSION DETERMINATIONS FROM [facility] AND [facility]. IF EITHER FACLITY WILL ACCEPT, CM WILL REQUEST CHANGE OF DIALYSIS UNIT. PT'S INSURANCE ALSO REQUIRES PRIOR AUTHORIZATION FOR REHAB PLACEMENT. Brandin Garcia CASE MANAGEMENT DCP- Discharge Planning Updated by [id number]: Brandin Garcia on 04/27/19 11:[address] Patient Name: ABBY PHILLIPS Encounter No: [id number] : 1945 Primary Insurance: [facility] MEDICARE SOLUTIONS Anticipated DC Date: 04-21-2019 Planned Disposition: [facility] Facility External Planned Provider: [facility] [place], MEDICARE REHAB BED DCP follow-up note: CM REVIEWED CHART, PT DID NOT PARTICIPATE WITH THERAPY ON 04-26-19. CM MET WITH PT IN ROOM TO DISCUSS DISCHARGE PLANNING AND NEEDS. PT DOES NOT WANT [facility] OR HOSPICE. PT INSISTS THAT HE WANTS REHAB SERVICES. CM EXPLAINED THAT PT HAS TO PARTICIPATE FULLY WITH THERAPY EACH TIME OFFERED INSURANCE WILL NOT PAY FOR REHAB SERVICES WITHOUT PARTICIPATION WITH OFFERED THERAPY. PT REPORTS UNDERSTANDING. PT PROMISES TO PARTICIPATE WITH THERAPY SERVICES AND UNDERSTANDS THAT HE MUST SIT UP IN CHAIR FOR THREE OR MORE HOURS TO SHOW HE CAN GO TO OUTPATIENT DIALYSIS. CM RECEIVED CALL FROM MATILDA OF [facility] WHO WILL FOLLOW, BUT WILL ONLY CONSIDER IF PT IS PARTICIPATING WITH THERAPY. CM TO FAX REFERRAL UPDATE [facility] AT [phone]. AND [facility] AT [phone], ONCE NEW THERAPY NOTES ARE DOCUMENTED ON 04-27. CM WAITING ADMISSION DETERMINATIONS FROM [facility] AND [facility]. IF EITHER FACLITY WILL ACCEPT, CM WILL REQUEST CHANGE OF DIALYSIS UNIT. PT'S INSURANCE ALSO REQUIRES PRIOR AUTHORIZATION FOR REHAB PLACEMENT. SELENA Escobedo DCP- Discharge Planning Updated by [id number]: Brandin Garcia on 04/26/19 8:[address] Patient Name: ABBY PHILLIPS Encounter No: [id number] : 1945 Primary Insurance: [facility] MEDICARE SOLUTIONS Anticipated DC Date: 04-21-2019 Planned Disposition: [facility] Facility External Planned [facility] IN [place], MEDICARE REHAB BED DCP follow-up note: CM FAXED REFERRALUPDATE TO [facility] AT [phone]. CM FAXED REFERRAL UDPATE FOR [facility] [place] TO PRASHANTH AT [phone]. CM TO DISCUSS WITH REHAB TODAY THAT PT NEEDS TO HAVE DEMONSTRATED ABILITY TO SIT FOR THREE OR MORE HOURS IN CHAIR FOR OUTPATIENT DIALYSIS. CM WAITING ADMISSION DETERMINATIONS FROM [facility] AND [facility]. Brandin Garcia, CASE MANAGEMENT DCP- Discharge Planning Updated by [id number]: Brandin Garcia on 04/25/19 1:[address] Patient Name: ABBY PHILLIPS Encounter No: [id number] : 1945 Primary Insurance: [facility] MEDICARE SOLUTIONS Anticipated DC Date: 04-21-2019 Planned Disposition: [facility] Facility External Planned Provider: [facility] [place] [facility] [place], MEDICARE REHAB BED DCP follow-up note: CM RECEIVED CALL FROM CHARLEY PHILLIPS, PT'S SON, WHO ASKED WHAT IS TAKING SO LONG TO GET PT INTO REHAB IN [place]. CM EXPLAINED PLACEMENT PROCESS, INSURANCE APPROVAL TIME FRAME AND ALSO THE PROCESS OF HAVING TO GET ACCEPTING DIALYSIS UNIT IF CM CAN GET FACILITY TO ACCEPT PT. CHARLEY REPORTS UNDERSTANDING. CM CALLED [facility], , SPOKE TO SYD WHO INFORMED CM THAT SHE DID NOT GET THE REFERRAL. CM CONFIRMED FAX NUMBER, REVIEWED AND FOUND FAX CONFIRMATION FROM THURSDAY. CM FAXED REFERRAL AND UPDATE TO [facility] AT [phone]. CM SPOKE PRASHANTH OF [facility], , SHE WILL CALL [facility] AND GET UPDATE SHE HAS NOT "HEARD A WORD". CM FAXED REFERRAL UDPATE FOR [facility] [place] TO PRASHANTH AT [phone]. CM WAITING ADMISSION DETERMINATIONS FROM [facility] AND [facility]. Brandin Garcia, CASE MANAGEMENT DCP- Discharge Planning Updated by [id number]: Brandin Garcia on 04/22/19 10:[address] Patient Name: ABBY PHILLIPS Encounter No: [id number] : 1945 Primary Insurance: [facility] MEDICARE SOLUTIONS Anticipated DC Date: 04-21-2019 Planned Disposition: [facility] Facility External Planned Provider: [facility] IN [place], MEDICARE REHAB BED DCP follow-up note: CM SPOKE TO PT IN ROOM REGARDING DISCHARGE PLANNING. PT WILL GO TO REHAB IN [place] SO HE WILL BE CLOSE TO HIS SON. PT ASKED CM TO HURRY UP HE IS TIRED OF BEING IN THE HOSPITAL. CM EXPLAINED TO PT THAT IF HE WOULD HAVE DECIDED SOONER, CM WOULD HAVE ALREADY BEEN WORKING ON REHAB PLACEMENT. PT SIGNED CONSENT FOR [facility] SUGGESTED BY HIS SON AND FOR ANY HALFWAY REHAB IN [place]. CM EXPLAINED TO PT THAT HIS INSURANCE MAY TAKE SEVERAL DAYS TO APPROVE OR DECLINE REHAB SERVICES AND THAT CM WILL HAVE TO FIND A FACILITY THAT WILL TRANSPORT TO DIALYSIS AND IF ALL OF THAT IS DONE, CM WILL HAVE TO REQUEST A NEW DIALYSIS UNIT. PT REPORTS UNDERSTANDING. CM CALLED [facility], , SPOKE TO KAVIN WHO WILL SCREEN FOR ADMISSION. CM FA[facility]ED RE[facility]ERRAL TO [facility] AT [phone]. CM NOTIFIED PRASHANTH OF [facility], , OF REFERRAL. CM FAXED REFERRAL FOR [facility] TO PRASHANTH AT [phone]. CM WAITING ADMISSION DETERMINATIONS FROM [facility] AND [facility]. Brandin Garcia, CASE MANAGEMENT DCP- Discharge Planning Updated by [id number]: Brandin Garcia on 04/21/19 4:[address] Patient Name: ABBY PHILLIPS Encounter No: [id number] : 1945 Primary Insurance: [facility] MEDICARE SOLUTIONS Anticipated DC Date: 04-21-2019 Planned Disposition: [facility] Facility External Planned Provider: [facility] OR OTHER HALFWAY IN [place] DCP follow-up note: CM RECEIVED CALL FROM CHARLEY JACQUELINE, PT'S SON, WHO REPORTS THAT HE HAS TALKED TO PT VIA PHONE AND PT IS NOW AGREEING TO GO TO HALFWAY REHAB IN [place], CLOSE TO HIS SON. CM ATTEMPTED TO SEE PT WHO WAS OUT OF ROOM AT APPROXIMATELY 1345 HOURS. CM WILL SPEAK TO PT SOON POSSIBLE REGARDING HALFWAY REHAB IN [place] AND SEND REFERRALS IF PT WILL SIGN THE CONSENT. Brandin Garcia, CASE MANAGEMENT DCP- Discharge Planning Updated by [id number]: Brandin Garcia on 04/21/19 11:[address] Patient Name: ABBY PHILLIPS Encounter No: [id number] : 1945 Primary Insurance: [facility] MEDICARE SOLUTIONS Anticipated DC Date: 04-21-2019 Planned Disposition: Left Against Medical Advice DCP follow-up note: CM SPOKE TO BEDSIDE NURSE WHO REPORTS PT'S SISTER, JORGE, CALLED AND STATES SHE WILL NOT BE PICKING PT UP FOR TRANSPORT HOME. CM MET WITH PT IN ROOM TO DISCUSS DISCHARGE PLANNING AND NEEDS. PT REPORTS STILL PLANNING TO LEAVE WHEN HE FINDS A RIDE. CM EXPLAINED THAT PT'S FAMILY MEMBERS ARE CALLING AND INFORMING HOSPITAL STAFF THEY ARE NOT PICKING UP PT. PT STATES HE HAS FRIENDS THAT ARE GOING TO HELP. CM PROVIDED PT WITH MEDICARE WEBSITE RESULTS FOR HALFWAY REHABS WITHIN 50 MILES OF HIS HOME. CM EXPLAINED THAT [facility] WILL NOT ACCEPT PT BACK AND THAT IF PT CHANGES HIS MIND AND DECIDES TO GO TO REHAB, CM WILL NEED PT'S TOP TWO SELECTIONS AND SIGNATURE ON THE CHOICE FORM. IMPORTANT MESSAGE FROM MEDICARE PROVIDED AND EXPLAINED. PT ASKED CM TO CALL ADAM SANCHES, PHARMACIST AT [facility] TO HAVE HER , JOHN SANCHES, CALL PT. CM CALLED AND WAS ADVISED BY ADAM THAT AGUSTIN SPOKE TO PT YESTERDAY AND SHE WILL LET HER KNOW THAT PT WANTS TO TALK TO HIM AGAIN. CM STILL REFUSING HALFWAY FACLITY PLACEMENT. CM WAITING ON PT TO DEVELOP TRANSPORTATION HOME. IF TRANSPORTATION IS VERIFIED, CALL [facility], , WILL HAS AGREED TO ARRANGE PORTABLE OXGYEN TO HOSPITAL FOR PT TO LEAVE HOSPITAL. CM TO CONTINUE TO FOLLOW AND ASSIST NEEDED. Beef Cattle Farmer: Brandin Garcia DCP- Discharge Planning Updated by [id number]: Brandin Garcia on 04/21/19 8:[address] Patient Name: ABBY PHILLIPS Encounter No: [id number] : 1945 Primary Insurance: [facility] MEDICARE SOLUTIONS Anticipated DC Date: 04-21-2019 Planned Disposition: Left Against Medical Advice DCP follow-up note: CM SPOKE TO HERIBERTO SANCHES REGARDING PT'S DISCHARGE PLAN. TREATMENT TEAM CONCERNED THAT PT DOES NOT HAVE SAFE DISCHARGE PLAN. CM MET WITH HERIBERTO SANCHES WITH PT IN ROOM. PT INSISTS THAT HE WILL GO HOME, JOHN SANCHES, , WILL PICK HIM UP. PT REPORTS ALEXSANDRA LOPEZ, A FRIEND FROM [facility] WILL ASSIST WITH CARING FOR PT IN HOME AND ASSIST WITH GETTING TO AND FROM DIALYSIS. PT REPORTS HE NORMALLY DRIVES HIMSELF TO AND FROM DIALYSIS AND IS ABLE TO TRANSFER HIMSELF TO A WHEELCHAIR, GET TO HIS CAR, GET THE WHEELCHAIR INTO THE TRUCK OF THE CAR AND THEN WALK TO AND GET INTO THE DRIVERS SEAT HOLDING ON TO THE CAR. PT REPORTS HAVING ELECTRIC AND MANUAL WHEELCHAIR AND IS ABLE TO TRANSFER HIMSELF FROM BED TO CHAIR AND CHAIR TO BED. PT DOES NOT KNOW THE NUMBER TO HIS FRIEND ALEXSANDRA, TO VERIFY HE WILL ASSIST AFTER DISCHARGE. PT REPORTS HIS SISTER HANDY LIVES IN HIS HOUSE AND HAS FOR FOUR MONTHS. CM ADVISED THAT FAMILY INFORMED STAFF HERE THAT PT NEEDS NURSING REHAB. PT REPORTS THAT HIS FAMILY IS WANTING TO KEEP HIM AWAY AND IN THE SNF. HERIBERTO SANCHES ADVISED THAT PT MUST HAVE A SAFE AND VERIFIABLE PLAN TO DISCHARGE HOME. CM ATTEMPTED TO CALL JOHN SANCHES, ; THERE WAS NO ANSWER AND NO MESSAGE MACHINE. CM CALLED [facility], , SPOKE TO SCRAP IRON CUTTER RAYNE WHO INFORMED CM THAT THEY CAN DELIVER PORTABLE OXYGEN TO PT'S ROOM FOR DISCHARGE IF NEEDED. HARSHAL SPOKE TO PT IN ROOM, HERIBERTO SANCHES WAS IN ROOM SPEAKING TO PT. PT STATES HE IS LEAVING "AMA". HERIBERTO SANCHES INFORMED PT THAT PT MUST HAVE A PERSON TO VERIFY THEY ARE TRANSPORTING PRIOR TO ANY AMA FORMS BEING PRESENTED. CM ADVISED PT IF HE IS ABLE TO VERIFY TRANSPORATATION BY CM SPEAKING TO THAT PERSON AND THEY AGREE TO CREATIVE ART THERAPIST PT, CM WILL ASK JE[facility] TO DELIVER PORTABLE OXYGEN TO ROOM. CM ASKED THAT IF PT CHANGES HIS MIND AND DECIDES TO GO TO HALFWAY REHAB, TO PLEASE NOTIFY CM AND CM WILL BE GLAD TO ASSIST WITH PLACEMENT. PT DECLINED. CM WAITING ON PT TO DEVELOP TRANSPORTATION HOME. IF TRANSPORTATION IS VERIFIED, CALL [facility], , WILL HAS AGREED TO ARRANGE PORTABLE OXGYEN TO HOSPITAL FOR PT TO LEAVE HOSPITAL. CM TO CONTINUE TO FOLLOW AND ASSIST NEEDED. Beef Cattle Farmer: Brandin Garcia DCP- Discharge Planning Updated by [id number]: Brandin Garcia on 04/20/19 1:[address] Patient Name: ABBY PHILLIPS Encounter No: [id number] : 1945 Primary Insurance: [facility] MEDICARE SOLUTIONS Anticipated DC Date: 04-19-2019 Planned Disposition: Home DCP follow-up note: CM MET WITH PT IN ROOM AND ENCOURAGED PT TO GO TO REHAB PRIOR TO DISCHARGE HOME. PT CONTINUES TO REFUSE AND REPORTS HIS SISTER WILL PICK HIM UP FOR DISCHARGE HOME. PT STATES HE MAY NEED OXYGEN FROM [facility] AGAIN TO GO HOME. CM EXPLAINED THAT IF HIS SISTER IS PICKING HIM UP AND SHE IS STAYING WITH PT IN PT'S HOME, SHE SHOULD BRING OXYGEN WITH HER. PT WILL REQUEST HIS SISTER BRING OXYGEN WITH HER. CM RECEIVED CALL FROM MIRIAM GORDON, , WHO INFORMED CM THAT PT HAS BEEN CALLING STATING HE IS GOING TO BE DISCHARGED TODAY AND NEEDS A RIDE HOME. JORGE STATES PT NEEDS TO GO BACK TO NURSING FACILITY FOR REHAB AND NOT HOME. CM EXPLAINED THAT CM CANNOT MAKE PT DO SOMETHING AGAINST PT'S WILL AND THAT IF PT IS NOT DEEMED INCOMPETENT BY A PHYSICIAN OR COURT, PT CAN MAKE BAD DECISIONS FOR HIMSELF. CM EXPLAINED HOW TO FILE FOR GUARDIANSHIP OF A PERSON AND THAT THIS WOULD HAVE TO BE GRANTED FOR ANYONE TO MAKE PT DO SOMETHING AGAINST HIS WILL. JORGE REPORTS UNDERSTANDING. PT PLANS TO DISCHARGE HOME WITH HIS SISTER, PT REPORTS HIS SISTER WILL PICK HIM UP FOR DISCHARGE HOME. PT DECLINES SNF, HALFWAY OR REHAB PLACEMENT. PATIENT IS NOT APPROPRIATE FOR HOME HEALTH PER [facility]. Beef Cattle Farmer: Brandin Garcia DCP- Discharge Planning Updated by [id number]: Brandin Garcia on 04/19/19 3:[address] Patient Name: ABBY PHILLIPS Admission Status: ER Accout number: [id number] Admission Date: 04-19-2019 : 1945 Admission Diagnosis: Attending: SAMUEL COOPER Current LOS: 1 Anticipated DC Date: 04-19-2019 Planned Disposition: Home Primary Insurance: [facility] MEDICARE SOLUTIONS Discharge Planning Comments: CM MET WITH PT IN ROOM TO DISCUSS DISCHARGE PLANNING AND NEEDS. PT REPORTS LIVING AT HOME DEPENDENTLY WITH HIS SISTER HANDY WHO IS STAYING WITH PT IN PT'S HOME TO CARE FOR PT. . PT HAS [facility] LIFT AND WHEELCHAIR WELL HOME AND PORTABLE OXYGEN FROM [facility]. PT HAS NO OUTSIDE SERVICES ASSISTING IN THE HOME [facility] DECLINED TO ADMIT HIM AND TOLD HIM HE HAS TO BE DOING BETTER FOR HOME HEALTH SERVICES. CM DISCUSSED AVAILABILITY OF HOME HEALTH, REHAB SERVICES AND MEDICAL EQUIPMENT. PT DECLINED SNF OR REHAB PLACEMENT. PT DENIES DISCHARGE NEEDS, REPORTS HIS SISTER HANDY WILL PICK HIM UP FOR DISCHARGE HOME. PT REPORTS MISSING DIALYSIS BECAUSE HE WENT ON THURSDAY AND THEY DID NOT HAVE A SLING TO USE ON THE LIFT TO PICK HIM UP AT THE DIALYSIS UNIT. PT STATES HE HAS A SLING AT HOME AND FORGOT ABOUT IT. PT REPORTS HIS SISTER USES THE [employer] LIFT TO GET HIM TO THE WHEELCHAIR AND THEY WILL LEAVE THE SLING UNDER HIM FOR DIALYSIS TO USE FROM NOW ON. CHOICE SIGNED FOR [facility] TO VERIFY WITH THEM THAT THEY WILL NOT SEE PT. CM CALLED [facility], , LEFT MESSAGE ASKING FOR THE NURSE TO CALL CM BACK. PT PLANS TO DISCHARGE HOME WITH HIS SISTER, PT REPORTS HIS SISTER WILL PICK HIM UP FOR DISCHARGE HOME. PT DECLINES SNF, HALFWAY OR REHAB PLACEMENT. Beef Cattle Farmer: Brandin Garcia Appended by Brandin Garcia on 04/19/2019 16:56 CDT: CM RECEIVED CALL FROM JERICA OF [facility] WHO INFORMED CM THAT THEY DID GO FOR THE HOME HEALTH ADMIT AND INFORMED PT AND FAMILY THAT PT NEEDS REHAB AND IS NOT APPROPRIATE FOR HOME HEALTH SERVICES AT THIS TIME. PT PLANS TO DISCHARGE HOME WITH HIS SISTER, PT REPORTS HIS SISTER WILL PICK HIM UP FOR DISCHARGE HOME. PT DECLINES SNF, HALFWAY OR REHAB PLACEMENT. Beef Cattle Farmer: Brandin Garcia DCPIA - Discharge Planning Initial Assessment Updated by [id number]: Brandin Garcia on 04/22/19 11:13 am * Is the patient Alert and Oriented? Yes * How many steps to enter\\exit or inside your home? NONE * PCP DR. ARACELI SIDHU * [facility] * Preadmission Environment Home with Family * ADLs Partial Dependent * Partial ADLs (Assistance needed) Ambulation Bathing Dressing Medication Management Toileting Transfers * Equipment [facility] Lift Oxygen Wheelchair * Other Equipment HOME AND PORTABLE OXYGEN, [facility] * List name and contact numbers for known caregivers / representatives who currently or will assist patient after discharge: HANDY JONES, SISTER [phone] JORGE GORDON, SISTER, CHARLEY PHILLIPS, SON, * Verbal permission to speak to the caregivers and representatives has been obtained from the patient. Yes * Community resources currently utilized None * Please name any agencies selected above. PT HAD INTAKE WITH [employer] FROM [place], ACCORDING TO PT, THEY DECLINED T PROVIDE SERVICES UNTIL HE WAS "DOING BETTER" OUTPATIENT DIALYSIS , [facility], [facility], [facility]. PT REPORTS HE HAS BEEN DRIVING HIMSELF. * Additional services required to return to the preadmission environment? No * Can the patient safely return to the preadmission environment? Yes * Has this patient been hospitalized within the prior 30 days at any hospital? Yes Coverage Notice Reviewer: [id number] Skylar Augustin Notice Issued Date-Time: 04/19/2019 9:30 Notice Type: Medicare Outpatient Observation Notice Notice Delivered To: Patient Relationship to Patient: Self Carving Machine Operator Name: Delivery Method: HAND - Hand Delivered Anusha Days: Prior Verbal Notification: Recipient Understood Notice: Yes Recipient Signature: Yes Med Rec Note Co-signed by Attending: Coverage Notice Comment: Reviewer: [id number] Garcia Notice Issued Date-Time: 04/22/2019 16:05 Notice Type: Patient Choice Letter Notice Delivered To: Patient Relationship to Patient: Carving Machine Operator Name: Delivery Method: HAND - Hand Delivered Anusha Days: Prior Verbal Notification: Recipient Understood Notice: Yes Recipient Signature: Yes Med Rec Note Co-signed by Attending: Coverage Notice Comment: [facility]. Reviewer: [id number] Skylar Garcia Notice Issued Date-Time: 04/19/2019 12:15 Notice Type: Patient Choice Letter Notice Delivered To: Patient Relationship to Patient: Carving Machine Operator Name: Delivery Method: HAND - Hand Delivered Anusha Days: Prior Verbal Notification: Recipient Understood Notice: Yes Recipient Signature: Yes Med Rec Note Co-signed by Attending: Coverage Notice Comment: [facility] Reviewer: [id number] Garcia Notice Issued Date-Time: 04/21/2019 11:45 Notice Type: IM Discharge Notice Notice Delivered To: Patient Relationship to Patient: Carving Machine Operator Name: Delivery Method: HAND - Hand Delivered Anusha Days: Prior Verbal Notification: Recipient Understood Notice: Yes Recipient Signature: Yes Med Rec Note Co-signed by Attending: Coverage Notice Comment: Last DP export: 05/02/19 10:29 Patient Name: ABBY PHILLIPS Page [id number] at 1136 All edits/amendments must be made on the electronic document DICTATION DATE: 05/02/191135 DIRECTOR STYLE: APRIL 05/02/191135 RPT#: [id number] DC DATE: STATUS: ADM IN [facility] [address] [place] [address] END OF REPORT
--- NOTE | 2019-05-02 12:40 | MORECARE ---
CASE MANAGEMENT DISCHARGE SUMMARY PATIENT: ABBY PHILLIPS UNIT: [id number] ADM DATE: 04/19/19 AGE: 73 : [birth year] SEX: M ROOM/BED: D.5808 AUTHOR: BYRON,DOC PHYSICIAN: REFERRING PHYSICIAN: SAMUEL COOPER MD DATE OF SERVICE: 05/02/19 Discharge Plan Patient Name: ABBY PHILLIPS Facility: [facility]:[place] : 1945 Planned Disposition: Jail Facility Anticipated Discharge Date: 05/02/19 Discharge Date: Expected LOS: 13 Initial Reviewer: [id number] Initial Review Date: 04/18/2019 Generated: 05/02/19 1:39 pm Comments DCP- Discharge Planning Updated by [id number]: Brandin Garcia on 05/02/19 11:[address] Patient Name: ABBY PHILLIPS Encounter No: [id number] : 1945 Primary Insurance: [facility] Anticipated DC Date: 05-02-2019 Planned Disposition: Jail Facility External Planned Provider: : DCP follow-up note: CM SPOKE TO PT IN ROOM, DISCUSSED OPTIONS FOR REHAB, INFORMED OF DENIALS AND ACCEPTANCE BY [facility]. PT STATES HE WILL GO TO [facility] FOR REHAB AND WOULD LIKE TO GET HOME SOON POSSIBLE. PT STATES HE IS DOING WELL WITH THERAPY AND FEELS HE MAY COULD GO HOME TODAY. CM EXPLAINED HAVING SAFE DISCHARGE AND NOTED PT'S VERY LIMITED ABILITY PER THERAPY NOTES, ENCOURAGED PT TO TAKE ADVANTAGE OF REHAB SERVICES THAT INSURANCE COVERS AT THE [facility]. PT IN AGREEMENT. CM CALLED CHARLEY PHILLIPS, , ADVISED CHARLEY OF ABOVE INFORMATION. CHARLEY IN AGREEMENT WITH [facility] AND DOES NOT WANT TO HOLD PLACEMENT FOR REHAB UP ANY LONGER. CHARLEY DOES NOT FEEL THAT PT IS SAFE TO DISCHARGE HOME AT THIS POINT AND NEEDS THE REHAB. CM CALLED BETINA OF [facility], , ADVISED THAT PT AND FAMILY IN AGREEMENT WITH REHAB AT [facility]. BETINA ADVISED THAT THE FACILITY WOULD PREFER AN EARLY DIALYSIS TIME, DAY IS NOT IMPORTANT, THEY WILL NOT TRANSPORT AFTER 5PM. CM NOTIFIED MAKSIM CHILD OF [facility] WHO WILL SEEK OUTPATIENT DIALYSIS UNIT IN [place]. PT NOTIFIED, IMPORTANT MESSAGE FROM MEDICARE PROVIDED AND EXPLAINED. [facility] HAS ACCEPTED PT AND IS WORKIING ON INSURANCE PRE AUTHORIZATION FOR REHAB SERVICES. MAKSIM OF [facility] IS WORKING ON OUTPATIENT DIALYSIS UNIT AND SCHEDULE THAT WILL ACCOMODATE REHAB TRANSPORTATION [facility]. Brandin Garcia, CASE MANAGEMENT DCP- Discharge Planning Updated by [id number]: Brandin Garcia on 05/02/19 10:[address] Patient Name: ABBY PHILLIPS Encounter No: [id number] : 1945 Primary Insurance: [facility] Anticipated DC Date: 05-02-2019 Planned Disposition: Jail Facility External Planned Provider: [facility], MEDICARE REHAB BED DCP follow-up note: CM RECEIVED CALL FROM SDY OF [facility], , WAS ADVISED THEY ARE "PACKED" WITH NO BEDS AVAILABLE. CM RECEIVED CALL FROM BETINA OF [facility] [phone], WHO INFORMED CM THAT CLINICALLY, THEY WILL ACCEPT AND WILL ROZ FOR PRIOR AUTHORIZATION FROM PT'S INSURANCE FOR REHAB; BETINA WILL CALL CM SHORTLY REGARDING DIALYSIS UNIT PLACEMENT SCHEDULE NEEDS. BETINA WILL ALSO CALL PT'S SON. BETINA OF [facility], , CALLED, SHE HAS SPOKEN TO CHARLEY WHO DELINED PLACEMENT AT THE [facility] AND WANTS PLACEMENT AT [facility] OR THE [facility]. CM CALLED CHARLEY PHILLIPS AT [phone], LEFT MESSAGE ASKING FOR IMMEDIATE RETURN CALL. PT HAS BEEN DECLINED BY THE [facility] AND [facility]; PT HAS BEEN ACCEPTED CLINICALLY BY [facility] FOR REHAB PLACEMENT. PT'S FAMILY HAS CANCELLED PLACEMENT; CM WAITING ON RETURN CALL FROM CHARLEY PHILLIPS, PT'S SON. Brandin Garcia, CASE MANAGEMENT DCP- Discharge Planning Updated by [id number]: Brandin Garcia on 05/02/19 8:[address] Patient Name: ABBY PHILLIPS Encounter No: [id number] : 1945 Primary Insurance: [facility] Anticipated DC Date: 05-02-2019 Planned Disposition: Jail Facility External Planned Provider: [facility], MEDICARE REHAB BED DCP follow-up note: CM FAXED UPDATE TO [facility] AT [phone]. CM CALLED [facility], , WAS ADVISED BY ISAIAH THAT ADMISSIONS STAFF WERE IN THEIR MORNING MEETING; CM LEFT MESSAGE ASKING FOR UPDATE ON REHAB REFERRAL WITH CM CONTACT INFORMATION. CM FAXED REFERRAL UDPATE FOR [facility] AT [phone]. BETINA OF [facility], , WILL SCREEN PT FOR REHAB ADMISSION, TODAY, , TO ASSESS PT FOR ADMISSION; THE [facility] IS IN NETWORK WITH PT'S INSURANCE.. PT HAS BEEN [facility] [facility]; CM WAITING ADMISSION DETERMINATIONS FROM [facility] AND [facility] FOR REHAB PLACEMENT. IF ACCEPTED AT EITHER FACILITY, CM WILL REQUEST CHANGE OF OUTPATIENT DIALYSIS UNIT. Brandin Garcia, CASE MANAGEMENT DCP- Discharge Planning Updated by [id number]: Brandin Garcia on 04/29/19 2:[address] Patient Name: ABBY PHILLIPS Encounter No: [id number] : 1945 Primary Insurance: [facility] Anticipated DC Date: 05-02-2019 Planned Disposition: Jail Facility External Planned Provider: [facility], MEDICARE REHAB BED DCP follow-up note: CM RECEIVED CALL FROM PRASHANTH OF [facility], THEY WILL NOT ACCEPT ANOTHER DIALYSIS PATIENT AT THIS TIME. CM CALLED [facility], , WAS ADVISED THAT ADMISSIONS STAFF WERE IN MEETING; CM LEFT MESSAGE ASKING FOR UPDATE ON REHAB REFERRAL WITH CM CONTACT INFORMATION. CM CALLED AND SPOKE TO BETINA OF [facility], ; BETINA INFORMED CM THAT SHE HAS SEVERAL HOMES IN THE [place] AREA AND WILL SCREEN PT FOR REHAB ADMISSION, SHE WILL PERSONALLY COME TO HOSPITAL ON THURSDAY, , TO ASSESS PT FOR ADMISSION; THE [facility] IS IN NETWORK WITH PT'S INSURANCE. CM FAXED REFERRAL FOR [facility] AT [phone]. CM UPDATED PT WHO REPORTS WANTING REHAB PLACEMENT IN [place] CLOSE TO HIS SON POSSIBLE. CM UPDATE DR. COOPER VIA PHONE. DR. COOPER ADVISED THAT PT IS READY TO DISCHARGE TO REHAB WHEN ACCEPTED. PT HAS BEEN [facility]CL[place] [facility]; CM WAITING ADMISSION DETERMINATIONS FROM [facility] AND [facility] FOR REHAB PLACEMENT. IF ACCEPTED AT EITHER FACILITY, CM WILL REQUEST CHANGE OF OUTPATIENT DIALYSIS UNIT. Brandin Garcia CASE MANAGEMENT DCP- Discharge Planning Updated by [id number]: Brandin Garcia on 04/29/19 6:[address] Patient Name: ABBY PHILLIPS Encounter No: [id number] : 1945 Primary Insurance: [facility] Anticipated DC Date: 04-21-2019 Planned Disposition: Jail Facility External Planned Provider:[facility] OR THE [facility] IN [place], MEDICARE REHAB BED DCP follow-up note: CM REVIEWED CHART, PT DID PARTICIPATE WITH THERAPY ON 04-27-19 AND 04-28-19. PT HAS DEMONSTRATED ABILITY TO TRANSFER AND SIT IN CHAIR FOR THREE OR MORE HOURS. CM FAXED REFERRAL UPDATE TO [facility] AT [phone]. AND THE [facility] AT [phone]. CM WAITING ADMISSION DETERMINATIONS FROM [facility] AND [facility]. IF EITHER FACLITY WILL ACCEPT, CM WILL REQUEST CHANGE OF DIALYSIS UNIT. PT'S INSURANCE ALSO REQUIRES PRIOR AUTHORIZATION FOR REHAB PLACEMENT. Brandin Garcia, CASE MANAGEMENT DCP- Discharge Planning Updated by [id number]: Brandin Garcia on 04/28/19 6:[address] Patient Name: ABBY PHILLIPS Encounter No: [id number] : 1945 Primary Insurance: [facility] Anticipated DC Date: 04-21-2019 Planned Disposition: Jail Facility External Planned Provider: [facility] OR THE [facility] IN [place], MEDICARE REHAB BED DCP follow-up note: CM REVIEWED CHART, PT DID PARTICIPATE WITH THERAPY ON 04-27-19. PT DID SIT UP IN CHAIR FOR THREE OR MORE HOURS. CM FAXED REFERRAL UPDATE TO [facility] AT [phone]. AND [facility] [place] [phone]. CM WAITING ADMISSION DETERMINATIONS FROM [facility] AND [facility]. IF EITHER FACLITY WILL ACCEPT, CM WILL REQUEST CHANGE OF DIALYSIS UNIT. PT'S INSURANCE ALSO REQUIRES PRIOR AUTHORIZATION FOR REHAB PLACEMENT. SELENA Escobedo MANAGEMENT DCP- Discharge Planning Updated by [id number]: Brandin Garcai on 04/27/19 11:[address] Patient Name: ABBY PHILLIPS Encounter No: [id number] : 1945 Primary Insurance: [facility] Anticipated DC Date: 04-21-2019 Planned Disposition: Jail Facility External Planned Provider: [facility] OR [facility] [place], MEDICARE REHAB BED DCP follow-up note: CM REVIEWED CHART, PT DID NOT PARTICIPATE WITH THERAPY ON 04-26-19. CM MET WITH PT IN ROOM TO DISCUSS DISCHARGE PLANNING AND NEEDS. PT DOES NOT WANT [facility] CARE OR HOSPICE. PT INSISTS THAT HE WANTS REHAB SERVICES. CM EXPLAINED THAT PT HAS TO PARTICIPATE FULLY WITH THERAPY EACH TIME OFFERED INSURANCE WILL NOT PAY FOR REHAB SERVICES WITHOUT PARTICIPATION WITH OFFERED THERAPY. PT REPORTS UNDERSTANDING. PT PROMISES TO PARTICIPATE WITH THERAPY SERVICES AND UNDERSTANDS THAT HE MUST SIT UP IN CHAIR FOR THREE OR MORE HOURS TO SHOW HE CAN GO TO OUTPATIENT DIALYSIS. CM RECEIVED CALL FROM MATILDA OF THE [facility] WHO WILL FOLLOW, BUT WILL ONLY CONSIDER IF PT IS PARTICIPATING WITH THERAPY. CM TO FAX REFERRAL UPDATE ST[facility] AT [phone]. AND [facility] [place] [phone], ONCE NEW THERAPY NOTES ARE DOCUMENTED ON 04-27. CM WAITING ADMISSION DETERMINATIONS FROM [facility] AND [facility]. IF EITHER FACLITY WILL ACCEPT, CM WILL REQUEST CHANGE OF DIALYSIS UNIT. PT'S INSURANCE ALSO REQUIRES PRIOR AUTHORIZATION FOR REHAB PLACEMENT. SELENA Escobedo MANAGEMENT DCP- Discharge Planning Updated by [id number]: Brandin Garcia on 04/26/19 8:[address] Patient Name: ABBY PHILLIPS Encounter No: [id number] : 1945 Primary Insurance: [facility] Anticipated DC Date: 04-21-2019 Planned Disposition: Jail Facility External Planned Provider:[facility] OR [facility] [place], MEDICARE REHAB BED DCP follow-up note: CM FAXED REFERRALUPDATE TO [facility] AT [phone]. CM FAXED REFERRAL UDPATE FOR THE [facility] TO PRASHANTH AT [phone]. CM TO DISCUSS WITH REHAB TODAY THAT PT NEEDS TO HAVE DEMONSTRATED ABILITY TO SIT FOR THREE OR MORE HOURS IN CHAIR FOR OUTPATIENT DIALYSIS. CM WAITING ADMISSION DETERMINATIONS FROM [facility] AND THE [facility]. Brandin Garcia CASE MANAGEMENT DCP- Discharge Planning Updated by [id number]: Brandin Garcia on 04/25/19 1:[address] Patient Name: ABBY PHILLIPS Encounter No: [id number] : 1945 Primary Insurance: [facility] Anticipated DC Date: 04-21-2019 Planned Disposition: Jail Facility External Planned Provider: [facility] OR [facility] IN [place], MEDICARE REHAB BED DCP follow-up note: CM RECEIVED CALL FROM CHARLEY PHILLIPS, PT'S SON, WHO ASKED WHAT IS TAKING SO LONG TO GET PT INTO REHAB IN [place]. CM EXPLAINED PLACEMENT PROCESS, INSURANCE APPROVAL TIME FRAME AND ALSO THE PROCESS OF HAVING TO GET ACCEPTING DIALYSIS UNIT IF CM CAN GET FACILITY TO ACCEPT PT. CHARLEY REPORTS UNDERSTANDING. CM CALLED [facility], , SPOKE TO SYD WHO INFORMED CM THAT SHE DID NOT GET THE REFERRAL. CM CONFIRMED FAX NUMBER, REVIEWED AND FOUND FAX CONFIRMATION FROM THURSDAY. CM FAXED REFERRAL AND UPDATE TO [facility] AT [phone]. CM SPOKE PRASHANTH OF [facility], , SHE WILL CALL THE [facility] AND GET UPDATE SHE HAS NOT "HEARD A WORD". CM FAXED REFERRAL UDPATE FOR THE [facility] TO PRASHANTH AT [phone]. CM WAITING ADMISSION DETERMINATIONS FROM [facility] AND [facility]. Brandin Garcia, CASE MANAGEMENT DCP- Discharge Planning Updated by [id number]: Brandin Garcia on 04/22/19 10:[address] Patient Name: ABBY PHILLIPS Encounter No: [id number] : 1945 Primary Insurance: [facility] Anticipated DC Date: 04-21-2019 Planned Disposition: Jail Facility External Planned Provider: [facility] OR [facility] IN [place], MEDICARE REHAB BED DCP follow-up note: CM SPOKE TO PT IN ROOM REGARDING DISCHARGE PLANNING. PT WILL GO TO REHAB IN [place] SO HE WILL BE CLOSE TO HIS SON. PT ASKED CM TO HURRY UP HE IS TIRED OF BEING IN THE HOSPITAL. CM EXPLAINED TO PT THAT IF HE WOULD HAVE DECIDED SOONER, CM WOULD HAVE ALREADY BEEN WORKING ON REHAB PLACEMENT. PT SIGNED CONSENT FOR [facility] SUGGESTED BY HIS SON AND FOR ANY [facility] REHAB IN [place]. CM EXPLAINED TO PT THAT HIS INSURANCE MAY TAKE SEVERAL DAYS TO APPROVE OR DECLINE REHAB SERVICES AND THAT CM WILL HAVE TO FIND A FACILITY THAT WILL TRANSPORT TO DIALYSIS AND IF ALL OF THAT IS DONE, CM WILL HAVE TO REQUEST A NEW DIALYSIS UNIT. PT REPORTS UNDERSTANDING. CM CALLED [facility], , SPOKE TO KAVIN WHO WILL SCREEN FOR ADMISSION. CM FAXED REFERRAL TO [facility] AT [phone]. CM NOTIFIED PRASHANTH OF [facility], , OF REFERRAL. CM FAXED REFERRAL FOR [facility] [place] PRASHANTH AT [phone]. CM WAITING ADMISSION DETERMINATIONS FROM [facility] AND [facility]. Brandin Garcia, CASE MANAGEMENT DCP- Discharge Planning Updated by [id number]: Brandin Garcia on 04/21/19 4:[address] Patient Name: ABBY PHILLIPS Encounter No: [id number] : 1945 Primary Insurance: [facility] Anticipated DC Date: 04-21-2019 Planned Disposition: Jail Facility External Planned Provider: [facility] OR OTHER [facility] IN [place] DCP follow-up note: CM RECEIVED CALL FROM CHARLEY JACQUELINE, PT'S SON, WHO REPORTS THAT HE HAS TALKED TO PT VIA PHONE AND PT IS NOW AGREEING TO GO TO [facility] RE[facility]AB IN [place], CLOSE TO HIS SON. CM ATTEMPTED TO SEE PT WHO WAS OUT OF ROOM AT APPROXIMATELY 1345 HOURS. CM WILL SPEAK TO PT SOON POSSIBLE REGARDING [facility] RE[facility]AB IN [place] AND SEND REFERRALS IF PT WILL SIGN THE CONSENT. Brandin Garcia CASE MANAGEMENT DCP- Discharge Planning Updated by [id number]: Brandin Garcia on 04/21/19 11:[address] Patient Name: ABBY PHILLIPS Encounter No: [id number] : 1945 Primary Insurance: [facility] Anticipated DC Date: 04-21-2019 Planned Disposition: Left Against Medical Advice DCP follow-up note: CM SPOKE TO BEDSIDE NURSE WHO REPORTS PT'S SISTER, JORGE, CALLED AND STATES SHE WILL NOT BE PICKING PT UP FOR TRANSPORT HOME. CM MET WITH PT IN ROOM TO DISCUSS DISCHARGE PLANNING AND NEEDS. PT REPORTS STILL PLANNING TO LEAVE WHEN HE FINDS A RIDE. CM EXPLAINED THAT PT'S FAMILY MEMBERS ARE CALLING AND INFORMING HOSPITAL STAFF THEY ARE NOT PICKING UP PT. PT STATES HE HAS FRIENDS THAT ARE GOING TO HELP. CM PROVIDED PT WITH MEDICARE WEBSITE RESULTS FOR [facility] RE[facility]ABS WITHIN 50 MILES OF HIS HOME. CM EXPLAINED THAT [facility] WILL NOT ACCEPT PT BACK AND THAT IF PT CHANGES HIS MIND AND DECIDES TO GO TO REHAB, CM WILL NEED PT'S TOP TWO SELECTIONS AND SIGNATURE ON THE CHOICE FORM. IMPORTANT MESSAGE FROM MEDICARE PROVIDED AND EXPLAINED. PT ASKED CM TO CALL ADAM SANCHES, PHARMACIST AT [facility] TO HAVE HER , JOHN SANCHES, CALL PT. CM CALLED AND WAS ADVISED BY ADAM THAT AGUSTIN SPOKE TO PT YESTERDAY AND SHE WILL LET HER KNOW THAT PT WANTS TO TALK TO HIM AGAIN. CM STILL REFUSING [facility] FACLITY PLACEMENT. CM WAITING ON PT TO DEVELOP TRANSPORTATION HOME. IF TRANSPORTATION IS VERIFIED, CALL [facility], , WILL HAS AGREED TO ARRANGE PORTABLE OXGYEN TO HOSPITAL FOR PT TO LEAVE HOSPITAL. CM TO CONTINUE TO FOLLOW AND ASSIST NEEDED. Investigator Fraud: Brandin Garcia DCP- Discharge Planning Updated by [id number]: Brandin Garcia on 04/21/19 8:[address] Patient Name: ABBY PHILLIPS Encounter No: [id number] : 1945 Primary Insurance: [facility] Anticipated DC Date: 04-21-2019 Planned Disposition: Left Against Medical Advice DCP follow-up note: CM SPOKE TO HERIBERTO SANCHES REGARDING PT'S DISCHARGE PLAN. TREATMENT TEAM CONCERNED THAT PT DOES NOT HAVE SAFE DISCHARGE PLAN. CM MET WITH HERIBERTO SANCHES WITH PT IN ROOM. PT INSISTS THAT HE WILL GO HOME, JOHN SANCHES, , WILL PICK HIM UP. PT REPORTS ALEXSANDRA LOPEZ, A FRIEND FROM [facility] WILL ASSIST WITH CARING FOR PT IN HOME AND ASSIST WITH GETTING TO AND FROM DIALYSIS. PT REPORTS HE NORMALLY DRIVES HIMSELF TO AND FROM DIALYSIS AND IS ABLE TO TRANSFER HIMSELF TO A WHEELCHAIR, GET TO HIS CAR, GET THE WHEELCHAIR INTO THE TRUCK OF THE CAR AND THEN WALK TO AND GET INTO THE DRIVERS SEAT HOLDING ON TO THE CAR. PT REPORTS HAVING ELECTRIC AND MANUAL WHEELCHAIR AND IS ABLE TO TRANSFER HIMSELF FROM BED TO CHAIR AND CHAIR TO BED. PT DOES NOT KNOW THE NUMBER TO HIS FRIEND ALEXSANDRA, TO VERIFY HE WILL ASSIST AFTER DISCHARGE. PT REPORTS HIS SISTER HANDY LIVES IN HIS HOUSE AND HAS FOR FOUR MONTHS. CM ADVISED THAT FAMILY INFORMED STAFF HERE THAT PT NEEDS NURSING REHAB. PT REPORTS THAT HIS FAMILY IS WANTING TO KEEP HIM AWAY AND IN THE SHELTER. HERIBERTO SANCHES ADVISED THAT PT MUST HAVE A SAFE AND VERIFIABLE PLAN TO DISCHARGE HOME. CM ATTEMPTED TO CALL JOHN SANCHES, ; THERE WAS NO ANSWER AND NO MESSAGE MACHINE. CM CALLED [facility], , SPOKE TO [facility]AMMER HEATER RAYNE WHO INFORMED CM THAT THEY CAN DELIVER PORTABLE OXYGEN TO PT'S ROOM FOR DISCHARGE IF NEEDED. HARSHAL SPOKE TO PT IN ROOM, HERIBERTO SANCHES WAS IN ROOM SPEAKING TO PT. PT STATES HE IS LEAVING "AMA". HERIBERTO SANCHES INFORMED PT THAT PT MUST HAVE A PERSON TO VERIFY THEY ARE TRANSPORTING PRIOR TO ANY AMA FORMS BEING PRESENTED. CM ADVISED PT IF HE IS ABLE TO VERIFY TRANSPORATATION BY CM SPEAKING TO THAT PERSON AND THEY AGREE TO FINISHER ACCORDION PT, CM WILL ASK JEANNIE TO DELIVER PORTABLE OXYGEN TO ROOM. CM ASKED THAT IF PT CHANGES HIS MIND AND DECIDES TO GO TO [facility], TO PLEASE NOTIFY CM AND CM WILL BE GLAD TO ASSIST WITH PLACEMENT. PT DECLINED. CM WAITING ON PT TO DEVELOP TRANSPORTATION HOME. IF TRANSPORTATION IS VERIFIED, CALL JEANNIE, , WILL HAS AGREED TO ARRANGE PORTABLE OXGYEN TO HOSPITAL FOR PT TO LEAVE HOSPITAL. CM TO CONTINUE TO FOLLOW AND ASSIST NEEDED. Investigator Fraud: Brandin Garcia DCP- Discharge Planning Updated by [id number]: Brandin Garcia on 04/20/19 1:[address] Patient Name: ABBY PHILLIPS Encounter No: [id number] : 1945 Primary Insurance: [facility] Anticipated DC Date: 04-19-2019 Planned Disposition: Home DCP follow-up note: CM MET WITH PT IN ROOM AND ENCOURAGED PT TO GO TO REHAB PRIOR TO DISCHARGE HOME. PT CONTINUES TO REFUSE AND REPORTS HIS SISTER WILL PICK HIM UP FOR DISCHARGE HOME. PT STATES HE MAY NEED OXYGEN FROM [facility] AGAIN TO GO HOME. CM EXPLAINED THAT IF HIS SISTER IS PICKING HIM UP AND SHE IS STAYING WITH PT IN PT'S HOME, SHE SHOULD BRING OXYGEN WITH HER. PT WILL REQUEST HIS SISTER BRING OXYGEN WITH HER. CM RECEIVED CALL FROM MIRIAM GORDON, , WHO INFORMED CM THAT PT HAS BEEN CALLING STATING HE IS GOING TO BE DISCHARGED TODAY AND NEEDS A RIDE HOME. JORGE STATES PT NEEDS TO GO BACK TO NURSING FACILITY FOR REHAB AND NOT HOME. CM EXPLAINED THAT CM CANNOT MAKE PT DO SOMETHING AGAINST PT'S WILL AND THAT IF PT IS NOT DEEMED INCOMPETENT BY A PHYSICIAN OR COURT, PT CAN MAKE BAD DECISIONS FOR HIMSELF. CM EXPLAINED HOW TO FILE FOR GUARDIANSHIP OF A PERSON AND THAT THIS WOULD HAVE TO BE GRANTED FOR ANYONE TO MAKE PT DO SOMETHING AGAINST HIS WILL. JORGE REPORTS UNDERSTANDING. PT PLANS TO DISCHARGE HOME WITH HIS SISTER, PT REPORTS HIS SISTER WILL PICK HIM UP FOR DISCHARGE HOME. PT DECLINES [facility], [facility] OR REHAB PLACEMENT. PATIENT IS NOT APPROPRIATE FOR HOME HEALTH PER [facility]. Investigator Fraud: Brandin Garcia DCP- Discharge Planning Updated by [id number]: Brandin Garcia on 04/19/19 3:[address] Patient Name: ABBY PHILLIPS Admission Status: ER Accout number: [id number] Admission Date: 04-19-2019 : 1945 Admission Diagnosis: Attending: SAMUEL COOPER Current LOS: 1 Anticipated DC Date: 04-19-2019 Planned Disposition: Home Primary Insurance: [facility] Discharge Planning Comments: CM MET WITH PT IN ROOM TO DISCUSS DISCHARGE PLANNING AND NEEDS. PT REPORTS LIVING AT HOME DEPENDENTLY WITH HIS SISTER HANDY WHO IS STAYING WITH PT IN PT'S HOME TO CARE FOR PT. . PT HAS [facility] WHEELCHAIR WELL HOME AND PORTABLE OXYGEN FROM [facility]. PT HAS NO OUTSIDE SERVICES ASSISTING IN THE HOME [facility] DECLINED TO ADMIT HIM AND TOLD HIM HE HAS TO BE DOING BETTER FOR HOME HEALTH SERVICES. CM DISCUSSED AVAILABILITY OF HOME HEALTH, REHAB SERVICES AND MEDICAL EQUIPMENT. PT DECLINED [facility] OR REHAB PLACEMENT. PT DENIES DISCHARGE NEEDS, REPORTS HIS SISTER HANDY WILL PICK HIM UP FOR DISCHARGE HOME. PT REPORTS MISSING DIALYSIS BECAUSE HE WENT ON THURSDAY AND THEY DID NOT HAVE A SLING TO USE ON THE LIFT TO PICK HIM UP AT THE DIALYSIS UNIT. PT STATES HE HAS A SLING AT HOME AND FORGOT ABOUT IT. PT REPORTS HIS SISTER USES THE [employer] LIFT TO GET HIM TO THE WHEELCHAIR AND THEY WILL LEAVE THE SLING UNDER HIM FOR DIALYSIS TO USE FROM NOW ON. CHOICE SIGNED FOR [facility] TO VERIFY WITH THEM THAT THEY WILL NOT SEE PT. CM CALLED [facility], , LEFT MESSAGE ASKING FOR THE NURSE TO CALL CM BACK. PT PLANS TO DISCHARGE HOME WITH HIS SISTER, PT REPORTS HIS SISTER WILL PICK HIM UP FOR DISCHARGE HOME. PT DECLINES [facility], [facility] OR REHAB PLACEMENT. Investigator Fraud: Brandin Garcia Appended by Brandin Garcia on 04/19/2019 16:56 CDT: CM RECEIVED CALL FROM JERICA OF [facility] WHO INFORMED CM THAT THEY DID GO FOR THE HOME HEALTH ADMIT AND INFORMED PT AND FAMILY THAT PT NEEDS REHAB AND IS NOT APPROPRIATE FOR HOME HEALTH SERVICES AT THIS TIME. PT PLANS TO DISCHARGE HOME WITH HIS SISTER, PT REPORTS HIS SISTER WILL PICK HIM UP FOR DISCHARGE HOME. PT DECLINES SHELTER, [facility] OR REHAB PLACEMENT. Investigator Fraud: Brandin Garcia DCPIA - Discharge Planning Initial Assessment Updated by [id number]: Brandin Garcia on 04/22/19 11:13 am * Is the patient Alert and Oriented? Yes * How many steps to enter\\exit or inside your home? NONE * PCP DR. ARACELI SIDHU * [facility] * Preadmission Environment Home with Family * ADLs Partial Dependent * Partial ADLs (Assistance needed) Ambulation Bathing Dressing Medication Management Toileting Transfers * Equipment [employer] Lift Oxygen Wheelchair * Other Equipment HOME AND PORTABLE OXYGEN, [facility] * List name and contact numbers for known caregivers / representatives who currently or will assist patient after discharge: HANDY JONES, SISTER [phone] JORGE GORDON, SISTER, CHARLEY PHILLIPS, SON, * Verbal permission to speak to the caregivers and representatives has been obtained from the patient. Yes * Community resources currently utilized None * Please name any agencies selected above. PT HAD INTAKE WITH [facility] FROM [place], ACCORDING TO PT, THEY DECLINED T PROVIDE SERVICES UNTIL HE WAS "DOING BETTER" OUTPATIENT DIALYSIS , [facility], 1000AM, [facility]. PT REPORTS HE HAS BEEN DRIVING HIMSELF. * Additional services required to return to the preadmission environment? No * Can the patient safely return to the preadmission environment? Yes * Has this patient been hospitalized within the prior 30 days at any hospital? Yes Coverage Notice Reviewer: [id number] Skylar Augustin Notice Issued Date-Time: 04/19/2019 9:30 Notice Type: Medicare Outpatient Observation Notice Notice Delivered To: Patient Relationship to Patient: Self Visual Effects Editor Name: Delivery Method: HAND - Hand Delivered Anusha Days: Prior Verbal Notification: Recipient Understood Notice: Yes Recipient Signature: Yes Med Rec Note Co-signed by Attending: Coverage Notice Comment: Reviewer: LIO Garcia Notice Issued Date-Time: 04/19/2019 12:15 Notice Type: Patient Choice Letter Notice Delivered To: Patient Relationship to Patient: Visual Effects Editor Name: Delivery Method: HAND - Hand Delivered Anusha Days: Prior Verbal Notification: Recipient Understood Notice: Yes Recipient Signature: Yes Med Rec Note Co-signed by Attending: Coverage Notice Comment: [facility] Reviewer: [id number] Garcia Notice Issued Date-Time: 04/21/2019 11:45 Notice Type: IM Discharge Notice Notice Delivered To: Patient Relationship to Patient: Visual Effects Editor Name: Delivery Method: HAND - Hand Delivered Anusha Days: Prior Verbal Notification: Recipient Understood Notice: Yes Recipient Signature: Yes Med Rec Note Co-signed by Attending: Coverage Notice Comment: Reviewer: [id number] Garcia Notice Issued Date-Time: 04/22/2019 16:05 Notice Type: Patient Choice Letter Notice Delivered To: Patient Relationship to Patient: Visual Effects Editor Name: Delivery Method: HAND - Hand Delivered Anusha Days: Prior Verbal Notification: Recipient Understood Notice: Yes Recipient Signature: Yes Med Rec Note Co-signed by Attending: Coverage Notice Comment: [facility]. Last DP export: 05/02/19 10:36 Patient Name: ABBY PHILLIPS Page [phone] at 1240 All edits/amendments must be made on the electronic document DICTATION DATE: 05/02/19 1239 SANITIZER: DM 05/02/19 1239 RPT#: [id number] DC DATE: STATUS: ADM IN [facility] [address] [place] [address] END OF REPORT
[2019-05-02 15:06] VITALS: BP 149/71
--- NOTE | 2019-05-02 17:34 | NUR ---
PT HAS BEEN ALERT AND ORIENTED ALL DAY. UP TO CHAIR TWICE WITH PHYSCIAL THERAPY, MIN ASSIST. PT HAS AGREED (WITH SONS AGREEMENT) TO GO TO LONGTERM (SEE CM NOTES). WHILE GETTING THINGS ARRAGNED, REALIZED PT WAS ON 10L SATTING 94% AND WOULD NOT BE A GOOD CANDIDATE FOR LONGTERM AT THIS TIME. ORDERED ABGS AND OTHER TESTS PER MD ORDER. RESPIRATORY BUMPED THE PT DOWN TO 7L, CURRENTLY TOLERATING WELL. DOCTORS [address] [address] TO REEVALUATE DISCHARGE TOMORROW. PT IS DISGRUNTLED TO BE HAVINGHERE MORE
[2019-05-02 20:00] VITALS: BP 142/70
--- NOTE | 2019-05-02 20:24 | NUR ---
OT NOTE: PT COMPLETED BATHING TASKS WITH MOD/MAX A AT EOB. PT COMPLETED BED MOB TASKS WITH MOD/MIN A. NOTIFIED NURSE THAT PTS THUMB IS HURTING. THANK YOU,DEISY COTTON
--- NOTE | 2019-05-02 22:49 | NUR ---
RECEIVED BEDSIDE REPORT. PATIENT IS ALERT AND ORIENTED. RESPIRATIONS ARE EVEN AND UNLABORED. PATIENT STATING THAT HE COULDN'T BREATH. REPORTED TO ME THAT DAYSHIFT NURSE CALLED RENAL AN OREDER FOR BUMEX WAS PLACED. BUMEX GIVEN. RESPIRTORY AWARE THAT PATIENT IS REQUESTING A BREATHING TREATMENT. NO S/S OF DISTRESS. NO C/O PAIN. CALL LIGHT WITHIN REACH. WILL CPOC.
[2019-05-03] VITALS: BP 128/51
--- NOTE | 2019-05-03 02:20 | NUR ---
REFUSED PEG TUBE DRESSING CHANGE
[2019-05-03 04:27] VITALS: BP 113/48
[2019-05-03 05:18] LABS: BASOPHILS 0.1 % (0-2); EOSINOPHILS 2.4 % (0-7); HEMATOCRIT 27.9 % (42.0-54.0); HEMOGLOBIN 8.2 g/dL (13.5-17.5); IMMATURE GRANULOCYTES 0.5 % (0-5); LYMPHOCYTES 13.2 % (15-50); MCH 26.2 pg (26.0-34.0); MCHC 29.4 g/dL (31.0-37.0); MCV 89.1 fL (80.0-100.0); MEAN PLATELET VOLUME 9.6 fL (7.4-10.4); MONOCYTES 10.5 % (2-11); NEUTROPHILS 73.3 % (40-80); PLATELET COUNT 390 10x3/uL (130-400); RBC 3.13 10x6/uL (4.20-6.10); RDW 20.5 % (11.5-14.5)
[2019-05-03 05:37] LABS: ANION GAP 10.5 mmol/L (8-16); CALCIUM 8.4 mg/dL (8.5-10.1); CARBON DIOXIDE 27.5 mmol/L (21.0-32.0); CREATININE - SERUM 4.7 mg/dL (0.6-1.3)
[2019-05-03 05:44] LABS: WBC 19.6 10x3/uL (4.8-10.8)
--- NOTE | 2019-05-03 07:14 | NUR ---
REPORT RECEIVED. WILL CONTINUE WITH POC. PT CURRENTLY LYING SEMI FOWLERS. CALL LIGHT W/I REACH. PT IS AAO. RR EVEN AND LABORED ON 8L HIGH FLOW NC. L.CHEST HEMESPLIT IN PLACE. PEG TUBE IN PLACE. PT IS NPO FOR FISTULA REPAIR. PT STATES THAT HE IS HAVING TROUBLE BREATHING. PLACED PT IN HIGH FOWLERS AND CHECKED O2 SAT AND RECORDED SAT OF 98%. NOTIFIED RESPIRATORY. WILL CTM. NO FURTHER S/S OF DISTRESS NOTED.
[2019-05-03 07:37] VITALS: BP 122/33
--- NOTE | 2019-05-03 08:26 | MORECARE ---
CASE MANAGEMENT DISCHARGE SUMMARY PATIENT: ABBY PHILLIPS UNIT: [id number] ADM DATE: 04/19/19 AGE: 73 : [birth year] SEX: M ROOM/BED: D.3732 AUTHOR: BYRON,DOC PHYSICIAN: REFERRING PHYSICIAN: SAMUEL COOPER MD DATE OF SERVICE: 05/03/19 Discharge Plan Patient Name: ABBY PHILLIPS Facility: [facility] : 1945 Planned Disposition: Group Home Facility Anticipated Discharge Date: 05/04/19 Discharge Date: Expected LOS: 15 Initial Reviewer: [id number] Initial Review Date: 04/18/2019 Generated: 05/03/19 9:26 am Comments DCP- Discharge Planning Updated by [id number]: Brandin Garcia on 05/02/19 11:[address] Patient Name: ABBY PHILLIPS Encounter No: [id number] : 1945 Primary Insurance: [facility] [employer] [employer] Anticipated DC Date: 05-02-2019 Planned Disposition: Group Home Facility External Planned Provider: : DCP follow-up note: CM SPOKE TO PT IN ROOM, DISCUSSED OPTIONS FOR REHAB, INFORMED OF DENIALS AND ACCEPTANCE BY [facility]. PT STATES HE WILL GO TO [facility] FOR REHAB AND WOULD LIKE TO GET HOME SOON POSSIBLE. PT STATES HE IS DOING WELL WITH THERAPY AND FEELS HE MAY COULD GO HOME TODAY. CM EXPLAINED HAVING SAFE DISCHARGE AND NOTED PT'S VERY LIMITED ABILITY PER THERAPY NOTES, ENCOURAGED PT TO TAKE ADVANTAGE OF REHAB SERVICES THAT INSURANCE COVERS AT THE [facility]. PT IN AGREEMENT. CM CALLED CHARLEY PHILLIPS, , ADVISED CHARLEY OF ABOVE INFORMATION. CHARLEY IN AGREEMENT WITH [facility] AND DOES NOT WANT TO HOLD PLACEMENT FOR REHAB UP ANY LONGER. CHARLEY DOES NOT FEEL THAT PT IS SAFE TO DISCHARGE HOME AT THIS POINT AND NEEDS THE REHAB. CM CALLED BETINA OF [facility], , ADVISED THAT PT AND FAMILY IN AGREEMENT WITH REHAB AT [facility]. BETINA ADVISED THAT THE FACILITY WOULD PREFER AN EARLY DIALYSIS TIME, DAY IS NOT IMPORTANT, THEY WILL NOT TRANSPORT AFTER 5PM. CM NOTIFIED MAKSIM CHILD OF [facility] WHO WILL SEEK OUTPATIENT DIALYSIS UNIT IN [place]. PT NOTIFIED, IMPORTANT MESSAGE FROM MEDICARE PROVIDED AND EXPLAINED. [facility] HAS ACCEPTED PT AND IS WORKIING ON INSURANCE PRE AUTHORIZATION FOR REHAB SERVICES. MAKSIM OF [facility] IS WORKING ON OUTPATIENT DIALYSIS UNIT AND SCHEDULE THAT WILL ACCOMODATE [facility]HAB [facility]SP[facility]. Brandin Garcia, CASE MANAGEMENT DCP- Discharge Planning Updated by [id number]: Brandin Garcia on 05/02/19 10:[address] Patient Name: ABBY PHILLIPS Encounter No: [id number] : 1945 Primary Insurance: [facility] [employer] [employer] Anticipated DC Date: 05-02-2019 Planned Disposition: Group Home Facility External Planned Provider: [facility], MEDICARE REHAB BED DCP follow-up note: CM RECEIVED CALL FROM SYD OF [facility], , WAS ADVISED THEY ARE "PACKED" WITH NO BEDS AVAILABLE. CM RECEIVED CALL FROM BETINA OF [facility] [phone], WHO INFORMED CM THAT CLINICALLY, THEY WILL ACCEPT AND WILL ROZ FOR PRIOR AUTHORIZATION FROM PT'S INSURANCE FOR REHAB; BETINA WILL CALL CM SHORTLY REGARDING DIALYSIS UNIT PLACEMENT SCHEDULE NEEDS. BETINA WILL ALSO CALL PT'S SON. BETINA OF [facility], , CALLED, SHE HAS SPOKEN TO CHARLEY WHO DELINED PLACEMENT AT THE [facility] AND WANTS PLACEMENT AT [facility] OR [facility]. CM CALLED CHARLEY PHILLIPS AT [phone], LEFT MESSAGE ASKING FOR IMMEDIATE RETURN CALL. PT HAS BEEN DECLINED BY [facility] AND [facility]; PT HAS BEEN ACCEPTED CLINICALLY BY [facility] FOR REHAB PLACEMENT. PT'S FAMILY HAS CANCELLED PLACEMENT; CM WAITING ON RETURN CALL FROM CHARLEY PHILLIPS, PT'S SON. Brandin Garcia, CASE MANAGEMENT DCP- Discharge Planning Updated by [id number]: Brandin Garcia on 05/02/19 8:[address] Patient Name: ABBY PHILLIPS Encounter No: [id number] : 1945 Primary Insurance: [facility] [employer] [employer] Anticipated DC Date: 05-02-2019 Planned Disposition: Group Home Facility External Planned Provider: [facility], MEDICARE REHAB BED DCP follow-up note: CM FAXED UPDATE TO [facility] AT [phone]. CM CALLED [facility], , WAS ADVISED BY ISAIAH THAT ADMISSIONS STAFF WERE IN THEIR MORNING MEETING; CM LEFT MESSAGE ASKING FOR UPDATE ON REHAB REFERRAL WITH CM CONTACT INFORMATION. CM FAXED REFERRAL UDPATE FOR [facility] AT [phone]. BETINA OF [facility], , WILL SCREEN PT FOR REHAB ADMISSION, TODAY, , TO ASSESS PT FOR ADMISSION; [facility] IS IN NETWORK WITH PT'S INSURANCE.. PT HAS BEEN DECLINED BY [facility]; CM WAITING ADMISSION DETERMINATIONS FROM [facility] AND [facility] FOR REHAB PLACEMENT. IF ACCEPTED AT EITHER FACILITY, CM WILL REQUEST CHANGE OF OUTPATIENT DIALYSIS UNIT. Brandin Garcia, CASE MANAGEMENT DCP- Discharge Planning Updated by [id number]: Bradnin Garcia on 04/29/19 2:[address] Patient Name: ABBY PHILLIPS Encounter No: [id number] : 1945 Primary Insurance: [facility] [employer] Anticipated DC Date: 05-02-2019 Planned Disposition: Group Home Facility External Planned Provider: [facility], MEDICARE REHAB BED DCP follow-up note: CM RECEIVED CALL FROM PRASHANTH OF [facility] [place], THEY WILL NOT ACCEPT ANOTHER DIALYSIS PATIENT AT THIS TIME. CM CALLED [facility], , WAS ADVISED THAT ADMISSIONS STAFF WERE IN MEETING; CM LEFT MESSAGE ASKING FOR UPDATE ON REHAB REFERRAL WITH CM CONTACT INFORMATION. CM CALLED AND SPOKE TO BETINA OF [facility], ; BETINA INFORMED CM THAT SHE HAS SEVERAL HOMES IN THE [place] AREA AND WILL SCREEN PT FOR REHAB ADMISSION, SHE WILL PERSONALLY COME TO HOSPITAL ON THURSDAY, , TO ASSESS PT FOR ADMISSION; [facility] IS IN NETWORK WITH PT'S INSURANCE. CM FAXED REFERRAL FOR [facility] AT [phone]. CM UPDATED PT WHO REPORTS WANTING REHAB PLACEMENT IN [place] CLOSE TO HIS SON POSSIBLE. CM UPDATE DR. COOPER VIA PHONE. DR. COOPER ADVISED THAT PT IS READY TO DISCHARGE TO REHAB WHEN ACCEPTED. PT HAS BEEN DECLINED BY THE [facility]; CM WAITING ADMISSION DETERMINATIONS FROM [facility] AND [facility] FOR REHAB PLACEMENT. IF ACCEPTED AT EITHER FACILITY, CM WILL REQUEST CHANGE OF OUTPATIENT DIALYSIS UNIT. Brandin Garcia CASE MANAGEMENT DCP- Discharge Planning Updated by [id number]: Brandin Garcia on 04/29/19 6:[address] Patient Name: ABBY PHILLIPS Encounter No: [id number] : 1945 Primary Insurance: [facility] [employer] Anticipated DC Date: 04-21-2019 Planned Disposition: Group Home Facility External Planned Provider:[facility] OR [facility] IN [place], MEDICARE REHAB BED DCP follow-up note: CM REVIEWED CHART, PT DID PARTICIPATE WITH THERAPY ON 04-27-19 AND 04-28-19. PT HAS DEMONSTRATED ABILITY TO TRANSFER AND SIT IN CHAIR FOR THREE OR MORE HOURS. CM FAXED REFERRAL UPDATE TO [facility] AT [phone]. AND THE [facility] AT [phone]. CM WAITING ADMISSION DETERMINATIONS FROM [facility] AND THE [facility]. IF EITHER FACLITY WILL ACCEPT, CM WILL REQUEST CHANGE OF DIALYSIS UNIT. PT'S INSURANCE ALSO REQUIRES PRIOR AUTHORIZATION FOR REHAB PLACEMENT. Brandin Garcia, CASE MANAGEMENT DCP- Discharge Planning Updated by [id number]: Brandin Garcia on 04/28/19 6:[address] Patient Name: ABBY PHILLIPS Encounter No: [id number] : 1945 Primary Insurance: [facility] [employer] Anticipated DC Date: 04-21-2019 Planned Disposition: Group Home Facility External Planned Provider: [facility] OR [facility] IN [place], MEDICARE REHAB BED DCP follow-up note: CM REVIEWED CHART, PT DID PARTICIPATE WITH THERAPY ON 04-27-19. PT DID SIT UP IN CHAIR FOR THREE OR MORE HOURS. CM FAXED REFERRAL UPDATE TO [facility] AT [phone]. AND [facility] AT [phone]. CM WAITING ADMISSION DETERMINATIONS FROM [facility] AND [facility]. IF EITHER FACLITY WILL ACCEPT, CM WILL REQUEST CHANGE OF DIALYSIS UNIT. PT'S INSURANCE ALSO REQUIRES PRIOR AUTHORIZATION FOR REHAB PLACEMENT. SELENA Escobedo MANAGEMENT DCP- Discharge Planning Updated by [id number]: Brandin Garcia on 04/27/19 11:[address] Patient Name: ABBY PHILLIPS Encounter No: [id number] : 1945 Primary Insurance: [facility] [employer] Anticipated DC Date: 04-21-2019 Planned Disposition: Group Home Facility External Planned Provider: [facility] OR [facility] [place], MEDICARE REHAB BED DCP follow-up note: CM REVIEWED CHART, PT DID NOT PARTICIPATE WITH THERAPY ON 04-26-19. CM MET WITH PT IN ROOM TO DISCUSS DISCHARGE PLANNING AND NEEDS. PT DOES NOT WANT PRISON CARE OR HOSPICE. PT INSISTS THAT HE WANTS REHAB SERVICES. CM EXPLAINED THAT PT HAS TO PARTICIPATE FULLY WITH THERAPY EACH TIME OFFERED INSURANCE WILL NOT PAY FOR REHAB SERVICES WITHOUT PARTICIPATION WITH OFFERED THERAPY. PT REPORTS UNDERSTANDING. PT PROMISES TO PARTICIPATE WITH THERAPY SERVICES AND UNDERSTANDS THAT HE MUST SIT UP IN CHAIR FOR THREE OR MORE HOURS TO SHOW HE CAN GO TO OUTPATIENT DIALYSIS. CM RECEIVED CALL FROM MATILDA OF [facility] WHO WILL FOLLOW, BUT WILL ONLY CONSIDER IF PT IS PARTICIPATING WITH THERAPY. CM TO FAX REFERRAL UPDATE STO [facility] AT [phone]. AND [facility] AT [phone], ONCE NEW THERAPY NOTES ARE DOCUMENTED ON 04-27. CM WAITING ADMISSION DETERMINATIONS FROM [facility] AND [facility]. IF EITHER FACLITY WILL ACCEPT, CM WILL REQUEST CHANGE OF DIALYSIS UNIT. PT'S INSURANCE ALSO REQUIRES PRIOR AUTHORIZATION FOR REHAB PLACEMENT. SELENA Escobedo MANAGEMENT DCP- Discharge Planning Updated by [id number]: Brandin Garcia on 04/26/19 8:[address] Patient Name: ABBY PHILLIPS Encounter No: [id number] : 1945 Primary Insurance: [facility] [employer] Anticipated DC Date: 04-21-2019 Planned Disposition: Group Home Facility External Planned Provider:[facility] OR [facility] [place], MEDICARE REHAB BED DCP follow-up note: CM FAXED REFERRALUPDATE TO [facility] AT [phone]. CM FAXED REFERRAL UDPATE FOR THE [facility] TO PRASHANTH AT [phone]. CM TO DISCUSS WITH REHAB TODAY THAT PT NEEDS TO HAVE DEMONSTRATED ABILITY TO SIT FOR THREE OR MORE HOURS IN CHAIR FOR OUTPATIENT DIALYSIS. CM WAITING ADMISSION DETERMINATIONS FROM [facility] AND [facility]. Brandin Garcia CASE MANAGEMENT DCP- Discharge Planning Updated by [id number]: Brandin Garcia on 04/25/19 1:[address] Patient Name: ABBY PHILLIPS Encounter No: [id number] : 1945 Primary Insurance: [facility] [employer] Anticipated DC Date: 04-21-2019 Planned Disposition: Group Home Facility External Planned [facility] IN [place], MEDICARE REHAB BED DCP follow-up note: CM RECEIVED CALL FROM CHARLEY PHILLIPS, PT'S SON, WHO ASKED WHAT IS TAKING SO LONG TO GET PT INTO REHAB IN [place]. CM EXPLAINED PLACEMENT PROCESS, INSURANCE APPROVAL TIME FRAME AND ALSO THE PROCESS OF HAVING TO GET ACCEPTING DIALYSIS UNIT IF CM CAN GET FACILITY TO ACCEPT PT. CHARLEY REPORTS UNDERSTANDING. CM CALLED [facility], , SPOKE TO SYD WHO INFORMED CM THAT SHE DID NOT GET THE REFERRAL. CM CONFIRMED FAX NUMBER, REVIEWED AND FOUND FAX CONFIRMATION FROM THURSDAY. CM FAXED REFERRAL AND UPDATE TO [facility] AT [phone]. CM SPOKE PRASHANTH OF THE [facility], , SHE WILL CALL THE [facility] AND GET UPDATE SHE HAS NOT "HEARD A WORD". CM FAXED REFERRAL UDPATE FOR [facility] TO PRASHANTH AT [phone]. CM WAITING ADMISSION DETERMINATIONS FROM [facility] AND [facility]. Brandin Garcia, CASE MANAGEMENT DCP- Discharge Planning Updated by [id number]: Brandin Garcia on 04/22/19 10:[address] Patient Name: ABBY PHILLIPS Encounter No: [id number] : 1945 Primary Insurance: [facility] [employer] Anticipated DC Date: 04-21-2019 Planned Disposition: Group Home Facility External [facility] IN [place], MEDICARE REHAB BED DCP follow-up note: CM SPOKE TO PT IN ROOM REGARDING DISCHARGE PLANNING. PT WILL GO TO REHAB IN [place] SO HE WILL BE CLOSE TO HIS SON. PT ASKED CM TO HURRY UP HE IS TIRED OF BEING IN THE HOSPITAL. CM EXPLAINED TO PT THAT IF HE WOULD HAVE DECIDED SOONER, CM WOULD HAVE ALREADY BEEN WORKING ON REHAB PLACEMENT. PT SIGNED CONSENT FOR [facility] SUGGESTED BY HIS SON AND FOR ANY [facility] REHAB IN [place]. CM EXPLAINED TO PT THAT HIS INSURANCE MAY TAKE SEVERAL DAYS TO APPROVE OR DECLINE REHAB SERVICES AND THAT CM WILL HAVE TO FIND A FACILITY THAT WILL TRANSPORT TO DIALYSIS AND IF ALL OF THAT IS DONE, CM WILL HAVE TO REQUEST A NEW DIALYSIS UNIT. PT REPORTS UNDERSTANDING. CM CALLED [facility], , SPOKE TO KAVIN WHO WILL SCREEN FOR ADMISSION. CM FAXED REFERRAL TO [facility] AT [phone]. CM NOTIFIED PRASHANTH OF [facility], , OF REFERRAL. CM FAXED REFERRAL FOR [facility] TO PRASHANTH AT [phone]. CM WAITING ADMISSION DETERMINATIONS FROM [facility] AND [facility]. Brandin Garcia, CASE MANAGEMENT DCP- Discharge Planning Updated by [id number]: Brandin Garcia on 04/21/19 4:[address] Patient Name: ABBY PHILLIPS Encounter No: [id number] : 1945 Primary Insurance: [facility] [employer] Anticipated DC Date: 04-21-2019 Planned Disposition: Group Home Facility External Planned Provider: [facility] OR OTHER [facility] IN [place] DCP follow-up note: CM RECEIVED CALL FROM CHARLEY JACQUELINE, PT'S SON, WHO REPORTS THAT HE HAS TALKED TO PT VIA PHONE AND PT IS NOW AGREEING TO GO TO [facility] REHAB IN [place], CLOSE TO HIS SON. CM ATTEMPTED TO SEE PT WHO WAS OUT OF ROOM AT APPROXIMATELY 1345 HOURS. CM WILL SPEAK TO PT SOON POSSIBLE REGARDING [facility] REHAB IN [place] AND SEND REFERRALS IF PT WILL SIGN THE CONSENT. Brandin Garcia CASE MANAGEMENT DCP- Discharge Planning Updated by [id number]: Brandin Garcia on 04/21/19 11:[address] Patient Name: ABBY PHILLIPS Encounter No: [id number] : 1945 Primary Insurance: [facility] [employer] Anticipated DC Date: 04-21-2019 Planned Disposition: Left Against Medical Advice DCP follow-up note: CM SPOKE TO BEDSIDE NURSE WHO REPORTS PT'S SISTER, JORGE, CALLED AND STATES SHE WILL NOT BE PICKING PT UP FOR TRANSPORT HOME. CM MET WITH PT IN ROOM TO DISCUSS DISCHARGE PLANNING AND NEEDS. PT REPORTS STILL PLANNING TO LEAVE WHEN HE FINDS A RIDE. CM EXPLAINED THAT PT'S FAMILY MEMBERS ARE CALLING AND INFORMING HOSPITAL STAFF THEY ARE NOT PICKING UP PT. PT STATES HE HAS FRIENDS THAT ARE GOING TO HELP. CM PROVIDED PT WITH MEDICARE WEBSITE RESULTS FOR FPC REHABS WITHIN 50 MILES OF HIS HOME. CM EXPLAINED THAT [facility] WILL NOT ACCEPT PT BACK AND THAT IF PT CHANGES HIS MIND AND DECIDES TO GO TO REHAB, CM WILL NEED PT'S TOP TWO SELECTIONS AND SIGNATURE ON THE CHOICE FORM. IMPORTANT MESSAGE FROM MEDICARE PROVIDED AND EXPLAINED. PT ASKED CM TO CALL ADAM SANCHES, PHARMACIST AT [facility] TO HAVE HER , JOHN SANCHES, CALL PT. CM CALLED AND WAS ADVISED BY ADAM THAT AGUSTIN SPOKE TO PT YESTERDAY AND SHE WILL LET HER KNOW THAT PT WANTS TO TALK TO HIM AGAIN. CM STILL REFUSING FPC FACLITY PLACEMENT. CM WAITING ON PT TO DEVELOP TRANSPORTATION HOME. IF TRANSPORTATION IS VERIFIED, CALL JEANN[facility], , WILL HAS AGREED TO ARRANGE PORTABLE OXGYEN TO HOSPITAL FOR PT TO LEAVE HOSPITAL. CM TO CONTINUE TO FOLLOW AND ASSIST NEEDED. Art Librarian: Brandin Garcia DCP- Discharge Planning Updated by [id number]: Brandin Garcia on 04/21/19 8:[address] Patient Name: ABBY PHILLIPS Encounter No: [id number] : 1945 Primary Insurance: [facility] [employer] Anticipated DC Date: 04-21-2019 Planned Disposition: Left Against Medical Advice DCP follow-up note: CM SPOKE TO HERIBERTO SANCHES REGARDING PT'S DISCHARGE PLAN. TREATMENT TEAM CONCERNED THAT PT DOES NOT HAVE SAFE DISCHARGE PLAN. CM MET WITH HERIBERTO SANCHES WITH PT IN ROOM. PT INSISTS THAT HE WILL GO HOME, JOHN SANCHES, , WILL PICK HIM UP. PT REPORTS ALEXSANDRA LOPEZ, A FRIEND FROM [place] WILL ASSIST WITH CARING FOR PT IN HOME AND ASSIST WITH GETTING TO AND FROM DIALYSIS. PT REPORTS HE NORMALLY DRIVES HIMSELF TO AND FROM DIALYSIS AND IS ABLE TO TRANSFER HIMSELF TO A WHEELCHAIR, GET TO HIS CAR, GET THE WHEELCHAIR INTO THE TRUCK OF THE CAR AND THEN WALK TO AND GET INTO THE DRIVERS SEAT HOLDING ON TO THE CAR. PT REPORTS HAVING ELECTRIC AND MANUAL WHEELCHAIR AND IS ABLE TO TRANSFER HIMSELF FROM BED TO CHAIR AND CHAIR TO BED. PT DOES NOT KNOW THE NUMBER TO HIS FRIEND ALEXSANDRA, TO VERIFY HE WILL ASSIST AFTER DISCHARGE. PT REPORTS HIS SISTER HANDY LIVES IN HIS HOUSE AND HAS FOR FOUR MONTHS. CM ADVISED THAT FAMILY INFORMED STAFF HERE THAT PT NEEDS NURSING REHAB. PT REPORTS THAT HIS FAMILY IS WANTING TO KEEP HIM AWAY AND IN THE PENITENTIARY. HERIBERTO SANCHES ADVISED THAT PT MUST HAVE A SAFE AND VERIFIABLE PLAN TO DISCHARGE HOME. CM ATTEMPTED TO CALL JOHN SANCHES, ; THERE WAS NO ANSWER AND NO MESSAGE MACHINE. CM CALLED [facility], , SPOKE TO STEAMBOAT INSPECTOR RAYNE WHO INFORMED CM THAT THEY CAN DELIVER PORTABLE OXYGEN TO PT'S ROOM FOR DISCHARGE IF NEEDED. HARSHAL SPOKE TO PT IN ROOM, HERIBERTO SANCHES WAS IN ROOM SPEAKING TO PT. PT STATES HE IS LEAVING "AMA". HERIBERTO SANCHES INFORMED PT THAT PT MUST HAVE A PERSON TO VERIFY THEY ARE TRANSPORTING PRIOR TO ANY AMA FORMS BEING PRESENTED. CM ADVISED PT IF HE IS ABLE TO VERIFY TRANSPORATATION BY CM SPEAKING TO THAT PERSON AND THEY AGREE TO PLANT OPERATIONS MANAGER PT, CM WILL ASK JEANNIE TO DELIVER PORTABLE OXYGEN TO ROOM. CM ASKED THAT IF PT CHANGES HIS MIND AND DECIDES TO GO TO FPC REHAB, TO PLEASE NOTIFY CM AND CM WILL BE GLAD TO ASSIST WITH PLACEMENT. PT DECLINED. CM WAITING ON PT TO DEVELOP TRANSPORTATION HOME. IF TRANSPORTATION IS VERIFIED, CALL JEANNIE, , WILL HAS AGREED TO ARRANGE PORTABLE OXGYEN TO HOSPITAL FOR PT TO LEAVE HOSPITAL. CM TO CONTINUE TO FOLLOW AND ASSIST NEEDED. Art Librarian: Brandin Garcia DCP- Discharge Planning Updated by [id number]: Brandin Garcia on 04/20/19 1:[address] Patient Name: ABBY PHILLIPS Encounter No: [id number] : 1945 Primary Insurance: [facility] [employer] Anticipated DC Date: 04-19-2019 Planned Disposition: Home DCP follow-up note: CM MET WITH PT IN ROOM AND ENCOURAGED PT TO GO TO REHAB PRIOR TO DISCHARGE HOME. PT CONTINUES TO REFUSE AND REPORTS HIS SISTER WILL PICK HIM UP FOR DISCHARGE HOME. PT STATES HE MAY NEED OXYGEN FROM [facility] AGAIN TO GO HOME. CM EXPLAINED THAT IF HIS SISTER IS PICKING HIM UP AND SHE IS STAYING WITH PT IN PT'S HOME, SHE SHOULD BRING OXYGEN WITH HER. PT WILL REQUEST HIS SISTER BRING OXYGEN WITH HER. CM RECEIVED CALL FROM MIRIAM GORDON, , WHO INFORMED CM THAT PT HAS BEEN CALLING STATING HE IS GOING TO BE DISCHARGED TODAY AND NEEDS A RIDE HOME. JORGE STATES PT NEEDS TO GO BACK TO NURSING FACILITY FOR REHAB AND NOT HOME. CM EXPLAINED THAT CM CANNOT MAKE PT DO SOMETHING AGAINST PT'S WILL AND THAT IF PT IS NOT DEEMED INCOMPETENT BY A PHYSICIAN OR COURT, PT CAN MAKE BAD DECISIONS FOR HIMSELF. CM EXPLAINED HOW TO FILE FOR GUARDIANSHIP OF A PERSON AND THAT THIS WOULD HAVE TO BE GRANTED FOR ANYONE TO MAKE PT DO SOMETHING AGAINST HIS WILL. JORGE REPORTS UNDERSTANDING. PT PLANS TO DISCHARGE HOME WITH HIS SISTER, PT REPORTS HIS SISTER WILL PICK HIM UP FOR DISCHARGE HOME. PT DECLINES PENITENTIARY, FPC OR REHAB PLACEMENT. PATIENT IS NOT APPROPRIATE FOR HOME HEALTH PER [facility]. Art Librarian: Brandin Garcia DCP- Discharge Planning Updated by [id number]: Brandin Garcia on 04/19/19 3:[address] Patient Name: ABBY PHILLIPS Admission Status: ER Accout number: [id number] Admission Date: 04-19-2019 : 1945 Admission Diagnosis: Attending: SAMUEL COOPER Current LOS: 1 Anticipated DC Date: 04-19-2019 Planned Disposition: Home Primary Insurance: [facility] [employer] Discharge Planning Comments: CM MET WITH PT IN ROOM TO DISCUSS DISCHARGE PLANNING AND NEEDS. PT REPORTS LIVING AT HOME DEPENDENTLY WITH HIS SISTER HANDY WHO IS STAYING WITH PT IN PT'S HOME TO CARE FOR PT. . PT HAS [employer] L[employer] WHEELCHAIR WELL HOME AND PORTABLE OXYGEN FROM [facility]. PT HAS NO OUTSIDE SERVICES ASSISTING IN THE HOME [facility] DECLINED TO ADMIT HIM AND TOLD HIM HE HAS TO BE DOING BETTER FOR HOME HEALTH SERVICES. CM DISCUSSED AVAILABILITY OF HOME HEALTH, REHAB SERVICES AND MEDICAL EQUIPMENT. PT DECLINED PENITENTIARY OR REHAB PLACEMENT. PT DENIES DISCHARGE NEEDS, REPORTS HIS SISTER HANDY WILL PICK HIM UP FOR DISCHARGE HOME. PT REPORTS MISSING DIALYSIS BECAUSE HE WENT ON THURSDAY AND THEY DID NOT HAVE A SLING TO USE ON THE LIFT TO PICK HIM UP AT THE DIALYSIS UNIT. PT STATES HE HAS A SLING AT HOME AND FORGOT ABOUT IT. PT REPORTS HIS SISTER USES THE [employer] LIFT TO GET HIM TO THE WHEELCHAIR AND THEY WILL LEAVE THE SLING UNDER HIM FOR DIALYSIS TO USE FROM NOW ON. CHOICE SIGNED FOR [facility] TO VERIFY WITH THEM THAT THEY WILL NOT SEE PT. CM CALLED [facility], , LEFT MESSAGE ASKING FOR THE NURSE TO CALL CM BACK. PT PLANS TO DISCHARGE HOME WITH HIS SISTER, PT REPORTS HIS SISTER WILL PICK HIM UP FOR DISCHARGE HOME. PT DECLINES PENITENTIARY, FPC OR REHAB PLACEMENT. Art Librarian: Brandin Garcia Appended by Brandin Garcia on 04/19/2019 16:56 CDT: CM RECEIVED CALL FROM JERICA OF [facility] WHO INFORMED CM THAT THEY DID GO FOR THE HOME HEALTH ADMIT AND INFORMED PT AND FAMILY THAT PT NEEDS REHAB AND IS NOT APPROPRIATE FOR HOME HEALTH SERVICES AT THIS TIME. PT PLANS TO DISCHARGE HOME WITH HIS SISTER, PT REPORTS HIS SISTER WILL PICK HIM UP FOR DISCHARGE HOME. PT DECLINES PENITENTIARY, FPC OR REHAB PLACEMENT. Art Librarian: Brandin Garcia DCPIA - Discharge Planning Initial Assessment Updated by [id number]: Brandin Garcia on 04/22/19 11:13 am * Is the patient Alert and Oriented? Yes * How many steps to enter\\exit or inside your home? NONE * PCP DR. ARACELI SIDHU * [facility] * Preadmission Environment Home with Family * ADLs Partial Dependent * Partial ADLs (Assistance needed) Ambulation Bathing Dressing Medication Management Toileting Transfers * Equipment [employer] Lift Oxygen Wheelchair * Other Equipment HOME AND PORTABLE OXYGEN, [facility] * List name and contact numbers for known caregivers / representatives who currently or will assist patient after discharge: HANDY JONES, SISTER [phone] JORGE GORDON, SISTER, CHARLEY PHILLIPS, SON, * Verbal permission to speak to the caregivers and representatives has been obtained from the patient. Yes * Community resources currently utilized None * Please name any agencies selected above. PT HAD INTAKE WITH [employer] FROM [place], ACCORDING TO PT, THEY DECLINED T PROVIDE SERVICES UNTIL HE WAS "DOING BETTER" OUTPATIENT DIALYSIS , TTS, 1000AM, [place]. PT REPORTS HE HAS BEEN DRIVING HIMSELF. * Additional services required to return to the preadmission environment? No * Can the patient safely return to the preadmission environment? Yes * Has this patient been hospitalized within the prior 30 days at any hospital? Yes Coverage Notice Reviewer: [id number] Skylar Deborahbon Augustin Notice Issued Date-Time: 04/19/2019 9:30 Notice Type: Medicare Outpatient Observation Notice Notice Delivered To: Patient Relationship to Patient: Self Car Stower Name: Delivery Method: HAND - Hand Delivered Anusha Days: Prior Verbal Notification: Recipient Understood Notice: Yes Recipient Signature: Yes Med Rec Note Co-signed by Attending: Coverage Notice Comment: Reviewer: LIO Garcia Notice Issued Date-Time: 04/19/2019 12:15 Notice Type: Patient Choice Letter Notice Delivered To: Patient Relationship to Patient: Car Stower Name: Delivery Method: HAND - Hand Delivered Anusha Days: Prior Verbal Notification: Recipient Understood Notice: Yes Recipient Signature: Yes Med Rec Note Co-signed by Attending: Coverage Notice Comment: [facility] Reviewer: [id number] Garcia Notice Issued Date-Time: 04/21/2019 11:45 Notice Type: IM Discharge Notice Notice Delivered To: Patient Relationship to Patient: Car Stower Name: Delivery Method: HAND - Hand Delivered Anusha Days: Prior Verbal Notification: Recipient Understood Notice: Yes Recipient Signature: Yes Med Rec Note Co-signed by Attending: Coverage Notice Comment: Reviewer: LIO Garcia Notice Issued Date-Time: 04/22/2019 16:05 Notice Type: Patient Choice Letter Notice Delivered To: Patient Relationship to Patient: Car Stower Name: Delivery Method: HAND - Hand Delivered Anusha Days: Prior Verbal Notification: Recipient Understood Notice: Yes Recipient Signature: Yes Med Rec Note Co-signed by Attending: Coverage Notice Comment: [facility]. Reviewer: LIO Garcia Notice Issued Date-Time: 05/02/2019 12:48 Notice Type: IM Discharge Notice Notice Delivered To: Patient Relationship to Patient: Car Stower Name: Delivery Method: HAND - Hand Delivered Anusha Days: Prior Verbal Notification: Recipient Understood Notice: Yes Recipient Signature: Yes Med Rec Note Co-signed by Attending: Coverage Notice Comment: Last DP export: 05/02/19 11:39 Patient Name: ABBY PHILLIPS Page [phone] at 0826 All edits/amendments must be made on the electronic document DICTATION DATE: 05/03/19824 PSYCHIATRIC AIDE: APRIL 05/03/19824 RPT#: [id number] DC DATE: STATUS: ADM IN [facility] [address] [place] [address] END OF REPORT
[2019-05-03 11:10] VITALS: BP 128/52
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
--- NOTE | 2019-05-03 13:13 | NUR ---
CONSENTS SIGNED. EKG PERFORMED. PREOP MEDICATIONS SENT WITH OR TECH. PT TRANSFERED TO OR. WILL CTM.
--- NOTE | 2019-05-03 14:04 | NUR ---
Nutrition Follow-up: NPO for procedure. Good/fair appetite/PO intake. Drinks 2 Nepro/day. Reports constipation and wants laxative; noted Colace PRN ordered. PO intake: 67% avg x 3 meals No new wt Last BM: 04/29 Labs noted: Glu 115, Na 127 Meds noted: Lasix, Humalog, Colace -Rec resume Renal ADA diet with Nepro following procedure. -Rec new wt. -RD following.
--- NOTE | 2019-05-03 15:11 | NUR ---
I have reviewed this patient and I concur with the Shift Assessment completed by the Licensed Practical Nurse today this shift.
--- NOTE | 2019-05-03 15:29 | NUR ---
D/C PER ANESTHESIA. ON 5L OXIMIZER PREOP.
--- NOTE | 2019-05-03 18:19 | NUR ---
OT NOTE: PT EXHIBITED SELF LIMITING BEHAVIOR. PT REQUIRED MOD CUES TO INCREASE INDEPENDENT PARTICIPATION WITH ACTIVITIES OF DAILY LIVING. PT REQUESTED [facility]IV[facility] TO CLEAN FACE AND UPPER BODY. OLIVAS EXPLAINED THE BENEFITS OF ACTIVE PARTICPATION WITH THERAPY IN ORDER TO GAIN INDEPENDENT FUNCTION. PT COMPLETED BATHING TASKS WITH MIN A FOR UPPER BODY. PT REQUIRED MAX/TOTAL A FOR LOWER BODY. PT COMPLETED BED TO CHAIR TRANSFER WITH MOD A. THANK YOU,DEISY COTTON
[2019-05-03 20:00] VITALS: BP 127/55
--- NOTE | 2019-05-03 20:20 | NUR ---
PT BACK FROM DIALYSIS. VSS STABLE. APPLIED BARRIER CREAM TO PTS BUTTOCKS AND APPLIED A NEW MEPILEX TO COCCYX PER PTS REQUEST. HE IS ALERT AND ORIENTED X 4. BLOOD SUGAR 104. NO INSULIN PER SLIDING SCALE. ENCOURAGED HIM TO LET ME CHANGE HIS PEG TUBE DRESSING. IT IS SATURATED WITH OLD DRAINAGE, BROWNISH IN COLOR AND A FOUL SMELL COMING FROM THE PEG/DRESSING. PT STATES, "MAYBE LATER BUT NOT RIGHT NOW BECAUSE I WANT A SANDWICH." GAVE HIM A SANDWICH. DENIES PAIN OR FURTHER NEEDS. PM MEDS GIVEN. BED LOW, FALL ALARM ON AND CALL LIGHT IN REACH.
[2019-05-04] VITALS (18 sets, daily range): BP systolic 105–169; BP diastolic 47–95
[2019-05-04 07:10] LABS: BASOPHILS 0.1 % (0-2); EOSINOPHILS 1.1 % (0-7); HEMATOCRIT 29.8 % (42.0-54.0); HEMOGLOBIN 8.7 g/dL (13.5-17.5); IMMATURE GRANULOCYTES 0.6 % (0-5); LYMPHOCYTES 10.8 % (15-50); MCH 26.5 pg (26.0-34.0); MCHC 29.2 g/dL (31.0-37.0); MCV 90.9 fL (80.0-100.0); MEAN PLATELET VOLUME 9.8 fL (7.4-10.4); MONOCYTES 7.5 % (2-11); NEUTROPHILS 79.9 % (40-80); PLATELET COUNT 386 10x3/uL (130-400); RBC 3.28 10x6/uL (4.20-6.10); RDW 21.4 % (11.5-14.5); WBC 18.9 10x3/uL (4.8-10.8)
[2019-05-04 07:13] LABS: ANION GAP 9.2 mmol/L (8-16); CALCIUM 8.3 mg/dL (8.5-10.1); CREATININE - SERUM 3.3 mg/dL (0.6-1.3); POTASSIUM - SERUM 4.2 mmol/L (3.5-5.1)
--- NOTE | 2019-05-04 08:46 | MORECARE ---
CASE MANAGEMENT DISCHARGE SUMMARY PATIENT: ABBY PHILLIPS UNIT: [id number] ADM DATE: 04/19/19 AGE: 73 : [birth year] SEX: M ROOM/BED: D.8394 AUTHOR: BYRON,DOC PHYSICIAN: REFERRING PHYSICIAN: SAMUEL COOPER MD DATE OF SERVICE: 05/04/19 Discharge Plan Patient Name: ABBY PHILLIPS Facility: [facility]:[place] : 1945 Planned Disposition: Fdc Facility Anticipated Discharge Date: 05/04/19 Discharge Date: Expected LOS: 15 Initial Reviewer: [id number] Initial Review Date: 04/18/2019 Generated: 05/04/19 9:45 am Comments DCP- Discharge Planning Updated by [id number]: Brandin Garcia on 05/04/19 7:[address] Patient Name: ABBY PHILLIPS Encounter No: [id number] : 1945 Primary Insurance: [facility] MEDICARE SOLUTIONS Anticipated DC Date: 05-04-2019 Planned Disposition: Fdc Facility External Planned Provider: [facility], MEDICARE REHAB BED DCP follow-up note: CM CALLED BETINA OF THE [facility], , ADVISED THAT CM FAXING UPDATE FOR REHAB ADMISSION. CM RECEIVED MESSAGE FROM MAKSIM CHILD OF [facility] WHO IS WORKING ON OUTPATIENT DIALYSIS UNIT IN [place]. CM FAXED UPDATE TO THE [facility] AT [phone]. THE [facility] HAS ACCEPTED PT AND IS WORKIING ON INSURANCE PRE AUTHORIZATION FOR REHAB SERVICES. MAKSIM OF [facility] IS WORKING ON OUTPATIENT DIALYSIS UNIT AND SCHEDULE THAT WILL ACCOMODATE [facility]HAB TRANSPORTATION [facility]. Brandin Garcia, CASE MANAGEMENT DCP- Discharge Planning Updated by [id number]: Brandin Garcia on 05/04/19 7:[address] Patient Name: ABBY PHILLIPS Encounter No: [id number] : 1945 Primary Insurance: [facility] MEDICARE SOLUTIONS Anticipated DC Date: 05-02-2019 Planned Disposition: Fdc Facility External Planned Provider: [facility], MEDICARE REHAB BED DCP follow-up note: CM SPOKE TO PT IN ROOM, DISCUSSED OPTIONS FOR REHAB, INFORMED OF DENIALS AND ACCEPTANCE BY THE [facility]. PT STATES HE WILL GO TO [facility] FOR REHAB AND WOULD LIKE TO GET HOME SOON POSSIBLE. PT STATES HE IS DOING WELL WITH THERAPY AND FEELS HE MAY COULD GO HOME TODAY. CM EXPLAINED HAVING SAFE DISCHARGE AND NOTED PT'S VERY LIMITED ABILITY PER THERAPY NOTES, ENCOURAGED PT TO TAKE ADVANTAGE OF REHAB SERVICES THAT INSURANCE COVERS AT THE [facility]. PT IN AGREEMENT. CM CALLED CHARLEY JACQUELINE, , ADVISED CHARLEY OF ABOVE INFORMATION. CHARLEY IN AGREEMENT WITH THE [facility] AND DOES NOT WANT TO HOLD PLACEMENT FOR REHAB UP ANY LONGER. CHARLEY DOES NOT FEEL THAT PT IS SAFE TO DISCHARGE HOME AT THIS POINT AND NEEDS THE REHAB. CM CALLED BETINA OF THE [facility], , ADVISED THAT PT AND FAMILY IN AGREEMENT WITH REHAB AT THE [facility]. BETINA ADVISED THAT THE FACILITY WOULD PREFER AN EARLY DIALYSIS TIME, DAY IS NOT IMPORTANT, THEY WILL NOT TRANSPORT AFTER 5PM. CM NOTIFIED MAKSIM CHILD OF [facility] WHO WILL SEEK OUTPATIENT DIALYSIS UNIT IN [place]. PT NOTIFIED, IMPORTANT MESSAGE FROM MEDICARE PROVIDED AND EXPLAINED. THE [facility] HAS ACCEPTED PT AND IS WORKIING ON INSURANCE PRE AUTHORIZATION FOR REHAB SERVICES. MAKSIM OF [facility] IS WORKING ON OUTPATIENT DIALYSIS UNIT AND SCHEDULE THAT WILL ACCOMODATE [facility]AB TRANSP[facility]ATION [facility]. Brandin Garcia, CASE MANAGEMENT DCP- Discharge Planning Updated by [id number]: Brandin Garcia on 05/02/19 10:[address] Patient Name: ABBY PHILLIPS Encounter No: [id number] : 1945 Primary Insurance: [facility] MEDICARE SOLUTIONS Anticipated DC Date: 05-02-2019 Planned Disposition: Fdc Facility External Planned Provider: [facility], MEDICARE REHAB BED DCP follow-up note: CM RECEIVED CALL FROM SYD OF [facility], , WAS ADVISED THEY ARE "PACKED" WITH NO BEDS AVAILABLE. CM RECEIVED CALL FROM BETINA OF THE [facility] [phone], WHO INFORMED CM THAT CLINICALLY, THEY WILL ACCEPT AND WILL ROZ FOR PRIOR AUTHORIZATION FROM PT'S INSURANCE FOR REHAB; BETINA WILL CALL CM SHORTLY REGARDING DIALYSIS UNIT PLACEMENT SCHEDULE NEEDS. BETINA WILL ALSO CALL PT'S SON. BETINA OF THE [facility], , CALLED, SHE HAS SPOKEN TO CHARLEY WHO DELINED PLACEMENT AT THE [facility] AND WANTS PLACEMENT AT [facility] OR [facility]. CM CALLED CHARLEY PHILLIPS AT [phone], LEFT MESSAGE ASKING FOR IMMEDIATE RETURN CALL. PT HAS BEEN DECLINED BY [facility]; PT HAS BEEN ACCEPTED CLINICALLY BY THE [facility] FOR REHAB PLACEMENT. PT'S FAMILY HAS CANCELLED PLACEMENT; CM WAITING ON RETURN CALL FROM CHARLEY PHILLIPS, PT'S SON. Brandin Garcia, CASE MANAGEMENT DCP- Discharge Planning Updated by [id number]: Brandin Garcia on 05/02/19 8:[address] Patient Name: ABBY PHILLIPS Encounter No: [id number] : 1945 Primary Insurance: [facility] MEDICARE SOLUTIONS Anticipated DC Date: 05-02-2019 Planned Disposition: Fdc Facility External Planned Provider: [facility], MEDICARE REHAB BED DCP follow-up note: CM FAXED UPDATE TO [facility] AT [phone]. CM CALLED [facility], , WAS ADVISED BY ISAIAH THAT ADMISSIONS STAFF WERE IN THEIR MORNING MEETING; CM LEFT MESSAGE ASKING FOR UPDATE ON REHAB REFERRAL WITH CM CONTACT INFORMATION. CM FAXED REFERRAL UDPATE FOR THE [facility] AT [phone]. BETINA OF THE [facility], , WILL SCREEN PT FOR REHAB ADMISSION, TODAY, , TO ASSESS PT FOR ADMISSION; THE [facility] IS IN NETWORK WITH PT'S INSURANCE.. PT HAS BEEN DECLINED BY THE [facility]; CM WAITING ADMISSION DETERMINATIONS FROM [facility] AND THE [facility] FOR REHAB PLACEMENT. IF ACCEPTED AT EITHER FACILITY, CM WILL REQUEST CHANGE OF OUTPATIENT DIALYSIS UNIT. Brandin Garcia, CASE MANAGEMENT DCP- Discharge Planning Updated by [id number]: Brandin Garcia on 04/29/19 2:[address] Patient Name: ABBY PHILLIPS Encounter No: [id number] : 1945 Primary Insurance: [facility] MEDICARE SOLUTIONS Anticipated DC Date: 05-02-2019 Planned Disposition: Fdc Facility External Planned Provider: [facility], MEDICARE REHAB BED DCP follow-up note: CM RECEIVED CALL FROM PRASHANTH OF THE [facility], THEY WILL NOT ACCEPT ANOTHER DIALYSIS PATIENT AT THIS TIME. CM CALLED [facility], , WAS ADVISED THAT ADMISSIONS STAFF WERE IN MEETING; CM LEFT MESSAGE ASKING FOR UPDATE ON REHAB REFERRAL WITH CM CONTACT INFORMATION. CM CALLED AND SPOKE TO BETINA OF THE [facility], ; BETINA INFORMED CM THAT SHE HAS SEVERAL HOMES IN THE [place] AREA AND WILL SCREEN PT FOR REHAB ADMISSION, SHE WILL PERSONALLY COME TO HOSPITAL ON THURSDAY, , TO ASSESS PT FOR ADMISSION; THE [facility] IS IN NETWORK WITH PT'S INSURANCE. CM FAXED REFERRAL FOR THE [facility] AT [phone]. CM UPDATED PT WHO REPORTS WANTING REHAB PLACEMENT IN [place] CLOSE TO HIS SON POSSIBLE. CM UPDATE DR. COOPER VIA PHONE. DR. COOPER ADVISED THAT PT IS READY TO DISCHARGE TO REHAB WHEN ACCEPTED. PT HAS BEEN DECLINED BY THE [facility]; CM WAITING ADMISSION DETERMINATIONS FROM [facility] AND THE [facility] FOR REHAB PLACEMENT. IF ACCEPTED AT EITHER FACILITY, CM WILL REQUEST CHANGE OF OUTPATIENT DIALYSIS UNIT. Brandin Garcia, CASE MANAGEMENT DCP- Discharge Planning Updated by [id number]: Brandin Garcia on 04/29/19 6:[address] Patient Name: ABBY PHILLIPS Encounter No: [id number] : 1945 Primary Insurance: [facility] MEDICARE SOLUTIONS Anticipated DC Date: 04-21-2019 Planned Disposition: Fdc Facility External Planned Provider:[facility] OR [facility] [place], MEDICARE REHAB BED DCP follow-up note: CM REVIEWED CHART, PT DID PARTICIPATE WITH THERAPY ON 04-27-19 AND 04-28-19. PT HAS DEMONSTRATED ABILITY TO TRANSFER AND SIT IN CHAIR FOR THREE OR MORE HOURS. CM FAXED REFERRAL UPDATE TO [facility] AT [phone]. AND THE [facility] AT [phone]. CM WAITING ADMISSION DETERMINATIONS FROM [facility] AND THE [facility]. IF EITHER FACLITY WILL ACCEPT, CM WILL REQUEST CHANGE OF DIALYSIS UNIT. PT'S INSURANCE ALSO REQUIRES PRIOR AUTHORIZATION FOR REHAB PLACEMENT. Brandin Garcia CASE MANAGEMENT DCP- Discharge Planning Updated by [id number]: Brandin Garcia on 04/28/19 6:[address] Patient Name: ABBY PHILLIPS Encounter No: [id number] : 1945 Primary Insurance: [facility] MEDICARE SOLUTIONS Anticipated DC Date: 04-21-2019 Planned Disposition: Fdc Facility External Planned Provider: [facility] OR [facility] [place], MEDICARE REHAB BED DCP follow-up note: CM REVIEWED CHART, PT DID PARTICIPATE WITH THERAPY ON 04-27-19. PT DID SIT UP IN CHAIR FOR THREE OR MORE HOURS. CM FAXED REFERRAL UPDATE TO [facility] AT [phone]. AND THE [facility] AT [phone]. CM WAITING ADMISSION DETERMINATIONS FROM [facility] AND THE [facility]. IF EITHER FACLITY WILL ACCEPT, CM WILL REQUEST CHANGE OF DIALYSIS UNIT. PT'S INSURANCE ALSO REQUIRES PRIOR AUTHORIZATION FOR REHAB PLACEMENT. Brandin Garcia CASE MANAGEMENT DCP- Discharge Planning Updated by [id number]: Brandin Garcia on 04/27/19 11:[address] Patient Name: ABBY PHILLIPS Encounter No: [id number] : 1945 Primary Insurance: [facility] MEDICARE SOLUTIONS Anticipated DC Date: 04-21-2019 Planned Disposition: Fdc Facility External Planned Provider: [facility] OR [facility] [place], MEDICARE REHAB BED DCP follow-up note: CM REVIEWED CHART, PT DID NOT PARTICIPATE WITH THERAPY ON 04-26-19. CM MET WITH PT IN ROOM TO DISCUSS DISCHARGE PLANNING AND NEEDS. PT DOES NOT WANT SENIOR CARE CARE OR HOSPICE. PT INSISTS THAT HE WANTS REHAB SERVICES. CM EXPLAINED THAT PT HAS TO PARTICIPATE FULLY WITH THERAPY EACH TIME OFFERED INSURANCE WILL NOT PAY FOR REHAB SERVICES WITHOUT PARTICIPATION WITH OFFERED THERAPY. PT REPORTS UNDERSTANDING. PT PROMISES TO PARTICIPATE WITH THERAPY SERVICES AND UNDERSTANDS THAT HE MUST SIT UP IN CHAIR FOR THREE OR MORE HOURS TO SHOW HE CAN GO TO OUTPATIENT DIALYSIS. CM RECEIVED CALL FROM MATILDA OF THE [facility] WHO WILL FOLLOW, BUT WILL ONLY CONSIDER IF PT IS PARTICIPATING WITH THERAPY. CM TO FAX REFERRAL UPDATE [facility] AT [phone]. AND [facility] AT [phone], ONCE NEW THERAPY NOTES ARE DOCUMENTED ON 04-27. CM WAITING ADMISSION DETERMINATIONS FROM [facility] AND THE [facility]. IF EITHER FACLITY WILL ACCEPT, CM WILL REQUEST CHANGE OF DIALYSIS UNIT. PT'S INSURANCE ALSO REQUIRES PRIOR AUTHORIZATION FOR REHAB PLACEMENT. Brandin Garcia, CASE MANAGEMENT DCP- Discharge Planning Updated by [id number]: Brandin Garcia on 04/26/19 8:[address] Patient Name: ABBY PHILLIPS Encounter No: [id number] : 1945 Primary Insurance: [facility] MEDICARE SOLUTIONS Anticipated DC Date: 04-21-2019 Planned Disposition: Fdc Facility External Planned Provider:[facility] OR [facility] [place], MEDICARE REHAB BED DCP follow-up note: CM FAXED REFERRALUPDATE TO [facility] AT [phone]. CM FAXED REFERRAL UDPATE FOR THE [facility] TO PRASHANTH AT [phone]. CM TO DISCUSS WITH REHAB TODAY THAT PT NEEDS TO HAVE DEMONSTRATED ABILITY TO SIT FOR THREE OR MORE HOURS IN CHAIR FOR OUTPATIENT DIALYSIS. CM WAITING ADMISSION DETERMINATIONS FROM [facility] AND [facility]. Brandin Garcia CASE MANAGEMENT DCP- Discharge Planning Updated by [id number]: Brandin Garcia on 04/25/19 1:[address] Patient Name: ABBY PHILLIPS Encounter No: [id number] : 1945 Primary Insurance: [facility] MEDICARE SOLUTIONS Anticipated DC Date: 04-21-2019 Planned Disposition: Fdc Facility External Planned Provider: [facility] OR [facility] [place], MEDICARE REHAB BED DCP follow-up note: CM RECEIVED CALL FROM CHARLEY PHILLIPS, PT'S SON, WHO ASKED WHAT IS TAKING SO LONG TO GET PT INTO REHAB IN [place]. CM EXPLAINED PLACEMENT PROCESS, INSURANCE APPROVAL TIME FRAME AND ALSO THE PROCESS OF HAVING TO GET ACCEPTING DIALYSIS UNIT IF CM CAN GET FACILITY TO ACCEPT PT. CHARLEY REPORTS UNDERSTANDING. CM CALLED [facility], , SPOKE TO SYD WHO INFORMED CM THAT SHE DID NOT GET THE REFERRAL. CM CONFIRMED FAX NUMBER, REVIEWED AND FOUND FAX CONFIRMATION FROM THURSDAY. CM FAXED REFERRAL AND UPDATE TO [facility] AT [phone]. CM SPOKE PRASHANTH OF THE [facility], , [facility] AND GET UPDATE SHE HAS NOT "HEARD A WORD". CM FAXED REFERRAL UDPATE FOR THE [facility] TO PRASHANTH AT [phone]. CM WAITING ADMISSION DETERMINATIONS FROM [facility] AND [facility]. Brandin Garcia, CASE MANAGEMENT DCP- Discharge Planning Updated by [id number]: Brandin Garcia on 04/22/19 10:[address] Patient Name: ABBY PHILLIPS Encounter No: [id number] : 1945 Primary Insurance: [facility] MEDICARE SOLUTIONS Anticipated DC Date: 04-21-2019 Planned Disposition: Fdc Facility External Planned Provider: [facility] OR [facility] IN [place], MEDICARE REHAB BED DCP follow-up note: CM SPOKE TO PT IN ROOM REGARDING DISCHARGE PLANNING. PT WILL GO TO REHAB IN [place] SO HE WILL BE CLOSE TO HIS SON. PT ASKED CM TO HURRY UP HE IS TIRED OF BEING IN THE HOSPITAL. CM EXPLAINED TO PT THAT IF HE WOULD HAVE DECIDED SOONER, CM WOULD HAVE ALREADY BEEN WORKING ON REHAB PLACEMENT. PT SIGNED CONSENT FOR [facility] SUGGESTED BY HIS SON AND FOR ANY CARE HOME REHAB IN [place]. CM EXPLAINED TO PT THAT HIS INSURANCE MAY TAKE SEVERAL DAYS TO APPROVE OR DECLINE REHAB SERVICES AND THAT CM WILL HAVE TO FIND A FACILITY THAT WILL TRANSPORT TO DIALYSIS AND IF ALL OF THAT IS DONE, CM WILL HAVE TO REQUEST A NEW DIALYSIS UNIT. PT REPORTS UNDERSTANDING. CM CALLED [facility], , SPOKE TO KAVIN WHO WILL SCREEN FOR ADMISSION. CM FA[facility]ED [facility]ERR[facility] TO [facility] AT [phone]. CM NOTIFIED PRASHANTH OF THE [facility], , OF REFERRAL. CM FAXED REFERRAL FOR THE [facility] TO PRASHANTH AT [phone]. CM WAITING ADMISSION DETERMINATIONS FROM [facility] AND [facility]. Brandin Garcia CASE MANAGEMENT DCP- Discharge Planning Updated by [id number]: Brandin Garcia on 04/21/19 4:[address] Patient Name: ABBY PHILLIPS Encounter No: [id number] : 1945 Primary Insurance: [facility] MEDICARE SOLUTIONS Anticipated DC Date: 04-21-2019 Planned Disposition: Fdc Facility External Planned Provider: [facility] OR OTHER CARE HOME IN [place] DCP follow-up note: CM RECEIVED CALL FROM CHARLEY PHILLIPS, PT'S SON, WHO REPORTS THAT HE HAS TALKED TO PT VIA PHONE AND PT IS NOW AGREEING TO GO TO CARE HOME REHAB IN [place], CLOSE TO HIS SON. CM ATTEMPTED TO SEE PT WHO WAS OUT OF ROOM AT APPROXIMATELY 1345 HOURS. CM WILL SPEAK TO PT SOON POSSIBLE REGARDING CARE HOME REHAB IN [place] AND SEND REFERRALS IF PT WILL SIGN THE CONSENT. SELENA Escobedo DCP- Discharge Planning Updated by [id number]: Brandin Garcia on 04/21/19 11:[address] Patient Name: ABBY PHILLIPS Encounter No: [id number] : 1945 Primary Insurance: [facility] MEDICARE SOLUTIONS Anticipated DC Date: 04-21-2019 Planned Disposition: Left Against Medical Advice DCP follow-up note: CM SPOKE TO BEDSIDE NURSE WHO REPORTS PT'S SISTER, JORGE, CALLED AND STATES SHE WILL NOT BE PICKING PT UP FOR TRANSPORT HOME. CM MET WITH PT IN ROOM TO DISCUSS DISCHARGE PLANNING AND NEEDS. PT REPORTS STILL PLANNING TO LEAVE WHEN HE FINDS A RIDE. CM EXPLAINED THAT PT'S FAMILY MEMBERS ARE CALLING AND INFORMING HOSPITAL STAFF THEY ARE NOT PICKING UP PT. PT STATES HE HAS FRIENDS THAT ARE GOING TO HELP. CM PROVIDED PT WITH MEDICARE WEBSITE RESULTS FOR CARE HOME REHABS WITHIN 50 MILES OF HIS HOME. CM EXPLAINED THAT [facility] WILL NOT ACCEPT PT BACK AND THAT IF PT CHANGES HIS MIND AND DECIDES TO GO TO REHAB, CM WILL NEED PT'S TOP TWO SELECTIONS AND SIGNATURE ON THE CHOICE FORM. IMPORTANT MESSAGE FROM MEDICARE PROVIDED AND EXPLAINED. PT ASKED CM TO CALL ADAM SANCHES, PHARMACIST AT [facility] TO HAVE HER , JOHN SANCHES, CALL PT. CM CALLED AND WAS ADVISED BY ADAM THAT AGUSTIN SPOKE TO PT YESTERDAY AND SHE WILL LET HER KNOW THAT PT WANTS TO TALK TO HIM AGAIN. CM STILL REFUSING CARE HOME FACLITY PLACEMENT. CM WAITING ON PT TO DEVELOP TRANSPORTATION HOME. IF TRANSPORTATION IS VERIFIED, CALL JEANNIE, , WILL HAS AGREED TO ARRANGE PORTABLE OXGYEN TO HOSPITAL FOR PT TO LEAVE HOSPITAL. CM TO CONTINUE TO FOLLOW AND ASSIST NEEDED. [employer]: Brandin Garcia DCP- Discharge Planning Updated by [id number]: Brandin Garcia on 04/21/19 8:[address] Patient Name: ABBY PHILLIPS Encounter No: [id number] : 1945 Primary Insurance: [facility] MEDICARE SOLUTIONS Anticipated DC Date: 04-21-2019 Planned Disposition: Left Against Medical Advice DCP follow-up note: CM SPOKE TO HERIBERTO SANCHES REGARDING PT'S DISCHARGE PLAN. TREATMENT TEAM CONCERNED THAT PT DOES NOT HAVE SAFE DISCHARGE PLAN. CM MET WITH HERIBERTO SANCHES WITH PT IN ROOM. PT INSISTS THAT HE WILL GO HOME, JOHN SANCHES, , WILL PICK HIM UP. PT REPORTS ALEXSANDRA LOPEZ, A FRIEND FROM [place] WILL ASSIST WITH CARING FOR PT IN HOME AND ASSIST WITH GETTING TO AND FROM DIALYSIS. PT REPORTS HE NORMALLY DRIVES HIMSELF TO AND FROM DIALYSIS AND IS ABLE TO TRANSFER HIMSELF TO A WHEELCHAIR, GET TO HIS CAR, GET THE WHEELCHAIR INTO THE TRUCK OF THE CAR AND THEN WALK TO AND GET INTO THE DRIVERS SEAT HOLDING ON TO THE CAR. PT REPORTS HAVING ELECTRIC AND MANUAL WHEELCHAIR AND IS ABLE TO TRANSFER HIMSELF FROM BED TO CHAIR AND CHAIR TO BED. PT DOES NOT KNOW THE NUMBER TO HIS FRIEND ALEXSANDRA, TO VERIFY HE WILL ASSIST AFTER DISCHARGE. PT REPORTS HIS SISTER HANDY LIVES IN HIS HOUSE AND HAS FOR FOUR MONTHS. CM ADVISED THAT FAMILY INFORMED STAFF HERE THAT PT NEEDS NURSING REHAB. PT REPORTS THAT HIS FAMILY IS WANTING TO KEEP HIM AWAY AND IN THE [facility]. HERIBERTO SANCHES ADVISED THAT PT MUST HAVE A SAFE AND VERIFIABLE PLAN TO DISCHARGE HOME. CM ATTEMPTED TO CALL JOHN SANCHES, ; THERE WAS NO ANSWER AND NO MESSAGE MACHINE. CM CALLED [facility], , SPOKE TO ASPHALT PAVING MACHINE OPERATOR RAYNE WHO INFORMED CM THAT THEY CAN DELIVER PORTABLE OXYGEN TO PT'S ROOM FOR DISCHARGE IF NEEDED. HARSHAL SPOKE TO PT IN ROOM, HERIBERTO SANCHES WAS IN ROOM SPEAKING TO PT. PT STATES HE IS LEAVING "AMA". HERIBERTO SANCHES INFORMED PT THAT PT MUST HAVE A PERSON TO VERIFY THEY ARE TRANSPORTING PRIOR TO ANY AMA FORMS BEING PRESENTED. CM ADVISED PT IF HE IS ABLE TO VERIFY TRANSPORATATION BY CM SPEAKING TO THAT PERSON AND THEY AGREE TO MERCHANDISE EXECUTIVE PT, CM WILL ASK JEANNIE TO DELIVER PORTABLE OXYGEN TO ROOM. CM ASKED THAT IF PT CHANGES HIS MIND AND DECIDES TO GO TO CARE HOME REHAB, TO PLEASE NOTIFY CM AND CM WILL BE GLAD TO ASSIST WITH PLACEMENT. PT DECLINED. CM WAITING ON PT TO DEVELOP TRANSPORTATION HOME. IF TRANSPORTATION IS VERIFIED, CALL JEANNIE, , WILL HAS AGREED TO ARRANGE PORTABLE OXGYEN TO HOSPITAL FOR PT TO LEAVE HOSPITAL. CM TO CONTINUE TO FOLLOW AND ASSIST NEEDED. Webbing [employer]: Brandin Garcia DCP- Discharge Planning Updated by [id number]: Brandin Garcia on 04/20/19 1:[address] Patient Name: ABBY PHILLIPS Encounter No: [id number] : 1945 Primary Insurance: [facility] MEDICARE SOLUTIONS Anticipated DC Date: 04-19-2019 Planned Disposition: Home DCP follow-up note: CM MET WITH PT IN ROOM AND ENCOURAGED PT TO GO TO REHAB PRIOR TO DISCHARGE HOME. PT CONTINUES TO REFUSE AND REPORTS HIS SISTER WILL PICK HIM UP FOR DISCHARGE HOME. PT STATES HE MAY NEED OXYGEN FROM [facility] AGAIN TO GO HOME. HARSHAL EXPLAINED THAT IF HIS SISTER IS PICKING HIM UP AND SHE IS STAYING WITH PT IN PT'S HOME, SHE SHOULD BRING OXYGEN WITH HER. PT WILL REQUEST HIS SISTER BRING OXYGEN WITH HER. HARSHAL RECEIVED CALL FROM MIRIAM GORDON, , WHO INFORMED CM THAT PT HAS BEEN CALLING STATING HE IS GOING TO BE DISCHARGED TODAY AND NEEDS A RIDE HOME. JORGE STATES PT NEEDS TO GO BACK TO NURSING FACILITY FOR REHAB AND NOT HOME. HARSHAL EXPLAINED THAT CM CANNOT MAKE PT DO SOMETHING AGAINST PT'S WILL AND THAT IF PT IS NOT DEEMED INCOMPETENT BY A PHYSICIAN OR COURT, PT CAN MAKE BAD DECISIONS FOR HIMSELF. HARSHAL EXPLAINED HOW TO FILE FOR GUARDIANSHIP OF A PERSON AND THAT THIS WOULD HAVE TO BE GRANTED FOR ANYONE TO MAKE PT DO SOMETHING AGAINST HIS WILL. JORGE REPORTS UNDERSTANDING. PT PLANS TO DISCHARGE HOME WITH HIS SISTER, PT REPORTS HIS SISTER WILL PICK HIM UP FOR DISCHARGE HOME. PT DECLINES [facility], CARE HOME OR REHAB PLACEMENT. PATIENT IS NOT APPROPRIATE FOR HOME HEALTH PER [facility]. Webbing [employer]: Brandin Garcia DCP- Discharge Planning Updated by [id number]: Brandin Garcia on 04/19/19 3:[address] Patient Name: ABBY PHILLIPS Admission Status: ER Accout number: [id number] Admission Date: 04-19-2019 : 1945 Admission Diagnosis: Attending: SAMUEL COOPER Current LOS: 1 Anticipated DC Date: 04-19-2019 Planned Disposition: Home Primary Insurance: [facility] MEDICARE SOLUTIONS Discharge Planning Comments: CM MET WITH PT IN ROOM TO DISCUSS DISCHARGE PLANNING AND NEEDS. PT REPORTS LIVING AT HOME DEPENDENTLY WITH HIS SISTER HANDY WHO IS STAYING WITH PT IN PT'S HOME TO CARE FOR PT. . PT HAS [facility] L[employer] AND WHEELCHAIR WELL HOME AND PORTABLE OXYGEN FROM [facility]. PT HAS NO OUTSIDE SERVICES ASSISTING IN THE HOME [facility] DECLINED TO ADMIT HIM AND TOLD HIM HE HAS TO BE DOING BETTER FOR HOME HEALTH SERVICES. CM DISCUSSED AVAILABILITY OF HOME HEALTH, REHAB SERVICES AND MEDICAL EQUIPMENT. PT DECLINED [facility] OR REHAB PLACEMENT. PT DENIES DISCHARGE NEEDS, REPORTS HIS SISTER HANDY WILL PICK HIM UP FOR DISCHARGE HOME. PT REPORTS MISSING DIALYSIS BECAUSE HE WENT ON THURSDAY AND THEY DID NOT HAVE A SLING TO USE ON THE LIFT TO PICK HIM UP AT THE DIALYSIS UNIT. PT STATES HE HAS A SLING AT HOME AND FORGOT ABOUT IT. PT REPORTS HIS SISTER USES THE [employer]ER[employer] LIFT TO GET HIM TO THE WHEELCHAIR AND THEY WILL LEAVE THE SLING UNDER HIM FOR DIALYSIS TO USE FROM NOW ON. CHOICE SIGNED FOR [facility] TO VERIFY WITH THEM THAT THEY WILL NOT SEE PT. CM CALLED [facility], , LEFT MESSAGE ASKING FOR THE NURSE TO CALL CM BACK. PT PLANS TO DISCHARGE HOME WITH HIS SISTER, PT REPORTS HIS SISTER WILL PICK HIM UP FOR DISCHARGE HOME. PT DECLINES [facility], CARE HOME OR REHAB PLACEMENT. We[employer]: Brandin Garcia Appended by Brandin Garcia on 04/19/2019 16:56 CDT: CM RECEIVED CALL FROM JREICA OF [facility] WHO INFORMED CM THAT THEY DID GO FOR THE HOME HEALTH ADMIT AND INFORMED PT AND FAMILY THAT PT NEEDS REHAB AND IS NOT APPROPRIATE FOR HOME HEALTH SERVICES AT THIS TIME. PT PLANS TO DISCHARGE HOME WITH HIS SISTER, PT REPORTS HIS SISTER WILL PICK HIM UP FOR DISCHARGE HOME. PT DECLINES [facility], CARE HOME OR REHAB PLACEMENT. Webbing [employer]: Brandin Garcia DCPIA - Discharge Planning Initial Assessment Updated by [id number]: Brandin Garcia on 04/22/19 11:13 am * Is the patient Alert and Oriented? Yes * How many steps to enter\\exit or inside your home? NONE * PCP DR. ARACELI SIDHU * Pharmacy [facility] * Preadmission Environment Home with Family * ADLs Partial Dependent * Partial ADLs (Assistance needed) Ambulation Bathing Dressing Medication Management Toileting Transfers * Equipment [employer] Lift Oxygen Wheelchair * Other Equipment HOME AND PORTABLE OXYGEN, [facility] * List name and contact numbers for known caregivers / representatives who currently or will assist patient after discharge: HANDY JONES, SISTER [phone] JORGE GORDON, SISTER, CHARLEY PHILLIPS, SON, * Verbal permission to speak to the caregivers and representatives has been obtained from the patient. Yes * Community resources currently utilized None * Please name any agencies selected above. PT HAD INTAKE WITH [employer] FROM [place], ACCORDING TO PT, THEY DECLINED T PROVIDE SERVICES UNTIL HE WAS "DOING BETTER" OUTPATIENT DIALYSIS , TTS, 1000AM, [place]. PT REPORTS HE HAS BEEN DRIVING HIMSELF. * Additional services required to return to the preadmission environment? No * Can the patient safely return to the preadmission environment? Yes * Has this patient been hospitalized within the prior 30 days at any hospital? Yes Coverage Notice Reviewer: [id number] Skylar Augustin Notice Issued Date-Time: 04/19/2019 9:30 Notice Type: Medicare Outpatient Observation Notice Notice Delivered To: Patient Relationship to Patient: Self Staff Climate Scientist Name: Delivery Method: HAND - Hand Delivered Anusha Days: Prior Verbal Notification: Recipient Understood Notice: Yes Recipient Signature: Yes Med Rec Note Co-signed by Attending: Coverage Notice Comment: Reviewer: [id number] Skylar Garcia Notice Issued Date-Time: 04/19/2019 12:15 Notice Type: Patient Choice Letter Notice Delivered To: Patient Relationship to Patient: Staff Climate Scientist Name: Delivery Method: HAND - Hand Delivered Anusha Days: Prior Verbal Notification: Recipient Understood Notice: Yes Recipient Signature: Yes Med Rec Note Co-signed by Attending: Coverage Notice Comment: [employer] Reviewer: [id number] Garcia Notice Issued Date-Time: 04/21/2019 11:45 Notice Type: IM Discharge Notice Notice Delivered To: Patient Relationship to Patient: Staff Climate Scientist Name: Delivery Method: HAND - Hand Delivered Anusha Days: Prior Verbal Notification: Recipient Understood Notice: Yes Recipient Signature: Yes Med Rec Note Co-signed by Attending: Coverage Notice Comment: Reviewer: LIO Garcia Notice Issued Date-Time: 04/22/2019 16:05 Notice Type: Patient Choice Letter Notice Delivered To: Patient Relationship to Patient: Staff Climate Scientist Name: Delivery Method: HAND - Hand Delivered Anusha Days: Prior Verbal Notification: Recipient Understood Notice: Yes Recipient Signature: Yes Med Rec Note Co-signed by Attending: Coverage Notice Comment: [facility]. Reviewer: LIO Garcia Notice Issued Date-Time: 05/02/2019 12:48 Notice Type: IM Discharge Notice Notice Delivered To: Patient Relationship to Patient: Staff Climate Scientist Name: Delivery Method: HAND - Hand Delivered Anusha Days: Prior Verbal Notification: Recipient Understood Notice: Yes Recipient Signature: Yes Med Rec Note Co-signed by Attending: Coverage Notice Comment: Last DP export: 05/03/19 7:26 Patient Name: ABBY PHILLIPS Page [phone] at 0846 All edits/amendments must be made on the electronic document DICTATION DATE: 05/04/19844 FINAL CLEANER: APRIL 05/04/19844 RPT#: [id number] DC DATE: STATUS: ADM IN [facility] [address] [place] [address] END OF REPORT
[2019-05-04 10:08] LABS: APPEARANCE TURBID (CLEAR); BACTERIA FEW /hpf (NEGATIVE); BILIRUBIN NEGATIVE (NEGATIVE); COLOR YELLOW (YELLOW); EPITHELIAL CELLS OCC /hpf (0-5); GLUCOSE NEGATIVE (NEGATIVE); KETONE NEGATIVE (NEGATIVE); MUCUS <1+ /lpf (NONE SEEN); NITRITE NEGATIVE (NEGATIVE); PROTEIN 3+ mg/dL (NEGATIVE); RED CELLS - URINE 0-5 /hpf (0-5); UROBILINOGEN NORMAL (NORMAL); WHITE CELLS - URINE >50 /hpf (NEGATIVE)
--- NOTE | 2019-05-04 10:47 | NUR ---
pt taken for ct scan via bed.
--- NOTE | 2019-05-04 11:41 | NUR ---
OT NOTE: STAFF REQUESTING THAT PT GET UP TO CHAIR TODAY. EXPLAINED THAT HE WAS ASSISTED UP TO CHAIR YESTERDAY, BUT WHEN CHECKED ON HIM APPROX 20 MIN LATER, HE WAS SLIDING OUT OF CHAIR. PUT PT BACK TO BED DUE TO SAFETY ISSUES. TODAY, PT WANTING TO SIT UP TO EAT. ASSISTED PT WITH BED MOB AND SUPINE TO SIT WITH MOD ASSIST; SITTING BALANCE WAS POOR; PT WITH ATTAXIC/JERKING MOVEMENTS WHILE SITTING UP ON EOB. PT UNABLE TO SIT UNASSISTED TODAY. MOD ASSIST WITH TRANSFER TO CHAIR; PT UNABLE TO FEED SELF DUE TO JERKING MOVEMENTS AND POOR MOTOR CONTROL. PT ALSO WITH INCREASED COUGHINGH EPISODES WHILE ASSISTING HIM WITH MEAL. DISCUSSED WITH NURSING THE FACT THAT HE IS HAVING MEDICAL CONDITION CHANGES TODAY AND THERAPY DOES NOT FEEL SAFE LEAVING HIM UNATTENDED SITTING UP IN CHAIR. ASSISTED BACK TO BED WITH MOD ASSIST. REPOSTIONED PT AND RAISED HOB TO APPROX 90 DEGREES . EXTENSIVE TIME SPENT WITH PT TODAY. PATRICK GANDHI, OTR/L
--- NOTE | 2019-05-04 12:18 | NUR ---
PT FOUND NO BREATHING AND NO PULSE. CPR STARTED AND RUSS NUGENT CALLED. AT 1224 ONE DOSE OF EPINEPHRINE GIVEN. AT 1228 PT WAS 113 SINUS TACHYCARDIA PER CRDI[facility] MONITOR OFF CRASH CART. AT 1229 PT WAS INTUBATED BY ER DOCTOR WITH SIZE 7.5. PT TRANSFERRED TO ICU.
--- NOTE | 2019-05-04 12:31 | NUR ---
CODE IN PROGRESS ON PATIENT. CALL PLACED TO CHARLEY PHILLIPS. HE HAS CONFIRMED THAT HE WANTS EVERYTHING DONE FOR HIS FATHER AND HE IS ON HIS WAY UP HERE NOW.
--- NOTE | 2019-05-04 12:45 | NUR ---
PT ARRIVED ON UNIT VSS BP 151/87 HR 82 O2 SAT 98% VIA VENT. DR BYRNES AT BEDSIDE GIVEN UDPATE. NEW ORDERS REICEVED
--- NOTE | 2019-05-04 13:05 | NUR ---
SON CALLED GIVEN UDPATE.
--- NOTE | 2019-05-04 14:05 | NUR ---
PT HAD A LARGE FORMED BM IN THE BSC. IT WAS CLEANED FOR THE PT AND A DIET SPRITE WAS GIVEN PER PT'S REQUEST. CALL LIGHT IN REACH. WILL CONT POC.
--- NOTE | 2019-05-04 14:20 | NUR ---
SON AT BEDSIDE GIVEN UPDATE
--- NOTE | 2019-05-04 16:46 | NUR ---
OT NOTE: PT NEEDS TO BE UP IN CHAIR ACCORDING TO STAFF. PT COMPLETED SUPINE TO SIT WITH MOD A. PT COMPLETED EOB SITTING WITH MOD A. PT COMPLETED BED TO CHAIR TSF WITH MOD A. PT UNABLE TO MAINTAIN TRUNK CONTROL. PT REQUIRED MAX A FOR ADL TASKS . OLIVAS NOTIFIED NURSING STAFF THAT PT IS EXHIBITING DECREASED TRUNK CONTROL AND PT REQUIRED MAX A WITH ADLS. ASSIGNED NURSE CHECKED PATIENT THERAPY WAS IN ROOM. OLIVAS/OTR SPOKE WITH ADDITIONAL NURSING STAFF CONCERNING PT. BEFORE LEAVING ROOM, OT STAFF CONSULTED WITH ASSIGNED NURSE AND DECIDED TO PUT PT BACK IN BED UPRIGHT. THANK YOU, DEISY COTTON
--- NOTE | 2019-05-04 19:00 | NUR ---
PT RESTING IN BED. REPORT RECEIVED FROM DAY SHIFT NURSE. VSS. INTUBATED. WILL CONTINUE TO MONITOR
--- NOTE | 2019-05-04 20:58 | NUR ---
PT RESTING IN BED. NIGHTLY MEDS GIVEN. PT TOLERATED WELL. FAMILY AT BEDSIDE AND GIVEN UPDATE. VSS. WILL CONTINUE TO MONITOR
--- NOTE | 2019-05-04 23:00 | NUR ---
PT RESTING IN BED. REASSESSMENT COMPLETED. VSS. NO SIGNS OF DISTRESS NOTED AT THIS TIME. WILL CONTINUE TO MONITOR
[2019-05-05] VITALS (25 sets, daily range): BP systolic 111–193; BP diastolic 59–109
--- NOTE | 2019-05-05 01:00 | NUR ---
PT RESTING IN BED. VSS. NO SIGNS OF DISTRESS NOTED. WILL CONTINUE TO MONITOR.
[2019-05-05 02:57] LABS: BASOPHILS 0.1 % (0-2); EOSINOPHILS 0.5 % (0-7); HEMATOCRIT 28.1 % (42.0-54.0); HEMOGLOBIN 8.4 g/dL (13.5-17.5); IMMATURE GRANULOCYTES 0.5 % (0-5); LYMPHOCYTES 14.2 % (15-50); MCH 26.7 pg (26.0-34.0); MCHC 29.9 g/dL (31.0-37.0); MCV 89.2 fL (80.0-100.0); MEAN PLATELET VOLUME 9.5 fL (7.4-10.4); MONOCYTES 9.1 % (2-11); NEUTROPHILS 75.6 % (40-80); PLATELET COUNT 336 10x3/uL (130-400); RBC 3.15 10x6/uL (4.20-6.10); RDW 21.7 % (11.5-14.5); WBC 19.4 10x3/uL (4.8-10.8)
--- NOTE | 2019-05-05 03:00 | NUR ---
PT RESTING IN BED. VSS. NO COMPLAINTS NOTED AT THIS TIME. REASSESSMENT COMPLETED. WILL CONTINUE TO MONITOR
[2019-05-05 03:24] LABS: CALCIUM 8.5 mg/dL (8.5-10.1); CARBON DIOXIDE 28.2 mmol/L (21.0-32.0); CREATININE - SERUM 4.1 mg/dL (0.6-1.3); POTASSIUM - SERUM 4.2 mmol/L (3.5-5.1)
[2019-05-05 03:26] LABS: TROPONIN-I 0.071 ng/mL (0.000-0.060)
--- NOTE | 2019-05-05 05:00 | NUR ---
PT RESTING IN BED. GIVEN A CHG BATH. PT TOLERATED WELL. VSS. WILL CONTINUE TO MONITOR
--- NOTE | 2019-05-05 08:00 | NUR ---
REPORT RECEVIED FROM THE OFF GOING SEE ASSESSMENT IN THE PTS FLOW SHEET. PT SEDATED AND ON THE VENT. PT REPOSISTIONED. CALL LIGHT IN REACH. WILL CONT POC.
--- NOTE | 2019-05-05 09:27 | NUR ---
Nutrition follow-up: Pt now in ICU, intubated, sedated s/p code blue NPO Labs reviewed Wt: 152# If pt remains intubated, recommend starting Nepro @ 20 ml/hr with gradual increase to goal rate of 50 ml/hr with 100 ml H2O flush Q [address] RDN following.
--- NOTE | 2019-05-05 09:51 | NUR ---
SANA TURNED OFF PER DR RAE.
--- NOTE | 2019-05-05 10:21 | NUR ---
PT AWAKE AND FOLLOWING COMMANDS. PT REPOSITIONED AND HEEL GAURD PLACED UNDER THE PTS FEET.
--- NOTE | 2019-05-05 10:58 | NUR ---
SPOKE WITH DR RAE. CHANGE VENT SETTINGS TO PRESSURE SUPPORT 10/5 30%. RT NOTIFIED. PT HOB ELEVATED TO 90 DEGREES. PT AWAKE AND FOLLOWING COMMANDS. WILL CONT MONITOR.
--- NOTE | 2019-05-05 13:32 | NUR ---
DR RAE AT THE PTS BEDSIDE. OK TO EXTUBATE. PT EXTUBATED PER RT AND PLACE ON 3L VIA NC. PT GAVE OK TO UPDATE ON THE PTS SON VIA TELEPHONE.
--- NOTE | 2019-05-05 15:23 | NUR ---
PT DOING WELL. VSS. CALL LIGHT IN REACH. WILL CONT POC.
--- NOTE | 2019-05-05 16:35 | OP ---
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 OPERATION PERFORMED: Open ligation of AV fistula. SURGEON: Verónica Rae MD ANESTHESIA: Sedation and monitoring per SECURITY SOFTWARE ENGINEER and local 1% lidocaine and 0.25% Marcaine without epinephrine. PREOPERATIVE NOTE: Mr. Phillips is a 73-year-old severely debilitated white male patient with a host of medical problems including recent [id number]-ld-[id number] renal injury and having to start on dialysis. I had created a brachiocephalic AV fistula in this gentleman last year and he had then been lost to me to follow up in the clinic. I was consulted by Dr. Toure just yesterday to see the patient. He has severe pain in the hand and developing gangrene of the first and second fingers and is agreeable to having the fistula ligated. I have explained that he potentially could have a new AV graft implanted in the future if his health improves. Otherwise, he will remain catheter dependent. DESCRIPTION OF PROCEDURE: Under sedation and monitoring per SECURITY SOFTWARE ENGINEER, the patient was prepped and draped in a sterile manner. I injected 1% lidocaine into the skin and subcutaneous tissues over and surrounding the cephalic vein just above the antecubital space. I made a transverse incision and with blunt and sharp dissection exposed the cephalic vein and encircled it and then ligated it with two 2-0 silk ties. The wound was then infiltrated with 0.25% Marcaine and closed with interrupted inverted 3-0 Vicryl and running intracuticular 4-0 Monocryl and Dermabond glue. The wound was dressed with Maxorb Ag, Tegaderm, and Cavilon skin prep. The patient was taken back to the floor med 2 in stable condition. He will resume his previous medications and diet. There was no blood loss during the procedure. Sponges, instruments, needles, etc. were accounted for. No specimen was submitted for histopathology. No drain was used. TRANSINT:[id number] Voice Confirmation ID: [id number] DOCUMENT ID: [id number] OPERATIVE REPORT [id number] ABBY PHILLIPS JAMES MD at 1635 CC: DARREL TOURE DO [id number] DICTATION DATE: 05/03/19 1457 OSS ARCHITECT: 05/03/19 192 ADM IN [place] [id number] [place] [id number]
--- NOTE | 2019-05-05 17:06 | NUR ---
DIALYSIS NURSE AT THE PTS BEDSIDE.
[2019-05-06] VITALS (14 sets, daily range): BP systolic 107–189; BP diastolic 58–100
--- NOTE | 2019-05-06 07:00 | NUR ---
REPORT RECEIVED FROM THE OFF GOING RN. SEE ASSESSMENT IN THE PTS FLOW SHEET. PT LYING IN BED. PT REPOSITIONED FOR COMFORT AND SKIN INTEGRITY. PT BREATHING NORMAL AND UNLABORED. PT ABLE TO VOICE HIS NEEDS. INSTRUCTED TO USE HIS IS 10X'S/H. PT PULLS ABOUT 750. LUNGS SOUNDS IMPROVED SINCE YESTERDAY. RIGHT SUB CLAVIAN HEMOSPLIT NOTED C/D/I. PEG TUBE NOTED. PATENCY CHECKED VIA A&A WITH NO RESIUDAL. EXPLAINED TO THE PT THAT HE IS NPO UNTIL ST EVALS HIM FOR SWALLOWING. HE AGREED TO THIS. SEE ASSESSMENT FOR SKIN ASSESSMENT. VSS. CALL LIGHT IN REACH. WILL CONT POC.
--- NOTE | 2019-05-06 08:25 | NUR ---
PT WANTING SOMETHING TO EAT. EXPLAINED TO THE PT THAT HE IS STRICT NPO UNTIL HE HAS A SWALLOW EVALUATION.
--- NOTE | 2019-05-06 09:58 | NUR ---
DR RAE AT THE PTS BEDSIDE. OK TO TRANSFER OUT OF THE UNIT.
--- NOTE | 2019-05-06 09:59 | NUR ---
20 GAUGE STATED X1 ATTEMPTED IN THE RIGHT AC. NO S/SX OF INFILTRATION NOTED. WILL CONT POC.
--- NOTE | 2019-05-06 11:09 | NUR ---
DRESSING TO FINGERS CHANGED. FRIST DIGIT, THE ENTIRE FINGER TIP ESCHAR, SECOND DIGIT, PARTIAL TIP ESCHAR AND THE 4TH DIGIT 1MM X 4MM. PEG TUBE SITE DRESSING CHANGED. BUTTOCKS DRESSING CHANGED. 2 STAGE 2 ULCERS NOTED. ONE MIDLINE ABD ABOUT 2CM X 0.3 CM. AND THE OTHER 2.5 CM AND CIRCULAR. REDDNESS AROUND THE ENTIRE BUTTOCKS. BIT HEART SHAPE DRESSING APPLIED. PT REPOSITIONED. WILL CONT POC.
--- NOTE | 2019-05-06 11:25 | NUR ---
ST AT THE PTS BEDSIDE. OK FOR PUREE AND NECTAR THICK LIQUIDS. HOLD IF ASPRIATION NOTED AND USE PEG TUBE.
--- NOTE | 2019-05-06 11:55 | NUR ---
DR BYRNES AT THE PTS BEDSIDE. OK TO TRANSFER TO FLOOR.
--- NOTE | 2019-05-06 12:30 | NUR ---
PT EATING LUNCH. ASPIRATION PRECAUTIONS IN PLACE HOB ELEVATED 90. NO DYSPAGIA NOTED. WILL CONT POC.
--- NOTE | 2019-05-06 13:27 | NUR ---
REPORT CALLED AND GIVEN TO MED 2 NURSE. PT VSS. TRANSFERED TO ROOM 2136 IN A STABLE CONDITION.
--- NOTE | 2019-05-06 13:45 | NUR ---
RECEIVED FROM ICU, HE IS AWAKE AND ALERT ORIENT TO DAY BUT KNEW SELF AND TIME. VOICE IS HOARSE, SHORTNESS OF BREATH WHILE TALKING OR MOVING. RESP WITH SOME LABOR NOTED. BBS WITH WHEEZES IN UPPER LOBES. PEG TUBE SITE TO ABDOMEN CLAMPED WITH DRESSING OVER IT. O2 ON AT 2 L/M PER N/C. HOB IS UP. SUCTION SET UP AT BEDSIDE. HE IS REQUESTING MILK AND CRACKERS, I EXPLAINED TO HIM THAT HE IS ON PUREE WITH NECTAR THICK LIQUIDS WHICH HE AGREES TO. SKIN AUDIT DONE WITH TREATMENT NURSE IN ROOM WITH MULTIPLE SKIN ISSUES NOTED. BED IS LOCKED AND IN LOWEST POSITION. ORIENT TO USE OF CL. HE DENIES ANY CURRENT PAIN. HEEL PROTECTORS ON AND FLOATED. SALINE LOCK INTACT TO RIGHT A/C. RIGHT CHEST HEMOSPLIT INTACT
--- NOTE | 2019-05-06 13:48 | NUR ---
THE FOLLOWING REPRESENTS A LIST OF SKIN ISSUES: LEFT INDEX FINGER AND THUMB : TIPS ARE BLACK WITH ESCHAR LEFT HEEL: 2CM X 4CM DRIED BLOOD BLISTER LEFT #2 TOE: 0.5CM X 0.5CM X SCAB LEFT KNEE: SCABS X 2 LEFT CALF: SCABS RIGHT INDEX FINGER: SCAB RIGHT #2 TOE: 0.3CM X 0.3CM X SCAB RIGHT ANKLE: 3CM X 2CM UNSTAGEABLE PRESSURE INJURY SACRUM: STAGE 2 PRESSURE INJURY MEASURING 2CM X 0.5CM X 0.3CM LEFT BUTTOCK: STAGE 2 PRESSURE INJURY MEASURING 2CM X 2CM X 0.3CM SACRUM AND BUTTOCK WOUNDS ARE COVERED WITH MEPILEX SACRAL DRESSING. RECOMMEND CONTINUING WITH THIS DRESSING AND CHANGING IT EVERY 3 DAYS. RECOMMEND MEPILEX DRESSING TO RIGHT ANKLE ALSO: BRIDGE HEELS OFF BED/PILLOWS, TURN/REPOSITION q 2 HOURS, CALMOSEPTINE CREAM FOR REDNESS RELATED TO INCONTINENCE. WOUND CARE CONTINUES TO MONITOR.
--- NOTE | 2019-05-06 14:15 | NUR ---
NECTER THICK MILK AND PUREE CRACKERS GIVEN TO HIM PER REQUEST WITH HOB UP. ABLE TO SWALLOW WITHOUT DIFF. SELF FED AND JAMEE WELL
--- NOTE | 2019-05-06 16:05 | NUR ---
TELEMETRY IS ON HR 78 SR. FAMILY AT BEDSIDE FOR VISIT
--- NOTE | 2019-05-06 19:18 | NUR ---
BEDSIDE REPORT RECEIVED FROM DAY SHIFT, PT CARE ASSUMED. WROTE NAME ON BOARD. PT LYING IN BED WATCHING TV, AAOX4. DENIES ANY NEEDS AT THIS TIME. BED IN LOWEST POSITION, SR X3, CALL LIGHT WITHIN REACH. WILL CONTINUE TO MONITOR.
--- NOTE | 2019-05-06 21:10 | NUR ---
FSBS 305. PM MEDS ADMINISTERED, PER ORDER. OFFERED PT SNACK, PT ACCEPTED. DENIES ANY OTHER NEEDS AT THIS TIME. BED IN LOWEST POSITION, SR X2, CALL LIGHT WITHIN REACH. WILL CONTINUE TO MONITOR.
[2019-05-07] VITALS: BP 171/72
[2019-05-07 09:20] VITALS: BP 172/53
[2019-05-07 12:00] VITALS: BP 131/52
--- NOTE | 2019-05-07 12:57 | NUR ---
PATIENT IS STILL WAITING PATIENTLY TO GO TO DIALYSIS.
[2019-05-07 13:00] LABS: BASOPHILS 0.1 % (0-2); EOSINOPHILS 2.5 % (0-7); HEMATOCRIT 31.1 % (42.0-54.0); IMMATURE GRANULOCYTES 0.7 % (0-5); LYMPHOCYTES 14.3 % (15-50); MCH 26.1 pg (26.0-34.0); MCHC 28.9 g/dL (31.0-37.0); MCV 90.1 fL (80.0-100.0); MEAN PLATELET VOLUME 9.8 fL (7.4-10.4); MONOCYTES 12.3 % (2-11); NEUTROPHILS 70.1 % (40-80); PLATELET COUNT 401 10x3/uL (130-400); RBC 3.45 10x6/uL (4.20-6.10); RDW 21.9 % (11.5-14.5); WBC 13.6 10x3/uL (4.8-10.8)
[2019-05-07 13:11] LABS: ANION GAP 13.7 mmol/L (8-16); CALCIUM 8.4 mg/dL (8.5-10.1); CARBON DIOXIDE 27.9 mmol/L (21.0-32.0); CREATININE - SERUM 4.6 mg/dL (0.6-1.3); POTASSIUM - SERUM 4.6 mmol/L (3.5-5.1)
--- NOTE | 2019-05-07 15:23 | NUR ---
PATIENT TAKEN OFF DIALYSIS TREATMENT EARLY PER PATIENT, DUE TO "SEVERE CONSTIPATION." PATIENT IS ALERT AND ORIENTED, EDUCATED PATIENT, OFFERED OTHER OPTIONS OF HAVING MEDICATION ADMINISTERED AND CONTINUE RUNNING, PATIENT STILL WANTS OFF TREATMENT. TREATMENT TERMINATED, BLOOD RETURNED, UNABLE TO ADMINISTER IV GENTAMICIN THAT WAS SENT TO BE GIVEN ON TREATMENT.
--- NOTE | 2019-05-07 15:47 | NUR ---
PATIENT IS IN DIALYSIS NOW.
[2019-05-07 20:00] VITALS: BP 219/83
--- NOTE | 2019-05-07 22:18 | NUR ---
INITIAL ROUNDS COMPLETED AT 1915 HRS. PT HAS C/O OF CONSTIPATION. PT INSISTING ON HAVING AN ENEMA. INFORMED PT THAT DAY NURSE GAVE HIM SOME MEDICINE FOR CONSTIPATION AT 1800 HRS. PT THEN BECAME BELLIGERENT DEMANDING AN ENEMA. INFORMED PT NEED ORDER FROM MD AND WILL CALL AFTER PT ASSESSMENTS COMPLETED. ASSESSMENT COMPLETED AT 1940 HRS. SR PER CM HR 78. 02 2LNC. ALERT AND ORIENTED TO PERSON, PLACE AND TIME. THURSTON. LUNGS DIMINISHED IN BASES BILAT. ABD TENDER WITH ACTIVE BS NOED. TIPS OF THUMB AND INDEX FINGER OF L HAND WITH ESCHAR NOTED. MEPILEX TO BUTTOCKS CLEAN, DRY AND INTACT. STAGE 2 TO L BUTTOCKS APPROX 2CM IN DIAMETER. BRUISES TO BILAT ARMS. DRESSING TO OUTER R FOOT CLEAN,DRY AND INTACT. R CHEST HEMOSPLIT CLEAN, DRY AND INTACT. IV TO RAC PATENT. IMMATURE FISTULA TO L ARM WITH BRUIT AND THRILL. HEEL PROTECTORS ON. PEG TUBE CLAMPED. RENALSERVICES PAGED AT 2010 HRS. RETURN PAGEAT 2030 HRS. INFORMED OF PT'S C/O SEVERE CONSTIPATION. NEW ORDERS RECEIVED AND NOTED. 1999 VSS STABEL EXCPET BP 219/83. PM MEDS GIVEN. PM FSBS 302. 8 UNITS HUMALOG GIVEN SUB-Q TO UPPER R ARM. PM MSNACK SERVED. FLEETS ENEMA GIEN AT 2150 HRS WITH MODERATE AMOUNT OF SOFT, BROWN STOOL RETURN. PT CLEANED AND BED LINENS CHANGED. PT STATES FEELS A LITTLE BIT BETTER. PT CURRENTLY WATCHNG TV. SR UP X2, CALL LIGHT WITHIN REACH.
--- NOTE | 2019-05-07 23:46 | NUR ---
PT WATCHING TV. NO DISTRESS NOTED. SR UP X2, CALL LIGHT WITHIN REACH.
[2019-05-08] VITALS: BP 149/59
--- NOTE | 2019-05-08 01:48 | NUR ---
PT HAS C/O SOB. O2 SAT 98% ON 2LNC. LIPS PINK. HR 78. PT TALKING WITHOUT DIFFICULTY. NAILBEDS PINK WITH BRISK CAP REFILL. RT ON FLOOR TO EVAL. PT PULLED UP IN BED. EMOTIONAL SUPPORT GIVEN. CALL LIGHT WITHIN REACH.
--- NOTE | 2019-05-08 02:08 | NUR ---
PT RESTING WITH EYES CLOSED. RESP EVEN AND REGULAR. NO DISTRESS NOTED. CALL LIGHT WITHIN REACH.
[2019-05-08 04:00] VITALS: BP 150/52
--- NOTE | 2019-05-08 04:15 | NUR ---
PT RESTING WITH EYES CLOSED. RESP EVEN AND REGULAR. SR UP X2, CALL LIGHT WITHIN REACH.
[2019-05-08 04:36] LABS: BASOPHILS 0.2 % (0-2); EOSINOPHILS 3.1 % (0-7); HEMATOCRIT 29.6 % (42.0-54.0); HEMOGLOBIN 8.7 g/dL (13.5-17.5); IMMATURE GRANULOCYTES 0.6 % (0-5); LYMPHOCYTES 20.5 % (15-50); MCH 26.2 pg (26.0-34.0); MCHC 29.4 g/dL (31.0-37.0); MCV 89.2 fL (80.0-100.0); MEAN PLATELET VOLUME 9.6 fL (7.4-10.4); MONOCYTES 14.9 % (2-11); NEUTROPHILS 60.7 % (40-80); PLATELET COUNT 383 10x3/uL (130-400); RBC 3.32 10x6/uL (4.20-6.10); RDW 21.3 % (11.5-14.5); WBC 13.1 10x3/uL (4.8-10.8)
[2019-05-08 04:44] LABS: ANION GAP 8.9 mmol/L (8-16); CALCIUM 8.3 mg/dL (8.5-10.1); CARBON DIOXIDE 28.8 mmol/L (21.0-32.0); CREATININE - SERUM 4.6 mg/dL (0.6-1.3); POTASSIUM - SERUM 4.7 mmol/L (3.5-5.1)
--- NOTE | 2019-05-08 06:39 | NUR ---
PT REFUSED AM INSULIN. OPENS EYES TO VERBAL STIMULI, FOLLOWS COMMANDS AND SWALLOWED AM MEDS THEN QUICKLY FELL BACK TO SLEEP. NEEDSMET; WILL CONTINUE TO MONITOR.
--- NOTE | 2019-05-08 07:47 | NUR ---
PATIENT IS RESTING ON HIS BACK IN BED AT THIS TIME. FAMILY AT [facility]. HE REQUEST CORN FLAKES. WILL PUT ORDER IN NOW. HE HAD A BM LAST NIGHT. HE CAN REQUEST THE BEDPAN.
[2019-05-08 07:58] VITALS: BP 165/63
--- NOTE | 2019-05-08 09:59 | NUR ---
BED CHANGED, PATIENT CLEANED UP AND REAJUSTED IN BED.
[2019-05-08 12:41] VITALS: BP 158/64
[2019-05-08 17:04] VITALS: BP 156/71
--- NOTE | 2019-05-08 18:04 | NUR ---
CLEANED PATIENT BUTTOCK AND APPLIED NEW DRESSING. REARRANGED BEDDING AND LAID CLEAN PADS DOWN. PATIENT IS ON RIGHT SIDE IN BED WITH PILLOWS FOR COMFORT. NEW DRESSING APPLIED AROUND HIS PEG TUBE.
--- NOTE | 2019-05-08 18:06 | NUR ---
PATIENT HAD REQUESTED CORN FLAKES, HOWEVER HE LET THEM SOAK IN THE MILK SO THEY WERE VERY SOFT BEFORE HE ATE THEM. TOLERATED WELL.
--- NOTE | 2019-05-08 18:40 | NUR ---
PATIENT JUST HAD A BM, REMOVED FRESH DRESSING.
--- NOTE | 2019-05-08 19:35 | NUR ---
INITIAL ROUNDS COMPLETED. PT HAD LARGE BM VIA BEDPAN. PT CLEANED AND REPOSITIONED IN BED FOR COMFORT. CALL LIGHT WITHIN REACH.
[2019-05-08 20:00] VITALS: BP 184/74
--- NOTE | 2019-05-08 22:52 | NUR ---
ASSESSMENT COMPLETED AT 1950 HRS. SR PER CM HR 81. ALERT AND ORIENTED TO PERSON, PLACE AND TIME. THURSTON. VOICE HOARSE. O2 2LHF O2. LUNGS DIMINISHED IN BASES BILAT. PT HAS A PRODUCTIVE COUGH BROWN IN COLOR. SCATTERED RHONCHI TO UPPER LOBES WHICH CLEARS WITH COUGH. ABD SOFT WITH ACTIVE BS NOTED. TIPS OF L THUMB ANS INDEX FINGER BLACK. DUODERM TO COCCYX CLEAN AND DRY. STAGE 2 TO L BUTTOCKS APPROX 2CM IN DIAMETER. DRESSING TO R ANKLE CLEAN, DRY AND INTACT. BILAT HEEL PROTECTORS IN USE. PM FSBS 324. 8 UNITS HUMALOG GIVEN SUB-Q TO UPPER R ARM. IMMATURE FITULAR TO L ARM WITH GOOD BRUIT AND THRILL. R CHEST HEMOSPLIT CLEAN, DRY AND INTACT. PM MEDS GIVEN. HIBICLENS BATH DONE, BED LINENS CHANGED. PT CURRENTLY WATCHING TV. SR UP X2,CALL LIGHT WITHIN REACH AND BED ALARM ON.
[2019-05-09] VITALS: BP 154/66
--- NOTE | 2019-05-09 00:07 | NUR ---
PT STATES HAS SOB. O2 SAT 97% ON 2L. REPOSITIONED IN BED FOR COMFORT. RT TX IN PROGRESS.
--- NOTE | 2019-05-09 01:53 | NUR ---
PT RESTING WITH EYES CLOSED. NO DISTRESS NOTED. SR UP X2, CALL LIGHT WITHIN REACH.
[2019-05-09 04:00] VITALS: BP 191/76
--- NOTE | 2019-05-09 04:36 | NUR ---
PT RESTING WITH EYES CLOSED. RESP EVEN AND REGULAR. SR UP X2,CALL LIGHT WITHIN REACH.
[2019-05-09 05:49] LABS: BASOPHILS 0.2 % (0-2); EOSINOPHILS 3.4 % (0-7); HEMATOCRIT 28.5 % (42.0-54.0); HEMOGLOBIN 8.6 g/dL (13.5-17.5); LYMPHOCYTES 24.4 % (15-50); MCHC 30.2 g/dL (31.0-37.0); MCV 89.3 fL (80.0-100.0); MEAN PLATELET VOLUME 9.8 fL (7.4-10.4); MONOCYTES 13.9 % (2-11); NEUTROPHILS 57.1 % (40-80); PLATELET COUNT 362 10x3/uL (130-400); RBC 3.19 10x6/uL (4.20-6.10); RDW 21.4 % (11.5-14.5); WBC 12.4 10x3/uL (4.8-10.8)
[2019-05-09 06:11] LABS: ANION GAP 16.6 mmol/L (8-16); CALCIUM 8.6 mg/dL (8.5-10.1); CREATININE - SERUM 5.2 mg/dL (0.6-1.3)
[2019-05-09 06:18] LABS: POTASSIUM - SERUM 5.6 mmol/L (3.5-5.1)
--- NOTE | 2019-05-09 07:33 | NUR ---
PATIENT IS SITITNG UP IN BED. HE IS REQUESTING CORNFLAKES. HE DENIES ANY OTHER NEEDS AT THIS TIME. HE IS COUGHING UP AND SPITTING OUT BROWN MUCOUS. HIS VOICE IS HOARSE. O2 IN PLACE. IV SALINE LOCKED.
--- NOTE | 2019-05-09 07:54 | NUR ---
CALLED BELL [facility]OU[facility] WELDER 2ND SHIFT FOR RENAL. SHE AGREED THAT CORNFLAKES WOULD BE ACCEPTABLE LONG THEY ARE SOAKED AND SOFT. WILL SPECIAL ORDER THOSE NOW.
[2019-05-09 08:27] VITALS: BP 163/61
--- NOTE | 2019-05-09 10:07 | NUR ---
IV IN PATIENT RIGHT AC IS DISLODGED. REMOVED TAPE AND EXAMINED IV CATHETER IS INTACT.
--- NOTE | 2019-05-09 11:08 | NUR ---
ATTEMPTED [address] IV AND WAS UNABLE TO OBTAIN ACCESS. CALLED VASCULAR ACCESS NURSE. SHE IS WORKING ON ANOTHER PATIENT BUT LET ME KNOW THAT SHE WILL COME WHEN SHE IS DONE. TOLD CHARGE NURSE ALSO, AND SPECIALIZED DEVELOPER IS NOT HERE TODAY.
--- NOTE | 2019-05-09 11:30 | NUR ---
VASCULAR ACCESS NURSE WAS UNABLE TO GET ACCESS. PATIENT REFUSED TO LET HER STICK HIM A SECOND TIME. WILL CALL DR AND SEE HOW I SHOULD MOVE FORWARD.
[2019-05-09 13:04] VITALS: BP 146/53
--- NOTE | 2019-05-09 14:06 | MORECARE ---
CASE MANAGEMENT DISCHARGE SUMMARY PATIENT: ABBY PHILLIPS UNIT: [id number] ADM DATE: 04/19/19 AGE: 73 : [birth year] SEX: M ROOM/BED: D.0646 AUTHOR: BYRON,DOC PHYSICIAN: REFERRING PHYSICIAN: SAMUEL COOPER MD DATE OF SERVICE: 05/09/19 Discharge Plan Patient Name: ABBY PHILLIPS Facility: [facility]:[place] : 1945 Planned Disposition: Longterm Facility Anticipated Discharge Date: 05/04/19 Discharge Date: Expected LOS: 15 Initial Reviewer: [id number] Initial Review Date: 04/18/2019 Generated: 05/09/19 3:06 pm Comments DCP- Discharge Planning Updated by [id number]: Brandin Garcia on 05/09/19 1:[address] Patient Name: ABBY PHILLIPS Encounter No: [id number] : 1945 Primary Insurance: [facility] MED[employer] SOLUTIONS Anticipated DC Date: 05-04-2019 Planned Disposition: Longterm Facility External Planned Provider: [facility], MEDICARE REHAB BED DCP follow-up note: CM CALLED BETINA OF [facility], , ADVISED THAT CM FAXING UPDATE FOR REHAB ADMISSION. CM REVIEWED CHART, PT HAS NOT HAD PHYSICAL OR OCCUPATIONAL THERAPY IN ICU OR SINCE MOVING BACK TO [facility] FROM ICU. BETINA REPORTS PT WILL NEED UPDATED PHYSICAL AND OCCUPATIONAL THERAPY NOTES. CM FAXED UPDATE TO [facility] AT [phone]. RENAL DIRECTOR OF DIETARY VERÓNICA UPDATED. CM RECEIVED CALL FROM CHARLEY PHILLIPS, SON, , CM PROVIDED UPDATE AND PROVIDED BETINA'S NUMBER ([facility]) [phone]. RN HARSHAL HOUSE LEFT MESSAGE FOR MAKSIM CHILD OF [facility] REQUESTING UPDATE ON OUTPATIENT DIALYSIS UNIT PLACEMENT. [facility] PLANS TO ACCEPT PT PENDING INSURANCE PRIOR AUTHORIZATION FOR REHAB SERVICES AND WILL BEGIN WORKIING ON INSURANCE PRE AUTHORIZATION FOR REHAB SERVICES ONCE NEW PHYSICAL AND OCCUPATIONAL THERAPY NOTES ARE RECEIVED. MAKSIM OF [facility] IS WORKING ON OUTPATIENT DIALYSIS UNIT AND SCHEDULE THAT WILL ACCOMODATE REHAB TRANSPORTATION [facility]. Brandin Garcia CASE MANAGEMENT DCP- Discharge Planning Updated by [id number]: Brandin Garcia on 05/04/19 7:[address] Patient Name: ABBY PHILLIPS Encounter No: [id number] : 1945 Primary Insurance: [facility] SOLUTIONS Anticipated DC Date: 05-04-2019 Planned Disposition: Longterm Facility External Planned Provider: [facility], MEDICARE REHAB BED DCP follow-up note: CM CALLED BETINA OF [facility], , ADVISED THAT CM FAXING UPDATE FOR REHAB ADMISSION. CM RECEIVED MESSAGE FROM MAKSIM CHILD OF [facility] WHO IS WORKING ON OUTPATIENT DIALYSIS UNIT IN [place]. CM FAXED UPDATE TO [facility] AT [phone]. [facility] HAS ACCEPTED PT AND IS WORKIING ON INSURANCE PRE AUTHORIZATION FOR REHAB SERVICES. MAKSIM OF [facility] IS WORKING ON OUTPATIENT DIALYSIS UNIT AND SCHEDULE THAT WILL ACCOMODATE REHAB TRANSPORTATION SHEDULE. Brandin Garcia CASE MANAGEMENT DCP- Discharge Planning Updated by [id number]: Brandin Garcia on 05/04/19 7:[address] Patient Name: ABBY PHILLIPS Encounter No: [id number] : 1945 Primary Insurance: [facility] SOLUTIONS Anticipated DC Date: 05-02-2019 Planned Disposition: Longterm Facility External Planned Provider: [facility], MEDICARE REHAB BED DCP follow-up note: CM SPOKE TO PT IN ROOM, DISCUSSED OPTIONS FOR REHAB, INFORMED OF DENIALS AND ACCEPTANCE BY [facility]. PT STATES HE WILL GO TO [facility] FOR REHAB AND WOULD LIKE TO GET HOME SOON POSSIBLE. PT STATES HE IS DOING WELL WITH THERAPY AND FEELS HE MAY COULD GO HOME TODAY. CM EXPLAINED HAVING SAFE DISCHARGE AND NOTED PT'S VERY LIMITED ABILITY PER THERAPY NOTES, ENCOURAGED PT TO TAKE ADVANTAGE OF REHAB SERVICES THAT INSURANCE COVERS AT [facility]. PT IN AGREEMENT. CM CALLED CHARLEY PHILLIPS, , ADVISED CHARLEY OF ABOVE INFORMATION. CHARLEY IN AGREEMENT WITH [facility] AND DOES NOT WANT TO HOLD PLACEMENT FOR REHAB UP ANY LONGER. CHARLEY DOES NOT FEEL THAT PT IS SAFE TO DISCHARGE HOME AT THIS POINT AND NEEDS THE REHAB. CM CALLED BETINA OF [facility], , ADVISED THAT PT AND FAMILY IN AGREEMENT WITH REHAB AT [facility]. BETINA ADVISED THAT THE FACILITY WOULD PREFER AN EARLY DIALYSIS TIME, DAY IS NOT IMPORTANT, THEY WILL NOT TRANSPORT AFTER 5PM. CM NOTIFIED MAKSIM CHILD OF [facility] WHO WILL SEEK OUTPATIENT DIALYSIS UNIT IN [place]. PT NOTIFIED, IMPORTANT MESSAGE FROM MEDICARE PROVIDED AND EXPLAINED. [facility] HAS ACCEPTED PT AND IS WORKIING ON INSURANCE PRE AUTHORIZATION FOR REHAB SERVICES. [facility] IS WORKING ON OUTPATIENT DIALYSIS UNIT AND SCHEDULE THAT WILL ACCOMODATE REHAB TRANSPORTATION [facility]. Brandin Garcia, CASE MANAGEMENT DCP- Discharge Planning Updated by [id number]: Brandin Garcia on 05/02/19 10:[address] Patient Name: ABBY PHILLIPS Encounter No: [id number] : 1945 Primary Insurance: [facility] SOL[employer] Anticipated DC Date: 05-02-2019 Planned Disposition: Longterm Facility External Planned Provider: [facility] MEDICARE REHAB BED DCP follow-up note: CM RECEIVED CALL FROM [facility], , WAS ADVISED THEY ARE "PACKED" WITH NO BEDS AVAILABLE. CM RECEIVED CALL FROM BETINA OF [facility] [phone], WHO INFORMED CM THAT CLINICALLY, THEY WILL ACCEPT AND WILL ROZ FOR PRIOR AUTHORIZATION FROM PT'S INSURANCE FOR REHAB; BETINA WILL CALL CM SHORTLY REGARDING DIALYSIS UNIT PLACEMENT SCHEDULE NEEDS. BETINA WILL ALSO CALL PT'S SON. BETINA OF [facility], , CALLED, SHE HAS SPOKEN TO CHARLEY WHO DELINED PLACEMENT AT [facility] AND WANTS PLACEMENT AT [facility] OR [facility]. CM CALLED CHARLEY PHILLIPS AT [phone], LEFT MESSAGE ASKING FOR IMMEDIATE RETURN CALL. PT HAS [facility]; PT HAS BEEN ACCEPTED CLINICALLY BY [facility] FOR REHAB PLACEMENT. PT'S FAMILY HAS CANCELLED PLACEMENT; CM WAITING ON RETURN CALL FROM CHARLEY PHILLIPS, PT'S SON. Brandin Garcia, CASE MANAGEMENT DCP- Discharge Planning Updated by [id number]: Brandin Garcia on 05/02/19 8:[address] Patient Name: ABBY PHILLIPS Encounter No: [id number] : 1945 Primary Insurance: [facility] SOLUTIONS Anticipated DC Date: 05-02-2019 Planned Disposition: Longterm Facility External Planned Provider: [facility], MEDICARE REHAB BED DCP follow-up note: CM FAXED UPDATE TO [facility] AT [phone]. CM CALLED [facility], , WAS ADVISED BY ISAIAH THAT ADMISSIONS STAFF WERE IN THEIR MORNING MEETING; CM LEFT MESSAGE ASKING FOR UPDATE ON REHAB REFERRAL WITH CM CONTACT INFORMATION. CM FAXED REFERRAL UDPATE FOR [facility] AT [phone]. BETINA OF [facility], , WILL SCREEN PT FOR REHAB ADMISSION, TODAY, , TO ASSESS PT FOR ADMISSION; [facility] IS IN NETWORK WITH PT'S INSURANCE.. PT HAS BEEN DECLINED BY [facility]; CM WAITING ADMISSION DETERMINATIONS FROM [facility] AND [facility] FOR REHAB PLACEMENT. IF ACCEPTED AT EITHER FACILITY, CM WILL REQUEST CHANGE OF OUTPATIENT DIALYSIS UNIT. Brandin Garcia, CASE MANAGEMENT DCP- Discharge Planning Updated by [id number]: Brandin Garcia on 04/29/19 2:[address] Patient Name: ABBY PHILLIPS Encounter No: [id number] : 1945 Primary Insurance: [facility] SOLUTIONS Anticipated DC Date: 05-02-2019 Planned Disposition: Longterm Facility External Planned Provider: [facility], MEDICARE REHAB BED DCP follow-up note: CM RECEIVED CALL FROM PRASHANTH OF [facility], THEY WILL NOT ACCEPT ANOTHER DIALYSIS PATIENT AT THIS TIME. CM CALLED [facility], , WAS ADVISED THAT ADMISSIONS STAFF WERE IN MEETING; CM LEFT MESSAGE ASKING FOR UPDATE ON REHAB REFERRAL WITH CM CONTACT INFORMATION. CM CALLED AND SPOKE TO BETINA OF [facility], ; BETINA INFORMED CM THAT SHE HAS SEVERAL HOMES IN THE [facility] AND WILL SCREEN PT FOR REHAB ADMISSION, SHE WILL PERSONALLY COME TO HOSPITAL ON THURSDAY, , TO ASSESS PT FOR ADMISSION; [facility] IS IN NETWORK WITH PT'S INSURANCE. CM FAXED REFERRAL FOR [facility] AT [phone]. CM UPDATED PT WHO REPORTS WANTING REHAB PLACEMENT IN [place] CLOSE TO HIS SON POSSIBLE. CM UPDATE DR. COOPER VIA PHONE. DR. COOPER ADVISED THAT PT IS READY TO DISCHARGE TO REHAB WHEN ACCEPTED. PT HAS BEEN DECLINED BY THE [facility]; CM WAITING ADMISSION DETERMINATIONS FROM [facility] AND [facility] FOR REHAB PLACEMENT. IF ACCEPTED AT EITHER FACILITY, CM WILL REQUEST CHANGE OF OUTPATIENT DIALYSIS UNIT. SELENA Escobedo DCP- Discharge Planning Updated by [id number]: Brandin Garcia on 04/29/19 6:[address] Patient Name: ABBY PHILLIPS Encounter No: [id number] : 1945 Primary Insurance: [facility] SOLUTIONS Anticipated DC Date: 04-21-2019 Planned Disposition: Longterm Facility External Planned Provider:[facility] [place], MEDICARE REHAB BED DCP follow-up note: CM REVIEWED CHART, PT DID PARTICIPATE WITH THERAPY ON 04-27-19 AND 04-28-19. PT HAS DEMONSTRATED ABILITY TO TRANSFER AND SIT IN CHAIR FOR THREE OR MORE HOURS. CM FAXED REFERRAL UPDATE TO [facility] AT [phone]. AND [facility] AT [phone]. CM WAITING ADMISSION DETERMINATIONS FROM [facility] AND [facility]. IF EITHER FACLITY WILL ACCEPT, CM WILL REQUEST CHANGE OF DIALYSIS UNIT. PT'S INSURANCE ALSO REQUIRES PRIOR AUTHORIZATION FOR REHAB PLACEMENT. SELENA Escobedo DCP- Discharge Planning Updated by [id number]: Brandin Garcia on 04/28/19 6:[address] Patient Name: ABBY PHILLIPS Encounter No: [id number] : 1945 Primary Insurance: [facility] SOLUTIONS Anticipated DC Date: 04-21-2019 Planned Disposition: Longterm Facility External Planned Provider: [facility] OR [facility] [place], MEDICARE REHAB BED DCP follow-up note: CM REVIEWED CHART, PT DID PARTICIPATE WITH THERAPY ON 04-27-19. PT DID SIT UP IN CHAIR FOR THREE OR MORE HOURS. CM FAXED REFERRAL UPDATE TO [facility] AT [phone]. AND [facility] AT [phone]. CM WAITING ADMISSION DETERMINATIONS FROM [facility] AND [facility]. IF EITHER FACLITY WILL ACCEPT, CM WILL REQUEST CHANGE OF DIALYSIS UNIT. PT'S INSURANCE ALSO REQUIRES PRIOR AUTHORIZATION FOR REHAB PLACEMENT. SELENA Escobedo MANAGEMENT DCP- Discharge Planning Updated by [id number]: Brandin Garcia on 04/27/19 11:[address] Patient Name: ABBY PHILLIPS Encounter No: [id number] : 1945 Primary Insurance: [facility] SOLUTIONS Anticipated DC Date: 04-21-2019 Planned Disposition: Longterm Facility External Planned Provider[facility] [place], MEDICARE REHAB BED DCP follow-up note: CM REVIEWED CHART, PT DID NOT PARTICIPATE WITH THERAPY ON 04-26-19. CM MET WITH PT IN ROOM TO DISCUSS DISCHARGE PLANNING AND NEEDS. PT DOES NOT WANT [facility] OR HOSPICE. PT INSISTS THAT HE WANTS REHAB SERVICES. CM EXPLAINED THAT PT HAS TO PARTICIPATE FULLY WITH THERAPY EACH TIME OFFERED INSURANCE WILL NOT PAY FOR REHAB SERVICES WITHOUT PARTICIPATION WITH OFFERED THERAPY. PT REPORTS UNDERSTANDING. PT PROMISES TO PARTICIPATE WITH THERAPY SERVICES AND UNDERSTANDS THAT HE MUST SIT UP IN CHAIR FOR THREE OR MORE HOURS TO SHOW HE CAN GO TO OUTPATIENT DIALYSIS. CM RECEIVED CALL FROM MATILDA OF THE [facility] WHO WILL FOLLOW, BUT WILL ONLY CONSIDER IF PT IS PARTICIPATING WITH THERAPY. CM TO FAX REFERRAL UPDATE STO [facility] AT [phone]. AND [facility] AT [phone], ONCE NEW THERAPY NOTES ARE DOCUMENTED ON 04-27. CM WAITING ADMISSION DETERMINATIONS FROM [facility] AND [facility]. IF EITHER FACLITY WILL ACCEPT, CM WILL REQUEST CHANGE OF DIALYSIS UNIT. PT'S INSURANCE ALSO REQUIRES PRIOR AUTHORIZATION FOR REHAB PLACEMENT. SELENA Escobedo DCP- Discharge Planning Updated by [id number]: Brandin Garcia on 04/26/19 8:[address] Patient Name: ABBY PHILLIPS Encounter No: [id number] : 1945 Primary Insurance: [facility] [employer]UT[facility] Anticipated DC Date: 04-21-2019 Planned Disposition: Longterm Facility External [facility] IN [place], MEDICARE REHAB BED DCP follow-up note: CM FAXED REFERRALUPDATE TO [facility] AT [phone]. CM FAXED REFERRAL UDPATE FOR THE [facility] TO PRASHANTH AT [phone]. CM TO DISCUSS WITH REHAB TODAY THAT PT NEEDS TO HAVE DEMONSTRATED ABILITY TO SIT FOR THREE OR MORE HOURS IN CHAIR FOR OUTPATIENT DIALYSIS. CM WAITING ADMISSION DETERMINATIONS FROM [facility] AND [facility]. Brandin Garcia CASE MANAGEMENT DCP- Discharge Planning Updated by [id number]: Brandin Garcia on 04/25/19 1:[address] Patient Name: ABBY PHILLIPS Encounter No: [id number] : 1945 Primary Insurance: [facility] [employer]UT[facility] Anticipated DC Date: 04-21-2019 Planned Disposition: Longterm Facility External Planned Provider: [facility] OR [facility] IN [place], MEDICARE REHAB BED DCP follow-up note: CM RECEIVED CALL FROM CHARLEY PHILLIPS, PT'S SON, WHO ASKED WHAT IS TAKING SO LONG TO GET PT INTO REHAB IN [place]. CM EXPLAINED PLACEMENT PROCESS, INSURANCE APPROVAL TIME FRAME AND ALSO THE PROCESS OF HAVING TO GET ACCEPTING DIALYSIS UNIT IF CM CAN GET FACILITY TO ACCEPT PT. CHARLEY REPORTS UNDERSTANDING. [facility], , SPOKE TO SYD WHO INFORMED CM THAT SHE DID NOT GET THE REFERRAL. CM CONFIRMED FAX NUMBER, REVIEWED AND FOUND FAX CONFIRMATION FROM THURSDAY. CM FAXED REFERRAL AND UPDATE TO [facility] AT [phone]. CM SPOKE PRAHSANTH OF [facility], , SHE WILL CALL [facility] AND GET UPDATE SHE HAS NOT "HEARD A WORD". CM FAXED REFERRAL UDPATE FOR THE [facility] TO PRASHANTH AT [phone]. CM WAITING ADMISSION DETERMINATIONS FROM [facility] AND [facility]. Brandin Garcia, CASE MANAGEMENT DCP- Discharge Planning Updated by [id number]: Brandin Garcia on 04/22/19 10:[address] Patient Name: ABBY PHILLIPS Encounter No: [id number] : 1945 Primary Insurance: [facility] [employer]UT[facility] Anticipated DC Date: 04-21-2019 Planned Disposition: Longterm Facility External Planned Provider: [facility] [place], MEDICARE REHAB BED DCP follow-up note: CM SPOKE TO PT IN ROOM REGARDING DISCHARGE PLANNING. PT WILL GO TO REHAB IN [place] SO HE WILL BE CLOSE TO HIS SON. PT ASKED CM TO HURRY UP HE IS TIRED OF BEING IN THE HOSPITAL. CM EXPLAINED TO PT THAT IF HE WOULD HAVE DECIDED SOONER, CM WOULD HAVE ALREADY BEEN WORKING ON REHAB PLACEMENT. PT SIGNED CONSENT FOR [facility] SUGGESTED BY HIS SON AND FOR ANY PRISON REHAB IN [place]. CM EXPLAINED TO PT THAT HIS INSURANCE MAY TAKE SEVERAL DAYS TO APPROVE OR DECLINE REHAB SERVICES AND THAT CM WILL HAVE TO FIND A FACILITY THAT WILL TRANSPORT TO DIALYSIS AND IF ALL OF THAT IS DONE, CM WILL HAVE TO REQUEST A NEW DIALYSIS UNIT. PT REPORTS UNDERSTANDING. CM CALLED [facility], , SPOKE TO KAVIN WHO WILL SCREEN FOR ADMISSION. CM FAXED REFERRAL TO [facility] AT [phone]. CM NOTIFIED PRASHANTH OF [facility], , OF REFERRAL. CM FAXED REFERRAL FOR [facility] TO PRASHANTH AT [phone]. CM WAITING ADMISSION DETERMINATIONS FROM [facility] AND [facility]. Brandin Garcia, CASE MANAGEMENT DCP- Discharge Planning Updated by [id number]: Brandin Garcia on 04/21/19 4:[address] Patient Name: ABBY PHILLIPS Encounter No: [id number] : 1945 Primary Insurance: [facility] [employer] Anticipated DC Date: 04-21-2019 Planned Disposition: Longterm Facility External Planned Provider: [facility] OR OTHER PRISON IN [place] DCP follow-up note: CM RECEIVED CALL FROM CHARLEY JACQUELINE, PT'S SON, WHO REPORTS THAT HE HAS TALKED TO PT VIA PHONE AND PT IS NOW AGREEING TO GO TO PRISON REHAB IN [place], CLOSE TO HIS SON. CM ATTEMPTED TO SEE PT WHO WAS OUT OF ROOM AT APPROXIMATELY 1345 HOURS. CM WILL SPEAK TO PT SOON POSSIBLE REGARDING PRISON REHAB IN [place] AND SEND REFERRALS IF PT WILL SIGN THE CONSENT. Brandin Garcia, CASE MANAGEMENT DCP- Discharge Planning Updated by [id number]: Brandin Garcia on 04/21/19 11:[address] Patient Name: ABBY PHILLIPS Encounter No: [id number] : 1945 Primary Insurance: [facility] [employer] Anticipated DC Date: 04-21-2019 Planned Disposition: Left Against Medical Advice DCP follow-up note: CM SPOKE TO BEDSIDE NURSE WHO REPORTS PT'S SISTER, JORGE, CALLED AND STATES SHE WILL NOT BE PICKING PT UP FOR TRANSPORT HOME. CM MET WITH PT IN ROOM TO DISCUSS DISCHARGE PLANNING AND NEEDS. PT REPORTS STILL PLANNING TO LEAVE WHEN HE FINDS A RIDE. CM EXPLAINED THAT PT'S FAMILY MEMBERS ARE CALLING AND INFORMING HOSPITAL STAFF THEY ARE NOT PICKING UP PT. PT STATES HE HAS FRIENDS THAT ARE GOING TO HELP. CM PROVIDED PT WITH MEDICARE WEBSITE RESULTS FOR PRISON REHABS WITHIN 50 MILES OF HIS HOME. CM EXPLAINED THAT [facility] WILL NOT ACCEPT PT BACK AND THAT IF PT CHANGES HIS MIND AND DECIDES TO GO TO REHAB, CM WILL NEED PT'S TOP TWO SELECTIONS AND SIGNATURE ON THE CHOICE FORM. IMPORTANT MESSAGE FROM MEDICARE PROVIDED AND EXPLAINED. PT ASKED CM TO CALL ADAM SANCHES, PHARMACIST AT [facility] TO HAVE HER , JOHN SANCHES, CALL PT. CM CALLED AND WAS ADVISED BY ADAM THAT AGUSTIN SPOKE TO PT YESTERDAY AND SHE WILL LET HER KNOW THAT PT WANTS TO TALK TO HIM AGAIN. CM STILL REFUSING PRISON FACLITY PLACEMENT. CM WAITING ON PT TO DEVELOP TRANSPORTATION HOME. IF TRANSPORTATION IS VERIFIED, CALL JEANN[facility], , WILL HAS AGREED TO ARRANGE PORTABLE OXGYEN TO HOSPITAL FOR PT TO LEAVE HOSPITAL. CM TO CONTINUE TO FOLLOW AND ASSIST NEEDED. Biodiesel Plant Superintendent: Brandin Garcia DCP- Discharge Planning Updated by [id number]: Brandin Garcia on 04/21/19 8:[address] Patient Name: ABBY PHILLIPS Encounter No: [id number] : 1945 Primary Insurance: [facility] [employer] Anticipated DC Date: 04-21-2019 Planned Disposition: Left Against Medical Advice DCP follow-up note: CM SPOKE TO HERIBERTO SANCHES REGARDING PT'S DISCHARGE PLAN. TREATMENT TEAM CONCERNED THAT PT DOES NOT HAVE SAFE DISCHARGE PLAN. HARSHAL MET WITH HERIBERTO SANCHES WITH PT IN ROOM. PT INSISTS THAT HE WILL GO HOME, JOHN SANCHES, , WILL PICK HIM UP. PT REPORTS ALEXSANDRA LOPEZ, A FRIEND FROM [place] WILL ASSIST WITH CARING FOR PT IN HOME AND ASSIST WITH GETTING TO AND FROM DIALYSIS. PT REPORTS HE NORMALLY DRIVES HIMSELF TO AND FROM DIALYSIS AND IS ABLE TO TRANSFER HIMSELF TO A WHEELCHAIR, GET TO HIS CAR, GET THE WHEELCHAIR INTO THE TRUCK OF THE CAR AND THEN WALK TO AND GET INTO THE DRIVERS SEAT HOLDING ON TO THE CAR. PT REPORTS HAVING ELECTRIC AND MANUAL WHEELCHAIR AND IS ABLE TO TRANSFER HIMSELF FROM BED TO CHAIR AND CHAIR TO BED. PT DOES NOT KNOW THE NUMBER TO HIS FRIEND ALEXSANDRA, TO VERIFY HE WILL ASSIST AFTER DISCHARGE. PT REPORTS HIS SISTER HANDY LIVES IN HIS HOUSE AND HAS FOR FOUR MONTHS. CM ADVISED THAT FAMILY INFORMED STAFF HERE THAT PT NEEDS NURSING REHAB. PT REPORTS THAT HIS FAMILY IS WANTING TO KEEP HIM AWAY AND IN THE RETIREMENT. HERIBERTO SANCHES ADVISED THAT PT MUST HAVE A SAFE AND VERIFIABLE PLAN TO DISCHARGE HOME. CM ATTEMPTED TO CALL JOHN SANCHES, ; THERE WAS NO ANSWER AND NO MESSAGE MACHINE. CM CALLED [facility], , SPOKE TO [place] RAYNE WHO INFORMED CM THAT THEY CAN DELIVER PORTABLE OXYGEN TO PT'S ROOM FOR DISCHARGE IF NEEDED. HARSHAL SPOKE TO PT IN ROOM, HERIBERTO SANCHES WAS IN ROOM SPEAKING TO PT. PT STATES HE IS LEAVING "AMA". HERIBERTO SANCHES INFORMED PT THAT PT MUST HAVE A PERSON TO VERIFY THEY ARE TRANSPORTING PRIOR TO ANY AMA FORMS BEING PRESENTED. CM ADVISED PT IF HE IS ABLE TO VERIFY TRANSPORATATION BY CM SPEAKING TO THAT PERSON AND THEY AGREE TO AUTO SALVAGE WORKER PT, CM WILL ASK JEANNIE TO DELIVER PORTABLE OXYGEN TO ROOM. CM ASKED THAT IF PT CHANGES HIS MIND AND DECIDES TO GO TO PRISON REHAB, TO PLEASE NOTIFY CM AND CM WILL BE GLAD TO ASSIST WITH PLACEMENT. PT DECLINED. CM WAITING ON PT TO DEVELOP TRANSPORTATION HOME. IF TRANSPORTATION IS VERIFIED, CALL JEANNIE, , WILL HAS AGREED TO ARRANGE PORTABLE OXGYEN TO HOSPITAL FOR PT TO LEAVE HOSPITAL. CM TO CONTINUE TO FOLLOW AND ASSIST NEEDED. Biodiesel Plant Superintendent: Brandin Garcia DCP- Discharge Planning Updated by [id number]: Brandin Garcia on 04/20/19 1:[address] Patient Name: ABBY PHILLIPS Encounter No: [id number] : 1945 Primary Insurance: [facility] [employer] [employer] Anticipated DC Date: 04-19-2019 Planned Disposition: Home DCP follow-up note: CM MET WITH PT IN ROOM AND ENCOURAGED PT TO GO TO REHAB PRIOR TO DISCHARGE HOME. PT CONTINUES TO REFUSE AND REPORTS HIS SISTER WILL PICK HIM UP FOR DISCHARGE HOME. PT STATES HE MAY NEED OXYGEN FROM [facility] AGAIN TO GO HOME. CM EXPLAINED THAT IF HIS SISTER IS PICKING HIM UP AND SHE IS STAYING WITH PT IN PT'S HOME, SHE SHOULD BRING OXYGEN WITH HER. PT WILL REQUEST HIS SISTER BRING OXYGEN WITH HER. CM RECEIVED CALL FROM MIRIAM GORDON, , WHO INFORMED CM THAT PT HAS BEEN CALLING STATING HE IS GOING TO BE DISCHARGED TODAY AND NEEDS A RIDE HOME. JORGE STATES PT NEEDS TO GO BACK TO NURSING FACILITY FOR REHAB AND NOT HOME. CM EXPLAINED THAT CM CANNOT MAKE PT DO SOMETHING AGAINST PT'S WILL AND THAT IF PT IS NOT DEEMED INCOMPETENT BY A PHYSICIAN OR COURT, PT CAN MAKE BAD DECISIONS FOR HIMSELF. CM EXPLAINED HOW TO FILE FOR GUARDIANSHIP OF A PERSON AND THAT THIS WOULD HAVE TO BE GRANTED FOR ANYONE TO MAKE PT DO SOMETHING AGAINST HIS WILL. JORGE REPORTS UNDERSTANDING. PT PLANS TO DISCHARGE HOME WITH HIS SISTER, PT REPORTS HIS SISTER WILL PICK HIM UP FOR DISCHARGE HOME. PT DECLINES RETIREMENT, PRISON OR REHAB PLACEMENT. PATIENT IS NOT APPROPRIATE FOR HOME HEALTH PER [facility]. Biodiesel Plant Superintendent: Brandin Garcia DCP- Discharge Planning Updated by [id number]: Brandin Garcia on 04/19/19 3:[address] Patient Name: ABBY PHILLIPS Admission Status: ER Accout number: [id number] Admission Date: 04-19-2019 : 1945 Admission Diagnosis: Attending: SAMUEL COOPER Current LOS: 1 Anticipated DC Date: 04-19-2019 Planned Disposition: Home Primary Insurance: [facility] [employer] SOLUTIONS Discharge Planning Comments: CM MET WITH PT IN ROOM TO DISCUSS DISCHARGE PLANNING AND NEEDS. PT REPORTS LIVING AT HOME DEPENDENTLY WITH HIS SISTER HANDY WHO IS STAYING WITH PT IN PT'S HOME TO CARE FOR PT. . PT HAS [employer] LIFT AND WHEELCHAIR WELL HOME AND PORTABLE OXYGEN FROM [facility]. PT HAS NO OUTSIDE SERVICES ASSISTING IN THE HOME [facility] DECLINED TO ADMIT HIM AND TOLD HIM HE HAS TO BE DOING BETTER FOR HOME HEALTH SERVICES. CM DISCUSSED AVAILABILITY OF HOME HEALTH, REHAB SERVICES AND MEDICAL EQUIPMENT. PT DECLINED RETIREMENT OR REHAB PLACEMENT. PT DENIES DISCHARGE NEEDS, REPORTS HIS SISTER HANDY WILL PICK HIM UP FOR DISCHARGE HOME. PT REPORTS MISSING DIALYSIS BECAUSE HE WENT ON THURSDAY AND THEY DID NOT HAVE A SLING TO USE ON THE LIFT TO PICK HIM UP AT THE DIALYSIS UNIT. PT STATES HE HAS A SLING AT HOME AND FORGOT ABOUT IT. PT REPORTS HIS SISTER USES THE [employer] LIFT TO GET HIM TO THE WHEELCHAIR AND THEY WILL LEAVE THE SLING UNDER HIM FOR DIALYSIS TO USE FROM NOW ON. CHOICE SIGNED FOR [facility] TO VERIFY WITH THEM THAT THEY WILL NOT SEE PT. CM CALLED [facility], , LEFT MESSAGE ASKING FOR THE NURSE TO CALL CM BACK. PT PLANS TO DISCHARGE HOME WITH HIS SISTER, PT REPORTS HIS SISTER WILL PICK HIM UP FOR DISCHARGE HOME. PT DECLINES RETIREMENT, PRISON OR REHAB PLACEMENT. [employer]ies[employer] Plant Superintendent: Brandin Garcia Appended by Brandin Garcia on 04/19/2019 16:56 CDT: CM RECEIVED CALL FROM JER[facility] OF [facility] WHO INFORMED CM THAT THEY DID GO FOR THE HOME HEALTH ADMIT AND INFORMED PT AND FAMILY THAT PT NEEDS REHAB AND IS NOT APPROPRIATE FOR HOME HEALTH SERVICES AT THIS TIME. PT PLANS TO DISCHARGE HOME WITH HIS SISTER, PT REPORTS HIS SISTER WILL PICK HIM UP FOR DISCHARGE HOME. PT DECLINES RETIREMENT, PRISON OR REHAB PLACEMENT. [employer] Plant Superintendent: Brandin Garcia DCPIA - Discharge Planning Initial Assessment Updated by [email or web address]: Brandin Garcia on 04/22/19 11:13 am * Is the patient Alert and Oriented? Yes * How many steps to enter\\exit or inside your home? NONE * PCP DR. ARACELI SIDHU * [facility] * Preadmission Environment Home with Family * ADLs Partial Dependent * Partial ADLs (Assistance needed) Ambulation Bathing Dressing Medication Management Toileting Transfers * Equipment [employer] Lift Oxygen Wheelchair * Other Equipment HOME AND PORTABLE OXYGEN, [facility] * List name and contact numbers for known caregivers / representatives who currently or will assist patient after discharge: HANDY JONES, SISTER [phone] JORGE GORDON, SISTER, CHARLEY PHILLIPS, SON, * Verbal permission to speak to the caregivers and representatives has been obtained from the patient. Yes * Community resources currently utilized None * Please name any agencies selected above. PT HAD INTAKE WITH [email or web address] FROM [place], ACCORDING TO PT, THEY DECLINED T PROVIDE SERVICES UNTIL HE WAS "DOING BETTER" OUTPATIENT DIALYSIS , [facility]TS, 1000AM, [place]. PT REPORTS HE HAS BEEN DRIVING HIMSELF. * Additional services required to return to the preadmission environment? No * Can the patient safely return to the preadmission environment? Yes * Has this patient been hospitalized within the prior 30 days at any hospital? Yes Coverage Notice Reviewer: [id number] Skylar Augustin Notice Issued Date-Time: 04/19/2019 9:30 Notice Type: Medicare Outpatient Observation Notice Notice Delivered To: Patient Relationship to Patient: Self Auto Mechanic Name: Delivery Method: HAND - Hand Delivered Anusha Days: Prior Verbal Notification: Recipient Understood Notice: Yes Recipient Signature: Yes Med Rec Note Co-signed by Attending: Coverage Notice Comment: Reviewer: LIO Garcia Notice Issued Date-Time: 04/19/2019 12:15 Notice Type: Patient Choice Letter Notice Delivered To: Patient Relationship to Patient: Auto Mechanic Name: Delivery Method: HAND - Hand Delivered Anusha Days: Prior Verbal Notification: Recipient Understood Notice: Yes Recipient Signature: Yes Med Rec Note Co-signed by Attending: Coverage Notice Comment: Mikro Odeme | [employer] [facility] Reviewer: LIO Garcia Notice Issued Date-Time: 04/21/2019 11:45 Notice Type: IM Discharge Notice Notice Delivered To: Patient Relationship to Patient: Auto Mechanic Name: Delivery Method: HAND - Hand Delivered Anusha Days: Prior Verbal Notification: Recipient Understood Notice: Yes Recipient Signature: Yes Med Rec Note Co-signed by Attending: Coverage Notice Comment: Reviewer: LIO Garcia Notice Issued Date-Time: 04/22/2019 16:05 Notice Type: Patient Choice Letter Notice Delivered To: Patient Relationship to Patient: Auto Mechanic Name: Delivery Method: HAND - Hand Delivered Anusha Days: Prior Verbal Notification: Recipient Understood Notice: Yes Recipient Signature: Yes Med Rec Note Co-signed by Attending: Coverage Notice Comment: [facility]. Reviewer: [email or web address] Skylar Garcia Notice Issued Date-Time: 05/02/2019 12:48 Notice Type: IM Discharge Notice Notice Delivered To: Patient Relationship to Patient: Auto Mechanic Name: Delivery Method: HAND - Hand Delivered Anusha Days: Prior Verbal Notification: Recipient Understood Notice: Yes Recipient Signature: Yes Med Rec Note Co-signed by Attending: Coverage Notice Comment: Last DP export: 05/04/19 7:46 Patient Name: ABBY PHILLIPS Page [id number] at 1406 All edits/amendments must be made on the electronic document DICTATION DATE: 05/09/19 140 EDGER LINER: APRIL 05/09/19 1406 RPT#: [id number] DC DATE: STATUS: ADM IN [facility] [address] [place] [address] END OF REPORT
--- NOTE | 2019-05-09 15:11 | NUR ---
DIALYSIS COORDINATOR: [facility] ([facility]) HAS ACCEPTED ON A //THU ARRIVAL: 11:45 FOR ON-TIME: 12:00PM. FIRST APPT: 11:15AM FOR PAPERWORK. PATIENT NEEDS SOMEONE TO ACCOMPANY HIM IF UNABLE TO SIGN CONSENTS. PATIENT NEEDS TO START IN-CENTER ON April @ 11:15. WELCOME LETTER FAXED TO [facility].
[2019-05-09 17:19] VITALS: BP 134/44
--- NOTE | 2019-05-09 19:27 | NUR ---
RESTING WITH EYES CLOSED SKIN WARM AND DRY RESP EVEN AND UNLABORED AT THIS TIME WILL ASSESS MORE LATER BED IS LOW AND LOCKED SRX2 AND CALL LIGHT NEAR HAND
[2019-05-09 20:00] VITALS: BP 190/70
--- NOTE | 2019-05-09 21:06 | NUR ---
OT NOTE: PT COMPLETED FACE/HAND HYGIENE WITH MOD CUES. PT COMPLETED BED MOB TASKS WITH MIN/MOD A. THANK YOU, DEISY COTTON
--- NOTE | 2019-05-09 22:05 | NUR ---
RECHECK BP 162/72
[2019-05-10] VITALS: BP 161/61
[2019-05-10 04:00] VITALS: BP 186/76
[2019-05-10 05:56] LABS: BASOPHILS 0.2 % (0-2); EOSINOPHILS 3.4 % (0-7); HEMATOCRIT 26.8 % (42.0-54.0); IMMATURE GRANULOCYTES 0.8 % (0-5); LYMPHOCYTES 17.8 % (15-50); MCH 26.2 pg (26.0-34.0); MCHC 29.9 g/dL (31.0-37.0); MCV 87.9 fL (80.0-100.0); MEAN PLATELET VOLUME 9.6 fL (7.4-10.4); MONOCYTES 11.8 % (2-11); RBC 3.05 10x6/uL (4.20-6.10); RDW 20.9 % (11.5-14.5); WBC 13.5 10x3/uL (4.8-10.8)
[2019-05-10 06:14] LABS: PLATELET COUNT 449 10x3/uL (130-400)
[2019-05-10 06:20] LABS: ANION GAP 13.1 mmol/L (8-16); CALCIUM 8.3 mg/dL (8.5-10.1); POTASSIUM - SERUM 5.3 mmol/L (3.5-5.1)
[2019-05-10 06:23] LABS: CARBON DIOXIDE 29.2 mmol/L (21.0-32.0)
--- NOTE | 2019-05-10 07:00 | NUR ---
RECEIVED REPORT. ASSUMED CARE OF PATIENT. CALL LIGHT WITH IN REACH. PATIENT AWAKE, ALERT, COOPERATIVE. PATIENT RESTING IN BED ON LEFT LATERAL SIDE. CALL LIGHT WITHIN REACH. PATIENT IS SCHEDULED TO HAVE DIAYLSIS TODAY. NO DISTRESS. DENIES NEEDS AT THIS TIME. HEMOSPLIT TO RIGHT CHEST WALL, BIOPATCH VISIBLE THROUGH CLEAR DRESSING.
--- NOTE | 2019-05-10 09:52 | MORECARE ---
CASE MANAGEMENT DISCHARGE SUMMARY PATIENT: ABBY PHILLIPS UNIT: [id number] ADM DATE: 04/19/19 AGE: 73 : [birth year] SEX: M ROOM/BED: D.2106 AUTHOR: BYRON,DOC PHYSICIAN: REFERRING PHYSICIAN: SAMUEL COOPER MD DATE OF SERVICE: 05/10/19 Discharge Plan Patient Name: ABBY PHILLIPS Facility: [facility]:[place] : 1945 Planned Disposition: Custodial Facility Anticipated Discharge Date: 05/04/19 Discharge Date: Expected LOS: 15 Initial Reviewer: [id number] Initial Review Date: 04/18/2019 Generated: 05/10/19 10:52 am Comments DCP- Discharge Planning Updated by [id number]: Brandin Garcia on 05/10/19 8:[address] Patient Name: ABBY PHILLIPS Encounter No: [id number] : 1945 Primary Insurance: [facility] MEDICARE SOLUTIONS Anticipated DC Date: 05-04-2019 Planned Disposition: Custodial Facility External Planned Provider:[facility], MEDICARE REHAB BED DCP follow-up note: CM RECEIVED CALL ON 05-09-19, PT HAS NEW OUTPATIENT DIALYSIS CLINIC SCHEDULE AT [facility], [facility], FIRST APPOINTMENT 05-12-19 AT 1115AM. ON 05-10-19, CM CALLED [facility], , ADVISED OF NEW DIALYSIS SCHEDULE AND START DATE WELL CM FAXING UPDATE FOR REHAB ADMISSION WITH NEW THERAPY EVALUATIONS. CM SPOKE TO PT IN ROOM, PT STILL IN AGREEMENT WITH DISCHARGE TO REHAB AT [facility]. [facility] PLANS TO ACCEPT PT PENDING INSURANCE PRIOR AUTHORIZATION FOR REHAB SERVICES AND WILL BEGIN WORKIING ON INSURANCE PRE AUTHORIZATION FOR REHAB SERVICES TODAY. OUTPATIENT DIALYSIS SCHEDULE ARRANGED FOR TTS 1145AM AT [facility]. Brandin Garcia CASE MANAGEMENT DCP- Discharge Planning Updated by [id number]: Brandin Garcia on 05/09/19 1:[address] Patient Name: ABBY PHILLIPS Encounter No: [id number] : 1945 Primary Insurance: [facility] MEDICARE SOLUTIONS Anticipated DC Date: 05-04-2019 Planned Disposition: Custodial Facility External Planned Provider: [facility], MEDICARE REHAB BED DCP follow-up note: CM CALLED BETINA OF [facility], , ADVISED THAT CM FAXING UPDATE FOR REHAB ADMISSION. CM REVIEWED CHART, PT HAS NOT HAD PHYSICAL OR OCCUPATIONAL THERAPY IN ICU OR SINCE MOVING BACK TO [facility] FROM ICU. BETINA REPORTS PT WILL NEED UPDATED PHYSICAL AND OCCUPATIONAL THERAPY NOTES. CM FAXED UPDATE TO [facility] AT [phone]. RENAL SALES OPERATIONS LEAD VERÓNICA UPDATED. CM RECEIVED CALL FROM CHARLEY PHILLIPS, SON, , CM PROVIDED UPDATE AND PROVIDED BETINA'S NUMBER ([facility]) [phone]. HARJIT CAPUTO [employer]SE LEFT MESSAGE FOR MAKSIM CHILD OF [facility] REQUESTING UPDATE ON OUTPATIENT DIALYSIS UNIT PLACEMENT. [facility] PLANS TO ACCEPT PT PENDING INSURANCE PRIOR AUTHORIZATION FOR REHAB SERVICES AND WILL BEGIN WORKIING ON INSURANCE PRE AUTHORIZATION FOR REHAB SERVICES ONCE NEW PHYSICAL AND OCCUPATIONAL THERAPY NOTES ARE RECEIVED. MASON CALDERA IS WORKING ON OUTPATIENT DIALYSIS UNIT AND SCHEDULE THAT WILL ACCOMODATE REHAB TRANSPORTATION SHEDULE. Brandin Garcia, CASE MANAGEMENT DCP- Discharge Planning Updated by [id number]: Brandin Garcia on 05/04/19 7:[address] Patient Name: ABBY PHILLIPS Encounter No: [id number] : 1945 Primary Insurance: [facility] MEDICARE SOLUTIONS Anticipated DC Date: 05-04-2019 Planned Disposition: Custodial Facility External Planned Provider: [facility], MEDICARE REHAB BED DCP follow-up note: CM CALLED BETINA OF [facility], , ADVISED THAT CM FAXING UPDATE FOR REHAB ADMISSION. CM RECEIVED MESSAGE FROM MAKSIM CHILD OF [facility] WHO IS WORKING ON OUTPATIENT DIALYSIS UNIT IN [place]. CM FAXED UPDATE TO [facility] AT [phone]. [facility] HAS ACCEPTED PT AND IS WORKIING ON INSURANCE PRE AUTHORIZATION FOR REHAB SERVICES. MASON CALDERA IS WORKING ON OUTPATIENT DIALYSIS UNIT AND SCHEDULE THAT WILL ACCOMODATE REHAB TRANSPORTATION SHEDULE. Brandin Garcia CASE MANAGEMENT DCP- Discharge Planning Updated by [id number]: Brandin Garcia on 05/04/19 7:[address] Patient Name: ABBY PHILLIPS Encounter No: [id number] : 1945 Primary Insurance: [facility] MEDICARE SOLUTIONS Anticipated DC Date: 05-02-2019 Planned Disposition: Custodial Facility External Planned Provider: [facility], MEDICARE REHAB BED DCP follow-up note: CM SPOKE TO PT IN ROOM, DISCUSSED OPTIONS FOR REHAB, INFORMED OF DENIALS AND ACCEPTANCE BY [facility]. PT STATES HE WILL GO TO [facility] FOR REHAB AND WOULD LIKE TO GET HOME SOON POSSIBLE. PT STATES HE IS DOING WELL WITH THERAPY AND FEELS HE MAY COULD GO HOME TODAY. CM EXPLAINED HAVING SAFE DISCHARGE AND NOTED PT'S VERY LIMITED ABILITY PER THERAPY NOTES, ENCOURAGED PT TO TAKE ADVANTAGE OF REHAB SERVICES THAT INSURANCE COVERS AT [facility]. PT IN AGREEMENT. CM CALLED CHARLEY PHILLIPS, , ADVISED CHARLEY OF ABOVE INFORMATION. CHARLEY IN AGREEMENT WITH [facility] AND DOES NOT WANT TO HOLD PLACEMENT FOR REHAB UP ANY LONGER. CHARLEY DOES NOT FEEL THAT PT IS SAFE TO DISCHARGE HOME AT THIS POINT AND NEEDS THE REHAB. CM CALLED BETINA OF [facility], , ADVISED THAT PT AND FAMILY IN AGREEMENT WITH REHAB AT [facility]. BETINA ADVISED THAT THE FACILITY WOULD PREFER AN EARLY DIALYSIS TIME, DAY IS NOT IMPORTANT, THEY WILL NOT TRANSPORT AFTER 5PM. CM NOTIFIED MAKSIM CHILD OF [facility] WHO WILL SEEK OUTPATIENT DIALYSIS UNIT IN [place]. PT NOTIFIED, IMPORTANT MESSAGE FROM MEDICARE PROVIDED AND EXPLAINED. [facility] HAS ACCEPTED PT AND IS WORKIING ON INSURANCE PRE AUTHORIZATION FOR REHAB SERVICES. MAKSIM OF [facility] IS WORKING ON OUTPATIENT DIALYSIS UNIT AND SCHEDULE THAT WILL ACCOMODATE REHAB TRANSPORTATION SHEDULE. Brandin Garcia CASE MANAGEMENT DCP- Discharge Planning Updated by [id number]: Brandin Garcia on 05/02/19 10:[address] Patient Name: ABBY PHILLIPS Encounter No: [id number] : 1945 Primary Insurance: [facility] MEDICARE SOLUTIONS Anticipated DC Date: 05-02-2019 Planned Disposition: Custodial Facility External Planned Provider: [facility], MEDICARE REHAB BED DCP follow-up note: CM RECEIVED CALL FROM SYD OF [facility], , WAS ADVISED THEY ARE "PACKED" WITH NO BEDS AVAILABLE. CM RECEIVED CALL FROM BETINA OF [facility] [phone], WHO INFORMED CM THAT CLINICALLY, THEY WILL ACCEPT AND WILL ROZ FOR PRIOR AUTHORIZATION FROM PT'S INSURANCE FOR REHAB; BETINA WILL CALL CM SHORTLY REGARDING DIALYSIS UNIT PLACEMENT SCHEDULE NEEDS. BETINA WILL ALSO CALL PT'S SON. BETINA OF [facility], , CALLED, SHE HAS SPOKEN TO CHARLEY WHO DELINED PLACEMENT AT [facility] AND WANTS PLACEMENT AT [facility] OR [facility]. CM CALLED CHARLEY JACQUELINE AT [phone], LEFT MESSAGE ASKING FOR IMMEDIATE RETURN CALL. PT HAS BEEN [facility] AND [facility]; PT HAS BEEN ACCEPTED CLINICALLY BY [facility] FOR REHAB PLACEMENT. PT'S FAMILY HAS CANCELLED PLACEMENT; CM WAITING ON RETURN CALL FROM CHARLEY PHILLIPS, PT'S SON. Brandin Garcia, CASE MANAGEMENT DCP- Discharge Planning Updated by [id number]: Brandin Garcia on 05/02/19 8:[address] Patient Name: ABBY PHILLIPS Encounter No: [id number] : 1945 Primary Insurance: [facility] MEDICARE SOLUTIONS Anticipated DC Date: 05-02-2019 Planned Disposition: Custodial Facility External Planned Provider: [facility], MEDICARE REHAB BED DCP follow-up note: CM FAXED UPDATE TO [facility] AT [phone]. CM CALLED [facility], , WAS ADVISED BY ISAIAH THAT ADMISSIONS STAFF WERE IN THEIR MORNING MEETING; CM LEFT MESSAGE ASKING FOR UPDATE ON REHAB REFERRAL WITH CM CONTACT INFORMATION. CM FAXED REFERRAL UDPATE FOR [facility] AT [phone]. BETINA OF [facility], , WILL SCREEN PT FOR REHAB ADMISSION, TODAY, , TO ASSESS PT FOR ADMISSION; [facility] IS IN NETWORK WITH PT'S INSURANCE.. PT HAS BEEN DECLINED BY [facility]; CM WAITING ADMISSION DETERMINATIONS FROM [facility] AND [facility] FOR REHAB PLACEMENT. IF ACCEPTED AT EITHER FACILITY, CM WILL REQUEST CHANGE OF OUTPATIENT DIALYSIS UNIT. SELENA Escobedo MANAGEMENT DCP- Discharge Planning Updated by [id number]: Brandin Garcia on 04/29/19 2:[address] Patient Name: ABBY PHILLIPS Encounter No: [id number] : 1945 Primary Insurance: [facility] MEDICARE SOLUTIONS Anticipated DC Date: 05-02-2019 Planned Disposition: Custodial Facility External Planned Provider: [facility], MEDICARE REHAB BED DCP follow-up note: CM RECEIVED CALL FROM PRASHANTH OF [facility], THEY WILL NOT ACCEPT ANOTHER DIALYSIS PATIENT AT THIS TIME. CM CALLED [facility], , WAS ADVISED THAT ADMISSIONS STAFF WERE IN MEETING; CM LEFT MESSAGE ASKING FOR UPDATE ON REHAB REFERRAL WITH CM CONTACT INFORMATION. CM CALLED AND SPOKE TO BETINA OF [facility], ; BETINA INFORMED CM THAT SHE HAS SEVERAL HOMES IN THE [place] AREA AND WILL SCREEN PT FOR REHAB ADMISSION, SHE WILL PERSONALLY COME TO HOSPITAL ON THURSDAY, , TO ASSESS PT FOR ADMISSION; [facility] IS IN NETWORK WITH PT'S INSURANCE. CM FAXED REFERRAL FOR [facility] AT [phone]. CM UPDATED PT WHO REPORTS WANTING REHAB PLACEMENT IN [place] CLOSE TO HIS SON POSSIBLE. CM UPDATE DR. COOPER VIA PHONE. DR. COOPER ADVISED THAT PT IS READY TO DISCHARGE TO REHAB WHEN ACCEPTED. PT HAS BEEN DECLINED BY THE [facility]; CM WAITING ADMISSION DETERMINATIONS FROM [facility] AND [facility] FOR REHAB PLACEMENT. IF ACCEPTED AT EITHER FACILITY, CM WILL REQUEST CHANGE OF OUTPATIENT DIALYSIS UNIT. SELENA Escobedo DCP- Discharge Planning Updated by [id number]: Brandin Garcia on 04/29/19 6:[address] Patient Name: ABBY PHILLIPS Encounter No: [id number] : 1945 Primary Insurance: [facility] MEDICARE SOLUTIONS Anticipated DC Date: 04-21-2019 Planned Disposition: Custodial Facility External Planned Provider:[facility] OR [facility] [place], MEDICARE REHAB BED DCP follow-up note: CM REVIEWED CHART, PT DID PARTICIPATE WITH THERAPY ON 04-27-19 AND 04-28-19. PT HAS DEMONSTRATED ABILITY TO TRANSFER AND SIT IN CHAIR FOR THREE OR MORE HOURS. CM FA[facility]ED [facility]FERRAL UPDATE [facility] AT [phone]. AND [facility] AT [phone]. CM WAITING ADMISSION DETERMINATIONS FROM [facility] AND [facility]. IF EITHER FACLITY WILL ACCEPT, CM WILL REQUEST CHANGE OF DIALYSIS UNIT. PT'S INSURANCE ALSO REQUIRES PRIOR AUTHORIZATION FOR REHAB PLACEMENT. Brandin Garcia CASE MANAGEMENT DCP- Discharge Planning Updated by [id number]: Brandin Garcia on 04/28/19 6:[address] Patient Name: ABBY PHILLIPS Encounter No: [id number] : 1945 Primary Insurance: [facility] MEDICARE SOLUTIONS Anticipated DC Date: 04-21-2019 Planned Disposition: Custodial Facility External Planned Provider: [facility] OR [facility] [place], MEDICARE REHAB BED DCP follow-up note: CM REVIEWED CHART, PT DID PARTICIPATE WITH THERAPY ON 04-27-19. PT DID SIT UP IN CHAIR FOR THREE OR MORE HOURS. CM FAXED REFERRAL UPDATE TO [facility] AT [phone]. AND [facility] AT [phone]. CM WAITING ADMISSION DETERMINATIONS FROM [facility] AND [facility]. IF EITHER FACLITY WILL ACCEPT, CM WILL REQUEST CHANGE OF DIALYSIS UNIT. PT'S INSURANCE ALSO REQUIRES PRIOR AUTHORIZATION FOR REHAB PLACEMENT. Brandin Garcia CASE MANAGEMENT DCP- Discharge Planning Updated by [id number]: Brandin Garcia on 04/27/19 11:[address] Patient Name: ABBY PHILLIPS Encounter No: [id number] : 1945 Primary Insurance: [facility] MEDICARE SOLUTIONS Anticipated DC Date: 04-21-2019 Planned Disposition: Custodial Facility External Planned Provider: [facility] OR [facility] [place], MEDICARE REHAB BED DCP follow-up note: CM REVIEWED CHART, PT DID NOT PARTICIPATE WITH THERAPY ON 04-26-19. CM MET WITH PT IN ROOM TO DISCUSS DISCHARGE PLANNING AND NEEDS. PT DOES NOT WANT RECONDITIONING ASSOCIATE CARE OR HOSPICE. PT INSISTS THAT HE WANTS REHAB SERVICES. CM EXPLAINED THAT PT HAS TO PARTICIPATE FULLY WITH THERAPY EACH TIME OFFERED INSURANCE WILL NOT PAY FOR REHAB SERVICES WITHOUT PARTICIPATION WITH OFFERED THERAPY. PT REPORTS UNDERSTANDING. PT PROMISES TO PARTICIPATE WITH THERAPY SERVICES AND UNDERSTANDS THAT HE MUST SIT UP IN CHAIR FOR THREE OR MORE HOURS TO SHOW HE CAN GO TO OUTPATIENT DIALYSIS. CM RECEIVED CALL FROM MATILDA OF THE [facility] WHO WILL FOLLOW, BUT WILL ONLY CONSIDER IF PT IS PARTICIPATING WITH THERAPY. CM TO FAX REFERRAL UPDATE STO [facility] AT [phone]. AND THE [facility] AT [phone], ONCE NEW THERAPY NOTES ARE DOCUMENTED ON 04-27. CM WAITING ADMISSION DETERMINATIONS FROM [facility] AND [facility]. IF EITHER FACLITY WILL ACCEPT, CM WILL REQUEST CHANGE OF DIALYSIS UNIT. PT'S INSURANCE ALSO REQUIRES PRIOR AUTHORIZATION FOR REHAB PLACEMENT. Brandin Garcia CASE MANAGEMENT DCP- Discharge Planning Updated by [id number]: Brandin Garcia on 04/26/19 8:[address] Patient Name: ABBY PHILLIPS Encounter No: [id number] : 1945 Primary Insurance: [facility] MEDICARE SOLUTIONS Anticipated DC Date: 04-21-2019 Planned Disposition: Custodial Facility External Planned Provider:[facility] IN [place], MEDICARE REHAB BED DCP follow-up note: CM [facility] AT [phone]. CM FAXED REFERRAL UDPATE FOR [facility] TO PRASHANTH AT [phone]. CM TO DISCUSS WITH REHAB TODAY THAT PT NEEDS TO HAVE DEMONSTRATED ABILITY TO SIT FOR THREE OR MORE HOURS IN CHAIR FOR OUTPATIENT DIALYSIS. CM WAITING ADMISSION DETERMINATIONS FROM [facility] AND [facility]. Brandin Garcia CASE ROXANNA DCP- Discharge Planning Updated by [id number]: Brandin Garcia on 04/25/19 1:[address] Patient Name: ABBY PHILLIPS Encounter No: [id number] : 1945 Primary Insurance: [facility] MEDICARE SOLUTIONS Anticipated DC Date: 04-21-2019 Planned Disposition: Custodial Facility External Planned Provider: [facility] IN [place], MEDICARE REHAB BED DCP follow-up note: CM RECEIVED CALL FROM CHARLEY PHILLIPS, PT'S SON, WHO ASKED WHAT IS TAKING SO LONG TO GET PT INTO REHAB IN [place]. CM EXPLAINED PLACEMENT PROCESS, INSURANCE APPROVAL TIME FRAME AND ALSO THE PROCESS OF HAVING TO GET ACCEPTING DIALYSIS UNIT IF CM CAN GET FACILITY TO ACCEPT PT. CHARLEY REPORTS UNDERSTANDING. CM CALLED [facility], , SPOKE TO SYD WHO INFORMED CM THAT SHE DID NOT GET THE REFERRAL. CM CONFIRMED FAX NUMBER, REVIEWED AND FOUND FAX CONFIRMATION FROM THURSDAY. CM FAXED REFERRAL AND UPDATE TO [facility] AT [phone]. CM SPOKE PRASHANTH OF THE [facility], , SHE WILL CALL [facility] AND GET UPDATE SHE HAS NOT "HEARD A WORD". CM FAXED REFERRAL UDPATE FOR [facility] TO PRASHANTH AT [phone]. CM WAITING ADMISSION DETERMINATIONS [facility] AND [facility]. Brandin Garcia, CASE MANAGEMENT DCP- Discharge Planning Updated by [id number]: Brandin Garcia on 04/22/19 10:[address] Patient Name: ABBY PHILLIPS Encounter No: [id number] : 1945 Primary Insurance: [facility] MEDICARE SOLUTIONS Anticipated DC Date: 04-21-2019 Planned Disposition: Custodial Facility External Planned [facility] [place], MEDICARE REHAB BED DCP follow-up note: CM SPOKE TO PT IN ROOM REGARDING DISCHARGE PLANNING. PT WILL GO TO REHAB IN [place] SO HE WILL BE CLOSE TO HIS SON. PT ASKED CM TO HURRY UP HE IS TIRED OF BEING IN THE HOSPITAL. CM EXPLAINED TO PT THAT IF HE WOULD HAVE DECIDED SOONER, CM WOULD HAVE ALREADY BEEN WORKING ON REHAB PLACEMENT. PT SIGNED CONSENT FOR [facility] SUGGESTED BY HIS SON AND FOR ANY LONG TERM REHAB IN [place]. CM EXPLAINED TO PT THAT HIS INSURANCE MAY TAKE SEVERAL DAYS TO APPROVE OR DECLINE REHAB SERVICES AND THAT CM WILL HAVE TO FIND A FACILITY THAT WILL TRANSPORT TO DIALYSIS AND IF ALL OF THAT IS DONE, CM WILL HAVE TO REQUEST A NEW DIALYSIS UNIT. PT REPORTS UNDERSTANDING. CM CALLED [facility], , SPOKE TO KAVIN WHO WILL SCREEN FOR ADMISSION. CM FAXED REFERRAL TO [facility] AT [phone]. CM NOTIFIED PRASHANTH OF THE [facility], , OF REFERRAL. CM FAXED REFERRAL FOR [facility] TO PRASHANTH AT [phone]. CM WAITING [facility]MINATIONS [facility] AND [facility]. Brandin Garcia, CASE MANAGEMENT DCP- Discharge Planning Updated by [id number]: Brandin Garcia on 04/21/19 4:[address] Patient Name: ABBY PHILLIPS Encounter No: [id number] : 1945 Primary Insurance: [facility] MEDICARE SOLUTIONS Anticipated DC Date: 04-21-2019 Planned Disposition: Custodial Facility External Planned Provider: [facility] OR OTHER LONG TERM IN [place] DCP follow-up note: CM RECEIVED CALL FROM CHARLEY PHILLIPS, PT'S SON, WHO REPORTS THAT HE HAS TALKED TO PT VIA PHONE AND PT IS NOW AGREEING TO GO TO LONG TERM REHAB IN [place], CLOSE TO HIS SON. CM ATTEMPTED TO SEE PT WHO WAS OUT OF ROOM AT APPROXIMATELY 1345 HOURS. CM WILL SPEAK TO PT SOON POSSIBLE REGARDING LONG TERM REHAB IN [place] AND SEND REFERRALS IF PT WILL SIGN THE CONSENT. Brandin Garcia CASE ROXANNA DCP- Discharge Planning Updated by [id number]: Brandin Garcia on 04/21/19 11:[address] Patient Name: ABBY PHILLIPS Encounter No: [id number] : 1945 Primary Insurance: [facility] MEDICARE SOLUTIONS Anticipated DC Date: 04-21-2019 Planned Disposition: Left Against Medical Advice DCP follow-up note: CM SPOKE TO BEDSIDE NURSE WHO REPORTS PT'S SISTER, JORGE, CALLED AND STATES SHE WILL NOT BE PICKING PT UP FOR TRANSPORT HOME. CM MET WITH PT IN ROOM TO DISCUSS DISCHARGE PLANNING AND NEEDS. PT REPORTS STILL PLANNING TO LEAVE WHEN HE FINDS A RIDE. CM EXPLAINED THAT PT'S FAMILY MEMBERS ARE CALLING AND INFORMING HOSPITAL STAFF THEY ARE NOT PICKING UP PT. PT STATES HE HAS FRIENDS THAT ARE GOING TO HELP. CM PROVIDED PT WITH MEDICARE WEBSITE RESULTS FOR LONG TERM REHABS WITHIN 50 MILES OF HIS HOME. CM EXPLAINED THAT [facility] WILL NOT ACCEPT PT BACK AND THAT IF PT CHANGES HIS MIND AND DECIDES TO GO TO REHAB, CM WILL NEED PT'S TOP TWO SELECTIONS AND SIGNATURE ON THE CHOICE FORM. IMPORTANT MESSAGE FROM MEDICARE PROVIDED AND EXPLAINED. PT ASKED CM TO CALL ADAM SANCHES, PHARMACIST AT [facility] TO HAVE HER , JOHN SANCHES, CALL PT. CM CALLED AND WAS ADVISED BY ADAM THAT AGUSTIN SPOKE TO PT YESTERDAY AND SHE WILL LET HER KNOW THAT PT WANTS TO TALK TO HIM AGAIN. CM STILL REFUSING LONG TERM FACLITY PLACEMENT. CM WAITING ON PT TO DEVELOP TRANSPORTATION HOME. IF TRANSPORTATION IS VERIFIED, CALL [facility], , WILL HAS AGREED TO ARRANGE PORTABLE OXGYEN TO HOSPITAL FOR PT TO LEAVE HOSPITAL. CM TO CONTINUE TO FOLLOW AND ASSIST NEEDED. Forensic Identification Specialist: Brandin Garcia DCP- Discharge Planning Updated by [id number]: Brandin Garcia on 04/21/19 8:[address] Patient Name: ABBY PHILLIPS Encounter No: [id number] : 1945 Primary Insurance: [facility] MEDICARE SOLUTIONS Anticipated DC Date: 04-21-2019 Planned Disposition: Left Against Medical Advice DCP follow-up note: CM SPOKE TO HERIBERTO SANCHES REGARDING PT'S DISCHARGE PLAN. TREATMENT TEAM CONCERNED THAT PT DOES NOT HAVE SAFE DISCHARGE PLAN. CM MET WITH HERIBERTO SANCHES WITH PT IN ROOM. PT INSISTS THAT HE WILL GO HOME, JOHN SANCHES, , WILL PICK HIM UP. PT REPORTS ALEXSANDRA LOPEZ, A FRIEND FROM [place] WILL ASSIST WITH CARING FOR PT IN HOME AND ASSIST WITH GETTING TO AND FROM DIALYSIS. PT REPORTS HE NORMALLY DRIVES HIMSELF TO AND FROM DIALYSIS AND IS ABLE TO TRANSFER HIMSELF TO A WHEELCHAIR, GET TO HIS CAR, GET THE WHEELCHAIR INTO THE TRUCK OF THE CAR AND THEN WALK TO AND GET INTO THE DRIVERS SEAT HOLDING ON TO THE CAR. PT REPORTS HAVING ELECTRIC AND MANUAL WHEELCHAIR AND IS ABLE TO TRANSFER HIMSELF FROM BED TO CHAIR AND CHAIR TO BED. PT DOES NOT KNOW THE NUMBER TO HIS FRIEND ALEXSANDRA, TO VERIFY HE WILL ASSIST AFTER DISCHARGE. PT REPORTS HIS SISTER HANDY LIVES IN HIS HOUSE AND HAS FOR FOUR MONTHS. CM ADVISED THAT FAMILY INFORMED STAFF HERE THAT PT NEEDS NURSING REHAB. PT REPORTS THAT HIS FAMILY IS WANTING TO KEEP HIM AWAY AND IN THE JAIL. HERIBERTO SANCHES ADVISED THAT PT MUST HAVE A SAFE AND VERIFIABLE PLAN TO DISCHARGE HOME. CM ATTEMPTED TO CALL JOHN VERÓNICA, ; THERE WAS NO ANSWER AND NO MESSAGE MACHINE. CM CALLED [facility], , SPOKE TO PATROL SUPERVISOR WILL WHO INFORMED CM THAT THEY CAN DELIVER PORTABLE OXYGEN TO PT'S ROOM FOR DISCHARGE IF NEEDED. CM SPOKE TO PT IN ROOM, HERIBERTO SANCHES WAS IN ROOM SPEAKING TO PT. PT STATES HE IS LEAVING "AMA". HERIBERTO SANCHES INFORMED PT THAT PT MUST HAVE A PERSON TO VERIFY THEY ARE TRANSPORTING PRIOR TO ANY AMA FORMS BEING PRESENTED. CM ADVISED PT IF HE IS ABLE TO VERIFY TRANSPORATATION BY CM SPEAKING TO THAT PERSON AND THEY AGREE TO POWER CLEANER OPERATOR PT, CM WILL ASK JEANNIE TO DELIVER PORTABLE OXYGEN TO ROOM. CM ASKED THAT IF PT CHANGES HIS MIND AND DECIDES TO GO TO LONG TERM REHAB, TO PLEASE NOTIFY CM AND CM WILL BE GLAD TO ASSIST WITH PLACEMENT. PT DECLINED. CM WAITING ON PT TO DEVELOP TRANSPORTATION HOME. IF TRANSPORTATION IS VERIFIED, CALL JEANNIE, , WILL HAS AGREED TO ARRANGE PORTABLE OXGYEN TO HOSPITAL FOR PT TO LEAVE HOSPITAL. CM TO CONTINUE TO FOLLOW AND ASSIST NEEDED. Forensic Identification Specialist: Brandin Garcia DCP- Discharge Planning Updated by [id number]: Brandin Garcia on 04/20/19 1:[address] Patient Name: ABBY PHILLIPS Encounter No: [id number] : 1945 Primary Insurance: [facility] MEDICARE SOLUTIONS Anticipated DC Date: 04-19-2019 Planned Disposition: Home DCP follow-up note: HARSHAL MET WITH PT IN ROOM AND ENCOURAGED PT TO GO TO REHAB PRIOR TO DISCHARGE HOME. PT CONTINUES TO REFUSE AND REPORTS HIS SISTER WILL PICK HIM UP FOR DISCHARGE HOME. PT STATES HE MAY NEED OXYGEN FROM [facility] AGAIN TO GO HOME. HARSHAL EXPLAINED THAT IF HIS SISTER IS PICKING HIM UP AND SHE IS STAYING WITH PT IN PT'S HOME, SHE SHOULD BRING OXYGEN WITH HER. PT WILL REQUEST HIS SISTER BRING OXYGEN WITH HER. HARSHAL RECEIVED CALL FROM MIRIAM GORDON, , WHO INFORMED CM THAT PT HAS BEEN CALLING STATING HE IS GOING TO BE DISCHARGED TODAY AND NEEDS A RIDE HOME. JORGE STATES PT NEEDS TO GO BACK TO NURSING FACILITY FOR REHAB AND NOT HOME. CM EXPLAINED THAT CM CANNOT MAKE PT DO SOMETHING AGAINST PT'S WILL AND THAT IF PT IS NOT DEEMED INCOMPETENT BY A PHYSICIAN OR COURT, PT CAN MAKE BAD DECISIONS FOR HIMSELF. CM EXPLAINED HOW TO FILE FOR GUARDIANSHIP OF A PERSON AND THAT THIS WOULD HAVE TO BE GRANTED FOR ANYONE TO MAKE PT DO SOMETHING AGAINST HIS WILL. JORGE REPORTS UNDERSTANDING. PT PLANS TO DISCHARGE HOME WITH HIS SISTER, PT REPORTS HIS SISTER WILL PICK HIM UP FOR DISCHARGE HOME. PT DECLINES JAIL, LONG TERM OR REHAB PLACEMENT. PATIENT IS NOT APPROPRIATE FOR HOME HEALTH PER [facility]. Forensic Identification Specialist: Brandin Garcia DCP- Discharge Planning Updated by [id number]: Brandin Garcia on 04/19/19 3:[address] Patient Name: ABBY PHILLIPS Admission Status: ER Accout number: [id number] Admission Date: 04-19-2019 : 1945 Admission Diagnosis: Attending: SAMUEL COOPER Current LOS: 1 Anticipated DC Date: 04-19-2019 Planned Disposition: Home Primary Insurance: [facility] MEDICARE SOLUTIONS Discharge Planning Comments: CM MET WITH PT IN ROOM TO DISCUSS DISCHARGE PLANNING AND NEEDS. PT REPORTS LIVING AT HOME DEPENDENTLY WITH HIS SISTER HANDY WHO IS STAYING WITH PT IN PT'S HOME TO CARE FOR PT. . PT HAS ARELI LIFT AND WHEELCHAIR WELL HOME AND PORTABLE OXYGEN FROM [facility]. PT HAS NO OUTSIDE SERVICES ASSISTING IN THE HOME [facility] DECLINED TO ADMIT HIM AND TOLD HIM HE HAS TO BE DOING BETTER FOR HOME HEALTH SERVICES. CM DISCUSSED AVAILABILITY OF HOME HEALTH, REHAB SERVICES AND MEDICAL EQUIPMENT. PT DECLINED JAIL OR REHAB PLACEMENT. PT DENIES DISCHARGE NEEDS, REPORTS HIS SISTER HANDY WILL PICK HIM UP FOR DISCHARGE HOME. PT REPORTS MISSING DIALYSIS BECAUSE HE WENT ON THURSDAY AND THEY DID NOT HAVE A SLING TO USE ON THE LIFT TO PICK HIM UP AT THE DIALYSIS UNIT. PT STATES HE HAS A SLING AT HOME AND FORGOT ABOUT IT. PT REPORTS HIS SISTER USES THE ARELI LIFT TO GET HIM TO THE WHEELCHAIR AND THEY WILL LEAVE THE SLING UNDER HIM FOR DIALYSIS TO USE FROM NOW ON. CHOICE SIGNED FOR [facility] TO VERIFY WITH THEM THAT THEY WILL NOT SEE PT. CM CALLED [facility], , LEFT MESSAGE ASKING FOR THE NURSE TO CALL CM BACK. PT PLANS TO DISCHARGE HOME WITH HIS SISTER, PT REPORTS HIS SISTER WILL PICK HIM UP FOR DISCHARGE HOME. PT DECLINES JAIL, LONG TERM OR REHAB PLACEMENT. Forensic Identification Specialist: Brandin Garcia Appended by Brandin Garcia on 04/19/2019 16:56 CDT: CM RECEIVED CALL FROM JERICA OF [facility] WHO INFORMED CM THAT THEY DID GO FOR THE HOME HEALTH ADMIT AND INFORMED PT AND FAMILY THAT PT NEEDS REHAB AND IS NOT APPROPRIATE FOR HOME HEALTH SERVICES AT THIS TIME. PT PLANS TO DISCHARGE HOME WITH HIS SISTER, PT REPORTS HIS SISTER WILL PICK HIM UP FOR DISCHARGE HOME. PT DECLINES JAIL, LONG TERM OR REHAB PLACEMENT. Forensic Identification Specialist: Brandin Garcia DCPIA - Discharge Planning Initial Assessment Updated by [id number]: Brandin Garcia on 04/22/19 11:13 am * Is the patient Alert and Oriented? Yes * How many steps to enter\\exit or inside your home? NONE * PCP DR. ARACELI ISDHU * Pharmacy [facility] * Preadmission Environment Home with Family * ADLs Partial Dependent * Partial ADLs (Assistance needed) Ambulation Bathing Dressing Medication Management Toileting Transfers * Equipment Areli Lift Oxygen Wheelchair * Other Equipment HOME AND PORTABLE OXYGEN, [facility] * List name and contact numbers for known caregivers / representatives who currently or will assist patient after discharge: HANDY JONES, SISTER [phone] JORGE GORDON, SISTER, CHARLEY PHILLIPS, SON, * Verbal permission to speak to the caregivers and representatives has been obtained from the patient. Yes * Community resources currently utilized None * Please name any agencies selected above. PT HAD INTAKE WITH [facility] FROM [place], ACCORDING TO PT, THEY DECLINED T PROVIDE SERVICES UNTIL HE WAS "DOING BETTER" OUTPATIENT DIALYSIS , TTS, 1000AM, [place]. PT REPORTS HE HAS BEEN DRIVING HIMSELF. * Additional services required to return to the preadmission environment? No * Can the patient safely return to the preadmission environment? Yes * Has this patient been hospitalized within the prior 30 days at any hospital? Yes Coverage Notice Reviewer: [id number] - Deborah Ferris Notice Issued Date-Time: 04/19/2019 9:30 Notice Type: Medicare Outpatient Observation Notice Notice Delivered To: Patient Relationship to Patient: Self Information Technology Security Manager Name: Delivery Method: HAND - Hand Delivered Anusha Days: Prior Verbal Notification: Recipient Understood Notice: Yes Recipient Signature: Yes Med Rec Note Co-signed by Attending: Coverage Notice Comment: Reviewer: LIO Garcia Notice Issued Date-Time: 04/19/2019 12:15 Notice Type: Patient Choice Letter Notice Delivered To: Patient Relationship to Patient: Information Technology Security Manager Name: Delivery Method: HAND - Hand Delivered Anusha Days: Prior Verbal Notification: Recipient Understood Notice: Yes Recipient Signature: Yes Med Rec Note Co-signed by Attending: Coverage Notice Comment: [facility] Reviewer: LIO Garcia Notice Issued Date-Time: 04/21/2019 11:45 Notice Type: IM Discharge Notice Notice Delivered To: Patient Relationship to Patient: Information Technology Security Manager Name: Delivery Method: HAND - Hand Delivered Anusha Days: Prior Verbal Notification: Recipient Understood Notice: Yes Recipient Signature: Yes Med Rec Note Co-signed by Attending: Coverage Notice Comment: Reviewer: LIO Garcia Notice Issued Date-Time: 04/22/2019 16:05 Notice Type: Patient Choice Letter Notice Delivered To: Patient Relationship to Patient: Information Technology Security Manager Name: Delivery Method: HAND - Hand Delivered Anusha Days: Prior Verbal Notification: Recipient Understood Notice: Yes Recipient Signature: Yes Med Rec Note Co-signed by Attending: Coverage Notice Comment: [facility]. Reviewer: LIO Garcia Notice Issued Date-Time: 05/02/2019 12:48 Notice Type: IM Discharge Notice Notice Delivered To: Patient Relationship to Patient: Information Technology Security Manager Name: Delivery Method: HAND - Hand Delivered Anusha Days: Prior Verbal Notification: Recipient Understood Notice: Yes Recipient Signature: Yes Med Rec Note Co-signed by Attending: Coverage Notice Comment: Last DP export: 05/09/19 1:06 Patient Name: ABBY PHILLIPS Page [id number] at [id number] All edits/amendments must be made on the electronic document DICTATION DATE: 05/10/19951 ROUTER MACHINE OPERATOR: APRIL 05/10/19951 RPT#: [id number] DC DATE: STATUS: ADM IN [facility] [address] [place] [address] END OF REPORT
--- NOTE | 2019-05-10 11:44 | NUR ---
PATIENT UNABLE TO CONSUME LUNCH IN DIALYSIS SUITE AND PATIENT IS ON HIS WAY TO DIALYSIS AT THIS TIME. NO INSULIN ADMINISTERED SINCE PATIENT IS UNABLE TO EAT.
--- NOTE | 2019-05-10 13:25 | NUR ---
OT NOTE: MOD ASSIST WITH BED MOB AND ASSIST WITH STATIC SITTING BALANCE; MOD/MAX ASSIST WITH TRANSFER. SIT UP FOR SIMPLE GROOMING TASKS Nigel RICHARD TR/L
--- NOTE | 2019-05-10 13:39 | NUR ---
PATIENT REMAINS IN DIALYSIS AT THIS TIME.
--- NOTE | 2019-05-10 14:26 | NUR ---
Nutrition Follow-up: Pt reports good/fair PO intake; reports >50% of breakfast eaten this AM. Followed by ST who rec puree with nectar thick liquids. Diet: Renal ADA, Puree with [place] Thick Liquids, [place] TID PO intake: 50-75% Wt: 156# Last BM: ~2 days ago per pt Labs noted: Na 133, K+ 5.3, Glu 189, Ca 8.3 Meds noted: Miralax, Humalog -Continue current diet/supplement as tolerated. -RD following.
--- NOTE | 2019-05-10 16:37 | NUR ---
OT NOTE: PT REQUIRED MIN A FOR SUPINE TO SIT. PT COMPLETED BED TO CHAIR TRANSFER WITH ROLLING WALKER WITH MAX A SECONDARY TO PUTTING WT THROUGH HEEL ONLY. PT COMPLETED UE AROM AXS WITH FUNCTIONAL TASKS. PT COMPLETED GROOMING TASK AT EOB WITH MIN/MOD A. THANK YOU,DEISY COTTON
--- NOTE | 2019-05-10 17:08 | NUR ---
FSBS 178. 2 UNITS HUMALOG ADMINISTERED PER SLIDING SCALE. RETURNED FROM DIALYSIS AT 1600 AND CONSUMING PM MEAL AT THIS TIME. NO DISTRESS.
--- NOTE | 2019-05-10 17:09 | MORECARE ---
CASE MANAGEMENT DISCHARGE SUMMARY PATIENT: ABBY PHILLIPS UNIT: [id number] ADM DATE: 04/19/19 AGE: 73 : [birth year] SEX: M ROOM/BED: D.7796 AUTHOR: BYRON,DOC PHYSICIAN: REFERRING PHYSICIAN: SAMUEL COOPER MD DATE OF SERVICE: 05/10/19 Discharge Plan Patient Name: ABBY PHILLIPS Facility[facility] : 1945 Planned Disposition: Intermediate Facility Anticipated Discharge Date: 05/11/19 Discharge Date: Expected LOS: 22 Initial Reviewer: [id number] Initial Review Date: 04/18/2019 Generated: 05/10/19 6:09 pm Comments DCP- Discharge Planning Updated by [id number]: Brandin Garcia on 05/10/19 4:[address] Patient Name: ABBY PHILLIPS Encounter No: [id number] : 1945 Primary Insurance: [facility] MEDICARE SOLUTIONS Anticipated DC Date: 05-11-2019 Planned Disposition: Intermediate Facility External Planned Provider: [facility], MEDICARE REHAB BED DCP follow-up note: CM RECEIVED CALL FROM BETINA OF [facility], , THEY WILL ACCEPT PT, WILL ARRANGE APRN FOR TOMORROW. BETINA WILL NOTIFY PT'S SON VIA PHONE. PT NOTIFIED AND IN AGREEMENT WITH PLAN, IMPORTANT MESSAGE FROM MEDICARE PROVIDED AND EXPLAINED. DR. COOPER INFORMED. [facility] PLANS TO ACCEPT PT 05-11-19; BETINA TO CALL CM WITH NUMBER FOR NURSE REPORT AND VAN APRN TIME. OUTPATIENT DIALYSIS SCHEDULE ARRANGED FOR TTS 1145AM AT [facility] IN [place]. Brandin Garcia, CASE MANAGEMENT DCP- Discharge Planning Updated by [id number]: Brandin Garcia on 05/10/19 8:[address] Patient Name: ABBY PHILLIPS Encounter No: [id number] : 1945 Primary Insurance: [facility] MEDICARE SOLUTIONS Anticipated DC Date: 05-04-2019 Planned Disposition: Intermediate Facility External Planned Provider:[facility], MEDICARE REHAB BED DCP follow-up note: CM RECEIVED CALL ON 05-09-19, PT HAS NEW OUTPATIENT DIALYSIS CLINIC SCHEDULE AT [facility] IN [place], TTS, FIRST APPOINTMENT 05-12-19 AT 1115AM. ON 05-10-19, CM CALLED BETINA OF [facility], , ADVISED OF NEW DIALYSIS SCHEDULE AND START DATE WELL CM FAXING UPDATE FOR REHAB ADMISSION WITH NEW THERAPY EVALUATIONS. CM SPOKE TO PT IN ROOM, PT STILL IN AGREEMENT WITH DISCHARGE TO REHAB AT [facility]. [facility] PLANS TO ACCEPT PT PENDING INSURANCE PRIOR AUTHORIZATION FOR REHAB SERVICES AND WILL BEGIN WORKIING ON INSURANCE PRE AUTHORIZATION FOR REHAB SERVICES TODAY. OUTPATIENT DIALYSIS SCHEDULE ARRANGED FOR TTS 1145AM AT [facility] IN [place]. Brandin Garcia, CASE MANAGEMENT DCP- Discharge Planning Updated by [id number]: Brandin Garcia on 05/09/19 1:[address] Patient Name: ABBY PHILLIPS Encounter No: [id number] : 1945 Primary Insurance: [facility] MEDICARE SOLUTIONS Anticipated DC Date: 05-04-2019 Planned Disposition: Intermediate Facility External Planned Provider: [facility], MEDICARE REHAB BED DCP follow-up note: CM CALLED BETINA OF [facility], , ADVISED THAT CM FAXING UPDATE FOR REHAB ADMISSION. HARSHAL REVIEWED CHART, PT HAS NOT HAD PHYSICAL OR OCCUPATIONAL THERAPY IN ICU OR SINCE MOVING BACK TO [facility] FROM ICU. BETINA REPORTS PT WILL NEED UPDATED PHYSICAL AND OCCUPATIONAL THERAPY NOTES. CM FAXED UPDATE TO [facility] AT [phone]. RENAL COAL PULVERIZING OPERATOR VERÓNICA UPDATED. CM RECEIVED CALL FROM CHARLEY PHILLIPS, SON, , CM PROVIDED UPDATE AND PROVIDED BETINA'S NUMBER ([facility]) [phone]. RN HARSHAL HOUSE LEFT MESSAGE FOR MAKSIM CHILD OF [facility] REQUESTING UPDATE ON OUTPATIENT DIALYSIS UNIT PLACEMENT. [facility] PLANS TO ACCEPT PT PENDING INSURANCE PRIOR AUTHORIZATION FOR REHAB SERVICES AND WILL BEGIN WORKIING ON INSURANCE PRE AUTHORIZATION FOR REHAB SERVICES ONCE NEW PHYSICAL AND OCCUPATIONAL THERAPY NOTES ARE RECEIVED. MAKSIM GUZMAN [facility] IS WORKING ON OUTPATIENT DIALYSIS UNIT AND SCHEDULE THAT WILL ACCOMODATE REHAB TRANSPORTATION SHEDULE. Brandin Garcia CASE MANAGEMENT DCP- Discharge Planning Updated by [id number]: Brandin Garcia on 05/04/19 7:[address] Patient Name: ABBY PHILLIPS Encounter No: [id number] : 1945 Primary Insurance: [facility] MEDIC[facility] SOLUTIONS Anticipated DC Date: 05-04-2019 Planned Disposition: Intermediate Facility External Planned Provider: [facility], MEDICARE REHAB BED DCP follow-up note: CM CALLED BETINA OF [facility], , ADVISED THAT CM FAXING UPDATE FOR REHAB ADMISSION. CM RECEIVED MESSAGE FROM MAKSIM CHILD OF [facility] WHO IS WORKING ON OUTPATIENT DIALYSIS UNIT IN [place]. CM FAXED UPDATE TO THE [facility] AT [phone]. [facility] HAS ACCEPTED PT AND IS WORKIING ON INSURANCE PRE AUTHORIZATION FOR REHAB SERVICES. MAKSIM OF [facility] IS WORKING ON OUTPATIENT DIALYSIS UNIT AND SCHEDULE THAT WILL ACCOMODATE REHAB TRANSPORTATION SHEDULE. Brandin Garcia CASE MANAGEMENT DCP- Discharge Planning Updated by [id number]: Brandin Garcia on 05/04/19 7:[address] Patient Name: ABBY PHILLIPS Encounter No: [id number] : 1945 Primary Insurance: [facility] MED[facility] SOLUTIONS Anticipated DC Date: 05-02-2019 Planned Disposition: Intermediate Facility External Planned Provider: [facility], MEDICARE REHAB BED DCP follow-up note: CM SPOKE TO PT IN ROOM, DISCUSSED OPTIONS FOR REHAB, INFORMED OF DENIALS AND ACCEPTANCE BY [facility]. PT STATES HE WILL GO TO [facility] FOR REHAB AND WOULD LIKE TO GET HOME SOON POSSIBLE. PT STATES HE IS DOING WELL WITH THERAPY AND FEELS HE MAY COULD GO HOME TODAY. CM EXPLAINED HAVING SAFE DISCHARGE AND NOTED PT'S VERY LIMITED ABILITY PER THERAPY NOTES, ENCOURAGED PT TO TAKE ADVANTAGE OF REHAB SERVICES THAT INSURANCE COVERS AT THE [facility]. PT IN AGREEMENT. CM CALLED CHARLEY PHILLIPS, , ADVISED CHARLEY OF ABOVE INFORMATION. CHARLEY IN AGREEMENT WITH THE [facility] AND DOES NOT WANT TO HOLD PLACEMENT FOR REHAB UP ANY LONGER. CHARLEY DOES NOT FEEL THAT PT IS SAFE TO DISCHARGE HOME AT THIS POINT AND NEEDS THE REHAB. CM CALLED BETINA OF THE [facility], , ADVISED THAT PT AND FAMILY IN AGREEMENT WITH REHAB AT [facility]. BETINA ADVISED THAT THE FACILITY WOULD PREFER AN EARLY DIALYSIS TIME, DAY IS NOT IMPORTANT, THEY WILL NOT TRANSPORT AFTER 5PM. CM NOTIFIED MAKSIM ALBRIGHTANN OF [facility] WHO WILL SEEK OUTPATIENT DIALYSIS UNIT IN [place]. PT NOTIFIED, IMPORTANT MESSAGE FROM MEDICARE PROVIDED AND EXPLAINED. [facility] HAS ACCEPTED PT AND IS WORKIING ON INSURANCE PRE AUTHORIZATION FOR REHAB SERVICES. MAKSIM OF [facility] IS WORKING ON OUTPATIENT DIALYSIS UNIT AND SCHEDULE THAT WILL [facility] Brandin Garcia, CASE MANAGEMENT DCP- Discharge Planning Updated by [id number]: Brandin Garcia on 05/02/19 10:[address] Patient Name: ABBY PHILLIPS Encounter No: [id number] : 1945 Primary Insurance: [facility] MED[facility] SOLUTIONS Anticipated DC Date: 05-02-2019 Planned Disposition: Intermediate Facility External Planned Provider: [facility], MEDICARE REHAB BED DCP follow-up note: CM RECEIVED CALL FROM [facility], , WAS ADVISED THEY ARE "PACKED" WITH NO BEDS AVAILABLE. CM RECEIVED CALL FROM BETINA OF [facility] [phone], WHO INFORMED CM THAT CLINICALLY, THEY WILL ACCEPT AND WILL ROZ FOR PRIOR AUTHORIZATION FROM PT'S INSURANCE FOR REHAB; BETINA WILL CALL CM SHORTLY REGARDING DIALYSIS UNIT PLACEMENT SCHEDULE NEEDS. BETINA WILL ALSO CALL PT'S SON. BETINA OF THE [facility], , CALLED, SHE HAS SPOKEN TO CHARLEY WHO DELINED PLACEMENT AT THE [facility] AND WANTS PLACEMENT AT [facility] OR [facility] [place]. CM CALLED CHARLEY PHILLIPS AT [phone], LEFT MESSAGE ASKING FOR IMMEDIATE RETURN CALL. PT [facility] [place] [facility]; PT HAS BEEN ACCEPTED CLINICALLY BY THE [facility] FOR REHAB PLACEMENT. PT'S FAMILY HAS CANCELLED PLACEMENT; CM WAITING ON RETURN CALL FROM CHARLEY PHILLIPS, PT'S SON. Brandin Garcia, CASE MANAGEMENT DCP- Discharge Planning Updated by [id number]: Brandin Garcia on 05/02/19 8:[address] Patient Name: ABBY PHILLIPS Encounter No: [id number] : 1945 Primary Insurance: [facility] MED[facility] SOLUTIONS Anticipated DC Date: 05-02-2019 Planned Disposition: Intermediate Facility External Planned Provider: [facility], MEDICARE REHAB BED DCP follow-up note: CM FAXED UPDATE TO [facility] AT [phone]. CM CALLED [facility], , WAS ADVISED BY ISAIAH THAT ADMISSIONS STAFF WERE IN THEIR MORNING MEETING; CM LEFT MESSAGE ASKING FOR UPDATE ON REHAB REFERRAL WITH CM CONTACT INFORMATION. CM FAXED REFERRAL UDPATE FOR THE [facility] AT [phone]. BETINA OF THE [facility], , WILL SCREEN PT FOR REHAB ADMISSION, TODAY, , TO ASSESS PT FOR ADMISSION; THE [facility] IS IN NETWORK WITH PT'S INSURANCE.. PT HAS BEEN DECLINED BY THE [facility]; CM WAITING ADMISSION DETERMINATIONS FROM [facility] AND [facility] FOR REHAB PLACEMENT. IF ACCEPTED AT EITHER FACILITY, CM WILL REQUEST CHANGE OF OUTPATIENT DIALYSIS UNIT. Brandin Garcia, CASE MANAGEMENT DCP- Discharge Planning Updated by [id number]: Brandin Garcia on 04/29/19 2:[address] Patient Name: ABBY PHILLIPS Encounter No: [id number] : 1945 Primary Insurance: [facility] MED[facility] SOLUTIONS Anticipated DC Date: 05-02-2019 Planned Disposition: Intermediate Facility External Planned Provider: [facility], MEDICARE REHAB BED DCP follow-up note: CM RECEIVED CALL FROM PRASHANTH OF THE [facility], THEY WILL NOT ACCEPT ANOTHER DIALYSIS PATIENT AT THIS TIME. CM CALLED [facility], , WAS ADVISED THAT ADMISSIONS STAFF WERE IN MEETING; CM LEFT MESSAGE ASKING FOR UPDATE ON REHAB REFERRAL WITH CM CONTACT INFORMATION. CM CALLED AND SPOKE TO BETINA OF [facility], ; BETINA INFORMED CM THAT SHE HAS SEVERAL HOMES IN THE [facility] AND WILL SCREEN PT FOR REHAB ADMISSION, SHE WILL PERSONALLY COME TO HOSPITAL ON THURSDAY, , TO ASSESS PT FOR ADMISSION; THE [facility] IS IN NETWORK WITH PT'S INSURANCE. CM FAXED REFERRAL FOR THE [facility] AT [phone]. CM UPDATED PT WHO REPORTS WANTING REHAB PLACEMENT IN [place] CLOSE TO HIS SON POSSIBLE. CM UPDATE DR. COOPER VIA PHONE. DR. COOPER ADVISED THAT PT IS READY TO DISCHARGE TO REHAB WHEN ACCEPTED. PT HAS BEEN DECLINED BY THE [facility]; CM WAITING ADMISSION DETERMINATIONS FROM [facility] AND [facility] FOR REHAB PLACEMENT. IF ACCEPTED AT EITHER FACILITY, CM WILL REQUEST CHANGE OF OUTPATIENT DIALYSIS UNIT. Brandin Garcia CASE MANAGEMENT DCP- Discharge Planning Updated by [id number]: Brandin Garcia on 04/29/19 6:[address] Patient Name: ABBY PHILLIPS Encounter No: [id number] : 1945 Primary Insurance: [facility] MED[facility] SOLUTIONS Anticipated DC Date: 04-21-2019 Planned Disposition: Intermediate Facility External Planned Provider:[facility] OR [facility] [place], MEDICARE REHAB BED DCP follow-up note: CM REVIEWED CHART, PT DID PARTICIPATE WITH THERAPY ON 04-27-19 AND 04-28-19. PT HAS DEMONSTRATED ABILITY TO TRANSFER AND SIT IN CHAIR FOR THREE OR MORE HOURS. CM FAXED REFERRAL UPDATE TO [facility] AT [phone]. AND THE [facility] AT [phone]. CM WAITING ADMISSION DETERMINATIONS FROM [facility] AND THE [facility]. IF EITHER FACLITY WILL ACCEPT, CM WILL REQUEST CHANGE OF DIALYSIS UNIT. PT'S INSURANCE ALSO REQUIRES PRIOR AUTHORIZATION FOR REHAB PLACEMENT. Brandin Garcia CASE MANAGEMENT DCP- Discharge Planning Updated by [id number]: Brandin Garcia on 04/28/19 6:[address] Patient Name: ABBY PHILLIPS Encounter No: [id number] : 1945 Primary Insurance: [facility] MED[facility] SOLUTIONS Anticipated DC Date: 04-21-2019 Planned Disposition: Intermediate Facility External Planned Provider: [facility] OR [facility] IN [place], MEDICARE REHAB BED DCP follow-up note: CM REVIEWED CHART, PT DID PARTICIPATE WITH THERAPY ON 04-27-19. PT DID SIT UP IN CHAIR FOR THREE OR MORE HOURS. CM FAXED REFERRAL UPDATE TO [facility] AT [phone]. AND THE [facility] AT [phone]. CM WAITING ADMISSION DETERMINATIONS FROM [facility] AND THE [facility]. IF EITHER FACLITY WILL ACCEPT, CM WILL REQUEST CHANGE OF DIALYSIS UNIT. PT'S INSURANCE ALSO REQUIRES PRIOR AUTHORIZATION FOR REHAB PLACEMENT. SELENA Escobedo MANAGEMENT DCP- Discharge Planning Updated by [id number]: Brandin Garcia on 04/27/19 11:[address] Patient Name: ABBY PHILLIPS Encounter No: [id number] : 1945 Primary Insurance: [facility] MED[facility] SOLUTIONS Anticipated DC Date: 04-21-2019 Planned Disposition: Intermediate Facility External Planned Provider: [facility] IN [place], MEDICARE REHAB BED DCP follow-up note: CM REVIEWED CHART, PT DID NOT PARTICIPATE WITH THERAPY ON 04-26-19. CM MET WITH PT IN ROOM TO DISCUSS DISCHARGE PLANNING AND NEEDS. PT DOES NOT WANT PRISON CARE OR HOSPICE. PT INSISTS THAT HE WANTS REHAB SERVICES. CM EXPLAINED THAT PT HAS TO PARTICIPATE FULLY WITH THERAPY EACH TIME OFFERED INSURANCE WILL NOT PAY FOR REHAB SERVICES WITHOUT PARTICIPATION WITH OFFERED THERAPY. PT REPORTS UNDERSTANDING. PT PROMISES TO PARTICIPATE WITH THERAPY SERVICES AND UNDERSTANDS THAT HE MUST SIT UP IN CHAIR FOR THREE OR MORE HOURS TO SHOW HE CAN GO TO OUTPATIENT DIALYSIS. CM RECEIVED CALL FROM MATILDA OF [facility] WHO WILL FOLLOW, BUT WILL ONLY CONSIDER IF PT IS PARTICIPATING WITH THERAPY. CM TO FAX REFERRAL UPDATE ST[facility] AT [phone]. AND THE [facility] AT [phone], ONCE NEW THERAPY NOTES ARE DOCUMENTED ON 04-27. CM WAITING ADMISSION DETERMINATIONS FROM [facility] AND THE [facility]. IF EITHER FACLITY WILL ACCEPT, CM WILL REQUEST CHANGE OF DIALYSIS UNIT. PT'S INSURANCE ALSO REQUIRES PRIOR AUTHORIZATION FOR REHAB PLACEMENT. SELENA Escobedo DCP- Discharge Planning Updated by [id number]: Brandin Garcia on 04/26/19 8:[address] Patient Name: ABBY PHILLIPS Encounter No: [id number] : 1945 Primary Insurance: [facility] MED[facility] SOLUTIONS Anticipated DC Date: 04-21-2019 Planned Disposition: Intermediate Facility External Planned Provider:[facility] OR [facility] IN [place], MEDICARE REHAB BED DCP follow-up note: CM FAXED REFERRALUPDATE TO [facility] AT [phone]. CM FAXED REFERRAL UDPATE FOR THE [facility] TO PRASHANTH AT [phone]. CM TO DISCUSS WITH REHAB TODAY THAT PT NEEDS TO HAVE DEMONSTRATED ABILITY TO SIT FOR THREE OR MORE HOURS IN CHAIR FOR OUTPATIENT DIALYSIS. CM WAITING ADMISSION DETERMINATIONS FROM [facility] AND THE [facility]. SELENA Escobedo MANAGEMENT DCP- Discharge Planning Updated by [id number]: Brandin Garcia on 04/25/19 1:[address] Patient Name: ABBY PHILLIPS Encounter No: [id number] : 1945 Primary Insurance: [facility] SOLUTIONS Anticipated DC Date: 04-21-2019 Planned Disposition: Intermediate Facility External Planned Provider: [facility] OR [facility] [place], MEDICARE REHAB BED DCP follow-up note: CM RECEIVED CALL FROM CHARLEY JACQUELINE, PT'S SON, WHO ASKED WHAT IS TAKING SO LONG TO GET PT INTO REHAB IN [place]. CM EXPLAINED PLACEMENT PROCESS, INSURANCE APPROVAL TIME FRAME AND ALSO THE PROCESS OF HAVING TO GET ACCEPTING DIALYSIS UNIT IF CM CAN GET FACILITY TO ACCEPT PT. CHARLEY REPORTS UNDERSTANDING. CM CALLED [facility], , SPOKE TO SYD WHO INFORMED CM THAT SHE DID NOT GET THE REFERRAL. CM CONFIRMED FAX NUMBER, REVIEWED AND FOUND FAX CONFIRMATION FROM THURSDAY. CM FAXED REFERRAL AND UPDATE TO [facility] AT [phone]. CM SPOKE PRASHANTH OF THE [facility], , SHE WILL CALL [facility] AND GET UPDATE SHE HAS NOT "HEARD A WORD". CM FAXED REFERRAL UDPATE FOR THE [facility] TO PRASHANTH AT [phone]. CM WAITING ADMISSION DETERMINATIONS FROM [facility] AND THE [facility]. Brandin Garcia CASE MANAGEMENT DCP- Discharge Planning Updated by [id number]: Brandin Garcia on 04/22/19 10:[address] Patient Name: ABBY PHILLIPS Encounter No: [id number] : 1945 Primary Insurance: [facility] MED[facility] SOLUTIONS Anticipated DC Date: 04-21-2019 Planned Disposition: Intermediate Facility External Planned Provider: [facility] [place], MEDICARE REHAB BED DCP follow-up note: CM SPOKE TO PT IN ROOM REGARDING DISCHARGE PLANNING. PT WILL GO TO REHAB IN [place] SO HE WILL BE CLOSE TO HIS SON. PT ASKED CM TO HURRY UP HE IS TIRED OF BEING IN THE HOSPITAL. CM EXPLAINED TO PT THAT IF HE WOULD HAVE DECIDED SOONER, CM WOULD HAVE ALREADY BEEN WORKING ON REHAB PLACEMENT. PT SIGNED CONSENT FOR [facility] SUGGESTED BY HIS SON AND FOR ANY PRISON REHAB IN [place]. CM EXPLAINED TO PT THAT HIS INSURANCE MAY TAKE SEVERAL DAYS TO APPROVE OR DECLINE REHAB SERVICES AND THAT CM WILL HAVE TO FIND A FACILITY THAT WILL TRANSPORT TO DIALYSIS AND IF ALL OF THAT IS DONE, CM WILL HAVE TO REQUEST A NEW DIALYSIS UNIT. PT REPORTS UNDERSTANDING. CM CALLED [facility], , SPOKE TO KAVIN WHO WILL SCREEN FOR ADMISSION. CM FAXED REFERRAL TO [facility] AT [phone]. CM NOTIFIED PRASHANTH OF THE [facility], , OF REFERRAL. CM FAXED REFERRAL FOR THE [facility] TO PRASHANTH AT [phone]. CM WAITING ADMISSION DETERMINATIONS FROM [facility] AND [facility]. Brandin Garcia, CASE MANAGEMENT DCP- Discharge Planning Updated by [id number]: Brandin Garcia on 04/21/19 4:[address] Patient Name: ABBY PHILLIPS Encounter No: [id number] : 1945 Primary Insurance: [facility] MED[facility] SOLUTIONS Anticipated DC Date: 04-21-2019 Planned Disposition: Intermediate Facility External Planned Provider: [facility] OR OTHER PRISON IN [place] DCP follow-up note: CM RECEIVED CALL FROM CHARLEY JACQUELINE, PT'S SON, WHO REPORTS THAT HE HAS TALKED TO PT VIA PHONE AND PT IS NOW AGREEING TO GO TO PRISON REHAB IN [place], CLOSE TO HIS SON. CM ATTEMPTED TO SEE PT WHO WAS OUT OF ROOM AT APPROXIMATELY 1345 HOURS. CM WILL SPEAK TO PT SOON POSSIBLE REGARDING PRISON REHAB IN [place] AND SEND REFERRALS IF PT WILL SIGN THE CONSENT. Brandin Garcia, CASE MANAGEMENT DCP- Discharge Planning Updated by [id number]: Brandin Garcia on 04/21/19 11:[address] Patient Name: ABBY PHILLIPS Encounter No: [id number] : 1945 Primary Insurance: [facility] MEDIC[facility] SOLUTIONS Anticipated DC Date: 04-21-2019 Planned Disposition: Left Against Medical Advice DCP follow-up note: CM SPOKE TO BEDSIDE NURSE WHO REPORTS PT'S SISTER, JORGE, CALLED AND STATES SHE WILL NOT BE PICKING PT UP FOR TRANSPORT HOME. CM MET WITH PT IN ROOM TO DISCUSS DISCHARGE PLANNING AND NEEDS. PT REPORTS STILL PLANNING TO LEAVE WHEN HE FINDS A RIDE. CM EXPLAINED THAT PT'S FAMILY MEMBERS ARE CALLING AND INFORMING HOSPITAL STAFF THEY ARE NOT PICKING UP PT. PT STATES HE HAS FRIENDS THAT ARE GOING TO HELP. CM PROVIDED PT WITH MEDICARE WEBSITE RESULTS FOR PRISON REHABS WITHIN 50 MILES OF HIS HOME. CM EXPLAINED THAT [facility] WILL NOT ACCEPT PT BACK AND THAT IF PT CHANGES HIS MIND AND DECIDES TO GO TO REHAB, CM WILL NEED PT'S TOP TWO SELECTIONS AND SIGNATURE ON THE CHOICE FORM. IMPORTANT MESSAGE FROM MEDICARE PROVIDED AND EXPLAINED. PT ASKED CM TO CALL ADAM SANCHES, PHARMACIST AT [facility] TO HAVE HER , JOHN SANCHES, CALL PT. CM CALLED AND WAS ADVISED BY ADAM THAT AGUSTIN SPOKE TO PT YESTERDAY AND SHE WILL LET HER KNOW THAT PT WANTS TO TALK TO HIM AGAIN. CM STILL REFUSING PRISON FACLITY PLACEMENT. CM WAITING ON PT TO DEVELOP TRANSPORTATION HOME. IF TRANSPORTATION IS VERIFIED, CALL JEANNIE, , WILL HAS AGREED TO ARRANGE PORTABLE OXGYEN TO HOSPITAL FOR PT TO LEAVE HOSPITAL. CM TO CONTINUE TO FOLLOW AND ASSIST NEEDED. Manager Hardware: Brandin Garcia DCP- Discharge Planning Updated by [id number]: Brandin Garcia on 04/21/19 8:[address] Patient Name: ABBY PHILLIPS Encounter No: [id number] : 1945 Primary Insurance: [facility] MED[facility] SOLUTIONS Anticipated DC Date: 04-21-2019 Planned Disposition: Left Against Medical Advice DCP follow-up note: CM SPOKE TO HERIBERTO SANCHES REGARDING PT'S DISCHARGE PLAN. TREATMENT TEAM CONCERNED THAT PT DOES NOT HAVE SAFE DISCHARGE PLAN. CM MET WITH HERIBERTO SANCHES WITH PT IN ROOM. PT INSISTS THAT HE WILL GO HOME, JOHN SANCHES, , WILL PICK HIM UP. PT REPORTS ALEXSANDRA LOPEZ, A FRIEND FROM [place] WILL ASSIST WITH CARING FOR PT IN HOME AND ASSIST WITH GETTING TO AND FROM DIALYSIS. PT REPORTS HE NORMALLY DRIVES HIMSELF TO AND FROM DIALYSIS AND IS ABLE TO TRANSFER HIMSELF TO A WHEELCHAIR, GET TO HIS CAR, GET THE WHEELCHAIR INTO THE TRUCK OF THE CAR AND THEN WALK TO AND GET INTO THE DRIVERS SEAT HOLDING ON TO THE CAR. PT REPORTS HAVING ELECTRIC AND MANUAL WHEELCHAIR AND IS ABLE TO TRANSFER HIMSELF FROM BED TO CHAIR AND CHAIR TO BED. PT DOES NOT KNOW THE NUMBER TO HIS FRIEND ALEXSANDRA, TO VERIFY HE WILL ASSIST AFTER DISCHARGE. PT REPORTS HIS SISTER HANDY LIVES IN HIS HOUSE AND HAS FOR FOUR MONTHS. CM ADVISED THAT FAMILY INFORMED STAFF HERE THAT PT NEEDS NURSING REHAB. PT REPORTS THAT HIS FAMILY IS WANTING TO KEEP HIM AWAY AND IN THE [facility]. HERIBERTO SANCHES ADVISED THAT PT MUST HAVE A SAFE AND VERIFIABLE PLAN TO DISCHARGE HOME. CM ATTEMPTED TO CALL JOHN SANCHES, ; THERE WAS NO ANSWER AND NO MESSAGE MACHINE. CM CALLED [facility], , SPOKE TO LIGHT TRUCK DRIVER RAYNE WHO INFORMED CM THAT THEY CAN DELIVER PORTABLE OXYGEN TO PT'S ROOM FOR DISCHARGE IF NEEDED. HARSHAL SPOKE TO PT IN ROOM, HERIBERTO SANCHES WAS IN ROOM SPEAKING TO PT. PT STATES HE IS LEAVING "AMA". HERIBERTO SANCHES INFORMED PT THAT PT MUST HAVE A PERSON TO VERIFY THEY ARE TRANSPORTING PRIOR TO ANY AMA FORMS BEING PRESENTED. CM ADVISED PT IF HE IS ABLE TO VERIFY TRANSPORATATION BY CM SPEAKING TO THAT PERSON AND THEY AGREE TO APRN PT, CM WILL ASK JEANNIE TO DELIVER PORTABLE OXYGEN TO ROOM. CM ASKED THAT IF PT CHANGES HIS MIND AND DECIDES TO GO TO PRISON REHAB, TO PLEASE NOTIFY CM AND CM WILL BE GLAD TO ASSIST WITH PLACEMENT. PT DECLINED. CM WAITING ON PT TO DEVELOP TRANSPORTATION HOME. IF TRANSPORTATION IS VERIFIED, CALL JEANNIE, , WILL HAS AGREED TO ARRANGE PORTABLE OXGYEN TO [facility]AVE HOSPITAL. CM TO CONTINUE TO FOLLOW AND ASSIST NEEDED. Manager Hardware: Brandin [place] DCP- Discharge Planning Updated by [id number]: Brandin Garcia on 04/20/19 1:[address] Patient Name: ABBY PHILLIPS Encounter No: [id number] : 1945 Primary Insurance: [employer] MEDICARE SOLUTIONS Anticipated DC Date: 04-19-2019 Planned Disposition: Home DCP follow-up note: CM MET WITH PT IN ROOM AND ENCOURAGED PT TO GO TO REHAB PRIOR TO DISCHARGE HOME. PT CONTINUES TO REFUSE AND REPORTS HIS SISTER WILL PICK HIM UP FOR DISCHARGE HOME. PT STATES HE MAY NEED OXYGEN FROM [facility] AGAIN TO GO HOME. CM EXPLAINED THAT IF HIS SISTER IS PICKING HIM UP AND SHE IS STAYING WITH PT IN PT'S HOME, SHE SHOULD BRING OXYGEN WITH HER. PT WILL REQUEST HIS SISTER BRING OXYGEN WITH HER. CM RECEIVED CALL FROM MIRIAM GORDON, , WHO INFORMED CM THAT PT HAS BEEN CALLING STATING HE IS GOING TO BE DISCHARGED TODAY AND NEEDS A RIDE HOME. JORGE STATES PT NEEDS TO GO BACK TO NURSING FACILITY FOR REHAB AND NOT HOME. CM EXPLAINED THAT CM CANNOT MAKE PT DO SOMETHING AGAINST PT'S WILL AND THAT IF PT IS NOT DEEMED INCOMPETENT BY A PHYSICIAN OR COURT, PT CAN MAKE BAD DECISIONS FOR HIMSELF. CM EXPLAINED HOW TO FILE FOR GUARDIANSHIP OF A PERSON AND THAT THIS WOULD HAVE TO BE GRANTED FOR ANYONE TO MAKE PT DO SOMETHING AGAINST HIS WILL. JORGE REPORTS UNDERSTANDING. PT PLANS TO DISCHARGE HOME WITH HIS SISTER, PT REPORTS HIS SISTER WILL PICK HIM UP FOR DISCHARGE HOME. PT DECLINES [facility], PR[facility] OR REHAB PLACEMENT. PATIENT IS NOT APPROPRIATE FOR HOME HEALTH PER [facility]. Manager Hardware: Brandin Garcia DCP- Discharge Planning Updated by [id number]: Brandin Garcia on 04/19/19 3:[address] Patient Name: ABBY PHILLIPS Admission Status: ER Accout number: [id number] Admission Date: 04-19-2019 : 1945 Admission Diagnosis: Attending: SAMUEL COOPER Current LOS: 1 Anticipated DC Date: 04-19-2019 Planned Disposition: Home Primary Insurance: [facility] MEDICARE SOLUTIONS Discharge Planning Comments: CM MET WITH PT IN ROOM TO DISCUSS DISCHARGE PLANNING AND NEEDS. PT REPORTS LIVING AT HOME DEPENDENTLY WITH HIS SISTER HANDY WHO IS STAYING WITH PT IN PT'S HOME TO CARE FOR PT. . PT HAS [facility] LIFT [facility] WHEELCHAIR WELL HOME AND PORTABLE OXYGEN FROM [facility]. PT HAS NO OUTSIDE SERVICES ASSISTING IN THE HOME [facility] DECLINED TO ADMIT HIM AND TOLD HIM HE HAS TO BE DOING BETTER FOR HOME HEALTH SERVICES. CM DISCUSSED AVAILABILITY OF HOME HEALTH, REHAB SERVICES AND MEDICAL EQUIPMENT. PT DECLINED [facility] OR REHAB PLACEMENT. PT DENIES DISCHARGE NEEDS, REPORTS HIS SISTER HANDY WILL PICK HIM UP FOR DISCHARGE HOME. PT REPORTS MISSING DIALYSIS BECAUSE HE WENT ON THURSDAY AND THEY DID NOT HAVE A SLING TO USE ON THE LIFT TO PICK HIM UP AT THE DIALYSIS UNIT. PT STATES HE HAS A SLING AT HOME AND FORGOT ABOUT IT. PT REPORTS HIS SISTER USES THE [employer] LIFT TO GET HIM TO THE WHEELCHAIR AND THEY WILL LEAVE THE SLING UNDER HIM FOR DIALYSIS TO USE FROM NOW ON. CHOICE SIGNED FOR [facility] TO VERIFY WITH THEM THAT THEY WILL NOT SEE PT. CM CALLED [facility], , LEFT MESSAGE ASKING FOR THE NURSE TO CALL CM BACK. PT PLANS TO DISCHARGE HOME WITH HIS SISTER, PT REPORTS HIS SISTER WILL PICK HIM UP FOR DISCHARGE HOME. PT DECLINES [facility], PRISON OR REHAB PLACEMENT. Manager Hardware: Brandin Garcia Appended by Brandin Garcia on 04/19/2019 16:56 CDT: CM RECEIVED CALL FROM JERICA OF [facility] WHO INFORMED CM THAT THEY DID GO FOR THE HOME HEALTH ADMIT AND INFORMED PT AND FAMILY THAT PT NEEDS REHAB AND IS NOT APPROPRIATE FOR HOME HEALTH SERVICES AT THIS TIME. PT PLANS TO DISCHARGE HOME WITH HIS SISTER, PT REPORTS HIS SISTER WILL PICK HIM UP FOR DISCHARGE HOME. PT DECLINES [facility], PRISON OR REHAB PLACEMENT. Manager Hardware: Brandin Garcia DCPIA - Discharge Planning Initial Assessment Updated by [id number]: Brandin Garcia on 04/22/19 11:13 am * Is the patient Alert and Oriented? Yes * How many steps to enter\\exit or inside your home? NONE * PCP DR. ARACELI SIDHU * [facility] * Preadmission Environment Home with Family * ADLs Partial Dependent * Partial ADLs (Assistance needed) Ambulation Bathing Dressing Medication Management Toileting Transfers * Equipment [employer] Lift Oxygen Wheelchair * Other Equipment HOME AND PORTABLE OXYGEN, [facility] * List name and contact numbers for known caregivers / representatives who currently or will assist patient after discharge: HANDY JONES SISTER [phone] JORGE GORDON, SISTER, CHARLEY PHILLIPS, SON, * Verbal permission to speak to the caregivers and representatives has been obtained from the patient. Yes * Community resources currently utilized None * Please name any agencies selected above. PT HAD INTAKE WITH [facility] FROM [place], ACCORDING TO PT, THEY DECLINED T PROVIDE SERVICES UNTIL HE WAS "DOING BETTER" OUTPATIENT DIALYSIS , [facility], [facility], [place]. PT REPORTS HE HAS BEEN DRIVING HIMSELF. * Additional services required to return to the preadmission environment? No * Can the patient safely return to the preadmission environment? Yes * Has this patient been hospitalized within the prior 30 days at any hospital? Yes Coverage Notice Reviewer: [id number] Skylar Augustin Notice Issued Date-Time: 04/19/2019 9:30 Notice Type: Medicare Outpatient Observation Notice Notice Delivered To: Patient Relationship to Patient: Self Programming Instructor Name: Delivery Method: HAND - Hand Delivered Anusha Days: Prior Verbal Notification: Recipient Understood Notice: Yes Recipient Signature: Yes Med Rec Note Co-signed by Attending: Coverage Notice Comment: Reviewer: [id number] Garcia Notice Issued Date-Time: 04/19/2019 12:15 Notice Type: Patient Choice Letter Notice Delivered To: Patient Relationship to Patient: Programming Instructor Name: Delivery Method: HAND - Hand Delivered Anusha Days: Prior Verbal Notification: Recipient Understood Notice: Yes Recipient Signature: Yes Med Rec Note Co-signed by Attending: Coverage Notice Comment: [employer] [facility] Reviewer: [id number] Skylar Garcia Notice Issued Date-Time: 04/21/2019 11:45 Notice Type: IM Discharge Notice Notice Delivered To: Patient Relationship to Patient: Programming Instructor Name: Delivery Method: HAND - Hand Delivered Anusha Days: Prior Verbal Notification: Recipient Understood Notice: Yes Recipient Signature: Yes Med Rec Note Co-signed by Attending: Coverage Notice Comment: Reviewer: [id number] Garcia Notice Issued Date-Time: 04/22/2019 16:05 Notice Type: Patient Choice Letter Notice Delivered To: Patient Relationship to Patient: Programming Instructor Name: Delivery Method: HAND - Hand Delivered Anusha Days: Prior Verbal Notification: Recipient Understood Notice: Yes Recipient Signature: Yes Med Rec Note Co-signed by Attending: Coverage Notice Comment: [facility]. Reviewer: [id number] Skylar Garcia Notice Issued Date-Time: 05/02/2019 12:48 Notice Type: IM Discharge Notice Notice Delivered To: Patient Relationship to Patient: Programming Instructor Name: Delivery Method: HAND - Hand Delivered Anusha Days: Prior Verbal Notification: Recipient Understood Notice: Yes Recipient Signature: Yes Med Rec Note Co-signed by Attending: Coverage Notice Comment: Reviewer: [id number] Skylar Garcia Notice Issued Date-Time: 05/10/2019 17:00 Notice Type: IM Discharge Notice Notice Delivered To: Patient Relationship to Patient: Programming Instructor Name: Delivery Method: HAND - Hand Delivered Anusha Days: Prior Verbal Notification: Recipient Understood Notice: Yes Recipient Signature: Yes Med Rec Note Co-signed by Attending: Coverage Notice Comment: Last DP export: 05/10/19 8:52 Patient Name: ABBY PHILLIPS Page [id number] at 1709 All edits/amendments must be made on the electronic document DICTATION DATE: 05/10/191707 PARIMUTUEL TICKET CHECKER: APRIL 05/10/191707 RPT#: [id number] DC DATE: STATUS: ADM IN [facility] [address] [place] [address] END OF REPORT
--- NOTE | 2019-05-10 18:00 | NUR ---
MEDICATED UPON REQUEST FOR CONSTIPATION. NO DISTRESS.
--- NOTE | 2019-05-10 19:23 | NUR ---
PT AT REST WITH EYES CLOSED SKIN WARM AND DRY RESP NONLABOREDE SRX2 AND BED IS LOW AND LOCKED
[2019-05-10 20:00] VITALS: BP 184/54
[2019-05-11] VITALS: BP 158/50
[2019-05-11 04:00] VITALS: BP 150/74
--- NOTE | 2019-05-11 04:24 | NUR ---
PT IS REFUSING BLOOD WORK THIS AM
--- NOTE | 2019-05-11 07:10 | MORECARE ---
CASE MANAGEMENT DISCHARGE SUMMARY PATIENT: ABBY PHILLIPS UNIT: [id number] ADM DATE: 04/19/19 AGE: 73 : [birth year] SEX: M ROOM/BED: D.0676 AUTHOR: BYRON,DOC PHYSICIAN: REFERRING PHYSICIAN: SAMUEL COOPER MD DATE OF SERVICE: 05/11/19 Discharge Plan Patient Name: ABBY PHILLIPS Facility: [facility]:[place] : 1945 Planned Disposition: Jail Facility Anticipated Discharge Date: 05/11/19 Discharge Date: Expected LOS: 22 Initial Reviewer: [id number] Initial Review Date: 04/18/2019 Generated: 05/11/19 8:10 am Comments DCP- Discharge Planning Updated by [id number]: Brandin Garcia on 05/10/19 4:[address] Patient Name: ABBY PHILLIPS Encounter No: [id number] : 1945 Primary Insurance: [facility] MEDICARE SOLUTIONS Anticipated DC Date: 05-11-2019 Planned Disposition: Jail Facility External Planned Provider: [facility], MEDICARE REHAB BED DCP follow-up note: CM RECEIVED CALL FROM BETINA OF [facility], , THEY WILL ACCEPT PT, WILL ARRANGE COMMUNITY RELATIONS POLICE LIEUTENANT FOR TOMORROW. BETINA WILL NOTIFY PT'S SON VIA PHONE. PT NOTIFIED AND IN AGREEMENT WITH PLAN, IMPORTANT MESSAGE FROM MEDICARE PROVIDED AND EXPLAINED. DR. COOPER INFORMED. [facility] PLANS TO ACCEPT PT 05-11-19; BETINA TO CALL CM WITH NUMBER FOR NURSE REPORT AND VAN COMMUNITY RELATIONS POLICE LIEUTENANT TIME. OUTPATIENT DIALYSIS SCHEDULE ARRANGED FOR TTS 1145AM [facility] [place]. Brandin Garcia, CASE MANAGEMENT DCP- Discharge Planning Updated by [id number]: Brandin Garcia on 05/10/19 8:[address] Patient Name: ABBY PHILLIPS Encounter No: [id number] : 1945 Primary Insurance: [facility] MEDICARE SOLUTIONS Anticipated DC Date: 05-04-2019 Planned Disposition: Jail Facility External Planned Provider:[facility], MEDICARE REHAB BED DCP follow-up note: CM RECEIVED CALL ON 05-09-19, PT HAS NEW OUTPATIENT DIALYSIS CLINIC SCHEDULE AT [facility] [place], TTS, FIRST APPOINTMENT 05-12-19 AT 1115AM. ON 05-10-19, CM CALLED BETINA OF [facility], , ADVISED OF NEW DIALYSIS SCHEDULE AND START DATE WELL CM FAXING UPDATE FOR REHAB ADMISSION WITH NEW THERAPY EVALUATIONS. CM SPOKE TO PT IN ROOM, PT STILL IN AGREEMENT WITH DISCHARGE TO REHAB AT [facility]. [facility] PLANS TO ACCEPT PT PENDING INSURANCE PRIOR AUTHORIZATION FOR REHAB SERVICES AND WILL BEGIN WORKIING ON INSURANCE PRE AUTHORIZATION FOR REHAB SERVICES TODAY. OUTPATIENT DIALYSIS SCHEDULE ARRANGED FOR TTS 1145AM [facility] [place]. Brandin Garcia, CASE MANAGEMENT DCP- Discharge Planning Updated by [id number]: Brandin Garcia on 05/09/19 1:[address] Patient Name: ABBY PHILLIPS Encounter No: [id number] : 1945 Primary Insurance: [facility] MEDICARE SOLUTIONS Anticipated DC Date: 05-04-2019 Planned Disposition: Jail Facility External Planned Provider: [facility], MEDICARE REHAB BED DCP follow-up note: CM CALLED BETINA OF [facility], , ADVISED THAT CM FAXING UPDATE FOR REHAB ADMISSION. HARSHAL REVIEWED CHART, PT HAS NOT HAD PHYSICAL OR OCCUPATIONAL THERAPY IN ICU OR SINCE MOVING BACK TO [facility] FROM ICU. BETINA REPORTS PT WILL NEED UPDATED PHYSICAL AND OCCUPATIONAL THERAPY NOTES. CM FAXED UPDATE TO [facility] AT [phone]. RENAL ADVERTISING SPACE CLERK VERÓNICA UPDATED. CM RECEIVED CALL FROM CHARLEY PHILLIPS, SON, , CM PROVIDED UPDATE AND PROVIDED BETINA'S NUMBER ([facility]) [phone]. RN HARSHAL HOUSE LEFT MESSAGE FOR MAKSIM CHILD OF [facility] REQUESTING UPDATE ON OUTPATIENT DIALYSIS UNIT PLACEMENT. [facility] PLANS TO ACCEPT PT PENDING INSURANCE PRIOR AUTHORIZATION FOR REHAB SERVICES AND WILL BEGIN WORKIING ON INSURANCE PRE AUTHORIZATION FOR REHAB SERVICES ONCE NEW PHYSICAL AND OCCUPATIONAL THERAPY NOTES ARE RECEIVED. MAKSIM GUZMAN [facility] IS WORKING ON OUTPATIENT DIALYSIS UNIT AND SCHEDULE THAT WILL ACCOMODATE REHAB TRANSPORTATION SHEDULE. Brandin Garcia CASE MANAGEMENT DCP- Discharge Planning Updated by [id number]: Brandin Garcia on 05/04/19 7:[address] Patient Name: ABBY PHILLIPS Encounter No: [id number] : 1945 Primary Insurance: [facility] MEDICARE SOLUTIONS Anticipated DC Date: 05-04-2019 Planned Disposition: Jail Facility External Planned Provider: [facility], MEDICARE REHAB BED DCP follow-up note: CM CALLED BETINA OF [facility], , ADVISED THAT CM FAXING UPDATE FOR REHAB ADMISSION. CM RECEIVED MESSAGE FROM MAKSIM CHILD OF [facility] WHO IS WORKING ON OUTPATIENT DIALYSIS UNIT IN [place]. CM FAXED UPDATE TO [facility] AT [phone]. [facility] HAS ACCEPTED PT AND IS WORKIING ON INSURANCE PRE AUTHORIZATION FOR REHAB SERVICES. MAKSIM OF [facility] IS WORKING ON OUTPATIENT DIALYSIS UNIT AND SCHEDULE THAT WILL ACCOMODATE REHAB TRANSPORTATION SHEDULE. Brandin Garcia CASE MANAGEMENT DCP- Discharge Planning Updated by [id number]: Brandin Garcia on 05/04/19 7:[address] Patient Name: ABBY PHILLIPS Encounter No: [id number] : 1945 Primary Insurance: [facility] MEDICARE SOLUTIONS Anticipated DC Date: 05-02-2019 Planned Disposition: Jail Facility External Planned Provider: [facility], MEDICARE REHAB BED DCP follow-up note: CM SPOKE TO PT IN ROOM, DISCUSSED OPTIONS FOR REHAB, INFORMED OF DENIALS AND ACCEPTANCE BY [facility]. PT STATES HE WILL GO TO [facility] FOR REHAB AND WOULD LIKE TO GET HOME SOON POSSIBLE. PT STATES HE IS DOING WELL WITH THERAPY AND FEELS HE MAY COULD GO HOME TODAY. CM EXPLAINED HAVING SAFE DISCHARGE AND NOTED PT'S VERY LIMITED ABILITY PER THERAPY NOTES, ENCOURAGED PT TO TAKE ADVANTAGE OF REHAB SERVICES THAT INSURANCE COVERS AT [facility]. PT IN AGREEMENT. CM CALLED CHARLEY PHILLIPS, , ADVISED CHARLEY OF ABOVE INFORMATION. CHARLEY IN AGREEMENT WITH [facility] AND DOES NOT WANT TO HOLD PLACEMENT FOR REHAB UP ANY LONGER. CHARLEY DOES NOT FEEL THAT PT IS SAFE TO DISCHARGE HOME AT THIS POINT AND NEEDS THE REHAB. CM CALLED BETINA OF [facility], , ADVISED THAT PT AND FAMILY IN AGREEMENT WITH REHAB AT [facility]. BETINA ADVISED THAT THE FACILITY WOULD PREFER AN EARLY DIALYSIS TIME, DAY IS NOT IMPORTANT, THEY WILL NOT TRANSPORT AFTER 5PM. CM NOTIFIED MAKSIM ALBRIGHTANN OF [facility] WHO WILL SEEK OUTPATIENT DIALYSIS UNIT IN [place]. PT NOTIFIED, IMPORTANT MESSAGE FROM MEDICARE PROVIDED AND EXPLAINED. [facility] HAS ACCEPTED PT AND IS WORKIING ON INSURANCE PRE AUTHORIZATION FOR REHAB SERVICES. MAKSIM OF [facility] IS WORKING ON OUTPATIENT DIALYSIS UNIT AND SCHEDULE THAT WILL ACCOMODATE REHAB TRANSPORTATION [facility]. Brandin Garcia, CASE MANAGEMENT DCP- Discharge Planning Updated by [id number]: Brandin Garcia on 05/02/19 10:[address] Patient Name: ABBY PHILLIPS Encounter No: [id number] : 1945 Primary Insurance: [facility] MEDICARE SOLUTIONS Anticipated DC Date: 05-02-2019 Planned Disposition: Jail Facility External Planned Provider: [facility], MEDICARE REHAB BED DCP follow-up note: CM RECEIVED CALL FROM [facility], , WAS ADVISED THEY ARE "PACKED" WITH NO BEDS AVAILABLE. CM RECEIVED CALL FROM BETINA OF [facility] [phone], WHO INFORMED CM THAT CLINICALLY, THEY WILL ACCEPT AND WILL ROZ FOR PRIOR AUTHORIZATION FROM PT'S INSURANCE FOR REHAB; BETINA WILL CALL CM SHORTLY REGARDING DIALYSIS UNIT PLACEMENT SCHEDULE NEEDS. BETINA WILL ALSO CALL PT'S SON. BETINA OF [facility], , CALLED, SHE HAS SPOKEN TO CHARLEY WHO DELINED PLACEMENT AT [facility] AND WANTS PLACEMENT AT [facility] OR [facility]. CM CALLED CHARLEY PHILLIPS AT [phone], LEFT MESSAGE ASKING FOR IMMEDIATE RETURN CALL. PT [facility]; PT HAS BEEN ACCEPTED CLINICALLY BY [facility] FOR REHAB PLACEMENT. PT'S FAMILY HAS CANCELLED PLACEMENT; CM WAITING ON RETURN CALL FROM CHARLEY PHILLIPS, PT'S SON. Brandin Garcia, CASE MANAGEMENT DCP- Discharge Planning Updated by [id number]: Brandin Garcia on 05/02/19 8:[address] Patient Name: ABBY PHILLIPS Encounter No: [id number] : 1945 Primary Insurance: [facility] MEDICARE SOLUTIONS Anticipated DC Date: 05-02-2019 Planned Disposition: Jail Facility External Planned Provider: [facility], MEDICARE REHAB BED DCP follow-up note: CM FAXED UPDATE TO [facility] AT [phone]. CM CALLED [facility], , WAS ADVISED BY ISAIAH THAT ADMISSIONS STAFF WERE IN THEIR MORNING MEETING; CM LEFT MESSAGE ASKING FOR UPDATE ON REHAB REFERRAL WITH CM CONTACT INFORMATION. CM FAXED REFERRAL UDPATE FOR [facility] AT [phone]. BETINA OF [facility], , WILL SCREEN PT FOR REHAB ADMISSION, TODAY, , TO ASSESS PT FOR ADMISSION; [facility] IS IN NETWORK WITH PT'S INSURANCE.. PT [place] [facility] [facility]; CM WAITING ADMISSION DETERMINATIONS FROM [facility] AND [facility] FOR REHAB PLACEMENT. IF ACCEPTED AT EITHER FACILITY, CM WILL REQUEST CHANGE OF OUTPATIENT DIALYSIS UNIT. Brandin Garcia, CASE MANAGEMENT DCP- Discharge Planning Updated by [id number]: Brandin Garcia on 04/29/19 2:[address] Patient Name: ABBY PHILLIPS Encounter No: [id number] : 1945 Primary Insurance: [facility] MEDICARE SOLUTIONS Anticipated DC Date: 05-02-2019 Planned Disposition: Jail Facility External Planned Provider: [facility], MEDICARE REHAB BED DCP follow-up note: CM RECEIVED CALL FROM PRASHANTH OF [facility], THEY WILL NOT ACCEPT ANOTHER DIALYSIS PATIENT AT THIS TIME. CM CALLED [facility], , WAS ADVISED THAT ADMISSIONS STAFF WERE IN MEETING; CM LEFT MESSAGE ASKING FOR UPDATE ON REHAB REFERRAL WITH CM CONTACT INFORMATION. CM CALLED AND SPOKE TO BETINA OF [facility], ; BETINA INFORMED CM THAT SHE HAS SEVERAL HOMES IN [facility] AND WILL SCREEN PT FOR REHAB ADMISSION, SHE WILL PERSONALLY COME TO HOSPITAL ON THURSDAY, , TO ASSESS PT FOR ADMISSION; [facility] IS IN NETWORK WITH PT'S INSURANCE. CM FAXED REFERRAL FOR [facility] AT [phone]. CM UPDATED PT WHO REPORTS WANTING REHAB PLACEMENT IN [place] CLOSE TO HIS SON POSSIBLE. CM UPDATE DR. COOPER VIA PHONE. DR. COOPER ADVISED THAT PT IS READY TO DISCHARGE TO REHAB WHEN ACCEPTED. PT HAS BEEN [facility] [facility]; CM WAITING ADMISSION DETERMINATIONS FROM [facility] AND [facility] FOR REHAB PLACEMENT. IF ACCEPTED AT EITHER FACILITY, CM WILL REQUEST CHANGE OF OUTPATIENT DIALYSIS UNIT. Brandin Garcia CASE MANAGEMENT DCP- Discharge Planning Updated by [id number]: Brandin Garcia on 04/29/19 6:[address] Patient Name: ABBY PHILLIPS Encounter No: [id number] : 1945 Primary Insurance: [facility] MEDICARE SOLUTIONS Anticipated DC Date: 04-21-2019 Planned Disposition: Jail Facility External Planned Provider:[facility] OR [facility] [place], MEDICARE REHAB BED DCP follow-up note: CM REVIEWED CHART, PT DID PARTICIPATE WITH THERAPY ON 04-27-19 AND 04-28-19. PT HAS DEMONSTRATED ABILITY TO TRANSFER AND SIT IN CHAIR FOR THREE OR MORE HOURS. CM FAXED REFERRAL UPDATE TO [facility] AT [phone]. AND [facility] [place] [phone]. CM WAITING ADMISSION DETERMINATIONS FROM [facility] AND [facility]. IF EITHER FACLITY WILL ACCEPT, CM WILL REQUEST CHANGE OF DIALYSIS UNIT. PT'S INSURANCE ALSO REQUIRES PRIOR AUTHORIZATION FOR REHAB PLACEMENT. Brandin Garcia CASE MANAGEMENT DCP- Discharge Planning Updated by [id number]: Brandin Garcia on 04/28/19 6:[address] Patient Name: ABBY PHILLIPS Encounter No: [id number] : 1945 Primary Insurance: [facility] MEDICARE SOLUTIONS Anticipated DC Date: 04-21-2019 Planned Disposition: Jail Facility External Planned Provider: [facility] [place], MEDICARE REHAB BED DCP follow-up note: CM REVIEWED CHART, PT DID PARTICIPATE WITH THERAPY ON 04-27-19. PT DID SIT UP IN CHAIR FOR THREE OR MORE HOURS. CM FAXED REFERRAL UPDATE TO [facility] AT [phone]. AND [facility] [place] [phone]. CM WAITING ADMISSION DETERMINATIONS FROM [facility] AND [facility]. IF EITHER FACLITY WILL ACCEPT, CM WILL REQUEST CHANGE OF DIALYSIS UNIT. PT'S INSURANCE ALSO REQUIRES PRIOR AUTHORIZATION FOR REHAB PLACEMENT. SELENA Escobedo MANAGEMENT DCP- Discharge Planning Updated by [id number]: Brandin Garcia on 04/27/19 11:[address] Patient Name: ABBY PHILLIPS Encounter No: [id number] : 1945 Primary Insurance: [facility] MEDICARE SOLUTIONS Anticipated DC Date: 04-21-2019 Planned Disposition: Jail Facility External Planned Provider: [facility] [place], MEDICARE REHAB BED DCP follow-up note: CM REVIEWED CHART, PT DID NOT PARTICIPATE WITH THERAPY ON 04-26-19. CM MET WITH PT IN ROOM TO DISCUSS DISCHARGE PLANNING AND NEEDS. PT DOES NOT WANT LONG-TERM CARE OR HOSPICE. PT INSISTS THAT HE WANTS REHAB SERVICES. CM EXPLAINED THAT PT HAS TO PARTICIPATE FULLY WITH THERAPY EACH TIME OFFERED INSURANCE WILL NOT PAY FOR REHAB SERVICES WITHOUT PARTICIPATION WITH OFFERED THERAPY. PT REPORTS UNDERSTANDING. PT PROMISES TO PARTICIPATE WITH THERAPY SERVICES AND UNDERSTANDS THAT HE MUST SIT UP IN CHAIR FOR THREE OR MORE HOURS TO SHOW HE CAN GO TO OUTPATIENT DIALYSIS. CM RECEIVED CALL FROM MATILDA OF [facility] WHO WILL FOLLOW, BUT WILL ONLY CONSIDER IF PT IS PARTICIPATING WITH THERAPY. CM TO FAX REFERRAL UPDATE [facility] AT [phone]. AND [facility] AT [phone], ONCE NEW THERAPY NOTES ARE DOCUMENTED ON 04-27. CM WAITING ADMISSION DETERMINATIONS FROM [facility] AND [facility]. IF EITHER FACLITY WILL ACCEPT, CM WILL REQUEST CHANGE OF DIALYSIS UNIT. PT'S INSURANCE ALSO REQUIRES PRIOR AUTHORIZATION FOR REHAB PLACEMENT. SELENA Escobedo DCP- Discharge Planning Updated by [id number]: Brandin Garcia on 04/26/19 8:[address] Patient Name: ABBY PHILLIPS Encounter No: [id number] : 1945 Primary Insurance: [facility] MEDICARE SOLUTIONS Anticipated DC Date: 04-21-2019 Planned Disposition: Jail Facility External Planned Provider:[facility] OR [facility] IN [place], MEDICARE REHAB BED DCP follow-up note: CM FAXED REFERRALUPDATE TO [facility] AT [phone]. CM FAXED REFERRAL UDP[facility] FOR [facility] TO PRASHANTH AT [phone]. CM TO DISCUSS WITH REHAB TODAY THAT PT NEEDS TO HAVE DEMONSTRATED ABILITY TO SIT FOR THREE OR MORE HOURS IN CHAIR FOR OUTPATIENT DIALYSIS. CM WAITING ADMISSION DETERMINATIONS FROM [facility] AND [facility] SELENA Escobedo MANAGEMENT DCP- Discharge Planning Updated by [id number]: Brandin Garcia on 04/25/19 1:[address] Patient Name: ABBY PHILLIPS Encounter No: [id number] : 1945 Primary Insurance: [facility] MEDICARE SOLUTIONS Anticipated DC Date: 04-21-2019 Planned Disposition: Jail Facility External Planned Provider: [facility] [place] MEDICARE REHAB BED DCP follow-up note: CM RECEIVED CALL FROM CHARLEY JACQUELINE, PT'S SON, WHO ASKED WHAT IS TAKING SO LONG TO GET PT INTO REHAB IN [place]. CM EXPLAINED PLACEMENT PROCESS, INSURANCE APPROVAL TIME FRAME AND ALSO THE PROCESS OF HAVING TO GET ACCEPTING DIALYSIS UNIT IF CM CAN GET FACILITY TO ACCEPT PT. CHARLEY REPORTS UNDERSTANDING. CM CALLED [facility], , SPOKE TO SYD WHO INFORMED CM THAT SHE DID NOT GET THE REFERRAL. CM CONFIRMED FAX NUMBER, REVIEWED AND FOUND FAX CONFIRMATION FROM THURSDAY. CM FAXED REFERRAL AND UPDATE TO [facility] AT [phone]. CM SPOKE PRASHANTH OF [facility], , SHE WILL CALL [facility] AND GET UPDATE SHE HAS NOT "HEARD A WORD". CM FAXED REFERRAL UDPATE FOR [facility] TO PRASHANTH AT [phone]. CM WAITING ADMISSION DETERMINATIONS FROM [facility] AND [facility]. Brandin Garcia CASE MANAGEMENT DCP- Discharge Planning Updated by [id number]: Brandin Garcia on 04/22/19 10:[address] Patient Name: ABBY PHILLIPS Encounter No: [id number] : 1945 Primary Insurance: [facility] MEDICARE SOLUTIONS Anticipated DC Date: 04-21-2019 Planned Disposition: Jail Facility External Planned Provider: [facility] [place], MEDICARE REHAB BED DCP follow-up note: CM SPOKE TO PT IN ROOM REGARDING DISCHARGE PLANNING. PT WILL GO TO REHAB IN [place] SO HE WILL BE CLOSE TO HIS SON. PT ASKED CM TO HURRY UP HE IS TIRED OF BEING IN THE HOSPITAL. CM EXPLAINED TO PT THAT IF HE WOULD HAVE DECIDED SOONER, CM WOULD HAVE ALREADY BEEN WORKING ON REHAB PLACEMENT. PT SIGNED CONSENT FOR [facility] SUGGESTED BY HIS SON AND FOR ANY SNF REHAB IN [place]. CM EXPLAINED TO PT THAT HIS INSURANCE MAY TAKE SEVERAL DAYS TO APPROVE OR DECLINE REHAB SERVICES AND THAT CM WILL HAVE TO FIND A FACILITY THAT WILL TRANSPORT TO DIALYSIS AND IF ALL OF THAT IS DONE, CM WILL HAVE TO REQUEST A NEW DIALYSIS UNIT. PT REPORTS UNDERSTANDING. CM CALLED [facility], , SPOKE TO KAVIN WHO WILL SCREEN FOR ADMISSION. CM FAXED REFERRAL TO [facility] AT [phone]. CM NOTIFIED PRASHANTH OF [facility], , OF REFERRAL. CM FAXED REFERRAL FOR [facility] TO PR[facility] AT [phone]. CM WAITING ADMISSION DETERMINATIONS FROM [facility] AND [facility]. Brandin Garcia, CASE MANAGEMENT DCP- Discharge Planning Updated by [id number]: Brandin Garcia on 04/21/19 4:[address] Patient Name: ABBY PHILLIPS Encounter No: [id number] : 1945 Primary Insurance: [facility] MEDICARE SOLUTIONS Anticipated DC Date: 04-21-2019 Planned Disposition: Jail Facility External Planned Provider: [facility] OR OTHER SNF IN [place] DCP follow-up note: CM RECEIVED CALL FROM CHARLEY JACQUELINE, PT'S SON, WHO REPORTS THAT HE HAS TALKED TO PT VIA PHONE AND PT IS NOW AGREEING TO GO TO SNF REHAB IN [place], CLOSE TO HIS SON. CM ATTEMPTED TO SEE PT WHO WAS OUT OF ROOM AT APPROXIMATELY 1345 HOURS. CM WILL SPEAK TO PT SOON POSSIBLE REGARDING SNF REHAB IN [place] AND SEND REFERRALS IF PT WILL SIGN THE CONSENT. Brandin Garcia, CASE MANAGEMENT DCP- Discharge Planning Updated by [id number]: Brandin Garcia on 04/21/19 11:[address] Patient Name: ABBY PHILLIPS Encounter No: [id number] : 1945 Primary Insurance: [facility] MEDICARE SOLUTIONS Anticipated DC Date: 04-21-2019 Planned Disposition: Left Against Medical Advice DCP follow-up note: CM SPOKE TO BEDSIDE NURSE WHO REPORTS PT'S SISTER, JORGE, CALLED AND STATES SHE WILL NOT BE PICKING PT UP FOR TRANSPORT HOME. CM MET WITH PT IN ROOM TO DISCUSS DISCHARGE PLANNING AND NEEDS. PT REPORTS STILL PLANNING TO LEAVE WHEN HE FINDS A RIDE. CM EXPLAINED THAT PT'S FAMILY MEMBERS ARE CALLING AND INFORMING HOSPITAL STAFF THEY ARE NOT PICKING UP PT. PT STATES HE HAS FRIENDS THAT ARE GOING TO HELP. CM PROVIDED PT WITH MEDICARE WEBSITE RESULTS FOR SNF REHABS WITHIN 50 MILES OF HIS HOME. CM EXPLAINED THAT [facility] WILL NOT ACCEPT PT BACK AND THAT IF PT CHANGES HIS MIND AND DECIDES TO GO TO REHAB, CM WILL NEED PT'S TOP TWO SELECTIONS AND SIGNATURE ON THE CHOICE FORM. IMPORTANT MESSAGE FROM MEDICARE PROVIDED AND EXPLAINED. PT ASKED CM TO CALL ADAM SANCHES, PHARMACIST AT [facility] TO HAVE HER , JOHN SANCHES, CALL PT. CM CALLED AND WAS ADVISED BY ADAM THAT AGUSTIN SPOKE TO PT YESTERDAY AND SHE WILL LET HER KNOW THAT PT WANTS TO TALK TO HIM AGAIN. CM STILL REFUSING SNF FACLITY PLACEMENT. CM WAITING ON PT TO DEVELOP TRANSPORTATION HOME. IF TRANSPORTATION IS VERIFIED, CALL [facility], , WILL HAS AGREED TO ARRANGE PORTABLE OXGYEN TO HOSPITAL FOR PT TO LEAVE HOSPITAL. CM TO CONTINUE TO FOLLOW AND ASSIST NEEDED. Management Internship: Brandin Garcia DCP- Discharge Planning Updated by [id number]: Brandin Garcia on 04/21/19 8:[address] Patient Name: ABBY PHILLIPS Encounter No: [id number] : 1945 Primary Insurance: [facility] MEDICARE SOLUTIONS Anticipated DC Date: 04-21-2019 Planned Disposition: Left Against Medical Advice DCP follow-up note: CM SPOKE TO HERIBERTO SANCHES REGARDING PT'S DISCHARGE PLAN. TREATMENT TEAM CONCERNED THAT PT DOES NOT HAVE SAFE DISCHARGE PLAN. CM MET WITH HERIBERTO SANCHES WITH PT IN ROOM. PT INSISTS THAT HE WILL GO HOME, JOHN SANCHES, , WILL PICK HIM UP. PT REPORTS ALEXSANDRA LOPEZ, A FRIEND FROM [place] WILL ASSIST WITH CARING FOR PT IN HOME AND ASSIST WITH GETTING TO AND FROM DIALYSIS. PT REPORTS HE NORMALLY DRIVES HIMSELF TO AND FROM DIALYSIS AND IS ABLE TO TRANSFER HIMSELF TO A WHEELCHAIR, GET TO HIS CAR, GET THE WHEELCHAIR INTO THE TRUCK OF THE CAR AND THEN WALK TO AND GET INTO THE DRIVERS SEAT HOLDING ON TO THE CAR. PT REPORTS HAVING ELECTRIC AND MANUAL WHEELCHAIR AND IS ABLE TO TRANSFER HIMSELF FROM BED TO CHAIR AND CHAIR TO BED. PT DOES NOT KNOW THE NUMBER TO HIS FRIEND ALEXSANDRA, TO VERIFY HE WILL ASSIST AFTER DISCHARGE. PT REPORTS HIS SISTER HANDY LIVES IN HIS HOUSE AND HAS FOR FOUR MONTHS. CM ADVISED THAT FAMILY INFORMED STAFF HERE THAT PT NEEDS NURSING REHAB. PT REPORTS THAT HIS FAMILY IS WANTING TO KEEP HIM AWAY AND IN THE [facility]. HERIBERTO SANCHES ADVISED THAT PT MUST HAVE A SAFE AND VERIFIABLE PLAN TO DISCHARGE HOME. CM ATTEMPTED TO CALL JOHN SANCHES, ; THERE WAS NO ANSWER AND NO MESSAGE MACHINE. CM CALLED [facility], , SPOKE TO CERTIFIED MASSAGE THERAPIST RAYNE WHO INFORMED CM THAT THEY CAN DELIVER PORTABLE OXYGEN TO PT'S ROOM FOR DISCHARGE IF NEEDED. HARSHAL SPOKE TO PT IN ROOM, HERIBERTO SANCHES WAS IN ROOM SPEAKING TO PT. PT STATES HE IS LEAVING "AMA". HERIBERTO SANCHES INFORMED PT THAT PT MUST HAVE A PERSON TO VERIFY THEY ARE TRANSPORTING PRIOR TO ANY AMA FORMS BEING PRESENTED. CM ADVISED PT IF HE IS ABLE TO VERIFY TRANSPORATATION BY CM SPEAKING TO THAT PERSON AND THEY AGREE TO COMMUNITY RELATIONS POLICE LIEUTENANT PT, CM WILL ASK JEANNIE TO DELIVER PORTABLE OXYGEN TO ROOM. CM ASKED THAT IF PT CHANGES HIS MIND AND DECIDES TO GO TO SNF REHAB, TO PLEASE NOTIFY CM AND CM WILL BE GLAD TO ASSIST WITH PLACEMENT. PT DECLINED. CM WAITING ON PT TO DEVELOP TRANSPORTATION HOME. IF TRANSPORTATION IS VERIFIED, CALL JEANNIE, , WILL HAS AGREED TO ARRANGE PORTABLE OXGYEN TO HOSPITAL FOR PT TO LEAVE HOSPITAL. CM TO CONTINUE TO FOLLOW AND ASSIST NEEDED. Management Internship: Brandin [place] DCP- Discharge Planning Updated by [id number]: Brandin Garcia on 04/20/19 1:[address] Patient Name: ABBY PHILLIPS Encounter No: [id number] : 1945 Primary Insurance: [employer] MEDICARE SOLUTIONS Anticipated DC Date: 04-19-2019 Planned Disposition: Home DCP follow-up note: CM MET WITH PT IN ROOM AND ENCOURAGED PT TO GO TO REHAB PRIOR TO DISCHARGE HOME. PT CONTINUES TO REFUSE AND REPORTS HIS SISTER WILL PICK HIM UP FOR DISCHARGE HOME. PT STATES HE MAY NEED OXYGEN FROM [facility] AGAIN TO GO HOME. CM EXPLAINED THAT IF HIS SISTER IS PICKING HIM UP AND SHE IS STAYING WITH PT IN PT'S HOME, SHE SHOULD BRING OXYGEN WITH HER. PT WILL REQUEST HIS SISTER BRING OXYGEN WITH HER. CM RECEIVED CALL FROM MIRIAM GORDON, , WHO INFORMED CM THAT PT HAS BEEN CALLING STATING HE IS GOING TO BE DISCHARGED TODAY AND NEEDS A RIDE HOME. JORGE STATES PT NEEDS TO GO BACK TO NURSING FACILITY FOR REHAB AND NOT HOME. CM EXPLAINED THAT CM CANNOT MAKE PT DO SOMETHING AGAINST PT'S WILL AND THAT IF PT IS NOT DEEMED INCOMPETENT BY A PHYSICIAN OR COURT, PT CAN MAKE BAD DECISIONS FOR HIMSELF. CM EXPLAINED HOW TO FILE FOR GUARDIANSHIP OF A PERSON AND THAT THIS WOULD HAVE TO BE GRANTED FOR ANYONE TO MAKE PT DO SOMETHING AGAINST HIS WILL. JORGE REPORTS UNDERSTANDING. PT PLANS TO DISCHARGE HOME WITH HIS SISTER, PT REPORTS HIS SISTER WILL PICK HIM UP FOR DISCHARGE HOME. PT DECLINES FDC, SNF OR REHAB PLACEMENT. PATIENT IS NOT APPROPRIATE FOR HOME HEALTH PER [facility]. Management Internship: Brandin Garcia DCP- Discharge Planning Updated by [id number]: Brandin Garcia on 04/19/19 3:[address] Patient Name: ABBY PHILLIPS Admission Status: ER Accout number: [id number] Admission Date: 04-19-2019 : 1945 Admission Diagnosis: Attending: SAMUEL COOPER Current LOS: 1 Anticipated DC Date: 04-19-2019 Planned Disposition: Home Primary Insurance: [facility] MEDICARE SOLUTIONS Discharge Planning Comments: CM MET WITH PT IN ROOM TO DISCUSS DISCHARGE PLANNING AND NEEDS. PT REPORTS LIVING AT HOME DEPENDENTLY WITH HIS SISTER HANDY WHO IS STAYING WITH PT IN PT'S HOME TO CARE FOR PT. . PT HAS [facility] LIFT [facility] WHEELCHAIR WELL HOME AND PORTABLE OXYGEN FROM [facility]. PT HAS NO OUTSIDE SERVICES ASSISTING IN THE HOME [facility] DECLINED TO ADMIT HIM AND TOLD HIM HE HAS TO BE DOING BETTER FOR HOME HEALTH SERVICES. CM DISCUSSED AVAILABILITY OF HOME HEALTH, REHAB SERVICES AND MEDICAL EQUIPMENT. PT DECLINED [facility]DC OR REHAB PLACEMENT. PT DENIES DISCHARGE NEEDS, REPORTS HIS SISTER HANDY WILL PICK HIM UP FOR DISCHARGE HOME. PT REPORTS MISSING DIALYSIS BECAUSE HE WENT ON THURSDAY AND THEY DID NOT HAVE A SLING TO USE ON THE LIFT TO PICK HIM UP AT THE DIALYSIS UNIT. PT STATES HE HAS A SLING AT HOME AND FORGOT ABOUT IT. PT REPORTS HIS SISTER USES THE [employer] LIFT TO GET HIM TO THE WHEELCHAIR AND THEY WILL LEAVE THE SLING UNDER HIM FOR DIALYSIS TO USE FROM NOW ON. CHOICE SIGNED FOR [facility] TO VERIFY WITH THEM THAT THEY WILL NOT SEE PT. CM CALLED [facility], , LEFT MESSAGE ASKING FOR THE NURSE TO CALL CM BACK. PT PLANS TO DISCHARGE HOME WITH HIS SISTER, PT REPORTS HIS SISTER WILL PICK HIM UP FOR DISCHARGE HOME. PT DECLINES FDC, SNF OR REHAB PLACEMENT. Management Internship: Brandin Garcia Appended by Brandin Garcia on 04/19/2019 16:56 CDT: CM RECEIVED CALL FROM JERICA OF [facility] WHO INFORMED CM THAT THEY DID GO FOR THE HOME HEALTH ADMIT AND INFORMED PT AND FAMILY THAT PT NEEDS REHAB AND IS NOT APPROPRIATE FOR HOME HEALTH SERVICES AT THIS TIME. PT PLANS TO DISCHARGE HOME WITH HIS SISTER, PT REPORTS HIS SISTER WILL PICK HIM UP FOR DISCHARGE HOME. PT DECLINES FDC, SNF OR REHAB PLACEMENT. Management Internship: Brandin Garcia DCPIA - Discharge Planning Initial Assessment Updated by [id number]: Brandin Gar[place] on 04/22/19 11:13 am * Is the patient Alert and Oriented? Yes * How many steps to enter\\exit or inside your home? NONE * PCP DR. ARACELI SIDHU * [facility] * Preadmission Environment Home with Family * ADLs Partial Dependent * Partial ADLs (Assistance needed) Ambulation Bathing Dressing Medication Management Toileting Transfers * Equipment [employer] Lift Oxygen Wheelchair * Other Equipment HOME AND PORTABLE OXYGEN, [facility] * List name and contact numbers for known caregivers / representatives who currently or will assist patient after discharge: HANDY JONES SISTER [phone] JORGE GORDON, SISTER, CHARLEY PHILLIPS, SON, * Verbal permission to speak to the caregivers and representatives has been obtained from the patient. Yes * Community resources currently utilized None * Please name any agencies selected above. PT HAD INTAKE WITH [facility] FROM [place], ACCORDING TO PT, THEY DECLINED T PROVIDE SERVICES UNTIL HE WAS "DOING BETTER" OUTPATIENT DIALYSIS , [facility], [address], [place]. PT REPORTS HE HAS BEEN DRIVING HIMSELF. * Additional services required to return to the preadmission environment? No * Can the patient safely return to the preadmission environment? Yes * Has this patient been hospitalized within the prior 30 days at any hospital? Yes Coverage Notice Reviewer: [id number] Skylar Augustin Notice Issued Date-Time: 04/19/2019 9:30 Notice Type: Medicare Outpatient Observation Notice Notice Delivered To: Patient Relationship to Patient: Self Egg Breaker Name: Delivery Method: HAND - Hand Delivered Anusha Days: Prior Verbal Notification: Recipient Understood Notice: Yes Recipient Signature: Yes Med Rec Note Co-signed by Attending: Coverage Notice Comment: Reviewer: [id number] Garcia Notice Issued Date-Time: 04/19/2019 12:15 Notice Type: Patient Choice Letter Notice Delivered To: Patient Relationship to Patient: Egg Breaker Name: Delivery Method: HAND - Hand Delivered Anusha Days: Prior Verbal Notification: Recipient Understood Notice: Yes Recipient Signature: Yes Med Rec Note Co-signed by Attending: Coverage Notice Comment: [id number] Reviewer: [id number] Skylar Garcia Notice Issued Date-Time: 04/21/2019 11:45 Notice Type: IM Discharge Notice Notice Delivered To: Patient Relationship to Patient: Egg Breaker Name: Delivery Method: HAND - Hand Delivered Anusha Days: Prior Verbal Notification: Recipient Understood Notice: Yes Recipient Signature: Yes Med Rec Note Co-signed by Attending: Coverage Notice Comment: Reviewer: [id number] Garcia Notice Issued Date-Time: 04/22/2019 16:05 Notice Type: Patient Choice Letter Notice Delivered To: Patient Relationship to Patient: Egg Breaker Name: Delivery Method: HAND - Hand Delivered Anusha Days: Prior Verbal Notification: Recipient Understood Notice: Yes Recipient Signature: Yes Med Rec Note Co-signed by Attending: Coverage Notice Comment: [facility]. Reviewer: [email or web address] Skylar Garcia Notice Issued Date-Time: 05/02/2019 12:48 Notice Type: IM Discharge Notice Notice Delivered To: Patient Relationship to Patient: Egg Breaker Name: Delivery Method: HAND - Hand Delivered Anusha Days: Prior Verbal Notification: Recipient Understood Notice: Yes Recipient Signature: Yes Med Rec Note Co-signed by Attending: Coverage Notice Comment: Reviewer: [id number] Skylar Garcia Notice Issued Date-Time: 05/10/2019 17:00 Notice Type: IM Discharge Notice Notice Delivered To: Patient Relationship to Patient: Egg Breaker Name: Delivery Method: HAND - Hand Delivered Anusha Days: Prior Verbal Notification: Recipient Understood Notice: Yes Recipient Signature: Yes Med Rec Note Co-signed by Attending: Coverage Notice Comment: Last DP export: 05/10/19 4:09 Patient Name: ABBY PHILLIPS Page [id number] at 0710 All edits/amendments must be made on the electronic document DICTATION DATE: 05/11/19709 ALLEY TENDER: APRIL 05/11/19709 RPT#: [id number] DC DATE: STATUS: ADM IN [facility] [address] [place] [address] END OF REPORT
[2019-05-11 09:00] VITALS: BP 155/54
--- NOTE | 2019-05-11 10:30 | NUR ---
PATIENT IS LAYING ON HIS SIDE. HE HAS BEEN REFUSING LABS. HE DID TAKE HIS MEDICATIONS. HE IS HOPING TO BE DISCHARGED TODAY.
--- NOTE | 2019-05-11 12:34 | NUR ---
OT NOTE: ATTEMPTED THERAPY ON THIS DATE. PT WAS IN BED AND REPORTED THAT HE DID NOT SLEEP LAST NIGHT AND WOULD NEED TO REST BEFORE THERAPY. PT AGREED TO REPOSITIONING , HE WAS VERY LOW IN BED AND VERY SOB. 02 CANULA ON TOP OF HEAD. RE APPLIED CANULA AND SCOOTED PT UP IN BED. ELEVATED HEAD OF BED TO ASSIST WITH BREATHING BUT PT NOT HAPPY WITH THIS. ALSO ELEVATED FEET TO PREVENT PRESSURE SORES ON HEELS.. AGITATED ABOUT THIS ALSO. INSTRUCTED PT TO KEEP 02 CANULA IN TO ALLOW FOR EASIER BREATHING. PATRICK GANDHI, OTR/L
[2019-05-11 13:01] VITALS: BP 190/74
[2019-05-11] MEDS ORDERED: GENTAMICIN PREM80 M1 IV (13:30)
--- NOTE | 2019-05-11 13:50 | NUR ---
PAGE INTO DR MACIAS TO SEE IF HE WANTS TO ADD DISCHARGE ORDERS.
--- NOTE | 2019-05-11 14:12 | MORECARE ---
CASE MANAGEMENT DISCHARGE SUMMARY PATIENT: ABBY PHILLIPS UNIT: [id number] ADM DATE: 04/19/19 AGE: 73 : [birth year] SEX: M ROOM/BED: D.2136 AUTHOR: BYRON,DOC PHYSICIAN: REFERRING PHYSICIAN: SAMUEL COOPER MD DATE OF SERVICE: 05/11/19 Discharge Plan Patient Name: ABBY PHILLIPS Facility: [facility]:[place] : 1945 Planned Disposition: Longterm Facility Anticipated Discharge Date: 05/11/19 Discharge Date: Expected LOS: 22 Initial Reviewer: [email or web address] Initial Review Date: 04/18/2019 Generated: 05/11/19 3:11 pm Comments DCP- Discharge Planning Updated by [id number]: Brandin Garcia on 05/11/19 1:[address] Patient Name: ABBY PHILLIPS Encounter No: [id number] : 1945 Primary Insurance: [facility] MEDICARE SOLUTIONS Anticipated DC Date: 05-11-2019 Planned Disposition: Longterm Facility External Planned Provider:[facility], MEDICARE REHAB BED DCP follow-up note: CM RECEIVED DISCHARGE ORDERS, NOTIFIED BETINA OF [facility], . CM CALLED [facility] DIALYSIS, , SPOKE TO NURSE RUST AND NOTIFIED OF NEED FOR GENTAMYCIN DURING DIALYSIS FOR 2 WEEKS, SHE ASKED THAT ORDERS BE FAXED. CM FAXED ORDER WITH DISCHARGE MEDICATION LIST TO [phone]. PT NOTIFIED AND IN AGREEMENT WITH DISCHARGE TO REHAB TODAY AT [facility]. BETINA REPORTS THEY ARE READY TO ACCEPT AND WILL CALL CM SHORTLY WITH NUMBER FOR NURSE REPORT AND VAN TNT LINE SUPERVISOR TIME. SELENA Escobedo DCP- Discharge Planning Updated by [id number]: Brandin Garcia on 05/10/19 4:[address] Patient Name: ABBY PHILLIPS Encounter No: [id number] : 1945 Primary Insurance: [facility] MEDICARE SOLUTIONS Anticipated DC Date: 05-11-2019 Planned Disposition: Longterm Facility External Planned Provider: [facility], MEDICARE REHAB BED DCP follow-up note: CM RECEIVED CALL FROM BETINA OF [facility], , THEY WILL ACCEPT PT, WILL ARRANGE TNT LINE SUPERVISOR FOR TOMORROW. BETINA WILL NOTIFY PT'S SON VIA PHONE. PT NOTIFIED AND IN AGREEMENT WITH PLAN, IMPORTANT MESSAGE FROM MEDICARE PROVIDED AND EXPLAINED. DR. COOPER INFORMED. [facility] PLANS TO ACCEPT PT 05-11-19; BETINA TO CALL CM WITH NUMBER FOR NURSE REPORT AND VAN TNT LINE SUPERVISOR TIME. OUTPATIENT DIALYSIS SCHEDULE ARRANGED FOR TTS 1145AM AT [facility] IN [place]. Brandin Garcia CASE MANAGEMENT DCP- Discharge Planning Updated by [id number]: Brandin Garcia on 05/10/19 8:[address] Patient Name: ABBY PHILLIPS Encounter No: [id number] : 1945 Primary Insurance: [facility] MEDICARE SOLUTIONS Anticipated DC Date: 05-04-2019 Planned Disposition: Longterm Facility External Planned Provider:[facility], MEDICARE REHAB BED DCP follow-up note: CM RECEIVED CALL ON 05-09-19, PT HAS NEW OUTPATIENT DIALYSIS CLINIC SCHEDULE AT [facility] IN [place], TTS, FIRST APPOINTMENT 05-12-19 AT 1115AM. ON 05-10-19, CM CALLED BETINA OF [facility], , ADVISED OF NEW DIALYSIS SCHEDULE AND START DATE WELL CM FAXING UPDATE FOR REHAB ADMISSION WITH NEW THERAPY EVALUATIONS. CM SPOKE TO PT IN ROOM, PT STILL IN AGREEMENT WITH DISCHARGE TO REHAB AT [facility]. [facility] PLANS TO ACCEPT PT PENDING INSURANCE PRIOR AUTHORIZATION FOR REHAB SERVICES AND WILL BEGIN WORKIING ON INSURANCE PRE AUTHORIZATION FOR REHAB SERVICES TODAY. OUTPATIENT DIALYSIS SCHEDULE ARRANGED FOR TTS 1145AM AT [facility] IN [place]. Brandin Garcia CASE MANAGEMENT DCP- Discharge Planning Updated by [id number]: Brandin Garcia on 05/09/19 1:[address] Patient Name: ABBY PHILLIPS Encounter No: [id number] : 1945 Primary Insurance: [facility] MEDICARE SOLUTIONS Anticipated DC Date: 05-04-2019 Planned Disposition: Longterm Facility External Planned Provider: [facility], MEDICARE REHAB BED DCP follow-up note: CM CALLED BETINA OF [facility], , ADVISED THAT CM FAXING UPDATE FOR REHAB ADMISSION. CM REVIEWED CHART, PT HAS NOT HAD PHYSICAL OR OCCUPATIONAL THERAPY IN ICU OR SINCE MOVING BACK TO [facility] FROM ICU. BETINA REPORTS PT WILL NEED UPDATED PHYSICAL AND OCCUPATIONAL THERAPY NOTES. CM FAXED UPDATE TO [facility] AT [phone]. RENAL AUDIO VISUAL DIRECTOR VERÓNICA UPDATED. CM RECEIVED CALL FROM CHARLEY PHILLIPS, SON, , CM PROVIDED UPDATE AND PROVIDED BETINA'S NUMBER ([facility]) [phone]. RN [facility] LEFT MESSAGE FOR MAKSIM CHILD OF [facility] REQUESTING UPDATE ON OUTPATIENT DIALYSIS UNIT PLACEMENT. [facility] PLANS TO ACCEPT PT PENDING INSURANCE PRIOR AUTHORIZATION FOR REHAB SERVICES AND WILL BEGIN WORKIING ON INSURANCE PRE AUTHORIZATION FOR REHAB SERVICES ONCE NEW PHYSICAL AND OCCUPATIONAL THERAPY NOTES ARE RECEIVED. MASON CALDERA IS WORKING ON OUTPATIENT DIALYSIS UNIT AND SCHEDULE THAT WILL ACCOMODATE REHAB TRANSPORTATION SHEDULE. Brandin Garcia CASE MANAGEMENT DCP- Discharge Planning Updated by [id number]: Brandin Garcia on 05/04/19 7:[address] Patient Name: ABBY PHILLIPS Encounter No: [id number] : 1945 Primary Insurance: [facility] MEDICARE SOLUTIONS Anticipated DC Date: 05-04-2019 Planned Disposition: Longterm Facility External Planned Provider: [facility], MEDICARE REHAB BED DCP follow-up note: CM CALLED BETINA OF [facility], , ADVISED THAT CM FAXING UPDATE FOR REHAB ADMISSION. CM RECEIVED MESSAGE FROM MAKSIM CHILD OF ROMANA CALDERA WHO IS WORKING ON OUTPATIENT DIALYSIS UNIT IN [place]. CM FAXED UPDATE TO [facility] AT [phone]. [facility] HAS ACCEPTED PT AND IS WORKIING ON INSURANCE PRE AUTHORIZATION FOR REHAB SERVICES. MASON CALDERA IS WORKING ON OUTPATIENT DIALYSIS UNIT AND SCHEDULE THAT WILL ACCOMODATE REHAB TRANSPORTATION SHEDULE. Brandin Garcia CASE MANAGEMENT DCP- Discharge Planning Updated by [id number]: Brandin Garcia on 05/04/19 7:[address] Patient Name: ABBY PHILLIPS Encounter No: [id number] : 1945 Primary Insurance: [facility] MEDICARE SOLUTIONS Anticipated DC Date: 05-02-2019 Planned Disposition: Longterm Facility External Planned Provider: [facility], MEDICARE REHAB BED DCP follow-up note: CM SPOKE TO PT IN ROOM, DISCUSSED OPTIONS FOR REHAB, INFORMED OF DENIALS AND ACCEPTANCE BY [facility]. PT STATES HE WILL GO TO [facility] FOR REHAB AND WOULD LIKE TO GET HOME SOON POSSIBLE. PT STATES HE IS DOING WELL WITH THERAPY AND FEELS HE MAY COULD GO HOME TODAY. CM EXPLAINED HAVING SAFE DISCHARGE AND NOTED PT'S VERY LIMITED ABILITY PER THERAPY NOTES, ENCOURAGED PT TO TAKE ADVANTAGE OF REHAB SERVICES THAT INSURANCE COVERS AT THE [facility]. PT IN AGREEMENT. CM CALLED CHARLEY PHILLIPS, , ADVISED CHARLEY OF ABOVE INFORMATION. CHARLEY IN AGREEMENT WITH [facility] AND DOES NOT WANT TO HOLD PLACEMENT FOR REHAB UP ANY LONGER. CHARLEY DOES NOT FEEL THAT PT IS SAFE TO DISCHARGE HOME AT THIS POINT AND NEEDS THE REHAB. CM CALLED BETINA OF [facility], , ADVISED THAT PT AND FAMILY IN AGREEMENT WITH REHAB AT [facility]. BETINA ADVISED THAT THE FACILITY WOULD PREFER AN EARLY DIALYSIS TIME, DAY IS NOT IMPORTANT, THEY WILL NOT TRANSPORT AFTER 5PM. CM NOTIFIED MAKSIM CHILD OF [facility] WHO WILL SEEK OUTPATIENT DIALYSIS UNIT [place]. PT NOTIFIED, IMPORTANT MESSAGE FROM MEDICARE PROVIDED AND EXPLAINED. [facility] HAS ACCEPTED PT AND IS WORKIING ON INSURANCE PRE AUTHORIZATION FOR REHAB SERVICES. MAKSIM OF [facility] IS WORKING ON OUTPATIENT DIALYSIS UNIT AND SCHEDULE THAT WILL [facility] Brandin Garcia, CASE MANAGEMENT DCP- Discharge Planning Updated by [id number]: Brandin Garcia on 05/02/19 10:[address] Patient Name: ABBY PHILLIPS Encounter No: [id number] : 1945 Primary Insurance: [facility] MEDICARE SOLUTIONS Anticipated DC Date: 05-02-2019 Planned Disposition: Longterm Facility External Planned Provider: [facility], MEDICARE REHAB BED DCP follow-up note: CM RECEIVED CALL FROM SYD OF [facility], , WAS ADVISED THEY ARE "PACKED" WITH NO BEDS AVAILABLE. CM RECEIVED CALL FROM BETINA OF [facility] [phone], WHO INFORMED CM THAT CLINICALLY, THEY WILL ACCEPT AND WILL ROZ FOR PRIOR AUTHORIZATION FROM PT'S INSURANCE FOR REHAB; BETINA WILL CALL CM SHORTLY REGARDING DIALYSIS UNIT PLACEMENT SCHEDULE NEEDS. BETINA WILL ALSO CALL PT'S SON. BETINA OF [facility], , CALLED, SHE HAS SPOKEN TO CHARLEY WHO DELINED PLACEMENT AT THE [facility] AND WANTS PLACEMENT AT [facility] OR [facility] [place]. CM CALLED CHARLEY JACQUELINE AT [phone], LEFT MESSAGE ASKING FOR IMMEDIATE RETURN CALL. PT HAS BEEN DECLINED BY THE [facility] AND [facility]; PT HAS BEEN ACCEPTED CLINICALLY BY [facility] FOR REHAB PLACEMENT. PT'S FAMILY HAS CANCELLED PLACEMENT; CM WAITING ON RETURN CALL FROM CHARLEY JACQUELINE, PT'S SON. Brandin Garcia, CASE MANAGEMENT DCP- Discharge Planning Updated by [id number]: Brandin Garcia on 05/02/19 8:[address] Patient Name: ABBY PHILLIPS Encounter No: [id number] : 1945 Primary Insurance: [facility] MEDICARE SOLUTIONS Anticipated DC Date: 05-02-2019 Planned Disposition: Longterm Facility External Planned Provider: [facility], MEDICARE REHAB BED DCP follow-up note: CM FAXED UPDATE TO [facility] AT [phone]. CM CALLED [facility], , WAS ADVISED BY ISAIAH THAT ADMISSIONS STAFF WERE IN THEIR MORNING MEETING; CM LEFT MESSAGE ASKING FOR UPDATE ON REHAB REFERRAL WITH CM CONTACT INFORMATION. CM FAXED REFERRAL UDPATE FOR [facility] AT [phone]. BETINA OF [facility], , WILL SCREEN PT FOR REHAB ADMISSION, TODAY, , TO ASSESS PT FOR ADMISSION; THE [facility] IS IN NETWORK WITH PT'S INSURANCE.. PT HAS BEEN DECLINED BY [facility]; CM WAITING ADMISSION DETERMINATIONS FROM [facility] AND [facility] FOR REHAB PLACEMENT. IF ACCEPTED AT EITHER FACILITY, CM WILL REQUEST CHANGE OF OUTPATIENT DIALYSIS UNIT. SELENA Escobedo MANAGEMENT DCP- Discharge Planning Updated by [id number]: Brandin Garcia on 04/29/19 2:[address] Patient Name: ABBY PHILLIPS Encounter No: [id number] : 1945 Primary Insurance: [facility] MEDICARE SOLUTIONS Anticipated DC Date: 05-02-2019 Planned Disposition: Longterm Facility External Planned Provider: [facility], MEDICARE REHAB BED DCP follow-up note: CM RECEIVED CALL FROM PRASHANTH OF THE [facility] [place], THEY WILL NOT ACCEPT ANOTHER DIALYSIS PATIENT AT THIS TIME. CM CALLED [facility], , WAS ADVISED THAT ADMISSIONS STAFF WERE IN MEETING; CM LEFT MESSAGE ASKING FOR UPDATE ON REHAB REFERRAL WITH CM CONTACT INFORMATION. CM CALLED AND SPOKE TO BETINA OF [facility], ; BETINA INFORMED CM THAT SHE HAS SEVERAL HOMES IN THE [place] AREA AND WILL SCREEN PT FOR REHAB ADMISSION, SHE WILL PERSONALLY COME TO HOSPITAL ON THURSDAY, , TO ASSESS PT FOR ADMISSION; [facility] IS IN NETWORK WITH PT'S INSURANCE. CM FAXED REFERRAL FOR [facility] AT [phone]. CM UPDATED PT WHO REPORTS WANTING REHAB PLACEMENT IN [place] CLOSE TO HIS SON POSSIBLE. CM UPDATE DR. COOPER VIA PHONE. DR. COOPER ADVISED THAT PT IS READY TO DISCHARGE TO REHAB WHEN ACCEPTED. PT HAS BEEN DECLINED BY THE [facility]; CM WAITING ADMISSION DETERMINATIONS FROM [facility] AND [facility] FOR REHAB PLACEMENT. IF ACCEPTED AT EITHER FACILITY, CM WILL REQUEST CHANGE OF OUTPATIENT DIALYSIS UNIT. SELENA Escobedo DCP- Discharge Planning Updated by [id number]: Brandin Garcia on 04/29/19 6:[address] Patient Name: ABBY PHILLIPS Encounter No: [id number] : 1945 Primary Insurance: [facility] MEDICARE SOLUTIONS Anticipated DC Date: 04-21-2019 Planned Disposition: Longterm Facility External Planned Provider:[facility] OR [facility] IN [place], MEDICARE REHAB BED DCP follow-up note: CM REVIEWED CHART, PT DID PARTICIPATE WITH THERAPY ON 04-27-19 AND 04-28-19. PT HAS DEMONSTRATED ABILITY TO TRANSFER AND SIT IN CHAIR FOR THREE OR MORE HOURS. CM FAXED REFERRAL UPDATE TO [facility] AT [phone]. AND [facility] AT [phone]. CM WAITING ADMISSION DETERMINATIONS FROM [facility] AND [facility]. IF EITHER FACLITY WILL ACCEPT, CM WILL REQUEST CHANGE OF DIALYSIS UNIT. PT'S INSURANCE ALSO REQUIRES PRIOR AUTHORIZATION FOR REHAB PLACEMENT. Brandin Garcia CASE MANAGEMENT DCP- Discharge Planning Updated by [id number]: Brandin Garcia on 04/28/19 6:[address] Patient Name: ABBY PHILLIPS Encounter No: [id number] : 1945 Primary Insurance: [facility] MEDICARE SOLUTIONS Anticipated DC Date: 04-21-2019 Planned Disposition: Longterm Facility External Planned Provider: [facility] OR [facility] IN [place], MEDICARE REHAB BED DCP follow-up note: CM REVIEWED CHART, PT DID PARTICIPATE WITH THERAPY ON 04-27-19. PT DID SIT UP IN CHAIR FOR THREE OR MORE HOURS. CM FAXED REFERRAL UPDATE TO [facility] AT [phone]. AND [facility] AT [phone]. CM WAITING ADMISSION DETERMINATIONS FROM [facility] AND [facility]. IF EITHER FACLITY WILL ACCEPT, CM WILL REQUEST CHANGE OF DIALYSIS UNIT. PT'S INSURANCE ALSO REQUIRES PRIOR AUTHORIZATION FOR REHAB PLACEMENT. Brandin Garcia CASE MANAGEMENT DCP- Discharge Planning Updated by [id number]: Brandin Garcia on 04/27/19 11:[address] Patient Name: ABBY PHILLIPS Encounter No: [id number] : 1945 Primary Insurance: [facility] MEDICARE SOLUTIONS Anticipated DC Date: 04-21-2019 Planned Disposition: Longterm Facility External Planned Provider: [facility] OR [facility] IN [place], MEDICARE REHAB BED DCP follow-up note: CM REVIEWED CHART, PT DID NOT PARTICIPATE WITH THERAPY ON 04-26-19. CM MET WITH PT IN ROOM TO DISCUSS DISCHARGE PLANNING AND NEEDS. PT DOES NOT WANT AWNING HANGER SUPERVISOR CARE OR HOSPICE. PT INSISTS THAT HE WANTS REHAB SERVICES. CM EXPLAINED THAT PT HAS TO PARTICIPATE FULLY WITH THERAPY EACH TIME OFFERED INSURANCE WILL NOT PAY FOR REHAB SERVICES WITHOUT PARTICIPATION WITH OFFERED THERAPY. PT REPORTS UNDERSTANDING. PT PROMISES TO PARTICIPATE WITH THERAPY SERVICES AND UNDERSTANDS THAT HE MUST SIT UP IN CHAIR FOR THREE OR MORE HOURS TO SHOW HE CAN GO TO OUTPATIENT DIALYSIS. CM RECEIVED CALL FROM MATILDA OF THE [facility] WHO WILL FOLLOW, BUT WILL ONLY CONSIDER IF PT IS PARTICIPATING WITH THERAPY. CM TO FAX REFERRAL UPDATE [facility] AT [phone]. AND [facility] AT [phone], ONCE NEW THERAPY NOTES ARE DOCUMENTED ON 04-27. CM WAITING ADMISSION DETERMINATIONS FROM [facility] AND [facility]. IF EITHER FACLITY WILL ACCEPT, CM WILL REQUEST CHANGE OF DIALYSIS UNIT. PT'S INSURANCE ALSO REQUIRES PRIOR AUTHORIZATION FOR REHAB PLACEMENT. Brandin Garcia, CASE MANAGEMENT DCP- Discharge Planning Updated by [id number]: Brandin Garcia on 04/26/19 8:[address] Patient Name: ABBY PHILLIPS Encounter No: [id number] : 1945 Primary Insurance: [facility] MEDICARE SOLUTIONS Anticipated DC Date: 04-21-2019 Planned Disposition: Longterm Facility External Planned Provider:[facility] OR [facility] IN [place], MEDICARE REHAB BED DCP follow-up note: CM FAXED REFERRALUPDATE TO [facility] AT [phone]. CM FAXED REFERRAL UDPATE FOR [facility] TO PRASHANTH AT [phone]. CM TO DISCUSS WITH REHAB TODAY THAT PT NEEDS TO HAVE DEMONSTRATED ABILITY TO SIT FOR THREE OR MORE HOURS IN CHAIR FOR OUTPATIENT DIALYSIS. CM WAITING ADMISSION DETERMINATIONS FROM [facility] AND [facility]. Brandin Garcia, CASE MANAGEMENT DCP- Discharge Planning Updated by [id number]: Brandin Garcia on 04/25/19 1:[address] Patient Name: ABBY PHILLIPS Encounter No: [id number] : 1945 Primary Insurance: [facility] MEDICARE SOLUTIONS Anticipated DC Date: 04-21-2019 Planned Disposition: Longterm Facility External Planned Provider: [facility] OR [facility] IN [place], MEDICARE REHAB BED DCP follow-up note: CM RECEIVED CALL FROM CHARLEY JACQUELINE, PT'S SON, WHO ASKED WHAT IS TAKING SO LONG TO GET PT INTO REHAB IN [place]. CM EXPLAINED PLACEMENT PROCESS, INSURANCE APPROVAL TIME FRAME AND ALSO THE PROCESS OF HAVING TO GET ACCEPTING DIALYSIS UNIT IF CM CAN GET FACILITY TO ACCEPT PT. CHARLEY REPORTS UNDERSTANDING. CM CALLED [facility], , SPOKE TO SYD WHO INFORMED CM THAT SHE DID NOT GET THE REFERRAL. CM CONFIRMED FAX NUMBER, REVIEWED AND FOUND FAX CONFIRMATION FROM THURSDAY. CM FAXED REFERRAL AND UPDATE TO [facility] AT [phone]. CM SPOKE PRASHANTH OF [facility], , SHE WILL CALL THE [facility] AND GET UPDATE SHE HAS NOT "HEARD A WORD". CM FAXED REFERRAL UDPATE FOR [facility] TO PRASH[facility]TH AT [phone]. CM WAITING [facility] DET[facility]ATIONS [facility] AND [facility]. Brandin Garcia, CASE MANAGEMENT DCP- Discharge Planning Updated by [id number]: Brandin Garcia on 04/22/19 10:[address] Patient Name: ABBY PHILLIPS Encounter No: [id number] : 1945 Primary Insurance: [facility] MEDICARE SOLUTIONS Anticipated DC Date: 04-21-2019 Planned Disposition: Longterm Facility External Planned Provider: [facility] IN [place], MEDICARE REHAB BED DCP follow-up note: CM SPOKE TO PT IN ROOM REGARDING DISCHARGE PLANNING. PT WILL GO TO REHAB IN [place] SO HE WILL BE CLOSE TO HIS SON. PT ASKED CM TO HURRY UP HE IS TIRED OF BEING IN THE HOSPITAL. CM EXPLAINED TO PT THAT IF HE WOULD HAVE DECIDED SOONER, CM WOULD HAVE ALREADY BEEN WORKING ON REHAB PLACEMENT. PT SIGNED CONSENT FOR [facility] SUGGESTED BY HIS SON AND FOR ANY HALF-WAY REHAB IN [place]. CM EXPLAINED TO PT THAT HIS INSURANCE MAY TAKE SEVERAL DAYS TO APPROVE OR DECLINE REHAB SERVICES AND THAT CM WILL HAVE TO FIND A FACILITY THAT WILL TRANSPORT TO DIALYSIS AND IF ALL OF THAT IS DONE, CM WILL HAVE TO REQUEST A NEW DIALYSIS UNIT. PT REPORTS UNDERSTANDING. CM CALLED [facility], , SPOKE TO KAVIN WHO WILL SCREEN FOR ADMISSION. CM FAXED REFERRAL TO [facility] AT [phone]. CM NOTIFIED PRASHANTH OF [facility], , OF REFERRAL. CM FAXED REFERRAL FOR [facility] TO [facility] AT [phone]. CM WAITING ADMISSION DETERMINATIONS FROM [facility] AND [facility]. Brandin Garcia, CASE MANAGEMENT DCP- Discharge Planning Updated by [id number]: Brandin Garcia on 04/21/19 4:[address] Patient Name: ABBY PHILLIPS Encounter No: [id number] : 1945 Primary Insurance: [facility] MEDICARE SOLUTIONS Anticipated DC Date: 04-21-2019 Planned Disposition: Longterm Facility External Planned Provider: [facility] OR OTHER HALF-WAY IN [place] DCP follow-up note: CM RECEIVED CALL FROM CHARLEY PHILLIPS, PT'S SON, WHO REPORTS THAT HE HAS TALKED TO PT VIA PHONE AND PT IS NOW AGREEING TO GO TO HALF-WAY REHAB IN [place], CLOSE TO HIS SON. CM ATTEMPTED TO SEE PT WHO WAS OUT OF ROOM AT APPROXIMATELY 1345 HOURS. CM WILL SPEAK TO PT SOON POSSIBLE REGARDING HALF-WAY REHAB IN [place] AND SEND REFERRALS IF PT WILL SIGN THE CONSENT. Brandin Garcia CASE MANAGEMENT DCP- Discharge Planning Updated by [id number]: Brandin Garcia on 04/21/19 11:[address] Patient Name: ABBY PHILLIPS Encounter No: [id number] : 1945 Primary Insurance: [facility] MEDICARE SOLUTIONS Anticipated DC Date: 04-21-2019 Planned Disposition: Left Against Medical Advice DCP follow-up note: CM SPOKE TO BEDSIDE NURSE WHO REPORTS PT'S SISTER, JORGE, CALLED AND STATES SHE WILL NOT BE PICKING PT UP FOR TRANSPORT HOME. CM MET WITH PT IN ROOM TO DISCUSS DISCHARGE PLANNING AND NEEDS. PT REPORTS STILL PLANNING TO LEAVE WHEN HE FINDS A RIDE. CM EXPLAINED THAT PT'S FAMILY MEMBERS ARE CALLING AND INFORMING HOSPITAL STAFF THEY ARE NOT PICKING UP PT. PT STATES HE HAS FRIENDS THAT ARE GOING TO HELP. CM PROVIDED PT WITH MEDICARE WEBSITE RESULTS FOR HALF-WAY REHABS WITHIN 50 MILES OF HIS HOME. CM EXPLAINED THAT [facility] WILL NOT ACCEPT PT BACK AND THAT IF PT CHANGES HIS MIND AND DECIDES TO GO TO REHAB, CM WILL NEED PT'S TOP TWO SELECTIONS AND SIGNATURE ON THE CHOICE FORM. IMPORTANT MESSAGE FROM MEDICARE PROVIDED AND EXPLAINED. PT ASKED CM TO CALL ADAM SANCHES, PHARMACIST AT [facility] TO HAVE HER , JOHN SANCHES, CALL PT. CM CALLED AND WAS ADVISED BY ADAM THAT AGUSTIN SPOKE TO PT YESTERDAY AND SHE WILL LET HER KNOW THAT PT WANTS TO TALK TO HIM AGAIN. CM STILL REFUSING HALF-WAY FACLITY PLACEMENT. CM WAITING ON PT TO DEVELOP TRANSPORTATION HOME. IF TRANSPORTATION IS VERIFIED, CALL [facility], , WILL HAS AGREED TO ARRANGE PORTABLE OXGYEN TO HOSPITAL FOR PT TO LEAVE HOSPITAL. CM TO CONTINUE TO FOLLOW AND ASSIST NEEDED. Computer Tape Librarian: Brandin Garcia DCP- Discharge Planning Updated by [id number]: Brandin Garcia on 04/21/19 8:[address] Patient Name: ABBY PHILLIPS Encounter No: [id number] : 1945 Primary Insurance: [facility] MEDICARE SOLUTIONS Anticipated DC Date: 04-21-2019 Planned Disposition: Left Against Medical Advice DCP follow-up note: CM SPOKE TO HERIBERTO SANCHES REGARDING PT'S DISCHARGE PLAN. TREATMENT TEAM CONCERNED THAT PT DOES NOT HAVE SAFE DISCHARGE PLAN. CM MET WITH HERIBERTO SANCHES WITH PT IN ROOM. PT INSISTS THAT HE WILL GO HOME, JOHN VERÓNICA, , WILL PICK HIM UP. PT REPORTS ALEXSANDRA LOPEZ, A FRIEND FROM [place] WILL ASSIST WITH CARING FOR PT IN HOME AND ASSIST WITH GETTING TO AND FROM DIALYSIS. PT REPORTS HE NORMALLY DRIVES HIMSELF TO AND FROM DIALYSIS AND IS ABLE TO TRANSFER HIMSELF TO A WHEELCHAIR, GET TO HIS CAR, GET THE WHEELCHAIR INTO THE TRUCK OF THE CAR AND THEN WALK TO AND GET INTO THE DRIVERS SEAT HOLDING ON TO THE CAR. PT REPORTS HAVING ELECTRIC AND MANUAL WHEELCHAIR AND IS ABLE TO TRANSFER HIMSELF FROM BED TO CHAIR AND CHAIR TO BED. PT DOES NOT KNOW THE NUMBER TO HIS FRIEND ALEXSANDRA, TO VERIFY HE WILL ASSIST AFTER DISCHARGE. PT REPORTS HIS SISTER HANDY LIVES IN HIS HOUSE AND HAS FOR FOUR MONTHS. CM ADVISED THAT FAMILY INFORMED STAFF HERE THAT PT NEEDS NURSING REHAB. PT REPORTS THAT HIS FAMILY IS WANTING TO KEEP HIM AWAY AND IN THE HALF-WAY. HERIBERTO SANCHES ADVISED THAT PT MUST HAVE A SAFE AND VERIFIABLE PLAN TO DISCHARGE HOME. CM ATTEMPTED TO CALL JOHN VERÓNICA, ; THERE WAS NO ANSWER AND NO MESSAGE MACHINE. CM CALLED [facility], , SPOKE TO ELECTRONIC INDUCTION HARDENER WILL WHO INFORMED CM THAT THEY CAN DELIVER PORTABLE OXYGEN TO PT'S ROOM FOR DISCHARGE IF NEEDED. CM SPOKE TO PT IN ROOM, HERIBERTO SANCHES WAS IN ROOM SPEAKING TO PT. PT STATES HE IS LEAVING "AMA". HERIBERTO VERÓNICA INFORMED PT THAT PT MUST HAVE A PERSON TO VERIFY THEY ARE TRANSPORTING PRIOR TO ANY AMA FORMS BEING PRESENTED. CM ADVISED PT IF HE IS ABLE TO VERIFY TRANSPORATATION BY CM SPEAKING TO THAT PERSON AND THEY AGREE TO TNT LINE SUPERVISOR PT, CM WILL ASK JE[facility] TO DELIVER PORTABLE OXYGEN TO ROOM. CM ASKED THAT IF PT CHANGES HIS MIND AND DECIDES TO GO TO HALF-WAY REHAB, TO PLEASE NOTIFY CM AND CM WILL BE GLAD TO ASSIST WITH PLACEMENT. PT DECLINED. CM WAITING ON PT TO DEVELOP TRANSPORTATION HOME. IF TRANSPORTATION IS VERIFIED, CALL JEANNIE, , WILL HAS AGREED TO ARRANGE PORTABLE OXGYEN TO HOSPITAL FOR PT TO LEAVE HOSPITAL. CM TO CONTINUE TO FOLLOW AND ASSIST NEEDED. Computer Tape Librarian: Brandin Garcia DCP- Discharge Planning Updated by [id number]: Brandin Garcia on 04/20/19 1:[address] Patient Name: ABBY PHILLIPS Encounter No: [id number] : 1945 Primary Insurance: [facility] MEDICARE SOLUTIONS Anticipated DC Date: 04-19-2019 Planned Disposition: Home DCP follow-up note: HARSHAL MET WITH PT IN ROOM AND ENCOURAGED PT TO GO TO REHAB PRIOR TO DISCHARGE HOME. PT CONTINUES TO REFUSE AND REPORTS HIS SISTER WILL PICK HIM UP FOR DISCHARGE HOME. PT STATES HE MAY NEED OXYGEN FROM [facility] AGAIN TO GO HOME. HARSHAL EXPLAINED THAT IF HIS SISTER IS PICKING HIM UP AND SHE IS STAYING WITH PT IN PT'S HOME, SHE SHOULD BRING OXYGEN WITH HER. PT WILL REQUEST HIS SISTER BRING OXYGEN WITH HER. HARSHAL RECEIVED CALL FROM MIRIAM GORDON, , WHO INFORMED CM THAT PT HAS BEEN CALLING STATING HE IS GOING TO BE DISCHARGED TODAY AND NEEDS A RIDE HOME. JORGE STATES PT NEEDS TO GO BACK TO NURSING FACILITY FOR REHAB AND NOT HOME. HARSHAL EXPLAINED THAT CM CANNOT MAKE PT DO SOMETHING AGAINST PT'S WILL AND THAT IF PT IS NOT DEEMED INCOMPETENT BY A PHYSICIAN OR COURT, PT CAN MAKE BAD DECISIONS FOR HIMSELF. CM EXPLAINED HOW TO FILE FOR GUARDIANSHIP OF A PERSON AND THAT THIS WOULD HAVE TO BE GRANTED FOR ANYONE TO MAKE PT DO SOMETHING AGAINST HIS WILL. JORGE REPORTS UNDERSTANDING. PT PLANS TO DISCHARGE HOME WITH HIS SISTER, PT REPORTS HIS SISTER WILL PICK HIM UP FOR DISCHARGE HOME. PT DECLINES HALF-WAY, HALF-WAY OR REHAB PLACEMENT. PATIENT IS NOT APPROPRIATE FOR HOME HEALTH PER [facility]. Computer Tape Librarian: Brandin Garcia DCP- Discharge Planning Updated by [id number]: Brandin Garcia on 04/19/19 3:[address] Patient Name: ABBY PHILLIPS Admission Status: ER Accout number: [id number] Admission Date: 04-19-2019 : 1945 Admission Diagnosis: Attending: SAMUEL COOPER Current LOS: 1 Anticipated DC Date: 04-19-2019 Planned Disposition: Home Primary Insurance: [facility] MEDICARE SOLUTIONS Discharge Planning Comments: CM MET WITH PT IN ROOM TO DISCUSS DISCHARGE PLANNING AND NEEDS. PT REPORTS LIVING AT HOME DEPENDENTLY WITH HIS SISTER HANDY WHO IS STAYING WITH PT IN PT'S HOME TO CARE FOR PT. . PT HAS [facility] LIFT AND WHEELCHAIR WELL HOME AND PORTABLE OXYGEN FROM [facility]. PT HAS NO OUTSIDE SERVICES ASSISTING IN THE HOME [facility] DECLINED TO ADMIT HIM AND TOLD HIM HE HAS TO BE DOING BETTER FOR HOME HEALTH SERVICES. CM DISCUSSED AVAILABILITY OF HOME HEALTH, REHAB SERVICES AND MEDICAL EQUIPMENT. PT DECLINED HALF-WAY OR REHAB PLACEMENT. PT DENIES DISCHARGE NEEDS, REPORTS HIS SISTER HANDY WILL PICK HIM UP FOR DISCHARGE HOME. PT REPORTS MISSING DIALYSIS BECAUSE HE WENT ON THURSDAY AND THEY DID NOT HAVE A SLING TO USE ON THE LIFT TO PICK HIM UP AT THE DIALYSIS UNIT. PT STATES HE HAS A SLING AT HOME AND FORGOT ABOUT IT. PT REPORTS HIS SISTER USES THE [employer] LIFT TO GET HIM TO THE WHEELCHAIR AND THEY WILL LEAVE THE SLING UNDER HIM FOR DIALYSIS TO USE FROM NOW ON. CHOICE SIGNED FOR [facility] TO VERIFY WITH THEM THAT THEY WILL NOT SEE PT. CM CALLED [facility], , LEFT MESSAGE ASKING FOR THE NURSE TO CALL CM BACK. PT PLANS TO DISCHARGE HOME WITH HIS SISTER, PT REPORTS HIS SISTER WILL PICK HIM UP FOR DISCHARGE HOME. PT DECLINES HALF-WAY, HALF-WAY OR REHAB PLACEMENT. Computer Tape Librarian: Brandin Garcia Appended by Brandin Garcia on 04/19/2019 16:56 CDT: CM RECEIVED CALL FROM JERICA OF [facility] WHO INFORMED CM THAT THEY DID GO FOR THE HOME HEALTH ADMIT AND INFORMED PT AND FAMILY THAT PT NEEDS REHAB AND IS NOT APPROPRIATE FOR HOME HEALTH SERVICES AT THIS TIME. PT PLANS TO DISCHARGE HOME WITH HIS SISTER, PT REPORTS HIS SISTER WILL PICK HIM UP FOR DISCHARGE HOME. PT DECLINES HALF-WAY, HALF-WAY OR REHAB PLACEMENT. Computer Tape Librarian: Brandin Garcia DCPIA - Discharge Planning Initial Assessment Updated by [id number]: Brandin Garcia on 04/22/19 11:13 am * Is the patient Alert and Oriented? Yes * How many steps to enter\\exit or inside your home? NONE * PCP DR. ARACELI SIDHU * Pharmacy [facility] * Preadmission Environment Home with Family * ADLs Partial Dependent * Partial ADLs (Assistance needed) Ambulation Bathing Dressing Medication Management Toileting Transfers * Equipment Areli Lift Oxygen Wheelchair * Other Equipment HOME AND PORTABLE OXYGEN, [facility] * List name and contact numbers for known caregivers / representatives who currently or will assist patient after discharge: HANDY JONES, SISTER [phone] JORGE GORDON, SISTER, CHARLEY PHILLIPS, SON, * Verbal permission to speak to the caregivers and representatives has been obtained from the patient. Yes * Community resources currently utilized None * Please name any agencies selected above. PT HAD INTAKE WITH [facility] FROM [place], ACCORDING TO PT, THEY DECLINED T PROVIDE SERVICES UNTIL HE WAS "DOING BETTER" OUTPATIENT DIALYSIS , TTS, 1000AM, [place]. PT REPORTS HE HAS BEEN DRIVING HIMSELF. * Additional services required to return to the preadmission environment? No * Can the patient safely return to the preadmission environment? Yes * Has this patient been hospitalized within the prior 30 days at any hospital? Yes Coverage Notice Reviewer: [id number] Skylar Augustin Notice Issued Date-Time: 04/19/2019 9:30 Notice Type: Medicare Outpatient Observation Notice Notice Delivered To: Patient Relationship to Patient: Self Coal Hauler Operator Name: Delivery Method: HAND - Hand Delivered Anusha Days: Prior Verbal Notification: Recipient Understood Notice: Yes Recipient Signature: Yes Med Rec Note Co-signed by Attending: Coverage Notice Comment: Reviewer: [id number] - Brnadin Garcia Notice Issued Date-Time: 04/19/2019 12:15 Notice Type: Patient Choice Letter Notice Delivered To: Patient Relationship to Patient: Coal Hauler Operator Name: Delivery Method: HAND - Hand Delivered Anusha Days: Prior Verbal Notification: Recipient Understood Notice: Yes Recipient Signature: Yes Med Rec Note Co-signed by Attending: Coverage Notice Comment: [facility] Reviewer: LIO Garcia Notice Issued Date-Time: 04/21/2019 11:45 Notice Type: IM Discharge Notice Notice Delivered To: Patient Relationship to Patient: Coal Hauler Operator Name: Delivery Method: HAND - Hand Delivered Anusha Days: Prior Verbal Notification: Recipient Understood Notice: Yes Recipient Signature: Yes Med Rec Note Co-signed by Attending: Coverage Notice Comment: Reviewer: LIO Garcia Notice Issued Date-Time: 04/22/2019 16:05 Notice Type: Patient Choice Letter Notice Delivered To: Patient Relationship to Patient: Coal Hauler Operator Name: Delivery Method: HAND - Hand Delivered Anusha Days: Prior Verbal Notification: Recipient Understood Notice: Yes Recipient Signature: Yes Med Rec Note Co-signed by Attending: Coverage Notice Comment: [facility]. Reviewer: LIO Garcia Notice Issued Date-Time: 05/02/2019 12:48 Notice Type: IM Discharge Notice Notice Delivered To: Patient Relationship to Patient: Coal Hauler Operator Name: Delivery Method: HAND - Hand Delivered Anusha Days: Prior Verbal Notification: Recipient Understood Notice: Yes Recipient Signature: Yes Med Rec Note Co-signed by Attending: Coverage Notice Comment: Reviewer: LIO Garcia Notice Issued Date-Time: 05/10/2019 17:00 Notice Type: IM Discharge Notice Notice Delivered To: Patient Relationship to Patient: Coal Hauler Operator Name: Delivery Method: HAND - Hand Delivered Anusha Days: Prior Verbal Notification: Recipient Understood Notice: Yes Recipient Signature: Yes Med Rec Note Co-signed by Attending: Coverage Notice Comment: Last DP export: 05/11/19 6:10 Patient Name: ABBY PHILLIPS Page [id number] at 1412 All edits/amendments must be made on the electronic document DICTATION DATE: 05/11/19 1411 CLIENT COORDINATOR: APRIL 05/11/19 1411 RPT#: [id number] DC DATE: STATUS: ADM IN [facility] [address] [place] [address] END OF REPORT
--- NOTE | 2019-05-11 15:06 | NUR ---
DISCHARGE TEACHING COMPLETED AND SIGNED. REPORT CALLED TO [facility] ON [address] IN [facility]. ALL DRESSING CHANGED, HEELS BILATERALLY, [place] PLACED ON COCCYX, DRESSINGS ON HIS LEFT FINGERS CHANGED, HEEL PROTECTORS IN PLACE. THERE IS NO IV AT THIS TIME. TELEMETRY REMOVED. ALL PATIENT BELONGINGS HAVE BEEN PACKED UP FOR THE PATIENT AND WILL GO WITH HIM WHEN THE HALFWAY COMES TO PICK HIM UP . THE HALFWAY SAID THAT IT WILL BE A LATE TRANSPORT, BECAUSE THEY ARE COMING FROM [place].
--- NOTE | 2019-05-11 18:51 | NUR ---
PATIENT HAS BEEN DISCHARGED. TRANSPORT SERVICE FROM [facility] ARRIVED AND BROUGHT HIM BACK TO [place]. ALL PATIENT BELONGINGS WENT WITH THE PATIENT. HE TRANSFERED DOWNSTAIRS BY WHEELCHAIR. ALL DISCHARGE PAPERWORK SIGNED.
--- NOTE | 2019-05-12 07:23 | MORECARE ---
CASE MANAGEMENT DISCHARGE SUMMARY PATIENT: ABBY PHILLIPS UNIT: [id number] ADM DATE: 04/19/19 AGE: 73 : [birth year] SEX: M ROOM/BED: D.2136 AUTHOR: BYRONDOC PHYSICIAN: REFERRING PHYSICIAN: SAMUEL COOPER MD DATE OF SERVICE: 05/12/19 Discharge Plan Patient Name: ABBY PIHLLIPS Facility: [facility]:[place] : 1945 Planned Disposition: [facility] Facility Anticipated Discharge Date: 05/11/19 Discharge Date: 05/11/2019 Expected LOS: 22 Initial Reviewer: [id number] Initial Review Date: 04/18/2019 Generated: 05/12/19 8:23 am Comments DCP- Discharge Planning Updated by [id number]: Brandin Garcia on 05/11/19 1:[address] Patient Name: ABBY PHILLIPS Encounter No: [id number] : 1945 Primary Insurance: [employer] Anticipated DC Date: 05-11-2019 Planned Disposition: [facility] Facility External Planned Provider:[facility], MEDICARE REHAB BED DCP follow-up note: CM RECEIVED DISCHARGE ORDERS, NOTIFIED BETINA OF [facility], . CM CALLED [facility], , SPOKE TO NURSE RUST AND NOTIFIED OF NEED FOR GENTAMYCIN DURING DIALYSIS FOR 2 WEEKS, SHE ASKED THAT ORDERS BE FAXED. CM FAXED ORDER WITH DISCHARGE MEDICATION LIST TO [phone]. PT NOTIFIED AND IN AGREEMENT WITH DISCHARGE TO REHAB TODAY AT THE [facility]. BETINA REPORTS THEY ARE READY TO ACCEPT AND WILL CALL CM SHORTLY WITH NUMBER FOR NURSE REPORT AND VAN TRACK LABORER TIME. SELENA Escobedo DCP- Discharge Planning Updated by [id number]: Brandin Garcia on 05/10/19 4:[address] Patient Name: ABBY PHILLIPS Encounter No: [id number] : 1945 Primary Insurance: [employer] Anticipated DC Date: 05-11-2019 Planned Disposition: [facility] Facility External Planned Provider: [facility], MEDICARE REHAB BED DCP follow-up note: CM RECEIVED CALL FROM BETINA OF THE [facility], , THEY WILL ACCEPT PT, WILL ARRANGE TRACK LABORER FOR TOMORROW. BETINA WILL NOTIFY PT'S SON VIA PHONE. PT NOTIFIED AND IN AGREEMENT WITH PLAN, IMPORTANT MESSAGE FROM MEDICARE PROVIDED AND EXPLAINED. DR. COOPER INFORMED. THE [facility] PLANS TO ACCEPT PT 05-11-19; BETINA TO CALL CM WITH NUMBER FOR NURSE REPORT AND VAN TRACK LABORER TIME. OUTPATIENT DIALYSIS SCHEDULE ARRANGED FOR TTS 1145AM AT [facility] IN [place]. Brandin Garcia CASE MANAGEMENT DCP- Discharge Planning Updated by [id number]: Brandin Garcia on 05/10/19 8:[address] Patient Name: ABBY PHILLIPS Encounter No: [id number] : 1945 Primary Insurance: [employer] Anticipated DC Date: 05-04-2019 Planned Disposition: [facility] Facility External Planned Provider:[facility], MEDICARE REHAB BED DCP follow-up note: CM RECEIVED CALL ON 05-09-19, PT HAS NEW OUTPATIENT DIALYSIS CLINIC SCHEDULE AT [facility] IN [place], TTS, FIRST APPOINTMENT 05-12-19 AT 1115AM. ON 05-10-19, CM CALLED BETINA OF THE [facility], , ADVISED OF NEW DIALYSIS SCHEDULE AND START DATE WELL CM FAXING UPDATE FOR REHAB ADMISSION WITH NEW THERAPY EVALUATIONS. CM SPOKE TO PT IN ROOM, PT STILL IN AGREEMENT WITH DISCHARGE TO REHAB AT [facility]. [facility] PLANS TO ACCEPT PT PENDING INSURANCE PRIOR AUTHORIZATION FOR REHAB SERVICES AND WILL BEGIN WORKIING ON INSURANCE PRE AUTHORIZATION FOR REHAB SERVICES TODAY. OUTPATIENT DIALYSIS SCHEDULE ARRANGED FOR TTS 1145AM AT [facility] IN [place]. Brandin Garcia CASE MANAGEMENT DCP- Discharge Planning Updated by [id number]: Brandin Garcia on 05/09/19 1:[address] Patient Name: ABBY PHILLIPS Encounter No: [id number] : 1945 Primary Insurance: [employer] Anticipated DC Date: 05-04-2019 Planned Disposition: [facility] Facility External Planned Provider: [facility], MEDICARE REHAB BED DCP follow-up note: CM CALLED BETINA OF THE [facility], , ADVISED THAT CM FAXING UPDATE FOR REHAB ADMISSION. CM REVIEWED CHART, PT HAS NOT HAD PHYSICAL OR OCCUPATIONAL THERAPY IN ICU OR SINCE MOVING BACK TO [facility] FROM ICU. BETINA REPORTS PT WILL NEED UPDATED PHYSICAL AND OCCUPATIONAL THERAPY NOTES. CM FAXED UPDATE TO THE [facility] AT [phone]. RENAL REINFORCED CONCRETE INSPECTOR VERÓNICA UPDATED. CM RECEIVED CALL FROM CHARLEY PHILLIPS, SON, , CM PROVIDED UPDATE AND PROVIDED BETINA'S NUMBER ([facility]) [phone]. RN [employer] LEFT MESSAGE FOR MAKSIM CHILD OF [facility] REQUESTING UPDATE ON OUTPATIENT DIALYSIS UNIT PLACEMENT. [facility] PLANS TO ACCEPT PT PENDING INSURANCE PRIOR AUTHORIZATION FOR REHAB SERVICES AND WILL BEGIN WORKIING ON INSURANCE PRE AUTHORIZATION FOR REHAB SERVICES ONCE NEW PHYSICAL AND OCCUPATIONAL THERAPY NOTES ARE RECEIVED. MASON CALDERA IS WORKING ON OUTPATIENT DIALYSIS UNIT AND SCHEDULE THAT WILL ACCOMODATE REHAB TRANSPORTATION SHEDULE. Brandin Garcia CASE MANAGEMENT DCP- Discharge Planning Updated by [id number]: Brandin Garcia on 05/04/19 7:[address] Patient Name: ABBY PHILLIPS Encounter No: [id number] : 1945 Primary Insurance: [employer] Anticipated DC Date: 05-04-2019 Planned Disposition: [facility] Facility External Planned Provider: [facility], MEDICARE REHAB BED DCP follow-up note: CM CALLED BETINA OF THE [facility], , ADVISED THAT CM FAXING UPDATE FOR REHAB ADMISSION. CM RECEIVED MESSAGE FROM MAKSIM CHILD OF [facility] WHO IS WORKING ON OUTPATIENT DIALYSIS UNIT IN [place]. CM FAXED UPDATE TO THE [facility] AT [phone]. [facility] HAS ACCEPTED PT AND IS WORKIING ON INSURANCE PRE AUTHORIZATION FOR REHAB SERVICES. MASON CALDERA IS WORKING ON OUTPATIENT DIALYSIS UNIT AND SCHEDULE THAT WILL ACCOMODATE REHAB TRANSPORTATION SHEDULE. SELENA Escobedo MANAGEMENT DCP- Discharge Planning Updated by [id number]: Brandin Garcia on 05/04/19 7:[address] Patient Name: ABBY PHILLIPS Encounter No: [id number] : 1945 Primary Insurance: [employer] Anticipated DC Date: 05-02-2019 Planned Disposition: [facility] Facility External Planned Provider: [facility], MEDICARE REHAB BED DCP follow-up note: CM SPOKE TO PT IN ROOM, DISCUSSED OPTIONS FOR REHAB, INFORMED OF DENIALS AND ACCEPTANCE BY THE [facility]. PT STATES HE WILL GO TO [facility] FOR REHAB AND WOULD LIKE TO GET HOME SOON POSSIBLE. PT STATES HE IS DOING WELL WITH THERAPY AND FEELS HE MAY COULD GO HOME TODAY. CM EXPLAINED HAVING SAFE DISCHARGE AND NOTED PT'S VERY LIMITED ABILITY PER THERAPY NOTES, ENCOURAGED PT TO TAKE ADVANTAGE OF REHAB SERVICES THAT INSURANCE COVERS AT THE [facility]. PT IN AGREEMENT. CM CALLED CHARLEY PHILLIPS, , ADVISED CHARLEY OF ABOVE INFORMATION. CHARLEY IN AGREEMENT WITH THE [facility] AND DOES NOT WANT TO HOLD PLACEMENT FOR REHAB UP ANY LONGER. CHARLEY DOES NOT FEEL THAT PT IS SAFE TO DISCHARGE HOME AT THIS POINT AND NEEDS THE REHAB. CM CALLED BETINA OF THE [facility], , ADVISED THAT PT AND FAMILY IN AGREEMENT WITH REHAB AT [facility]. BETINA ADVISED THAT THE FACILITY WOULD PREFER AN EARLY DIALYSIS TIME, DAY IS NOT IMPORTANT, THEY WILL NOT TRANSPORT AFTER 5PM. CM NOTIFIED MAKSIM CHILD [facility] WHO WILL SEEK OUTPATIENT DIALYSIS UNIT IN [place]. PT NOTIFIED, IMPORTANT MESSAGE FROM MEDICARE PROVIDED AND EXPLAINED. [facility] HAS ACCEPTED PT AND IS WORKIING ON INSURANCE PRE AUTHORIZATION FOR REHAB SERVICES. MAKSIM OF [facility] IS WORKING ON OUTPATIENT DIALYSIS UNIT AND SCHEDULE THAT WILL [facility]ODATE [facility] Brandin Garcia, CASE MANAGEMENT DCP- Discharge Planning Updated by [id number]: Brandin Garcia on 05/02/19 10:[address] Patient Name: ABBY PHILLIPS Encounter No: [id number] : 1945 Primary Insurance: [employer] Anticipated DC Date: 05-02-2019 Planned Disposition: [facility] Facility External Planned Provider: [facility], MEDICARE REHAB BED DCP follow-up note: CM RECEIVED CALL FROM SYD OF [facility], , WAS ADVISED THEY ARE "PACKED" WITH NO BEDS AVAILABLE. CM RECEIVED CALL FROM BETINA OF THE [facility] [phone], WHO INFORMED CM THAT CLINICALLY, THEY WILL ACCEPT AND WILL ROZ FOR PRIOR AUTHORIZATION FROM PT'S INSURANCE FOR REHAB; BETINA WILL CALL CM SHORTLY REGARDING DIALYSIS UNIT PLACEMENT SCHEDULE NEEDS. BETINA WILL ALSO CALL PT'S SON. BETINA OF [facility], , CALLED, SHE HAS SPOKEN TO CHARLEY WHO DELINED PLACEMENT AT THE [facility] AND WANTS PLACEMENT AT [facility] OR [facility]. CM CALLED CHARLEY PHILLIPS AT [phone], LEFT MESSAGE ASKING FOR IMMEDIATE RETURN CALL. PT HAS BEEN DECLINED BY THE [facility] ISIAH MANCERA AND [facility]; PT HAS BEEN ACCEPTED CLINICALLY BY THE [facility] FOR REHAB PLACEMENT. PT'S FAMILY HAS CANCELLED PLACEMENT; CM WAITING ON RETURN CALL FROM CHARLEY PHILLIPS, PT'S SON. Brandin Garcia, CASE MANAGEMENT DCP- Discharge Planning Updated by [id number]: Brandin Garcia on 05/02/19 8:[address] Patient Name: ABBY PHILLIPS Encounter No: [id number] : 1945 Primary Insurance: [employer] Anticipated DC Date: 05-02-2019 Planned Disposition: [facility] Facility External Planned Provider: [facility], MEDICARE REHAB BED DCP follow-up note: CM FAXED UPDATE TO [facility] AT [phone]. CM CALLED [facility], , WAS ADVISED BY ISAIAH THAT ADMISSIONS STAFF WERE IN THEIR MORNING MEETING; CM LEFT MESSAGE ASKING FOR UPDATE ON REHAB REFERRAL WITH CM CONTACT INFORMATION. CM FAXED REFERRAL UDPATE FOR [facility] AT [phone]. BETINA OF THE [facility], , WILL SCREEN PT FOR REHAB ADMISSION, TODAY, , TO ASSESS PT FOR ADMISSION; [facility] IS IN NETWORK WITH PT'S INSURANCE.. [facility]; CM WAITING ADMISSION DETERMINATIONS FROM [facility] AND [facility] FOR REHAB PLACEMENT. IF ACCEPTED AT EITHER FACILITY, CM WILL REQUEST CHANGE OF OUTPATIENT DIALYSIS UNIT. SELENA Escobedo DCP- Discharge Planning Updated by [id number]: Brandin Garcia on 04/29/19 2:[address] Patient Name: ABBY PHILLIPS Encounter No: [id number] : 1945 Primary Insurance: [employer] Anticipated DC Date: 05-02-2019 Planned Disposition: [facility] Facility External Planned Provider: [facility], MEDICARE REHAB BED DCP follow-up note: CM RECEIVED CALL FROM PRASHANTH OF THE [facility] [place], THEY WILL NOT ACCEPT ANOTHER DIALYSIS PATIENT AT THIS TIME. CM CALLED [facility], , WAS ADVISED THAT ADMISSIONS STAFF WERE IN MEETING; CM LEFT MESSAGE ASKING FOR UPDATE ON REHAB REFERRAL WITH CM CONTACT INFORMATION. CM CALLED AND SPOKE TO BETINA OF [facility], ; BETINA INFORMED CM THAT SHE HAS SEVERAL HOMES IN THE [place] AREA AND WILL SCREEN PT FOR REHAB ADMISSION, SHE WILL PERSONALLY COME TO HOSPITAL ON THURSDAY, , TO ASSESS PT FOR ADMISSION; [facility] IS IN NETWORK WITH PT'S INSURANCE. CM FAXED REFERRAL FOR [facility] AT [phone]. CM UPDATED PT WHO REPORTS WANTING REHAB PLACEMENT IN [place] CLOSE TO HIS SON POSSIBLE. CM UPDATE DR. COOPER VIA PHONE. DR. COOPER ADVISED THAT PT IS READY TO DISCHARGE TO REHAB WHEN ACCEPTED. PT HAS BEEN DECLINED BY THE [facility]; CM WAITING ADMISSION DETERMINATIONS FROM [facility] AND [facility] FOR REHAB PLACEMENT. IF ACCEPTED AT EITHER FACILITY, CM WILL REQUEST CHANGE OF OUTPATIENT DIALYSIS UNIT. SELENA Escobedo DCP- Discharge Planning Updated by [id number]: Brandin Garcia on 04/29/19 6:[address] Patient Name: ABBY PHILLIPS Encounter No: [id number] : 1945 Primary Insurance: [employer] Anticipated DC Date: 04-21-2019 Planned Disposition: [facility] Facility External Planned Provider:[facility] OR [facility] IN [place], MEDICARE REHAB BED DCP follow-up note: CM REVIEWED CHART, PT DID PARTICIPATE WITH THERAPY ON 04-27-19 AND 04-28-19. PT HAS DEMONSTRATED ABILITY TO TRANSFER AND SIT IN CHAIR FOR THREE OR MORE HOURS. CM FAXED REFERRAL UPDATE TO [facility] AT [phone]. AND THE [facility] AT [phone]. CM WAITING ADMISSION DETERMINATIONS FROM [facility] AND THE [facility]. IF EITHER FACLITY WILL ACCEPT, CM WILL REQUEST CHANGE OF DIALYSIS UNIT. PT'S INSURANCE ALSO REQUIRES PRIOR AUTHORIZATION FOR REHAB PLACEMENT. Brandin Garcia CASE MANAGEMENT DCP- Discharge Planning Updated by [id number]: Brandin Garcia on 04/28/19 6:[address] Patient Name: ABBY PHILLIPS Encounter No: [id number] : 1945 Primary Insurance: [employer] Anticipated DC Date: 04-21-2019 Planned Disposition: [facility] Facility External Planned Provider: [facility] OR [facility] [place], MEDICARE REHAB BED DCP follow-up note: CM REVIEWED CHART, PT DID PARTICIPATE WITH THERAPY ON 04-27-19. PT DID SIT UP IN CHAIR FOR THREE OR MORE HOURS. CM FAXED REFERRAL UPDATE TO [facility] AT [phone]. AND THE [facility] AT [phone]. CM WAITING ADMISSION DETERMINATIONS FROM [facility] AND THE [facility]. IF EITHER FACLITY WILL ACCEPT, CM WILL REQUEST CHANGE OF DIALYSIS UNIT. PT'S INSURANCE ALSO REQUIRES PRIOR AUTHORIZATION FOR REHAB PLACEMENT. SELENA Escobedo DCP- Discharge Planning Updated by [id number]: Brandin Garcia on 04/27/19 11:[address] Patient Name: ABBY PHILLIPS Encounter No: [id number] : 1945 Primary Insurance: [employer] Anticipated DC Date: 04-21-2019 Planned Disposition: [facility] Facility External Planned Provider: [facility] OR [facility] [place], MEDICARE REHAB BED DCP follow-up note: CM REVIEWED CHART, PT DID NOT PARTICIPATE WITH THERAPY ON 04-26-19. CM MET WITH PT IN ROOM TO DISCUSS DISCHARGE PLANNING AND NEEDS. PT DOES NOT WANT SNF CARE OR HOSPICE. PT INSISTS THAT HE WANTS REHAB SERVICES. CM EXPLAINED THAT PT HAS TO PARTICIPATE FULLY WITH THERAPY EACH TIME OFFERED INSURANCE WILL NOT PAY FOR REHAB SERVICES WITHOUT PARTICIPATION WITH OFFERED THERAPY. PT REPORTS UNDERSTANDING. PT PROMISES TO PARTICIPATE WITH THERAPY SERVICES AND UNDERSTANDS THAT HE MUST SIT UP IN CHAIR FOR THREE OR MORE HOURS TO SHOW HE CAN GO TO OUTPATIENT DIALYSIS. CM RECEIVED CALL FROM MATILDA OF THE [facility] WHO WILL FOLLOW, BUT WILL ONLY CONSIDER IF PT IS PARTICIPATING WITH THERAPY. CM TO FAX REFERRAL UPDATE [facility] AT [phone]. AND THE [facility] AT [phone], ONCE NEW THERAPY NOTES ARE DOCUMENTED ON 04-27. CM WAITING ADMISSION DETERMINATIONS FROM [facility] AND [facility]. IF EITHER FACLITY WILL ACCEPT, CM WILL REQUEST CHANGE OF DIALYSIS UNIT. PT'S INSURANCE ALSO REQUIRES PRIOR AUTHORIZATION FOR REHAB PLACEMENT. Brandin Garcia, CASE MANAGEMENT DCP- Discharge Planning Updated by [id number]: Brandin Garcia on 04/26/19 8:[address] Patient Name: ABBY PHILLIPS Encounter No: [id number] : 1945 Primary Insurance: [employer] Anticipated DC Date: 04-21-2019 Planned Disposition: [facility] Facility External Planned Provider:[facility] [place], MEDICARE REHAB BED DCP follow-up note: CM FAXED REFERRALUPDATE TO [facility] AT [phone]. CM FAXED REFERRAL UDPATE FOR [facility] TO PRASHANTH AT [phone]. CM TO DISCUSS WITH REHAB TODAY THAT PT NEEDS TO HAVE DEMONSTRATED ABILITY TO SIT FOR THREE OR MORE HOURS IN CHAIR FOR OUTPATIENT DIALYSIS. CM WAITING ADMISSION DETERMINATIONS FROM [facility] AND [facility]. Brandin Garcia, CASE MANAGEMENT DCP- Discharge Planning Updated by [id number]: Brandin Garcia on 04/25/19 1:[address] Patient Name: ABBY PHILLIPS Encounter No: [id number] : 1945 Primary Insurance: [employer] Anticipated DC Date: 04-21-2019 Planned Disposition: [facility] Facility External Planned Provider: [facility] [place], MEDICARE REHAB BED DCP follow-up note: CM RECEIVED CALL FROM CAHRLEY PHILLIPS, PT'S SON, WHO ASKED WHAT IS TAKING SO LONG TO GET PT INTO REHAB IN [place]. CM EXPLAINED PLACEMENT PROCESS, INSURANCE APPROVAL TIME FRAME AND ALSO THE PROCESS OF HAVING TO GET ACCEPTING DIALYSIS UNIT IF CM CAN GET FACILITY TO ACCEPT PT. CHARLEY REPORTS UNDERSTANDING. CM CALLED [facility], , SPOKE TO SYD WHO INFORMED CM THAT SHE DID NOT GET THE REFERRAL. CM CONFIRMED FAX NUMBER, REVIEWED AND FOUND FAX CONFIRMATION FROM THURSDAY. CM FAXED REFERRAL AND UPDATE TO [facility] AT [phone]. CM SPOKE PRASHANTH OF THE [facility], , SHE WILL CALL THE [facility] AND GET UPDATE SHE HAS NOT "HEARD A WORD". CM FAXED REFERRAL UDPATE FOR [facility] TO PRASHANTH AT [phone]. CM WAITING [facility]. Brandin Garcia, CASE MANAGEMENT DCP- Discharge Planning Updated by [id number]: Brandin Garcia on 04/22/19 10:[address] Patient Name: ABBY PHILLIPS Encounter No: [id number] : 1945 Primary Insurance: [employer] Anticipated DC Date: 04-21-2019 Planned Disposition: [facility] Facility External Planned Provider: [facility] [place], MEDICARE REHAB BED DCP follow-up note: CM SPOKE TO PT IN ROOM REGARDING DISCHARGE PLANNING. PT WILL GO TO REHAB IN [place] SO HE WILL BE CLOSE TO HIS SON. PT ASKED CM TO HURRY UP HE IS TIRED OF BEING IN THE HOSPITAL. CM EXPLAINED TO PT THAT IF HE WOULD HAVE DECIDED SOONER, CM WOULD HAVE ALREADY BEEN WORKING ON REHAB PLACEMENT. PT SIGNED CONSENT FOR [facility] SUGGESTED BY HIS SON AND FOR ANY [facility] IN [place]. CM EXPLAINED TO PT THAT HIS INSURANCE MAY TAKE SEVERAL DAYS TO APPROVE OR DECLINE REHAB SERVICES AND THAT CM WILL HAVE TO FIND A FACILITY THAT WILL TRANSPORT TO DIALYSIS AND IF ALL OF THAT IS DONE, CM WILL HAVE TO REQUEST A NEW DIALYSIS UNIT. PT REPORTS UNDERSTANDING. CM CALLED [facility], , SPOKE TO KAVIN WHO WILL SCREEN FOR ADMISSION. CM FAXED REFERRAL TO [facility] AT [phone]. CM NOTIFIED PRASHANTH OF THE [facility], , OF REFERRAL. CM FAXED REFERRAL FOR [facility] TO PR[facility] AT [phone]. CM WAITING ADMISSION DETERMINATIONS FROM [facility] AND [facility]. Brandin Garcia, CASE MANAGEMENT DCP- Discharge Planning Updated by [id number]: Brandin Garcia on 04/21/19 4:[address] Patient Name: ABBY PHILLIPS Encounter No: [id number] : 1945 Primary Insurance: [employer] Anticipated DC Date: 04-21-2019 Planned Disposition: [facility] Facility External Planned Provider: [facility] OR OTHER [facility] IN [place] DCP follow-up note: CM RECEIVED CALL FROM CHARLEY PHILLIPS, PT'S SON, WHO REPORTS THAT HE HAS TALKED TO PT VIA PHONE AND PT IS NOW AGREEING TO GO TO [facility] IN [place], CLOSE TO HIS SON. CM ATTEMPTED TO SEE PT WHO WAS OUT OF ROOM AT APPROXIMATELY 1345 HOURS. CM WILL SPEAK TO PT SOON POSSIBLE REGARDING [facility] IN [place] AND SEND REFERRALS IF PT WILL SIGN THE CONSENT. Brandin Garcia CASE MANAGEMENT DCP- Discharge Planning Updated by [id number]: Brandin Garcia on 04/21/19 11:[address] Patient Name: ABBY PHILLIPS Encounter No: [id number] : 1945 Primary Insurance: [employer] Anticipated DC Date: 04-21-2019 Planned Disposition: Left Against Medical Advice DCP follow-up note: CM SPOKE TO BEDSIDE NURSE WHO REPORTS PT'S SISTER, JORGE, CALLED AND STATES SHE WILL NOT BE PICKING PT UP FOR TRANSPORT HOME. CM MET WITH PT IN ROOM TO DISCUSS DISCHARGE PLANNING AND NEEDS. PT REPORTS STILL PLANNING TO LEAVE WHEN HE FINDS A RIDE. CM EXPLAINED THAT PT'S FAMILY MEMBERS ARE CALLING AND INFORMING HOSPITAL STAFF THEY ARE NOT PICKING UP PT. PT STATES HE HAS FRIENDS THAT ARE GOING TO HELP. CM PROVIDED PT WITH MEDICARE WEBSITE RESULTS FOR [facility] WITHIN 50 MILES OF HIS HOME. CM EXPLAINED THAT [facility] WILL NOT ACCEPT PT BACK AND THAT IF PT CHANGES HIS MIND AND DECIDES TO GO TO REHAB, CM WILL NEED PT'S TOP TWO SELECTIONS AND SIGNATURE ON THE CHOICE FORM. IMPORTANT MESSAGE FROM MEDICARE PROVIDED AND EXPLAINED. PT ASKED CM TO CALL ADAM SANCHES, PHARMACIST AT [facility] TO HAVE HER , JOHN SANCHES, CALL PT. CM CALLED AND WAS ADVISED BY ADAM THAT AGUSTIN SPOKE TO PT YESTERDAY AND SHE WILL LET HER KNOW THAT PT WANTS TO TALK TO HIM AGAIN. CM STILL REFUSING [facility] FACLITY PLACEMENT. CM WAITING ON PT TO DEVELOP TRANSPORTATION HOME. IF TRANSPORTATION IS VERIFIED, CALL [facility], , WILL HAS AGREED TO ARRANGE PORTABLE OXGYEN TO HOSPITAL FOR PT TO LEAVE HOSPITAL. CM TO CONTINUE TO FOLLOW AND ASSIST NEEDED. Chief Safety Officer: Brandin Garcia DCP- Discharge Planning Updated by [id number]: Brandin Garcia on 04/21/19 8:[address] Patient Name: ABBY PHILLIPS Encounter No: [id number] : 1945 Primary Insurance: [employer] Anticipated DC Date: 04-21-2019 Planned Disposition: Left Against Medical Advice DCP follow-up note: CM SPOKE TO HERIBERTO SANCHES REGARDING PT'S DISCHARGE PLAN. TREATMENT TEAM CONCERNED THAT PT DOES NOT HAVE SAFE DISCHARGE PLAN. CM MET WITH HERIBERTO SANCHES WITH PT IN ROOM. PT INSISTS THAT HE WILL GO HOME, JOHN SANCHES, , WILL PICK HIM UP. PT REPORTS ALEXSANDRA LOPEZ, A FRIEND FROM [employer] WILL ASSIST WITH CARING FOR PT IN HOME AND ASSIST WITH GETTING TO AND FROM DIALYSIS. PT REPORTS HE NORMALLY DRIVES HIMSELF TO AND FROM DIALYSIS AND IS ABLE TO TRANSFER HIMSELF TO A WHEELCHAIR, GET TO HIS CAR, GET THE WHEELCHAIR INTO THE TRUCK OF THE CAR AND THEN WALK TO AND GET INTO THE DRIVERS SEAT HOLDING ON TO THE CAR. PT REPORTS HAVING ELECTRIC AND MANUAL WHEELCHAIR AND IS ABLE TO TRANSFER HIMSELF FROM BED TO CHAIR AND CHAIR TO BED. PT DOES NOT KNOW THE NUMBER TO HIS FRIEND ALEXSANDRA, TO VERIFY HE WILL ASSIST AFTER DISCHARGE. PT REPORTS HIS SISTER HANDY LIVES IN HIS HOUSE AND HAS FOR FOUR MONTHS. CM ADVISED THAT FAMILY INFORMED STAFF HERE THAT PT NEEDS NURSING REHAB. PT REPORTS THAT HIS FAMILY IS WANTING TO KEEP HIM AWAY AND IN THE PRISON. HERIBERTO SANCHES ADVISED THAT PT MUST HAVE A SAFE AND VERIFIABLE PLAN TO DISCHARGE HOME. CM ATTEMPTED TO CALL JOHN SANCHES, ; THERE WAS NO ANSWER AND NO MESSAGE MACHINE. CM CALLED [facility], , SPOKE TO SQUIRREL MAN WILL WHO INFORMED CM THAT THEY CAN DELIVER PORTABLE OXYGEN TO PT'S ROOM FOR DISCHARGE IF NEEDED. CM SPOKE TO PT IN ROOM, HERIBERTO SANCHES WAS IN ROOM SPEAKING TO PT. PT STATES HE IS LEAVING "AMA". HERIBERTO VERÓNICA INFORMED PT THAT PT MUST HAVE A PERSON TO VERIFY THEY ARE TRANSPORTING PRIOR TO ANY AMA FORMS BEING PRESENTED. CM ADVISED PT IF HE IS ABLE TO VERIFY TRANSPORATATION BY CM SPEAKING TO THAT PERSON AND THEY AGREE TO TRACK LABORER PT, CM WILL ASK CHADE TO DELIVER PORTABLE OXYGEN TO ROOM. CM ASKED THAT IF PT CHANGES HIS MIND AND DECIDES TO GO TO [facility], TO PLEASE NOTIFY CM AND CM WILL BE GLAD TO ASSIST WITH PLACEMENT. PT DECLINED. CM WAITING ON PT TO DEVELOP TRANSPORTATION HOME. IF TRANSPORTATION IS VERIFIED, CALL JEANNIE, , WILL HAS AGREED TO ARRANGE PORTABLE OXGYEN TO HOSPITAL FOR PT TO LEAVE HOSPITAL. CM TO CONTINUE TO FOLLOW AND ASSIST NEEDED. Chief Safety Officer: Brandin Garcia DCP- Discharge Planning Updated by [id number]: Brandin Garcia on 04/20/19 1:[address] Patient Name: ABBY PHILLIPS Encounter No: [id number] : 1945 Primary Insurance: [employer] Anticipated DC Date: 04-19-2019 Planned Disposition: Home DCP follow-up note: CM MET WITH PT IN ROOM AND ENCOURAGED PT TO GO TO REHAB PRIOR TO DISCHARGE HOME. PT CONTINUES TO REFUSE AND REPORTS HIS SISTER WILL PICK HIM UP FOR DISCHARGE HOME. PT STATES HE MAY NEED OXYGEN FROM [facility] AGAIN TO GO HOME. CM EXPLAINED THAT IF HIS SISTER IS PICKING HIM UP AND SHE IS STAYING WITH PT IN PT'S HOME, SHE SHOULD BRING OXYGEN WITH HER. PT WILL REQUEST HIS SISTER BRING OXYGEN WITH HER. HARSHAL RECEIVED CALL FROM MIRIAM GORDON, , WHO INFORMED CM THAT PT HAS BEEN CALLING STATING HE IS GOING TO BE DISCHARGED TODAY AND NEEDS A RIDE HOME. JORGE STATES PT NEEDS TO GO BACK TO NURSING FACILITY FOR REHAB AND NOT HOME. HARSHAL EXPLAINED THAT CM CANNOT MAKE PT DO SOMETHING AGAINST PT'S WILL AND THAT IF PT IS NOT DEEMED INCOMPETENT BY A PHYSICIAN OR COURT, PT CAN MAKE BAD DECISIONS FOR HIMSELF. CM EXPLAINED HOW TO FILE FOR GUARDIANSHIP OF A PERSON AND THAT THIS WOULD HAVE TO BE GRANTED FOR ANYONE TO MAKE PT DO SOMETHING AGAINST HIS WILL. JORGE REPORTS UNDERSTANDING. PT PLANS TO DISCHARGE HOME WITH HIS SISTER, PT REPORTS HIS SISTER WILL PICK HIM UP FOR DISCHARGE HOME. PT DECLINES PRISON, MCC OR REHAB PLACEMENT. PATIENT IS NOT APPROPRIATE FOR HOME HEALTH PER [facility]. Chief Safety Officer: Brandin Garcia DCP- Discharge Planning Updated by [id number]: Brandin Garcia on 04/19/19 3:[address] Patient Name: ABBY PHILLIPS Admission Status: ER Accout number: [id number] Admission Date: 04-19-2019 : 1945 Admission Diagnosis: Attending: SAMUEL COOPER Current LOS: 1 Anticipated DC Date: 04-19-2019 Planned Disposition: Home Primary Insurance: [employer] Discharge Planning Comments: CM MET WITH PT IN ROOM TO DISCUSS DISCHARGE PLANNING AND NEEDS. PT REPORTS LIVING AT HOME DEPENDENTLY WITH HIS SISTER HANDY WHO IS STAYING WITH PT IN PT'S HOME TO CARE FOR PT. . PT HAS [facility] LIFT AND WHEELCHAIR WELL HOME AND PORTABLE OXYGEN FROM [facility]. PT HAS NO OUTSIDE SERVICES ASSISTING IN THE HOME [facility] DECLINED TO ADMIT HIM AND TOLD HIM HE HAS TO BE DOING BETTER FOR HOME HEALTH SERVICES. CM DISCUSSED AVAILABILITY OF HOME HEALTH, REHAB SERVICES AND MEDICAL EQUIPMENT. PT DECLINED PRISON OR REHAB PLACEMENT. PT DENIES DISCHARGE NEEDS, REPORTS HIS SISTER HANDY WILL PICK HIM UP FOR DISCHARGE HOME. PT REPORTS MISSING DIALYSIS BECAUSE HE WENT ON THURSDAY AND THEY DID NOT HAVE A SLING TO USE ON THE LIFT TO PICK HIM UP AT THE DIALYSIS UNIT. PT STATES HE HAS A SLING AT HOME AND FORGOT ABOUT IT. PT REPORTS HIS SISTER USES THE [employer] LIFT TO GET HIM TO THE WHEELCHAIR AND THEY WILL LEAVE THE SLING UNDER HIM FOR DIALYSIS TO USE FROM NOW ON. CHOICE SIGNED FOR [facility] TO VERIFY WITH THEM THAT THEY WILL NOT SEE PT. CM CALLED [facility], , LEFT MESSAGE ASKING FOR THE NURSE TO CALL CM BACK. PT PLANS TO DISCHARGE HOME WITH HIS SISTER, PT REPORTS HIS SISTER WILL PICK HIM UP FOR DISCHARGE HOME. PT DECLINES PRISON, [facility] OR REHAB PLACEMENT. Chief Safety Officer: Brandin Garcia Appended by Brandin Garcia on 04/19/2019 16:56 CDT: CM RECEIVED CALL FROM JERICA OF [facility] WHO INFORMED CM THAT THEY DID GO FOR THE HOME HEALTH ADMIT AND INFORMED PT AND FAMILY THAT PT NEEDS REHAB AND IS NOT APPROPRIATE FOR HOME HEALTH SERVICES AT THIS TIME. PT PLANS TO DISCHARGE HOME WITH HIS SISTER, PT REPORTS HIS SISTER WILL PICK HIM UP FOR DISCHARGE HOME. PT DECLINES PRISON, [facility] OR REHAB PLACEMENT. Chief Safety Officer: Brandin Garcia DCPIA - Discharge Planning Initial Assessment Updated by [id number]: Brandin Garcia on 04/22/19 11:13 am * Is the patient Alert and Oriented? Yes * How many steps to enter\\exit or inside your home? NONE * PCP DR. ARACELI SIDHU * Pharmacy [facility] * Preadmission Environment Home with Family * ADLs Partial Dependent * Partial ADLs (Assistance needed) Ambulation Bathing Dressing Medication Management Toileting Transfers * Equipment Areli Lift Oxygen Wheelchair * Other Equipment HOME AND PORTABLE OXYGEN, [facility] * List name and contact numbers for known caregivers / representatives who currently or will assist patient after discharge: HANDY JONES, SISTER [phone] JORGE GORDON, SISTER, CHARLEY PHILLIPS, SON, * Verbal permission to speak to the caregivers and representatives has been obtained from the patient. Yes * Community resources currently utilized None * Please name any agencies selected above. PT HAD INTAKE WITH [facility] FROM [place], ACCORDING TO PT, THEY DECLINED T PROVIDE SERVICES UNTIL HE WAS "DOING BETTER" OUTPATIENT DIALYSIS , TTS, [address], [place]. PT REPORTS HE HAS BEEN DRIVING HIMSELF. * Additional services required to return to the preadmission environment? No * Can the patient safely return to the preadmission environment? Yes * Has this patient been hospitalized within the prior 30 days at any hospital? Yes Coverage Notice Reviewer: [id number] Skylar Augustin Notice Issued Date-Time: 04/19/2019 9:30 Notice Type: Medicare Outpatient Observation Notice Notice Delivered To: Patient Relationship to Patient: Self [employer] Cutter Name: Delivery Method: HAND - Hand Delivered Anusha Days: Prior Verbal Notification: Recipient Understood Notice: Yes Recipient Signature: Yes Med Rec Note Co-signed by Attending: Coverage Notice Comment: Reviewer: [id number] Garcia Notice Issued Date-Time: 04/19/2019 12:15 Notice Type: Patient Choice Letter Notice Delivered To: Patient Relationship to Patient: Le[employer] Cutter Name: Delivery Method: HAND - Hand Delivered Anusha Days: Prior Verbal Notification: Recipient Understood Notice: Yes Recipient Signature: Yes Med Rec Note Co-signed by Attending: Coverage Notice Comment: [facility] Reviewer: LIO Garcia Notice Issued Date-Time: 04/21/2019 11:45 Notice Type: IM Discharge Notice Notice Delivered To: Patient Relationship to Patient: [employer] Cutter Name: Delivery Method: HAND - Hand Delivered Anusha Days: Prior Verbal Notification: Recipient Understood Notice: Yes Recipient Signature: Yes Med Rec Note Co-signed by Attending: Coverage Notice Comment: Reviewer: LIO Garcia Notice Issued Date-Time: 04/22/2019 16:05 Notice Type: Patient Choice Letter Notice Delivered To: Patient Relationship to Patient: [employer] Cutter Name: Delivery Method: HAND - Hand Delivered Anusha Days: Prior Verbal Notification: Recipient Understood Notice: Yes Recipient Signature: Yes Med Rec Note Co-signed by Attending: Coverage Notice Comment: [facility]. Reviewer: LIO Garcia Notice Issued Date-Time: 05/02/2019 12:48 Notice Type: IM Discharge Notice Notice Delivered To: Patient Relationship to Patient: Le[employer] Cutter Name: Delivery Method: HAND - Hand Delivered Anusha Days: Prior Verbal Notification: Recipient Understood Notice: Yes Recipient Signature: Yes Med Rec Note Co-signed by Attending: Coverage Notice Comment: Reviewer: LIO Garcia Notice Issued Date-Time: 05/10/2019 17:00 Notice Type: IM Discharge Notice Notice Delivered To: Patient Relationship to Patient: Le[employer] Cutter Name: Delivery Method: HAND - Hand Delivered Anusha Days: Prior Verbal Notification: Recipient Understood Notice: Yes Recipient Signature: Yes Med Rec Note Co-signed by Attending: Coverage Notice Comment: Last DP export: 05/11/19 1:12 Patient Name: ABBY PHILLIPS Page [id number] at 0723 All edits/amendments must be made on the electronic document DICTATION DATE: 05/12/19722 DEFENSE ATTORNEY: APRIL 05/12/19722 RPT#: [id number] DC DATE:05/11/19 STATUS: DIS IN [facility] [address] [place] [address] END OF REPORT
== END 2019-05-11 18:53 | DRG 252 ==
LOC: D.ER 15:52 → D.M2 20:17 → OBSVTIME 20:17 → D.M2 20:17 → D.ICU 04-19 13:25 → D.M2 05-06 13:23
PROVIDERS: Emergency Medicine; Family Medicine; Internal Medicine; Internal Medicine Nephrology; Surgery; ADMIT Internal Medicine; ATTEND Internal Medicine
PROC: 5A1D70Z Performance of Urinary Filtration, Intermittent, Less than 6 Hours Per Day (ICD-10-PCS; principal; 2019-04-19)
PROC: 03L80ZZ Occlusion of Left Brachial Artery, Open Approach (ICD-10-PCS; 2019-05-03 12:30)
PROC: 5A12012 Performance of Cardiac Output, Single, Manual (ICD-10-PCS; 2019-05-04)
PROC: 0BH17EZ Insertion of Endotracheal Airway into Trachea, Via Natural or Artificial Opening (ICD-10-PCS; 2019-05-04)
PROC: 5A1945Z Respiratory Ventilation, 24-96 Consecutive Hours (ICD-10-PCS; 2019-05-04)
DX: I13.2 Hypertensive heart and chronic kidney disease with heart failure and with stage 5 chronic kidney disease, or end stage renal disease (principal); I50.31 Acute diastolic (congestive) heart failure; N18.6 End stage renal disease; J69.0 Pneumonitis due to inhalation of food and vomit; J96.21 Acute and chronic respiratory failure with hypoxia; I46.9 Cardiac arrest, cause unspecified; G93.41 Metabolic encephalopathy; J44.0 Chronic obstructive pulmonary disease with (acute) lower respiratory infection; E11.52 Type 2 diabetes mellitus with diabetic peripheral angiopathy with gangrene; I96 Gangrene, not elsewhere classified; T82.898A Other specified complication of vascular prosthetic devices, implants and grafts, initial encounter; N39.0 Urinary tract infection, site not specified; E11.22 Type 2 diabetes mellitus with diabetic chronic kidney disease; Z99.2 Dependence on renal dialysis; E11.51 Type 2 diabetes mellitus with diabetic peripheral angiopathy without gangrene; D63.1 Anemia in chronic kidney disease; I25.10 Atherosclerotic heart disease of native coronary artery without angina pectoris; E03.9 Hypothyroidism, unspecified; E87.5 Hyperkalemia; Y83.9 Surgical procedure, unspecified as the cause of abnormal reaction of the patient, or of later complication, without mention of misadventure at the time of the procedure; L98.499 Non-pressure chronic ulcer of skin of other sites with unspecified severity; R53.81 Other malaise